=== PATIENT | male | born 1980 | race Caucasian/White ===

== ENCOUNTER 2017-07-15 05:53 | Day surgery (SDC) | payer OTHER ==
[2017-07-08 09:55] VITALS: BMI 32.0
--- NOTE | 2017-07-08 10:17 | PAT Medication Instructions ---
Service Date Jul 08, 2017. Current Home Medication List Atorvastatin (Lipitor), 80 MG PO QPM Cholecalciferol (D 1000), 1 CAP PO QPM Fenofibrate (Tricor), 54 MG PO QPM Insulin Glargine (Lantus), 60 UNITS SC QAM Insulin Glulisine (Apidra), 12 UNITS SC AC Lisinopril/Hctz (Zestoretic 20MG/25MG), 1 TAB PO QPM Medication Instructions For Your Scheduled Surgery - Hold the following medications 24 hours prior to surgery: Lisinopril/Hctz (Zestoretic 20MG/25MG), 1 TAB PO QPM Fenofibrate (Tricor), 54 MG PO QPM - Hold the following medications the morning of surgery: Insulin Glulisine (Apidra), 12 UNITS SC AC - Take the following medications as scheduled the night before surgery: Atorvastatin (Lipitor), 80 MG PO QPM Cholecalciferol (D 1000), 1 CAP PO QPM - For Insulin Dependent Diabetic patients: Test blood sugar A.M. of surgery. - If Blood sugar greater than 150, take half of your regular dose of: Insulin Glargine (Lantus), take 30 units - If Blood sugar less than 150, do not take any: Insulin Glargine (Lantus ) If you have any questions please call us at [phone] or [phone] or [phone]
--- NOTE | 2017-07-08 10:46 | DIAGNOSTIC IMAGING REPORT ---
CHEST 2 VIEWS ROUTINE CLINICAL HISTORY: PAT COMPARISON STUDY: No previous studies for comparison. FINDINGS: The bones soft tissues and hemidiaphragms are normal. The cardiomediastinal silhouette is normal. The lungs are clear. The pulmonary vasculature is normal. IMPRESSION: Negative chest. The above report was generated using voice recognition software. It may contain grammatical, syntax or spelling errors. Electronically signed by: Reinaldo Calix M.D. 07/08/2017 10:45 AM Dictated Date/Time: 07/08/2017 10:44 AM
[2017-07-08 11:13] LABS: CALCIUM 8.4 mg/dl (8.5-10.1); CREATININE 3.42 mg/dl (0.60-1.40); POTASSIUM 4.5 mmol/L (3.5-5.1)
[2017-07-08 11:15] LABS: INR 0.9 (0.9-1.1); PTT PATIENT 24.1 SECONDS (21.0-31.0)
[2017-07-08 11:18] LABS: HEMATOCRIT 31.8 % (42-52); HEMOGLOBIN 11.1 g/dL (14.0-18.0); MEAN CELL VOLUME 85.3 fL (80-100); MEAN CORPUSCULAR HEMOGLOBIN 29.8 pg (25-34); MEAN CORPUSCULAR HGB CONC 34.9 g/dl (32-36); MEAN PLATELET VOLUME 9.8 fL (7.4-10.4); PLATELET COUNT 333 K/uL (130-400); RED CELL DISTRIBUTION WIDTH CV 13.2 % (11.5-14.5); RED CELL DISTRIBUTION WIDTH SD 40.6 fL (36.4-46.3); WHITE BLOOD COUNT 7.26 K/uL (4.8-10.8)
[2017-07-08 11:24] LABS: BASO % 0.7 %; BASO ABS # 0.05 K/uL (0-0.2); EOS % 3.6 %; EOS ABS # 0.26 K/uL (0-0.5); IG# 0.09 K/uL (0.00-0.02); LYMPH % 17.1 %; LYMPH ABS # 1.24 K/uL (1.2-3.4); MONO % 6.6 %; MONO ABS # 0.48 K/uL (0.11-0.59); NEUT % 70.8 %; NEUT ABS # 5.14 K/uL (1.4-6.5)
[2017-07-08 11:38] LABS: HEMOGLOBIN A1C 8.6 % (4.5-5.6)
[~2017-07-15] VITALS: Ht 177.8 cm; Wt 102.3 kg
--- NOTE | 2017-07-15 05:51 | History and Physical ---
History & Physical Date of Service Jul 15, 2017. History & Physical Name: JORDAN PHAN [facility] Number: [id number] : 1980 Date of Service: 07/01/2017 Daria Alvarez DO [address] [place] [address] Alvarez: I had the pleasure of seeing Mr. Phan today for followup. As you know, he is a 37-year-old white gentleman with nephrotic syndrome in need of an access for pending dialysis. ALLERGIES: None known. MEDICATIONS: Amlodipine,SoloSTAR, atorvastatin,cholecalciferol, fenofibrate, hydrochlorothiazide and lisinopril. PAST MEDICAL HISTORY: Positive for type 1 diabetes, epilepsy, hypertension, mixed dyslipidemia, sarcoidosis, shingles, tobacco use. FAMILY HISTORY: Positive for hypertension in his father. SOCIAL HISTORY: He is single. He is a former smoker. He quit in 1998, is a current user of snuff and he drinks 2 cans a week. REVIEW OF SYSTEMS: Ten systems were reviewed, only complaint is of occasional back pain. PHYSICAL EXAMINATION: The patient is awake, oriented x3, is in no apparent distress. Blood pressure is 130/80 on the right, 140/80 on the left. Head and neck within normal limits. No carotid bruits. Lungs are clear. Heart, regular rate and rhythm. Abdominal exam is benign. Vascular exam, his radials , carotids, supratemporal arteries +2 bilaterally. His venous imaging showed a usable cephalic vein in the right forearm. Left arm had no usable veins other than the upper arm basilic vein. He is right-handed. Neurologic exam is grossly intact. IMPRESSION: End-stage renal disease. PLAN AND RECOMMENDATION: At this point, we recommend a right wrist AV fistula. He understood the risks, options, benefits and agreed to go ahead with this procedure. This will be scheduled in the near future. We will keep you informed as to results. Thank you very much for allowing us to participate in the care of this patient. #[id number] Signature Line Electronic Signature on File CC: Daria Rivera [place], [address] [place] [address] * Electronically Reviewed/Signed by: Juan Reina MD Author Signature Dt/Tm:07/03/2017 09:37 AM School Community Relations Coordinator Angelo Schreiber [facility] [place], [address] [place], [place] [address] ANDREW /FELECIA Result Type: .Consult Date of Service: July 01, 2017 00:00 Authorization Status: Final Subject: Consult Ltr Author or Import Date: MD Reina Eugene J on July 01, 2017 16:16 Verified By: MD Reina Eugene J on July 03, 2017 09:37 Encounter info: [id number], [place] [address], Clinic, 07/01/2017 - 07/02/2017 Contributor system: [id number]
[~2017-07-15 05:53] MED LIST: ATOR-26 PO; CHOL100041 PO; FENO54TA PO; INSDGI SC; LISI-788 PO; [UNRECOGNIZED DRUG - OTHER] SC
[2017-07-15] MEDS ORDERED: CEFAZOLIN 2000MG IV PUSH 15 ML IV SCH (06:00)
[2017-07-15] MEDS ORDERED: SODIUM CHLORIDE 0.9% 1000ML 1,000 ML IV SCH ×2 (06:00)
[2017-07-15 06:07] VITALS: BP 143/86; PULSE 80; TEMP 36.7; O2SAT 97; Ht 177.8 cm; Wt 102.3 kg
[2017-07-15] MEDS ORDERED: FENTANYL CITRATE INJ 50 MCG/1 ML 2 ML VIAL ONE (06:22)
[2017-07-15] MEDS ORDERED: MIDAZOLAM HCL 1 MG/ML 2ML VIAL ONE ×2 (06:22→08:02)
[2017-07-15] MEDS ORDERED: PROPOFOL IV EMULSION 10 MG/ML 20 ML VIAL IV ONE ×3 (06:23→08:03)
[2017-07-15] MEDS ORDERED: LIDOCAINE HCL 2% 2 ML VIAL (20MG/ML) ONE (06:23)
[2017-07-15] MEDS ORDERED: ONDANSETRON INJ 2 MG/ML 2 ML VIAL ONE (06:32)
[2017-07-15] MEDS ORDERED: LIDOCAINE HCL 1% 20 ML VIAL ONE (06:54)
[2017-07-15] MEDS ORDERED: THROMBIN FOR SOLN 20000 UNIT KIT ONE (06:54)
[2017-07-15] MEDS ORDERED: GELATIN SPONGE 12-7MM ONE (06:54)
[2017-07-15] MEDS ORDERED: BUPIVACAINE/EPINEPHRINE 0.5% MPF 1:200,000 30 ML VIAL ONE (06:54)
[2017-07-15] MEDS ORDERED: HEPARIN SOD (PORCINE) 1000 UNIT/ML 10 ML VIAL ONE ×2 (06:55→08:12)
[2017-07-15 06:56] LABS: CALCIUM 8.7 mg/dl (8.5-10.1); CREATININE 3.64 mg/dl (0.60-1.40); POTASSIUM 4.6 mmol/L (3.5-5.1)
[2017-07-15] MEDS ORDERED: ATROPINE SULFATE 0.1 MG/ML 5ML SYR IV PRN (07:00)
[2017-07-15] MEDS ORDERED: FENTANYL CITRATE INJ 50 MCG/1 ML 2 ML VIAL IV PRN (07:00)
[2017-07-15] MEDS ORDERED: ONDANSETRON INJ 2 MG/ML 2 ML VIAL IV PRN (07:00)
[2017-07-15] MEDS ORDERED: EpHEDrine SULFATE INJ 50 MG/ML AMP IV PRN (07:00)
--- NOTE | 2017-07-15 07:20 | History & Physical Bridge Note ---
H&P Re-Evaluation Bridge Note: I have examined the patient, reviewed the History & Physical and in the interval since the performance of the History & Physical I have noted the following changes of clinical significance: No changes noted
--- NOTE | 2017-07-15 08:43 | [facility] Post Operative Brief Note ---
Immediate Operative Summary Operative Date Jul 15, 2017. Pre-Operative Diagnosis End-stage renal disease Post-Operative Diagnosis End stage renal disease Procedure(s) Performed Right Wrist Arteriovenous Fistula creation Surgeon Dr. Reina Bag Tester Surgeon(s) Vik Ware PA-C Estimated Blood Loss 5 cc Findings Consistent with Post-Op Diagnosis Specimens none, as per surgeon Drains None Anesthesia Type MAC Complication(s) none Disposition Accompanied Pt To Recover: no Disposition: Recovery Room / PACU
[2017-07-15] MEDS ORDERED: OXYC-57 PO (08:48)
--- NOTE | 2017-07-15 08:49 | Discharge Instructions ---
Discharge Instructions Date of Service Jul 15, 2017. Visit Reason for Visit: End Stage Renal Disease Discharge Discharge Diagnosis / Problem: End stage renal disease Discharge Goals Goal(s): Therapeutic intervention Activity Recommendations Activity Limitations: per Instructions/Follow-up section Lifting Limitations: none Exercise/Sports Limitations: none May Resume Sexual Activity: when tolerated Shower/Bathe: tomorrow Driving or Machine Use: no limitations Anesthesia . Post Anesthesia Instructions: If you have had General Anesthesia or IV Sedation: * Do not drive today. * Resume driving when surgeon permits. * Do not make important decisions or sign legal documents today. * Call surgeon for: 1. Temperature elevations greater than 101 degrees F. 2. Uncontrollable pain. 3. Excessive bleeding. 4. Persistent nausea and vomiting. 5. Medication intolerance (nausea, vomiting or rash). * For nausea and vomiting use only clear liquids such as: tea, soda, bouillon until nausea subsides, then gradually increase diet as tolerated. * If you have any concerns or questions, call your surgeon's office. If physician is unavailable and it is an emergency, call 911 or go to the nearest emergency room. . Instructions / Follow-Up Instructions / Follow-Up Call [phone] to schedule a follow up appointment if one not already scheduled. ACTIVITY RECOMMENDATIONS: See Above SPECIAL CARE INSTRUCTIONS: Call your doctor if: * Temperature above 101 degrees * Pain not relieved by pain medicine ordered * There is increased drainage or redness from any incision * You have any unanswered questions or concerns. Diet Recommendations Recommended Home Diet: resume previous diet Procedures Procedures Performed: Right Wrist Arteriovenous Fistula creation Pending Studies Studies pending at discharge: no Medical Emergencies . Who to Call and When: Medical Emergencies: If at any time you feel your situation is an emergency, please call 911 immediately. . Non-Emergent Contact Non-Emergency issues call your: Surgeon . . "Provider Documentation" section prepared by Juan Reina. .
--- NOTE | 2017-07-15 09:31 | Anesthesiology Progress Note ---
Anesthesia Post Op Note Date & Time Jul 15, 2017 at 09:31 Vital Signs Pain Intensity: 0 Vital Signs Past 12 Hours Date Time Temp Pulse Resp B/P (MAP) Pulse Ox O2 Delivery O2 Flow Rate FiO2 07/15/17 09:20 36.5 75 20 119/73 97 Room Air 07/15/17 09:10 76 16 129/83 92 Room Air 07/15/17 09:03 36.4 81 17 113/70 96 Room Air 07/15/17 06:07 36.7 80 18 143/86 (105) 97 Room Air Notes Mental Status: alert / awake / arousable, participated in evaluation Pt Amnestic to Procedure: Yes Nausea / Vomiting: adequately controlled Pain: adequately controlled Airway Patency, RR, SpO2: stable & adequate BP & HR: stable & adequate Hydration State: stable & adequate Anesthetic Complications: no major complications apparent
[2017-07-15 09:32] VITALS: BP 120/67; PULSE 99; TEMP 36.5; O2SAT 93
--- NOTE | 2017-07-15 09:39 | OPERATIVE REPORT ---
DATE OF OPERATION: 07/15/2017 PREOPERATIVE DIAGNOSIS: End-stage renal disease. POSTOPERATIVE DIAGNOSIS: End-stage renal disease. PROCEDURE: Right radiocephalic AV fistula creation. SURGEON: Dr. Juan Reina. RUBBER COMPOUNDER SUPERVISOR: Dr. Dimple White and Shannon Otto PA-C ESTIMATED BLOOD LOSS: 5 mL. SPECIMENS: None. DRAINS: None. ANESTHESIA: Monitored anesthesia care plus local. INDICATIONS: Mr. Sean Justice is a 37-year-old gentleman with a history of type 1 diabetes, epilepsy, hypertension, dyslipidemia, sarcoidosis, shingles, and nephrotic syndrome with end-stage renal disease. He is not currently on dialysis, but is likely to require dialysis in the near future. For this reason, he was recommended to undergo creation of an AV fistula for hemodialysis access. Risks, benefits and alternatives were discussed with the patient and he consented to the procedure. DESCRIPTION OF PROCEDURE: The patient was taken to the operating room and placed in the supine position. His right arm was prepped and draped in the usual sterile fashion. Safety timeout was performed and the patient, procedure, and sidedness were correctly identified. Sedation was administered by our anesthesia colleagues. Local anesthesia was used to anesthetize the skin just proximal to the right wrist. A 3-cm incision was made between the cephalic vein and the radial artery at the distal forearm. Bovie electrocautery was used to divide subcutaneous tissues. The vein was identified and dissected more distally towards the wrist. It appeared adequate caliber for creation of an AV fistula. The artery was then identified and dissected free. 3000 units of intravenous heparin was then administered. The vein was transected as distally as possible. Heparinized saline was used to dilate the vein. The artery was then clamped proximally and distally. Arteriotomy was created with an 11 blade scalpel. This was extended with Metzenbaum scissors. There was a small amount of calcification appreciated in the radial artery. The vein was cut to length and anastomosed to the radial artery with 7-0 Prolene in a running fashion. All vessels were back bled prior to completion of the anastomosis. Palpable thrill was appreciated following completion of the anastomosis. The wound bed appeared hemostatic. Subcutaneous tissues were closed with 3-0 Vicryl in a running fashion. Skin was reapproximated with 4-0 Vicryl in a running subcuticular fashion. A sterile dressing was applied. The patient tolerated the procedure well and there were no immediate complications. He was transferred to the recovery area in stable condition. Dr. Juan Reina was present for the entire procedure. I attest to the content of the Intraoperative Record and any orders documented therein. Any exception s are noted below.
[2017-07-15 10:02] VITALS: BP 128/83; PULSE 90; TEMP 36.4; O2SAT 95
== END 2017-07-15 10:02 | disposition home or self-care (01) ==
LOC: C.ACU 05:53
PROVIDERS: ATTEND Surgery Vascular Surgery
DX: N18.6 End stage renal disease (principal); N04.9 Nephrotic syndrome with unspecified morphologic changes; E10.22 Type 1 diabetes mellitus with diabetic chronic kidney disease; I12.0 Hypertensive chronic kidney disease with stage 5 chronic kidney disease or end stage renal disease; G40.909 Epilepsy, unspecified, not intractable, without status epilepticus; E78.5 Hyperlipidemia, unspecified; D86.9 Sarcoidosis, unspecified; Z72.0 Tobacco use; Z82.49 Family history of ischemic heart disease and other diseases of the circulatory system; Z79.899 Other long term (current) drug therapy; Z87.891 Personal history of nicotine dependence

== ENCOUNTER 2020-10-13 15:45 | Inpatient (IN) ==
[2020-10-13 16:58] LABS: Basophils # (auto) 0.06 K/uL (0-0.2); Basophils % (auto) 0.7 %; Eosinophils # (auto) 0.39 K/uL (0-0.5); Eosinophils % (auto) 4.8 %; Hemoglobin 7.9 g/dL (14.0-18.0); Immature Granulocytes # (auto) 0.07 K/uL (0.00-0.02); Immature Granulocytes % (auto) 0.9 %; Lymphocytes % (auto) 14.8 %; Mean Corpuscular Hemoglobin 30.4 pg (25-34); Mean Corpuscular Hgb Conc 34.3 g/dL (32-36); Mean Corpuscular Volume 88.5 fL (80-100); Mean Platelet Volume 9.1 fL (7.4-10.4); Monocytes # (auto) 0.48 K/uL (0.11-0.59); Monocytes % (auto) 5.9 %; Neutrophils # (auto) 5.91 K/uL (1.4-6.5); Neutrophils % (auto) 72.9 %; Platelet Count 225 K/uL (130-400); RDW Coefficient of Variation 16.2 % (11.5-14.5); RDW Standard Deviation 52.3 fL (36.4-46.3); White Blood Count 8.11 K/uL (4.8-10.8)
--- NOTE | 2020-10-13 17:19 | XRay Report ---
XR chest 1V portable HISTORY: 40 years-old Male Dyspnea acute shortness of breath COMPARISON: Chest radiograph 08/19/2020 TECHNIQUE: Portable AP view of the chest FINDINGS: Cardiac silhouette is enlarged. Pulmonary vascular congestion with reticular interstitial opacities. No pneumothorax, pleural effusion or lobar airspace consolidation. Bones appear grossly intact. IMPRESSION: Interstitial opacities suggestive of mild pulmonary edema. Interstitial pneumonitis could appear similarly. ACT 112: Negative or not required by law. The above report was generated using voice recognition software. It may contain grammatical, syntax o r spelling errors. Electronically signed by: Jimmy Hernandez M.D. 10/13/2020 5:17 PM
[2020-10-13 17:23] LABS: Alanine Aminotransferase 25 U/L (12-78); Albumin Level 3.4 gm/dl (3.4-5.0); Aspartate Aminotransferase 10 U/L (15-37); BUN Creatinine Ratio 3.1 (10-20); Blood Urea Nitrogen 12 mg/dl (7-18); Calcium 9.2 mg/dl (8.5-10.1); Carbon Dioxide 33 mmol/L (21-32); Chloride 102 mmol/L (98-107); Est GFR (African American) 22.2 ml/min; Est GFR (Non-African American) 19.2 ml/min; Glucose 105 mg/dl (70-99); Magnesium 2.1 mg/dl (1.8-2.4); Sodium 141 mmol/L (136-145)
[2020-10-13 17:33] LABS: Albumin Globulin Ratio 1.1 (0.9-2); Alkaline Phosphatase 93 U/L (45-117); Bilirubin,Total 0.8 mg/dl (0.2-1); Globulin 3.2 gm/dl (2.5-4.0); NT Pro B Type Natriuretic Pept > 35000 pg/ml (0-450); Total Protein 6.6 gm/dl (6.4-8.2); Troponin I 0.076 ng/ml (0-0.045)
[2020-10-13 17:55] LABS: Polychromasia 1+
[2020-10-13] MEDS ORDERED: POTASSIUM CHLORIDE 10 MEQ TABCR PO STA (19:29)
[2020-10-13] MEDS ORDERED: FUROSEMIDE 40 MG/4 ML VIAL IV STA (19:30)
[2020-10-13] MEDS ORDERED: dexAMETHasone 6 MG in SYRINGE 0 ML IV ONE (19:45)
[2020-10-13] MEDS ORDERED: ALBUT/IPRATROP 3MG/0.5MG NEB 3 ML VIAL NEB STA (19:55)
[2020-10-13] MEDS ORDERED: methylPREDNISolone 20 MG in SYRINGE 0 ML IV ONE (20:15)
[2020-10-13 20:43] LABS: Allen Test Pos (Pos); Base Excess ABG 9.1 mEq/L (-9-1.8); HCO3 ABG 34 mmol/L (19-24); PCO2 ABG 47 mmHg (35-46); PO2 ABG 138 mmHg (80-95); Partial Thromboplastin Ratio 0.9; Partial Thromboplastin Time 23.2 Seconds (21.0-31.0); pH ABG 7.47 (7.35-7.45)
[2020-10-13] MEDS ORDERED: AMPICILLIN/SULBACTAM SOD 3,000 MG in 0.9 % SODIUM CHLORIDE 100 ML IV STA (20:56)
--- NOTE | 2020-10-13 20:58 | History & Physical Report ---
Date of Service October 13, 2020 Assessment & Plan (1) Respiratory failure, acute and chronic: Chronic respiratory failure recently on home O2 History pulmonary sarcoidosis Multifactorial : Possible RLD exacerbation from HCAP/possible aspiration pneumonia, possible sepsis Residual pulmonary congestion, cardiorenal syndrome, ESRD on HD chronic systolic heart failure secondary to nonischemic cardiomyopathy as per records (EF 45 to 49%, TTE 2020) HTN, slight elevated Troponin elevation secondary to illness in the setting of abnormal kidney function Acute on chronic anemia, hemoglobin drop from baseline secondary to hemoptysis Rule out GI bleed given dark stool account as per patient DM1, reasonable control as of recent hemoglobin A1c of 7.01 August 2020 hyperlipidemia on statin Rx past tobacco abuse PCU given troponin elevation Supplemental O2 Baseline ABG Steroid course, nebs RTC Unasyn followed by Augmentin course Swallow eval, aspiration precautions Pulmonology consult if without improvement Lasix 1 dose now for pulmonary congestion Continue home diuretic Rx Nephrology consult Re: Dialysis management (ER provider already in touch with Dr. Thomson.) Follow troponin TTE if with significant progression Follow H&H, transfuse PRBC if hemoglobin less than 8 and or for symptomatic anemia Appropriate to hold home aspirin until hemoglobin stable Stool FOBT Basal insulin, ISS BG goal 1 10-1 40, carb count coverage DVT prophylaxis. SCDs Re: Hemoptysis Full code Total critical care time was 45 minutes. Text document was generated using [employer] voice recognition software. It may contain grammatical or spelling errors. Kindly contact undersigned for clarification of any documentation item in question. History of Present Illness Chief Complaint: Low oxygen, shortness of breath Primary Care Provider: Jaime Lovelace MD History obtained from patient and records. Medical history significant for chronic systolic heart failure secondary to nonischemic cardiomyopathy as per records (EF 45 to 49%, TTE 2020), chronic respiratory failure, chronic hemoptysis, pulmonary sarcoidosis, DM1, hypertension, hyperlipidemia, ESRD on HD, history alcohol-related seizures as per records, chronic anemia (recent outpatient hemoglobin 8-9 ), past tobacco abuse. Last confinement [facility] 2011 for DKA. Last confinement [facility] July 2020 for respiratory failure, volume overload, possible ACS, and hemoptysis. TTE showed wall abnormalities in the apical, inferior, posterior and lateral blake EF of 45 to 49%. Cardiac catheterization showed patent coronary arteries with mild luminal irregularity. Patient discharged on aspirin and statin recommendations from Cardiology. Pulmonology was also consulted during confinement for patient's hemoptysis. CT chest during confinement showed diffuse groundglass opacities throughout both lungs differential diagnosis includes edema versus viral infection. Mediastinal lymphadenopathy and coronary atherosclerosis. Hemoptysis attributed to pulmonary edema and bronchoscopy not indicated during confinement as hemoptysis had resolved as per documentation. Outpatient Pulmonology consultation recommended. Persistent shortness of breath, especially on exertion, intermittent hemoptysis since [facility] discharge as per patient. Patient admits to coughing with meals/water intake if not careful. No unusual chest pain, no unusual weight gain as per patient. Patient compliant with outpatient [facility] dialysis appointments. [place] [facility] 3 weeks ago for intermittent hemoptysis symptoms. Patient noted to be hypoxemic O2 sats 80s at time of visit. Broad differential including cardiogenic pulmonary edema, atypical bacterial pneumonia as per documentation. Mediastinal adenopathy increased on CT as per note. Concern for development of cardiac sarcoidosis. Mold Stamper recommended supplemental O2 at home with [address] chest early November 2020, full PFTs including DLCO, lung volumes, spirometry. Home O2 supplies recommended by percussion tuner only received by patient today at home. At outpatient dialysis today, patient pulse ox noted to be 80s on room air. Patient noted to be pale and feeling like he was going to pass out. Patient denies chest pain. Complaining of hemoptysis without fever and chills. Dark stools attributed to iron as per patient. Patient denies abdominal pain. Patient directed to ER for evaluation by instrument lens grinder apprentice green promotions specialist. MEDICAL HISTORY: As above. SURGICAL HISTORY: LN biopsy. Mediastinoscopy, vitrectomy FAMILY HISTORY: DM, hypertension PERSONAL SOCIAL HISTORY: Past tobacco abuse, no recent EtOH intake, disabled Allergies Allergy/AdvReac Type Severity Reaction Status Date / Time No Known Allergies Allergy Unknown Verified 10/13/20 18:20 Home Medications Medication Instructions Recorded Confirmed Type Lantus Solostar U-100 Insulin 56 unit SUBCUT HS 05/24/19 10/13/20 History amlodipine 10 mg PO HS 06/11/19 10/13/20 History calcium acetate(phosphat bind) 667 mg PO UD 06/11/19 10/13/20 History lisinopril 40 mg PO HS 06/11/19 10/13/20 History Myrna-Bello 1 tab PO DAILY 02/03/20 10/13/20 History calcium carbonate [Tums] 200 mg PO DAILY 02/03/20 10/13/20 History hydralazine 25 mg PO BID 02/03/20 10/13/20 History albuterol sulfate 2 puff INHALATION Q6 PRN 10/13/20 10/13/20 History atorvastatin 40 mg PO DAILY 10/13/20 10/13/20 History ferric citrate [Auryxia] 1 tab PO TIDM 10/13/20 10/13/20 History insulin aspart U-100 [Novolog 16 unit SUBCUT AC 10/13/20 10/13/20 History Flexpen U-100 Insulin] lorazepam 1 mg PO UD 10/13/20 10/13/20 History metoprolol succinate 50 mg PO BID 10/13/20 10/13/20 History torsemide 100 mg PO DAILY 10/13/20 10/13/20 History Past Med/Surg History Medical History (Updated 10/14/20 @ 04:15 by Donovan Tam MD) A-V fistula right Anemia Diabetes IDDM (Type 1 per records) Dyslipidemia End stage renal disease diaylsis - M,W,F ([facility], [place]) Hypertension Nephrotic syndrome Obesity Sarcoidosis per records Seizure disorder remote hx (2007) in setting of hypoglycemia (?ETOH related per records), no issues since Surgical History History of vascular access device permacath insertion Hx of biopsy kidney bx PONV (postoperative nausea and vomiting) Status post creation of arteriovenous fistula right: 07/15/17: MAC sedation at [facility] Social History Smoking Status: Unknown if ever smoked Second Hand Exposure: No; Hx Alcohol Use: No Hx Substance Use: No Preferred Language: Beninese Communication Ability: Effective Disk Sharpener Required: No Beliefs That Will Affect Care: None Current Living Situation: Other Current Living Situation Comment: two story house with two roomates Other Information That Helps Us Care for You: No Feels Safe at Home: Yes Safety Concerns: Feels Safe At This Time Assistive Devices: None Review of Systems Review of Systems: As per HPI, all 10 systems reviewed, all other ROS negative Physical Exam Physical Exam: GENERAL: Comfortable, obese, minimal respiratory distress SKIN: Pallor, multiple skin tattoos, warm HEENT: Pale palpebral conjunctivae, no ptosis, dry buccal mucosa, O2 mask in place NECK : Supple, short neck, no tenderness CHEST : Decreased breath sounds, no tenderness HEART : RRR, no obvious murmurs ABDOMEN: Some distention, nontender RECTAL : Refused EXTREMITIES : Minimal LE swelling, no LE tenderness, no other conspicuous deformities noted NEUROLOGIC : Coherent, no facial asymmetry, no other gross focality Results & Data Results & Data ([facility]) Vital Signs (Past 12 Hours) Vital Signs Temp Pulse Pulse Resp BP Pulse Ox 10/13/20 20:50 83 18 96 10/13/20 20:30 83 17 156/95 H 99 10/13/20 20:22 80 16 100 10/13/20 20:00 77 24 154/90 H 100 10/13/20 19:30 75 25 H 144/83 H 100 10/13/20 19:10 81 L 10/13/20 19:01 76 L 10/13/20 19:00 162/80 H 69 L 10/13/20 18:30 172/78 H 91 10/13/20 18:00 150/74 H 85 L 10/13/20 17:30 160/83 H 97 10/13/20 17:16 99 10/13/20 17:15 99 10/13/20 17:00 132/81 98 10/13/20 16:30 80 23 152/88 H 98 10/13/20 16:00 82 18 150/89 H 99 10/13/20 15:50 36.3 C L 83 20 146/73 H 84 L Laboratory Results Laboratory Results WBC 8.11 K/uL (4.8-10.8) 10/13/20 16:35 RBC 2.60 M/uL (4.7-6.1) L 10/13/20 16:35 Hgb 7.9 g/dL (14.0-18.0) L 10/13/20 16:35 Hct 23.0 % (42-52) L 10/13/20 16:35 MCV 88.5 fL (80-100) 10/13/20 16:35 MCH 30.4 pg (25-34) 10/13/20 16:35 MCHC 34.3 g/dL (32-36) 10/13/20 16:35 RDW Std Deviation 52.3 fL (36.4-46.3) H 10/13/20 16:35 RDW Coeff of Selin 16.2 % (11.5-14.5) H 10/13/20 16:35 Plt Count 225 K/uL (130-400) 10/13/20 16:35 MPV 9.1 fL (7.4-10.4) 10/13/20 16:35 Immature Gran % (Auto) 0.9 % 10/13/20 16:35 Neut % (Auto) 72.9 % 10/13/20 16:35 Lymph % (Auto) 14.8 % 10/13/20 16:35 Travis % (Auto) 5.9 % 10/13/20 16:35 Eos % (Auto) 4.8 % 10/13/20 16:35 Baso % (Auto) 0.7 % 10/13/20 16:35 Neut # (Auto) 5.91 K/uL (1.4-6.5) 10/13/20 16:35 Lymph # (Auto) 1.20 K/uL (1.2-3.4) 10/13/20 16:35 Travis # (Auto) 0.48 K/uL (0.11-0.59) 10/13/20 16:35 Eos # (Auto) 0.39 K/uL (0-0.5) 10/13/20 16:35 Baso # (Auto) 0.06 K/uL (0-0.2) 10/13/20 16:35 Immature Gran # (Auto) 0.07 K/uL (0.00-0.02) H 10/13/20 16:35 Polychromasia 1+ 10/13/20 16:35 APTT 23.2 Seconds (21.0-31.0) 10/13/20 20:19 PTT Ratio 0.9 10/13/20 20:19 ABG pH 7.47 (7.35-7.45) H 10/13/20 20:19 ABG pCO2 47 mmHg (35-46) H 10/13/20 20:19 ABG pO2 138 mmHg (80-95) H 10/13/20 20:19 ABG HCO3 34 mmol/L (19-24) H 10/13/20 20:19 ABG O2 Saturation 99.0 % (90-95) H 10/13/20 20:19 ABG Base Excess 9.1 mEq/L (-9-1.8) H 10/13/20 20:19 Bandar Test Pos (Pos) 10/13/20 20:19 Barometric Pressure 741.8 mm/Hg 10/13/20 20:19 Oxygen Given 10 10/13/20 20:19 Sodium 141 mmol/L (136-145) 10/13/20 16:35 Potassium 3.0 mmol/L (3.5-5.1) L 10/13/20 16:35 Chloride 102 mmol/L (98-107) 10/13/20 16:35 Carbon Dioxide 33 mmol/L (21-32) H 10/13/20 16:35 Anion Gap 6.0 (3-11) 10/13/20 16:35 BUN 12 mg/dl (7-18) 10/13/20 16:35 Creatinine 3.76 mg/dl (0.6-1.4) H 10/13/20 16:35 Est Cr Clr Drug Dosing Not Reportable 10/13/20 16:35 Est GFR ( Amer) 22.2 ml/min 10/13/20 16:35 Est GFR (Non-Af Amer) 19.2 ml/min 10/13/20 16:35 BUN/Creatinine Ratio 3.1 (10-20) L 10/13/20 16:35 Glucose 105 mg/dl (70-99) H 10/13/20 16:35 Lactate 0.4 mmol/L (0.4-2.0) 10/13/20 20:19 Calcium 9.2 mg/dl (8.5-10.1) 10/13/20 16:35 Magnesium 2.1 mg/dl (1.8-2.4) 10/13/20 16:35 Total Bilirubin 0.8 mg/dl (0.2-1) 10/13/20 16:35 AST 10 U/L (15-37) L 10/13/20 16:35 ALT 25 U/L (12-78) 10/13/20 16:35 Alkaline Phosphatase 93 U/L (45-117) 10/13/20 16:35 Troponin I 0.076 ng/ml (0-0.045) H* 10/13/20 16:35 NT-Pro-B Natriuret Pep > 17557 pg/ml (0-450) H 10/13/20 16:35 Total Protein 6.6 gm/dl (6.4-8.2) 10/13/20 16:35 Albumin 3.4 gm/dl (3.4-5.0) 10/13/20 16:35 Globulin 3.2 gm/dl (2.5-4.0) 10/13/20 16:35 Albumin/Globulin Ratio 1.1 (0.9-2) 10/13/20 16:35 COVID-19 Eval Order Covid19 IDNow atMMDC 10/13/20 16:39 SARS-CoV-2, RNA, NAAT NEGATIVE (NEGATIVE) 10/13/20 16:39 Impressions Chest X-Ray 10/13/20 16:18 XR chest 1V portable HISTORY: 40 years-old Male Dyspnea acute shortness of breath COMPARISON: Chest radiograph 08/19/2020 TECHNIQUE: Portable AP view of the chest FINDINGS: Cardiac silhouette is enlarged. Pulmonary vascular congestion with reticular interstitial opacities. No pneumothorax, pleural effusion or lobar airspace consolidation. Bones appear grossly intact. IMPRESSION: Interstitial opacities suggestive of mild pulmonary edema. Interstitial pneumonitis could appear similarly. ACT 112: Negative or not required by law. The above report was generated using voice recognition software. It may contain grammatical, syntax or spelling errors. Electronically signed by: Jimmy Hernandez M.D. 10/13/2020 5:[address] chest: 1. Diffuse interlobular septal thickening with small bilateral pleural effusions and mild cardiomegaly. This likely represents interstitial pulmonary edema. 2. There are near diffuse groundglass airspace opacities most pronounced within the base of the right lower lobe. This likely represents an alveolar component of the pulmonary edema. A superimposed pneumonia cannot be excluded. 3. There are few small scattered nodular densities within the lungs measuring up to 6 mm. These are nonspecific but may correspond to the patient's history of sarcoidosis. A [address] follow-up is recommended to ensure stability/resolution. 4. Mild mediastinal and bilateral hilar lymphadenopathy. This can be seen in the setting of sarcoidosis or chronic pulmonary edema. This bears watching on future examinations to ensure stability. LE venous Dopplers: No DVT within the right or left lower extremity. EKG as per my interpretation : Rate 80, NSR, LAD, LAFB, no ischemia
--- NOTE | 2020-10-13 21:56 | Emergency Department Note ---
History of Present Illness General Chief complaint: Shortness of Breath/Dyspnea Stated complaint: LOW OXYGEN,AT LOWEST 76 Time Seen by Provider: 10/13/20 16:02 Source: patient and RN notes reviewed Mode of arrival: ambulatory Limitations: no limitations History of Present Illness Provider complaint: Shortness of breath, hypoxia at dialysis This patient is a 40-year-old male who presents emergency department from [facility] with complaints of shortness of breath and hypoxia. Patient states he is a dialysis dependent end-stage renal disease patient due to complications of lifelong diabetes. He has had a complicated recent several months and was sent from [place] to [facility] after a hypoxic respiratory failure episode in July. He has been seen by both cardiology and pulmonary medicine and nandao jaxson with a nonischemic cardiomyopathy. Patient received his home oxygen yesterday and is supposed to be wearing 1 L by nasal cannula however he states he cannot stand the nasal cannula and likes to wear the oxymask. Patient denies any recent fevers, chills, chest pain or significant cough. Per EMS report the patient was in the mid 80s on his oxygen at dialysis. Patient refused to ambulate transport and his father brought him to the ER. He states he was fairly asymptomatic at the time. He states he was able to complete a full 4- hour dialysis treatment today and is currently below his dry weight. Home Medications Medication Instructions Recorded Confirmed Type Lantus Solostar U-100 Insulin 56 unit SUBCUT HS 05/24/19 10/13/20 History amlodipine 10 mg PO HS 06/11/19 10/13/20 History calcium acetate(phosphat bind) 667 mg PO UD 06/11/19 10/13/20 History lisinopril 40 mg PO HS 06/11/19 10/13/20 History Myrna-Bello 1 tab PO DAILY 02/03/20 10/13/20 History calcium carbonate [Tums] 200 mg PO DAILY 02/03/20 10/13/20 History hydralazine 25 mg PO BID 02/03/20 10/13/20 History albuterol sulfate 2 puff INHALATION Q6 PRN 10/13/20 10/13/20 History atorvastatin 40 mg PO DAILY 10/13/20 10/13/20 History ferric citrate [Auryxia] 1 tab PO TIDM 10/13/20 10/13/20 History insulin aspart U-100 [Novolog 16 unit SUBCUT AC 10/13/20 10/13/20 History Flexpen U-100 Insulin] lorazepam 1 mg PO UD 10/13/20 10/13/20 History metoprolol succinate 50 mg PO BID 10/13/20 10/13/20 History torsemide 100 mg PO DAILY 10/13/20 10/13/20 History Allergies Allergy/AdvReac Type Severity Reaction Status Date / Time No Known Allergies Allergy Unknown Verified 10/13/20 18:20 Past Med/Surg History Medical History A-V fistula right Anemia Chronic respiratory failure with hypoxia Diabetes IDDM (Type 1 per records) Dyslipidemia End stage renal disease diaylsis - M,W,F ([facility], [place]) Heart failure with reduced ejection fraction Hypertension Obesity Sarcoidosis per records Seizure disorder remote hx (2007) in setting of hypoglycemia (?ETOH related per records), no issues since Surgical History History of vascular access device permacath insertion Hx of biopsy kidney bx PONV (postoperative nausea and vomiting) Status post creation of arteriovenous fistula right: 07/15/17: MAC sedation at [facility] Family History Father Hypertension Social History Smoking Status: Unknown if ever smoked Second Hand Exposure: No; Hx Alcohol Use: No Hx Substance Use: No Preferred Language: Slovenian Communication Ability: Effective Car Body Mechanic Required: No Beliefs That Will Affect Care: None Current Living Situation: Other Current Living Situation Comment: two story house with two roomates Other Information That Helps Us Care for You: No Feels Safe at Home: Yes Safety Concerns: Feels Safe At This Time Assistive Devices: Glasses and Oxygen - Continuous Review of Systems See HPI for pertinent positives & negatives. and A total of 10 systems reviewed and were otherwise negative Physical Exam Vital Signs Vital Signs - 24 hr 10/13/20 19:00 10/13/20 19:01 10/13/20 19:10 Pulse Rate Pulse Rate [Right Radial] Pulse Rate from SpO2 Sensor 85 94 H 83 Respiratory Rate Respiratory Effort / Characteristics Blood Pressure 162/80 H Blood Pressure Mean 107 Pulse Oximetry 69 L 76 L 81 L Oxygen Delivery Method Oxymask Oxymask Oxymask Oxygen Flow Rate 4 4 10 Oxygen Flow Rate - Titration 10 Pulse Oximetry Post Tiitration 81 L 10/13/20 19:20 10/13/20 19:30 10/13/20 20:00 Pulse Rate 75 77 Pulse Rate [Right Radial] Pulse Rate from SpO2 Sensor 75 77 Respiratory Rate 25 H 24 Respiratory Effort / Characteristics Blood Pressure 144/83 H 154/90 H Blood Pressure Mean 103 111 Pulse Oximetry 100 100 Oxygen Delivery Method Non-rebreather Oxygen Flow Rate Oxygen Flow Rate - Titration 15 Pulse Oximetry Post Tiitration 100 10/13/20 20:22 10/13/20 20:30 10/13/20 20:50 Pulse Rate 83 83 Pulse Rate [Right Radial] 80 Pulse Rate from SpO2 Sensor 83 84 Respiratory Rate 16 17 18 Respiratory Effort / Characteristics Non-Labored Spontaneous Blood Pressure 156/95 H Blood Pressure Mean 115 Pulse Oximetry 100 99 96 Oxygen Delivery Method Oxymask Oxymask Oxygen Flow Rate 10 10 Oxygen Flow Rate - Titration Pulse Oximetry Post Tiitration 10/13/20 21:01 Pulse Rate Pulse Rate [Right Radial] Pulse Rate from SpO2 Sensor 98 H Respiratory Rate Respiratory Effort / Characteristics Blood Pressure 189/64 H Blood Pressure Mean 105 Pulse Oximetry 98 Oxygen Delivery Method Oxygen Flow Rate Oxygen Flow Rate - Titration Pulse Oximetry Post Tiitration Vital signs reviewed. General: Chronically ill-appearing 40-year-old male, in no significant distress. Right upper extremity fistula HEENT: No scleral icterus, PERRLA, neck supple. Atraumatic. Cardiovascular: Regular rate and rhythm, no extra sounds. Pulmonary: Clear to auscultation bilaterally, normal work of breathing. Abdomen: Soft, somewhat obese, nontender, nondistended, positive bowel sounds. Musculoskeletal: Atraumatic, minimal peripheral edema. Generalized muscular atrophy Neurologic: Patient awake alert and oriented x 3 Skin: Warm, dry, no rash Course Administered Medications Amlodipine Besylate (Amlodipine Besylate 5 Mg Tab) 10 mg PO HS CHENG Stop: 11/12/20 23:24 Last Admin: 10/14/20 00:36 Dose: 10 mg Documented by: [id number] Atorvastatin Calcium (Atorvastatin 40 Mg Tab) 40 mg PO DAILY CHENG Stop: 11/13/20 08:59 Last Admin: 10/14/20 08:02 Dose: 40 mg Documented by: [id number] Calcium Acetate (Calcium Acetate 667 Mg Cap/Tab) 1,334 mg PO AC CHENG Stop: 11/13/20 07:29 Last Admin: 10/14/20 16:06 Dose: 1,334 mg Documented by: [id number] Admin: 10/14/20 15:49 Dose: Not Given Documented by: [id number] Admin: 10/14/20 07:59 Dose: 1,334 mg Documented by: [id number] Calcium Carbonate (Calcium Carbonate 500 Mg Chewable Tab) 250 mg PO DAILY CHENG Stop: 11/13/20 08:59 Last Admin: 10/14/20 08:02 Dose: 250 mg Documented by: [id number] Hydralazine HCl (Hydralazine Hcl 25 Mg Tab) 25 mg PO BID CHENG Stop: 11/12/20 23:24 Last Admin: 10/14/20 08:00 Dose: 25 mg Documented by: [id number] Admin: 10/14/20 00:36 Dose: 25 mg Documented by: [id number] Insulin Aspart (Insulin Aspart 100 Units/Ml 3 Ml Pen) 0 units SC Q4 CHENG Stop: 11/13/20 10:59 Last Admin: 10/14/20 16:51 Dose: 10 units Documented by: [id number] Cosigned by: [id number] Admin: 10/14/20 16:05 Dose: 6 units Documented by: [id number] Cosigned by: [id number] Admin: 10/14/20 11:48 Dose: 13 units Documented by: [id number] Cosigned by: [id number] Ipratropium [place] (Ipratropium [place] Neb Soln 0.02% 2.5 Ml Vial) 0.5 mg INH Q6R [facility] Stop: 11/13/20 00:59 Last Admin: 10/14/20 12:55 Dose: Not Given Documented by: [id number] Admin: 10/14/20 07:24 Dose: 0.5 mg Documented by: [id number] Admin: 10/14/20 01:16 Dose: Not Given Documented by: [id number] Levalbuterol HCl (Levalbuterol 1.25mg/0.5ml Neb) 1.25 mg INH Q6R CHENG Stop: 11/13/20 00:59 Last Admin: 10/14/20 12:55 Dose: Not Given Documented by: [id number] Admin: 10/14/20 07:24 Dose: 1.25 mg Documented by: [id number] Admin: 10/14/20 01:16 Dose: Not Given Documented by: [id number] Lisinopril (Lisinopril 40 Mg Tab) 40 mg PO HS [facility] Stop: 11/12/20 23:24 Last Admin: 10/14/20 00:37 Dose: 40 mg Documented by: [id number] Metoprolol Succinate (Metoprolol Succ 50mg Ext Rel Tab) 50 mg PO BID CHENG Stop: 11/12/20 23:24 Last Admin: 10/14/20 08:00 Dose: 50 mg Documented by: [id number] Admin: 10/14/20 00:38 Dose: 50 mg Documented by: [id number] Miscellaneous (Ferric Citrate [Auryxia]: Order Awaiting Action) 1 ea N/A QS [facility] Stop: 11/13/20 07:59 Last Admin: 10/14/20 16:06 Dose: Not Given Documented by: [id number] Admin: 10/14/20 08:03 Dose: Not Given Documented by: [id number] Miscellaneous (Carbohydrates For Hypoglycemia ) 15 - 30 gm PO UD PRN PRN Reason: Hypoglycemia Protocol Stop: 11/12/20 23:24 Last Admin: 10/14/20 15:23 Dose: 15 gm Documented by: [id number] Torsemide (Torsemide 100 Mg Tab) 100 mg PO DAILY CHENG Stop: 11/13/20 08:59 Last Admin: 10/14/20 08:00 Dose: 100 mg Documented by: [id number] Vitamin B Complex/Folic Acid (Nephrocaps) 1 cap PO DAILY CHENG Stop: 11/13/20 08:59 Last Admin: 10/14/20 08:01 Dose: 1 cap Documented by: [id number] Discontinued Medications Albuterol (Albut/Ipratrop 3mg/0.5mg Neb 3 Ml Vial) 3 ml NEB NOW STA Stop: 10/13/20 19:56 Last Admin: 10/13/20 20:20 Dose: 3 ml Documented by: [id number] Amoxicillin/Clavulanate Potassium (Amoxicillin/Clavulanate 500 Mg Tab) 1 tab PO Q24H CHENG Stop: 10/21/20 07:59 Last Admin: 10/14/20 08:01 Dose: 1 tab Documented by: [id number] Amoxicillin/Clavulanate Potassium (Amoxicillin/Clavulanate 500 Mg Tab) 1 tab PO TODAY@1000,1400 [facility] Stop: 10/14/20 14:01 Last Admin: 10/14/20 10:10 Dose: 1 tab Documented by: [id number] Epoetin Terrell (Epoetin Terrell 20,000 Units/Ml Vial) 20,000 units IV 0930 CHENG Stop: 10/14/20 16:00 Last Admin: 10/14/20 10:11 Dose: 20,000 units Documented by: [id number] Furosemide (Furosemide 40 Mg/4 Ml Vial) 100 mg IV NOW STA Stop: 10/13/20 19:31 Last Admin: 10/13/20 20:34 Dose: 100 mg Documented by: [id number] Heparin Sodium (Porcine) (Heparin Sod (Porcine) 1000 Unit/Ml) 1,000 units IV ONE ONE Stop: 10/14/20 08:58 Last Admin: 10/14/20 10:11 Dose: Not Given Documented by: [id number] Heparin Sodium (Porcine) (Heparin Sod (Porcine) 1000 Unit/Ml) 400 units IV Q1H [facility] Stop: 10/14/20 11:01 Last Admin: 10/14/20 10:11 Dose: Not Given Documented by: [id number] Admin: 10/14/20 10:11 Dose: Not Given Documented by: [id number] Admin: 10/14/20 10:11 Dose: Not Given Documented by: [id number] Methylprednisolone 20 mg/ (Syringe) 0.32 mls @ 1.5 mls/min IV ONE ONE Stop: 10/13/20 20:16 Last Admin: 10/13/20 21:15 Dose: Not Given Documented by: [id number] Ampicillin Sodium/Sulbactam Sodium 3,000 mg/ Sodium Chloride 108 mls @ 200 mls/hr IV NOW STA Stop: 10/13/20 21:28 Last Infusion: 10/13/20 22:14 Dose: 0 mls/hr Documented by: [id number] Admin: 10/13/20 21:14 Dose: 200 mls/hr Documented by: [id number] Insulin Human Regular 10 units (/ Syringe) 10 mls @ 30 mls/min IV NOW ONE Stop: 10/14/20 11:31 Last Admin: 10/14/20 11:49 Dose: 30 mls/min Documented by: [id number] Cosigned by: [id number] Insulin Aspart (Insulin Aspart 100 Units/Ml 3 Ml Pen) 0 units SC ACHS CHENG Stop: 11/13/20 00:14 Last Admin: 10/14/20 07:57 Dose: 16 units Documented by: [id number] Cosigned by: [id number] Admin: 10/14/20 00:45 Dose: 11 units Documented by: [id number] Cosigned by: [id number] Insulin Glargine (Insulin Glargine Solostar 100 Units/Ml 3 Ml Pen) 25 units SC NOW STA Stop: 10/14/20 00:03 Last Admin: 10/14/20 00:45 Dose: 25 units Documented by: [id number] Cosigned by: [id number] Insulin Glargine (Insulin Glargine Solostar 100 Units/Ml 3 Ml Pen) 25 units SC BID CHENG Stop: 11/13/20 08:59 Last Admin: 10/14/20 08:03 Dose: 25 units Documented by: [id number] Cosigned by: [id number] Lorazepam (Lorazepam 1 Mg Tab) 1 mg PO NOW STA Stop: 10/14/20 10:17 Last Admin: 10/14/20 10:54 Dose: 1 mg Documented by: [id number] Methylprednisolone (Methylprednisolone 40 Mg/Ml Vial) Confirm Administered Dose 40 mg .ROUTE .STK-MED ONE Stop: 10/13/20 21:13 Last Admin: 10/13/20 21:15 Dose: 20 mg Documented by: [id number] Potassium Chloride (Potassium Chloride 10 Meq Tabcr) 50 meq PO NOW STA Stop: 10/13/20 19:30 Last Admin: 10/13/20 20:06 Dose: 50 meq Documented by: [id number] Prednisone (Prednisone 20 Mg Tab) 20 mg PO DAILY CHENG Stop: 10/18/20 08:59 Last Admin: 10/14/20 08:00 Dose: 20 mg Documented by: [id number] Critical Care Time Critical Care Time: Yes Total Critical Care Time: 32 I have personally spent greater than 32 minutes of critical care time in the direct management of this patient. This includes bedside care, interpretation of diagnostic studies, and testing, discussion with consultants, patient, and family members, and other required patient management activities. This 32 minutes is in excess of all separately billable procedures. Medical Decision Making Differential Diagnosis Reactive airway disease, pneumonia, pneumothorax, COPD, CHF, infections, cardiac ischemia, pulmonary embolism, musculoskeletal, gastrointestinal, as well as other pathologies. Medical Records Attestation: I reviewed the patient's medical records. Home Medications Current Medication List: was personally reviewed by me Laboratory Data Attestation: I reviewed the patient's lab results. Result diagrams: 10/14/20 05:51 10/14/20 07:56 Lab Results 10/13/20 10/13/20 10/13/20 Range/Units 16:35 16:35 16:39 WBC 8.11 (4.8-10.8) K/uL RBC 2.60 L (4.7-6.1) M/uL Hgb 7.9 L (14.0-18.0) g/dL Hct 23.0 L (42-52) % MCV 88.5 (80-100) fL MCH 30.4 (25-34) pg MCHC 34.3 (32-36) g/dL RDW Std Deviation 52.3 H (36.4-46.3) fL RDW Coeff of Selin 16.2 H (11.5-14.5) % Plt Count 225 (130-400) K/uL MPV 9.1 (7.4-10.4) fL Immature Gran % (Auto) 0.9 % Neut % (Auto) 72.9 % Lymph % (Auto) 14.8 % [place] % (Auto) 5.9 % Eos % (Auto) 4.8 % Baso % (Auto) 0.7 % Neut # (Auto) 5.91 (1.4-6.5) K/uL Lymph # (Auto) 1.20 (1.2-3.4) K/uL [place] # (Auto) 0.48 (0.11-0.59) K/uL Eos # (Auto) 0.39 (0-0.5) K/uL Baso # (Auto) 0.06 (0-0.2) K/uL Immature Gran # (Auto) 0.07 H (0.00-0.02) K/uL Polychromasia 1+ APTT (21.0-31.0) Seconds PTT Ratio ABG pH (7.35-7.45) ABG pCO2 (35-46) mmHg ABG pO2 (80-95) mmHg ABG HCO3 (19-24) mmol/L ABG O2 Saturation (90-95) % ABG Base Excess (-9-1.8) mEq/L Bandar Test (Pos) Barometric Pressure mm/Hg Oxygen Given Sodium 141 (136-145) mmol/L Potassium 3.0 L (3.5-5.1) mmol/L Chloride 102 (98-107) mmol/L Carbon Dioxide 33 H (21-32) mmol/L Anion Gap 6.0 (3-11) BUN 12 (7-18) mg/dl Creatinine 3.76 H (0.6-1.4) mg/dl Est Cr Clr Drug Dosing Not Reportable Est GFR ( Amer) 22.2 ml/min Est GFR (Non-Af Amer) 19.2 ml/min BUN/Creatinine Ratio 3.1 L (10-20) Glucose 105 H (70-99) mg/dl Lactate (0.4-2.0) mmol/L Calcium 9.2 (8.5-10.1) mg/dl Magnesium 2.1 (1.8-2.4) mg/dl Total Bilirubin 0.8 (0.2-1) mg/dl AST 10 L (15-37) U/L ALT 25 (12-78) U/L Alkaline Phosphatase 93 (45-117) U/L Troponin I 0.076 H* (0-0.045) ng/ml NT-Pro-B Natriuret Pep > 78523 H (0-450) pg/ml Total Protein 6.6 (6.4-8.2) gm/dl Albumin 3.4 (3.4-5.0) gm/dl Globulin 3.2 (2.5-4.0) gm/dl Albumin/Globulin Ratio 1.1 (0.9-2) Procalcitonin (0-0.5) ng/ml COVID-19 [email or web address]-2, RNA, NAAT (NEGATIVE) Blood Type Antibody Screen 10/13/20 10/13/20 10/13/20 Range/Units 16:39 20:19 20:19 WBC (4.8-10.8) K/uL RBC (4.7-6.1) M/uL Hgb (14.0-18.0) g/dL Hct (42-52) % MCV (80-100) fL MCH (25-34) pg MCHC (32-36) g/dL RDW Std Deviation (36.4-46.3) fL RDW Coeff of Selin (11.5-14.5) % Plt Count (130-400) K/uL MPV (7.4-10.4) fL Immature Gran % (Auto) % Neut % (Auto) % Lymph % (Auto) % [place] % (Auto) % Eos % (Auto) % Baso % (Auto) % Neut # (Auto) (1.4-6.5) K/uL Lymph # (Auto) (1.2-3.4) K/uL [place] # (Auto) (0.11-0.59) K/uL Eos # (Auto) (0-0.5) K/uL Baso # (Auto) (0-0.2) K/uL Immature Gran # (Auto) (0.00-0.02) K/uL Polychromasia APTT (21.0-31.0) Seconds PTT Ratio ABG pH (7.35-7.45) ABG pCO2 (35-46) mmHg ABG pO2 (80-95) mmHg ABG HCO3 (19-24) mmol/L ABG O2 Saturation (90-95) % ABG Base Excess (-9-1.8) mEq/L Bandar Test (Pos) Barometric Pressure mm/Hg Oxygen Given Sodium (136-145) mmol/L Potassium (3.5-5.1) mmol/L Chloride (98-107) mmol/L Carbon Dioxide (21-32) mmol/L Anion Gap (3-11) BUN (7-18) mg/dl Creatinine (0.6-1.4) mg/dl Est Cr Clr Drug Dosing Est GFR ( Amer) ml/min Est GFR (Non-Af Amer) ml/min BUN/Creatinine Ratio (10-20) Glucose (70-99) mg/dl Lactate 0.4 (0.4-2.0) mmol/L Calcium (8.5-10.1) mg/dl Magnesium (1.8-2.4) mg/dl Total Bilirubin (0.2-1) mg/dl AST (15-37) U/L ALT (12-78) U/L Alkaline Phosphatase (45-117) U/L Troponin I (0-0.045) ng/ml NT-Pro-B Natriuret Pep (0-450) pg/ml Total Protein (6.4-8.2) gm/dl Albumin (3.4-5.0) gm/dl Globulin (2.5-4.0) gm/dl Albumin/Globulin Ratio (0.9-2) Procalcitonin (0-0.5) ng/ml COVID-19 Eval Order SARS-CoV-2, RNA, NAAT NEGATIVE (NEGATIVE) Blood Type O Positive Antibody Screen NEGATIVE 10/13/20 10/13/20 10/13/20 Range/Units 20:19 20:19 20:19 WBC (4.8-10.8) K/uL RBC (4.7-6.1) M/uL Hgb (14.0-18.0) g/dL Hct (42-52) % MCV (80-100) fL MCH (25-34) pg MCHC (32-36) g/dL RDW Std Deviation (36.4-46.3) fL RDW Coeff of Selin (11.5-14.5) % Plt Count (130-400) K/uL MPV (7.4-10.4) fL Immature Gran % (Auto) % Neut % (Auto) % Lymph % (Auto) % [place] % (Auto) % Eos % (Auto) % Baso % (Auto) % Neut # (Auto) (1.4-6.5) K/uL Lymph # (Auto) (1.2-3.4) K/uL [place] # (Auto) (0.11-0.59) K/uL Eos # (Auto) (0-0.5) K/uL Baso # (Auto) (0-0.2) K/uL Immature Gran # (Auto) (0.00-0.02) K/uL Polychromasia APTT (21.0-31.0) Seconds PTT Ratio ABG pH 7.47 H (7.35-7.45) ABG pCO2 47 H (35-46) mmHg ABG pO2 138 H (80-95) mmHg ABG HCO3 34 H (19-24) mmol/L ABG O2 Saturation 99.0 H (90-95) % ABG Base Excess 9.1 H (-9-1.8) mEq/L Bandar Test Pos (Pos) Barometric Pressure 741.8 mm/Hg Oxygen Given 10 Sodium (136-145) mmol/L Potassium (3.5-5.1) mmol/L Chloride (98-107) mmol/L Carbon Dioxide (21-32) mmol/L Anion Gap (3-11) BUN (7-18) mg/dl Creatinine (0.6-1.4) mg/dl Est Cr Clr Drug Dosing Est GFR ( Amer) ml/min Est GFR (Non-Af Amer) ml/min BUN/Creatinine Ratio (10-20) Glucose (70-99) mg/dl Lactate (0.4-2.0) mmol/L Calcium (8.5-10.1) mg/dl Magnesium (1.8-2.4) mg/dl Total Bilirubin (0.2-1) mg/dl AST (15-37) U/L ALT (12-78) U/L Alkaline Phosphatase (45-117) U/L Troponin I 0.080 H* (0-0.045) ng/ml NT-Pro-B Natriuret Pep (0-450) pg/ml Total Protein (6.4-8.2) gm/dl Albumin (3.4-5.0) gm/dl Globulin (2.5-4.0) gm/dl Albumin/Globulin Ratio (0.9-2) Procalcitonin 0.85 H (0-0.5) ng/ml COVID-19 Eval Order SARS-CoV-2, RNA, NAAT (NEGATIVE) Blood Type Antibody Screen 10/13/20 Range/Units 20:19 WBC (4.8-10.8) K/uL RBC (4.7-6.1) M/uL Hgb (14.0-18.0) g/dL Hct (42-52) % MCV (80-100) fL MCH (25-34) pg MCHC (32-36) g/dL RDW Std Deviation (36.4-46.3) fL RDW Coeff of Selin (11.5-14.5) % Plt Count (130-400) K/uL MPV (7.4-10.4) fL Immature Gran % (Auto) % Neut % (Auto) % Lymph % (Auto) % [place] % (Auto) % Eos % (Auto) % Baso % (Auto) % Neut # (Auto) (1.4-6.5) K/uL Lymph # (Auto) (1.2-3.4) K/uL [place] # (Auto) (0.11-0.59) K/uL Eos # (Auto) (0-0.5) K/uL Baso # (Auto) (0-0.2) K/uL Immature Gran # (Auto) (0.00-0.02) K/uL Polychromasia APTT 23.2 (21.0-31.0) Seconds PTT Ratio 0.9 ABG pH (7.35-7.45) ABG pCO2 (35-46) mmHg ABG pO2 (80-95) mmHg ABG HCO3 (19-24) mmol/L ABG O2 Saturation (90-95) % ABG Base Excess (-9-1.8) mEq/L Bandar Test (Pos) Barometric Pressure mm/Hg Oxygen Given Sodium (136-145) mmol/L Potassium (3.5-5.1) mmol/L Chloride (98-107) mmol/L Carbon Dioxide (21-32) mmol/L Anion Gap (3-11) BUN (7-18) mg/dl Creatinine (0.6-1.4) mg/dl Est Cr Clr Drug Dosing Est GFR ( Amer) ml/min Est GFR (Non-Af Amer) ml/min BUN/Creatinine Ratio (10-20) Glucose (70-99) mg/dl Lactate (0.4-2.0) mmol/L Calcium (8.5-10.1) mg/dl Magnesium (1.8-2.4) mg/dl Total Bilirubin (0.2-1) mg/dl AST (15-37) U/L ALT (12-78) U/L Alkaline Phosphatase (45-117) U/L Troponin I (0-0.045) ng/ml NT-Pro-B Natriuret Pep (0-450) pg/ml Total Protein (6.4-8.2) gm/dl Albumin (3.4-5.0) gm/dl Globulin (2.5-4.0) gm/dl Albumin/Globulin Ratio (0.9-2) Procalcitonin (0-0.5) ng/ml COVID-19 Eval Order SARS-CoV-2, RNA, NAAT (NEGATIVE) Blood Type Antibody Screen Imaging Data Radiologist's Impression: Chest X-Ray 10/13/20 16:18 XR chest 1V portable HISTORY: 40 years-old Male Dyspnea acute shortness of breath COMPARISON: Chest radiograph 08/19/2020 TECHNIQUE: Portable AP view of the chest FINDINGS: Cardiac silhouette is enlarged. Pulmonary vascular congestion with reticular interstitial opacities. No pneumothorax, pleural effusion or lobar airspace consolidation. Bones appear grossly intact. IMPRESSION: Interstitial opacities suggestive of mild pulmonary edema. Interstitial pneumonitis could appear similarly. ACT 112: Negative or not required by law. The above report was generated using voice recognition software. It may contain grammatical, syntax or spelling errors. Electronically signed by: Jimmy Hernandez M.D. 10/13/2020 5:17 PM Chest X-Ray 10/13/20 16:18 XR chest 1V portable HISTORY: 40 years-old Male Dyspnea acute shortness of breath COMPARISON: Chest radiograph 08/19/2020 TECHNIQUE: Portable AP view of the chest FINDINGS: Cardiac silhouette is enlarged. Pulmonary vascular congestion with reticular interstitial opacities. No pneumothorax, pleural effusion or lobar airspace consolidation. Bones appear grossly intact. IMPRESSION: Interstitial opacities suggestive of mild pulmonary edema. Interstitial pneumonitis could appear similarly. ACT 112: Negative or not required by law. The above report was generated using voice recognition software. It may contain grammatical, syntax or spelling errors. Electronically signed by: Jimmy Hernandez M.D. 10/13/2020 5:17 PM Venous Doppler Study 10/13/20 19:08 BILATERAL LOWER EXTREMITY VENOUS DOPPLER HISTORY: Hypoxia. Assess for DVT. COMPARISON STUDY: None. FINDINGS: There is normal compressibility, flow, and augmentation within the bilateral lower extremity deep venous systems. IMPRESSION: No DVT within the right or left lower extremity. ACT 112: Negative or not required by law. Electronically signed by: Arley Garcia M.D. 10/13/2020 11:[address] 10/13/20 19:12 CT chest diagnostic wo con CT DOSE: 687.76 mGy.cm HISTORY: sarcoid lungs, hypoxia, ESRD, ?CHF TECHNIQUE: Multiaxial CT images of the chest were performed without contrast. A dose lowering technique was utilized adhering to the principles of ALARA. COMPARISON: Chest CTA 08/15/2011. FINDINGS: No pneumothorax. The central airways are patent. There is diffuse interlobular septal thickening with small bilateral pleural effusions and mild cardiomegaly. This suggests interstitial pulmonary edema. There are few scattered punctate calcified granulomas. Mild diffuse groundglass airspace opacities within the lungs with more focal airspace opacities within the base of the right lower lobe. A few small scattered nodular densities within the lungs. Dominant nodules seen within the right lung apex measure 6 mm. Additional small nodular densities seen within the angular. Diffuse bronchial wall thickening. No suspicious lytic or blastic osseous lesions. Limited views of the upper abdomen demonstrate a normal liver, spleen, and adrenal glands. Normal caliber esophagus. There is mild mediastinal and bilateral hilar lymphadenopathy. Do minant subcarinal lymph node measures 3.2 x 1.8 cm. Normal caliber esophagus. The heart is mildly enlarged. No pericardial effusion. IMPRESSION: 1. Diffuse interlobular septal thickening with small bilateral pleural effusions and mild cardiomegaly. This likely represents interstitial pulmonary edema. 2. There are near diffuse groundglass airspace opacities most pronounced within the base of the right lower lobe. This likely represents an alveolar component of the pulmonary edema. A superimposed pneumonia cannot be excluded. 3. There are few small scattered nodular densities within the lungs measuring up to 6 mm. These are nonspecific but may correspond to the patient's history of sarcoidosis. A [address] follow-up is recommended to ensure stability/resolution. 4. Mild mediastinal and bilateral hilar lymphadenopathy. This can be seen in the setting of sarcoidosis or chronic pulmonary edema. This bears watching on future examinations to ensure stability. ACT 112: Negative or not required by law. Electronically signed by: Arley Garcia M.D. 10/13/2020 10:41 PM ECG Data Attestation: I personally reviewed and interpreted this ECG as follows: Indication: + SOB/dyspnea Rate (beats per minute): 78 Rhythm: + normal sinus ECG Intervals/blocks: + Prolonged QT (478) ECG ST segments: + Normal ST segments ECG Findings: + Other (left atrial enlargement); no PACs and no PVCs Comparison ECG Date: from (3/27/21) Change: no significant change Blood Pressure Blood Pressure Findings: Elevated blood pressure Blood Pressure Disposition: further management by hospitalist MDM Narrative This patient was did appear to be in no significant distress. IV access was obtained and laboratory work was drawn. An order for cardiac monitoring was placed and the patient is noted to be in a new sinus rhythm 82 bpm. Patient's oxygen saturations were marginal at best on an oxygen mask at 4 L he was just at 90%. Patient refused the nasal cannula stating it was not comfortable. I attempted to wean the patient down to 2 L via oxygen mask without success. Patient's chest X ray reviewed notes pulmonary edema. Covid is negative as an a dmit ID, patient refused the cepheid. I did speak with Dr. Thomson of nephrology who was able to review the patient's records in [facility]. She has recommended an echocardiogram, noncontrast chest CT as the patient does still make some urine as well as bilateral extremity Dopplers. Patient may require additional this for fluid removal if symptoms persist. He is noted to be hypokalemic however this may be related to the fluid and electrolyte shifts from recent dialysis. Patient was eating crackers and peanut butter and had an acute hypoxic episode which may have been related to lack of oxygen supplementation or an aspiration event. Nonetheless the patient was switched to a nonrebreather for a short period of time and recovered without difficulty. Case was discussed with Dr. Lagos of the hospitalist service who has agreed to evaluate the patient for admission and further management. Impression & Plan Pulmonary edema, Encounter for hemodialysis for ESRD Discharge Plan Visit Data Chief Complaint: Shortness of Breath/Dyspnea Stated Complaint: LOW OXYGEN,AT LOWEST 76 ED Provider: Bree Waddell Discharge Problem: Pulmonary edema, Encounter for hemodialysis for ESRD Patient Disposition: Admitted As Inpatient Discharge Instructions Interventions: ED Discharge Assessment Last Done: 10/13/20 22:12 Discharge Problem: Pulmonary edema Qualifiers: Chronicity: acute Qualified Code(s): J81.0 - Acute pulmonary edema
--- NOTE | 2020-10-13 22:43 | CT Scan Report ---
CT chest diagnostic wo con CT DOSE: 687.76 mGy.cm HISTORY: sarcoid lungs, hypoxia, ESRD, ?CHF TECHNIQUE: Multiaxial CT images of the chest were performed without contrast. A dose lowering techni que was utilized adhering to the principles of ALARA. COMPARISON: Chest CTA 08/15/2011. FINDINGS: No pneumothorax. The central airways are patent. There is diffuse interlobular septal thick ening with small bilateral pleural effusions and mild cardiomegaly. This suggests interstitial pulmon jose edema. There are few scattered punctate calcified granulomas. Mild diffuse groundglass airspace o pacities within the lungs with more focal airspace opacities within the base of the right lower lobe. A few small scattered nodular densities within the lungs. Dominant nodules seen within the right glen g apex measure 6 mm. Additional small nodular densities seen within the angular. Diffuse bronchial wa ll thickening. No suspicious lytic or blastic osseous lesions. Limited views of the upper abdomen dem onstrate a normal liver, spleen, and adrenal glands. Normal caliber esophagus. There is mild mediasti nal and bilateral hilar lymphadenopathy. Dominant subcarinal lymph node measures 3.2 x 1.8 cm. Normal caliber esophagus. The heart is mildly enlarged. No pericardial effusion. IMPRESSION: 1. Diffuse interlobular septal thickening with small bilateral pleural effusions and mild cardiomegal y. This likely represents interstitial pulmonary edema. 2. There are near diffuse groundglass airspace opacities most pronounced within the base of the right lower lobe. This likely represents an alveolar component of the pulmonary edema. A superimposed pneu monia cannot be excluded. 3. There are few small scattered nodular densities within the lungs measuring up to 6 mm. These are n onspecific but may correspond to the patient's history of sarcoidosis. A [address] follow-up i s recommended to ensure stability/resolution. 4. Mild mediastinal and bilateral hilar lymphadenopathy. This can be seen in the setting of sarcoidos is or chronic pulmonary edema. This bears watching on future examinations to ensure stability. ACT 112: Negative or not required by law. Electronically signed by: Arley Garcia M.D. 10/13/2020 10:41 PM
--- NOTE | 2020-10-13 23:04 | Ultrasound Report ---
BILATERAL LOWER EXTREMITY VENOUS DOPPLER HISTORY: Hypoxia. Assess for DVT. COMPARISON STUDY: None. FINDINGS: There is normal compressibility, flow, and augmentation within the bilateral lower extremit y deep venous systems. IMPRESSION: No DVT within the right or left lower extremity. ACT 112: Negative or not required by law. Electronically signed by: Arley Garcia M.D. 10/13/2020 11:02 PM
[2020-10-13] MEDS ORDERED: CARBOHYDRATES FOR HYPOGLYCEMIA PO PRN (23:25)
[2020-10-13] MEDS ORDERED: ACETAMINOPHEN 325 MG TAB PO PRN (23:25)
[2020-10-13] MEDS ORDERED: NITROGLYCERIN SL 0.4 MG/TAB TAB SL PRN (23:25)
[2020-10-13] MEDS ORDERED: GLUCOSE 10 TABS/TUBE PO PRN (23:25)
[2020-10-13] MEDS ORDERED: GLUCOSE 40% GEL 15 GM TUBE PO PRN (23:25)
[2020-10-13] MEDS ORDERED: GLUCAGON FOR INJ 1 MG VIAL SQ PRN (23:25)
[2020-10-13] MEDS ORDERED: PROMETHAZINE HCL 12.5 MG in SODIUM CHLORIDE 0.9% 50 ML IV PRN (23:25)
[2020-10-13] MEDS ORDERED: DEXTROSE 50% 50 ML SYRINGE IV PRN (23:25)
[2020-10-13] MEDS ORDERED: oxyCODONE HCL IR 5 MG TAB (IMMEDIATE RELEASE) PO PRN (23:25)
[2020-10-14] MEDS ORDERED: INSULIN GLARGINE SOLOSTAR 100 UNITS/ML 3 ML PEN SC STA (00:02)
[2020-10-14] MEDS: hydrALAZINE HCL 25 MG TAB PO SCH ×3 (00:36→20:45)
[2020-10-14] MEDS: amLODIPine BESYLATE 5 MG TAB PO SCH ×2 (00:36→20:48)
[2020-10-14] MEDS: lisinopril 40 MG TAB PO SCH ×2 (00:37→20:49)
[2020-10-14] MEDS: METOPROLOL SUCC 50MG EXT REL TAB PO SCH ×3 (00:38→20:49)
[2020-10-14] MEDS: INSULIN ASPART 100 UNITS/ML 3 ML PEN SC SCH ×6 (00:45→20:52)
[2020-10-14] MEDS ORDERED: XOPENEX/ATROVENT 1.25mg/0.5MG NEB COMBO NEB SCH (01:00)
[2020-10-14] MEDS: IPRATROPIUM BROMIDE NEB SOLN 0.02% 2.5 ML VIAL INH SCH ×4 (01:16→19:01)
[2020-10-14] MEDS: LEVALBUTEROL 1.25MG/0.5ML NEB INH SCH ×4 (01:16→19:01)
[2020-10-14] MEDS ORDERED: CALCIUM ACETATE 667 MG CAP/TAB PO PRN (01:21)
[2020-10-14] MEDS ORDERED: Augmentin: PHARMACY CONSULT IN PROGRESS PRN (01:24)
[2020-10-14 06:56] LABS: BUN Creatinine Ratio 4.4 (10-20); Calcium 8.9 mg/dl (8.5-10.1); Creatinine Clr Calc Pharmacy 23.3 ml/min; Est GFR (African American) 15.2 ml/min; Est GFR (Non-African American) 13.1 ml/min; Potassium 4.1 mmol/L (3.5-5.1)
[2020-10-14 07:09] LABS: Beta-Hydroxybutyrate 9.34 mg/dl (0.2-2.81)
[2020-10-14 07:27] LABS: Troponin I 0.053 ng/ml (0-0.045)
[2020-10-14] MEDS ORDERED: PHARMACY GLYCEMIC MGMT CONSULT PRN (07:51)
[2020-10-14] MEDS: CALCIUM ACETATE 667 MG CAP/TAB PO SCH ×3 (07:59→16:06)
[2020-10-14] MEDS ORDERED: AMOXICILLIN/CLAVULANATE 500 MG TAB PO SCH ×3 (08:00→14:00)
[2020-10-14] MEDS: TORSEMIDE 100 MG TAB PO SCH (08:00)
[2020-10-14] MEDS: NEPHROCAPS PO SCH (08:01)
[2020-10-14] MEDS: ATORVASTATIN 40 MG TAB PO SCH (08:02)
[2020-10-14] MEDS: CALCIUM CARBONATE 500 MG CHEWABLE TAB PO SCH (08:02)
[2020-10-14 08:43] LABS: BUN Creatinine Ratio 4.2 (10-20); Calcium 9.1 mg/dl (8.5-10.1); Creatinine Clr Calc Pharmacy 21.9 ml/min; Est GFR (Non-African American) 12.1 ml/min; Potassium 4.3 mmol/L (3.5-5.1)
[2020-10-14 08:54] LABS: Beta-Hydroxybutyrate 15.58 mg/dl (0.2-2.81)
[2020-10-14] MEDS ORDERED: HEPARIN SOD (PORCINE) 1000 UNIT/ML IV ONE (08:57)
[2020-10-14] MEDS ORDERED: SODIUM CHLORIDE 0.9% 1000ML 1,000 ML IV PRN (08:57)
[2020-10-14 08:58] LABS: Basophils # (auto) 0.03 K/uL (0-0.2); Basophils % (auto) 0.3 %; Eosinophils # (auto) 0.03 K/uL (0-0.5); Eosinophils % (auto) 0.3 %; Hematocrit (blood only) 23.1 % (42-52); Hemoglobin 7.6 g/dL (14.0-18.0); Immature Granulocytes # (auto) 0.09 K/uL (0.00-0.02); Immature Granulocytes % (auto) 0.9 %; Lymphocytes # (auto) 0.49 K/uL (1.2-3.4); Lymphocytes % (auto) 4.8 %; Mean Corpuscular Hemoglobin 30.4 pg (25-34); Mean Corpuscular Hgb Conc 32.9 g/dL (32-36); Mean Corpuscular Volume 92.4 fL (80-100); Mean Platelet Volume 9.7 fL (7.4-10.4); Monocytes # (auto) 0.17 K/uL (0.11-0.59); Monocytes % (auto) 1.7 %; Neutrophils # (auto) 9.37 K/uL (1.4-6.5); Platelet Count 240 K/uL (130-400); RDW Standard Deviation 54.2 fL (36.4-46.3); White Blood Count 10.18 K/uL (4.8-10.8)
[2020-10-14] MEDS ORDERED: predniSONE 20 MG TAB PO SCH (09:00)
[2020-10-14] MEDS ORDERED: INSULIN GLARGINE SOLOSTAR 100 UNITS/ML 3 ML PEN SC SCH (09:00)
[2020-10-14] MEDS ORDERED: CALCIUM CARBONATE 500 MG CHEWABLE TAB PO SCH (09:00)
[2020-10-14] MEDS ORDERED: EPOETIN ALFA 20,000 UNITS/ML VIAL IV SCH (09:30)
[2020-10-14 09:59] LABS: Basophilic Stippling 1+
[2020-10-14] MEDS: HEPARIN SOD (PORCINE) 1000 UNIT/ML IV SCH (10:11)
[2020-10-14] MEDS ORDERED: LORazepam 1 MG TAB PO STA (10:16)
[2020-10-14] MEDS ORDERED: INSULIN HUMAN REGULAR PER UNIT 10 UNITS in SYRINGE 9.9 ML IV ONE (11:30)
--- NOTE | 2020-10-14 11:43 | Nephrology Consultation ---
Date of Consultation October 14, 2020 Assessment & Plan (1) Respiratory failure, acute and chronic: likely strong if not primary role for volume overload: Frequent dialysis and probe of target weight -ensure outpt pulm f/u ([place]/ [place] [facility] [place] today; eval for repeat dialysis tomorrow -pulm eval noted > no indication for steroids or bronch or abtx at this time Present on Admission?: Yes (2) End stage renal disease: on MWF HD Via AVF; cont same and extra txs to whittle target wt. Chemistr ies currently acceptable. Continue outpatient binders and dialysis diet. Added fluid limit 1.5L; likely could stop torsemide as well Present on Admission?: Yes (3) Anemia of chronic disease: marked anemia > giving aggressive epo dosing with HD; continue auryxia which will improve iron stores -monitor daily; transfuse leuko poor (potential txplt candidate) if <7 Present on Admission?: Yes History of Present Illness Reason for Consultation: ESRD pt admitted with hypoxia Requesting Physician: Dr Tam Attending Physician: Suresh Pathak MD History of Present Illness 40-year-old male whom I am asked to evaluate for dialysis needs after he was admitted overnight to manage hypoxia. He dialyzes under my care Friday at [facility] and was sent to ER after dialysis for management of ongoing hypoxia. His sats on presentation for dialysis yesterday were in the low 80s on room air; improved to mid to low 90s on 2 LNC; he had no home 02 arranged though were were able to get that set up at HD. We opted for eval in ER however d/t ongoing malaise, dyspnea. He had 1.6 L fluid removed at dialysis yesterday. He often has large interdialytic wt gain/fluid removal in the 3-4 kg range though lately more in the 1.5 kg range. He has high blood pressure at beginning and end of txs often but often has intradialytic hypotension and severe cramping. PMH includes ESRD on HD via AVF, chronic HF w/ mildly reduced EF 45% nonischemic, chronic hypoxic respiratory failure needing 1 L oxygen with exertion (but as above has not picked up), sarcoidosis, DM, chronic cough and hemoptysis, obesity. He was [facility] in July for respiratory failure, volume overload >>mildly reduced EF noted at that time along with reports of hemoptysis; cardiac cath w/ minimal diffuse luminal irregularities. This AM he feels slightly improved; ongoing cough w/ occasional frothy sputum, occasional hemoptysis; no n/v/d, no chest pain or palpitations; no edema. Allergies Allergy/AdvReac Type Severity Reaction Status Date / Time No Known Allergies Allergy Unknown Verified 10/13/20 18:20 Home Medications Medication Instructions Recorded Confirmed Type Lantus Solostar U-100 Insulin 56 unit SUBCUT HS 05/24/19 10/13/20 History amlodipine 10 mg PO HS 06/11/19 10/13/20 History calcium acetate(phosphat bind) 667 mg PO UD 06/11/19 10/13/20 History lisinopril 40 mg PO HS 06/11/19 10/13/20 History Myrna-Bello 1 tab PO DAILY 02/03/20 10/13/20 History calcium carbonate [Tums] 200 mg PO DAILY 02/03/20 10/13/20 History hydralazine 25 mg PO BID 02/03/20 10/13/20 History albuterol sulfate 2 puff INHALATION Q6 PRN 10/13/20 10/13/20 History atorvastatin 40 mg PO DAILY 10/13/20 10/13/20 History ferric citrate [Auryxia] 1 tab PO TIDM 10/13/20 10/13/20 History insulin aspart U-100 [Novolog 16 unit SUBCUT AC 10/13/20 10/13/20 History Flexpen U-100 Insulin] lorazepam 1 mg PO UD 10/13/20 10/13/20 History metoprolol succinate 50 mg PO BID 10/13/20 10/13/20 History torsemide 100 mg PO DAILY 10/13/20 10/13/20 History Patient History Medical History (Updated 10/14/20 @ 12:26 by Nicki Thomson MD, PhD) A-V fistula right Anemia Chronic respiratory failure with hypoxia Diabetes IDDM (Type 1 per records) Dyslipidemia End stage renal disease diaylsis - M,W,F ([facility], [place]) Heart failure with reduced ejection fraction Hypertension Obesity Sarcoidosis per records Seizure disorder remote hx (2007) in setting of hypoglycemia (?ETOH related per records), no issues since Surgical History History of vascular access device permacath insertion Hx of biopsy kidney bx PONV (postoperative nausea and vomiting) Status post creation of arteriovenous fistula right: 07/15/17: MAC sedation at [facility] Family History (Updated 10/14/20 @ 12:19 by Nicki Thomson MD, PhD) Father Hypertension Social History Smoking Status: Unknown if ever smoked Second Hand Exposure: No; Hx Alcohol Use: No Hx Substance Use: No Preferred Language: Hungarian Communication Ability: Effective Nickel Operator Required: No Beliefs That Will Affect Care: None Current Living Situation: Other Current Living Situation Comment: two story house with two roomates Other Information That Helps Us Care for You: No Feels Safe at Home: Yes Safety Concerns: Feels Safe At This Time Assistive Devices: Glasses and Oxygen - Continuous Review of Systems Review of Systems: All systems reviewed & are unremarkable except as noted in HPI & below Physical Exam Constitutional: well developed and well nourished; no acute distress Eyes: EOM intact bilaterally ENMT: Ears: no external ear abnormality Nose: no external nose abnormality Mouth: + dry oral mucous membranes Neck: no nuchal rigidity Respiratory: normal respiratory effort and + cough (frequent nonproductive w/ deep inspiration) Auscultation: lungs clear to auscultation bilaterally and + diminished lung sounds Cardiovascular: Rate/Rhythm: regular rate and regular rhythm Extremities: + edema (at most trace) and + AV fistula (+ t/b) Gastrointestinal (Abdomen): Inspection/Auscultation: normal bowel sounds; abdomen not distended Percussion/Palpation: abdomen soft; abdomen nontender Musculoskeletal: Extremities: strength 5/5 throughout Skin: no rashes, warm and dry Neurologic: morocho, fluent speech, no tremor Psychiatric: Orientation: alert and oriented x 3 Speech: normal rate/rhythm/volume of speech Affect: + flat affect Results & Data ([facility]) Vital Signs (Past 12 Hours) Vital Signs Temp Pulse Pulse Pulse Resp BP BP 10/14/20 11:20 80 144/66 H 10/14/20 11:00 80 145/68 H 10/14/20 10:40 88 171/88 H 10/14/20 10:20 56 L 133/83 10/14/20 10:00 86 145/72 H 10/14/20 09:50 37 C 84 10/14/20 07:42 36.6 C 83 20 148/67 H 10/14/20 07:28 83 16 10/14/20 04:33 86 10/14/20 02:52 36.9 C 92 H 24 136/72 Pulse Ox 10/14/20 11:20 10/14/20 11:00 10/14/20 10:40 10/14/20 10:20 10/14/20 10:00 10/14/20 09:50 10/14/20 07:42 98 10/14/20 07:28 98 10/14/20 04:33 10/14/20 02:52 93 Laboratory Results 10/14/20 05:51 10/14/20 07:[address] chest non con 1. Diffuse interlobular septal thickening with small bilateral pleural effusions and mild cardiomegaly. This likely represents interstitial pulmonary edema. 2. There are near diffuse groundglass airspace opacities most pronounced within the base of the right lower lobe. This likely represents an alveolar component of the pulmonary edema. A superimposed pneumonia cannot be excluded. 3. There are few small scattered nodular densities within the lungs measuring up to 6 mm. These are nonspecific but may correspond to the patient's history of sarcoidosis. A [address] follow-up is recommended to ensure stability/resolution. 4. Mild mediastinal and bilateral hilar lymphadenopathy. This can be seen in the setting of sarcoidosis or chronic pulmonary edema. This bears watching on future examinations to ensure stability. venous dopplers negative BLE cxr IMPRESSION: Interstitial opacities suggestive of mild pulmonary edema. Interstitial pneumonitis could appear similarly. (1) Respiratory failure, acute and chronic Respiratory failure complication: hypoxia Qualified Code(s): J96.21 - Acute and chronic respiratory failure with hypoxia
--- NOTE | 2020-10-14 11:48 | Pulmonary Consultation ---
Date of Consultation October 14, 2020 Assessment & Plan (1) Respiratory failure, acute and chronic: (2) Abnormal CT scan of lung: (3) Mediastinal adenopathy: Impression: 40-year-old male with end-stage renal disease on dialysis admitted with hypoxemia. CT scan showed evidence of fluid overload and the patient is currently undergoing dialysis with target of 3 L to be removed. He denies any hemoptysis. He does have an outpatient evaluation ongoing at this point in time for his adenopathy and shortness of breath and hypoxemic respiratory failure. Recommendations: 1. Hypoxemic respiratory failure: Suspect this is related to fluid overload. We will see how he responds to fluid removal with dialysis. Continue oxygen titrated to keep saturations at or above 90%. 2. Mediastinal adenopathy: The differential is broad and well-documented in the patient's prior pulmonary evaluation at [facility] as well as in the radiology differential. Would not recommend bronchoscopy at this point in time. Would need to correlate his films with his prior films. His he is already established with pulmonary at [facility] would recommend that his current films to be forwarded to them for review at discharge and he can continue to follow-up with them. There is no indication for steroids currently. 3. Reported history of hemoptysis: This has resolved per the patient. Pulmonary vascular congestion could certainly be contributing to hemoptysis. Again no urgent intervention required. 4. Groundglass opacity at the lung base: This could represent focal pulmonary edema but cannot exclude an infectious etiology. The patient's procalcitonin is likely not very reliable in the setting of renal failure on dialysis. His white blood cell count is normal. He is not been febrile. I would favor holding antibiotics at this point time unless the patient should develop cough productive of purulent phlegm, fever, or significant leukocytosis. Management of the patient's other medical issues is deferred to the admitting service. If the patient's oxygenation improves and his symptoms are better with dialysis today, he can be dismissed from a pulmonary standpoint and follow-up with his outpatient pulmonary providers at [facility]. Feel free to contact us with additional questions History of Present Illness Attending Physician: Suresh Pathak MD History of Present Illness Asked by hospitalist to evaluate this patient admitted with hypoxemic respiratory failure and reported hemoptysis. History is obtained from discussion with the patient, discussion with the hospitalist, and reviewed electronic medical record. Patient is a 40-year-old male who is currently being evaluated by the outpatient pulmonary group at [facility]. There is some chart history of sarcoid although the patient states he is never had a lung biopsy and we do not have any records from his outpatient cosmetic sales consultant to review. He has end-stage renal disease and is on dialysis. He was just admitted to [facility] in July for fluid overload, elevated troponin, and hemoptysis. He underwent cardiac catheterization showing no abnormality. CT at that point time showed diffuse groundglass opacities reportedly with some mediastinal adenopathy. Bronchoscopy was not performed and hemoptysis was attributed to fluid overload. Patient was evaluated in the outpatient setting and found to be hypoxemic. There reportedly was a repeat CT scan performed which showed increasing mediasti nal adenopathy although I do not have that film available to review. They recommended a follow-up chest CT in November with pulmonary function testing. The patient reported continued shortness of breath and was evaluated in the emergency room. He was hypoxemic at dialysis which prompted return to the emergency room. Patient is seen undergoing dialysis currently. He denies fevers chills or night sweats. He does report some shortness of breath but denies any cough or sputum production and specifically denies any hemoptysis. Allergies Allergy/AdvReac Type Severity Reaction Status Date / Time No Known Allergies Allergy Unknown Verified 10/13/20 18:20 Home Medications Medication Instructions Recorded Confirmed Type Lantus Solostar U-100 Insulin 56 unit SUBCUT HS 05/24/19 10/13/20 History amlodipine 10 mg PO HS 06/11/19 10/13/20 History calcium acetate(phosphat bind) 667 mg PO UD 06/11/19 10/13/20 History lisinopril 40 mg PO HS 06/11/19 10/13/20 History Myrna-Bello 1 tab PO DAILY 02/03/20 10/13/20 History calcium carbonate [Tums] 200 mg PO DAILY 02/03/20 10/13/20 History hydralazine 25 mg PO BID 02/03/20 10/13/20 History albuterol sulfate 2 puff INHALATION Q6 PRN 10/13/20 10/13/20 History atorvastatin 40 mg PO DAILY 10/13/20 10/13/20 History ferric citrate [Auryxia] 1 tab PO TIDM 10/13/20 10/13/20 History insulin aspart U-100 [Novolog 16 unit SUBCUT AC 10/13/20 10/13/20 History Flexpen U-100 Insulin] lorazepam 1 mg PO UD 10/13/20 10/13/20 History metoprolol succinate 50 mg PO BID 10/13/20 10/13/20 History torsemide 100 mg PO DAILY 10/13/20 10/13/20 History Patient History Medical History (Updated 10/14/20 @ 11:43 by Berny Maurice MD) A-V fistula right Anemia Diabetes IDDM (Type 1 per records) Dyslipidemia End stage renal disease diaylsis - M,W,F ([facility], [place]) Hypertension Nephrotic syndrome Obesity Sarcoidosis per records Seizure disorder remote hx (2007) in setting of hypoglycemia (?ETOH related per records), no issues since Surgical History History of vascular access device permacath insertion Hx of biopsy kidney bx PONV (postoperative nausea and vomiting) Status post creation of arteriovenous fistula right: 07/15/17: MAC sedation at [facility] Social History Smoking Status: Unknown if ever smoked Second Hand Exposure: No; Hx Alcohol Use: No Hx Substance Use: No Preferred Language: Chilean Communication Ability: Effective Resistance Welding Machine Operator Required: No Beliefs That Will Affect Care: None Current Living Situation: Other Current Living Situation Comment: two story house with two roomates Other Information That Helps Us Care for You: No Feels Safe at Home: Yes Safety Concerns: Feels Safe At This Time Assistive Devices: Glasses and Oxygen - Continuous Review of Systems Review of Systems: See admission H&P - changes as noted above. Physical Exam Physical Exam: GENERAL: Comfortable, obese, minimal respiratory distress SKIN: Pallor, multiple skin tattoos, warm HEENT: Pale palpebral conjunctivae, no ptosis, dry buccal mucosa, O2 mask in place NECK : Supple, short neck, no tenderness CHEST : Decreased breath sounds, no tenderness HEART : RRR, no obvious murmurs ABDOMEN: Some distention, nontender RECTAL : Refused EXTREMITIES : Minimal LE swelling, no LE tenderness, no other conspicuous deformities noted NEUROLOGIC : Coherent, no facial asymmetry, no other gross focality Results & Data Results & Data ([facility]) Vital Signs (Past 12 Hours) Vital Signs Temp Pulse Pulse Pulse Resp BP BP 10/14/20 11:20 80 144/66 H 10/14/20 11:00 80 145/68 H 10/14/20 10:40 88 171/88 H 10/14/20 10:20 56 L 133/83 10/14/20 10:00 86 145/72 H 10/14/20 09:50 37 C 84 10/14/20 07:42 36.6 C 83 20 148/67 H 10/14/20 07:28 83 16 10/14/20 04:33 86 10/14/20 02:52 36.9 C 92 H 24 136/72 Pulse Ox 10/14/20 11:20 10/14/20 11:00 10/14/20 10:40 10/14/20 10:20 10/14/20 10:00 10/14/20 09:50 10/14/20 07:42 98 10/14/20 07:28 98 10/14/20 04:33 10/14/20 02:52 93 Laboratory Results 10/14/20 05:51 10/14/20 07:56 Troponin 0 0.053 BNP greater than 35,000 Beta hydroxybutyrate elevated at 15 Procalcitonin 0.5 Covid test negative Blood gas showed a pH 7.47 with a PCO2 of 47 and PaO2 of 138 Diagnostic Findings imaging indepnedently reviewed. Chest x-ray 10/13/2020 showed interstitial opacities suggestive of pulmonary edema. Duplex ultrasound of the lower extremity showed no evidence of DVT CT of the chest from 10/13/2020 demonstrated diffuse interlobular septal thickening with mild cardiomegaly and bilateral pleural effusions likely consistent with pulmonary venous hypertension. Patchy basilar groundglass opacities noted most prominently within the right lower lobe. Mild mediastinal and hilar adenopathy. Do not have prior films available for comparison PG Care Time/CCT Total # of Minutes Spent Total Time Spent with Patient: Total time spent is greater than 50% in coordination of care (as documented) at patient's floor/unit and/or counseling patient: Coding Level of Care Code 85646 Inpt Consult Level 4 Diagnoses Respiratory failure, acute and chronic J96.[address] scan of lung R91.8 Mediastinal adenopathy R59.0 Time Spent (min) 40
--- NOTE | 2020-10-14 13:58 | Pharmacy Report ---
Pharmacy Glycemic Short Note 2 - Date of Service October 14, 2020 - Glycemic Short BSG Results (Last 24 hours): 10/13/20 10/13/20 10/14/20 16:35 23:22 05:48 Glucose 105 H 310 H* POC Glucose 235 H 10/14/20 10/14/20 10/14/20 07:18 07:56 11:07 Glucose 329 H* POC Glucose 329 H* 361 H* 10/14/20 11:08 Glucose POC Glucose 330 H* OUTPATIENT ANTIDIABETIC REGIMEN: * Lantus 56 units HS * Novolog 16 units + correction with meals ASSESSMENT: * 40 y/o M admitted for acute respiratory failure. Patient with diabetes managed at home on both Lantus and Novolog insulins. * On admission last night, patient was ordered Lantus 25 units BID and he received 25 units at bedtime yesterday (this is more than 50% reduced from home HS dose). * This AM he received 25 units of Lantus. Fasting was elevated greater than 300 mg/dl most likely d/t reduced Lantus dose last night. * Pt's serum creatinine sam to above 5 mg/dl today AM and he received hemodialysis today. * Pre-lunch BSG still elevated above 300 mg/dl. One time dose of IV regular insulin 10 units was given at that time. * Novolog parameters were tightened to weight based stress of 3. * Hesitated to increase Lantus at this time since I expect BSG to trend down after higher dose of Novolog + IV insulin around noon and in the setting of dialysis. * Around 3 pm today, BSG is down to 59 mg/dl- hypoglycemic episode. Novolog parameters loosened at this time. * Lantus HS dose adjusted down based on BSG. PLAN FOR INPATIENT GLYCEMIC CONTROL: * Basal insulin * Lantus 25 units SQ BID (doses received last night and this AM). * Lantus HS dose scale tonight ordered based on BSG (see EMR for details). * Bolus insulin: tightened CF/CR * NovoLog per scale ACHS or Q6hrs while NPO * Goal Range: Low 110 mg/dL - High 140 mg/dL * Correction Factor: 20 mg/dL/unit * Nutritional / Prandial insulin per carb ratio of 1 unit per 7 grams CHO consumed PLAN FOR DISCHARGE: * TBD
--- NOTE | 2020-10-14 17:12 | Hospitalist Progress Note ---
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 Chronic respiratory failure on Home O2 1-2L NC -- HD today Nephro on board will monitor response to HD -- Pulm consulted recommend to d/c antibiotics, and Prednisone at this time outpatient work up for Sarcoidosis, Mediastinal LAD -- monitor closely continue Torsemide Hemoptysis -- seems to have resolved bronchscopy not recommended at this point per Pulm outpatient work up HTN, slight elevated -- continue Amlodipine, Lisinopril, Metoprolol Troponin elevation secondary to illness in the setting of abnormal kidney function Acute on chronic anemia, hemoglobin drop from baseline secondary to hemoptysis -- Hg 7.9 to 7.6 transfuse for < 7 aspirin on hold DM1, reasonable control as of recent hemoglobin A1c of 7.01 August 2020 -- Pharm Glyc Control hyperlipidemia on statin Rx past tobacco abuse DVT prophylaxis. SCDs Re: Hemoptysis Full code Disposition pending anticipate d/c home when medically stable plan of care discussed with patient in detail and at length all questions answered he is understanding, agreeable, comfortable with the plan of care Admission and Anticipated Discharge Date Admission Date: October 13, 2020 Subjective ff up for acute on chronic respiratory failure seen sitting up in bed, comfortable on oxymask not in distress states breathing is slightly improved has dry cough has occasional chills no hemoptysis today no chest pain, palpitations, dizziness, nausea no other symptoms Review of Systems Review of Systems: All systems reviewed & are unremarkable except as noted in Subjective Physical Exam Physical Exam: General- oriented x 3, not in distress, speaks in sentences with no effort or accessory muscle use Head- atraumatic Eyes- PERRL, EOMI, anicteric ENT- oropharynx clear Neck- supple, no JVD, no adenopathy, no thyromegaly; carotids +2/2, no bruits appreciated Lungs- mild rales at the bases Heart- normal rate, regular rhythm; no murmur, no gallop, no rub appreciated Abdomen- normal bowel sounds, nondistended, soft, nontender, no masses or hepatosplenomegaly Extremities- no pretibial edema, no calf tenderness; peripheral pulses intact Neuro- alert, oriented x 3; CN 2-12 grossly intact; motor 5/5 bilaterally;sensation 100% on all extremities; no other gross focal neurologic deficits Skin- warm & dry Results & Data Results & Data ([facility]) Vital Signs (Past 12 Hours) Vital Signs Temp Pulse Pulse Pulse Resp BP BP 10/14/20 15:46 37.0 C 85 20 119/62 10/14/20 14:22 37 C 84 166/91 H 10/14/20 14:00 85 145/95 H 10/14/20 13:40 85 127/100 10/14/20 13:20 90 120/93 10/14/20 13:00 85 159/91 H 10/14/20 12:40 81 142/69 H 10/14/20 12:20 81 160/87 H 10/14/20 12:00 78 164/85 H 10/14/20 11:40 85 159/72 H 10/14/20 11:20 80 144/66 H 10/14/20 11:00 80 145/68 H 10/14/20 10:40 88 171/88 H 10/14/20 10:20 56 L 133/83 10/14/20 10:00 86 145/72 H 10/14/20 09:50 37 C 84 10/14/20 07:42 36.6 C 83 20 148/67 H 10/14/20 07:28 83 16 Pulse Ox 10/14/20 15:46 96 10/14/20 14:22 10/14/20 14:00 10/14/20 13:40 10/14/20 13:20 10/14/20 13:00 10/14/20 12:40 10/14/20 12:20 10/14/20 12:00 10/14/20 11:40 10/14/20 11:20 10/14/20 11:00 10/14/20 10:40 10/14/20 10:20 10/14/20 10:00 10/14/20 09:50 10/14/20 07:42 98 10/14/20 07:28 98 all noted and reviewed including below Laboratory Results Laboratory Results - last 24 hr 10/13/20 10/13/20 10/13/20 16:35 16:35 16:39 WBC RBC Hgb Hct MCV MCH MCHC RDW Std Deviation RDW Coeff of Selin Plt Count MPV Immature Gran % (Auto) Neut % (Auto) Lymph % (Auto) Castro % (Auto) Eos % (Auto) Baso % (Auto) Neut # (Auto) Lymph # (Auto) Castro # (Auto) Eos # (Auto) Baso # (Auto) Immature Gran # (Auto) Polychromasia 1+ Basophilic Stippling APTT PTT Ratio ABG pH ABG pCO2 ABG pO2 ABG HCO3 ABG O2 Saturation ABG Base Excess Bandar Test Barometric Pressure Oxygen Given Sodium 141 Potassium 3.0 L Chloride 102 Carbon Dioxide 33 H Anion Gap 6.0 BUN 12 Creatinine 3.76 H Est Cr Clr Drug Dosing Not Reportable Est GFR ( Amer) 22.2 Est GFR (Non-Af Amer) 19.2 BUN/Creatinine Ratio 3.1 L Glucose 105 H POC Glucose Lactate Calcium 9.2 Magnesium 2.1 Total Bilirubin 0.8 AST 10 L ALT 25 Alkaline Phosphatase 93 Troponin I 0.076 H* NT-Pro-B Natriuret Pep > 23096 H Total Protein 6.6 Albumin 3.4 Globulin 3.2 Albumin/Globulin Ratio 1.1 Beta-Hydroxybutyric Acd Procalcitonin SARS-CoV-2, RNA, NAAT NEGATIVE Blood Type Antibody Screen 10/13/20 10/13/20 10/13/20 20:19 20:19 20:19 WBC RBC Hgb Hct MCV MCH MCHC RDW Std Deviation RDW Coeff of Selin Plt Count MPV Immature Gran % (Auto) Neut % (Auto) Lymph % (Auto) Castro % (Auto) Eos % (Auto) Baso % (Auto) Neut # (Auto) Lymph # (Auto) Castro # (Auto) Eos # (Auto) Baso # (Auto) Immature Gran # (Auto) Polychromasia Basophilic Stippling APTT PTT Ratio ABG pH ABG pCO2 ABG pO2 ABG HCO3 ABG O2 Saturation ABG Base Excess Bandar Test Barometric Pressure Oxygen Given Sodium Potassium Chloride Carbon Dioxide Anion Gap BUN Creatinine Est Cr Clr Drug Dosing Est GFR ( Amer) Est GFR (Non-Af Amer) BUN/Creatinine Ratio Glucose POC Glucose Lactate 0.4 Calcium Magnesium Total Bilirubin AST ALT Alkaline Phosphatase Troponin I 0.080 H* NT-Pro-B Natriuret Pep Total Protein Albumin Globulin Albumin/Globulin Ratio Beta-Hydroxybutyric Acd Procalcitonin SARS-CoV-2, RNA, NAAT Blood Type O Positive Antibody Screen NEGATIVE 10/13/20 10/13/20 10/13/20 20:19 20:19 20:19 WBC RBC Hgb Hct MCV MCH MCHC RDW Std Deviation RDW Coeff of Selin Plt Count MPV Immature Gran % (Auto) Neut % (Auto) Lymph % (Auto) Castro % (Auto) Eos % (Auto) Baso % (Auto) Neut # (Auto) Lymph # (Auto) Castro # (Auto) Eos # (Auto) Baso # (Auto) Immature Gran # (Auto) Polychromasia Basophilic Stippling APTT 23.2 PTT Ratio 0.9 ABG pH 7.47 H ABG pCO2 47 H ABG pO2 138 H ABG HCO3 34 H ABG O2 Saturation 99.0 H ABG Base Excess 9.1 H Bandar Test Pos Barometric Pressure 741.8 Oxygen Given 10 Sodium Potassium Chloride Carbon Dioxide Anion Gap BUN Creatinine Est Cr Clr Drug Dosing Est GFR ( Amer) Est GFR (Non-Af Amer) BUN/Creatinine Ratio Glucose POC Glucose Lactate Calcium Magnesium Total Bilirubin AST ALT Alkaline Phosphatase Troponin I NT-Pro-B Natriuret Pep Total Protein Albumin Globulin Albumin/Globulin Ratio Beta-Hydroxybutyric Acd Procalcitonin 0.85 H SARS-CoV-2, RNA, NAAT Blood Type Antibody Screen 10/13/20 10/14/20 10/14/20 23:22 05:48 05:51 WBC 10.18 RBC 2.50 L Hgb 7.6 L Hct 23.1 L MCV 92.4 MCH 30.4 MCHC 32.9 RDW Std Deviation 54.2 H RDW Coeff of Selin 16.0 H Plt Count 240 MPV 9.7 Immature Gran % (Auto) 0.9 Neut % (Auto) 92.0 Lymph % (Auto) 4.8 Castro % (Auto) 1.7 Eos % (Auto) 0.3 Baso % (Auto) 0.3 Neut # (Auto) 9.37 H Lymph # (Auto) 0.49 L Castro # (Auto) 0.17 Eos # (Auto) 0.03 Baso # (Auto) 0.03 Immature Gran # (Auto) 0.09 H Polychromasia Basophilic Stippling 1+ APTT PTT Ratio ABG pH ABG pCO2 ABG pO2 ABG HCO3 ABG O2 Saturation ABG Base Excess Bandar Test Barometric Pressure Oxygen Given Sodium 138 Potassium 4.1 D Chloride 100 Carbon Dioxide 31 Anion Gap 7.0 BUN 22 H D Creatinine 5.16 H* D Est Cr Clr Drug Dosing 23.3 Est GFR ( Amer) 15.2 Est GFR (Non-Af Amer) 13.1 BUN/Creatinine Ratio 4.4 L Glucose 310 H* POC Glucose 235 H Lactate Calcium 8.9 Magnesium Total Bilirubin AST ALT Alkaline Phosphatase Troponin I 0.053 H* NT-Pro-B Natriuret Pep Total Protein Albumin Globulin Albumin/Globulin Ratio Beta-Hydroxybutyric Acd 9.34 H Procalcitonin SARS-CoV-2, RNA, NAAT Blood Type Antibody Screen 10/14/20 10/14/20 10/14/20 07:18 07:56 11:07 WBC RBC Hgb Hct MCV MCH MCHC RDW Std Deviation RDW Coeff of Selin Plt Count MPV Immature Gran % (Auto) Neut % (Auto) Lymph % (Auto) Castro % (Auto) Eos % (Auto) Baso % (Auto) Neut # (Auto) Lymph # (Auto) Castro # (Auto) Eos # (Auto) Baso # (Auto) Immature Gran # (Auto) Polychromasia Basophilic Stippling APTT PTT Ratio ABG pH ABG pCO2 ABG pO2 ABG HCO3 ABG O2 Saturation ABG Base Excess Bandar Test Barometric Pressure Oxygen Given Sodium 134 L Potassium 4.3 Chloride 97 L Carbon Dioxide 28 Anion Gap 9.0 BUN 23 H Creatinine 5.50 H* D Est Cr Clr Drug Dosing 21.9 Est GFR ( Amer) 14.0 Est GFR (Non-Af Amer) 12.1 BUN/Creatinine Ratio 4.2 L Glucose 329 H* POC Glucose 329 H* 361 H* Lactate Calcium 9.1 Magnesium Total Bilirubin AST ALT Alkaline Phosphatase Troponin I NT-Pro-B Natriuret Pep Total Protein Albumin Globulin Albumin/Globulin Ratio Beta-Hydroxybutyric Acd 15.58 H Procalcitonin SARS-CoV-2, RNA, NAAT Blood Type Antibody Screen 10/14/20 10/14/20 10/14/20 11:08 15:18 15:20 WBC RBC Hgb Hct MCV MCH MCHC RDW Std Deviation RDW Coeff of Selin Plt Count MPV Immature Gran % (Auto) Neut % (Auto) Lymph % (Auto) Castro % (Auto) Eos % (Auto) Baso % (Auto) Neut # (Auto) Lymph # (Auto) Castro # (Auto) Eos # (Auto) Baso # (Auto) Immature Gran # (Auto) Polychromasia Basophilic Stippling APTT PTT Ratio ABG pH ABG pCO2 ABG pO2 ABG HCO3 ABG O2 Saturation ABG Base Excess Bandar Test Barometric Pressure Oxygen Given Sodium Potassium Chloride Carbon Dioxide Anion Gap BUN Creatinine Est Cr Clr Drug Dosing Est GFR ( Amer) Est GFR (Non-Af Amer) BUN/Creatinine Ratio Glucose POC Glucose 330 H* 59 L* 60 L* Lactate Calcium Magnesium Total Bilirubin AST ALT Alkaline Phosphatase Troponin I NT-Pro-B Natriuret Pep Total Protein Albumin Globulin Albumin/Globulin Ratio Beta-Hydroxybutyric Acd Procalcitonin SARS-CoV-2, RNA, NAAT Blood Type Antibody Screen 10/14/20 15:40 WBC RBC Hgb Hct MCV MCH MCHC RDW Std Deviation RDW Coeff of Selin Plt Count MPV Immature Gran % (Auto) Neut % (Auto) Lymph % (Auto) Castro % (Auto) Eos % (Auto) Baso % (Auto) Neut # (Auto) Lymph # (Auto) Castro # (Auto) Eos # (Auto) Baso # (Auto) Immature Gran # (Auto) Polychromasia Basophilic Stippling APTT PTT Ratio ABG pH ABG pCO2 ABG pO2 ABG HCO3 ABG O2 Saturation ABG Base Excess Bandar Test Barometric Pressure Oxygen Given Sodium Potassium Chloride Carbon Dioxide Anion Gap BUN Creatinine Est Cr Clr Drug Dosing Est GFR ( Amer) Est GFR (Non-Af Amer) BUN/Creatinine Ratio Glucose POC Glucose 112 H Lactate Calcium Magnesium Total Bilirubin AST ALT Alkaline Phosphatase Troponin I NT-Pro-B Natriuret Pep Total Protein Albumin Globulin Albumin/Globulin Ratio Beta-Hydroxybutyric Acd Procalcitonin SARS-CoV-2, RNA, NAAT Blood Type Antibody Screen (1) Respiratory failure, acute and chronic Respiratory failure complication: hypoxia Qualified Code(s): J96.21 - Acute and chronic respiratory failure with hypoxia
[2020-10-14] MEDS: INSULIN GLARGINE SOLOSTAR 100 UNITS/ML 3 ML PEN SC SCH (20:50)
--- NOTE | 2020-10-14 23:56 | Electrocardiogram Report ---
Test Reason : Blood Pressure : / mmHG Vent. Rate : 078 BPM Atrial Rate : 078 BPM P-R Int : 170 ms QRS Dur : 096 ms QT Int : 420 ms P-R-T Axes : 037 -08 048 degrees QTc Int : 478 ms Normal sinus rhythm Possible Left atrial enlargement Borderline ECG When compared with ECG of 19-AUG-2020 18:45, No significant change was found Confirmed by Raghu Oconnell ([id number]) on 10/14/2020 11:56:24 PM Referred By: REFERRED SELF Confirmed By:Raghu Oconnell
[2020-10-15] MEDS: INSULIN ASPART 100 UNITS/ML 3 ML PEN SC SCH ×6 (00:02→23:19)
[2020-10-15] MEDS: LEVALBUTEROL 1.25MG/0.5ML NEB INH SCH ×3 (00:26→07:03)
[2020-10-15] MEDS: IPRATROPIUM BROMIDE NEB SOLN 0.02% 2.5 ML VIAL INH SCH ×3 (00:26→07:03)
[2020-10-15] MEDS: TORSEMIDE 100 MG TAB PO SCH (08:47)
[2020-10-15] MEDS: ATORVASTATIN 40 MG TAB PO SCH (08:47)
[2020-10-15] MEDS: CALCIUM CARBONATE 500 MG CHEWABLE TAB PO SCH (08:48)
[2020-10-15] MEDS: NEPHROCAPS PO SCH (08:49)
[2020-10-15] MEDS: hydrALAZINE HCL 25 MG TAB PO SCH ×2 (08:49→20:10)
[2020-10-15] MEDS: CALCIUM ACETATE 667 MG CAP/TAB PO SCH ×3 (08:49→20:11)
[2020-10-15] MEDS: METOPROLOL SUCC 50MG EXT REL TAB PO SCH ×2 (08:50→20:10)
[2020-10-15 09:55] LABS: Hematocrit (blood only) 23.7 % (42-52); Hemoglobin 7.7 g/dL (14.0-18.0); Mean Corpuscular Hgb Conc 32.5 g/dL (32-36); Mean Corpuscular Volume 92.2 fL (80-100); Mean Platelet Volume 8.9 fL (7.4-10.4); Nucleated RBC # (auto) 0.04 K/uL (0-0); Nucleated RBC % (auto) 0.3 %; Platelet Count 220 K/uL (130-400); RDW Coefficient of Variation 16.5 % (11.5-14.5); RDW Standard Deviation 55.4 fL (36.4-46.3); Red Blood Count 2.57 M/uL (4.7-6.1)
[2020-10-15 10:13] LABS: Basophilic Stippling 1+; Basophils # (auto) 0.04 K/uL (0-0.2); Basophils % (auto) 0.3 %; Eosinophils # (auto) 0.21 K/uL (0-0.5); Eosinophils % (auto) 1.8 %; Immature Granulocytes # (auto) 0.18 K/uL (0.00-0.02); Immature Granulocytes % (auto) 1.6 %; Lymphocytes # (auto) 0.83 K/uL (1.2-3.4); Lymphocytes % (auto) 7.2 %; Monocytes # (auto) 0.36 K/uL (0.11-0.59); Monocytes % (auto) 3.1 %; Neutrophils # (auto) 9.88 K/uL (1.4-6.5)
[2020-10-15 10:24] LABS: BUN Creatinine Ratio 4.5 (10-20); Calcium 8.7 mg/dl (8.5-10.1); Est GFR (African American) 15.2 ml/min; Est GFR (Non-African American) 13.1 ml/min; Potassium 2.9 mmol/L (3.5-5.1)
--- NOTE | 2020-10-15 10:32 | Pharmacy Report ---
Pharmacy Glycemic Short Note 2 - Date of Service October 15, 2020 - Glycemic Short BSG Results (Last 24 hours): 10/14/20 10/14/20 10/14/20 11:07 11:08 15:18 POC Glucose 361 H* 330 H* 59 L* 10/14/20 10/14/20 10/14/20 15:20 15:40 20:42 POC Glucose 60 L* 112 H 316 H* 10/14/20 10/14/20 10/15/20 20:44 23:34 03:37 POC Glucose 321 H* 292 H 107 H 10/15/20 07:59 POC Glucose 168 H OUTPATIENT ANTIDIABETIC REGIMEN: * Lantus 56 units HS * Novolog 16 units + correction with meals ASSESSMENT: 10/15: * Patient received total 107 units of insulin yesterday; 51 units basal + 56 units bolus. * Fasting BSG today is unknown. Patient started eating breakfast while AM BSG was checked. * At ~ 4 AM today BSG was 107 mg/dl indicating good control. * Home Lantus dose is all taken at HS. In an effort to go back to home regimen, moved AM Lantus dose to noon today. Plan is to push dosing gradually back to HS. * To prevent hypoglycemia, loosened Novolog CF at lunch. Plan for patient to go to dialysis again today. 10/14: * 40 y/o M admitted for acute respiratory failure. Patient with diabetes managed at home on both Lantus and Novolog insulins. * On admission last night, patient was ordered Lantus 25 units BID and he received 25 units at bedtime yesterday (this is more than 50% reduced from home HS dose). * This AM he received 25 units of Lantus. Fasting was elevated greater than 300 mg/dl most likely d/t reduced Lantus dose last night. * Pt's serum creatinine sam to above 5 mg/dl today AM and he received hemodialysis today. * Pre-lunch BSG still elevated above 300 mg/dl. One time dose of IV regular insulin 10 units was given at that time. * Novolog parameters were tightened to weight based stress of 3. * Hesitated to increase Lantus at this time since I expect BSG to trend down after higher dose of Novolog + IV insulin around noon and in the setting of dialysis. * Around 3 pm today, BSG is down to 59 mg/dl- hypoglycemic episode. Novolog parameters loosened at this time. * Lantus HS dose adjusted down based on BSG. PLAN FOR INPATIENT GLYCEMIC CONTROL: * Basal insulin * Lantus 25 units SQ @1200 (pushing AM dose further out so all of Lantus can be given at HS to match home regimen). * Lantus HS dose scale tonight ordered based on BSG (see EMR for details). * Bolus insulin: loosened CF * NovoLog per scale ACHS or Q6hrs while NPO * Goal Range: Low 110 mg/dL - High 140 mg/dL * Correction Factor: 20 mg/dL/unit * Nutritional / Prandial insulin per carb ratio of 1 unit per 5 grams CHO consumed PLAN FOR DISCHARGE: * TBD
[2020-10-15 10:52] LABS: Beta-Hydroxybutyrate 1.96 mg/dl (0.2-2.81)
--- NOTE | 2020-10-15 10:52 | Pulmonology Progress Note ---
Date of Service October 15, 2020 Assessment & Plan (1) Respiratory failure, acute and chronic: Respiratory failure complication: hypoxia Qualified Code(s): J96.21 - Acute and chronic respiratory failure with hypoxia (2) Abnormal CT scan of lung: (3) Mediastinal adenopathy: Impression: 40-year-old male with end-stage renal disease on dialysis admitted with hypoxemia. CT scan showed evidence of fluid overload and the patient is currently undergoing dialysis with target of 3 L to be removed. He denies any hemoptysis. He does have an outpatient evaluation ongoing at this point in time for his adenopathy and shortness of breath and hypoxemic respiratory failure. Recommendations: 1. Hypoxemic/hypercarbic respiratory failure: Oxygen requirement is better with dialysis and fluid removal. I would agree with nephrology that I think his fluid status is likely contributing although the patient is convinced that this is not the etiology. Patient did have an elevated beta hydroxybutyrate on presentation. However his pH was alkalotic but he did have an increased CO2. Consideration for an outpatient sleep study to evaluate for nocturnal hypoventilation syndrome and potential nocturnal noninvasive positive pressure ventilation may be appropriate and again would be [facility] to the [facility]. 2. Mediastinal adenopathy: The differential is broad and well-documented in the patient's prior pulmonary evaluation at [facility] as well as in the radiology differential. Would not recommend bronchoscopy at this point in time. Would need to correlate his films with his prior films. His he is already established with pulmonary at [facility] would recommend that his current films to be forwarded to them for review at discharge and he can continue to follow-up with them. There is no indication for steroids currently. 3. Reported history of hemoptysis: This has resolved per the patient. Pulmonary vascular congestion could certainly be contributing to hemoptysis. Again no urgent intervention required. 4. Groundglass opacity at the lung base: This could represent focal pulmonary edema but cannot exclude an infectious etiology. The patient's procalcitonin is likely not very reliable in the setting of renal failure on dialysis. His white blood cell count is increased this morning but he did receive empiric steroids yesterday. He is not been febrile. I would favor holding antibiotics at this point time unless the patient should develop cough productive of purulent phlegm, fever, or significant leukocytosis. Management of the patient's other medical issues is deferred to the admitting service. Unclear if the patient would benefit from additional dialysis. Defer to nephrology. Outpatient pulmonary follow-up is recommended. Admission and Anticipated Discharge Date Admission Date: October 13, 2020 Subjective Patient is somewhat frustrated this morning. He states he feels exactly the same. He is concerned about his breathing. He does feel that he is wheezing. He is coughing. He does not feel any better after dialysis with fluid removal. He feels he is at or below his dry weight so is not convinced that fluid has anything to do with his respiratory complaints. Review of Systems Review of Systems: All systems reviewed & are unremarkable except as noted in HPI & below Physical Exam Constitutional: WD/WN, vitals as above no acute distress Neck: trachea midline, no thyromegaly Respiratory: normal respiratory effort, lungs clear to auscultation no respiratory distress and no labored breathing Auscultation: + crackles; no wheezes Cardiovascular: RRR, no murmur, no edema Gastrointestinal (Abdomen): normal bowel sounds, soft, nontender, no hepatosplenomegaly Musculoskeletal: Extremities: extremities normal to inspection Skin: no rashes, warm and dry Neurologic: Nonfocal exam Lymphatic: no cervical lymphadenopathy Results & Data Results & Data ([facility]) Vital Signs (Past 12 Hours) Vital Signs Temp Pulse Pulse Resp BP Pulse Ox 10/15/20 08:19 37.0 C 94 H 18 165/82 H 92 10/15/20 07:03 86 18 96 10/15/20 03:38 36.8 C 88 22 129/71 95 10/15/20 01:55 88 22 96 10/14/20 23:27 37.1 C 80 21 150/76 H 96 Laboratory Results 10/15/20 09:40 10/15/20 09:40 Diagnostic Findings No new imaging PG Care Time/CCT Total # of Minutes Spent Total Time Spent with Patient: Total time spent is greater than 50% in coordination of care (as documented) at patient's floor/unit and/or counseling patient: Coding Level of Care Code 59378 Subseq Hosp Care Lvl 3 Diagnoses Respiratory failure, acute and chronic J96.21 Respiratory failure complication: hypoxia Abnormal CT scan of lung R91.8 Mediastinal adenopathy R59.0
[2020-10-15] MEDS ORDERED: HEPARIN SOD (PORCINE) 1000 UNIT/ML IV ONE (11:33)
[2020-10-15] MEDS ORDERED: SODIUM CHLORIDE 0.9% 1000ML 1,000 ML IV PRN ×2 (11:33→21:27)
--- NOTE | 2020-10-15 11:33 | Nephrology Progress Note ---
Date of Service October 15, 2020 Assessment & Plan (1) Respiratory failure, acute and chronic: likely strong if not primary role for volume overload: Frequent dialysis and probe of target weight -ensure outpt pulm f/u (follows w/ Dr Lorri OLMSTEADG) -dialysis today shorter than usual tx 3 hrs and tomorrow plan another full tx > goal 2.5L off today -no indication for steroids or bronch or abtx at this time (2) End stage renal disease: on MWF HD Via [facility]; cont same and extra txs to whittle target wt. suspiciously low K as below. Continue outpatient binders and dialysis diet. cont fluid limit 1.5L; continue torsemide for now; reeval loop diuretic use as OP (3) Anemia of chronic disease: marked anemia > giving aggressive epo dosing with HD; continue auryxia which will improve iron stores -monitor daily; transfuse leuko poor (potential txplt candidate) if <7 -f/u pending t stn; could not find recent one on OP labs (4) Hypokalemia: K 2.9 today >> ? if relates to insulin dosing/BG issues; will recheck stat along w/ mag and run on 4K bath pending recheck results; dialysis nurse aware Present on Admission?: Yes Admission and Anticipated Discharge Date Admission Date: October 13, 2020 Subjective states he feels worse today than when he arrived; frustrated about ongoing fluid in lungs, cough, wheeze. no edema. chronic stable watery diarrhea. fired his nurse as I left room; frustrated about his bg. Review of Systems Review of Systems: All systems reviewed & are unremarkable except as noted in Subjective Physical Exam Constitutional: well developed and well nourished; no acute distress lying flat on VM 4L Eyes: EOM intact bilaterally ENMT: Ears: no external ear abnormality Nose: no external nose abnormality Mouth: + dry oral mucous membranes Neck: no nuchal rigidity Respiratory: normal respiratory effort and + cough (no cough in exam today) Auscultation: lungs clear to auscultation bilaterally and + diminished lung sounds Cardiovascular: Rate/Rhythm: regular rhythm and + tachycardic (in 90s) Extremities: + AV fistula (+ t/b); no edema Gastrointestinal (Abdomen): Inspection/Auscultation: normal bowel sounds; abdomen not distended Percussion/Palpation: abdomen soft; abdomen nontender Musculoskeletal: Extremities: strength 5/5 throughout Skin: no rashes, warm and dry Neurologic: morocho, fluent speech, no tremor Psychiatric: Orientation: alert and oriented x 3 Speech: normal r ate/rhythm/volume of speech Affect: + flat affect Results & Data ([facility]) Vital Signs (Past 12 Hours) Vital Signs Temp Pulse Pulse Resp BP Pulse Ox 10/15/20 08:19 37.0 C 94 H 18 165/82 H 92 10/15/20 07:03 86 18 96 10/15/20 03:38 36.8 C 88 22 129/71 95 10/15/20 01:55 88 22 96 10/14/20 23:27 37.1 C 80 21 150/76 H 96 Laboratory Results 10/15/20 09:40 10/15/20 09:40 (1) Respiratory failure, acute and chronic Respiratory failure complication: hypoxia Qualified Code(s): J96.21 - Acute and chronic respiratory failure with hypoxia
[2020-10-15] MEDS ORDERED: EPOETIN ALFA 20,000 UNITS/ML VIAL IV SCH (12:00)
[2020-10-15] MEDS ORDERED: INSULIN GLARGINE SOLOSTAR 100 UNITS/ML 3 ML PEN SC ONE (12:00)
[2020-10-15 12:10] LABS: Potassium 3.1 mmol/L (3.5-5.1)
[2020-10-15 12:19] LABS: Magnesium 2.3 mg/dl (1.8-2.4)
[2020-10-15] MEDS ORDERED: IPRATROPIUM BROMIDE NEB SOLN 0.02% 2.5 ML VIAL INH PRN (12:23)
[2020-10-15] MEDS ORDERED: LEVALBUTEROL 1.25MG/0.5ML NEB INH PRN (12:23)
[2020-10-15] MEDS: LORazepam 1 MG TAB PO PRN (15:18)
--- NOTE | 2020-10-15 15:32 | Hospitalist Progress Note ---
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 Chronic respiratory failure on Home O2 1-2L NC -- remains on 4 L oxymask -- for another HD session today Nephro on board -- Pulm consulted recommend to d/c antibiotics, and Prednisone at this time outpatient work up for Sarcoidosis, Mediastinal LAD -- monitor closely continue Torsemide Hemoptysis -- seems to have resolved bronchoscopy not recommended at this point per Pulm outpatient work up HTN -- continue Amlodipine, Lisinopril, Metoprolol Troponin elevation secondary to illness in the setting of abnormal kidney function Acute on chronic anemia, hemoglobin drop from baseline secondary to hemoptysis -- Hg 7.9 to 7.6 transfuse for < 7 aspirin on hold DM1, reasonable control as of recent hemoglobin A1c of 7.01 August 2020 -- Pharm Glyc Control hyperlipidemia on statin Rx past tobacco abuse DVT prophylaxis. SCDs Re: Hemoptysis Full code Disposition pending anticipate d/c home when medically stable plan of care discussed with patient in detail and at length all questions answered he is understanding, agreeable, comfortable with the plan of care Admission and Anticipated Discharge Date Admission Date: October 13, 2020 Subjective ff up for acute on chronic respiratory failure seen resting in bed, comfortable states he feels about the same breathing is about the same still has dry cough no hemoptysis no chest pain no fever/chills denies other symptoms Review of Systems Review of Systems: All systems reviewed & are unremarkable except as noted in Subjective Physical Exam Physical Exam: General- oriented x 3, not in distress, speaks in sentences with no effort or accessory muscle use Eyes- anicteric Neck- no JVD Lungs- mild rales at the bases no wheezing Heart- normal rate, regular rhythm; no murmurs Abdomen- normal bowel sounds, nondistended, soft, nontender Extremities- no pretibial edema, no calf tenderness Neuro- alert, oriented x 3; no gross focal neurologic deficits Skin- warm & dry Results & Data Results & Data ([facility]) Vital Signs (Past 12 Hours) Vital Signs Temp Pulse Resp BP Pulse Ox 10/15/20 11:31 36.8 C 110 H 18 134/95 98 10/15/20 08:19 37.0 C 94 H 18 165/82 H 92 10/15/20 07:03 86 18 96 10/15/20 03:38 36.8 C 88 22 129/71 95 all noted and reviewed including below Laboratory Results Laboratory Results - last 24 hr 10/14/20 10/14/20 10/14/20 15:40 20:42 20:44 WBC RBC Hgb Hct MCV MCH MCHC RDW Std Deviation RDW Coeff of Selin Plt Count MPV Immature Gran % (Auto) Neut % (Auto) Lymph % (Auto) [place] % (Auto) Eos % (Auto) Baso % (Auto) Neut # (Auto) Lymph # (Auto) [place] # (Auto) Eos # (Auto) Baso # (Auto) Immature Gran # (Auto) Absolute Nucleated RBC Nucleated RBC % (auto) Basophilic Stippling Sodium Potassium Chloride Carbon Dioxide Anion Gap BUN Creatinine Est Cr Clr Drug Dosing Est GFR ( Amer) Est GFR (Non-Af Amer) BUN/Creatinine Ratio Glucose POC Glucose 112 H 316 H* 321 H* Calcium Magnesium Iron Transferrin Transferrin % Sat Beta-Hydroxybutyric Acd Nasal Screen MRSA (PCR) 10/14/20 10/15/20 10/15/20 23:34 02:06 03:37 WBC RBC Hgb Hct MCV MCH MCHC RDW Std Deviation RDW Coeff of Selin Plt Count MPV Immature Gran % (Auto) Neut % (Auto) Lymph % (Auto) [place] % (Auto) Eos % (Auto) Baso % (Auto) Neut # (Auto) Lymph # (Auto) [place] # (Auto) Eos # (Auto) Baso # (Auto) Immature Gran # (Auto) Absolute Nucleated RBC Nucleated RBC % (auto) Basophilic Stippling Sodium Potassium Chloride Carbon Dioxide Anion Gap BUN Creatinine Est Cr Clr Drug Dosing Est GFR ( Amer) Est GFR (Non-Af Amer) BUN/Creatinine Ratio Glucose POC Glucose 292 H 107 H Calcium Magnesium Iron Transferrin Transferrin % Sat Beta-Hydroxybutyric Acd Nasal Screen MRSA (PCR) Negative 10/15/20 10/15/20 10/15/20 07:59 09:40 09:40 WBC 11.50 H RBC 2.57 L Hgb 7.7 L Hct 23.7 L MCV 92.2 MCH 30.0 MCHC 32.5 RDW Std Deviation 55.4 H RDW Coeff of Selin 16.5 H Plt Count 220 MPV 8.9 Immature Gran % (Auto) 1.6 Neut % (Auto) 86.0 Lymph % (Auto) 7.2 [place] % (Auto) 3.1 Eos % (Auto) 1.8 Baso % (Auto) 0.3 Neut # (Auto) 9.88 H Lymph # (Auto) 0.83 L [place] # (Auto) 0.36 Eos # (Auto) 0.21 Baso # (Auto) 0.04 Immature Gran # (Auto) 0.18 H Absolute Nucleated RBC 0.04 H Nucleated RBC % (auto) 0.3 Basophilic Stippling 1+ Sodium 138 Potassium 2.9 L D Chloride 100 Carbon Dioxide 31 Anion Gap 7.0 BUN 23 H Creatinine 5.14 H* D Est Cr Clr Drug Dosing 23.0 Est GFR ( Amer) 15.2 Est GFR (Non-Af Amer) 13.1 BUN/Creatinine Ratio 4.5 L Glucose 328 H* POC Glucose 168 H Calcium 8.7 Magnesium Iron Transferrin Transferrin % Sat Beta-Hydroxybutyric Acd 1.96 Nasal Screen MRSA (PCR) 10/15/20 10/15/20 10/15/20 11:10 11:40 11:50 WBC RBC Hgb Hct MCV MCH MCHC RDW Std Deviation RDW Coeff of Selin Plt Count MPV Immature Gran % (Auto) Neut % (Auto) Lymph % (Auto) [place] % (Auto) Eos % (Auto) Baso % (Auto) Neut # (Auto) Lymph # (Auto) [place] # (Auto) Eos # (Auto) Baso # (Auto) Immature Gran # (Auto) Absolute Nucleated RBC Nucleated RBC % (auto) Basophilic Stippling Sodium Potassium 3.1 L Chloride Carbon Dioxide Anion Gap BUN Creatinine Est Cr Clr Drug Dosing Est GFR ( Amer) Est GFR (Non-Af Amer) BUN/Creatinine Ratio Glucose POC Glucose 314 H* 272 H Calcium Magnesium 2.3 Iron 36 Transferrin 171 L Transferrin % Sat 15 L Beta-Hydroxybutyric Acd Nasal Screen MRSA (PCR) (1) Respiratory failure, acute and chronic Respiratory failure complication: hypoxia Qualified Code(s): J96.21 - Acute and chronic respiratory failure with hypoxia
[2020-10-15] MEDS ORDERED: IRON SUCROSE 100 MG in SYRINGE 0 ML IV ONE (16:00)
[2020-10-15] MEDS: HEPARIN SOD (PORCINE) 1000 UNIT/ML IV SCH ×2 (16:09→16:10)
[2020-10-15] MEDS: lisinopril 40 MG TAB PO SCH (20:11)
[2020-10-15] MEDS: amLODIPine BESYLATE 5 MG TAB PO SCH (20:13)
[2020-10-15] MEDS: INSULIN GLARGINE SOLOSTAR 100 UNITS/ML 3 ML PEN SC SCH (20:14)
[2020-10-15] MEDS: BENZONATATE 100 MG CAPSULE PO PRN (22:50)
[2020-10-16] MEDS: INSULIN ASPART 100 UNITS/ML 3 ML PEN SC SCH ×6 (00:55→17:04)
[2020-10-16] MEDS ORDERED: EPOETIN ALFA 20,000 UNITS/ML VIAL IV ONE (07:00)
[2020-10-16] MEDS ORDERED: IRON SUCROSE 100 MG in SYRINGE 0 ML IV ONE (07:00)
[2020-10-16] MEDS ORDERED: SODIUM CHLORIDE 0.9% 1000ML 1,000 ML IV PRN (07:00)
[2020-10-16] MEDS ORDERED: HEPARIN SOD (PORCINE) 1000 UNIT/ML IV ONE (07:00)
[2020-10-16] MEDS: CALCIUM ACETATE 667 MG CAP/TAB PO SCH ×3 (08:09→17:03)
[2020-10-16] MEDS: METOPROLOL SUCC 50MG EXT REL TAB PO SCH ×2 (08:09→20:52)
[2020-10-16] MEDS: BENZONATATE 100 MG CAPSULE PO PRN (08:09)
[2020-10-16] MEDS: hydrALAZINE HCL 25 MG TAB PO SCH ×2 (08:10→20:51)
[2020-10-16] MEDS: NEPHROCAPS PO SCH (08:10)
[2020-10-16] MEDS: ATORVASTATIN 40 MG TAB PO SCH (08:10)
[2020-10-16] MEDS: CALCIUM CARBONATE 500 MG CHEWABLE TAB PO SCH (08:10)
[2020-10-16] MEDS: TORSEMIDE 100 MG TAB PO SCH (08:11)
[2020-10-16] MEDS: INSULIN GLARGINE SOLOSTAR 100 UNITS/ML 3 ML PEN SC SCH ×2 (08:13→20:53)
--- NOTE | 2020-10-16 11:04 | Progress Notes ---
DATE: 10/16/2020 NEPHROLOGY PROGRESS NOTE SUBJECTIVE: Overnight, the patient continues to be more and more frustrated because of lack of progress in his shortness of breath. He was sleeping very deeply and barely opened his eyes despite repeated command. He had dialysis yesterday and is scheduled to have dialysis again later today. He is requiring 2 liters oxygen, but with that, oxygen level is normal. OBJECTIVE: VITAL SIGNS: Blood pressure is slightly high at 163/82, pulse rate 84, temperature 36.9. HEENT: Mucous membrane is moist. NECK: Supple. No jugular venous distention. CHEST: Very limited quality exam given lack of patient's effort. CARDIOVASCULAR: S1, S2 regular. ABDOMEN: Soft, nontender, obese. EXTREMITIES: Shows trace edema. IMAGING: CT chest done 3 days ago showed multiple findings, which has already been interpreted by pulmonary medicine. ASSESSMENT AND PLAN: A 40-year-old male admitted with shortness of breath. He is chronic dialysis patient Friday, Friday, Friday. He has had few extra session of dialysis, but does not seem to have improved his shortness of breath. 1. End-stage renal disease: At this point, our working hypothesis is pulmonary congestion/edema in a dialysis patient as a predominant cause of shortness of breath. He will be getting dialysis later today. However, the fact that he has not improved significantly, we do have to broaden the differential diagnosis including intrinsic pulmonary disease on top of his ESRD as well as cardiomyopathy. Most likely his next dialysis will be on Friday. Potassium has been low and we will do him on a 3K bath today.
--- NOTE | 2020-10-16 12:57 | Pharmacy Report ---
Pharmacy Glycemic Short Note 2 - Date of Service October 16, 2020 - Glycemic Short BSG Results (Last 24 hours): 10/15/20 10/15/20 10/15/20 16:30 18:43 20:01 POC Glucose 109 H 107 H 197 H 10/16/20 10/16/20 10/16/20 00:37 04:00 07:16 POC Glucose 138 H 102 H 109 H 10/16/20 11:19 POC Glucose 261 H OUTPATIENT ANTIDIABETIC REGIMEN: * Lantus 56 units HS * Novolog 16 units + correction with meals ASSESSMENT: 10/16: * 99 units SQ insulin administered yesterday while tolerating a diet * Fasting BSG 109 this AM w/ 51 units basal on board - will continue a similar dose * Post-prandial BSGs 2 of 3 elevated yesterday. Pre-lunch hyperglycemia observed today, however this is explainable in a type 1 diabetic who refused Novolog to cover carbs in breakfast (see nursing notes). * HD is planned today 10/15: * Patient received total 107 units of insulin yesterday; 51 units basal + 56 units bolus. * Fasting BSG today is unknown. Patient started eating breakfast while AM BSG was checked. * At ~ 4 AM today BSG was 107 mg/dl indicating good control. * Home Lantus dose is all taken at HS. In an effort to go back to home regimen, moved AM Lantus dose to noon today. Plan is to push dosing gradually back to HS. * To prevent hypoglycemia, loosened Novolog CF at lunch. Plan for patient to go to dialysis again today. PLAN FOR INPATIENT GLYCEMIC CONTROL: * Basal insulin * Lantus 25 units SQ q AM + 18-26 units QHS per scale (see EMR for details). * Bolus insulin: * NovoLog per scale ACHS or Q6hrs while NPO * Goal Range: Low 110 mg/dL - High 140 mg/dL * Correction Factor: 20 mg/dL/unit AC; however use 30mg/dL/unit at HS and only if BSG > 180 * Nutritional / Prandial insulin per carb ratio of 1 unit per 5 grams CHO consumed AC, however use 1 unit per 8gm CHO consumed at HS PLAN FOR DISCHARGE: * TBD
[2020-10-16] MEDS ORDERED: AMOXICILLIN/CLAVULANATE 500 MG TAB PO SCH (14:00)
--- NOTE | 2020-10-16 14:53 | Pulmonology Progress Note ---
Date of Service October 16, 2020 Assessment & Plan (1) Respiratory failure, acute and chronic: Respiratory failure complication: hypoxia Qualified Code(s): J96.21 - Acute and chronic respiratory failure with hypoxia (2) Abnormal CT scan of lung: (3) Mediastinal adenopathy: Impression: 40-year-old male with end-stage renal disease on dialysis, history of sarcoidosis admitted with hypoxemia. He denies any hemoptysis. CT chest 10/13/2020 personally reviewed: Diffuse interstitial thickening appreciated bilaterally, positive nodularity is appreciated bilateral upper lobes more on the right side, station 7 mediastinal lymphadenopathy. Right lower lobe groundglass opacity. Small right-sided pleural effusion Patient had CT chest done in the past as well and he had subcarinal lymphadenopathy which is no change significantly. --Acute hypoxic respiratory failure Multifactorial Fluid overload from underlying incisional disease I think playing a major role Right lower lobe groundglass opacity could be pneumonia Procalcitonin 0.85 at the time of presentation and incisional disease patient He is having wheezing. I will give him prednisone. --History of sarcoidosis Follows up with outpatient building superintendent Would recommend follow-up with him again. --Multiple pulmonary nodules Appreciated bilateral upper lobes This is new compared to the previous CAT scan Would recommend repeating a CAT scan in 6 months as well as PFTs If there is any worsening then he might need to be treated for his underlying sarcoidosis Plan: Given the active wheezing as well as history of sarcoidosis I will start the patient on prednisone 40 mg for 3 days followed by 20 mg for 2 days and then stop. Patient has uncontrolled sugar. Defer the management of hypoglycemia to the primary team. Right lower lobe groundglass opacity the patient with elevated procalcitonin negative patient has end-stage renal disease significance is unknown. I will still treated with azithromycin 5 mg for 3 days as I am giving him steroids as well. QTc 478. Will repeat EKG tomorrow. Please note the above document was generated using voice recognition software. It may contain grammatical, syntax or spelling errors.Any formal questions or concerns about the content, text or information contained within the body of this dictation should be directly addressed to the provider for clarification. Admission and Anticipated Discharge Date Admission Date: October 13, 2020 Subjective Patient seen and examined at bedside. No acute distress, no dose events overnight. Patient was sleeping on his left side. He was saturating around 86% on room air. His saturation went significantly to 95% on facemask. He still complains of dry cough not bringing up any phlegm. Denies any chest pain. Shortness of breath has improved compared to before. Review of Systems Review of Systems: All systems reviewed & are unremarkable except as noted in Subjective Physical Exam Physical Exam: Constitutional: No acute distress HEENT: EOMI, PERRLA Respiratory system: Decreased air entry bilaterally, no rhonchi, no crackles, positive wheeze bilaterally CVS: S1-S2 positive, no murmurs or gallops Abdomen: Soft, nontender, nondistended, positive bowel sounds x4 Extremities: +2 pulses bilaterally radialis/ dorsalis pedis, no cyanosis, no edema, right arm AV fistula Neuro: Awake alert oriented x3 Psych: Normal mood and affect G/U: No Rg Skin: no rashes, warm and dry Lymphatic: no cervical or axillary lymphadenopathy Results & Data Results & Data ([facility]) Vital Signs (Past 12 Hours) Vital Signs Temp Pulse Pulse Pulse Resp BP Pulse Ox 10/16/20 13:40 36.7 C 73 73 10/16/20 11:20 36.9 C 82 18 157/82 H 94 10/16/20 07:18 36.9 C 84 20 163/82 H 99 10/16/20 03:58 36.9 C 85 22 157/83 H 96 10/15/20 09:40 10/15/20 11:50 PG Care Time/CCT Total # of Minutes Spent Total Time Spent with Patient: Total time spent is greater than 50% in coordination of care (as documented) at patient's floor/unit and/or counseling patient: Coding Level of Care Code 43959 Subseq Hosp Care Lvl 3 Diagnoses Respiratory failure, acute and chronic J96.21 Respiratory failure complication: hypoxia Abnormal CT scan of lung R91.8 Mediastinal adenopathy R59.0
[2020-10-16] MEDS: LORazepam 1 MG TAB PO PRN ×2 (14:58→21:09)
[2020-10-16] MEDS ORDERED: guaiFENesin/DEXTROM SYRUP 100MG/10MG 5ML UDC PO PRN (15:05)
[2020-10-16] MEDS: HEPARIN SOD (PORCINE) 1000 UNIT/ML IV SCH (16:00)
[2020-10-16] MEDS: AZITHROMYCIN 250 MG TAB PO SCH (17:03)
[2020-10-16] MEDS: predniSONE 20 MG TAB PO SCH (17:03)
--- NOTE | 2020-10-16 17:29 | Hospitalist Progress Note ---
Date of Service October 16, 2020 Assessment & Plan (1) Respiratory failure, acute and chronic: likely secondary to Volume overload, ESRD, chronic systolic heart failure secondary to nonischemic cardiomyopathy as per records (EF 45 to 49%, TTE 2020) Possible Pneumonia? Possible pulmonary sarcoidosis? Chronic respiratory failure on Home O2 1-2L NC -- now on 3 L oxymask -- for another HD session today Nephro on board -- Pulm consulted recommend to start Prednisone taper also start Azithromycin x 3 days outpatient work up for Sarcoidosis, Mediastinal LAD Tessalon perles for cough -- monitor closely continue Torsemide Hemoptysis -- seems to have resolved bronchoscopy not recommended at this point per Pulm outpatient work up HTN -- continue Amlodipine, Lisinopril, Metoprolol Troponin elevation secondary to illness in the setting of abnormal kidney function Acute on chronic anemia, hemoglobin drop from baseline secondary to hemoptysis -- Hg 7.9 to 7.6 transfuse for < 7 aspirin on hold DM1, reasonable control as of recent hemoglobin A1c of 7.01 August 2020 -- Pharm Glyc Control hyperlipidemia on statin Rx past tobacco abuse DVT prophylaxis. SCDs Re: Hemoptysis Full code Disposition pending anticipate d/c home when medically stable plan of care discussed with patient in detail and at length all questions answered he is understanding, agreeable, comfortable with the plan of care Admission and Anticipated Discharge Date Admission Date: October 13, 2020 Subjective ff up for acute on chronic respiratory failure seen resting in bed, sitting up states breathing has improved but still coughing no chest pain, headache, dizziness no fever/chills no other symptoms Review of Systems Review of Systems: All systems reviewed & are unremarkable except as noted in Subjective Physical Exam Physical Exam: General- oriented x 3, not in distress, speaks in sentences with no effort or accessory muscle use Eyes- anicteric Neck- no JVD Lungs- mild rales at the bases good air entry Heart- normal rate, regular rhythm; no murmurs Abdomen- normal bowel sounds, nondistended, soft, nontender Extremities- no pretibial edema, no calf tenderness Neuro- alert, oriented x 3; no gross focal neurologic deficits Skin- warm & dry Results & Data Results & Data ([facility]) Vital Signs (Past 12 Hours) Vital Signs Temp Pulse Pulse Pulse Pulse Resp BP 10/16/20 17:07 78 10/16/20 17:06 37.0 C 84 16 10/16/20 16:50 36.5 C 71 10/16/20 16:40 78 128/78 10/16/20 16:20 82 133/76 10/16/20 16:00 79 118/80 10/16/20 15:40 78 128/64 10/16/20 15:20 79 148/85 H 10/16/20 15:00 78 121/63 10/16/20 14:40 81 126/66 10/16/20 14:20 83 139/58 L 10/16/20 14:00 78 148/84 H 10/16/20 13:40 36.7 C 73 73 10/16/20 11:20 36.9 C 82 18 10/16/20 07:18 36.9 C 84 20 BP Pulse Ox 10/16/20 17:07 10/16/20 17:06 145/75 H 99 10/16/20 16:50 128/69 10/16/20 16:40 10/16/20 16:20 10/16/20 16:00 10/16/20 15:40 10/16/20 15:20 10/16/20 15:00 10/16/20 14:40 10/16/20 14:20 10/16/20 14:00 10/16/20 13:40 10/16/20 11:20 157/82 H 94 10/16/20 07:18 163/82 H 99 all noted and reviewed including below Laboratory Results Laboratory Results - last 24 hr 10/15/20 10/15/20 10/16/20 18:43 20:01 00:37 POC Glucose 107 H 197 H 138 H 10/16/20 10/16/20 10/16/20 04:00 07:16 11:19 POC Glucose 102 H 109 H 261 H 10/16/20 17:01 POC Glucose 85 (1) Respiratory failure, acute and chronic Respiratory failure complication: hypoxia Qualified Code(s): J96.21 - Acute and chronic respiratory failure with hypoxia
[2020-10-16] MEDS: lisinopril 40 MG TAB PO SCH (20:52)
[2020-10-16] MEDS: amLODIPine BESYLATE 5 MG TAB PO SCH (20:53)
[2020-10-16] MEDS ORDERED: INSULIN ASPART 100 UNITS/ML 3 ML PEN SC SCH (21:00)
[2020-10-16] MEDS ORDERED: INSULIN ASPART 100 UNITS/ML 3 ML PEN SC ONE (21:00)
[2020-10-17] MEDS: INSULIN ASPART 100 UNITS/ML 3 ML PEN SC SCH ×7 (00:08→23:42)
[2020-10-17] MEDS ORDERED: COUGH DROP (SUGAR FREE) LOZ 24 LOZ/1 BOX BUCCAL ONE (04:12)
[2020-10-17] MEDS ORDERED: Nursing to Pharmacy Communication SCH (04:30)
[2020-10-17] MEDS ORDERED: COUGH DROP (SUGAR FREE) LOZ 24 LOZ/1 BOX BUCCAL PRN (04:31)
[2020-10-17] MEDS: ATORVASTATIN 40 MG TAB PO SCH (08:13)
[2020-10-17] MEDS: predniSONE 20 MG TAB PO SCH (08:14)
[2020-10-17] MEDS: AZITHROMYCIN 250 MG TAB PO SCH (08:14)
[2020-10-17] MEDS: CALCIUM ACETATE 667 MG CAP/TAB PO SCH ×3 (08:14→16:50)
[2020-10-17] MEDS: METOPROLOL SUCC 50MG EXT REL TAB PO SCH ×2 (08:14→20:58)
[2020-10-17] MEDS: INSULIN GLARGINE SOLOSTAR 100 UNITS/ML 3 ML PEN SC SCH ×2 (08:15→21:21)
[2020-10-17] MEDS: hydrALAZINE HCL 25 MG TAB PO SCH ×2 (08:15→20:58)
[2020-10-17] MEDS: TORSEMIDE 100 MG TAB PO SCH (08:15)
[2020-10-17] MEDS: NEPHROCAPS PO SCH (08:15)
[2020-10-17] MEDS: CALCIUM CARBONATE 500 MG CHEWABLE TAB PO SCH (08:16)
[2020-10-17] MEDS: LORazepam 1 MG TAB PO PRN (08:18)
[2020-10-17] MEDS: amLODIPine BESYLATE 5 MG TAB PO SCH (08:55)
--- NOTE | 2020-10-17 09:17 | Pulmonology Progress Note ---
Date of Service October 17, 2020 Assessment & Plan (1) Respiratory failure, acute and chronic: Respiratory failure complication: hypoxia Qualified Code(s): J96.21 - Acute and chronic respiratory failure with hypoxia (2) Abnormal CT scan of lung: (3) Mediastinal adenopathy: Impression: 40-year-old male with end-stage renal disease on dialysis, history of sarcoidosis admitted with hypoxemia. He denies any hemoptysis. CT chest 10/13/2020 personally reviewed: Diffuse interstitial thickening appreciated bilaterally, positive nodularity is appreciated bilateral upper lobes more on the right side, station 7 mediastinal lymphadenopathy. Right lower lobe groundglass opacity. Small right-sided pleural effusion Patient had CT chest done in the past as well and he had subcarinal lymphadenopathy which is no change significantly. --Acute hypoxic respiratory failure Multifactorial Fluid overload from underlying ESRD I think playing a major role Right lower lobe groundglass opacity could be pneumonia Procalcitonin 0.85 at the time of presentation and incisional disease patient --Mediastinal lymphadenopathy Follows up with outpatient breaker up machine operator There was a questionable history of sarcoidosis but has not been biopsy-proven Positive lymphopenia, calcium/AST/ALT within normal Patient has a breaker up machine operator as an outpatient can follow-up with them. --Multiple pulmonary nodules Appreciated bilateral upper lobes This is new compared to the previous CAT scan Would recommend repeating a CAT scan in 6 months as well as PFTs Plan: Continue with prednisone for 4 more days. Continue with azithromycin for 2 more days Symptomatic treatment for cough QTC 469 today Please note the above document was generated using voice recognition software. It may contain grammatical, syntax or spelling errors.Any formal questions or concerns about the content, text or information contained within the body of this dictation should be directly addressed to the provider for clarification. Admission and Anticipated Discharge Date Admission Date: October 13, 2020 Subjective Patient seen and examined at bedside. No acute distress. Patient was overnight. Patient states he is feeling better when it comes to his breathing. But he still complains of dry cough. Denies any chest pain, no headache, no nausea, no vomiting. Good appetite. He got dialysis yesterday. He supposed to have another dialysis tomorrow. No belly pain. Denies any hemoptysis. Review of Systems Review of Systems: All systems reviewed & are unremarkable except as noted in Subjective Physical Exam Physical Exam: Constitutional: No acute distress HEENT: EOMI, PERRLA Respiratory system: Decreased air entry bilaterally, no rhonchi, no crackles, no wheeze CVS: S1-S2 positive, no murmurs or gallops Abdomen: Soft, nontender, nondistended, positive bowel sounds x4, Obese Extremities: +2 pulses bilaterally radialis/ dorsalis pedis, no cyanosis, no edema, right arm AV fistula Neuro: Awake alert oriented x3 Psych: Normal mood and affect G/U: No Rg Skin: no rashes, warm and dry Lymphatic: no cervical or axillary lymphadenopathy Results & Data Results & Data ([facility]) Vital Signs (Past 12 Hours) Vital Signs Temp Pulse Resp BP Pulse Ox 10/17/20 04:04 37 C 83 20 144/78 H 96 10/16/20 22:32 36.9 C 86 20 144/78 H 96 10/15/20 09:40 10/15/20 11:50 PG Care Time/CCT Total # of Minutes Spent Total Time Spent with Patient: Total time spent is greater than 50% in coordination of care (as documented) at patient's floor/unit and/or counseling patient: Coding Level of Care Code 26657 Subseq Hosp Care Lvl 3 Diagnoses Respiratory failure, acute and chronic J96.21 Respiratory failure complication: hypoxia Abnormal CT scan of lung R91.8 Mediastinal adenopathy R59.0
--- NOTE | 2020-10-17 10:59 | XRay Report ---
XR chest 1V portable HISTORY: Shortness of breath. COMPARISON: Chest 10/13/2020. FINDINGS: Mild diffuse interstitial thickening and cardiomegaly remains unchanged. No pleural fusions . No pneumothorax. Old, healed right clavicle fracture. No new focal lung consolidations identified. IMPRESSION: No change in the diffuse interstitial thickening and mild cardiomegaly. This suggests mild pulmonary congestion. ACT 112: Negative or not required by law. Electronically signed by: Arley Garcia M.D. 10/17/2020 10:58 AM
--- NOTE | 2020-10-17 11:03 | Hospitalist Progress Note ---
Date of Service October 17, 2020 Assessment & Plan (1) Respiratory failure, acute and chronic: likely secondary to Volume overload, ESRD, chronic systolic heart failure secondary to nonischemic cardiomyopathy as per records (EF 45 to 49%, TTE 2020) Possible Pneumonia? Possible pulmonary sarcoidosis? There was a questionable history of sarcoidosis but has not been biopsy-proven Chronic respiratory failure on Home O2 1-2L NC -- presented with progressive dyspnea, with occasional hemoptysis -- CT chest: 1. Diffuse interlobular septal thickening with small bilateral pleural effusions and mild cardiomegaly. This likely represents interstitial pulmonary edema. 2. There are near diffuse groundglass airspace opacities most pronounced within the base of the right lower lobe. This likely represents an alveolar component of the pulmonary edema. A superimposed pneumonia cannot be excluded. 3. There are few small scattered nodular densities within the lungs measuring up to 6 mm. These are nonspecific but may correspond to the patient's history of sarcoidosis. A [address] follow-up is recommended to ensure stability/resolution. 4. Mild mediastinal and bilateral hilar lymphadenopathy. This can be seen in the setting of sarcoidosis or chronic pulmonary edema. This bears watching on future examinations to ensure stability. -- gradually improving --weaned off from 5 L, now on 2 L oxymask -- had 2 HD sessions so far Nephro on board continue Torsemide -- Pulm consulted recommend Prednisone taper - prednisone 40 mg for 3 days followed by 20 mg for 2 days and then stop. also Azithromycin x 3 days Tessalon perles for cough outpatient work up for Sarcoidosis, Mediastinal Lymphadenopathy Hemoptysis -- seems to have resolved cough also improving bronchoscopy not recommended at this point per Pulm outpatient work up continue to ff up with [facility] [employer] HTN -- continue Amlodipine, Lisinopril, Metoprolol Troponin elevation secondary to illness in the setting of abnormal kidney function Acute on chronic anemia, hemoglobin drop from baseline secondary to hemoptysis -- Hg 7.9 to 7.6 transfuse for < 7 aspirin on hold in light of hemoptysis DM1, reasonable control as of recent hemoglobin A1c of 7.01 August 2020 -- Pharm Glyc Control hyperlipidemia on statin Rx past tobacco abuse DVT prophylaxis. SCDs Re: Hemoptysis Full code Disposition pending anticipate d/c home when medically stable plan of care discussed with patient in detail and at length all questions answered he is understanding, agreeable, comfortable with the plan of care Admission and Anticipated Discharge Date Admission Date: October 13, 2020 Subjective ff up for acute on chronic respiratory failure, etc seen resting in bed, watching TV, on 2 L oxymask states he feels about the same as yesterday breathing minimally improved cough improving, no hemoptysis no fever/chills no chest pain, headache, dizziness, nausea/vomiting, abdominal pain appetite is good no other symptoms Review of Systems Review of Systems: All systems reviewed & are unremarkable except as noted in Subjective Physical Exam Physical Exam: General- oriented x 3, not in distress, speaks in sentences with no effort or accessory muscle use Eyes- anicteric Neck- no JVD Lungs- mild rhonchi bilaterally good air entry bilaterally no wheezing Heart- normal rate, regular rhythm; no murmurs Abdomen- normal bowel sounds, nondistended, soft, nontender Extremities- no pretibial edema, no calf tenderness Neuro- alert, oriented x 3; no gross focal neurologic deficits Skin- warm & dry Results & Data Results & Data ([facility]) Vital Signs (Past 12 Hours) Vital Signs Temp Pulse Resp BP Pulse Ox 10/17/20 04:04 37 C 83 20 144/78 H 96 (1) Respiratory failure, acute and chronic Respiratory failure complication: hypoxia Qualified Code(s): J96.21 - Acute and chronic respiratory failure with hypoxia
[2020-10-17] MEDS ORDERED: INSULIN GLARGINE SOLOSTAR 100 UNITS/ML 3 ML PEN SC ONE (11:30)
--- NOTE | 2020-10-17 11:31 | Pharmacy Report ---
Pharmacy Glycemic Short Note 2 - Date of Service October 17, 2020 - Glycemic Short BSG Results (Last 24 hours): 10/16/20 10/16/20 10/16/20 17:01 20:39 20:40 POC Glucose 85 368 H* 425 H* 10/16/20 10/16/20 10/17/20 23:56 23:57 04:02 POC Glucose 384 H* 359 H* 220 H 10/17/20 07:37 POC Glucose 272 H OUTPATIENT ANTIDIABETIC REGIMEN: * Lantus 56 units HS * Novolog 16 units + correction with meals ASSESSMENT: 10/17: * Glycemic control has deteriorated substantially in last 24 hrs, due in part to the addition of steroids as well as patient refusal of prandial insulin with 2 of 3 meals yesterday. music educator consulted for patient assistance. * Will increase patient's out-pt regimen by 20% given new use of steroids. Prednisone 40mg PO daily appears to be ordered for 3 days only. 10/16: * 99 units SQ insulin administered yesterday while tolerating a diet * Fasting BSG 109 this AM w/ 51 units basal on board - will continue a similar dose * Post-prandial BSGs 2 of 3 elevated yesterday. Pre-lunch hyperglycemia observed today, however this is explainable in a type 1 diabetic who refused Novolog to cover carbs in breakfast (see nursing notes). * HD is planned today 10/15: * Patient received total 107 units of insulin yesterday; 51 units basal + 56 units bolus. * Fasting BSG today is unknown. Patient started eating breakfast while AM BSG was checked. * At ~ 4 AM today BSG was 107 mg/dl indicating good control. * Home Lantus dose is all taken at HS. In an effort to go back to home regimen, moved AM Lantus dose to noon today. Plan is to push dosing gradually back to HS. * To prevent hypoglycemia, loosened Novolog CF at lunch. Plan for patient to go to dialysis again today. PLAN FOR INPATIENT GLYCEMIC CONTROL: * Basal insulin - increase * Lantus 34 units SQ BID, (received 25 units Lantus this AM, therefore will give 10 additional units w/ lunch) * Bolus insulin: * NovoLog per scale ACHS and at 0000 + 0400 tonight * Goal Range: Low 110 mg/dL - High 140 mg/dL * Correction Factor: 18 mg/dL/unit AC; however use 25mg/dL/unit at HS and overnight and only if BSG > 180 * Nutritional / Prandial insulin per carb ratio of 1 unit per 4 grams CHO consumed AC, however use 1 unit per 8gm CHO consumed at HS PLAN FOR DISCHARGE: * TBD
--- NOTE | 2020-10-17 11:32 | Nephrology Progress Note ---
Date of Service October 17, 2020 Assessment & Plan Admission and Anticipated Discharge Date Admission Date: October 13, 2020 Subjective NEPHROLOGY PROGRESS NOTE SUBJECTIVE: Today says slightly better shortness of breath. He had dialysis 3 days a in a row. yesterday had some cramp towards the end. OBJECTIVE: HEENT: Mucous membrane is moist. NECK: Supple. No jugular venous distention. CHEST: Very limited quality exam given lack of patient's effort. CARDIOVASCULAR: S1, S2 regular. ABDOMEN: Soft, nontender, obese. EXTREMITIES: NO edema. IMAGING: CT chest done 3 days ago showed multiple findings, which has already been interpreted by pulmonary medicine. ASSESSMENT AND PLAN: A 40-year-old male admitted with shortness of breath. He is chronic dialysis patient Friday, Friday, Friday. He has had few extra session of dialysis, but does not seem to have improved his shortness of breath in a major way. 1. End-stage renal disease: At this point, our working hypothesis is pulmonary congestion/edema in a dialysis patient as a predominant cause of shortness of breath. However, the fact that he has not improved significantly, we do have to broaden the differential diagnosis including intrinsic pulmonary disease on top of his ESRD as well as cardiomyopathy. lso he is satrting to cramp so we have Squeezed enough UF at this time. His next dialysis will be on Friday. Potassium has been low and we will do him on a 3K bath but he also need labs tomorrow. 2 Pulmonry follow up appreciated--Intrinsic Lung issue also being investigated. . Results & Data ([facility]) Vital Signs (Past 12 Hours) Vital Signs Temp Pulse Resp BP Pulse Ox 10/17/20 04:04 37 C 83 20 144/78 H 96
[2020-10-17 12:46] LABS: BUN Creatinine Ratio 6.9 (10-20); Beta-Hydroxybutyrate 1.54 mg/dl (0.2-2.81); Calcium 9.1 mg/dl (8.5-10.1); Creatinine Clr Calc Pharmacy 20.4 ml/min; Est GFR (African American) 13.2 ml/min; Est GFR (Non-African American) 11.3 ml/min; Potassium 4.7 mmol/L (3.5-5.1)
[2020-10-17] MEDS ORDERED: INSULIN ASPART 100 UNITS/ML 3 ML PEN SC ONE (13:51)
--- NOTE | 2020-10-17 13:51 | Electrocardiogram Report ---
Test Reason : Blood Pressure : / mmHG Vent. Rate : 081 BPM Atrial Rate : 081 BPM P-R Int : 158 ms QRS Dur : 084 ms QT Int : 404 ms P-R-T Axes : 042 -06 044 degrees QTc Int : 469 ms Normal sinus rhythm Possible Left atrial enlargement Borderline ECG When compared with ECG of 13-OCT-2020 16:32, No significant change was found Confirmed by Zeferino Desai ([id number]) on 10/17/2020 1:50:39 PM Referred By: REFERRED SELF Confirmed By:Zeferino Desai
[2020-10-17] MEDS: lisinopril 40 MG TAB PO SCH (20:58)
[2020-10-17] MEDS ORDERED: traZODone HCL 50 MG TAB PO PRN (23:11)
[2020-10-18] MEDS: INSULIN ASPART 100 UNITS/ML 3 ML PEN SC SCH ×3 (04:17→15:14)
[2020-10-18 06:20] LABS: Basophils # (auto) 0.04 K/uL (0-0.2); Basophils % (auto) 0.3 %; Eosinophils # (auto) 0.12 K/uL (0-0.5); Eosinophils % (auto) 0.9 %; Hemoglobin 8.6 g/dL (14.0-18.0); Immature Granulocytes # (auto) 0.38 K/uL (0.00-0.02); Immature Granulocytes % (auto) 2.9 %; Lymphocytes # (auto) 1.74 K/uL (1.2-3.4); Lymphocytes % (auto) 13.1 %; Mean Corpuscular Hemoglobin 30.3 pg (25-34); Mean Corpuscular Hgb Conc 33.1 g/dL (32-36); Mean Corpuscular Volume 91.5 fL (80-100); Mean Platelet Volume 9.2 fL (7.4-10.4); Monocytes # (auto) 0.93 K/uL (0.11-0.59); Neutrophils # (auto) 10.03 K/uL (1.4-6.5); Neutrophils % (auto) 75.8 %; Nucleated RBC # (auto) 0.13 K/uL (0-0); Platelet Count 310 K/uL (130-400); RDW Coefficient of Variation 16.7 % (11.5-14.5); RDW Standard Deviation 54.5 fL (36.4-46.3); Red Blood Count 2.84 M/uL (4.7-6.1); White Blood Count 13.24 K/uL (4.8-10.8)
[2020-10-18 07:00] LABS: BUN Creatinine Ratio 8.2 (10-20); Calcium 8.5 mg/dl (8.5-10.1); Creatinine Clr Calc Pharmacy 15.2 ml/min; Est GFR (African American) 9.2 ml/min
[2020-10-18 07:16] LABS: Potassium 3.8 mmol/L (3.5-5.1)
[2020-10-18] MEDS: CALCIUM CARBONATE 500 MG CHEWABLE TAB PO SCH (09:22)
[2020-10-18] MEDS: CALCIUM ACETATE 667 MG CAP/TAB PO SCH ×2 (09:22→14:44)
[2020-10-18] MEDS: predniSONE 20 MG TAB PO SCH (09:22)
[2020-10-18] MEDS: NEPHROCAPS PO SCH (09:22)
[2020-10-18] MEDS: ATORVASTATIN 40 MG TAB PO SCH (09:23)
[2020-10-18] MEDS: AZITHROMYCIN 250 MG TAB PO SCH (09:23)
[2020-10-18] MEDS: LORazepam 1 MG TAB PO PRN (09:26)
[2020-10-18] MEDS: INSULIN GLARGINE SOLOSTAR 100 UNITS/ML 3 ML PEN SC SCH (09:28)
--- NOTE | 2020-10-18 09:59 | Pulmonology Progress Note ---
Date of Service October 18, 2020 Assessment & Plan (1) Respiratory failure, acute and chronic: Respiratory failure complication: hypoxia Qualified Code(s): J96.21 - Acute and chronic respiratory failure with hypoxia (2) Abnormal CT scan of lung: (3) Mediastinal adenopathy: Impression: 40-year-old male with end-stage renal disease on dialysis, history of sarcoidosis admitted with hypoxemia. He denies any hemoptysis. CT chest 10/13/2020 personally reviewed: Diffuse interstitial thickening appreciated bilaterally, positive nodularity is appreciated bilateral upper lobes more on the right side, station 7 mediastinal lymphadenopathy. Right lower lobe groundglass opacity. Small right-sided pleural effusion Patient had CT chest done in the past as well and he had subcarinal lymphadenopathy which is no change significantly. --Acute on chronic hypoxic respiratory failure Multifactorial Fluid overload from underlying ESRD I think playing a major role Right lower lobe groundglass opacity could be pneumonia Procalcitonin 0.85 at the time of presentation and incisional disease patient --Mediastinal lymphadenopathy Follows up with outpatient assistant at surgery There was a questionable history of sarcoidosis but has not been biopsy-proven Positive lymphopenia, calcium/AST/ALT within normal Patient has a assistant at surgery as an outpatient can follow-up with them. --Multiple pulmonary nodules Appreciated bilateral upper lobes This is new compared to the previous CAT scan Would recommend repeating a CAT scan in 6 months as well as PFTs Plan: I will go down on prednisone to 20 mg daily for 3 days Continue with azithromycin for 1 more day Symptomatic treatment for cough QTC 469 today Case was discussed with Dr. Kate Patient needs to follow-up with his outpatient assistant at surgery within a week or so. No further recommendations from pulmonary perspective. Please call directly with any questions Please note the above document was generated using voice recognition software. It may contain grammatical, syntax or spelling errors.Any formal questions or concerns about the content, text or information contained within the body of this dictation should be directly addressed to the provider for clarification. Admission and Anticipated Discharge Date Admission Date: October 13, 2020 Subjective Patient seen and examined at bedside. No acute distress, no adverse events overnight. Patient was sleeping prior to examination. He denies any chest pain. He says his cough has decreased in intensity. Denies any hemoptysis. No chest pain. He scheduled for dialysis today. Review of Systems Review of Systems: All systems reviewed & are unremarkable except as noted in Subjective Physical Exam Physical Exam: Constitutional: No acute distress HEENT: EOMI, PERRLA Respiratory system: Decreased air entry bilaterally, no rhonchi, no crackles, no wheeze CVS: S1-S2 positive, no murmurs or gallops Abdomen: Soft, nontender, nondistended, positive bowel sounds x4, Obese Extremities: +2 pulses bilaterally radialis/ dorsalis pedis, no cyanosis, no edema, right arm AV fistula Neuro: Awake alert oriented x3 Psych: Normal mood and affect G/U: No Rg Skin: no rashes, warm and dry Lymphatic: no cervical or axillary lymphadenopathy Results & Data Results & Data ([facility]) Vital Signs (Past 12 Hours) Vital Signs Temp Pulse Pulse Resp BP Pulse Ox 10/18/20 08:11 36.7 C 79 20 153/95 H 93 10/18/20 03:31 37.0 C 70 18 137/66 99 10/18/20 00:01 37.0 C 75 19 138/71 98 10/17/20 23:10 79 10/18/20 05:31 10/18/20 05:31 PG Care Time/CCT Total # of Minutes Spent Total Time Spent with Patient: Total time spent is greater than 50% in coordination of care (as documented) at patient's floor/unit and/or counseling patient: Coding Level of Care Code 10304 Subseq Hosp Care Lvl 3 Diagnoses Respiratory failure, acute and chronic J96.21 Respiratory failure complication: hypoxia Abnormal CT scan of lung R91.8 Mediastinal adenopathy R59.0
--- NOTE | 2020-10-18 10:22 | Dialysis Progress Note ---
Date of Service October 18, 2020 Assessment & Plan Admission and Anticipated Discharge Date Admission Date: October 13, 2020 Subjective Dialysis PROGRESS NOTE SUBJECTIVE: Seen in dialysis. So far fine. BP fine.AVF fine OBJECTIVE: HEENT: Mucous membrane is moist. NECK: Supple. No jugular venous distention. CHEST: Very limited quality exam given lack of patient's effort. CARDIOVASCULAR: S1, S2 regular. ABDOMEN: Soft, nontender, obese. EXTREMITIES: NO edema. IMAGING: CT chest done 3 days ago showed multiple findings, which has already been interpreted by pulmonary medicine. ASSESSMENT AND PLAN: A 40-year-old male admitted with shortness of breath. He is chronic dialysis patient Friday, Friday, Friday. He has had few extra session of dialysis, but does not seem to have improved his shortness of breath in a major way. 1. End-stage renal disease: At this point, our working hypothesis is pulmonary congestion/edema in a dialysis patient as a predominant cause of shortness of breath. However, the fact that he has not improved significantly, we do have to broaden the differential diagnosis including intrinsic pulmonary disease on top of his ESRD as well as cardiomyopathy. Also he is starting to cramp so we have Squeezed enough UF at this time. Will take 3 kilo off today in 4 hrs. Will do CXR today After Dialysis. Stable for Discharge from Dialysis Standpoint. Defer to Primary service and Pulmonary regarding Discharge time. 2 Pulmonary follow up appreciated--Intrinsic Lung issue also being investigated. Results & Data ([facility]) Vital Signs (Past 12 Hours) Vital Signs Temp Pulse Pulse Resp BP Pulse Ox 10/18/20 08:11 36.7 C 79 20 153/95 H 93 10/18/20 03:31 37.0 C 70 18 137/66 99 10/18/20 00:01 37.0 C 75 19 138/71 98 10/17/20 23:10 79
--- NOTE | 2020-10-18 11:26 | Pharmacy Report ---
Pharmacy Glycemic Short Note 2 - Date of Service October 18, 2020 - Glycemic Short BSG Results (Last 24 hours): 10/17/20 10/17/20 10/17/20 11:34 11:36 11:50 Glucose 401 H* POC Glucose 439 H* 415 H* 10/17/20 10/17/20 10/17/20 14:00 16:06 21:00 Glucose POC Glucose 353 H* 231 H 212 H 10/17/20 10/17/20 10/18/20 23:37 23:38 04:11 Glucose POC Glucose 326 H* 316 H* 181 H 10/18/20 10/18/20 05:31 07:29 Glucose 134 H POC Glucose 104 H OUTPATIENT ANTIDIABETIC REGIMEN: * Lantus 56 units HS * Novolog 16 units + correction with meals ASSESSMENT: 10/18: * Glycemic control has been challenging since prednisone started. BSGs have improved over-night. Patient will again receive Prednisone 40mg this AM, but will decrease to 20mg daily starting tomorrow. * 145 units SQ administered over last 24 hrs while tolerating a diet * Fasting BSG 104-134 this AM with 69 units basal on board - will reduce dose starting this evening in preparation for step down in steroid dose tomorrow * Post-prandial hyperglycemia clearly the primary problem based upon BSG pattern yesterday - will increase prandial insulin and correctional insulin doses * Will continue to use reduced correctional and prandial insulin doses overnight in anticipation of improved insulin sensitivity as prednisone wears off, albeit this patient seems to remain fairly insulin resistant even thru midni ght 10/17: * Glycemic control has deteriorated substantially in last 24 hrs, due in part to the addition of steroids as well as patient refusal of prandial insulin with 2 of 3 meals yesterday. customer equipment engineer consulted for patient assistance. * Will increase patient's out-pt regimen by 20% given new use of steroids. Prednisone 40mg PO daily appears to be ordered for 3 days only. 10/16: * 99 units SQ insulin administered yesterday while tolerating a diet * Fasting BSG 109 this AM w/ 51 units basal on board - will continue a similar dose * Post-prandial BSGs 2 of 3 elevated yesterday. Pre-lunch hyperglycemia observed today, however this is explainable in a type 1 diabetic who refused Novolog to cover carbs in breakfast (see nursing notes). * HD is planned today 10/15: * Patient received total 107 units of insulin yesterday; 51 units basal + 56 units bolus. * Fasting BSG today is unknown. Patient started eating breakfast while AM BSG was checked. * At ~ 4 AM today BSG was 107 mg/dl indicating good control. * Home Lantus dose is all taken at HS. In an effort to go back to home regimen, moved AM Lantus dose to noon today. Plan is to push dosing gradually back to HS. * To prevent hypoglycemia, loosened Novolog CF at lunch. Plan for patient to go to dialysis again today. PLAN FOR INPATIENT GLYCEMIC CONTROL: * Basal insulin - decrease * Lantus 30 units SQ BID * Bolus insulin: * NovoLog per scale ACHS and at 0200 * Goal Range: Low 110 mg/dL - High 140 mg/dL * Correction Factor: 12 mg/dL/unit AC; however use 25mg/dL/unit at HS and overnight and only if BSG > 180 * Nutritional / Prandial insulin per carb ratio of 1 unit per 3 grams CHO consumed AC, however use 1 unit per 5gm CHO consumed at HS PLAN FOR DISCHARGE: * Patient did not SMBG at home despite using of mulitiple daily insulin injections. office mover has provided the patient with glucometer. A1c values in the setting of ESRD are not reliable for assessing level of glycemic control - but trending a patient's A1c does have some merit for trending purposes. However the best measure is a BSG log, which is unavailable. Would recommend continuation of outpt insulin doses on discharge, recommend monitoring BSGs and keeping a log for f/u with PCP/Endocrinology.
[2020-10-18 12:24] LABS: Estimated Average Glucose 154 mg/dl
--- NOTE | 2020-10-18 14:29 | XRay Report ---
XR chest 2V PA/lateral CLINICAL HISTORY: Congestive failure. Follow-up study. COMPARISON STUDY: 10/17/2020 FINDINGS: The heart is mildly enlarged. There is been resolution of the previously described fluid ov erload. There is no focal pulmonary consolidation. There are no pleural effusions.[There is an old ri ght clavicular fracture. IMPRESSION: 1. Interval resolution of previously described fluid overload. 2. Mild cardiomegaly. No evidence of focal pulmonary consolidation. ACT 112: Negative or not required by law. Electronically signed by: Daryl Collins M.D. 10/18/2020 2:28 PM
[2020-10-18] MEDS: METOPROLOL SUCC 50MG EXT REL TAB PO SCH (14:43)
[2020-10-18] MEDS: hydrALAZINE HCL 25 MG TAB PO SCH (14:44)
[2020-10-18] MEDS: TORSEMIDE 100 MG TAB PO SCH (14:44)
--- NOTE | 2020-10-18 16:42 | Hospitalist Progress Note ---
Date of Service October 18, 2020 Assessment & Plan (1) Respiratory failure, acute and chronic: Secondary to Volume overload, ESRD, chronic systolic heart failure secondary to nonischemic cardiomyopathy as per records (EF 45 to 49%, TTE 2020) Possible Pneumonia/Bronchitis Possible pulmonary sarcoidosis? There was a questionable history of sarcoidosis but has not been biopsy-proven Chronic respiratory failure on Home O2 1-2L NC Presented with progressive dyspnea, with occasional hemoptysis Has been on oral prednisone and azithromycin Clinically he is back to his baseline following dialysis He will be discharged home tomorrow -- CT chest: 1. Diffuse interlobular septal thickening with small bilateral pleural effusions and mild cardiomegaly. This likely represents interstitial pulmonary edema. 2. There are near diffuse groundglass airspace opacities most pronounced within the base of the right lower lobe. This likely represents an alveolar component of the pulmonary edema. A superimposed pneumonia cannot be excluded. 3. There are few small scattered nodular densities within the lungs measuring up to 6 mm. These are nonspecific but may correspond to the patient's history of sarcoidosis. A [address] follow-up is recommended to ensure stability/resolution. 4. Mild mediastinal and bilateral hilar lymphadenopathy. This can be seen in the setting of sarcoidosis or chronic pulmonary edema. This bears watching on future examinations to ensure stability. End-stage renal disease on hemodialysis We will continue with HD Appreciate nephrology input and recommendation Continue Torsemide Possible sarcoidosis Presented with respiratory failure as above Appreciate pulmonary input and recommendation Rrecommend Prednisone taper - prednisone 40 mg for 3 days followed by 20 mg for 2 days and then stop. Anjel daniels for cough Outpatient work up for Sarcoidosis, Mediastinal Lymphadenopathy Hemoptysis -- seems to have resolved cough also improving bronchoscopy not recommended at this point per Pulm outpatient work up continue to ff up with [facility] Nurse Hemoptysis resolved HTN Continue Amlodipine, Lisinopril, Metoprolol Troponin elevation secondary to illness in the setting of abnormal kidney function Doubt any ACS Acute on chronic anemia, hemoglobin drop from baseline secondary to hemoptysis Hg 7.9 to 7.6 Transfuse for < 7 Aspirin on hold in light of hemoptysis DM1, reasonable control as of recent hemoglobin A1c of 7.01 August 2020 Pharm Glyc Control Hyperlipidemia on statin Rx Past tobacco abuse DVT prophylaxis. SCDs Re: Hemoptysis Full code Disposition pending anticipate d/c home when medically stable plan of care discussed with patient in detail and at length all questions answered he is understanding, agreeable, comfortable with the plan of care Admission and Anticipated Discharge Date Admission Date: October 13, 2020 Subjective 10/18/2020 The patient was seen and examined in telemetry unit He is a status post dialysis and has been feeling a lot better He denies any other symptoms He was advised to stay tonight and will be discharged home tomorrow morning Review of Systems Review of Systems: All systems reviewed and are unremarkable except as noted below Respiratory: + dyspnea on exertion Physical Exam Physical Exam: Lying in bed comfortably Constitutional: well developed, well nourished, + ill appearing and + obese Eyes: PERRL, conjunctivae normal, anicteric sclerae ENMT: external ear and nose normal, oropharynx normal Neck: trachea midline, no thyromegaly Respiratory: no respiratory distress Auscultation: + diminished lung sounds and + crackles (Minimal bibasilar crackles) Cardiovascular: Rate/Rhythm: regular rate and regular rhythm Heart Sounds: no murmur Extremities: + edema (Trace edema bilaterally) Gastrointestinal (Abdomen): Inspection/Auscultation: + abdomen distended; + abnormal bowel sounds Percussion/Palpation: abdomen soft; abdomen nontender Musculoskeletal: No acute arthritis in any joint Neurologic: Alert, awake and oriented x3 Psychiatric: A+Ox3, euthymic affect Lymphatic: no cervical or axillary lymphadenopathy Results & Data Results & Data ([facility]) Vital Signs (Past 12 Hours) Vital Signs Temp Pulse Pulse Pulse Resp BP BP 10/18/20 14:56 36.4 C L 87 20 123/65 10/18/20 13:50 37.2 C 77 77 125/71 125/71 10/18/20 13:40 81 140/84 10/18/20 13:20 79 128/68 10/18/20 13:00 79 129/72 10/18/20 12:40 79 121/76 10/18/20 12:20 76 135/72 10/18/20 12:00 70 147/73 H 10/18/20 11:40 73 119/62 10/18/20 11:20 82 77/63 L 10/18/20 11:00 76 100/61 10/18/20 10:40 78 109/70 10/18/20 10:20 65 143/65 H 10/18/20 10:00 74 116/47 L 10/18/20 09:49 36.7 C 75 75 127/75 10/18/20 08:11 36.7 C 79 20 153/95 H Pulse Ox 10/18/20 14:56 96 10/18/20 13:50 10/18/20 13:40 10/18/20 13:20 10/18/20 13:00 10/18/20 12:40 10/18/20 12:20 10/18/20 12:00 10/18/20 11:40 10/18/20 11:20 10/18/20 11:00 10/18/20 10:40 10/18/20 10:20 10/18/20 10:00 10/18/20 09:49 10/18/20 08:11 93 Laboratory Results Short CBC 10/18/20 Range/Units 05:31 WBC 13.24 H (4.8-10.8) K/uL Hgb 8.6 L (14.0-18.0) g/dL Hct 26.0 L (42-52) % Plt Count 310 (130-400) K/uL BMP 10/18/20 05:31 Sodium 135 L Potassium 3.8 D Chloride 101 Carbon Dioxide 26 BUN 64 H D Creatinine 7.78 H* D Glucose 134 H Calcium 8.5 Medications Administered Current Inpatient Medications Acetaminophen (Acetaminophen 325 Mg Tab) 650 mg PO Q4H PRN PRN Reason: Pain or Fever Stop: 11/12/20 23:24 Last Admin: 10/16/20 20:51 Dose: 650 mg Documented by: Amlodipine Besylate (Amlodipine Besylate 5 Mg Tab) 10 mg PO HS CHENG Stop: 11/12/20 23:24 Last Admin: 10/17/20 08:55 Dose: 10 mg Documented by: Atorvastatin Calcium (Atorvastatin 40 Mg Tab) 40 mg PO DAILY CHENG Stop: 11/13/20 08:59 Last Admin: 10/18/20 09:23 Dose: 40 mg Documented by: Azithromycin (Azithromycin 250 Mg Tab) 500 mg PO DAILY CHENG Stop: 10/19/20 15:14 Last Admin: 10/18/20 09:23 Dose: 500 mg Documented by: Benzonatate (Benzonatate 100 Mg Capsule) 100 mg PO TID PRN PRN Reason: cough Stop: 11/14/20 20:59 Last Admin: 10/16/20 08:09 Dose: 100 mg Documented by: Calcium Acetate (Calcium Acetate 667 Mg Cap/Tab) 1,334 mg PO AC CHENG Stop: 11/13/20 07:29 Last Admin: 10/18/20 14:44 Dose: 1,334 mg Documented by: Calcium Acetate (Calcium Acetate 667 Mg Cap/Tab) 1,334 mg PO PRN PRN PRN Reason: WITH SNACKS Stop: 11/13/20 01:20 Calcium Carbonate (Calcium Carbonate 500 Mg Chewable Tab) 250 mg PO DAILY [facility] Stop: 11/13/20 08:59 Last Admin: 10/18/20 09:22 Dose: 250 mg Documented by: Dextrose (Dextrose 50% 50 Ml Syringe) 25 - 50 ml IV UD PRN; Protocol PRN Reason: Hypoglycemia Protocol Stop: 11/12/20 23:24 Glucagon (Glucagon For Inj 1 Mg Vial) 1 mg SQ UD PRN; Protocol PRN Reason: Hypoglycemia Protocol Stop: 11/12/20 23:24 Glucose (Glucose 10 Tabs/Tube) 4 - 8 tabs PO UD PRN; Protocol PRN Reason: Hypoglycemia Protocol Stop: 11/12/20 23:24 Glucose (Glucose 40% Gel 15 Gm Tube) 15 - 30 gm PO UD PRN; Protocol PRN Reason: Hypoglycemia Protocol Stop: 11/12/20 23:24 Guaifenesin/Dextromethorphan (Guaifenesin/Dextrom Syrup 100mg/10mg 5ml Udc) 5 ml PO Q6H PRN PRN Reason: Cough Stop: 11/15/20 15:04 Last Admin: 10/17/20 21:30 Dose: 5 ml Documented by: Hydralazine HCl (Hydralazine Hcl 25 Mg Tab) 25 mg PO BID [facility] Stop: 11/12/20 23:24 Last Admin: 10/18/20 14:44 Dose: 25 mg Documented by: Promethazine HCl 12.5 mg/ (Sodium Chloride) 50.5 mls @ 202 mls/hr IV Q6H PRN PRN Reason: Nausea And Vomiting Stop: 11/12/20 23:24 Insulin Aspart (Insulin Aspart 100 Units/Ml 3 Ml Pen) 0 units SC AC@0730,1130,1630 [facility] Stop: 11/15/20 16:29 Last Admin: 10/18/20 15:14 Dose: 18 units Documented by: Insulin Aspart (Insulin Aspart 100 Units/Ml 3 Ml Pen) 0 units SC 0200,2100 [facility] Stop: 11/16/20 20:59 Insulin Glargine (Insulin Glargine Solostar 100 Units/Ml 3 Ml Pen) 30 units SC BID [facility] Stop: 11/17/20 20:59 Ipratropium [place] (Ipratropium [place] Neb Soln 0.02% 2.5 Ml Vial) 0.5 mg INH Q6R PRN PRN Reason: Shortness Of Breath Or Wheezing Stop: 11/13/20 00:59 Levalbuterol HCl (Levalbuterol 1.25mg/0.5ml Neb) 1.25 mg INH Q6R PRN PRN Reason: Shortness Of Breath Or Wheezing Stop: 11/13/20 00:59 Lisinopril (Lisinopril 40 Mg Tab) 40 mg PO HS [facility] Stop: 11/12/20 23:24 Last Admin: 10/17/20 20:58 Dose: 40 mg Documented by: Lorazepam (Lorazepam 1 Mg Tab) 1 mg PO DAILY PRN PRN Reason: Anxiety Stop: 11/13/20 10:15 Last Admin: 10/18/20 09:26 Dose: 1 mg Documented by: Menthol (Cough Drop (Sugar Free) [place] 24 [place]/1 Box) 1 [place] BU[place]AL PRN PRN PRN Reason: Cough Stop: 11/16/20 04:30 Metoprolol Succinate (Metoprolol Succ 50mg Ext Rel Tab) 50 mg PO BID [facility] Stop: 11/12/20 23:24 Last Admin: 10/18/20 14:43 Dose: 50 mg Documented by: Miscellaneous (Ferric Citrate [Auryxia]: Order Awaiting Action) 1 ea N/A QS [facility] Stop: 11/13/20 07:59 Last Admin: 10/18/20 14:43 Dose: Not Given Documented by: Miscellaneous (Carbohydrates For Hypoglycemia ) 15 - 30 gm PO UD PRN PRN Reason: Hypoglycemia Protocol Stop: 11/12/20 23:24 Last Admin: 10/14/20 15:23 Dose: 15 gm Documented by: Miscellaneous Information (Pharmacy Glycemic Mgmt Consult) 1 ea N/A UD PRN PRN Reason: Consult Stop: 11/13/20 07:50 Nitroglycerin (Nitroglycerin Sl 0.4 Mg/Tab Tab) 0.4 mg SL UD PRN PRN Reason: Chest Pain Stop: 11/12/20 23:24 Oxycodone HCl (Oxycodone Hcl Ir 5 Mg Tab (Immediate Release)) 5 mg PO Q4H PRN PRN Reason: Pain Stop: 10/27/20 23:24 Prednisone (Prednisone 20 Mg Tab) 20 mg PO DAILY CHENG Stop: 10/22/20 08:59 Torsemide (Torsemide 100 Mg Tab) 100 mg PO DAILY CHENG Stop: 11/13/20 08:59 Last Admin: 10/18/20 14:44 Dose: 100 mg Documented by: Trazodone HCl (Trazodone Hcl 50 Mg Tab) 50 mg PO HS PRN PRN Reason: insomnia Stop: 11/17/20 20:59 Last Admin: 10/17/20 23:41 Dose: 50 mg Documented by: Vitamin B Complex/Folic Acid (Nephrocaps) 1 cap PO DAILY CHENG Stop: 11/13/20 08:59 Last Admin: 10/18/20 09:22 Dose: 1 cap Documented by: (1) Respiratory failure, acute and chronic Respiratory failure complication: hypoxia Qualified Code(s): J96.21 - Acute and chronic respiratory failure with hypoxia
[2020-10-18] MEDS ORDERED: INSULIN ASPART 100 UNITS/ML 3 ML PEN SC SCH (21:00)
[2020-10-18] MEDS ORDERED: INSULIN GLARGINE SOLOSTAR 100 UNITS/ML 3 ML PEN SC SCH (21:00)
--- NOTE | 2020-10-19 08:15 | Discharge Summary ---
Date of Service October 19, 2020 Admission HPI Per Admitting Provider History obtained from patient and records. Medical history significant for chronic systolic heart failure secondary to nonischemic cardiomyopathy as per records (EF 45 to 49%, TTE 2020), chronic respiratory failure, chronic hemoptysis, pulmonary sarcoidosis, DM1, hypertension, hyperlipidemia, ESRD on HD, history alcohol-related seizures as per records, chronic anemia (recent outpatient hemoglobin 8-9 ), past tobacco abuse. Last confinement [facility] 2011 for DKA. Last confinement [facility] July 2020 for respiratory failure, volume overload, possible ACS, and hemoptysis. TTE showed wall abnormalities in the apical, inferior, posterior and lateral blake EF of 45 to 49%. Cardiac catheterization showed patent coronary arteries with mild luminal irregularity. Patient discharged on aspirin and statin recommendations from Cardiology. Pulmonology was also consulted during confinement for patient's hemoptysis. CT chest during confinement showed diffuse groundglass opacities throughout both lungs differential diagnosis includes edema versus viral infection. Mediastinal lymphadenopathy and coronary atherosclerosis. Hemoptysis attributed to pulmonary edema and bronchoscopy not indicated during confinement as hemoptysis had resolved as per documentation. Outpatient Pulmonology consultation recommended. Persistent shortness of breath, especially on exertion, intermittent hemoptysis since [facility] discharge as per patient. Patient admits to coughing with meals/water intake if not careful. No unusual chest pain, no unusual weight gain as per patient. Patient compliant with outpatient [facility] dialysis appointments. Patient seen by [facility] outpatient 3 weeks ago for intermittent hemoptysis symptoms. Patient noted to be hypoxemic O2 sats 80s at time of visit. Broad differential including cardiogenic pulmonary edema, atypical bacterial pneumonia as per documentation. Mediastinal adenopathy increased on CT as per note. Concern for development of cardiac sarcoidosis. 911 Operator recommended supplemental O2 at home with [address] chest early November 2020, full PFTs including DLCO, lung volumes, spirometry. Home O2 supplies recommended by radiology interventional physician only received by patient today at home. At outpatient dialysis today, patient pulse ox noted to be 80s on room air. Patient noted to be pale and feeling like he was going to pass out. Patient denies chest pain. Complaining of hemoptysis without fever and chills. Dark stools attributed to iron as per patient. Patient denies abdominal pain. Patient directed to ER for evaluation by insert operator machine precision etcher. MEDICAL HISTORY: As above. SURGICAL HISTORY: LN biopsy. Mediastinoscopy, vitrectomy FAMILY HISTORY: DM, hypertension PERSONAL SOCIAL HISTORY: Past tobacco abuse, no recent EtOH intake, disabled Admission Exam Per Admitting Provider Physical Exam: GENERAL: Comfortable, obese, minimal respiratory distress SKIN: Pallor, multiple skin tattoos, warm HEENT: Pale palpebral conjunctivae, no ptosis, dry buccal mucosa, O2 mask in place NECK : Supple, short neck, no tenderness CHEST : Decreased breath sounds, no tenderness HEART : RRR, no obvious murmurs ABDOMEN: Some distention, nontender RECTAL : Refused EXTREMITIES : Minimal LE swelling, no LE tenderness, no other conspicuous deformities noted NEUROLOGIC : Coherent, no facial asymmetry, no other gross focality Principal Diagnosis Respiratory failure Acute and Chronic,ESRD on HD Discharge Exam Constitutional well developed, well nourished, + ill appearing and + obese Eyes PERRL, conjunctivae normal, anicteric sclerae ENMT external ear and nose normal, oropharynx normal Neck trachea midline, no thyromegaly Respiratory no respiratory distress Auscultation: + diminished lung sounds and + crackles (Minimal bibasilar crackles) Cardiovascular Rate/Rhythm: regular rate and regular rhythm Heart Sounds: no murmur Extremities: + edema (Trace edema bilaterally) Gastrointestinal (Abdomen) Inspection/Auscultation: + abdomen distended; + abnormal bowel sounds Percussion/Palpation: abdomen soft; abdomen nontender Psychiatric A+Ox3, euthymic affect Lymphatic no cervical or axillary lymphadenopathy Discharge Data Allergies Allergy/AdvReac Type Severity Reaction Status Date / Time No Known Allergies Allergy Unknown Verified 10/13/20 18:20 Consultations 10/13/20 18:48 ED Decision to Admit Stat 10/13/20 23:25 Consult Nephrology Routine 10/14/20 08:23 Consult Pulmonology Routine Ordered Studies 10/13/20 19:08 US venous doppler LE BI Stat 10/13/20 19:12 CT chest diagnostic wo con Stat Hospital Course (1) Respiratory failure, acute and chronic: Secondary to Volume overload, ESRD, chronic systolic heart failure secondary to nonischemic cardiomyopathy as per records (EF 45 to 49%, TTE 2020) Possible Pneumonia/Bronchitis Possible pulmonary sarcoidosis? There was a questionable history of sarcoidosis but has not been biopsy-proven Chronic respiratory failure on Home O2 1-2L NC Presented with progressive dyspnea, with occasional hemoptysis Has been on oral prednisone and azithromycin Clinically he is back to his baseline following dialysis He will be discharged home tomorrow -- CT chest: 1. Diffuse interlobular septal thickening with small bilateral pleural effusions and mild cardiomegaly. This likely represents interstitial pulmonary edema. 2. There are near diffuse groundglass airspace opacities most pronounced within the base of the right lower lobe. This likely represents an alveolar component of the pulmonary edema. A superimposed pneumonia cannot be excluded. 3. There are few small scattered nodular densities within the lungs measuring up to 6 mm. These are nonspecific but may correspond to the patient's history of sarcoidosis. A [address] follow-up is recommended to ensure stability/resolution. 4. Mild mediastinal and bilateral hilar lymphadenopathy. This can be seen in the setting of sarcoidosis or chronic pulmonary edema. This bears watching on future examinations to ensure stability. End-stage renal disease on hemodialysis We will continue with HD Appreciate nephrology input and recommendation Continue Torsemide Possible sarcoidosis Presented with respiratory failure as above Appreciate pulmonary input and recommendation Rrecommend Prednisone taper - prednisone 40 mg for 3 days followed by 20 mg for 2 days and then stop. Anjel daniels for cough Outpatient work up for Sarcoidosis, Mediastinal Lymphadenopathy Hemoptysis -- seems to have resolved cough also improving bronchoscopy not recommended at this point per Pulm outpatient work up continue to ff up with [facility] 911 Operator Hemoptysis resolved HTN Continue Amlodipine, Lisinopril, Metoprolol Troponin elevation secondary to illness in the setting of abnormal kidney function Doubt any ACS Acute on chronic anemia, hemoglobin drop from baseline secondary to hemoptysis Hg 7.9 to 7.6 Transfuse for < 7 Aspirin on hold in light of hemoptysis DM1, reasonable control as of recent hemoglobin A1c of 7.01 August 2020 Pharm Glyc Control Hyperlipidemia on statin Rx Past tobacco abuse DVT prophylaxis. SCDs Re: Hemoptysis Full code Disposition pending anticipate d/c home when medically stable plan of care discussed with patient in detail and at length all questions answered he is understanding, agreeable, comfortable with the plan of care Total Time Total Time Spent Total Time Spent (In Minutes): 20 Total Time Includes: Examination of the Patient, Discharge Planning, Medication Reconciliation and Communication With Other Providers Discharge Plan Discharge Items Patient Disposition: Against Medical Advice Reason For Visit: RESP FAILURE, TROP ELEV Follow-up/Referrals: Jaime Lovelace MD [Primary Care Provider] - Stand-Alone Forms: [facility], Smoking Cessation Medications and DC Order Prescriptions: New prednisone 20 mg Tablet 20 mg PO DAILY 3 Days Qty: 3 RF: 0 Continued Lantus Solostar U-100 Insulin 100 unit/mL (3 mL) Insulin Pen 56 unit SUBCUT HS RF: 0 calcium acetate(phosphat bind) 667 mg Tablet 667 mg PO UD RF: 0 amlodipine 10 mg Tablet 10 mg PO HS RF: 0 lisinopril 40 mg Tablet 40 mg PO HS RF: 0 hydralazine 25 mg Tablet 25 mg PO BID RF: 0 calcium carbonate [Tums] 200 mg calcium (500 mg) Tablet,Chewable 200 mg PO DAILY RF: 0 Myrna-Bello 0.8 mg Tablet 1 tab PO DAILY RF: 0 albuterol sulfate 90 mcg/actuation HFA aerosol inhaler 2 puff INHALATION Q6 PRN (Reason: Shortness Of Breath Or Wheezing) RF: 0 atorvastatin 40 mg tablet 40 mg PO DAILY RF: 0 lorazepam 1 mg tablet 1 mg PO UD RF: 0 insulin aspart U-100 [Novolog Flexpen U-100 Insulin] 100 unit/mL (3 mL) insulin pen 16 unit SUBCUT AC RF: 0 metoprolol succinate 50 mg tablet extended release 24 hr 50 mg PO BID RF: 0 torsemide 100 mg tablet 100 mg PO DAILY RF: 0 Auryxia 210 mg iron tablet 1 tab PO TIDM RF: 0 Discharge Orders: Left Against Medical Advice (Routine); Ordered 10/18/20 Ordered By: Aren Kate Admission Data Admit Date/Time: 10/13/20 21:02 Attending Provider: Aren Kate Admit Provider: Donovan Tam Primary Care Provider: Jaime Lovelace Other Providers: Donovan Tam ; Nicki Thomson ; Berny Maurice ; Suresh Pathak Other Interventions: Discharge Summary Assessment (RN) Last Done: 10/18/20 17:20
[2020-10-19] MEDS ORDERED: predniSONE 20 MG TAB PO SCH (09:00)
--- NOTE | 2020-11-01 06:42 | Coding Query ---
CODING QUERY To promote full compliance with coding requirements relating to patient care, provider participation is requested in all cases of scalp treatment operator uncertainty. Please assist us with the question(s) below: Coding Question(s): Please clarify the etiology of Systolic Heart Failure below: (+ ) CHF due to Cardiomyopathy ( ) CHF due to Hypertension ( ) Other Please Explain: In the progress note::Secondary to Volume overload, ESRD, chronic systolic heart failure secondary to nonischemic cardiomyopathy as per records (EF 45 to 49%, TTE 2020) Pt signed out AMA Thank you Pavel Domingo Principal Diagnosis: "that condition established after study, to be chiefly responsible for occasioning the admission of the patient to the hospital for care." Co-Existing Principal Diagnosis: "when two or more diagnoses equally meet the criteria for principal diagnosis as determined by the circumstances of admission, diagnostic work up, and/or therapy provided, and the Alphabetic Index, Tabular List, or another coding guideline does not provide sequencing direction, any one of the diagnoses may be sequenced first." "When the physician has documented what appears to be a current diagnosis in the body of the record, but has not included the diagnosis in the final diagnostic statement, the physician should be asked whether the diagnosis should be added." (Source Coding Clinic 2 QTR90. p3-4) DARIN
== END 2020-10-18 17:21 | disposition left against medical advice (07) | DRG 314 ==
LOC: ED 15:45 → 2E 21:02 → SUATTDRO 21:02 → 2E 22:12

== ENCOUNTER 2020-12-26 13:02 | Observation (INO) ==
--- NOTE | 2020-12-26 13:52 | Emergency Department Note ---
Impression & Plan Pulmonary edema, Hypoxia, Renal failure, acute on chronic ED Provider Note NAME: JORDAN PHAN AGE: 40 SEX: M : 1980 ARRIVES VIA: Walk-In INFORMANT: Patient, ED PROVIDER(S): Zeferino Gill DO CHIEF COMPLAINT: Shortness of breath HPI: The patient is a 40-year-old male who presented to the emergency department for an evaluation of shortness of breath. The patient describes shortness of breath with exertion. He states his symptoms significantly worsened over the course the last few days. The patient states that he normally does wear oxygen. He put on his supplemental oxygen but noticed his oxygen saturation was still very low and he reports it was in the 70s. He denies having any chest pain. He has had no weight gain. He does have a history of peritoneal dialysis and has been compliant with his outpatient medications as well as his dialysis. He does note some lower extremity swelling and pain. He does not have a history of DVT. The patient did not see his family doctor today. He presented to the emergency department because of the ongoing shortness of breath. He states it is worsened by exertion as well as by lying flat. He does not admit to having a history of pulmonary embolism in the past. He does not take blood thinners. ROS: See above HPI for pertinent positives & negatives. A total of 10 systems reviewed and were otherwise negative. PAST MEDICAL HISTORY: See Below PAST SURGICAL HISTORY: See Below FAMILY HISTORY: See Below SOCIAL HISTORY: See Below HOME MEDICATIONS: See Below ALLERGIES: See Below VITALS: See Below PHYSICAL EXAMINATION: GENERAL: Patient is awake alert in no acute distress patient is resting comfortably and showing no signs of anxiety EYES: The conjunctivae are clear. The pupils are round and reactive. EARS, NOSE, MOUTH AND THROAT: The nose is without any evidence of any deformity. NECK: The neck is nontender and supple. RESPIRATORY: Diminished breath sounds are noted throughout. There was rales at both bases. There was no conversational dyspnea or tachypnea noted. CARDIOVASCULAR: Regular rate and rhythm noted there no murmurs rubs or gallops normal S1 normal S2. GASTROINTESTINAL: The abdomen is soft. Abdomen is nontender. MUSCULOSKELETAL/EXTREMITIES: There is no evidence of gross deformity full range of motion is noted in the hips and shoulders. SKIN: Dry. Trace pedal edema was noted bilaterally. NEUROLOGIC: Patient is awake alert and oriented x3 strength is symmetric patellar reflexes are 2+ bilaterally MEDICAL DECISION MAKING: The patient is a 40-year-old male who presented to the emergency department for an evaluation of difficulty breathing. The patient does use chronic oxygen. He had to use more oxygen than usual. The patient is feeling much better at rest. I discussed the patient's laboratory and radiographic studies with him. He was treated with IV Lasix in the emergency department. Given his elevation in creatinine compared to baseline I did discuss his case with the on-call [facility] hospitalist. They have agreed to evaluate the patient in the emergency department for further management and disposition. The patient was reevaluated multiple times. He was feeling much better on subsequent reevaluation. He may require further evaluation by his medical practice manager as well. Triage Nursing notes reviewed. Prior medical records reviewed Vital Signs: reviewed and remarkable for elevated blood pressure and relative hypoxia. Differential diagnosis: Reactive airway disease, pneumonia, pneumothorax, COPD, CHF, infections, cardiac ischemia, pulmonary embolism, musculoskeletal, gastrointestinal, as well as other pathologies. ER treatment provided: See below Diagnostics interpreted by me: ECG: EKG was obtained in the emergency department. My interpretation is normal sinus rhythm at 84 bpm. There was no ectopy. There was no acute ST segment abnormalities noted. This was compared to a tracing from October 172020. No s ignificant changes were noted. Cardiac Monitoring: An order was placed for continuous cardiac monitoring. The monitor shows a rate of 79 bpm with sinus rhythm. Laboratory studies: As stated above and show below. Imaging studies: See below Consultation(s): I discussed this case with Coty Galarza who is on-call for the [facility] talist group. They will evaluate the patient in the emergency department. Past Med/Surg History Medical History A-V fistula right Abnormal CT scan of lung Anemia Chronic respiratory failure with hypoxia Diabetes IDDM (Type 1 per records) Dyslipidemia End stage renal disease diaylsis - M,W,F ([place], [place]) Heart failure with reduced ejection fraction Hypertension Obesity Sarcoidosis per records Seizure disorder remote hx (2007) in setting of hypoglycemia (?ETOH related per records), no issues since Surgical History History of vascular access device permacath insertion Hx of biopsy kidney bx PONV (postoperative nausea and vomiting) Status post creation of arteriovenous fistula right: 07/15/17: MAC sedation at [facility] Family History Father Hypertension Social History Smoking Status: Unknown if ever smoked Second Hand Exposure: No; Do You Dip or Chew Tobacco: No; Tobacco Cessation Education Requested by Patient: No Hx Alcohol Use: No Hx Substance Use: No Preferred Language: Monegasque Communication Ability: Effective Audio Recording Engineer Required: No Beliefs That Will Affect Care: None Current Living Situation: Other Current Living Situation Comment: 2story house with roommates. Other Information That Helps Us Care for You: No Feels Safe at Home: Yes Safety Concerns: Feels Safe At This Time Assistive Devices: None Allergies Allergies Allergy/AdvReac Type Severity Reaction Status Date / Time No Known Allergies Allergy Unknown Verified 12/26/20 13:58 Home Meds Home Medications Medication Instructions Recorded Confirmed insulin glargine 100 unit/mL (3 56 unit SUBCUT DAILY 05/24/19 12/26/20 mL) subcutaneous pen (Lantus Solostar U-100 Insulin) amlodipine 10 mg tablet 10 mg PO HS 06/11/19 12/26/20 calcium acetate(phosphat bind) 667 1,334 mg PO UD 06/11/19 12/26/20 mg tablet lisinopril 40 mg tablet 40 mg PO HS 06/11/19 12/26/20 calcium carbonate 200 mg calcium 200 mg PO DAILY 02/03/20 12/26/20 (500 mg) chewable tablet (Tums) hydralazine 25 mg tablet 25 mg PO BID 02/03/20 12/26/20 vitamin B complex-vitamin C-folic 1 tab PO DAILY 02/03/20 12/26/20 acid 0.8 mg tablet (Myrna-Bello) albuterol sulfate 90 mcg/actuation 2 puff INHALATION Q6 PRN 10/13/20 12/26/20 aerosol inhaler atorvastatin 40 mg tablet 40 mg PO PM 10/13/20 12/26/20 insulin aspart U-100 100 unit/mL 16 unit SUBCUT AC 10/13/20 12/26/20 (3 mL) subcutaneous pen (Novolog Flexpen U-100 Insulin aspart) lorazepam 1 mg tablet 1 mg PO UD 10/13/20 12/26/20 metoprolol succinate 50 mg 50 mg PO BID 10/13/20 12/26/20 tablet,extended release 24 hr torsemide 100 mg tablet 100 mg PO DAILY 10/13/20 12/26/20 aspirin 81 mg tablet 81 mg PO DAILY 12/26/20 12/26/20 calcium acetate(phosphat bind) 667 667 mg PO TID 12/26/20 12/26/20 mg tablet trazodone 50 mg tablet 50 mg PO HS 12/26/20 12/26/20 Results & Data (ED) Vital Signs Vital Signs - 24 hr 12/26/20 13:11 12/26/20 13:30 12/26/20 13:35 Temperature 36.4 C L Temperature Source Temporal Artery Scan Pulse Rate 84 77 79 Pulse Rate [Apical] 96 H Pulse Rate from SpO2 Sensor 78 Respiratory Rate 20 20 21 Respiratory Effort / Characteristics Non-Labored Non-Labored Spontaneous Respiratory Depth Normal Normal Respiratory Pattern Regular Regular Blood Pressure 158/88 H 179/94 H Blood Pressure [Left Arm] 179/94 H Blood Pressure Mean 111 122 Blood Pressure Mean [Left Arm] 122 Blood Pressure Position Sitting Pulse Oximetry 87 L 98 94 Oxygen Delivery Method Nasal Cannula Nasal Cannula Oxygen Flow Rate 3 3 Sepsis Recent Fever Within 48 Hours No Sepsis New/Unexplained Change in Mental Status No Sepsis Action Taken by Nursing No Action Required 12/26/20 14:01 12/26/20 14:30 12/26/20 15:00 Temperature Temperature Source Pulse Rate 75 74 80 Pulse Rate [Apical] Pulse Rate from SpO2 Sensor 75 74 80 Respiratory Rate 20 19 18 Respiratory Effort / Characteristics Respiratory Depth Respiratory Pattern Blood Pressure 111/87 Blood Pressure [Left Arm] Blood Pressure Mean 95 Blood Pressure Mean [Left Arm] Blood Pressure Position Pulse Oximetry 94 94 98 Oxygen Delivery Method Oxygen Flow Rate Sepsis Recent Fever Within 48 Hours Sepsis New/Unexplained Change in Mental Status Sepsis Action Taken by Nursing 12/26/20 15:30 12/26/20 16:00 Temperature Temperature Source Pulse Rate 81 82 Pulse Rate [Apical] Pulse Rate from SpO2 Sensor 80 Respiratory Rate 23 24 Respiratory Effort / Characteristics Respiratory Depth Respiratory Pattern Blood Pressure 138/85 Blood Pressure [Left Arm] Blood Pressure Mean 102 Blood Pressure Mean [Left Arm] Blood Pressure Position Pulse Oximetry 95 Oxygen Delivery Method Oxygen Flow Rate Sepsis Recent Fever Within 48 Hours Sepsis New/Unexplained Change in Mental Status Sepsis Action Taken by [facility] Medications Current Medication List: was personally reviewed by me Laboratory Data Attestation: I reviewed the patient's lab results. Result diagrams: 12/27/20 08:06 12/27/20 08:06 Lab Results 12/26/20 12/26/20 12/26/20 Range/Units 13:55 13:55 13:55 WBC 10.41 (4.8-10.8) K/uL RBC 3.05 L (4.7-6.1) M/uL Hgb 9.0 L (14.0-18.0) g/dL Hct 27.3 L (42-52) % MCV 89.5 (80-100) fL MCH 29.5 (25-34) pg MCHC 33.0 (32-36) g/dL RDW Std Deviation 53.3 H (36.4-46.3) fL RDW Coeff of Selin 16.4 H (11.5-14.5) % Plt Count 245 (130-400) K/uL MPV 8.7 (7.4-10.4) fL Immature Gran % (Auto) 1.0 % Neut % (Auto) 77.9 % Lymph % (Auto) 11.4 % [place] % (Auto) 4.2 % Eos % (Auto) 5.1 % Baso % (Auto) 0.4 % Neut # (Auto) 8.11 H (1.4-6.5) K/uL Lymph # (Auto) 1.19 L (1.2-3.4) K/uL [place] # (Auto) 0.44 (0.11-0.59) K/uL Eos # (Auto) 0.53 H (0-0.5) K/uL Baso # (Auto) 0.04 (0-0.2) K/uL Immature Gran # (Auto) 0.10 H (0.00-0.02) K/uL Absolute Nucleated RBC 0.03 H (0-0) K/uL Nucleated RBC % (auto) 0.3 % PT 9.5 (9.0-12.0) Seconds INR 0.9 (0.9-1.1) APTT 23.4 (21.0-31.0) Seconds PTT Ratio 0.9 VBG pH (7.36-7.41) VBG pCO2 (38-50) mmHg VBG pO2 mmHg VBG HCO3 mmol/L VBG O2 Saturation % VBG Base Excess mEq/L Barometric Pressure mm/Hg Sodium 138 (136-145) mmol/L Potassium 3.9 (3.5-5.1) mmol/L Chloride 100 (98-107) mmol/L Carbon Dioxide 31 (21-32) mmol/L Anion Gap 7.0 (3-11) BUN 23 H (7-18) mg/dl Creatinine 7.30 H* (0.6-1.4) mg/dl Est Cr Clr Drug Dosing 16.6 ml/min Est GFR ( Amer) 10.0 ml/min Est GFR (Non-Af Amer) 8.6 ml/min BUN/Creatinine Ratio 3.1 L (10-20) Glucose 67 L (70-99) mg/dl Calcium 9.2 (8.5-10.1) mg/dl Magnesium 2.4 (1.8-2.4) mg/dl Total Bilirubin 1.1 H (0.2-1) mg/dl AST 10 L (15-37) U/L ALT 18 (12-78) U/L Alkaline Phosphatase 70 (45-117) U/L Troponin I < 0.015 (0-0.045) ng/ml NT-Pro-B Natriuret Pep > 03276 H (0-450) pg/ml Total Protein 7.1 (6.4-8.2) gm/dl Albumin 3.7 (3.4-5.0) gm/dl Globulin 3.4 (2.5-4.0) gm/dl Albumin/Globulin Ratio 1.1 (0.9-2) COVID-19 Eval Order SARS-CoV-2 (PCR) (Negative) 12/26/20 12/26/20 12/26/20 Range/Units 13:55 14:10 14:10 WBC (4.8-10.8) K/uL RBC (4.7-6.1) M/uL Hgb (14.0-18.0) g/dL Hct (42-52) % MCV (80-100) fL MCH (25-34) pg MCHC (32-36) g/dL RDW Std Deviation (36.4-46.3) fL RDW Coeff of Selin (11.5-14.5) % Plt Count (130-400) K/uL MPV (7.4-10.4) fL Immature Gran % (Auto) % Neut % (Auto) % Lymph % (Auto) % [place] % (Auto) % Eos % (Auto) % Baso % (Auto) % Neut # (Auto) (1.4-6.5) K/uL Lymph # (Auto) (1.2-3.4) K/uL [place] # (Auto) (0.11-0.59) K/uL Eos # (Auto) (0-0.5) K/uL Baso # (Auto) (0-0.2) K/uL Immature Gran # (Auto) (0.00-0.02) K/uL Absolute Nucleated RBC (0-0) K/uL Nucleated RBC % (auto) % PT (9.0-12.0) Seconds INR (0.9-1.1) APTT (21.0-31.0) Seconds PTT Ratio VBG pH 7.43 H (7.36-7.41) VBG pCO2 49 (38-50) mmHg VBG pO2 39 mmHg VBG HCO3 32 mmol/L VBG O2 Saturation 70.3 % VBG Base Excess 6.8 mEq/L Barometric Pressure 734.6 mm/Hg Sodium (136-145) mmol/L Potassium (3.5-5.1) mmol/L Chloride (98-107) mmol/L Carbon Dioxide (21-32) mmol/L Anion Gap (3-11) BUN (7-18) mg/dl Creatinine (0.6-1.4) mg/dl Est Cr Clr Drug Dosing ml/min Est GFR ( Amer) ml/min Est GFR (Non-Af Amer) ml/min BUN/Creatinine Ratio (10-20) Glucose (70-99) mg/dl Calcium (8.5-10.1) mg/dl Magnesium (1.8-2.4) mg/dl Total Bilirubin (0.2-1) mg/dl AST (15-37) U/L ALT (12-78) U/L Alkaline Phosphatase (45-117) U/L Troponin I (0-0.045) ng/ml NT-Pro-B Natriuret Pep (0-450) pg/ml Total Protein (6.4-8.2) gm/dl Albumin (3.4-5.0) gm/dl Globulin (2.5-4.0) gm/dl Albumin/Globulin Ratio (0.9-2) COVID-19 Eval Order Covid19 at [facility] SARS-CoV-2 (PCR) NEGATIVE (Negative) Administered Medications Amlodipine Besylate (Amlodipine Besylate 5 Mg Tab) 10 mg PO HS CHENG Stop: 01/25/21 20:59 Last Admin: 12/26/20 22:20 Dose: 10 mg Documented by: [id number] Aspirin (Aspirin 81 Mg Ectab) 81 mg PO DAILY CHENG Stop: 01/26/21 08:59 Last Admin: 12/27/20 07:31 Dose: 81 mg Documented by: [id number] Atorvastatin Calcium (Atorvastatin 40 Mg Tab) 40 mg PO PM CHENG Stop: 01/25/21 20:59 Last Admin: 12/26/20 22:19 Dose: 40 mg Documented by: [id number] Calcium Acetate (Calcium Acetate 667 Mg Cap/Tab) 667 mg PO TIDM CHENG Stop: 01/25/21 20:59 Last Admin: 12/27/20 07:31 Dose: 667 mg Documented by: [id number] Admin: 12/26/20 22:20 Dose: 667 mg Documented by: [id number] Calcium Carbonate (Calcium Carbonate 500 Mg Chewable Tab) 500 mg PO DAILY CHENG Stop: 01/26/21 08:59 Last Admin: 12/27/20 07:31 Dose: 500 mg Documented by: [id number] Epoetin Terrell (Epoetin Terrell 20,000 Units/Ml Vial) 20,000 units IV 0800 [facility] Stop: 12/27/20 14:00 Last Admin: 12/27/20 11:15 Dose: 20,000 units Documented by: [id number] Heparin Sodium (Porcine) (Heparin Sod 5,000 Unit/0.5 Ml Vial) 5,000 units SQ Q8 CHENG Stop: 01/25/21 21:59 Last Admin: 12/27/20 06:33 Dose: 5,000 units Documented by: [id number] Admin: 12/26/20 22:21 Dose: 5,000 units Documented by: [id number] Heparin Sodium (Porcine) (Heparin Sod (Porcine) 1000 Unit/Ml) 1,000 units IV 0800 [facility] Stop: 12/27/20 14:00 Last Admin: 12/27/20 10:49 Dose: Not Given Documented by: [id number] Hydralazine HCl (Hydralazine Hcl 25 Mg Tab) 25 mg PO BID CHENG Stop: 01/26/21 08:59 Last Admin: 12/27/20 07:31 Dose: 25 mg Documented by: [id number] Insulin Aspart (Insulin Aspart 100 Units/Ml 3 Ml Pen) 0 units SC ACHS [facility] Stop: 01/25/21 21:14 Last Admin: 12/27/20 07:30 Dose: 7 units Documented by: [id number] Cosigned by: [id number] Admin: 12/26/20 22:22 Dose: 8 units Documented by: [id number] Cosigned by: [id number] Insulin Glargine (Insulin Glargine Solostar 100 Units/Ml 3 Ml Pen) 0 - 56 units SC DAILY CHENG Stop: 01/26/21 08:59 Last Admin: 12/27/20 07:30 Dose: Not Given Documented by: [id number] Lisinopril (Lisinopril 40 Mg Tab) 40 mg PO HS [facility] Stop: 01/25/21 20:59 Last Admin: 12/26/20 22:20 Dose: 40 mg Documented by: [id number] Lorazepam (Lorazepam 1 Mg Tab) 1 mg PO UD PRN PRN Reason: BEFORE DIALYSIS Stop: 01/25/21 20:59 Last Admin: 12/27/20 08:25 Dose: 1 mg Documented by: [id number] Metoprolol Succinate (Metoprolol Succ 50mg Ext Rel Tab) 50 mg PO BID [facility] Stop: 01/25/21 21:14 Last Admin: 12/27/20 07:31 Dose: 50 mg Documented by: [id number] Admin: 12/26/20 22:21 Dose: 50 mg Documented by: [id number] Trazodone HCl (Trazodone Hcl 50 Mg Tab) 50 mg PO HS [facility] Stop: 01/25/21 20:59 Last Admin: 12/26/20 22:19 Dose: 50 mg Documented by: [id number] Vitamin B Complex/Folic Acid (Nephrocaps) 1 cap PO DAILY [facility]ENG Stop: 01/26/21 08:59 Last Admin: 12/27/20 07:31 Dose: 1 cap Documented by: [id number] Discontinued Medications Acetaminophen (Acetaminophen 500 Mg Tab) 1,000 mg PO NOW STA Stop: 12/26/20 18:24 Last Admin: 12/26/20 19:17 Dose: 1,000 mg Documented by: [id number] Furosemide (Furosemide 40 Mg/4 Ml Vial) 40 mg IV NOW STA Stop: 12/26/20 15:45 Last Admin: 12/26/20 15:58 Dose: 40 mg Documented by: [id number] Furosemide (Furosemide 40 Mg/4 Ml Vial) 60 mg IV NOW STA Stop: 12/26/20 17:39 Last Admin: 12/26/20 19:18 Dose: 60 mg Documented by: [id number] Heparin Sodium (Porcine) (Heparin Sod (Porcine) 1000 Unit/Ml) 400 units IV Q1H [facility]ENG Stop: 12/27/20 11:01 Last Admin: 12/27/20 10:50 Dose: Not Given Documented by: [id number] Admin: 12/27/20 10:49 Dose: Not Given Documented by: [id number] Admin: 12/27/20 10:49 Dose: Not Given Documented by: [id number] Metolazone (Metolazone 5 Mg Tablet) 5 mg PO ONE ONE Stop: 12/26/20 21:16 Last Admin: 12/26/20 22:20 Dose: 5 mg Documented by: [id number] Imaging Data Radiologist's Impression: Chest X-Ray 12/26/20 13:27 XR chest 1V portable CLINICAL HISTORY: Dyspnea COMPARISON STUDY: Chest radiograph October 18, 2020. Chest CT October 13, 2020. FINDINGS: Lung volumes are normal. There is no pneumothorax or pleural fusion. Moderate cardiomegaly is noted. There is pulmonary vascular congestion with possible mild pulmonary edema. No consolidation is identified. Old right cl avicular fracture is noted. IMPRESSION: Cardiomegaly with pulmonary vascular congestion and suspected mild pulmonary edema. ACT 112: Negative or not required by law. Electronically signed by: Silverio Krishnamurthy M.D. 12/26/2020 1:49 PM Discharge Plan Visit Data Chief Complaint: Shortness of Breath/Dyspnea Stated Complaint: SOB, LOW O2 R REF ED Provider: Zeferino Gill Discharge Problem: Pulmonary edema, Hypoxia, Renal failure, acute on chronic Patient Disposition: Admitted As Inpatient Condition: Good Discharge Instructions Interventions: ED Discharge Assessment Last Done: 12/26/20 19:50 Discharge Problem: Pulmonary edema Qualifiers: Chronicity: acute Qualified Code(s): J81.0 - Acute pulmonary edema Renal failure, acute on chronic Qualifiers: Acute renal failure type: unspecified Chronic kidney disease stage: on chronic dialysis Qualified Code(s): N17.9 - Acute kidney failure, unspecified
[2020-12-26 14:09] LABS: Basophils # (auto) 0.04 K/uL (0-0.2); Basophils % (auto) 0.4 %; Eosinophils # (auto) 0.53 K/uL (0-0.5); Eosinophils % (auto) 5.1 %; Hematocrit (blood only) 27.3 % (42-52); Lymphocytes # (auto) 1.19 K/uL (1.2-3.4); Lymphocytes % (auto) 11.4 %; Mean Corpuscular Hemoglobin 29.5 pg (25-34); Mean Corpuscular Volume 89.5 fL (80-100); Mean Platelet Volume 8.7 fL (7.4-10.4); Monocytes # (auto) 0.44 K/uL (0.11-0.59); Monocytes % (auto) 4.2 %; Neutrophils # (auto) 8.11 K/uL (1.4-6.5); Neutrophils % (auto) 77.9 %; Nucleated RBC # (auto) 0.03 K/uL (0-0); Nucleated RBC % (auto) 0.3 %; Platelet Count 245 K/uL (130-400); RDW Coefficient of Variation 16.4 % (11.5-14.5); RDW Standard Deviation 53.3 fL (36.4-46.3); Red Blood Count 3.05 M/uL (4.7-6.1); White Blood Count 10.41 K/uL (4.8-10.8)
[2020-12-26 14:13] LABS: Base Excess VBG 6.8 mEq/L; Oxygen Saturation VBG 70.3 %; pH VBG 7.43 (7.36-7.41)
[2020-12-26 14:20] LABS: INR 0.9 (0.9-1.1); Partial Thromboplastin Ratio 0.9; Partial Thromboplastin Time 23.4 Seconds (21.0-31.0); Prothrombin Time 9.5 Seconds (9.0-12.0)
[2020-12-26 14:42] LABS: Alanine Aminotransferase 18 U/L (12-78); Albumin Globulin Ratio 1.1 (0.9-2); Albumin Level 3.7 gm/dl (3.4-5.0); Alkaline Phosphatase 70 U/L (45-117); Aspartate Aminotransferase 10 U/L (15-37); BUN Creatinine Ratio 3.1 (10-20); Bilirubin,Total 1.1 mg/dl (0.2-1); Blood Urea Nitrogen 23 mg/dl (7-18); Calcium 9.2 mg/dl (8.5-10.1); Carbon Dioxide 31 mmol/L (21-32); Chloride 100 mmol/L (98-107); Creatinine Clr Calc Pharmacy 16.6 ml/min; Est GFR (Non-African American) 8.6 ml/min; Globulin 3.4 gm/dl (2.5-4.0); Glucose 67 mg/dl (70-99); Magnesium 2.4 mg/dl (1.8-2.4); NT Pro B Type Natriuretic Pept > 35000 pg/ml (0-450); Potassium 3.9 mmol/L (3.5-5.1); Sodium 138 mmol/L (136-145); Total Protein 7.1 gm/dl (6.4-8.2); Troponin I < 0.015 ng/ml (0-0.045)
[2020-12-26] MEDS ORDERED: FUROSEMIDE 40 MG/4 ML VIAL IV STA ×2 (15:44→17:38)
--- NOTE | 2020-12-26 16:55 | History & Physical Report ---
Date of Service December 26, 2020 Assessment & Plan (1) Acute and chronic respiratory failure with hypoxia: Plan: This is a 40yo M with a PMH of ESRD on HD MWF, type 2 diabetes, chronic respiratory failure with hypoxia, nonischemic cardiomyopathy, pulmonary sarcoidosis, hypertension and other medical problems listed below who presents from home with worsening shortness of breath. Hypoxic in low 80s the past few days despite increasing baseline O2 from 2L to 3-4L In setting of volume overload Appears comfortable resting with 95% saturation on 3L NC Expect improvement with diuresis, HD tomorrow (2) Volume overload: Plan: In setting of renal failure, heart failure discussed below Still making some urine Given 40mg IV Lasix in ER - gave an additional 60mg IV Lasix and 5mg Metolazone per instruction from Dr. Xavier Appreciate nephrology input Monitor I&Os, daily weights (3) Heart failure with reduced ejection fraction: Plan: Appears volume overloaded clinically Pro BNP >35,000 CXR with cardiomegaly with pulmonary vascular congestion and suspected mild pulmonary edema Continue diuresis, monitor on telemetry (4) End stage renal disease: Plan: HD MWF at [facility] Cr 7.3 (bl mid 5-6s) but appears stable, K 3.9, BP normotensive Discussed with Dr. Xavier, who plans to dialyze first thing tomorrow AM Continue renal diet, phos binders, diuresis (5) Sarcoidosis: Plan: Follows with Dr. Blackmon as outpatient Recent lung CT from November 2020 looks improved (6) Hypertension: Plan: Home regimen includes amlodipine HS, hydralazine BID, lisinopril HS and Toprol Normotensive currently and given additional IV Lasix Monitor BP - plan to hold evening dose of hydralazine (7) Diabetes: Plan: Type 1 DM - A1c 6.9 in 08/13 Repeat a1c pending Basal bolus insulin per protocol while in-patient BSG AC HS (8) Hip pain, left: Plan: Worsening L hip pain, due to start PT soon No recent imaging of hip as OP - will obtain XR Not prescribed narcotics by PCP Giving 1gm Tylenol now to start, ice PRN (9) Anemia of chronic disease: Plan: Hgb improved slightly from baseline at 9 Monitor with daily CBC DVT Ppx: SQ heparin Code status: FULL PCP: Pilgram Dispo: Admitted to [facility] Patient seen in collaboration with Dr. Kate. Please see addendum. History of Present Illness Chief Complaint: SOB, requiring O2 Primary Care Provider: Jaime Lovelace MD This is a 40yo M with a PMH of ESRD on HD MWF, type 2 diabetes, chronic respiratory failure with hypoxia, nonischemic cardiomyopathy, pulmonary sarcoidosis, hypertension and other medical problems listed below who presents from home with worsening shortness of breath. Wears home 2L NC oxygen at baseline but has been hypoxic in low 80s the past few days despite increasing it to 3 or 4L. Per chart review, in mid November patient was noted to not be staying for full dialysis sessions. He attributed this to restless leg syndrome and discomfort during session and was prescribed Requip, which he did not tolerate. Was also prescribed ativan to take before sessions which has helped and he has recently been completing full sessions. Had HD yesterday in [place]. Also follows with cardiology and was due for clinic visit last week but was unable to make appointment. Creatinine is 7.30 today (baseline mid 5-6s). Follows with PCP Dr. Lovelace and Dr. Thomson for nephrology. Besides feeling SOB, patient endorsing worsening pain in left hip with any type of movement. Due to start physical therapy soon. Denies any fever, chills, lightheadedness, headache, chest pain, wheezing, nausea, vomiting, abdominal pain, dysuria, diarrhea constipation. Feels that he is more fluid in his abdomen than usual. Allergies Allergy/AdvReac Type Severity Reaction Status Date / Time No Known Allergies Allergy Unknown Verified 12/26/20 13:58 Home Medications Medication Instructions Recorded Confirmed Type insulin glargine 100 unit/mL (3 56 unit SUBCUT DAILY 05/24/19 12/26/20 History mL) subcutaneous pen (Lantus Solostar U-100 Insulin) amlodipine 10 mg tablet 10 mg PO HS 06/11/19 12/26/20 History calcium acetate(phosphat bind) 667 1,334 mg PO UD 06/11/19 12/26/20 History mg tablet lisinopril 40 mg tablet 40 mg PO HS 06/11/19 12/26/20 History calcium carbonate 200 mg calcium 200 mg PO DAILY 02/03/20 12/26/20 History (500 mg) chewable tablet (Tums) hydralazine 25 mg tablet 25 mg PO BID 02/03/20 12/26/20 History vitamin B complex-vitamin C-folic 1 tab PO DAILY 02/03/20 12/26/20 History acid 0.8 mg tablet (Myrna-Bello) albuterol sulfate 90 mcg/actuation 2 puff INHALATION Q6 PRN 10/13/20 12/26/20 History aerosol inhaler atorvastatin 40 mg tablet 40 mg PO PM 10/13/20 12/26/20 History insulin aspart U-100 100 unit/mL 16 unit SUBCUT AC 10/13/20 12/26/20 History (3 mL) subcutaneous pen (Novolog Flexpen U-100 Insulin aspart) lorazepam 1 mg tablet 1 mg PO UD 10/13/20 12/26/20 History metoprolol succinate 50 mg 50 mg PO BID 10/13/20 12/26/20 History tablet,extended release 24 hr torsemide 100 mg tablet 100 mg PO DAILY 10/13/20 12/26/20 History aspirin 81 mg tablet 81 mg PO DAILY 12/26/20 12/26/20 History calcium acetate(phosphat bind) 667 667 mg PO TID 12/26/20 12/26/20 History mg tablet trazodone 50 mg tablet 50 mg PO HS 12/26/20 12/26/20 History Past Med/Surg History Medical History A-V fistula right Abnormal CT scan of lung Anemia Chronic respiratory failure with hypoxia Diabetes IDDM (Type 1 per records) Dyslipidemia End stage renal disease diaylsis - M,W,F ([facility], [place]) Heart failure with reduced ejection fraction Hypertension Obesity Sarcoidosis per records Seizure disorder remote hx (2007) in setting of hypoglycemia (?ETOH related per records), no issues since Surgical History History of vascular access device permacath insertion Hx of biopsy kidney bx PONV (postoperative nausea and vomiting) Status post creation of arteriovenous fistula right: 07/15/17: MAC sedation at [facility] Family History Father Hypertension Social History Smoking Status: Unknown if ever smoked Second Hand Exposure: No; Hx Alcohol Use: No Hx Substance Use: No Preferred Language: Lao Communication Ability: Effective Industrial Engineering Professor Required: No Beliefs That Will Affect Care: None Current Living Situation: Other Current Living Situation Comment: two story house with two roomates Feels Safe at Home: Yes Assistive Devices: Glasses and Oxygen - Continuous Review of Systems Review of Systems: At least ten systems reviewed and negative except as noted in the HPI. Physical Exam Physical Exam: General Appearance: WD/WN, vitals as above, NAD, sitting up in bed, pleasant, conversing easily Head: normocephalic, atraumatic Eyes: normal inspection, PERRL, conjunctivae normal, anicteric sclerae ENT: external ear and nose normal, oropharynx normal Neck: normal visual inspection, trachea midline, no thyromegaly Respiratory: normal respiratory effort, coarse breath sounds at bases, no wheeze, rales or rhonchi. No accessory muscle use Cardiovascular: regular rate, rhythm, no murmur, normal peripheral pulses, no BLE edema. Vessels: no JVD Chest: normal inspection of chest Abdomen/GI: normal bowel sounds, soft but distended with fluid, nontender, no hepatosplenomegaly Extremities/Musculoskeletal: +R arm AV fistula. No cyanosis or clubbing, extremities motor strength 5/5 Neurologic: PERRL, EOMI, accommodation nl, no face palsy, no dysarthria, CN's II-XI intact bilaterally and moves all extremities Psychiatric: A+Ox3, euthymic affect Skin: no rashes, normal color, warm/dry Results & Data Results & Data ([facility]) Vital Signs (Past 12 Hours) Vital Signs Temp Pulse Pulse Resp BP BP Pulse Ox 12/26/20 14:30 74 19 94 12/26/20 14:01 75 20 94 12/26/20 13:35 79 21 179/94 H 94 12/26/20 13:30 77 96 H 20 179/94 H 98 12/26/20 13:11 36.4 C L 84 20 158/88 H 87 L Laboratory Results Short CBC 12/26/20 12/26/20 Range/Units 13:55 13:55 WBC 10.41 (4.8-10.8) K/uL Hgb 9.0 L (14.0-18.0) g/dL Hct 27.3 L (42-52) % Plt Count 245 (130-400) K/uL Creatinine 7.30 H* (0.6-1.4) mg/dl BMP 12/26/20 13:55 Sodium 138 Potassium 3.9 Chloride 100 Carbon Dioxide 31 BUN 23 H Creatinine 7.30 H* Glucose 67 L Calcium 9.2 Cardiac Enzymes 12/26/20 Range/Units 13:55 Troponin I < 0.015 (0-0.045) ng/ml Liver Function 12/26/20 Range/Units 13:55 Total Bilirubin 1.1 H (0.2-1) mg/dl AST 10 L (15-37) U/L ALT 18 (12-78) U/L Alkaline Phosphatase 70 (45-117) U/L Albumin 3.7 (3.4-5.0) gm/dl Diagnostic Findings Chest X-Ray 12/26/20 13:27 XR chest 1V portable CLINICAL HISTORY: Dyspnea COMPARISON STUDY: Chest radiograph October 18, 2020. Chest CT October 13, 2020. FINDINGS: Lung volumes are normal. There is no pneumothorax or pleural fusion. Moderate cardiomegaly is noted. There is pulmonary vascular congestion with possible mild pulmonary edema. No consolidation is identified. Old right clavicular fracture is noted. IMPRESSION: Cardiomegaly with pulmonary vascular congestion and suspected mild pulmonary edema. ACT 112: Negative or not required by law. Electronically signed by: Silverio Krishnamurthy M.D. 12/26/2020 1:49 PM Supervising Physician Co-Signing Physician Notes Attending addendum: The patient was seen and examined in emergency room This is a 40yo M with a PMH of ESRD on HD MWF, type 2 diabetes, chronic respiratory failure with hypoxia, nonischemic cardiomyopathy, pulmonary sarcoidosis, hypertension and other medical problems listed below who presents from home with worsening shortness of breath. Complains low saturation of around 70s last night with shortness of breath Denies any symptoms as of now and has been feeling much better On examination Lying in bed comfortably Hemodynamically stable with blood pressure on the upper side at 166/88 Chestminimal crackles at the bases HeartS1-S2, no murmur Abdomenmildly distended, soft and bowel sound present Extremities-no edema His admission labs, EKG and imaging studies reviewed Has cardiomegaly with pulmonary vascular congestion with mild pulmonary edema End-stage renal disease on hemodialysis Discussed with guide plant, Lasix administered and will have dialysis tomorrow Agree with assessment and plan as outlined above by RUBINA Villar DR
[2020-12-26] MEDS ORDERED: ACETAMINOPHEN 500 MG TAB PO STA (18:23)
--- NOTE | 2020-12-26 19:17 | XRay Report ---
XR hip LT min 2V CLINICAL HISTORY: Left hip pain. COMPARISON: CT of the abdomen and pelvis August 09, 2007. FINDINGS: Alignment of left hip is anatomic. No acute fracture. No osseous lesion is identified. The re is moderate vascular calcification. Moderate left hip joint space narrowing is noted. IMPRESSION: 1. No acute fracture or dislocation within the left hip. 2. Moderate left hip joint space narrowing. ACT 112: Negative or not required by law. Electronically signed by: Silverio Krishnamurthy M.D. 12/26/2020 7:15 PM
[2020-12-26] MEDS ORDERED: CARBOHYDRATES FOR HYPOGLYCEMIA PO PRN (20:32)
[2020-12-26] MEDS ORDERED: DEXTROSE 50% 50 ML SYRINGE IV PRN (20:32)
[2020-12-26] MEDS ORDERED: POLYETHYLENE (MIRALAX) 17 GM PACK PO PRN (20:32)
[2020-12-26] MEDS ORDERED: ALBUTEROL HFA 8 GM INHALER INH PRN (20:32)
[2020-12-26] MEDS ORDERED: GLUCAGON FOR INJ 1 MG VIAL SQ PRN (20:32)
[2020-12-26] MEDS ORDERED: ONDANSETRON INJ 2 MG/ML 2 ML VIAL IV PRN (20:32)
[2020-12-26] MEDS ORDERED: GLUCOSE 10 TABS/TUBE PO PRN (20:32)
[2020-12-26] MEDS ORDERED: GLUCOSE 40% GEL 15 GM TUBE PO PRN (20:32)
[2020-12-26] MEDS ORDERED: LORazepam 1 MG TAB PO PRN (21:00)
[2020-12-26] MEDS ORDERED: amLODIPine BESYLATE 5 MG TAB PO SCH (21:00)
[2020-12-26] MEDS ORDERED: lisinopril 40 MG TAB PO SCH (21:00)
[2020-12-26] MEDS ORDERED: traZODone HCL 50 MG TAB PO SCH (21:00)
[2020-12-26] MEDS ORDERED: ATORVASTATIN 40 MG TAB PO SCH (21:00)
[2020-12-26] MEDS ORDERED: metOLazone 5 MG TABLET PO ONE (21:15)
[2020-12-26] MEDS: CALCIUM ACETATE 667 MG CAP/TAB PO SCH (22:20)
[2020-12-26] MEDS: HEPARIN SOD 5,000 UNIT/0.5 ML VIAL SQ SCH (22:21)
[2020-12-26] MEDS: METOPROLOL SUCC 50MG EXT REL TAB PO SCH (22:21)
[2020-12-26] MEDS: INSULIN ASPART 100 UNITS/ML 3 ML PEN SC SCH (22:22)
[2020-12-27] MEDS: HEPARIN SOD 5,000 UNIT/0.5 ML VIAL SQ SCH ×2 (06:33→13:20)
[2020-12-27 07:06] LABS: Appearance Urine Clear (Clear); Bacteria Urine Automated Negative (Negative); Bilirubin Urine Negative (Negative); Blood Urine Negative (Negative); Color Urine Yellow; Epithelial Cell Urine Auto 0-5 /lpf (0-5); Glucose Urine UA 1+ (Negative); Ketones Urine Negative (Negative); Leukocyte Esterase Urine Negative (Negative); Nitrite Urine Negative (Negative); Protein Urine 3+ (Negative); RBC Urine Automated 0-4 /hpf (0-4); Specific Gravity Urine 1.009 (1.000-1.030); Urobilinogen Urine Negative (Negative); pH Urine 8.5 (4.5-7.5)
[2020-12-27] MEDS: INSULIN ASPART 100 UNITS/ML 3 ML PEN SC SCH ×2 (07:30→13:33)
[2020-12-27] MEDS: METOPROLOL SUCC 50MG EXT REL TAB PO SCH (07:31)
[2020-12-27] MEDS: CALCIUM ACETATE 667 MG CAP/TAB PO SCH ×2 (07:31→13:20)
[2020-12-27 07:45] LABS: Sperm Urine Present (None Prsent)
[2020-12-27] MEDS ORDERED: SODIUM CHLORIDE 0.9% 1000ML 1,000 ML IV PRN (07:54)
--- NOTE | 2020-12-27 07:56 | Nephrology Consultation ---
Date of Consultation December 27, 2020 Assessment & Plan (1) End stage renal disease: Continue his regular MWF HD w/ HD today - orders in w/ as aggressive UF as tolerated Reassess tomorrow for another tx - planned tentatively for 2 hrs; pt aware Defer to primary service to evaluate /manage hip/back pain; did remind him that ativan does not treat hip pain and has addictive potential (2) Hypertension: acceptable control; continue toprol, hydralazine, lisinopril at current doses; no contraindication from renal standpoint to continue torsemide, though unlikely to affect HTN very much (3) Anemia of chronic disease: [place] w/ HD; hgb acceptable though note gradual decline over past 8 wks; t stn ordered for tomorrow (4) Pulmonary edema: this is his primary issue, driving acute on chronic respiratory and diastolic HF; d/t volume overload and nonadherence to HD tx rxs and fluid limits -daily standing weight pls -ordered FR 1.5L -aggressive daily dialysis -<2 gm daily Na diet History of Present Illness Reason for Consultation: ESRD on dialysis Requesting Physician: Dr Heller Attending Physician: Antoine Heller MD History of Present Illness 40 y/o M on MWF HD whom I'm asked to see for dialysis needs after he was admitted last evening with volume overload and acute on chronic respiratory failure, acute on chronic diastolic heart failure. Other PMH includes type 2 diabetes, chronic respiratory failure with hypoxia, nonischemic cardiomyopathy w07/2020 EF 45% and [facility] same date w/ essentially clean coronoaries, pulmonary sarcoidosis dx'd 2007, hypertension. He is to wear 02 NC 1L w/ exertion; though not usually adherent with this). he had a full treatment on 12/25 but did leave w/ temp approx 100.2 at end of tx. He woke w/ PÉREZ on night HEALTH AND WELLNESS ADVISOR w/ 02 sat 72%; then put on 02NC and woke with sat 61%. Had full txs x at least 2 last week and on 12/25. Throughout November, patient has not stayed for full dialysis sessions d/t various complaints, generally back or L hip pain or RLS. His PCP has been working with him on PT and on rxs for requip (did not tolerate) and ativan ( pt states this helps). Both I and outpt dialysis RNs have observed that pt often gives inconsistent hx about his sx. He received 100 mg IV lasix and 5 mg metolazone in ER. I saw him just after HD tx today > he stated that ativan helped him sleep and thus ignore his hip pain. no cramping. he states to me that throughout recent days his sob has been at baseline but sats have beendropping/concerning. Denies recent acute illness despite temp elevation reported above. No new or worrisome voiding sx. No issues w/ cannulation. Allergies Allergy/AdvReac Type Severity Reaction Status Date / Time No Known Allergies Allergy Unknown Verified 12/26/20 13:58 Home Medications Medication Instructions Recorded Confirmed Type insulin glargine 100 unit/mL (3 56 unit SUBCUT DAILY 05/24/19 12/26/20 History mL) subcutaneous pen (Lantus Solostar U-100 Insulin) amlodipine 10 mg tablet 10 mg PO HS 06/11/19 12/26/20 History calcium acetate(phosphat bind) 667 1,334 mg PO UD 06/11/19 12/26/20 History mg tablet lisinopril 40 mg tablet 40 mg PO HS 06/11/19 12/26/20 History calcium carbonate 200 mg calcium 200 mg PO DAILY 02/03/20 12/26/20 History (500 mg) chewable tablet (Tums) hydralazine 25 mg tablet 25 mg PO BID 02/03/20 12/26/20 History vitamin B complex-vitamin C-folic 1 tab PO DAILY 02/03/20 12/26/20 History acid 0.8 mg tablet (Myrna-Bello) albuterol sulfate 90 mcg/actuation 2 puff INHALATION Q6 PRN 10/13/20 12/26/20 History aerosol inhaler atorvastatin 40 mg tablet 40 mg PO PM 10/13/20 12/26/20 History insulin aspart U-100 100 unit/mL 16 unit SUBCUT AC 10/13/20 12/26/20 History (3 mL) subcutaneous pen (Novolog Flexpen U-100 Insulin aspart) lorazepam 1 mg tablet 1 mg PO UD 10/13/20 12/26/20 History metoprolol succinate 50 mg 50 mg PO BID 10/13/20 12/26/20 History tablet,extended release 24 hr torsemide 100 mg tablet 100 mg PO DAILY 10/13/20 12/26/20 History aspirin 81 mg tablet 81 mg PO DAILY 12/26/20 12/26/20 History calcium acetate(phosphat bind) 667 667 mg PO TID 12/26/20 12/26/20 History mg tablet trazodone 50 mg tablet 50 mg PO HS 12/26/20 12/26/20 History Patient History Medical History A-V fistula right Abnormal CT scan of lung Anemia Chronic respiratory failure with hypoxia Diabetes IDDM (Type 1 per records) Dyslipidemia End stage renal disease diaylsis - M,W,F ([facility], [place]) Heart failure with reduced ejection fraction Hypertension Obesity Sarcoidosis per records Seizure disorder remote hx (2007) in setting of hypoglycemia (?ETOH related per records), no issues since Surgical History History of vascular access device permacath insertion Hx of biopsy kidney bx PONV (postoperative nausea and vomiting) Status post creation of arteriovenous fistula right: 07/15/17: MAC sedation at [facility] Family History Father Hypertension Social History (Updated 12/27/20 @ 13:49 by Nicki Thomson MD, PhD) Smoking Status: Former smoker Years Smoked: 2; Smoking End Date: 1998; Second Hand Exposure: No; Do You Dip or Chew Tobacco: No; Tobacco Cessation Education Requested by Patient: No Hx Alcohol Use: No Hx Substance Use: No Preferred Language: Armenian Communication Ability: Effective Aquatic Scientist Required: No Beliefs That Will Affect Care: None Current Living Situation: Other Current Living Situation Comment: 2story house with roommates. Other Information That Helps Us Care for You: No Feels Safe at Home: Yes Safety Concerns: Feels Safe At This Time Assistive Devices: None Review of Systems Review of Systems: All systems reviewed & are unremarkable except as noted in HPI & below Physical Exam Constitutional: well developed, well nourished and cooperative; no acute distress Eyes: EOM intact bilaterally ENMT: Ears: no external ear abnormality Nose: no external nose abnormality Mouth: + dry oral mucous membranes Neck: no nuchal rigidity Respiratory: normal respiratory effort Auscultation: + diminished lung sounds Cardiovascular: Rate/Rhythm: regular rate and regular rhythm Extremities: + AV fistula (+ t/b); no edema Gastrointestinal (Abdomen): Inspection/Auscultation: + abdomen distended and normal bowel sounds Percussion/Palpation: abdomen soft; abdomen nontender Musculoskeletal: Extremities: strength 5/5 throughout Skin: no rashes, warm and dry Neurologic: morocho, fluent speech, no tremor Psychiatric: Orientation: alert and oriented x 3 Speech: normal rate/rhythm/volume of speech Insight: good insight Judgement: good judgement Results & Data ([facility]) Vital Signs (Past 12 Hours) Vital Signs Temp Pulse Pulse Resp BP BP Pulse Ox 12/27/20 02:45 36.8 C 64 18 136/76 97 12/27/20 02:32 91 H 12/27/20 01:53 97 H 12/27/20 00:14 82 154/78 H 97 12/26/20 22:55 36.5 C 81 18 164/87 H 96 12/26/20 22:10 36.5 C 88 18 170/88 H 95 12/26/20 20:36 36.7 C 79 18 174/83 H 93 Laboratory Results 12/26/20 13:55 12/26/20 13:55 pro BNP > 35K UA pH 8.5; 1009 sg; 1+ glucose, 3+ protein sediment bland Diagnostic Findings CXXR IMPRESSION: Cardiomegaly with pulmonary vascular congestion and suspected mild pulmonary edema. L hip XR 1. No acute fracture or dislocation within the left hip. 2. Moderate left hip joint space narrowing. (1) Pulmonary edema Chronicity: acute Qualified Code(s): J81.0 - Acute pulmonary edema
[2020-12-27] MEDS ORDERED: HEPARIN SOD (PORCINE) 1000 UNIT/ML IV SCH (08:00)
[2020-12-27] MEDS ORDERED: EPOETIN ALFA 20,000 UNITS/ML VIAL IV SCH (08:00)
[2020-12-27 08:34] LABS: Hematocrit (blood only) 24.8 % (42-52); Hemoglobin 8.1 g/dL (14.0-18.0); Mean Corpuscular Hemoglobin 29.2 pg (25-34); Mean Corpuscular Hgb Conc 32.7 g/dL (32-36); Mean Corpuscular Volume 89.5 fL (80-100); Nucleated RBC # (auto) 0.02 K/uL (0-0); Nucleated RBC % (auto) 0.3 %; Platelet Count 235 K/uL (130-400); RDW Coefficient of Variation 16.4 % (11.5-14.5); RDW Standard Deviation 52.4 fL (36.4-46.3); Red Blood Count 2.77 M/uL (4.7-6.1); White Blood Count 9.14 K/uL (4.8-10.8)
[2020-12-27] MEDS ORDERED: CALCIUM CARBONATE 500 MG CHEWABLE TAB PO SCH (09:00)
[2020-12-27] MEDS ORDERED: NEPHROCAPS PO SCH (09:00)
[2020-12-27] MEDS ORDERED: hydrALAZINE HCL 25 MG TAB PO SCH (09:00)
[2020-12-27] MEDS ORDERED: INSULIN GLARGINE SOLOSTAR 100 UNITS/ML 3 ML PEN SC SCH (09:00)
[2020-12-27] MEDS ORDERED: ASPIRIN 81 MG ECTAB PO SCH (09:00)
[2020-12-27 09:36] LABS: Calcium 8.5 mg/dl (8.5-10.1); Creatinine Clr Calc Pharmacy 13.1 ml/min; Est GFR (African American) 7.6 ml/min; Est GFR (Non-African American) 6.5 ml/min
--- NOTE | 2020-12-27 10:41 | Hospitalist Progress Note ---
Date of Service December 27, 2020 Assessment & Plan (1) Acute and chronic respiratory failure with hypoxia: Plan: This is a 40yo M with a PMH of ESRD on HD MWF, type 2 diabetes, chronic respiratory failure with hypoxia, nonischemic cardiomyopathy, pulmonary sarcoidosis, hypertension and other medical problems listed below who presents from home with worsening shortness of breath. On admission Hypoxic in low 80s the past few days despite increasing baseline O2 from 2L to 3-4L In setting of volume overload Appears comfortable resting with 95% saturation on 3L NC Expect improvement with diuresis, and HD 12/27 -patient underwent dialysis earlier this morning Currently he is on room air, satting 92% He is eager to be discharged home, says he will follow-up with his outpatient dialysis on Friday Nephrology made aware (2) Volume overload: Plan: In setting of renal failure, heart failure discussed below Still making some urine Given 40mg IV Lasix in ER - gave an additional 60mg IV Lasix and 5mg Metolazone per instruction from Dr. Xavier Appreciate nephrology input Monitor I&Os, daily weights Resume outpatient dialysis (3) Heart failure with reduced ejection fraction: Plan: Appears volume overloaded clinically on admission Pro BNP >35,000 CXR with cardiomegaly with pulmonary vascular congestion and suspected mild pulmonary edema Continue diuresis, monitor on telemetry Underwent dialysis today, plan to resume outpatient dialysis (4) End stage renal disease: Plan: HD MWF at [facility] Cr 7.3 (bl mid 5-6s) but appears stable, K 3.9, BP normotensive Discussed with Dr. Xavier, who plans to dialyze first thing tomorrow AM Continue renal diet, phos binders, diuresis Now status post dialysis earlier today, December 27, plan to resume outpatient dialysis (5) Sarcoidosis: Plan: Follows with Dr. Blackmon as outpatient Recent lung CT from November 2020 looks improved (6) Hypertension: Plan: Home regimen includes amlodipine HS, hydralazine BID, lisinopril HS and Toprol Normotensive currently and given additional IV Lasix Monitor BP - plan to hold evening dose of hydralazine (7) Diabetes: Plan: Type 1 DM - A1c 6.9 in 08/13 Repeat a1c pending Basal bolus insulin per protocol while in-patient BSG AC HS (8) Hip pain, left: Plan: Worsening L hip pain, due to start PT soon No recent imaging of hip as OP - will obtain XR Not prescribed narcotics by PCP Giving 1gm Tylenol now to start, ice PRN Currently no mention of left hip pain, and he is walking in the hallway without any difficulty (9) Anemia of chronic disease: Plan: Hgb improved slightly from baseline at 9 Monitor with daily CBC DVT Ppx: SQ heparin Code status: FULL PCP: Dr. Lovelace Dispo: Admitted to [facility] tele Admission and Anticipated Discharge Date Admission Date: December 26, 2020 Subjective Patient seen in follow-up of fluid overload, in the setting of end-stage renal disease Underwent dialysis earlier today, already feeling much better Is currently on room air, satting 92% He is "saying that he is leaving at 4 PM" I discussed with him that nephrology is thinking about doing further dialysis tomorrow, however he tells me that he has dialysis as outpatient on Friday and he will go to that one He is not willing to stay any longer He denies any chest pain, shortness of breath, currently speaking in full sentences without difficulty, walking in hallway, on room air Review of Systems Constitutional: no fever and no chills Respiratory: no cough and no dyspnea Cardiovascular: no chest pain and no palpitations Physical Exam Physical Exam: General Appearance: WD/WN, NAD, currently on room air Head: normocephalic, atraumatic Eyes: normal inspection, PERRL, conjunctivae normal, anicteric sclerae ENT: external ear and nose normal, oropharynx normal Neck: normal visual inspection, trachea midline, no thyromegaly Respiratory: normal respiratory effort, no wheeze or rhonchi. Somewhat diminished at the bases. no accessory muscle use Cardiovascular: regular rate, rhythm, no murmur, normal peripheral pulses, no BLE edema. Vessels: no JVD Chest: normal inspection of chest Abdomen/GI: normal bowel sounds, soft, nontender Extremities/Musculoskeletal: +R arm AV fistula. No cyanosis or clubbing, extremities motor strength 5/5 Neurologic: PERRL, EOMI, no face palsy, no dysarthria, moves all extremities Psychiatric: A+Ox3, euthymic affect Skin: no rashes, normal color, warm/dry Results & Data Results & Data ([facility]) Vital Signs (Past 12 Hours) Vital Signs Temp Pulse Pulse Pulse Resp BP BP 08/04/21 10:20 73 126/71 12/27/20 10:00 88 147/71 H 12/27/20 09:40 78 128/67 12/27/20 09:20 81 145/65 H 12/27/20 09:00 80 135/67 12/27/20 08:43 60 135/65 12/27/20 08:40 36.6 C 83 12/27/20 08:14 36.6 C 83 19 12/27/20 02:45 36.8 C 64 18 136/76 12/27/20 02:32 91 H 12/27/20 01:53 97 H 12/27/20 00:14 82 154/78 H 12/26/20 22:55 36.5 C 81 18 164/87 H BP Pulse Ox 12/27/20 10:20 12/27/20 10:00 12/27/20 09:40 12/27/20 09:20 12/27/20 09:00 12/27/20 08:43 12/27/20 08:40 12/27/20 08:14 168/82 H 90 12/27/20 02:45 97 12/27/20 02:32 12/27/20 01:53 12/27/20 00:14 97 12/26/20 22:55 96 Laboratory Results 12/27/20 12/27/20 12/27/20 Range/Units Unknown 08:06 08:06 WBC 9.14 (4.8-10.8) K/uL RBC 2.77 L (4.7-6.1) M/uL Hgb 8.1 L (14.0-18.0) g/dL Hct 24.8 L (42-52) % MCV 89.5 (80-100) fL MCH 29.2 (25-34) pg MCHC 32.7 (32-36) g/dL RDW Std Deviation 52.4 H (36.4-46.3) fL RDW Coeff of Selin 16.4 H (11.5-14.5) % Plt Count 235 (130-400) K/uL MPV 9.0 (7.4-10.4) fL Immature Gran % (Auto) % Neut % (Auto) % Lymph % (Auto) % Barton % (Auto) % Eos % (Auto) % Baso % (Auto) % Neut # (Auto) (1.4-6.5) K/uL Lymph # (Auto) (1.2-3.4) K/uL Barton # (Auto) (0.11-0.59) K/uL Eos # (Auto) (0-0.5) K/uL Baso # (Auto) (0-0.2) K/uL Immature Gran # (Auto) (0.00-0.02) K/uL Absolute Nucleated RBC 0.02 H (0-0) K/uL Nucleated RBC % (auto) 0.3 % PT (9.0-12.0) Seconds INR (0.9-1.1) APTT (21.0-31.0) Seconds PTT Ratio VBG pH (7.36-7.41) VBG pCO2 (38-50) mmHg VBG pO2 mmHg VBG HCO3 mmol/L VBG O2 Saturation % VBG Base Excess mEq/L Barometric Pressure mm/Hg Sodium 138 (136-145) mmol/L Potassium 4.0 (3.5-5.1) mmol/L Chloride 102 (98-107) mmol/L Carbon Dioxide 28 (21-32) mmol/L Anion Gap 8.0 (3-11) BUN 35 H D (7-18) mg/dl Creatinine 9.15 H* D (0.6-1.4) mg/dl Est Cr Clr Drug Dosing 13.1 ml/min Est GFR ( Amer) 7.6 ml/min Est GFR (Non-Af Amer) 6.5 ml/min BUN/Creatinine Ratio 4.0 L (10-20) Glucose 112 H (70-99) mg/dl POC Glucose (70-99) mg/dl Calcium 8.5 (8.5-10.1) mg/dl Magnesium (1.8-2.4) mg/dl Total Bilirubin (0.2-1) mg/dl AST (15-37) U/L ALT (12-78) U/L Alkaline Phosphatase (45-117) U/L Troponin I (0-0.045) ng/ml NT-Pro-B Natriuret Pep (0-450) pg/ml Total Protein (6.4-8.2) gm/dl Albumin (3.4-5.0) gm/dl Globulin (2.5-4.0) gm/dl Albumin/Globulin Ratio (0.9-2) Urine Color Yellow Urine Appearance Clear (Clear) Urine pH 8.5 H (4.5-7.5) Ur Specific [place] 1.009 (1.000-1.030) Urine Protein 3+ H (Negative) Urine Glucose (UA) 1+ H (Negative) Urine Ketones Negative (Negative) Urine Blood Negative (Negative) Urine Nitrite Negative (Negative) Urine Bilirubin Negative (Negative) Urine Urobilinogen Negative (Negative) Ur Leukocyte Esterase Negative (Negative) Urine WBC (Auto) 1-5 (0-5) /hpf Urine RBC (Auto) 0-4 (0-4) /hpf U Hyaline Cast (Auto) 1-5 (0-5) /lpf U Epithel Cells (Auto) 0-5 (0-5) /lpf Urine Bacteria (Auto) Negative (Negative) Urine Sperm Present A (None Prsent) COVID-19 Eval Order SARS-CoV-2 (PCR) (Negative) 12/27/20 12/26/20 12/26/20 Range/Units 07:09 20:09 14:10 WBC (4.8-10.8) K/uL RBC (4.7-6.1) M/uL Hgb (14.0-18.0) g/dL Hct (42-52) % MCV (80-100) fL MCH (25-34) pg MCHC (32-36) g/dL RDW Std Deviation (36.4-46.3) fL RDW Coeff of Selin (11.5-14.5) % Plt Count (130-400) K/uL MPV (7.4-10.4) fL Immature Gran % (Auto) % Neut % (Auto) % Lymph % (Auto) % Barton % (Auto) % Eos % (Auto) % Baso % (Auto) % Neut # (Auto) (1.4-6.5) K/uL Lymph # (Auto) (1.2-3.4) K/uL Barton # (Auto) (0.11-0.59) K/uL Eos # (Auto) (0-0.5) K/uL Baso # (Auto) (0-0.2) K/uL Immature Gran # (Auto) (0.00-0.02) K/uL Absolute Nucleated RBC (0-0) K/uL Nucleated RBC % (auto) % PT (9.0-12.0) Seconds INR (0.9-1.1) APTT (21.0-31.0) Seconds PTT Ratio VBG pH (7.36-7.41) VBG pCO2 (38-50) mmHg VBG pO2 mmHg VBG HCO3 mmol/L VBG O2 Saturation % VBG Base Excess mEq/L Barometric Pressure mm/Hg Sodium (136-145) mmol/L Potassium (3.5-5.1) mmol/L Chloride (98-107) mmol/L Carbon Dioxide (21-32) mmol/L Anion Gap (3-11) BUN (7-18) mg/dl Creatinine (0.6-1.4) mg/dl Est Cr Clr Drug Dosing ml/min Est GFR ( Amer) ml/min Est GFR (Non-Af Amer) ml/min BUN/Creatinine Ratio (10-20) Glucose (70-99) mg/dl POC Glucose 85 156 H (70-99) mg/dl Calcium (8.5-10.1) mg/dl Magnesium (1.8-2.4) mg/dl Total Bilirubin (0.2-1) mg/dl AST (15-37) U/L ALT (12-78) U/L Alkaline Phosphatase (45-117) U/L Troponin I (0-0.045) ng/ml NT-Pro-B Natriuret Pep (0-450) pg/ml Total Protein (6.4-8.2) gm/dl Albumin (3.4-5.0) gm/dl Globulin (2.5-4.0) gm/dl Albumin/Globulin Ratio (0.9-2) Urine Color Urine Appearance (Clear) Urine pH (4.5-7.5) Ur Specific [place] (1.000-1.030) Urine Protein (Negative) Urine Glucose (UA) (Negative) Urine Ketones (Negative) Urine Blood (Negative) Urine Nitrite (Negative) Urine Bilirubin (Negative) Urine Urobilinogen (Negative) Ur Leukocyte Esterase (Negative) Urine WBC (Auto) (0-5) /hpf Urine RBC (Auto) (0-4) /hpf U Hyaline Cast (Auto) (0-5) /lpf U Epithel Cells (Auto) (0-5) /lpf Urine Bacteria (Auto) (Negative) Urine Sperm (None Prsent) COVID-19 Eval Order SARS-CoV-2 (PCR) NEGATIVE (Negative) 12/26/20 12/26/20 12/26/20 Range/Units 14:10 13:55 13:55 WBC (4.8-10.8) K/uL RBC (4.7-6.1) M/uL Hgb (14.0-18.0) g/dL Hct (42-52) % MCV (80-100) fL MCH (25-34) pg MCHC (32-36) g/dL RDW Std Deviation (36.4-46.3) fL RDW Coeff of Selin (11.5-14.5) % Plt Count (130-400) K/uL MPV (7.4-10.4) fL Immature Gran % (Auto) % Neut % (Auto) % Lymph % (Auto) % Barton % (Auto) % Eos % (Auto) % Baso % (Auto) % Neut # (Auto) (1.4-6.5) K/uL Lymph # (Auto) (1.2-3.4) K/uL Barton # (Auto) (0.11-0.59) K/uL Eos # (Auto) (0-0.5) K/uL Baso # (Auto) (0-0.2) K/uL Immature Gran # (Auto) (0.00-0.02) K/uL Absolute Nucleated RBC (0-0) K/uL Nucleated RBC % (auto) % PT 9.5 (9.0-12.0) Seconds INR 0.9 (0.9-1.1) APTT 23.4 (21.0-31.0) Seconds PTT Ratio 0.9 VBG pH 7.43 H (7.36-7.41) VBG pCO2 49 (38-50) mmHg VBG pO2 39 mmHg VBG HCO3 32 mmol/L VBG O2 Saturation 70.3 % VBG Base Excess 6.8 mEq/L Barometric Pressure 734.6 mm/Hg Sodium (136-145) mmol/L Potassium (3.5-5.1) mmol/L Chloride (98-107) mmol/L Carbon Dioxide (21-32) mmol/L Anion Gap (3-11) BUN (7-18) mg/dl Creatinine (0.6-1.4) mg/dl Est Cr Clr Drug Dosing ml/min Est GFR ( Amer) ml/min Est GFR (Non-Af Amer) ml/min BUN/Creatinine Ratio (10-20) Glucose (70-99) mg/dl POC Glucose (70-99) mg/dl Calcium (8.5-10.1) mg/dl Magnesium (1.8-2.4) mg/dl Total Bilirubin (0.2-1) mg/dl AST (15-37) U/L ALT (12-78) U/L Alkaline Phosphatase (45-117) U/L Troponin I (0-0.045) ng/ml NT-Pro-B Natriuret Pep (0-450) pg/ml Total Protein (6.4-8.2) gm/dl Albumin (3.4-5.0) gm/dl Globulin (2.5-4.0) gm/dl Albumin/Globulin Ratio (0.9-2) Urine Color Urine Appearance (Clear) Urine pH (4.5-7.5) Ur Specific [place] (1.000-1.030) Urine Protein (Negative) Urine Glucose (UA) (Negative) Urine Ketones (Negative) Urine Blood (Negative) Urine Nitrite (Negative) Urine Bilirubin (Negative) Urine Urobilinogen (Negative) Ur Leukocyte Esterase (Negative) Urine WBC (Auto) (0-5) /hpf Urine RBC (Auto) (0-4) /hpf U Hyaline Cast (Auto) (0-5) /lpf U Epithel Cells (Auto) (0-5) /lpf Urine Bacteria (Auto) (Negative) Urine Sperm (None Prsent) COVID-19 Eval Order Covid19 at [facility] SARS-CoV-2 (PCR) (Negative) 12/26/20 12/26/20 Range/Units 13:55 13:55 WBC 10.41 (4.8-10.8) K/uL RBC 3.05 L (4.7-6.1) M/uL Hgb 9.0 L (14.0-18.0) g/dL Hct 27.3 L (42-52) % MCV 89.5 (80-100) fL MCH 29.5 (25-34) pg MCHC 33.0 (32-36) g/dL RDW Std Deviation 53.3 H (36.4-46.3) fL RDW Coeff of Selin 16.4 H (11.5-14.5) % Plt Count 245 (130-400) K/uL MPV 8.7 (7.4-10.4) fL Immature Gran % (Auto) 1.0 % Neut % (Auto) 77.9 % Lymph % (Auto) 11.4 % Barton % (Auto) 4.2 % Eos % (Auto) 5.1 % Baso % (Auto) 0.4 % Neut # (Auto) 8.11 H (1.4-6.5) K/uL Lymph # (Auto) 1.19 L (1.2-3.4) K/uL Barton # (Auto) 0.44 (0.11-0.59) K/uL Eos # (Auto) 0.53 H (0-0.5) K/uL Baso # (Auto) 0.04 (0-0.2) K/uL Immature Gran # (Auto) 0.10 H (0.00-0.02) K/uL Absolute Nucleated RBC 0.03 H (0-0) K/uL Nucleated RBC % (auto) 0.3 % PT (9.0-12.0) Seconds INR (0.9-1.1) APTT (21.0-31.0) Seconds PTT Ratio VBG pH (7.36-7.41) VBG pCO2 (38-50) mmHg VBG pO2 mmHg VBG HCO3 mmol/L VBG O2 Saturation % VBG Base Excess mEq/L Barometric Pressure mm/Hg Sodium 138 (136-145) mmol/L Potassium 3.9 (3.5-5.1) mmol/L Chloride 100 (98-107) mmol/L Carbon Dioxide 31 (21-32) mmol/L Anion Gap 7.0 (3-11) BUN 23 H (7-18) mg/dl Creatinine 7.30 H* (0.6-1.4) mg/dl Est Cr Clr Drug Dosing 16.6 ml/min Est GFR ( Amer) 10.0 ml/min Est GFR (Non-Af Amer) 8.6 ml/min BUN/Creatinine Ratio 3.1 L (10-20) Glucose 67 L (70-99) mg/dl POC Glucose (70-99) mg/dl Calcium 9.2 (8.5-10.1) mg/dl Magnesium 2.4 (1.8-2.4) mg/dl Total Bilirubin 1.1 H (0.2-1) mg/dl AST 10 L (15-37) U/L ALT 18 (12-78) U/L Alkaline Phosphatase 70 (45-117) U/L Troponin I < 0.015 (0-0.045) ng/ml NT-Pro-B Natriuret Pep > 59263 H (0-450) pg/ml Total Protein 7.1 (6.4-8.2) gm/dl Albumin 3.7 (3.4-5.0) gm/dl Globulin 3.4 (2.5-4.0) gm/dl Albumin/Globulin Ratio 1.1 (0.9-2) Urine Color Urine Appearance (Clear) Urine pH (4.5-7.5) Ur Specific [place] (1.000-1.030) Urine Protein (Negative) Urine Glucose (UA) (Negative) Urine Ketones (Negative) Urine Blood (Negative) Urine Nitrite (Negative) Urine Bilirubin (Negative) Urine Urobilinogen (Negative) Ur Leukocyte Esterase (Negative) Urine WBC (Auto) (0-5) /hpf Urine RBC (Auto) (0-4) /hpf U Hyaline Cast (Auto) (0-5) /lpf U Epithel Cells (Auto) (0-5) /lpf Urine Bacteria (Auto) (Negative) Urine Sperm (None Prsent) COVID-19 Eval Order SARS-CoV-2 (PCR) (Negative) Medications Administered Current Inpatient Medications Albuterol (Albuterol Hfa 8 Gm Inhaler) 2 puffs INH Q6R PRN PRN Reason: Shortness Of Breath Or Wheezing Stop: 01/25/21 20:31 Amlodipine Besylate (Amlodipine Besylate 5 Mg Tab) 10 mg PO HS CHENG Stop: 01/25/21 20:59 Last Admin: 12/26/20 22:20 Dose: 10 mg Documented by: Aspirin (Aspirin 81 Mg Ectab) 81 mg PO DAILY CHENG Stop: 01/26/21 08:59 Last Admin: 12/27/20 07:31 Dose: 81 mg Documented by: Atorvastatin Calcium (Atorvastatin 40 Mg Tab) 40 mg PO PM CHENG Stop: 01/25/21 20:59 Last Admin: 12/26/20 22:19 Dose: 40 mg Documented by: Calcium Acetate (Calcium Acetate 667 Mg Cap/Tab) 667 mg PO TIDM CHENG Stop: 01/25/21 20:59 Last Admin: 12/27/20 07:31 Dose: 667 mg Documented by: Calcium Carbonate (Calcium Carbonate 500 Mg Chewable Tab) 500 mg PO DAILY CHENG Stop: 01/26/21 08:59 Last Admin: 12/27/20 07:31 Dose: 500 mg Documented by: Dextrose (Dextrose 50% 50 Ml Syringe) 25 - 50 ml IV UD PRN; Protocol PRN Reason: Hypoglycemia Protocol Stop: 01/25/21 20:31 Epoetin Terrell (Epoetin Terrell 20,000 Units/Ml Vial) 20,000 units IV 0800 CHENG Stop: 12/27/20 14:00 Glucagon (Glucagon For Inj 1 Mg Vial) 1 mg SQ UD PRN; Protocol PRN Reason: Hypoglycemia Protocol Stop: 01/25/21 20:31 Glucose (Glucose 10 Tabs/Tube) 4 - 8 tabs PO UD PRN; Protocol PRN Reason: Hypoglycemia Protocol Stop: 01/25/21 20:31 Glucose (Glucose 40% Gel 15 Gm Tube) 15 - 30 gm PO UD PRN; Protocol PRN Reason: Hypoglycemia Protocol Stop: 01/25/21 20:31 Heparin Sodium (Porcine) (Heparin Sod 5,000 Unit/0.5 Ml Vial) 5,000 units SQ Q8 CHENG Stop: 01/25/21 21:59 Last Admin: 12/27/20 06:33 Dose: 5,000 units Documented by: Heparin Sodium (Porcine) (Heparin Sod (Porcine) 1000 Unit/Ml) 1,000 units IV 0800 CHENG Stop: 12/27/20 14:00 Heparin Sodium (Porcine) (Heparin Sod (Porcine) 1000 Unit/Ml) 400 units IV Q1H CHENG Stop: 12/27/20 11:01 Hydralazine HCl (Hydralazine Hcl 25 Mg Tab) 25 mg PO BID CHENG Stop: 01/26/21 08:59 Last Admin: 12/27/20 07:31 Dose: 25 mg Documented by: Sodium Chloride (Nss 1000ml) 1,000 mls @ 0 mls/hr IV .Q0M PRN PRN Reason: For Hemodialysis Use ONLY Stop: 12/27/20 13:53 Insulin Aspart (Insulin Aspart 100 Units/Ml 3 Ml Pen) 0 units SC ACHS CHENG Stop: 01/25/21 21:14 Last Admin: 12/27/20 07:30 Dose: 7 units Documented by: Insulin Glargine (Insulin Glargine Solostar 100 Units/Ml 3 Ml Pen) 0 - 56 units SC DAILY CHENG Stop: 01/26/21 08:59 Last Admin: 12/27/20 07:30 Dose: Not Given Documented by: Lisinopril (Lisinopril 40 Mg Tab) 40 mg PO HS CHENG Stop: 01/25/21 20:59 Last Admin: 12/26/20 22:20 Dose: 40 mg Documented by: Lorazepam (Lorazepam 1 Mg Tab) 1 mg PO UD PRN PRN Reason: BEFORE DIALYSIS Stop: 01/25/21 20:59 Last Admin: 12/27/20 08:25 Dose: 1 mg Documented by: Metoprolol Succinate (Metoprolol Succ 50mg Ext Rel Tab) 50 mg PO BID CHENG Stop: 01/25/21 21:14 Last Admin: 12/27/20 07:31 Dose: 50 mg Documented by: Miscellaneous (Carbohydrates For Hypoglycemia ) 15 - 30 gm PO UD PRN PRN Reason: Hypoglycemia Protocol Stop: 01/25/21 20:31 Ondansetron HCl (Ondansetron Inj 2 Mg/Ml 2 Ml Vial) 4 mg IV Q6H PRN PRN Reason: Nausea Stop: 01/25/21 20:31 Polyethylene Glycol (Polyethylene (Miralax) 17 Gm Pack) 17 gm PO DAILY PRN PRN Reason: Constipation Stop: 01/25/21 20:31 Trazodone HCl (Trazodone Hcl 50 Mg Tab) 50 mg PO HS CHENG Stop: 01/25/21 20:59 Last Admin: 12/26/20 22:19 Dose: 50 mg Documented by: Vitamin B Complex/Folic Acid (Nephrocaps) 1 cap PO DAILY CHENG Stop: 01/26/21 08:59 Last Admin: 12/27/20 07:31 Dose: 1 cap Documented by:
[2020-12-27] MEDS: HEPARIN SOD (PORCINE) 1000 UNIT/ML IV SCH ×2 (10:49→10:50)
--- NOTE | 2020-12-27 16:39 | Discharge Summary ---
Date of Service December 27, 2020 Admission HPI Per Admitting Provider This is a 40yo M with a PMH of ESRD on HD MWF, type 2 diabetes, chronic respiratory failure with hypoxia, nonischemic cardiomyopathy, pulmonary sarcoidosis, hypertension and other medical problems listed below who presents from home with worsening shortness of breath. Wears home 2L NC oxygen at baseline but has been hypoxic in low 80s the past few days despite increasing it to 3 or 4L. Per chart review, in mid November patient was noted to not be staying for full dialysis sessions. He attributed this to restless leg syndrome and discomfort during session and was prescribed Requip, which he did not tolerate. Was also prescribed ativan to take before sessions which has helped and he has recently been completing full sessions. Had HD yesterday in [place]. Also follows with cardiology and was due for clinic visit last week but was unable to make appointment. Creatinine is 7.30 today (baseline mid 5-6s). Follows with PCP Dr. Lovelace and Dr. Thomson for nephrology. Besides feeling SOB, patient endorsing worsening pain in left hip with any type of movement. Due to start physical therapy soon. Denies any fever, chills, lightheadedness, headache, chest pain, wheezing, nausea, vomiting, abdominal pain, dysuria, diarrhea constipation. Feels that he is more fluid in his abdomen than usual. Admission Exam Per Admitting Provider General Appearance: WD/WN, vitals as above, NAD, sitting up in bed, pleasant, conversing easily Head: normocephalic, atraumatic Eyes: normal inspection, PERRL, conjunctivae normal, anicteric sclerae ENT: external ear and nose normal, oropharynx normal Neck: normal visual inspection, trachea midline, no thyromegaly Respiratory: normal respiratory effort, coarse breath sounds at bases, no whe cheryl, rales or rhonchi. No accessory muscle use Cardiovascular: regular rate, rhythm, no murmur, normal peripheral pulses, no BLE edema. Vessels: no JVD Chest: normal inspection of chest Abdomen/GI: normal bowel sounds, soft but distended with fluid, nontender, no hepatosplenomegaly Extremities/Musculoskeletal: +R arm AV fistula. No cyanosis or clubbing, extremities motor strength 5/5 Neurologic: PERRL, EOMI, accommodation nl, no face palsy, no dysarthria, CN's II-XI intact bilaterally and moves all extremities Psychiatric: A+Ox3, euthymic affect Skin: no rashes, normal color, warm/dry Principal Diagnosis Volume overload, end-stage renal disease on dialysis, HF exacerbation (chronic systolic HF) Discharge Exam General Appearance: WD/WN, NAD, currently on room air Head: normocephalic, atraumatic Eyes: normal inspection, PERRL, conjunctivae normal, anicteric sclerae ENT: external ear and nose normal, oropharynx normal Neck: normal visual inspection, trachea midline, no thyromegaly Respiratory: normal respiratory effort, no wheeze or rhonchi. Somewhat diminished at the bases. no accessory muscle use Cardiovascular: regular rate, rhythm, no murmur, normal peripheral pulses, no BLE edema. Vessels: no JVD Chest: normal inspection of chest Abdomen/GI: normal bowel sounds, soft, nontender Extremities/Musculoskeletal: +R arm AV fistula. No cyanosis or clubbing, extremities motor strength 5/5 Neurologic: PERRL, EOMI, no face palsy, no dysarthria, moves all extremities Psychiatric: A+Ox3, euthymic affect Skin: no rashes, normal color, warm/dry Discharge Data Allergies Allergy/AdvReac Type Severity Reaction Status Date / Time No Known Allergies Allergy Unknown Verified 12/26/20 13:58 Consultations 12/26/20 16:24 ED Decision to Admit Stat 12/26/20 20:32 Consult Nephrology Routine Hospital Course (1) Acute and chronic respiratory failure with hypoxia: This is a 40yo M with a PMH of ESRD on HD MWF, type 2 diabetes, chronic respiratory failure with hypoxia, nonischemic cardiomyopathy, pulmonary sarcoidosis, hypertension and other medical problems listed below who presents from home with worsening shortness of breath. On admission Hypoxic in low 80s the past few days despite increasing baseline O2 from 2L to 3-4L In setting of volume overload Appears comfortable resting with 95% saturation on 3L NC Expect improvement with diuresis, and HD 12/27 -patient underwent dialysis earlier this morning Currently he is on room air, satting 92% He is eager to be discharged home, says he will follow-up with his outpatient dialysis on Friday Nephrology made aware (2) Volume overload: In setting of renal failure, heart failure discussed below Still making some urine Given 40mg IV Lasix in ER - gave an additional 60mg IV Lasix and 5mg Metolazone per instruction from Dr. Xavier Appreciate nephrology input Monitor I&Os, daily weights Resume outpatient dialysis (3) Heart failure with reduced ejection fraction: Appears volume overloaded clinically on admission Pro BNP >35,000 CXR with cardiomegaly with pulmonary vascular congestion and suspected mild pulmonary edema Continue diuresis, monitor on telemetry Underwent dialysis today, plan to resume outpatient dialysis (4) End stage renal disease: HD MWF at [facility] Cr 7.3 (bl mid 5-6s) but appears stable, K 3.9, BP normotensive Discussed with Dr. Xavier, who plans to dialyze first thing tomorrow AM Continue renal diet, phos binders, diuresis Now status post dialysis earlier today, December 27, plan to resume outpatient dialysis (5) Sarcoidosis: Follows with Dr. Blackmon as outpatient Recent lung CT from November 2020 looks improved (6) Hypertension: Home regimen includes amlodipine HS, hydralazine BID, lisinopril HS and Toprol Normotensive currently and given additional IV Lasix Monitor BP - plan to hold evening dose of hydralazine (7) Diabetes: Type 1 DM - A1c 6.9 in 08/13 Repeat a1c pending Basal bolus insulin per protocol while in-patient BSG AC HS (8) Hip pain, left: Worsening L hip pain, due to start PT soon No recent imaging of hip as OP - will obtain XR Not prescribed narcotics by PCP Giving 1gm Tylenol now to start, ice PRN Currently no mention of left hip pain, and he is walking in the hallway without any difficulty (9) Anemia of chronic disease: Hgb improved slightly from baseline at 9 Monitor with daily CBC DVT Ppx: SQ heparin Code status: FULL PCP: Dr. Lovelace Dispo: Admitted to med tele Total Time Total Time Spent Total Time Spent (In Minutes): 40 Discharge Plan Discharge Items Patient Disposition: Home - Self-Care Reason For Visit: VOLUME OVERLOAD, ESRD ON PD Discharge Diagnosis: Volume overload, end-stage renal disease on dialysis, HF exacerbation (chronic systolic HF) Condition on Discharge: Good Activity: Per Instructions section Non-emergency contact: Primary Care Provider and [employer] Call non-emergency contact if: you have any medication questions and your symptoms worsen Follow-up/Referrals: Jaime Lovelace MD [Primary Care Provider] - Diet: Dialysis Renal Addtl Attending Provider Instructions: Make sure to follow-up with your dialysis, on Friday. You should also follow-up with your primary care doctor within 1 to 2 weeks. Fluid restriction is very important, as is sodium restriction. Monitor your weight daily to make sure you are not gaining any extra weight/fluid. Monitor your oxygen saturation at home as well. Make sure to discuss with your nursery laborer/kidney doctor if you are gaining any extra weight/fluid. Pending Studies at Discharge: No Stand-Alone Forms: My [facility] [place], Smoking Cessation Medications and DC Order Prescriptions: Continued Lantus Solostar U-100 Insulin 100 unit/mL (3 mL) Insulin Pen 56 unit SUBCUT DAILY RF: 0 calcium acetate(phosphat bind) 667 mg Tablet 1,334 mg PO UD RF: 0 amlodipine 10 mg Tablet 10 mg PO HS RF: 0 lisinopril 40 mg Tablet 40 mg PO HS RF: 0 hydralazine 25 mg Tablet 25 mg PO BID RF: 0 calcium carbonate [Tums] 200 mg calcium (500 mg) Tablet,Chewable 200 mg PO DAILY RF: 0 Myrna-Bello 0.8 mg Tablet 1 tab PO DAILY RF: 0 albuterol sulfate 90 mcg/actuation HFA aerosol inhaler 2 puff INHALATION Q6 PRN (Reason: Shortness Of Breath Or Wheezing) RF: 0 atorvastatin 40 mg tablet 40 mg PO PM RF: 0 lorazepam 1 mg tablet 1 mg PO UD RF: 0 insulin aspart U-100 [Novolog Flexpen U-100 Insulin] 100 unit/mL (3 mL) insulin pen 16 unit SUBCUT AC RF: 0 metoprolol succinate 50 mg tablet extended release 24 hr 50 mg PO BID RF: 0 torsemide 100 mg tablet 100 mg PO DAILY RF: 0 calcium acetate(phosphat bind) 667 mg Tablet 667 mg PO TID RF: 0 trazodone 50 mg tablet 50 mg PO HS RF: 0 aspirin 81 mg Tablet 81 mg PO DAILY RF: 0 Discharge Orders: Discharge Order (Routine); Ordered 12/27/20 Ordered By: Antoine Heller Admission Data Admit Date/Time: 12/26/20 17:03 Attending Provider: Antoine Heller Admit Provider: Aren Kate Primary Care Provider: Jaime Lovelace Other Providers: Aren Kate ; Porfirio Xavier
--- NOTE | 2020-12-27 17:06 | Communication Note ---
Date of Service: December 27, 2020 By CMS guidelines, a determination that the admission or continued stay is not medically necessary has been made by a member of the Utilization Review comm jarret and a physician for this hospital stay. He is a hemodialysis patient who came in with fluid overload. He underwent HD with 3.5L taken off. Per primary physician he appears more compensated and is eager to get home, and the plan was discussed with Nephrology. Therefore, a Code 44 will be completed and the inpatient admission will be changed to outpatient. Yvette Montero DO [facility] Hospitalist
--- NOTE | 2020-12-29 06:06 | Electrocardiogram Report ---
Test Reason : Blood Pressure : / mmHG Vent. Rate : 084 BPM Atrial Rate : 084 BPM P-R Int : 160 ms QRS Dur : 088 ms QT Int : 414 ms P-R-T Axes : 044 -12 062 degrees QTc Int : 489 ms Normal sinus rhythm Possible Left atrial enlargement Prolonged QT Abnormal ECG When compared with ECG of 17-OCT-2020 04:35, No significant change was found Confirmed by Raghu Oconnell ([id number]) on 12/29/2020 6:06:06 AM Referred By: Confirmed By:Raghu Oconnell
== END 2020-12-27 16:30 | disposition home or self-care (01) ==
LOC: ED 13:02 → SUATTDRO 17:03 → 2W 17:03 → INTOOBSV 17:03 → 2W 19:50

== ENCOUNTER 2021-01-18 10:53 | Inpatient (IN) ==
[2021-01-18] MEDS ORDERED: PANTOprazole 80 MG in DEXTROSE 5% 100 ML IV STA (12:23)
[2021-01-18] MEDS ORDERED: SODIUM CHLORIDE 0.9% 250 ML IV PRN ×3 (12:26→13:57)
[2021-01-18] MEDS ORDERED: ACETAMINOPHEN 500 MG TAB PO STA (12:27)
[2021-01-18 12:59] LABS: Basophils # (auto) 0.06 K/uL (0-0.2); Basophils % (auto) 0.5 %; Eosinophils # (auto) 0.56 K/uL (0-0.5); Eosinophils % (auto) 4.8 %; Hematocrit (blood only) 23.7 % (42-52); Hemoglobin 7.9 g/dL (14.0-18.0); Immature Granulocytes # (auto) 0.12 K/uL (0.00-0.02); Lymphocytes # (auto) 1.36 K/uL (1.2-3.4); Lymphocytes % (auto) 11.7 %; Mean Corpuscular Hemoglobin 30.4 pg (25-34); Mean Corpuscular Hgb Conc 33.3 g/dL (32-36); Mean Corpuscular Volume 91.2 fL (80-100); Mean Platelet Volume 9.2 fL (7.4-10.4); Monocytes # (auto) 0.57 K/uL (0.11-0.59); Monocytes % (auto) 4.9 %; Neutrophils # (auto) 8.96 K/uL (1.4-6.5); Neutrophils % (auto) 77.1 %; Platelet Count 277 K/uL (130-400); RDW Coefficient of Variation 16.4 % (11.5-14.5); RDW Standard Deviation 54.6 fL (36.4-46.3); White Blood Count 11.63 K/uL (4.8-10.8)
[2021-01-18 13:02] LABS: INR 0.9 (0.9-1.1); Prothrombin Time 9.3 Seconds (9.0-12.0)
--- NOTE | 2021-01-18 13:20 | XRay Report ---
SINGLE VIEW CHEST CLINICAL HISTORY: Generalized weakness. FINDINGS: An AP, portable, upright chest radiograph is compared to study dated 12/26/2020 and correlate d with chest CT dated 10/13/2020. The heart is enlarged. There is pulmonary vascular congestion. No ai rspace consolidation or large pleural effusion is identified. No pneumothorax is seen. There is chron ic posttraumatic deformity of the right clavicle. IMPRESSION: Cardiomegaly with evidence of congestive failure. ACT 112: Negative or not required by law. Electronically signed by: Marco Mejia M.D. 01/18/2021 1:19 PM
[2021-01-18 13:36] LABS: Alanine Aminotransferase 22 U/L (12-78); Albumin Globulin Ratio 1.1 (0.9-2); Albumin Level 3.8 gm/dl (3.4-5.0); Alkaline Phosphatase 76 U/L (45-117); Aspartate Aminotransferase 12 U/L (15-37); BUN Creatinine Ratio 4.2 (10-20); Bilirubin,Total 0.9 mg/dl (0.2-1); Blood Urea Nitrogen 29 mg/dl (7-18); Calcium 9.3 mg/dl (8.5-10.1); Carbon Dioxide 32 mmol/L (21-32); Chloride 102 mmol/L (98-107); Creatinine Clr Calc Pharmacy 17.2 ml/min; Est GFR (African American) 10.6 ml/min; Est GFR (Non-African American) 9.1 ml/min; Globulin 3.5 gm/dl (2.5-4.0); Glucose 50 mg/dl (70-99); Magnesium 2.1 mg/dl (1.8-2.4); Potassium 3.4 mmol/L (3.5-5.1); Sodium 140 mmol/L (136-145); Total Protein 7.3 gm/dl (6.4-8.2); Troponin I < 0.015 ng/ml (0-0.045)
--- NOTE | 2021-01-18 14:31 | History & Physical Report ---
Date of Service January 18, 2021 Assessment & Plan (1) Symptomatic anemia: Plan: This is a 40yo M with a PMH of ESRD on HD MWF, type 2 diabetes, chronic respiratory failure with hypoxia on 3L NC O2, nonischemic cardiomyopathy, pulmonary sarcoidosis, hypertension and other medical problems listed below who presents from home with abnormal lab work. Symptomatic anemia Possible GI bleed Reporting dark stools for month in setting of iron supplementation, had large episode of BRBPR earlier this week Outpatient hgb of 7 - directed to come to ER for further evaluation PCP recently ordered outpatient colonoscopy, has not been scheduled yet Type & crossed for 1u prbcs - repeat H&H tomorrow morning Received protonix bolus in ER Routine GI consult - NPO after midnight Chronic respiratory failure with hypoxia Baseline 3L NC O2 In setting of volume overload Appears comfortable resting with 98% saturation on 3L NC Expect improvement with diuresis, HD tomorrow Acute decompensated Heart failure with reduced ejection fraction In setting of renal failure, heart failure Still making some urine, on torsemide 100mg HS CXR with cardiomegaly with evidence of congestive failure Given 100mg IV Lasix in ER per instruction from Dr. Xavier Appreciate nephrology input Monitor I&Os, daily weights End stage renal disease on HD HD MWF at [facility] Cr 6.96 (bl mid 5-6s), K 3.4, BP 172/97 Nephrology consulted Due for HD tomorrow Continue renal diet, phos binders, diuresis Sarcoidosis Follows with Dr. Blackmon as outpatient Recent lung CT from November 2020 looks improved Hypertension Home regimen includes amlodipine HS, hydralazine BID, lisinopril HS and Toprol Given additional IV Lasix Monitor BP Diabetes Type 1 DM - A1c 6.9 in 08/13 Repeat a1c pending Hypoglycemic episode in ER - given diet Glycemic consult placed BSG AC HS Anemia of chronic disease Hgb currently 7.9 (baseline mid 8-9) Receives iron supplementation at HD Monitor with daily CBC DVT Ppx: SCDs given anemia, possible GI bleed Code status: FULL PCP: Radu Dispo: Admitted to [facility] tele Patient seen in collaboration with Dr. Kate. Please see addendum. History of Present Illness Chief Complaint: dark stools, SOB Primary Care Provider: Jaime Lovelace MD This is a 40yo M with a PMH of ESRD on HD MWF, type 2 diabetes, chronic res piratory failure with hypoxia on 3L NC O2, nonischemic cardiomyopathy, pulmonary sarcoidosis, hypertension and other medical problems listed below who presents from home with abnormal labwork. Outpatient labs from earlier this week showed hgb of 7. Reports dark stools for past few months in setting of receiving mircera and iron. Was directed to come to ER for further evaluation. Reports one large episode of bright red blood in toilet a few days ago with clots present. Had not previously been agreeable to colonoscopy but is now willing. OP c-scope scheduled but not yet performed. Patient feeling more SOB recently when lying down. Is on 3L NC O2 at baseline now. Takes torsemide 100mg every evening and makes a small amount of urine. Does not use salt on foods but admits to eating a lot of processed and packaged foods, like hot dogs. Denies any fever, chills, lightheadedness, headache, chest pain, wheezing, nausea, vomiting, abdominal pain, dysuria or constipation. Reports loose stools lately. Feels that he is more fluid in his abdomen than usual. Allergies Allergy/AdvReac Type Severity Reaction Status Date / Time No Known Allergies Allergy Unknown Verified 01/18/21 13:12 Home Medications Medication Instructions Recorded Confirmed Type insulin glargine 100 unit/mL (3 56 unit SUBCUT QAM 05/24/19 01/18/21 History mL) subcutaneous pen (Lantus Solostar U-100 Insulin) amlodipine 10 mg tablet 10 mg PO HS 06/11/19 01/18/21 History calcium acetate(phosphat bind) 667 1,334 mg PO AC 06/11/19 01/18/21 History mg tablet lisinopril 40 mg tablet 40 mg PO HS 06/11/19 01/18/21 History calcium carbonate 200 mg calcium 200 mg PO DAILY PRN 02/03/20 01/18/21 History (500 mg) chewable tablet (Tums) hydralazine 25 mg tablet 25 mg PO BID 02/03/20 01/18/21 History vitamin B complex-vitamin C-folic 1 tab PO PM 02/03/20 01/18/21 History acid 0.8 mg tablet (Myrna-Bello) albuterol sulfate 90 mcg/actuation 2 puff INHALATION Q6 PRN 10/13/20 01/18/21 History aerosol inhaler atorvastatin 40 mg tablet 40 mg PO PM 10/13/20 01/18/21 History insulin aspart U-100 100 unit/mL 16 unit SUBCUT AC 10/13/20 01/18/21 History (3 mL) subcutaneous pen (Novolog Flexpen U-100 Insulin aspart) lorazepam 1 mg tablet 1 mg PO UD 10/13/20 01/18/21 History metoprolol succinate 50 mg 50 mg PO BID 10/13/20 01/18/21 History tablet,extended release 24 hr torsemide 100 mg tablet 100 mg PO PM 10/13/20 01/18/21 History aspirin 81 mg tablet 81 mg PO QAM 12/26/20 01/18/21 History trazodone 50 mg tablet 50 mg PO HS 12/26/20 01/18/21 History ferric citrate 210 mg iron tablet 420 mg PO AC 01/18/21 01/18/21 History (Auryxia) Past Med/Surg History Medical History A-V fistula right Abnormal CT scan of lung Anemia Chronic respiratory failure with hypoxia Diabetes IDDM (Type 1 per records) Dyslipidemia End stage renal disease diaylsis - M,W,F ([facility], [place]) Heart failure with reduced ejection fraction Hypertension Obesity Sarcoidosis per records Seizure disorder remote hx (2007) in setting of hypoglycemia (?ETOH related per records), no issues since Surgical History History of vascular access device permacath insertion Hx of biopsy kidney bx PONV (postoperative nausea and vomiting) Status post creation of arteriovenous fistula right: 07/15/17: MAC sedation at [facility] Family History Father Hypertension Social History Smoking Status: Never smoker Years Smoked: 2; Second Hand Exposure: No; Hx Alcohol Use: No Hx Substance Use: No Preferred Language: Danish Communication Ability: Effective Electric Distribution Checker Required: No Beliefs That Will Affect Care: None Current Living Situation: Other Current Living Situation Comment: 2story house with roommates. Feels Safe at Home: Yes Assistive Devices: None Review of Systems Review of Systems: At least ten systems reviewed and negative except as noted in the HPI. Physical Exam Physical Exam: General Appearance: WD/WN, vitals as above, NAD, sitting up in bed, pleasant, conversing easily Head: normocephalic, atraumatic Eyes: normal inspection, PERRL, conjunctivae normal, anicteric sclerae ENT: external ear and nose normal, oropharynx normal Neck: normal visual inspection, trachea midline, no thyromegaly Respiratory: normal respiratory effort, diminished, coarse breath sounds at bases, no wheeze, rales or rhonchi. No accessory muscle use Cardiovascular: regular rate, rhythm, no murmur, normal peripheral pulses, no BLE edema. Vessels: no JVD Chest: normal inspection of chest Abdomen/GI: normal bowel sounds, soft but distended with fluid, nontender, no hepatosplenomegaly Extremities/Musculoskeletal: +R arm AV fistula. No cyanosis or clubbing, extremities motor strength 5/5 Neurologic: PERRL, EOMI, accommodation nl, no face palsy, no dysarthria, CN's II-XI intact bilaterally and moves all extremities Psychiatric: A+Ox3, euthymic affect Skin: no rashes, normal color, warm/dry Results & Data Results & Data ([facility]) Vital Signs (Past 12 Hours) Vital Signs Temp Pulse Pulse Resp BP BP Pulse Ox 01/18/21 14:00 164/71 H 01/18/21 13:30 155/75 H 94 01/18/21 13:26 88 14 163/71 H 94 01/18/21 12:42 95 H 23 161/87 H 85 L 01/18/21 11:19 36.5 C 83 16 135/72 97 Laboratory Results Short CBC 01/18/21 01/18/21 01/18/21 Range/Units 12:32 12:34 12:34 WBC 11.63 H (4.8-10.8) K/uL Hgb 7.9 L (14.0-18.0) g/dL Hct 23.7 L (42-52) % Plt Count 277 (130-400) K/uL POC Glucose 52 L* 68 L* (70-99) mg/dl BMP 01/18/21 12:34 Sodium 140 Potassium 3.4 L Chloride 102 Carbon Dioxide 32 BUN 29 H Creatinine 6.96 H* Glucose 50 L* Calcium 9.3 Cardiac Enzymes 01/18/21 Range/Units 12:34 Troponin I < 0.015 (0-0.045) ng/ml Liver Function 01/18/21 Range/Units 12:34 Total Bilirubin 0.9 (0.2-1) mg/dl AST 12 L (15-37) U/L ALT 22 (12-78) U/L Alkaline Phosphatase 76 (45-117) U/L Albumin 3.8 (3.4-5.0) gm/dl Diagnostic Findings Chest X-Ray 01/18/21 12:23 SINGLE VIEW CHEST CLINICAL HISTORY: Generalized weakness. FINDINGS: An AP, portable, upright chest radiograph is compared to study dated 12/26/2020 and correlated with chest CT dated 10/13/2020. The heart is enlarged. There is pulmonary vascular congestion. No airspace consolidation or large pleural effusion is identified. No pneumothorax is seen. There is chronic posttraumatic deformity of the right clavicle. IMPRESSION: Cardiomegaly with evidence of congestive failure. ACT 112: Negative or not required by law. Electronically signed by: Marco Mejia M.D. 01/18/2021 1:19 PM Code Status & VTE Plan VTE Prophylaxis Plan VTE Prophylaxis will be ordered: Yes Supervising Physician Co-Signing Physician Notes Attending addendum The patient was seen and examined in medical floor He was admitted with 1 episode of bright red blood per rectum on Friday and ongoing black stool since then Denies any pain associated with the bleeding and denies any other symptoms except headache for the last few days On examination His blood pressure was noted to be high otherwise stable Chestclear to auscultate bilaterally HeartS1-S2, regular Abdomendistended, soft and bowel sound present Extremitiestrace edema bilaterally His admission labs, imaging studies noted Has acute GI blood loss in the form of bright light blood per rectum with low hemoglobin of 7.9 Received 1 unit of blood for symptoms relief Has end-stage renal disease on hemodialysis and nephrology been consulted Ongoing headache is and is not controlled with Tylenol Agree with assessment and plan as outlined above by RUBINA Villar Dr
[2021-01-18] MEDS ORDERED: oxyCODONE HCL IR 5 MG TAB (IMMEDIATE RELEASE) PO STA (15:07)
[2021-01-18] MEDS ORDERED: PHARMACY GLYCEMIC MGMT CONSULT PRN ×2 (15:16→17:00)
[2021-01-18] MEDS ORDERED: FUROSEMIDE 40 MG/4 ML VIAL IV STA (15:21)
[2021-01-18] MEDS ORDERED: ALBUTEROL HFA 8 GM INHALER INH PRN (16:04)
[2021-01-18] MEDS ORDERED: CALCIUM CARBONATE 500 MG CHEWABLE TAB PO PRN (16:04)
[2021-01-18] MEDS ORDERED: CARBOHYDRATES FOR HYPOGLYCEMIA PO PRN (16:50)
[2021-01-18] MEDS ORDERED: POLYETHYLENE (MIRALAX) 17 GM PACK PO PRN (16:50)
[2021-01-18] MEDS ORDERED: GLUCOSE 10 TABS/TUBE PO PRN (16:50)
[2021-01-18] MEDS ORDERED: DEXTROSE 50% 50 ML SYRINGE IV PRN (16:50)
[2021-01-18] MEDS ORDERED: GLUCOSE 40% GEL 15 GM TUBE PO PRN (16:50)
[2021-01-18] MEDS ORDERED: GLUCAGON FOR INJ 1 MG VIAL SQ PRN (16:50)
[2021-01-18 17:00] LABS: Hepatitis B Surface Antibody Immune
[2021-01-18] MEDS ORDERED: CALCIUM ACETATE 667 MG CAP/TAB PO PRN (17:02)
[2021-01-18 17:11] LABS: Hepatitis B Surf Ag Rflx Conf Neg (Neg)
[2021-01-18] MEDS ORDERED: hydrALAZINE HCL 20 MG/ML VIAL IV STA (17:15)
[2021-01-18] MEDS ORDERED: oxyCODONE HCL IR 5 MG TAB (IMMEDIATE RELEASE) PO ONE (17:45)
--- NOTE | 2021-01-18 18:19 | Emergency Department Note ---
History of Present Illness General Chief complaint: Referred by Doctor Stated complaint: LOW BLOOD COUNT Time Seen by Provider: 01/18/21 12:09 Source: patient and RN notes reviewed Mode of arrival: ambulatory Limitations: patient cooperation History of Present Illness Maximum Pain Intensity: 10 This patient is a 40-year-old male who presents to the emergency department with complaints of reports of anemia after a phone call from his physician today. Patient states he is on dialysis and takes an iron supplement. He states he has had dark stools for years. He states he has been feeling fatigued but cannot describe much further. He is a difficult historian. Patient states he is diabetic and does not take any blood thinners. He denies any vomiting or bright red blood by mouth or rectum. He denies any significant chest pain or shortness of breath but does have exertional fatigue. Home Medications Medication Instructions Recorded Confirmed Type insulin glargine 100 unit/mL (3 56 unit SUBCUT QAM 05/24/19 01/18/21 History mL) subcutaneous pen (Lantus Solostar U-100 Insulin) amlodipine 10 mg tablet 10 mg PO HS 06/11/19 01/18/21 History calcium acetate(phosphat bind) 667 1,334 mg PO AC 06/11/19 01/18/21 History mg tablet lisinopril 40 mg tablet 40 mg PO HS 06/11/19 01/18/21 History calcium carbonate 200 mg calcium 200 mg PO DAILY PRN 02/03/20 01/18/21 History (500 mg) chewable tablet (Tums) hydralazine 25 mg tablet 25 mg PO BID 02/03/20 01/18/21 History vitamin B complex-vitamin C-folic 1 tab PO PM 02/03/20 01/18/21 History acid 0.8 mg tablet (Myrna-Bello) albuterol sulfate 90 mcg/actuation 2 puff INHALATION Q6 PRN 10/13/20 01/18/21 History aerosol inhaler atorvastatin 40 mg tablet 40 mg PO PM 10/13/20 01/18/21 History insulin aspart U-100 100 unit/mL 16 unit SUBCUT AC 10/13/20 01/18/21 History (3 mL) subcutaneous pen (Novolog Flexpen U-100 Insulin aspart) lorazepam 1 mg tablet 1 mg PO UD 10/13/20 01/18/21 History metoprolol succinate 50 mg 50 mg PO BID 10/13/20 01/18/21 History tablet,extended release 24 hr torsemide 100 mg tablet 100 mg PO PM 10/13/20 01/18/21 History aspirin 81 mg tablet 81 mg PO QAM 12/26/20 01/18/21 History trazodone 50 mg tablet 50 mg PO HS 12/26/20 01/18/21 History ferric citrate 210 mg iron tablet 420 mg PO AC 01/18/21 01/18/21 History (Auryxia) Allergies Allergy/AdvReac Type Severity Reaction Status Date / Time No Known Allergies Allergy Unknown Verified 01/18/21 13:12 Past Med/Surg History Medical History A-V fistula right Abnormal CT scan of lung Anemia Chronic respiratory failure with hypoxia Diabetes IDDM (Type 1 per records) Dyslipidemia End stage renal disease diaylsis - M,W,F ([facility], [place]) Heart failure with reduced ejection fraction Hypertension Obesity Sarcoidosis per records Seizure disorder remote hx (2007) in setting of hypoglycemia (?ETOH related per records), no issues since Surgical History History of vascular access device permacath insertion Hx of biopsy kidney bx PONV (postoperative nausea and vomiting) Status post creation of arteriovenous fistula right: 07/15/17: MAC sedation at [facility] Family History Father Hypertension Social History Smoking Status: Former smoker Years Smoked: 2; Second Hand Exposure: No; Do You Dip or Chew Tobacco: Yes; Tobacco Cessation Education Requested by Patient: No Hx Alcohol Use: Yes Hx Substance Use: No Preferred Language: Bulgarian Communication Ability: Effective Quantitative Research Analyst Required: No Beliefs That Will Affect Care: None Current Living Situation: Other Current Living Situation Comment: Roommate Other Information That Helps Us Care for You: No Feels Safe at Home: Yes Safety Concerns: Feels Safe At This Time Assistive Devices: Glasses Review of Systems See HPI for pertinent positives & negatives. and A total of 10 systems reviewed and were otherwise negative Physical Exam Vital Signs Vital Signs - 24 hr 01/18/21 11:19 01/18/21 12:42 01/18/21 13:26 Temperature 36.5 C Temperature Source Temporal Artery Scan Pulse Rate 83 Pulse Rate [Apical] 95 H 88 Pulse Rate from SpO2 Sensor Respiratory Rate 16 23 14 Respiratory Effort / Characteristics Non-Labored Respiratory Depth Normal Blood Pressure 135/72 Blood Pressure [Left Arm] 161/87 H 163/71 H Blood Pressure Mean 93 Blood Pressure Mean [Left Arm] 111 101 Pulse Oximetry 97 85 L 94 Oxygen Delivery Method Room Air Nasal Cannula Nasal Cannula Oxygen Flow Rate 0 2 Sepsis Recent Fever Within 48 Hours No Sepsis New/Unexplained Change in Mental Status No Sepsis Action Taken by Nursing No Action Required Oxygen Flow Rate - Titration 2 Pulse Oximetry Post Tiitration 95 01/18/21 13:30 01/18/21 14:00 Temperature Temperature Source Pulse Rate Pulse Rate [Apical] Pulse Rate from SpO2 Sensor 82 89 Respiratory Rate Respiratory Effort / Characteristics Respiratory Depth Blood Pressure 155/75 H 164/71 H Blood Pressure [Left Arm] Blood Pressure Mean 101 102 Blood Pressure Mean [Left Arm] Pulse Oximetry 94 Oxygen Delivery Method Nasal Cannula Oxygen Flow Rate 2 Sepsis Recent Fever Within 48 Hours Sepsis New/Unexplained Change in Mental Status Sepsis Action Taken by Nursing Oxygen Flow Rate - Titration Pulse Oximetry Post Tiitration Vital signs reviewed. General: Chronically ill-appearing 40-year-old male, in no significant distress. HEENT: No scleral icterus, PERRLA, neck supple. Atraumatic. Cardiovascular: Regular rate and rhythm, no extra sounds. Pulmonary: Clear to auscultation bilaterally, normal work of breathing. Abdomen: Soft, somewhat obese, distended, nontender, positive bowel sounds. Musculoskeletal: Atraumatic, no peripheral edema. Rectal: Limited due to patient inability to cooperate, guaiac positive greenish stool Neurologic: Patient awake alert and oriented x 3 Skin: Warm, dry, no rash Course Administered Medications Acetaminophen (Acetaminophen 325 Mg Tab) 650 mg PO Q6H PRN PRN Reason: Fever/pain Stop: 02/17/21 19:58 Last Admin: 01/21/21 12:55 Dose: 650 mg Documented by: [id number] Admin: 01/20/21 15:44 Dose: 650 mg Documented by: [id number] Admin: 01/18/21 20:09 Dose: 650 mg Documented by: [id number] Amlodipine Besylate (Amlodipine Besylate 5 Mg Tab) 10 mg PO HS [facility] Stop: 02/17/21 20:59 Last Admin: 01/21/21 20:37 Dose: 10 mg Documented by: [id number] Admin: 01/20/21 20:37 Dose: 10 mg Documented by: [id number] Admin: 01/19/21 21:20 Dose: 10 mg Documented by: [id number] Admin: 01/18/21 20:10 Dose: 10 mg Documented by: [id number] Atorvastatin Calcium (Atorvastatin 40 Mg Tab) 40 mg PO PM CHENG Stop: 02/17/21 20:59 Last Admin: 01/21/21 20:37 Dose: 40 mg Documented by: [id number] Admin: 01/20/21 20:37 Dose: 40 mg Documented by: [id number] Admin: 01/19/21 21:21 Dose: 40 mg Documented by: [id number] Admin: 01/18/21 20:10 Dose: 40 mg Documented by: [id number] Calcium Acetate (Calcium Acetate 667 Mg Cap/Tab) 1,334 mg PO AC CHENG Stop: 02/17/21 17:29 Last Admin: 01/22/21 07:29 Dose: 1,334 mg Documented by: [id number] Admin: 01/21/21 18:01 Dose: 1,334 mg Documented by: [id number] Admin: 01/21/21 12:09 Dose: 1,334 mg Documented by: [id number] Admin: 01/21/21 08:28 Dose: 1,334 mg Documented by: [id number] Admin: 01/20/21 17:18 Dose: 1,334 mg Documented by: [id number] Admin: 01/20/21 12:35 Dose: 1,334 mg Documented by: [id number] Admin: 01/20/21 08:41 Dose: 1,334 mg Documented by: [id number] Admin: 01/19/21 15:39 Dose: 1,334 mg Documented by: [id number] Admin: 01/19/21 12:43 Dose: Not Given Documented by: [id number] Admin: 01/19/21 08:35 Dose: Not Given Documented by: [id number] Admin: 01/18/21 18:54 Dose: 1,334 mg Documented by: [id number] Hydralazine HCl (Hydralazine Tab 50 Mg Tab) 50 mg PO BID CHENG Stop: 02/17/21 20:59 Last Admin: 01/22/21 07:29 Dose: 50 mg Documented by: [id number] Admin: 01/21/21 20:37 Dose: 50 mg Documented by: [id number] Admin: 01/21/21 08:29 Dose: 50 mg Documented by: [id number] Admin: 01/20/21 20:36 Dose: 50 mg Documented by: [id number] Admin: 01/20/21 08:41 Dose: 50 mg Documented by: [id number] Admin: 01/19/21 21:21 Dose: 50 mg Documented by: [id number] Admin: 01/19/21 08:35 Dose: Not Given Documented by: [id number] Admin: 01/18/21 20:10 Dose: 50 mg Documented by: [id number] Hydromorphone HCl (Hydromorphone Inj 0.5 Mg/0.5 Ml Syr) 0.5 mg IV Q6H PRN PRN Reason: Pain Stop: 02/03/21 23:56 Last Admin: 01/21/21 00:07 Dose: 0.5 mg Documented by: [id number] Pantoprazole Sodium 40 mg/ (Syringe) 10 mls @ 5 mls/min IV BID CHENG Stop: 02/18/21 20:59 Last Admin: 01/22/21 07:29 Dose: 5 mls/min Documented by: [id number] Admin: 01/21/21 20:36 Dose: 5 mls/min Documented by: [id number] Admin: 01/21/21 08:30 Dose: 5 mls/min Documented by: [id number] Admin: 01/20/21 20:35 Dose: 5 mls/min Documented by: [id number] Admin: 01/20/21 08:40 Dose: 5 mls/min Documented by: [id number] Admin: 01/19/21 21:21 Dose: 5 mls/min Documented by: [id number] Insulin Aspart (Insulin Aspart 100 Units/Ml 3 Ml Pen) 0 units SC Q6 CHENG Stop: 02/21/21 05:59 Last Admin: 01/22/21 05:58 Dose: Not Given Documented by: [id number] Insulin Glargine (Insulin Glargine Solostar 100 Units/Ml 3 Ml Pen) 0 units SC QAM CHENG; Protocol Stop: 02/18/21 08:59 Last Admin: 01/22/21 08:40 Dose: Not Given Documented by: [id number] Admin: 01/21/21 08:38 Dose: Not Given Documented by: [id number] Admin: 01/20/21 08:42 Dose: 25 units Documented by: [id number] Cosigned by: [id number] Admin: 01/19/21 08:35 Dose: 38 units Documented by: [id number] Cosigned by: [id number] Insulin Glargine (Insulin Glargine Solostar 100 Units/Ml 3 Ml Pen) 0 units SC HS CHENG; Protocol Stop: 02/19/21 20:59 Last Admin: 01/21/21 20:38 Dose: 15 units Documented by: [id number] Cosigned by: [id number] Admin: 01/20/21 20:39 Dose: 15 units Documented by: [id number] Cosigned by: [id number] Lisinopril (Lisinopril 40 Mg Tab) 40 mg PO HS CHENG Stop: 02/17/21 20:59 Last Admin: 01/21/21 20:36 Dose: 40 mg Documented by: [id number] Admin: 01/20/21 20:36 Dose: 40 mg Documented by: [id number] Admin: 01/19/21 21:21 Dose: 40 mg Documented by: [id number] Admin: 01/18/21 20:10 Dose: 40 mg Documented by: [id number] Melatonin (Melatonin 3 Mg Tab) 3 mg PO HS PRN PRN Reason: Sleep Stop: 02/19/21 22:02 Last Admin: 01/20/21 22:54 Dose: 3 mg Documented by: [id number] Metoprolol Succinate (Metoprolol Succ 50mg Ext Rel Tab) 50 mg PO BID CHENG Stop: 02/17/21 20:59 Last Admin: 01/22/21 07:29 Dose: 50 mg Documented by: [id number] Admin: 01/21/21 20:36 Dose: 50 mg Documented by: [id number] Admin: 01/21/21 08:29 Dose: 50 mg Documented by: [id number] Admin: 01/20/21 20:37 Dose: 50 mg Documented by: [id number] Admin: 01/20/21 08:42 Dose: 50 mg Documented by: [id number] Admin: 01/19/21 21:56 Dose: 50 mg Documented by: [id number] Admin: 01/19/21 08:35 Dose: Not Given Documented by: [id number] Admin: 01/18/21 20:10 Dose: 50 mg Documented by: [id number] Oxycodone HCl (Oxycodone Hcl Ir 5 Mg Tab (Immediate Release)) 5 mg PO Q4H PRN PRN Reason: Pain Stop: 02/03/21 23:57 Last Admin: 01/22/21 09:19 Dose: 5 mg Documented by: [id number] Admin: 01/21/21 20:31 Dose: 5 mg Documented by: [id number] Sumatriptan Succinate (Sumatriptan Succinate 50 Mg Tab) 50 mg PO BID PRN PRN Reason: Migraine Headache Stop: 02/18/21 18:31 Last Admin: 01/19/21 21:18 Dose: 50 mg Documented by: [id number] Torsemide (Torsemide 100 Mg Tab) 100 mg PO PM CHENG Stop: 02/17/21 20:59 Last Admin: 01/21/21 20:39 Dose: 100 mg Documented by: [id number] Admin: 01/20/21 20:36 Dose: 100 mg Documented by: [id number] Admin: 01/19/21 21:20 Dose: 100 mg Documented by: [id number] Admin: 01/18/21 20:10 Dose: 100 mg Documented by: [id number] Trazodone HCl (Trazodone Hcl 50 Mg Tab) 50 mg PO HS CHENG Stop: 02/17/21 20:59 Last Admin: 01/21/21 20:36 Dose: 50 mg Documented by: [id number] Admin: 01/20/21 20:35 Dose: 50 mg Documented by: [id number] Admin: 01/19/21 21:20 Dose: 50 mg Documented by: [id number] Admin: 01/18/21 20:10 Dose: 50 mg Documented by: [id number] Vitamin B Complex/Folic Acid (Nephrocaps) 1 cap PO PM CHENG Stop: 02/17/21 20:59 Last Admin: 01/21/21 20:36 Dose: 1 cap Documented by: [id number] Admin: 01/20/21 20:36 Dose: 1 cap Documented by: [id number] Admin: 01/19/21 21:21 Dose: 1 cap Documented by: [id number] Admin: 01/18/21 20:10 Dose: 1 cap Documented by: [id number] Discontinued Medications Acetaminophen (Acetaminophen 500 Mg Tab) 1,000 mg PO NOW STA Stop: 01/18/21 12:28 Last Admin: 01/18/21 13:12 Dose: 1,000 mg Documented by: [id number] Epoetin Terrell (Epoetin Terrell 20,000 Units/Ml Vial) 20,000 units IV 929 CHENG Stop: 01/19/21 16:00 Last Admin: 01/19/21 13:40 Dose: 20,000 units Documented by: [id number] Furosemide (Furosemide 40 Mg/4 Ml Vial) 100 mg IV NOW STA Stop: 01/18/21 15:22 Last Admin: 01/18/21 15:46 Dose: 100 mg Documented by: [id number] Heparin Sodium (Porcine) (Heparin Sod (Porcine) 1000 Unit/Ml) 2,000 units IV ONE ONE Stop: 01/19/21 09:08 Last Admin: 01/19/21 12:37 Dose: Not Given Documented by: [id number] Hydralazine HCl (Hydralazine Hcl 20 Mg/Ml Vial) 10 mg IV NOW STA Stop: 01/18/21 17:16 Last Admin: 01/18/21 17:49 Dose: 10 mg Documented by: [id number] Hydromorphone HCl (Hydromorphone Inj 0.5 Mg/0.5 Ml Syr) 0.5 mg IV Q6H PRN PRN Reason: Pain Stop: 02/02/21 00:20 Last Admin: 01/20/21 01:39 Dose: 0.5 mg Documented by: [id number] Admin: 01/19/21 18:09 Dose: 0.5 mg Documented by: [id number] Admin: 01/19/21 01:28 Dose: 0.5 mg Documented by: [id number] Hydromorphone HCl (Hydromorphone Inj 0.5 Mg/0.5 Ml Syr) 0.5 mg IV NOW STA Stop: 01/19/21 09:53 Last Admin: 01/19/21 10:15 Dose: 0.5 mg Documented by: [id number] Pantoprazole Sodium 80 mg/ (Dextrose) 100 mls @ 400 mls/hr IV ONE STA Stop: 01/18/21 12:37 Last Infusion: 01/18/21 13:27 Dose: 0 mls/hr Documented by: [id number] Admin: 01/18/21 13:12 Dose: 400 mls/hr Documented by: [id number] Insulin Aspart (Insulin Aspart 100 Units/Ml 3 Ml Pen) 0 units SC ACHS [facility] Stop: 02/17/21 20:59 Last Admin: 01/18/21 21:05 Dose: 5 units Documented by: [id number] Cosigned by: [id number] Insulin Aspart (Insulin Aspart 100 Units/Ml 3 Ml Pen) 0 units SC TODAY@0200 ONE Stop: 01/19/21 02:01 Last Admin: 01/19/21 02:17 Dose: Not Given Documented by: [id number] Cosigned by: [id number] Insulin Aspart (Insulin Aspart 100 Units/Ml 3 Ml Pen) 0 units SC Q6 [facility] Stop: 02/18/21 05:59 Last Admin: 01/19/21 12:44 Dose: Not Given Documented by: [id number] Admin: 01/19/21 06:30 Dose: 12 units Documented by: [id number] Cosigned by: [id number] Insulin Aspart (Insulin Aspart 100 Units/Ml 3 Ml Pen) 0 units SC ACHS [facility] Stop: 02/18/21 16:29 Last Admin: 01/21/21 20:37 Dose: Not Given Documented by: [id number] Admin: 01/21/21 18:01 Dose: 6 units Documented by: [id number] Cosigned by: [id number] Admin: 01/21/21 12:50 Dose: 5 units Documented by: [id number] Cosigned by: [id number] Admin: 01/21/21 08:38 Dose: 10 units Documented by: [id number] Cosigned by: [id number] Admin: 01/20/21 20:38 Dose: 2 units Documented by: [id number] Cosigned by: [id number] Admin: 01/20/21 18:15 Dose: 2 units Documented by: [id number] Cosigned by: [id number] Admin: 01/20/21 12:37 Dose: 11 units Documented by: [id number] Cosigned by: [id number] Admin: 01/20/21 08:44 Dose: 11 units Documented by: [id number] Cosigned by: [id number] Admin: 01/19/21 21:23 Dose: 6 units Documented by: [id number] Cosigned by: [id number] Admin: 01/19/21 17:53 Dose: 17 units Documented by: [id number] Cosigned by: [id number] Oxycodone HCl (Oxycodone Hcl Ir 5 Mg Tab (Immediate Release)) 5 mg PO NOW STA Stop: 01/18/21 15:08 Last Admin: 01/18/21 15:13 Dose: 5 mg Documented by: [id number] Oxycodone HCl (Oxycodone Hcl Ir 5 Mg Tab (Immediate Release)) 5 mg PO ONE ONE Stop: 01/18/21 17:46 Last Admin: 01/18/21 17:48 Dose: 5 mg Documented by: [id number] Sumatriptan Succinate (Sumatriptan Succinate 50 Mg Tab) 50 mg PO NOW STA Stop: 01/20/21 22:28 Last Admin: 01/20/21 22:54 Dose: 50 mg Documented by: [id number] Tramadol HCl (Tramadol Hcl 50 Mg Tablet) 25 - 50 mg PO Q4H PRN PRN Reason: Pain Stop: 02/18/21 00:20 Last Admin: 01/20/21 20:49 Dose: 50 mg Documented by: [id number] Admin: 01/20/21 15:31 Dose: 50 mg Documented by: [id number] Admin: 01/20/21 09:02 Dose: 50 mg Documented by: [id number] Admin: 01/19/21 22:14 Dose: 50 mg Documented by: [id number] Admin: 01/19/21 00:40 Dose: 50 mg Documented by: [id number] Critical Care Time Critical Care Time: Yes Total Critical Care Time: 32 I have personally spent 32 minutes of critical care time in the direct management of this patient. This was a life threatening event. This 32 minutes is in excess of all separately billable procedures. Medical Decision Making Differential Diagnosis Diverticulosis, AVM, coagulopathy, colitis, inflammatory bowel disease, malignancy, Lucero-Scherer tear, esophagitis, peptic ulcer disease, variceal bleed, gastritis, epistaxis, fissure, hemorrhoids, as well as other pathologies. Medical Records Attestation: I reviewed the patient's medical records. Home Medications Current Medication List: was personally reviewed by me Laboratory Data Attestation: I reviewed the patient's lab results. Result diagrams: 01/22/21 07:44 01/22/21 07:44 Lab Results 01/18/21 01/18/21 01/18/21 Range/Units 12:32 12:34 12:34 WBC 11.63 H (4.8-10.8) K/uL RBC 2.60 L (4.7-6.1) M/uL Hgb 7.9 L (14.0-18.0) g/dL Hct 23.7 L (42-52) % MCV 91.2 (80-100) fL MCH 30.4 (25-34) pg MCHC 33.3 (32-36) g/dL RDW Std Deviation 54.6 H (36.4-46.3) fL RDW Coeff of Selin 16.4 H (11.5-14.5) % Plt Count 277 (130-400) K/uL MPV 9.2 (7.4-10.4) fL Immature Gran % (Auto) 1.0 % Neut % (Auto) 77.1 % Lymph % (Auto) 11.7 % Frontier % (Auto) 4.9 % Eos % (Auto) 4.8 % Baso % (Auto) 0.5 % Neut # (Auto) 8.96 H (1.4-6.5) K/uL Lymph # (Auto) 1.36 (1.2-3.4) K/uL Frontier # (Auto) 0.57 (0.11-0.59) K/uL Eos # (Auto) 0.56 H (0-0.5) K/uL Baso # (Auto) 0.06 (0-0.2) K/uL Immature Gran # (Auto) 0.12 H (0.00-0.02) K/uL PT 9.3 (9.0-12.0) Seconds INR 0.9 (0.9-1.1) Sodium (136-145) mmol/L Potassium (3.5-5.1) mmol/L Chloride (98-107) mmol/L Carbon Dioxide (21-32) mmol/L Anion Gap (3-11) BUN (7-18) mg/dl Creatinine (0.6-1.4) mg/dl Est Cr Clr Drug Dosing ml/min Est GFR ( Amer) ml/min Est GFR (Non-Af Amer) ml/min BUN/Creatinine Ratio (10-20) Glucose (70-99) mg/dl POC Glucose 52 L* (70-99) mg/dl Calcium (8.5-10.1) mg/dl Magnesium (1.8-2.4) mg/dl Total Bilirubin (0.2-1) mg/dl AST (15-37) U/L ALT (12-78) U/L Alkaline Phosphatase (45-117) U/L Troponin I (0-0.045) ng/ml Total Protein (6.4-8.2) gm/dl Albumin (3.4-5.0) gm/dl Globulin (2.5-4.0) gm/dl Albumin/Globulin Ratio (0.9-2) TSH (0.300-4.500) uIu/ml COVID-19 Eval Order SARS-CoV-2 (PCR) (Negative) Hep Bs Antigen (Neg) Hep Bs Antibody Hep Bs Antibody, Quant (>or=10mIU/mL Immune) mIU/mL Blood Type Antibody Screen Crossmatch 01/18/21 01/18/21 01/18/21 Range/Units 12:34 12:34 12:34 WBC (4.8-10.8) K/uL RBC (4.7-6.1) M/uL Hgb (14.0-18.0) g/dL Hct (42-52) % MCV (80-100) fL MCH (25-34) pg MCHC (32-36) g/dL RDW Std Deviation (36.4-46.3) fL RDW Coeff of Selin (11.5-14.5) % Plt Count (130-400) K/uL MPV (7.4-10.4) fL Immature Gran % (Auto) % Neut % (Auto) % Lymph % (Auto) % Frontier % (Auto) % Eos % (Auto) % Baso % (Auto) % Neut # (Auto) (1.4-6.5) K/uL Lymph # (Auto) (1.2-3.4) K/uL Frontier # (Auto) (0.11-0.59) K/uL Eos # (Auto) (0-0.5) K/uL Baso # (Auto) (0-0.2) K/uL Immature Gran # (Auto) (0.00-0.02) K/uL PT (9.0-12.0) Seconds INR (0.9-1.1) Sodium 140 (136-145) mmol/L Potassium 3.4 L (3.5-5.1) mmol/L Chloride 102 (98-107) mmol/L Carbon Dioxide 32 (21-32) mmol/L Anion Gap 6.0 (3-11) BUN 29 H (7-18) mg/dl Creatinine 6.96 H* (0.6-1.4) mg/dl Est Cr Clr Drug Dosing 17.2 ml/min Est GFR ( Amer) 10.6 ml/min Est GFR (Non-Af Amer) 9.1 ml/min BUN/Creatinine Ratio 4.2 L (10-20) Glucose 50 L* (70-99) mg/dl POC Glucose 68 L* (70-99) mg/dl Calcium 9.3 (8.5-10.1) mg/dl Magnesium 2.1 (1.8-2.4) mg/dl Total Bilirubin 0.9 (0.2-1) mg/dl AST 12 L (15-37) U/L ALT 22 (12-78) U/L Alkaline Phosphatase 76 (45-117) U/L Troponin I < 0.015 (0-0.045) ng/ml Total Protein 7.3 (6.4-8.2) gm/dl Albumin 3.8 (3.4-5.0) gm/dl Globulin 3.5 (2.5-4.0) gm/dl Albumin/Globulin Ratio 1.1 (0.9-2) TSH 1.540 (0.300-4.500) uIu/ml COVID-19 Eval Order SARS-CoV-2 (PCR) (Negative) Hep Bs Antigen (Neg) Hep Bs Antibody Hep Bs Antibody, Quant (>or=10mIU/mL Immune) mIU/mL Blood Type O Positive Antibody Screen NEGATIVE Crossmatch See Detail 01/18/21 01/18/21 01/18/21 Range/Units 12:42 13:15 13:15 WBC (4.8-10.8) K/uL RBC (4.7-6.1) M/uL Hgb (14.0-18.0) g/dL Hct (42-52) % MCV (80-100) fL MCH (25-34) pg MCHC (32-36) g/dL RDW Std Deviation (36.4-46.3) fL RDW Coeff of Selin (11.5-14.5) % Plt Count (130-400) K/uL MPV (7.4-10.4) fL Immature Gran % (Auto) % Neut % (Auto) % Lymph % (Auto) % Frontier % (Auto) % Eos % (Auto) % Baso % (Auto) % Neut # (Auto) (1.4-6.5) K/uL Lymph # (Auto) (1.2-3.4) K/uL Frontier # (Auto) (0.11-0.59) K/uL Eos # (Auto) (0-0.5) K/uL Baso # (Auto) (0-0.2) K/uL Immature Gran # (Auto) (0.00-0.02) K/uL PT (9.0-12.0) Seconds INR (0.9-1.1) Sodium (136-145) mmol/L Potassium (3.5-5.1) mmol/L Chloride (98-107) mmol/L Carbon Dioxide (21-32) mmol/L Anion Gap (3-11) BUN (7-18) mg/dl Creatinine (0.6-1.4) mg/dl Est Cr Clr Drug Dosing ml/min Est GFR ( Amer) ml/min Est GFR (Non-Af Amer) ml/min BUN/Creatinine Ratio (10-20) Glucose (70-99) mg/dl POC Glucose (70-99) mg/dl Calcium (8.5-10.1) mg/dl Magnesium (1.8-2.4) mg/dl Total Bilirubin (0.2-1) mg/dl AST (15-37) U/L ALT (12-78) U/L Alkaline Phosphatase (45-117) U/L Troponin I (0-0.045) ng/ml Total Protein (6.4-8.2) gm/dl Albumin (3.4-5.0) gm/dl Globulin (2.5-4.0) gm/dl Albumin/Globulin Ratio (0.9-2) TSH (0.300-4.500) uIu/ml COVID-19 Eval Order Covid19 at [facility] SARS-CoV-2 (PCR) NEGATIVE (Negative) Hep Bs Antigen Neg (Neg) Hep Bs Antibody Immune Hep Bs Antibody, Quant 55.80 (>or=10mIU/mL Immune) mIU/mL Blood Type Antibody Screen Crossmatch Imaging Data Radiologist's Impression: Chest X-Ray 01/18/21 12:23 SINGLE VIEW CHEST CLINICAL HISTORY: Generalized weakness. FINDINGS: An AP, portable, upright chest radiograph is compared to study dated 12/26/2020 and correlated with chest CT dated 10/13/2020. The heart is enlarged. There is pulmonary vascular congestion. No airspace consolidation or large pleural effusion is identified. No pneumothorax is seen. There is chronic posttraumatic deformity of the right clavicle. IMPRESSION: Cardiomegaly with evidence of congestive failure. ACT 112: Negative or not required by law. Electronically signed by: Marco Mejia M.D. 01/18/2021 1:19 PM ECG Data Attestation: I personally reviewed and interpreted this ECG as follows: Indication: + weakness Rate (beats per minute): 84 Rhythm: + normal sinus ECG Intervals/blocks: + Prolonged QT (473) ECG Dulce: + Normal ECG ST segments: + Normal ST segments ECG Findings: + Q waves (Anterior); no PACs or no PVCs Comparison ECG Date: from (12/26/20) Change: no significant change Blood Pressure Blood Pressure Findings: Elevated blood pressure Blood Pressure Disposition: further management by hospitalist MDM Narrative This patient was evaluated and appeared to be in no significant distress. IV access was obtained and laboratory work was drawn. An order for cardiac monitoring was placed and the patient is noted to be in a normal sinus rhythm at 81 bpm. Patient was guaiac positive on rectal exam. He is noted to be anemic with a hemoglobin below 8. He was typed and crossed for 2 units of PRBCs. Patient was given a Protonix bolus and a drip was initiated. Patient was consented for blood transfusion. 1 unit PRBCs was ordered. Case was discussed with the hospitalist service. Patient did remain stable in the emergency de partment. He was advised of the findings and plan and agreed. Impression & Plan GIB (gastrointestinal bleeding) Discharge Plan Visit Data Chief Complaint: Referred by Doctor Stated Complaint: LOW BLOOD COUNT ED Provider: Bree Waddell Discharge Problem: GIB (gastrointestinal bleeding) Patient Disposition: Admitted As Inpatient Discharge Instructions Interventions: ED Discharge Assessment Last Done: 08/26/21 16:12 Discharge Problem: GIB (gastrointestinal bleeding) Qualifiers: GI bleed type/associated pathology: melena Qualified Code(s): K92.1 - Melena
[2021-01-18] MEDS: CALCIUM ACETATE 667 MG CAP/TAB PO SCH (18:54)
[2021-01-18] MEDS: ACETAMINOPHEN 325 MG TAB PO PRN (20:09)
[2021-01-18] MEDS: traZODone HCL 50 MG TAB PO SCH (20:10)
[2021-01-18] MEDS: METOPROLOL SUCC 50MG EXT REL TAB PO SCH (20:10)
[2021-01-18] MEDS: lisinopril 40 MG TAB PO SCH (20:10)
[2021-01-18] MEDS: amLODIPine BESYLATE 5 MG TAB PO SCH (20:10)
[2021-01-18] MEDS: hydrALAZINE TAB 50 MG TAB PO SCH (20:10)
[2021-01-18] MEDS: TORSEMIDE 100 MG TAB PO SCH (20:10)
[2021-01-18] MEDS: ATORVASTATIN 40 MG TAB PO SCH (20:10)
[2021-01-18] MEDS: NEPHROCAPS PO SCH (20:10)
[2021-01-18] MEDS ORDERED: hydrALAZINE HCL 25 MG TAB PO SCH (21:00)
[2021-01-18] MEDS ORDERED: INSULIN ASPART 100 UNITS/ML 3 ML PEN SC SCH (21:00)
[2021-01-19] MEDS: traMADol HCL 50 MG TABLET PO PRN ×2 (00:40→22:14)
[2021-01-19] MEDS: HYDROmorphone INJ 0.5 MG/0.5 ML SYR IV PRN ×2 (01:28→18:09)
[2021-01-19] MEDS ORDERED: INSULIN ASPART 100 UNITS/ML 3 ML PEN SC ONE (02:00)
[2021-01-19] MEDS ORDERED: Nursing to Pharmacy Communication SCH ×2 (05:30→12:15)
[2021-01-19] MEDS: INSULIN ASPART 100 UNITS/ML 3 ML PEN SC SCH ×4 (06:30→21:23)
--- NOTE | 2021-01-19 06:47 | CT Scan Report ---
CT head/brain wo con CLINICAL HISTORY: 40 years-old Male with worst dial. Acute headache TECHNIQUE: Multiple axial CT images of the head were obtained without contrast. A dose lowering tech nique was utilized adhering to the principles of ALARA. CT DOSE: 537.48 mGy.cm COMPARISON: 08/15/2011 FINDINGS: No acute intracranial hemorrhage, midline shift, intracranial mass, hydrocephalus, territorial ischem ia or abnormal extra-axial collection. The calvarium is intact. The paranasal sinuses, mastoid air cells, and middle ear cavities are clear . IMPRESSION: No acute intracranial abnormality ACT 112: Negative or not required by law. The above report was generated using voice recognition software. It may contain grammatical, syntax o r spelling errors. Electronically signed by: Jimmy Hernandez M.D. 01/19/2021 6:46 AM
[2021-01-19 07:14] LABS: Appearance Urine Clear (Clear); Bacteria Urine Automated Negative (Negative); Bilirubin Urine Negative (Negative); Blood Urine 1+ (Negative); Color Urine Yellow; Epithelial Cell Urine Auto 0-5 /lpf (0-5); Glucose Urine UA 1+ (Negative); Ketones Urine Negative (Negative); Leukocyte Esterase Urine Negative (Negative); Nitrite Urine Negative (Negative); Specific Gravity Urine 1.012 (1.000-1.030); Urobilinogen Urine Negative (Negative); pH Urine 7.5 (4.5-7.5)
[2021-01-19 07:17] LABS: Protein Urine 3+ (Negative)
[2021-01-19 07:53] LABS: Hematocrit (blood only) 23.1 % (42-52); Hemoglobin 7.8 g/dL (14.0-18.0); Mean Corpuscular Hemoglobin 30.6 pg (25-34); Mean Corpuscular Hgb Conc 33.8 g/dL (32-36); Mean Corpuscular Volume 90.6 fL (80-100); Mean Platelet Volume 9.4 fL (7.4-10.4); Platelet Count 239 K/uL (130-400); RDW Coefficient of Variation 16.1 % (11.5-14.5); RDW Standard Deviation 53.5 fL (36.4-46.3); Red Blood Count 2.55 M/uL (4.7-6.1); White Blood Count 11.47 K/uL (4.8-10.8)
[2021-01-19] MEDS: CALCIUM ACETATE 667 MG CAP/TAB PO SCH ×3 (08:35→15:39)
[2021-01-19] MEDS: METOPROLOL SUCC 50MG EXT REL TAB PO SCH ×2 (08:35→21:56)
[2021-01-19] MEDS: INSULIN GLARGINE SOLOSTAR 100 UNITS/ML 3 ML PEN SC SCH (08:35)
[2021-01-19] MEDS: hydrALAZINE TAB 50 MG TAB PO SCH ×2 (08:35→21:21)
[2021-01-19 08:49] LABS: BUN Creatinine Ratio 5.1 (10-20); Calcium 8.9 mg/dl (8.5-10.1); Creatinine Clr Calc Pharmacy 13.6 ml/min; Est GFR (Non-African American) 6.9 ml/min; Potassium 4.1 mmol/L (3.5-5.1)
--- NOTE | 2021-01-19 09:00 | Gastrointestinal Consultation ---
Date of Consultation January 19, 2021 Assessment & Plan (1) Anemia of chronic disease: (2) GI bleeding: Pt is a 40 y/o male admitted w anemia, reported black stools x years on Ferric Citrate PO, BRBPR 4 days ago but last BM 2 days ago was black. He denies abd pain, n/v otherwise. He received 1U PRBC transfusion w mild response of blood ct. He is refusing any endoscopic evaluation today. Suspect anemia related to ESRD but would also recommend ruling out GI source of blood loss. Since he d oesn't want endoscopic evals today and no melena, continued BRBPR, we can continue to monitor. May have diet advanced from our standpoint. Recommend OP EGD/Colonoscopy if he is discharged in the next few days. Otherwise if he developed GI bleeding, pls recall us over the weekend. Supervising Physician Co-Signing Physician Notes I performed a history and physical examination of the patient today, including specifically on physical exam - soft abdomen. I have discussed the patient's management with the advanced practitioner. Please refer to the nurse practitioner's note for the documented findings and plan of care. Refused endoscopy. Treat with PPI Recall GI if needed. History of Present Illness Reason for Consultation: Pt si a 40 y/o male w PMHx of ESRD on HD, DM II, non ischemic cardiomyopathy, pulmonary sarcoidosis, HTN, on chronic O2 who was admitted for anemia. Baseline Hgb usually 9-10, found recently to be 7. He reports having black stools , initially reports since few months ago but today told me it's been since 2019. States he's receiving IV iron twice weekly but also noted PO ferric citrate as home meds. He had BRBPR on Friday x 1 episode w rectal itching. Denies fever, chills, CP, SOB, abd pain ,n/v, unexpected weight loss. He is having PÉREZ. His last BM 2 days ago was black colored. He denies NSAIDs but on baby ASA at home Denies family hx of colorectal ca or IBD He never had endoscopies before. Labs reviewed. He received 1u prbc transfusion last night w mild response of blood ct. Hgb 7->8 Attending Physician: Aren Kate MD Allergies Allergy/AdvReac Type Severity Reaction Status Date / Time No Known Allergies Allergy Unknown Verified 01/18/21 13:12 Home Medications Medication Instructions Recorded Confirmed Type insulin glargine 100 unit/mL (3 56 unit SUBCUT QAM 05/24/19 01/18/21 History mL) subcutaneous pen (Lantus Solostar U-100 Insulin) amlodipine 10 mg tablet 10 mg PO HS 06/11/19 01/18/21 History calcium acetate(phosphat bind) 667 1,334 mg PO AC 06/11/19 01/18/21 History mg tablet lisinopril 40 mg tablet 40 mg PO HS 06/11/19 01/18/21 History calcium carbonate 200 mg calcium 200 mg PO DAILY PRN 02/03/20 01/18/21 History (500 mg) chewable tablet (Tums) hydralazine 25 mg tablet 25 mg PO BID 02/03/20 01/18/21 History vitamin B complex-vitamin C-folic 1 tab PO PM 02/03/20 01/18/21 History acid 0.8 mg tablet (Myrna-Bello) albuterol sulfate 90 mcg/actuation 2 puff INHALATION Q6 PRN 10/13/20 01/18/21 History aerosol inhaler atorvastatin 40 mg tablet 40 mg PO PM 10/13/20 01/18/21 History insulin aspart U-100 100 unit/mL 16 unit SUBCUT AC 10/13/20 01/18/21 History (3 mL) subcutaneous pen (Novolog Flexpen U-100 Insulin aspart) lorazepam 1 mg tablet 1 mg PO UD 10/13/20 01/18/21 History metoprolol succinate 50 mg 50 mg PO BID 10/13/20 01/18/21 History tablet,extended release 24 hr torsemide 100 mg tablet 100 mg PO PM 10/13/20 01/18/21 History aspirin 81 mg tablet 81 mg PO QAM 12/26/20 01/18/21 History trazodone 50 mg tablet 50 mg PO HS 12/26/20 01/18/21 History ferric citrate 210 mg iron tablet 420 mg PO AC 01/18/21 01/18/21 History (Auryxia) Patient History Medical History A-V fistula right Abnormal CT scan of lung Anemia Chronic respiratory failure with hypoxia Diabetes IDDM (Type 1 per records) Dyslipidemia End stage renal disease diaylsis - M,W,F ([facility], [place]) Heart failure with reduced ejection fraction Hypertension Obesity Sarcoidosis per records Seizure disorder remote hx (2007) in setting of hypoglycemia (?ETOH related per records), no issues since Surgical History History of vascular access device permacath insertion Hx of biopsy kidney bx PONV (postoperative nausea and vomiting) Status post creation of arteriovenous fistula right: 07/15/17: MAC sedation at [facility] Family History Father Hypertension Social History Smoking Status: Former smoker Years Smoked: 2; Second Hand Exposure: No; Do You Dip or Chew Tobacco: Yes; Tobacco Cessation Education Requested by Patient: No Hx Alcohol Use: Yes Hx Substance Use: No Preferred Language: Burmese Communication Ability: Effective Pump Service Supervisor Required: No Beliefs That Will Affect Care: None Current Living Situation: Other Current Living Situation Comment: Roommate Other Information That Helps Us Care for You: No Feels Safe at Home: Yes Safety Concerns: Feels Safe At This Time Assistive Devices: Glasses Review of Systems Review of Systems: All systems reviewed & are unremarkable except as noted in HPI & below Physical Exam Constitutional: WD/WN, vitals as above well groomed, cooperative and comfortable Eyes: PERRL, conjunctivae normal, anicteric sclerae ENMT: external ear and nose normal, oropharynx normal Respiratory: normal respiratory effort, lungs clear to auscultation On O2 2L NC. Diminished on bilateral bases Cardiovascular: RRR, no murmur, no edema Gastrointestinal (Abdomen): normal bowel sounds, soft, nontender, no hepatosplenomegaly Skin: no rashes, warm and dry no jaundice Psychiatric: A+Ox3, euthymic affect Lymphatic: no lymphedema Results & Data ([facility]) Vital Signs (Past 12 Hours) Vital Signs Temp Pulse Resp BP Pulse Ox 01/19/21 07:45 36.6 C 76 20 143/68 H 97 01/19/21 01:46 147/75 H 01/18/21 23:25 36.6 C 86 20 162/84 H 93
[2021-01-19 09:03] LABS: Beta-Hydroxybutyrate 10.36 mg/dl (0.2-2.81)
[2021-01-19] MEDS ORDERED: SODIUM CHLORIDE 0.9% 1000ML 1,000 ML IV PRN (09:07)
[2021-01-19] MEDS ORDERED: HEPARIN SOD (PORCINE) 1000 UNIT/ML IV ONE (09:07)
[2021-01-19] MEDS ORDERED: EPOETIN ALFA 20,000 UNITS/ML VIAL IV SCH (09:30)
--- NOTE | 2021-01-19 09:51 | Pharmacy Report ---
Pharmacy Glycemic Short Note 2 - Date of Service January 19, 2021 - Glycemic Short BSG Results (Last 24 hours): 01/18/21 01/18/21 01/18/21 12:32 12:34 12:34 Glucose 50 L* POC Glucose 52 L* 68 L* 01/18/21 01/18/21 01/19/21 16:19 20:35 01:45 Glucose POC Glucose 154 H 125 H 120 H 01/19/21 01/19/21 01/19/21 06:08 06:10 06:48 Glucose 377 H* POC Glucose 388 H* 387 H* OUTPATIENT ANTIDIABETIC REGIMEN: * Lantus 56 units SC AM * Novolog 16 units SC TIDM * HbA1c pending ASSESSMENT: * 40 yo M admitted yesterday secondary to symptomatic anemia. Pharmacy has been consulted for assistance with inpatient glycemic management. Patient is a type 1 diabetic with ESRD on HD MWF managed on basal bolus insulin at home. Most recent HbA1c was 7.0% but was greater than three months ago. Will order an updated HbA1c. * BSG upon arrival to ED yesterday was 52 mg/dL with a recheck of 68 mg/dL. Patient was provided with 16 oz of juice. Unknown if he was symptomatic. Recheck at dinner time was 154 mg/dL. Patient did not have a diet ordered and did not eat so no insulin was provided. * At bedtime, patient's BSG was 125 mg/dL and he received 5 units of Novolog to cover the 26 g of CHO he consumed. Overnight check was 120 mg/dL. * He does report taking 56 units of Lantus yesterday morning prior to admission. His fasting BSG was 388 mg/dL this AM. He is currently NPO for GI evaluation of anemia but it seems that he is refusing any procedures. He is scheduled for HD today. * Received a 30% reduction in home dose of Lantus this AM. Will continue with this for now. * Novolog is being based on previous admission data. May need adjusted if diet ordered and tolerated this afternoon. PLAN FOR INPATIENT GLYCEMIC CONTROL: * Basal insulin * Lantus 38 units SC x 1 this AM * Bolus insulin * NovoLog per scale ACHS or Q6hrs while NPO * Goal Range: Low 120 mg/dL - High 150 mg/dL * Correction Factor: 20 mg/dL/unit * Nutritional / Prandial insulin per carb ratio of 1 unit per 5 grams CHO consumed PLAN FOR DISCHARGE: * To be determined
[2021-01-19] MEDS ORDERED: HYDROmorphone INJ 0.5 MG/0.5 ML SYR IV STA (09:52)
[2021-01-19 09:55] LABS: Estimated Average Glucose 148 mg/dl; Hemoglobin A1C 6.8 % (4.5-5.6)
--- NOTE | 2021-01-19 12:23 | Nephrology Consultation ---
Date of Consultation January 19, 2021 Assessment & Plan (1) GI bleeding: has been delaying Scope both as outpt and now refused inpt. He does need one though given recurrent GI bleed. Hgb has been chronically low from this with Anemia of ESRD. S/p PRBC x1 . Getting procrit. (2) ESRD (end stage renal disease) on dialysis: has e/o fluid overload. Usually gets about 3-3.5 UF and will do same. has adherence issue with following diet/fluid. Do 3.5 hrs on 2 k bath. (3) End stage renal disease: History of Present Illness Reason for Consultation: ESRD on Dialysis Attending Physician: Aren Kate MD History of Present Illness 40yo M with a PMH of ESRD on HD MWF, type 2 diabetes, chronic respiratory failure with hypoxia on 3L NC O2, nonischemic cardiomyopathy, pulmonary sarcoidosis, hypertension and other medical problems listed below who presents from home with abnormal labwork. Outpatient labs showed hgb of 7. Reports dark stools for past few months . Was directed to come to ER by PCP for further evaluation. Reports one large episode of bright red blood in toilet a few days ago with clots present--showed photo of that. Had not previously been agreeable to colonoscopy but is now willing but then refused again for today. OP c-scope scheduled but not yet performed. Patient feeling more SOB recently when lying down. Is on 3L NC O2 at baseline now. Takes torsemide 100mg every evening and makes a small amount of urine. had 1 unit leucoreduced PRBC and lasix 100. Currently getting dialysis as i speak. Denies any fever, chills, lightheadedness, headache, chest pain, wheezing, nausea, vomiting, abdominal pain, dysuria or constipation. Reports loose stools lately. Feels that he is more fluid in his abdomen than usual. Allergies Review of Systems Review of Systems: At least ten systems reviewed and negative except as noted in the HPI. Allergies Allergy/AdvReac Type Severity Reaction Status Date / Time No Known Allergies Allergy Unknown Verified 01/18/21 13:12 Home Medications Medication Instructions Recorded Confirmed Type insulin glargine 100 unit/mL (3 56 unit SUBCUT QAM 05/24/19 01/18/21 History mL) subcutaneous pen (Lantus Solostar U-100 Insulin) amlodipine 10 mg tablet 10 mg PO HS 06/11/19 01/18/21 History calcium acetate(phosphat bind) 667 1,334 mg PO AC 06/11/19 01/18/21 History mg tablet lisinopril 40 mg tablet 40 mg PO HS 06/11/19 01/18/21 History calcium carbonate 200 mg calcium 200 mg PO DAILY PRN 02/03/20 01/18/21 History (500 mg) chewable tablet (Tums) hydralazine 25 mg tablet 25 mg PO BID 02/03/20 01/18/21 History vitamin B complex-vitamin C-folic 1 tab PO PM 02/03/20 01/18/21 History acid 0.8 mg tablet (Myrna-Bello) albuterol sulfate 90 mcg/actuation 2 puff INHALATION Q6 PRN 10/13/20 01/18/21 History aerosol inhaler atorvastatin 40 mg tablet 40 mg PO PM 10/13/20 01/18/21 History insulin aspart U-100 100 unit/mL 16 unit SUBCUT AC 10/13/20 01/18/21 History (3 mL) subcutaneous pen (Novolog Flexpen U-100 Insulin aspart) lorazepam 1 mg tablet 1 mg PO UD 10/13/20 01/18/21 History metoprolol succinate 50 mg 50 mg PO BID 10/13/20 01/18/21 History tablet,extended release 24 hr torsemide 100 mg tablet 100 mg PO PM 10/13/20 01/18/21 History aspirin 81 mg tablet 81 mg PO QAM 12/26/20 01/18/21 History trazodone 50 mg tablet 50 mg PO HS 12/26/20 01/18/21 History ferric citrate 210 mg iron tablet 420 mg PO AC 01/18/21 01/18/21 History (Auryxia) Patient History Medical History A-V fistula right Abnormal CT scan of lung Anemia Chronic respiratory failure with hypoxia Diabetes IDDM (Type 1 per records) Dyslipidemia End stage renal disease diaylsis - M,W,F ([facility], [place]) Heart failure with reduced ejection fraction Hypertension Obesity Sarcoidosis per records Seizure disorder remote hx (2007) in setting of hypoglycemia (?ETOH related per records), no issues since Surgical History History of vascular access device permacath insertion Hx of biopsy kidney bx PONV (postoperative nausea and vomiting) Status post creation of arteriovenous fistula right: 07/15/17: MAC sedation at [facility] Family History Father Hypertension Social History Smoking Status: Former smoker Years Smoked: 2; Second Hand Exposure: No; Do You Dip or Chew Tobacco: Yes; Tobacco Cessation Education Requested by Patient: No Hx Alcohol Use: Yes Hx Substance Use: No Preferred Language: Niuean Communication Ability: Effective Bull Riveter Required: No Beliefs That Will Affect Care: None Current Living Situation: Other Current Living Situation Comment: Roommate Other Information That Helps Us Care for You: No Feels Safe at Home: Yes Safety Concerns: Feels Safe At This Time Assistive Devices: Glasses Physical Exam Constitutional: WD/WN, vitals as above well groomed, cooperative and comfortable Eyes: PERRL, conjunctivae normal, anicteric sclerae ENMT: external ear and nose normal, oropharynx normal Respiratory: normal respiratory effort, lungs clear to auscultation On O2 2L NC. Diminished on bilateral bases Cardiovascular: RRR, no murmur, no edema Gastrointestinal (Abdomen): normal bowel sounds, soft, nontender, no hepatosplenomegaly Skin: no rashes, warm and dry no jaundice Psychiatric: A+Ox3, euthymic affect Lymphatic: no lymphedema Results & Data ([facility]) Vital Signs (Past 12 Hours) Vital Signs Temp Pulse Resp BP Pulse Ox 01/19/21 07:45 36.6 C 76 20 143/68 H 97 01/19/21 01:46 147/75 H
--- NOTE | 2021-01-19 15:33 | Hospitalist Progress Note ---
Date of Service January 19, 2021 Assessment & Plan (1) Symptomatic anemia: Plan: This is a 40yo M with a PMH of ESRD on HD MWF, type 2 diabetes, chronic respiratory failure with hypoxia on 3L NC O2, nonischemic cardiomyopathy, pulmonary sarcoidosis, hypertension and other medical problems listed below who presents from home with abnormal lab work. Symptomatic anemia Possible GI bleed Reporting dark stools for month in setting of iron supplementation, had large episode of BRBPR earlier this week Outpatient hgb of 7 - directed to come to ER for further evaluation PCP recently ordered outpatient colonoscopy, has not been scheduled yet Type & crossed for 1u prbcs - repeat H&H tomorrow morning Received protonix bolus in ER Routine GI consult - NPO after midnight Received 1 unit of blood transfusion and the hemoglobin remains unchanged at 7.8 Denies any more bright red blood per rectum Appreciate GI input and recommendation Will monitor CBC while in the hospital Chronic respiratory failure with hypoxia Baseline 3L NC O2 In setting of volume overload Appears comfortable resting with 98% saturation on 3L NC Expect improvement with diuresis, Status post hemodialysis today Acute decompensated Heart failure with reduced ejection fraction In setting of renal failure, heart failure Still making some urine, on torsemide 100mg HS CXR with cardiomegaly with evidence of congestive failure Given 100mg IV Lasix in ER per instruction from Dr. Xavier Appreciate nephrology input Monitor I&Os, daily weights End stage renal disease on HD HD MWF at [facility] Cr 6.96 (bl mid 5-6s), K 3.4, BP 172/97 Nephrology consulted Due for HD tomorrow Continue renal diet, phos binders, diuresis Sarcoidosis Follows with Dr. Blackmon as outpatient Recent lung CT from November 2020 looks improved Hypertension Home regimen includes amlodipine HS, hydralazine BID, lisinopril HS and Toprol Given additional IV Lasix Monitor BP -blood pressure is controlled Diabetes Type 1 DM - A1c 6.9 in 08/13 Repeat a1c pending Hypoglycemic episode in ER - given diet Glycemic consult placed BSG AC HS Anemia of chronic disease Hgb currently 7.9 (baseline mid 8-9) Receives iron supplementation at HD Monitor with daily CBC DVT Ppx: SCDs given anemia, possible GI bleed Code status: FULL PCP: Pilgram Dispo: Admitted to [facility] tele Admission and Anticipated Discharge Date Admission Date: January 18, 2021 Subjective 01/19/2021 The patient was seen and examined in medical floor She is a status post dialysis Has been complaining of headache and wants to have medications for migraine no more blood in the stool Review of Systems Review of Systems: All systems reviewed and are unremarkable except as noted below Physical Exam Physical Exam: Sitting in bed in the bed without any acute distress Constitutional: well developed, well nourished, + ill appearing and + obese Eyes: PERRL, conjunctivae normal, anicteric sclerae ENMT: external ear and nose normal, oropharynx normal Neck: trachea midline, no thyromegaly Respiratory: no respiratory distress Auscultation: lungs clear to auscultation bilaterally Cardiovascular: Rate/Rhythm: regular rate and regular rhythm; not tachycardic Heart Sounds: normal S1 and normal S2; no murmur Extremities: no edema Gastrointestinal (Abdomen): normal bowel sounds, soft, nontender, no hepatosplenomegaly Musculoskeletal: No acute arthritis in any joint Neurologic: Alert, awake and oriented x3 Results & Data Results & Data ([facility]) Vital Signs (Past 12 Hours) Vital Signs Temp Pulse Pulse Pulse Resp BP BP 01/19/21 14:40 71 140/72 01/19/21 14:20 72 135/62 01/19/21 14:00 68 149/79 H 01/19/21 13:40 71 125/55 L 01/19/21 13:20 74 118/60 01/19/21 13:00 73 156/82 H 01/19/21 12:40 72 150/83 H 01/19/21 12:20 87 135/59 L 01/19/21 12:00 76 146/65 H 01/19/21 11:40 80 135/72 01/19/21 11:27 36.6 C 84 01/19/21 07:45 36.6 C 76 20 143/68 H Pulse Ox 01/19/21 14:40 01/19/21 14:20 01/19/21 14:00 01/19/21 13:40 01/19/21 13:20 01/19/21 13:00 01/19/21 12:40 01/19/21 12:20 01/19/21 12:00 01/19/21 11:40 01/19/21 11:27 01/19/21 07:45 97 Laboratory Results Short CBC 01/19/21 Range/Units 06:48 WBC 11.47 H (4.8-10.8) K/uL Hgb 7.8 L (14.0-18.0) g/dL Hct 23.1 L (42-52) % Plt Count 239 (130-400) K/uL BMP 01/19/21 06:48 Sodium 132 L D Potassium 4.1 D Chloride 98 Carbon Dioxide 25 BUN 44 H D Creatinine 8.76 H* D Glucose 377 H* Calcium 8.9 Urine 01/19/21 Range/Units Unknown Urine Color Yellow Urine Appearance Clear (Clear) Urine pH 7.5 (4.5-7.5) Ur Specific [place] 1.012 (1.000-1.030) Urine Protein 3+ H (Negative) Urine Glucose (UA) 1+ H (Negative) Medications Administered Current Inpatient Medications Acetaminophen (Acetaminophen 325 Mg Tab) 650 mg PO Q6H PRN PRN Reason: Fever/pain Stop: 02/17/21 19:58 Last Admin: 01/18/21 20:09 Dose: 650 mg Documented by: Albuterol (Albuterol Hfa 8 Gm Inhaler) 2 puffs INH Q6 PRN PRN Reason: Shortness Of Breath Or Wheezin Stop: 02/17/21 16:03 Amlodipine Besylate (Amlodipine Besylate 5 Mg Tab) 10 mg PO HS CHENG Stop: 02/17/21 20:59 Last Admin: 01/18/21 20:10 Dose: 10 mg Documented by: Atorvastatin Calcium (Atorvastatin 40 Mg Tab) 40 mg PO PM CHENG Stop: 02/17/21 20:59 Last Admin: 01/18/21 20:10 Dose: 40 mg Documented by: Calcium Acetate (Calcium Acetate 667 Mg Cap/Tab) 1,334 mg PO AC CHENG Stop: 02/17/21 17:29 Last Admin: 01/19/21 12:43 Dose: Not Given Documented by: Calcium Acetate (Calcium Acetate 667 Mg Cap/Tab) 1,334 mg PO .with snacks PRN PRN Reason: SNACK FOOD Stop: 02/17/21 17:01 Calcium Carbonate (Calcium Carbonate 500 Mg Chewable Tab) 500 mg PO DAILY PRN PRN Reason: gastric upset Stop: 02/17/21 16:03 Dextrose (Dextrose 50% 50 Ml Syringe) 25 - 50 ml IV UD PRN; Protocol PRN Reason: Hypoglycemia Protocol Stop: 02/17/21 16:49 Epoetin Terrell (Epoetin Terrell 20,000 Units/Ml Vial) 20,000 units IV 0930 [facility] Stop: 01/19/21 16:00 Last Admin: 01/19/21 13:40 Dose: 20,000 units Documented by: Glucagon (Glucagon For Inj 1 Mg Vial) 1 mg SQ UD PRN; Protocol PRN Reason: Hypoglycemia Protocol Stop: 02/17/21 16:49 Glucose (Glucose 10 Tabs/Tube) 4 - 8 tabs PO UD PRN; Protocol PRN Reason: Hypoglycemia Protocol Stop: 02/17/21 16:49 Glucose (Glucose 40% Gel 15 Gm Tube) 15 - 30 gm PO UD PRN; Protocol PRN Reason: Hypoglycemia Protocol Stop: 02/17/21 16:49 Hydralazine HCl (Hydralazine Tab 50 Mg Tab) 50 mg PO BID [facility] Stop: 02/17/21 20:59 Last Admin: 01/19/21 08:35 Dose: Not Given Documented by: Hydromorphone HCl (Hydromorphone Inj 0.5 Mg/0.5 Ml Syr) 0.5 mg IV Q6H PRN PRN Reason: Pain Stop: 02/02/21 00:20 Last Admin: 01/19/21 01:28 Dose: 0.5 mg Documented by: Insulin Aspart (Insulin Aspart 100 Units/Ml 3 Ml Pen) 0 units SC [facility] Stop: 02/18/21 16:29 Insulin Glargine (Insulin Glargine Solostar 100 Units/Ml 3 Ml Pen) 0 units SC [facility]; Protocol Stop: 02/18/21 08:59 Last Admin: 01/19/21 08:35 Dose: 38 units Documented by: Lisinopril (Lisinopril 40 Mg Tab) 40 mg PO HS [facility] Stop: 02/17/21 20:59 Last Admin: 01/18/21 20:10 Dose: 40 mg Documented by: Metoprolol Succinate (Metoprolol Succ 50mg Ext Rel Tab) 50 mg PO BID [facility] Stop: 02/17/21 20:59 Last Admin: 01/19/21 08:35 Dose: Not Given Documented by: Miscellaneous (Carbohydrates For Hypoglycemia ) 15 - 30 gm PO UD PRN PRN Reason: Hypoglycemia Protocol Stop: 02/17/21 16:49 Miscellaneous Information (Pharmacy Glycemic Mgmt Consult) 1 ea N/A UD PRN; Protocol PRN Reason: Consult Stop: 02/17/21 16:59 Polyethylene Glycol (Polyethylene (Miralax) 17 Gm Pack) 17 gm PO DAILY PRN PRN Reason: Constipation Stop: 02/17/21 16:49 Torsemide (Torsemide 100 Mg Tab) 100 mg PO PM CHENG Stop: 02/17/21 20:59 Last Admin: 01/18/21 20:10 Dose: 100 mg Documented by: Tramadol HCl (Tramadol Hcl 50 Mg Tablet) 25 - 50 mg PO Q4H PRN PRN Reason: Pain Stop: 02/18/21 00:20 Last Admin: 01/19/21 00:40 Dose: 50 mg Documented by: Trazodone HCl (Trazodone Hcl 50 Mg Tab) 50 mg PO HS CHENG Stop: 02/17/21 20:59 Last Admin: 01/18/21 20:10 Dose: 50 mg Documented by: Vitamin B Complex/Folic Acid (Nephrocaps) 1 cap PO PM CHENG Stop: 02/17/21 20:59 Last Admin: 01/18/21 20:10 Dose: 1 cap Documented by:
--- NOTE | 2021-01-19 17:17 | Electrocardiogram Report ---
Test Reason : Blood Pressure : / mmHG Vent. Rate : 084 BPM Atrial Rate : 084 BPM P-R Int : 162 ms QRS Dur : 096 ms QT Int : 400 ms P-R-T Axes : 036 -13 057 degrees QTc Int : 473 ms Normal sinus rhythm Prolonged QT Abnormal ECG When compared with ECG of 26-DEC-2020 13:31, No significant change was found Confirmed by Maxwell Reeves ([id number]) on 01/19/2021 5:17:01 PM Referred By: Jaime Lovelace Confirmed By:Maxwell Reeves
[2021-01-19] MEDS ORDERED: SUMAtriptan succinate 50 MG TAB PO PRN (18:32)
[2021-01-19] MEDS: traZODone HCL 50 MG TAB PO SCH (21:20)
[2021-01-19] MEDS: amLODIPine BESYLATE 5 MG TAB PO SCH (21:20)
[2021-01-19] MEDS: TORSEMIDE 100 MG TAB PO SCH (21:20)
[2021-01-19] MEDS: PANTOprazole 40 MG in SYRINGE 0 ML IV SCH (21:21)
[2021-01-19] MEDS: NEPHROCAPS PO SCH (21:21)
[2021-01-19] MEDS: lisinopril 40 MG TAB PO SCH (21:21)
[2021-01-19] MEDS: ATORVASTATIN 40 MG TAB PO SCH (21:21)
[2021-01-20] MEDS: HYDROmorphone INJ 0.5 MG/0.5 ML SYR IV PRN (01:39)
[2021-01-20 06:55] LABS: Basophils # (auto) 0.05 K/uL (0-0.2); Basophils % (auto) 0.5 %; Eosinophils # (auto) 0.45 K/uL (0-0.5); Eosinophils % (auto) 4.7 %; Hematocrit (blood only) 21.9 % (42-52); Hemoglobin 7.3 g/dL (14.0-18.0); Immature Granulocytes # (auto) 0.14 K/uL (0.00-0.02); Immature Granulocytes % (auto) 1.4 %; Lymphocytes # (auto) 1.11 K/uL (1.2-3.4); Lymphocytes % (auto) 11.5 %; Mean Corpuscular Hemoglobin 30.3 pg (25-34); Mean Corpuscular Hgb Conc 33.3 g/dL (32-36); Mean Corpuscular Volume 90.9 fL (80-100); Monocytes # (auto) 0.44 K/uL (0.11-0.59); Monocytes % (auto) 4.6 %; Neutrophils # (auto) 7.47 K/uL (1.4-6.5); Neutrophils % (auto) 77.3 %; Platelet Count 190 K/uL (130-400); RDW Coefficient of Variation 15.8 % (11.5-14.5); RDW Standard Deviation 53.1 fL (36.4-46.3); Red Blood Count 2.41 M/uL (4.7-6.1); White Blood Count 9.66 K/uL (4.8-10.8)
[2021-01-20 07:23] LABS: Potassium 3.6 mmol/L (3.5-5.1)
[2021-01-20 07:24] LABS: BUN Creatinine Ratio 4.4 (10-20); Calcium 8.8 mg/dl (8.5-10.1); Creatinine Clr Calc Pharmacy 19.1 ml/min; Est GFR (African American) 12.1 ml/min; Est GFR (Non-African American) 10.4 ml/min; Polychromasia 1+
[2021-01-20] MEDS ORDERED: SODIUM CHLORIDE 0.9% 250 ML IV PRN (08:34)
--- NOTE | 2021-01-20 08:39 | Hospitalist Progress Note ---
Date of Service January 20, 2021 Assessment & Plan (1) Symptomatic anemia: Plan: This is a 40yo M with a PMH of ESRD on HD MWF, DMII , chronic respiratory failure with hypoxia on 3L NC O2, nonischemic cardiomyopathy, pulmonary sarcoidosis, HTN and other medical problems listed below who presents from home with abnormal lab work. Symptomatic anemia with Possible GI bleed - no episode of bloody or dark stool today - s/p 1 unit PRBC - hgb: 7.9> 7.8> 7.3 - currently asymptomatic and VSS - GI on board: but initially refused EGD but today he is okay with getting EGD on friday --- will inform GI - Nephro on board: -Avoid blood transfusion as patient is a transplant candidate. Will transfuse only when hemoglobin is significantly less than 7 and symptomatic Chronic respiratory failure with hypoxia - per pt he uses O2 at home at night and as needed - SpO2> 90 in room air - pt appeared euvolemic - had HD yesterday Acute decompensated Heart failure with reduced ejection fraction In setting of renal failure, heart failure Still making some urine, on torsemide 100mg HS CXR with cardiomegaly with evidence of congestive failure Given 100mg IV Lasix in ER per instruction from Dr. Xavier Appreciate nephrology input Monitor I&Os, daily weights End stage renal disease on HD HD MWF at [facility] Continue renal diet, phos binders, diuresis Sarcoidosis Follows with Dr. Blackmon as outpatient Recent lung CT from November 2020 looks improved Hypertension: stable Home regimen includes amlodipine HS, hydralazine BID, lisinopril HS and Toprol Monitor BP -blood pressure is controlled Diabetes Type 2 DM - A1c 6.9 in 08/13 Repeat a1c 6.8 Hypoglycemic episode in ER - given diet Glycemic consult placed BSG AC HS Anemia of chronic disease Hgb currently 7.3 (baseline mid 8-9) Receives iron supplementation at HD Monitor with daily CBC DVT Ppx: SCDs given anemia, possible GI bleed Code status: FULL PCP: Pilgram Dispo: Admitted to [facility] (2) ESRD (end stage renal disease) on dialysis: Admission and Anticipated Discharge Date Admission Date: January 18, 2021 Subjective Pt was laying on bed. Denied any bloody or dark stool yesterday. Denied any N/V PÉREZ is better Denied any abd pain, CP, or worsening SOB Review of Systems Review of Systems: At least 10 Review of systems were reviewed and all negative except as indicated in HPI Physical Exam Physical Exam: General:.NC in place, NAD, well developed HEENT:. Normal Conjunctiva, EOMI Heart:. Normal S1, S2, no murmur Abdominal:.small umbilical hernia, and possible b/l lower abd hernia, ND, Soft, NT, normal BS MSK:.trace pitting edema of b/l LE Psych:. AAOx3, normal affect Results & Data Results & Data ([facility]) Vital Signs (Past 12 Hours) Vital Signs Temp Pulse Resp BP Pulse Ox 01/20/21 07:00 36.9 C 81 20 149/79 H 95 01/19/21 21:10 94 01/19/21 21:09 37.1 C 88 16 143/66 H 85 L Laboratory Results Short CBC 01/20/21 Range/Units 06:33 WBC 9.66 (4.8-10.8) K/uL Hgb 7.3 L (14.0-18.0) g/dL Hct 21.9 L (42-52) % Plt Count 190 (130-400) K/uL BMP 01/19/21 01/20/21 06:48 06:33 Sodium 132 L D 138 Potassium 4.1 D 3.6 Chloride 98 103 Carbon Dioxide 25 27 BUN 44 H D 27 H Creatinine 8.76 H* D 6.22 H* D Glucose 377 H* 118 H Calcium 8.9 8.8
[2021-01-20] MEDS: PANTOprazole 40 MG in SYRINGE 0 ML IV SCH ×2 (08:40→20:35)
[2021-01-20] MEDS: hydrALAZINE TAB 50 MG TAB PO SCH ×2 (08:41→20:36)
[2021-01-20] MEDS: CALCIUM ACETATE 667 MG CAP/TAB PO SCH ×3 (08:41→17:18)
[2021-01-20] MEDS: INSULIN GLARGINE SOLOSTAR 100 UNITS/ML 3 ML PEN SC SCH ×2 (08:42→20:39)
[2021-01-20] MEDS: METOPROLOL SUCC 50MG EXT REL TAB PO SCH ×2 (08:42→20:37)
[2021-01-20] MEDS: INSULIN ASPART 100 UNITS/ML 3 ML PEN SC SCH ×4 (08:44→20:38)
[2021-01-20] MEDS: traMADol HCL 50 MG TABLET PO PRN ×3 (09:02→20:49)
--- NOTE | 2021-01-20 10:51 | Nephrology Progress Note ---
Date of Service January 20, 2021 Assessment & Plan (1) GI bleeding: Plan: Patient with GI bleed. Has been delaying Scope both as outpt and initially refused inpt but now okay with. He does need one though given recurrent GI bleed. Hgb has been chronically low from this with Anemia of ESRD. S/p PRBC x1 . Getting procrit with HD. EGD likely on Friday but will defer to GI. -Avoid blood transfusion as patient is a transplant candidate. Will transfuse only when hemoglobin is significantly less than 7 and symptomatic (2) ESRD (end stage renal disease) on dialysis: Plan: has e/o fluid overload. Patient had dialysis yesterday. Electrolytes are stable no signs of volume overload. No indication for dialysis today. Next dialysis will be Friday. Admission and Anticipated Discharge Date Admission Date: January 18, 2021 Subjective Seen in follow-up for ESRD. No shortness of breath. Hemoglobin stable dropping to 7.3 today. Patient is now agreeable to endoscopic. Review of Systems Review of Systems: All other systems were reviewed and negative except as noted in HPI Physical Exam Physical Exam: General exam: Appears comfortable, no acute distress HEENT: Pupils are equal and reactive to light Neck: No JVD, neck is supple trachea is midline Respiratory system: Clear breath sounds bilaterally. Gastrointestinal: Abdomen is soft, non distended, non tender, bowel sounds are present CVS: Regular rate and rhythm. No murmurs, rubs or gallops Musculoskeletal: No joint or muscle tenderness Extremities: Non tender, no edema, peripheral pulses are present Neuro: Oriented, no tremors, no focal neurological deficits Skin: No rashes Access: Right forearm AV fistula with good bruit Results & Data ([facility]) Vital Signs (Past 12 Hours) Vital Signs Temp Pulse Resp BP Pulse Ox 01/20/21 07:00 36.9 C 81 20 149/79 H 95 Laboratory Results 01/20/21 06:33 01/20/21 06:33 WBC 9.66 RBC 2.41 L MCV 90.9 MCH 30.3 MCHC 33.3 RDW Std Deviation 53.1 H RDW Coeff of Selin 15.8 H Plt Count 190 MPV 9.0
--- NOTE | 2021-01-20 15:20 | Pharmacy Report ---
Pharmacy Glycemic Short Note 2 - Date of Service January 20, 2021 - Glycemic Short BSG Results (Last 24 hours): 01/19/21 01/19/21 01/19/21 15:34 17:19 20:48 Glucose POC Glucose 174 H 243 H 262 H 01/20/21 01/20/21 01/20/21 06:33 08:21 11:47 Glucose 118 H POC Glucose 179 H 237 H OUTPATIENT ANTIDIABETIC REGIMEN: * Lantus 56 units SC AM * Novolog 16 units SC TIDM * HbA1c 6.8% on 01/19/21 but patient with ESRD ASSESSMENT: 01/20: * Patient received total 73 units of insulin yesterday; 38 units basal and 35 units bolus. * Fasting BSG today was 179 mg/dl. Continued Lantus dose scale based on BSG this AM. Further added a smaller dose scale for HS. * Post-prandial BSGs are elevated above 200 mg/dl. Tightened Novolog CF with lunch today. 01/19/21: * 40 yo M admitted yesterday secondary to symptomatic anemia. Pharmacy has been consulted for assistance with inpatient glycemic management. Patient is a type 1 diabetic with ESRD on HD MWF managed on basal bolus insulin at home. Most recent HbA1c was 7.0% but was greater than three months ago. Will order an updated HbA1c. * BSG upon arrival to ED yesterday was 52 mg/dL with a recheck of 68 mg/dL. Patient was provided with 16 oz of juice. Unknown if he was symptomatic. Recheck at dinner time was 154 mg/dL. Patient did not have a diet ordered and did not eat so no insulin was provided. * At bedtime, patient's BSG was 125 mg/dL and he received 5 units of Novolog to cover the 26 g of CHO he consumed. Overnight check was 120 mg/dL. * He does report taking 56 units of Lantus yesterday morning prior to admission. His fasting BSG was 388 mg/dL this AM. He is currently NPO for GI evaluation of anemia but it seems that he is refusing any procedures. He is scheduled for HD today. * Received a 30% reduction in home dose of Lantus this AM. Will continue with this for now. * Novolog is being based on previous admission data. May need adjusted if diet ordered and tolerated this afternoon. PLAN FOR INPATIENT GLYCEMIC CONTROL: * Basal insulin * Lantus 0-38 units scale based on BSG QAM (patient received 25 units today AM) * Lantus 15-20 units scale HS * Bolus insulin: continued * NovoLog per scale ACHS or Q6hrs while NPO * Goal Range: Low 120 mg/dL - High 150 mg/dL * Correction Factor: 20 mg/dL/unit * Nutritional / Prandial insulin per carb ratio of 1 unit per 5 grams CHO consumed PLAN FOR DISCHARGE: * To be determined
[2021-01-20] MEDS: ACETAMINOPHEN 325 MG TAB PO PRN (15:44)
[2021-01-20 17:50] LABS: Basophils # (auto) 0.05 K/uL (0-0.2); Basophils % (auto) 0.5 %; Eosinophils # (auto) 0.58 K/uL (0-0.5); Hematocrit (blood only) 22.4 % (42-52); Hemoglobin 7.6 g/dL (14.0-18.0); Immature Granulocytes # (auto) 0.14 K/uL (0.00-0.02); Immature Granulocytes % (auto) 1.5 %; Lymphocytes # (auto) 1.22 K/uL (1.2-3.4); Lymphocytes % (auto) 12.7 %; Mean Corpuscular Hemoglobin 30.9 pg (25-34); Mean Corpuscular Hgb Conc 33.9 g/dL (32-36); Mean Corpuscular Volume 91.1 fL (80-100); Mean Platelet Volume 9.4 fL (7.4-10.4); Monocytes # (auto) 0.39 K/uL (0.11-0.59); Neutrophils # (auto) 7.26 K/uL (1.4-6.5); Neutrophils % (auto) 75.3 %; Nucleated RBC # (auto) 0.03 K/uL (0-0); Nucleated RBC % (auto) 0.3 %; Platelet Count 223 K/uL (130-400); RDW Coefficient of Variation 15.8 % (11.5-14.5); RDW Standard Deviation 52.5 fL (36.4-46.3); Red Blood Count 2.46 M/uL (4.7-6.1); White Blood Count 9.64 K/uL (4.8-10.8)
[2021-01-20 18:15] LABS: Polychromasia 1+
[2021-01-20] MEDS: traZODone HCL 50 MG TAB PO SCH (20:35)
[2021-01-20] MEDS: lisinopril 40 MG TAB PO SCH (20:36)
[2021-01-20] MEDS: TORSEMIDE 100 MG TAB PO SCH (20:36)
[2021-01-20] MEDS: NEPHROCAPS PO SCH (20:36)
[2021-01-20] MEDS: amLODIPine BESYLATE 5 MG TAB PO SCH (20:37)
[2021-01-20] MEDS: ATORVASTATIN 40 MG TAB PO SCH (20:37)
[2021-01-20] MEDS ORDERED: MELATONIN 3 MG TAB PO PRN (22:03)
[2021-01-20] MEDS ORDERED: SUMAtriptan succinate 50 MG TAB PO STA (22:27)
[2021-01-21] MEDS: HYDROmorphone INJ 0.5 MG/0.5 ML SYR IV PRN (00:07)
[2021-01-21 08:09] LABS: Hematocrit (blood only) 20.7 % (42-52); Hemoglobin 6.8 g/dL (14.0-18.0); Mean Corpuscular Hemoglobin 30.1 pg (25-34); Mean Corpuscular Hgb Conc 32.9 g/dL (32-36); Mean Corpuscular Volume 91.6 fL (80-100); Mean Platelet Volume 9.4 fL (7.4-10.4); Nucleated RBC # (auto) 0.03 K/uL (0-0); Nucleated RBC % (auto) 0.4 %; Platelet Count 190 K/uL (130-400); RDW Standard Deviation 53.5 fL (36.4-46.3); Red Blood Count 2.26 M/uL (4.7-6.1); White Blood Count 8.71 K/uL (4.8-10.8)
[2021-01-21] MEDS: CALCIUM ACETATE 667 MG CAP/TAB PO SCH ×3 (08:28→18:01)
[2021-01-21] MEDS: hydrALAZINE TAB 50 MG TAB PO SCH ×2 (08:29→20:37)
[2021-01-21] MEDS: METOPROLOL SUCC 50MG EXT REL TAB PO SCH ×2 (08:29→20:36)
[2021-01-21] MEDS: PANTOprazole 40 MG in SYRINGE 0 ML IV SCH ×2 (08:30→20:36)
[2021-01-21 08:32] LABS: BUN Creatinine Ratio 4.8 (10-20); Calcium 9.3 mg/dl (8.5-10.1); Creatinine Clr Calc Pharmacy 13.7 ml/min; Est GFR (African American) 8.1 ml/min; Potassium 3.6 mmol/L (3.5-5.1)
[2021-01-21] MEDS: INSULIN ASPART 100 UNITS/ML 3 ML PEN SC SCH ×4 (08:38→20:37)
[2021-01-21] MEDS: INSULIN GLARGINE SOLOSTAR 100 UNITS/ML 3 ML PEN SC SCH ×2 (08:38→20:38)
[2021-01-21 08:57] LABS: Basophils # (auto) 0.03 K/uL (0-0.2); Basophils % (auto) 0.3 %; Eosinophils # (auto) 0.41 K/uL (0-0.5); Eosinophils % (auto) 4.7 %; Immature Granulocytes # (auto) 0.14 K/uL (0.00-0.02); Immature Granulocytes % (auto) 1.6 %; Lymphocytes # (auto) 1.05 K/uL (1.2-3.4); Lymphocytes % (auto) 12.1 %; Monocytes # (auto) 0.33 K/uL (0.11-0.59); Monocytes % (auto) 3.8 %; Neutrophils # (auto) 6.75 K/uL (1.4-6.5); Neutrophils % (auto) 77.5 %; Polychromasia 1+
--- NOTE | 2021-01-21 10:24 | Nephrology Progress Note ---
Date of Service January 21, 2021 Assessment & Plan (1) GI bleeding: Plan: Patient with GI bleed. Has been delaying Scope both as outpt and initially refused inpt but now okay with. He does need one though given recurrent GI bleed. Hgb has been chronically low from this with Anemia of ESRD. S/p PRBC x1 . Getting procrit with HD. EGD likely on Friday but will defer to GI. -Avoid blood transfusion as patient is a transplant candidate. Will transfuse only when hemoglobin is significantly less than 7 and symptomatic. Repeat hemoglobin later in the afternoon (2) ESRD (end stage renal disease) on dialysis: Plan: has e/o fluid overload. Patient had dialysis yesterday. Electrolytes are stable no signs of volume overload. No indication for dialysis today. Next dialysis will be Friday after EGD. Admission and Anticipated Discharge Date Admission Date: January 18, 2021 Subjective Seen in follow-up for ESRD. No shortness of breath. Hemoglobin dropping to 6.8 today. Patient is now agreeable to endoscopy. Review of Systems Review of Systems: All other systems were reviewed and negative except as noted in HPI Physical Exam Physical Exam: General exam: Appears comfortable, no acute distress HEENT: Pupils are equal and reactive to light Neck: No JVD, neck is supple trachea is midline Respiratory system: Clear breath sounds bilaterally. Gastrointestinal: Abdomen is soft, non distended, non tender, bowel sounds are present CVS: Regular rate and rhythm. No murmurs, rubs or gallops Musculoskeletal: No joint or muscle tenderness Extremities: Non tender, no edema, peripheral pulses are present Neuro: Oriented, no tremors, no focal neurological deficits Skin: No rashes Access: Right forearm AV fistula with good bruit Results & Data ([facility]) Vital Signs (Past 12 Hours) Vital Signs Temp Pulse Resp BP Pulse Ox 01/21/21 07:00 36.7 C 73 20 144/69 H 93 Laboratory Results 01/21/21 07:14 01/20/21 01/21/21 17:12 07:14 WBC 9.64 8.71 RBC 2.46 L 2.26 L MCV 91.1 91.6 MCH 30.9 30.1 MCHC 33.9 32.9 RDW Std Deviation 52.5 H 53.5 H RDW Coeff of Selin 15.8 H 16.0 H Plt Count 223 190 MPV 9.4 9.4
--- NOTE | 2021-01-21 11:34 | Hospitalist Progress Note ---
Date of Service January 21, 2021 Assessment & Plan (1) Symptomatic anemia: Plan: This is a 40yo M with a PMH of ESRD on HD MWF, DMII , chronic respiratory failure with hypoxia on 3L NC O2, nonischemic cardiomyopathy, pulmonary sarcoidosis, HTN and other medical problems listed below who presents from home with abnormal lab work. Symptomatic anemia with Possible GI bleed --- symptoms are improving - no episode of bloody stool - s/p 1 unit PRBC on 01/18 - hgb: 7.9> 7.8> 7.3 > 7.6 > 6.8 ----- will repeat CBC again at noon & transfuse if hgb < 7 - currently asymptomatic and VSS - GI on board: but initially refused EGD but today he is okay with getting EGD on friday --- informed Dr. Andujar: he will evaluate the pt to see if it is necessary to get EGD - Nephro on board: -Avoid blood transfusion as patient is a transplant candid ate. Will transfuse only when hemoglobin is significantly less than 7 and symptomatic Chronic respiratory failure with hypoxia - per pt he uses O2 at home at night and as needed - SpO2> 90 in room air - pt appeared euvolemic - due for HD tomorrow Acute decompensated Heart failure with reduced ejection fraction --- resolved, appeared euvolemic In setting of renal failure, heart failure Still making some urine, on torsemide 100mg HS CXR with cardiomegaly with evidence of congestive failure Given 100mg IV Lasix in ER per instruction from Dr. Tangali Appreciate nephrology input Monitor I&Os, daily weights End stage renal disease on HD HD MWF at [facility] Continue renal diet, phos binders, diuresis Sarcoidosis Follows with Dr. Blackmon as outpatient Recent lung CT from November 2020 looks improved Hypertension: stable Home regimen includes amlodipine HS, hydralazine BID, lisinopril HS and Toprol Monitor BP -blood pressure is controlled Diabetes Type 2 DM - A1c 6.9 in 08/13 Repeat a1c 6.8 Hypoglycemic episode in ER - given diet Glycemic consult placed BSG AC HS Anemia of chronic disease Hgb currently 6.8 (baseline mid 8-9) Receives iron supplementation at HD Monitor with daily CBC DVT Ppx: SCDs given anemia, possible GI bleed Code status: FULL PCP: Pilgram Dispo: Admitted to [facility] (2) ESRD (end stage renal disease) on dialysis: Admission and Anticipated Discharge Date Admission Date: January 18, 2021 Subjective Today at bedside: Pt was sitting in bed having breakfast - denied any bloody stool yesterday but has been having dark stool since 01/2020. - denied any abd pain, N/V - denied any CP or SOB - currently off oxygen supplement Review of Systems Review of Systems: all negative except as indicated in HPI Physical Exam Physical Exam: General:.NAD, well developed HEENT:. Normal Conjunctiva, EOMI Abdominal:.mild TTP of the epigastric area, small umbilical hernia, and possible b/l lower abd hernia, ND, Soft MSK:.trace pitting edema of b/l LE Psych:. AAOx3, normal affect Results & Data Results & Data ([facility]) Vital Signs (Past 12 Hours) Vital Signs Temp Pulse Resp BP Pulse Ox 01/21/21 07:00 36.7 C 73 20 144/69 H 93 Laboratory Results Short CBC 01/20/21 01/21/21 Range/Units 17:12 07:14 WBC 9.64 8.71 (4.8-10.8) K/uL Hgb 7.6 L 6.8 L* (14.0-18.0) g/dL Hct 22.4 L 20.7 L* (42-52) % Plt Count 223 190 (130-400) K/uL BMP 01/21/21 07:14 Sodium 137 Potassium 3.6 Chloride 101 Carbon Dioxide 28 BUN 41 H D Creatinine 8.65 H* D Glucose 79 Calcium 9.3
[2021-01-21 12:09] LABS: Basophils # (auto) 0.06 K/uL (0-0.2); Basophils % (auto) 0.5 %; Eosinophils # (auto) 0.44 K/uL (0-0.5); Hematocrit (blood only) 22.8 % (42-52); Hemoglobin 7.6 g/dL (14.0-18.0); Immature Granulocytes # (auto) 0.15 K/uL (0.00-0.02); Immature Granulocytes % (auto) 1.4 %; Lymphocytes # (auto) 1.22 K/uL (1.2-3.4); Lymphocytes % (auto) 11.1 %; Mean Corpuscular Hemoglobin 30.6 pg (25-34); Mean Corpuscular Hgb Conc 33.3 g/dL (32-36); Mean Corpuscular Volume 91.9 fL (80-100); Mean Platelet Volume 9.5 fL (7.4-10.4); Monocytes # (auto) 0.38 K/uL (0.11-0.59); Monocytes % (auto) 3.5 %; Neutrophils # (auto) 8.73 K/uL (1.4-6.5); Neutrophils % (auto) 79.5 %; Platelet Count 210 K/uL (130-400); RDW Standard Deviation 53.8 fL (36.4-46.3); Red Blood Count 2.48 M/uL (4.7-6.1); White Blood Count 10.98 K/uL (4.8-10.8)
[2021-01-21 12:52] LABS: RBC Morphology Unremarkable
[2021-01-21] MEDS: ACETAMINOPHEN 325 MG TAB PO PRN (12:55)
[2021-01-21] MEDS: oxyCODONE HCL IR 5 MG TAB (IMMEDIATE RELEASE) PO PRN (20:31)
[2021-01-21] MEDS: traZODone HCL 50 MG TAB PO SCH (20:36)
[2021-01-21] MEDS: NEPHROCAPS PO SCH (20:36)
[2021-01-21] MEDS: lisinopril 40 MG TAB PO SCH (20:36)
[2021-01-21] MEDS: ATORVASTATIN 40 MG TAB PO SCH (20:37)
[2021-01-21] MEDS: amLODIPine BESYLATE 5 MG TAB PO SCH (20:37)
[2021-01-21] MEDS: TORSEMIDE 100 MG TAB PO SCH (20:39)
[2021-01-22] MEDS ORDERED: Nursing to Pharmacy Communication SCH ×2 (00:15→19:00)
[2021-01-22] MEDS: INSULIN ASPART 100 UNITS/ML 3 ML PEN SC SCH ×3 (05:58→19:51)
[2021-01-22] MEDS: METOPROLOL SUCC 50MG EXT REL TAB PO SCH ×2 (07:29→20:24)
[2021-01-22] MEDS: hydrALAZINE TAB 50 MG TAB PO SCH ×2 (07:29→20:24)
[2021-01-22] MEDS: PANTOprazole 40 MG in SYRINGE 0 ML IV SCH ×2 (07:29→20:22)
[2021-01-22] MEDS: CALCIUM ACETATE 667 MG CAP/TAB PO SCH ×3 (07:29→19:40)
[2021-01-22] MEDS ORDERED: SODIUM CHLORIDE 0.9% 1000ML 1,000 ML IV PRN (08:01)
[2021-01-22 08:23] LABS: Hematocrit (blood only) 20.5 % (42-52); Hemoglobin 6.8 g/dL (14.0-18.0); Mean Corpuscular Hemoglobin 30.6 pg (25-34); Mean Corpuscular Hgb Conc 33.2 g/dL (32-36); Mean Corpuscular Volume 92.3 fL (80-100); Mean Platelet Volume 9.5 fL (7.4-10.4); Nucleated RBC # (auto) 0.02 K/uL (0-0); Nucleated RBC % (auto) 0.2 %; Platelet Count 189 K/uL (130-400); RDW Coefficient of Variation 16.2 % (11.5-14.5); RDW Standard Deviation 54.2 fL (36.4-46.3); Red Blood Count 2.22 M/uL (4.7-6.1)
[2021-01-22] MEDS ORDERED: EPOETIN ALFA 20,000 UNITS/ML VIAL IV SCH (08:30)
[2021-01-22 08:35] LABS: Basophils # (auto) 0.04 K/uL (0-0.2); Basophils % (auto) 0.4 %; Eosinophils # (auto) 0.44 K/uL (0-0.5); Eosinophils % (auto) 4.8 %; Immature Granulocytes # (auto) 0.12 K/uL (0.00-0.02); Immature Granulocytes % (auto) 1.3 %; Lymphocytes # (auto) 0.85 K/uL (1.2-3.4); Lymphocytes % (auto) 9.2 %; Monocytes # (auto) 0.27 K/uL (0.11-0.59); Monocytes % (auto) 2.9 %; Neutrophils # (auto) 7.48 K/uL (1.4-6.5); Neutrophils % (auto) 81.4 %
[2021-01-22] MEDS: INSULIN GLARGINE SOLOSTAR 100 UNITS/ML 3 ML PEN SC SCH (08:40)
[2021-01-22] MEDS ORDERED: SODIUM CHLORIDE 0.9% 250 ML IV PRN ×2 (08:41→09:11)
[2021-01-22 09:05] LABS: BUN Creatinine Ratio 4.9 (10-20); Calcium 9.4 mg/dl (8.5-10.1); Creatinine Clr Calc Pharmacy 10.2 ml/min; Est GFR (African American) 5.7 ml/min; Est GFR (Non-African American) 4.9 ml/min; Potassium 3.9 mmol/L (3.5-5.1)
[2021-01-22] MEDS: oxyCODONE HCL IR 5 MG TAB (IMMEDIATE RELEASE) PO PRN ×2 (09:19→14:04)
--- NOTE | 2021-01-22 10:02 | Gastroenterology Progress Note ---
Date of Service January 22, 2021 Assessment & Plan (1) Symptomatic anemia: Plan: Pt is a 40 y/o male admitted w anemia, reported black stools x years on Ferric Citrate PO, BRBPR last week and continued black stools. He was recommended endoscopic evals last week but he refused. Blood ct dropped again this AM. He is agreeable to EGD evaluation now. - Keep NPO for EGD evaluation (add on case) - PPI IV BID - Monitor blood ct and transfuse prn . Admission and Anticipated Discharge Date Admission Date: January 18, 2021 Supervising Physician Co-Signing Physician Notes I have seen and examined the patient and discussed the management with LEAH Min. History of esrd with anemia. No overt gi bleeding noted PE - multiple tatoos on arms, abd - large but soft labs reviewed EGD for evaluation of anemia. Subjective Pt's blood ct dropped this AM w Hgb of 6. Unchanged in stool color which he reported had been black for years. Feels fatigued, but no CP, SOB, abd pain, n/v. Review of Systems Review of Systems: All systems reviewed & are unremarkable except as noted in HPI & below Physical Exam Constitutional: WD/WN, vitals as above well groomed, cooperative and comfortable Eyes: PERRL, conjunctivae normal, anicteric sclerae ENMT: external ear and nose normal, oropharynx normal Respiratory: normal respiratory effort, lungs clear to auscultation Cardiovascular: RRR, no murmur, no edema Gastrointestinal (Abdomen): normal bowel sounds, soft, nontender, no hepatosplenomegaly Skin: no rashes, warm and dry no jaundice Psychiatric: A+Ox3, euthymic affect Lymphatic: no lymphedema Results & Data ([facility]) Vital Signs (Past 12 Hours) Vital Signs Temp Pulse Resp BP Pulse Ox 01/22/21 07:07 36.9 C 73 18 143/76 H 95 01/21/21 22:54 36.6 C 77 18 119/62 92
[2021-01-22] MEDS ORDERED: ePHEDrine sulfate 50 MG/ML AMP IV PRN (11:39)
[2021-01-22] MEDS ORDERED: ATROPINE SULFATE 0.1 MG/ML 10ML SYR IV PRN (11:39)
--- NOTE | 2021-01-22 11:39 | Anesthesiology Consultation ---
Date of Service January 22, 2021 Assessment & Plan Chart Review Chart Review: Acceptable Risk for Surgery and Patient NOT seen in Pre Admission Testing Consults Requested none ASA ASA4 Proposed Anesthesia Anesthesia Type: MAC Risk / Benefits Reviewed With: PT / POA / Parent / Guardian, Accepts Plan and Informed Consent Obtained Additional Comments: covid test neg. History Surgery Operation Date: 01/22/21 17:15 Proposed Procedures p Esophagogastroduodenoscopy Dr. Nathalie Zelaya MD Height/Weight Height: 5 ft 10 in Weight: 100.2 kg Allergies Allergy/AdvReac Type Severity Reaction Status Date / Time No Known Allergies Allergy Unknown Verified 01/22/21 11:14 Medications Home Medications Medication Instructions Recorded Confirmed Last Taken insulin glargine 100 unit/mL (3 56 unit SUBCUT QAM 05/24/19 01/18/21 01/18/21 mL) subcutaneous pen (Lantus Solostar U-100 Insulin) amlodipine 10 mg tablet 10 mg PO HS 06/11/19 01/18/21 01/17/21 calcium acetate(phosphat bind) 667 1,334 mg PO AC 06/11/19 01/18/21 01/18/21 mg tablet lisinopril 40 mg tablet 40 mg PO HS 06/11/19 01/18/21 01/17/21 calcium carbonate 200 mg calcium 200 mg PO DAILY PRN 02/03/20 01/18/21 Unknown (500 mg) chewable tablet (Tums) hydralazine 25 mg tablet 25 mg PO BID 02/03/20 01/18/21 01/18/21 vitamin B complex-vitamin C-folic 1 tab PO PM 02/03/20 01/18/21 01/17/21 acid 0.8 mg tablet (Myrna-Bello) albuterol sulfate 90 mcg/actuation 2 puff INHALATION Q6 PRN 10/13/20 01/18/21 Unknown aerosol inhaler atorvastatin 40 mg tablet 40 mg PO PM 10/13/20 01/18/21 01/17/21 insulin aspart U-100 100 unit/mL 16 unit SUBCUT AC 10/13/20 01/18/21 01/18/21 (3 mL) subcutaneous pen (Novolog 16 units Flexpen U-100 Insulin aspart) lorazepam 1 mg tablet 1 mg PO UD 10/13/20 01/18/21 Unknown metoprolol succinate 50 mg 50 mg PO BID 10/13/20 01/18/21 01/18/21 tablet,extended release 24 hr torsemide 100 mg tablet 100 mg PO PM 10/13/20 01/18/21 01/17/21 aspirin 81 mg tablet 81 mg PO QAM 12/26/20 01/18/21 01/18/21 trazodone 50 mg tablet 50 mg PO HS 12/26/20 01/18/21 01/17/21 ferric citrate 210 mg iron tablet 420 mg PO AC 01/18/21 01/18/21 01/18/21 (Auryxia) Active Medications Generic Name Dose Route Start Last Admin Trade Name Freq PRN Reason Stop Dose Admin Acetaminophen 650 mg 01/18/21 19:59 01/21/21 12:55 Acetaminophen 325 Mg Tab PO 02/17/21 19:58 650 mg Q6H PRN Administration Fever/pain Amlodipine Besylate 10 mg 01/18/21 21:00 01/21/21 20:37 Amlodipine Besylate 5 Mg Tab PO 02/17/21 20:59 10 mg HS CHENG Administration Atorvastatin Calcium 40 mg 01/18/21 21:00 01/21/21 20:37 Atorvastatin 40 Mg Tab PO 02/17/21 20:59 40 mg PM CHENG Administration Calcium Acetate 1,334 mg 01/18/21 17:30 01/22/21 07:29 Calcium Acetate 667 Mg Cap/Tab PO 02/17/21 17:29 1,334 mg AC CHENG Administration Hydralazine HCl 50 mg 01/18/21 21:00 01/22/21 07:29 Hydralazine Tab 50 Mg Tab PO 02/17/21 20:59 50 mg BID CHENG Administration Hydromorphone HCl 0.5 mg 01/20/21 23:57 01/21/21 00:07 Hydromorphone Inj 0.5 Mg/0.5 Ml Syr IV 02/03/21 23:56 0.5 mg Q6H PRN Administration Pain Pantoprazole Sodium 40 mg/ 10 mls @ 5 mls/min 01/19/21 21:00 01/22/21 07:29 Syringe IV 02/18/21 20:59 5 mls/min BID CHENG Administration Insulin Aspart 0 units 01/22/21 06:00 01/22/21 05:58 Insulin Aspart 100 Units/Ml 3 Ml Pen SC 02/21/21 05:59 Not Given Q6 CHENG Insulin Glargine 0 units 01/19/21 09:00 01/22/21 08:40 Insulin Glargine Solostar 100 Units/Ml 3 Ml Pen SC 02/18/21 08:59 Not Given QAM CHENG Protocol Insulin Glargine 0 units 01/20/21 21:00 01/21/21 20:38 Insulin Glargine Solostar 100 Units/Ml 3 Ml Pen SC 02/19/21 20:59 15 units HS CHENG Administration Protocol Lisinopril 40 mg 01/18/21 21:00 01/21/21 20:36 Lisinopril 40 Mg Tab PO 02/17/21 20:59 40 mg HS CHENG Administration Melatonin 3 mg 01/20/21 22:03 01/20/21 22:54 Melatonin 3 Mg Tab PO 02/19/21 22:02 3 mg HS PRN Administration Sleep Metoprolol Succinate 50 mg 01/18/21 21:00 01/22/21 07:29 Metoprolol Succ 50mg Ext Rel Tab PO 02/17/21 20:59 50 mg BID CHENG Administration Oxycodone HCl 5 mg 01/20/21 23:58 01/22/21 09:19 Oxycodone Hcl Ir 5 Mg Tab (Immediate Release) PO 02/03/21 23:57 5 mg Q4H PRN Administration Pain Sumatriptan Succinate 50 mg 01/19/21 18:32 01/19/21 21:18 Sumatriptan Succinate 50 Mg Tab PO 02/18/21 18:31 50 mg BID PRN Administration Migraine Headache Torsemide 100 mg 01/18/21 21:00 01/21/21 20:39 Torsemide 100 Mg Tab PO 02/17/21 20:59 100 mg PM CHENG Administration Trazodone HCl 50 mg 01/18/21 21:00 01/21/21 20:36 Trazodone Hcl 50 Mg Tab PO 02/17/21 20:59 50 mg HS CHENG Administration Vitamin B Complex/Folic Acid 1 cap 01/18/21 21:00 01/21/21 20:36 Nephrocaps PO 02/17/21 20:59 1 cap PM CHENG Administration NPO Date Last Intake of Fluids: 01/22/21 Time Last Intake of Fluids: 08:00 Last Intake of Fluids Comment: with meds Date Last Intake of Solids: 01/21/21 Time Last Intake of Solids: 20:00 Last Intake of Solids Comment: dinner Past Medical History Medical History A-V fistula right Abnormal CT scan of lung Anemia Chronic respiratory failure with hypoxia Diabetes IDDM (Type 1 per records) Dyslipidemia End stage renal disease diaylsis - M,W,F ([facility], [place]) Heart failure with reduced ejection fraction Hypertension Obesity Sarcoidosis per records Seizure disorder remote hx (2007) in setting of hypoglycemia (?ETOH related per records), no issues since Exercise / Class Metabolic Activity III < 4 Walking/Shop/Light housework Past Family History Family History Father Hypertension Past Surgical History Surgical History History of vascular access device permacath insertion Hx of biopsy kidney bx PONV (postoperative nausea and vomiting) Status post creation of arteriovenous fistula right: 07/15/17: MAC sedation at [facility] Past Anesthesia History No Hx of Anesthesia Complications and No Family Hx of Anesthesia Complications History of PONV No Hx of PONV and No Hx of Motion Sickness Social History Smoking Status: Former smoker tobacco type: smokeless tobacco Do You Dip or Chew Tobacco: Yes Hx Alcohol Use: Yes Alcohol Intake Frequency Comment: Has not drank for 3 years Hx Substance Use: No substance use type: does not use Physical Exam Vital Signs Last Vital Signs Temp 36.4 C L 01/22/21 11:15 Pulse 76 01/22/21 11:15 Resp 18 01/22/21 11:15 BP 146/71 H 01/22/21 11:15 Pulse Ox 94 01/22/21 11:15 Constitutional + obese ENMT Mouth: no dentition abnormality Thyromental Distance: > or= 3.5 Finger Breadths Mallampati Class: II Neck normal visual inspection, trachea midline and + facial hair; neck extension not limited Respiratory normal respiratory effort Auscultation: + diminished lung sounds and + crackles Cardiovascular Rate/Rhythm: regular rate and regular rhythm Heart Sounds: no murmur Vessels: no carotid bruit Musculoskeletal Spine: normal cervical ROM Extremities: + extremities abnormal to inspection Neurologic moves all extremities Motor/Sensory: no sensory deficit Psychiatric Orientation: alert and oriented x 3 Testing Laboratory Results 01/22/21 07:44 01/22/21 07:44 PT 9.3 Seconds (9.0-12.0) 01/18/21 12:34 INR 0.9 (0.9-1.1) 01/18/21 12:34 Hemoglobin A1c 6.8 % (4.5-5.6) H 01/19/21 09:26 Urine Color Yellow 01/19/21 Unknown Urine Appearance Clear (Clear) 01/19/21 Unknown Urine pH 7.5 (4.5-7.5) 01/19/21 Unknown Ur Specific [place] 1.012 (1.000-1.030) 01/19/21 Unknown Urine Protein 3+ (Negative) H 01/19/21 Unknown Urine Glucose (UA) 1+ (Negative) H 01/19/21 Unknown Urine Ketones Negative (Negative) 01/19/21 Unknown Urine Nitrite Negative (Negative) 01/19/21 Unknown Ur Leukocyte Esterase Negative (Negative) 01/19/21 Unknown Urine WBC (Auto) 1-5 /hpf (0-5) 01/19/21 Unknown Urine RBC (Auto) 10-30 /hpf (0-4) H 01/19/21 Unknown U Hyaline Cast (Auto) 1-5 /lpf (0-5) 01/19/21 Unknown U Epithel Cells (Auto) 0-5 /lpf (0-5) 01/19/21 Unknown Urine Bacteria (Auto) Negative (Negative) 01/19/21 Unknown Blood Type O Positive 01/22/21 09:42 Antibody Screen NEGATIVE 01/22/21 09:42 01/22/21 05:54 POC Glucose 97 Electrocardiogram Date: 01/18/21 Findings: + NSR @ (at 84;prolonged qt) Chest X-Ray Date: 01/18/21 Findings: + cardiomegaly and + pulmonary vascular congestion
[2021-01-22] MEDS ORDERED: LIDOCAINE 2% 2 ML VIAL/AMP(20MG/ML) INFIL ONE (11:44)
[2021-01-22] MEDS ORDERED: PROPOFOL IV EMULSION 10 MG/ML 20 ML VIAL IV ONE (11:44)
[2021-01-22] MEDS ORDERED: KETAMINE 50 MG/5 ML SYRINGE ONE (11:44)
[2021-01-22] MEDS ORDERED: fentaNYL citrate 100 MCG/2 ML VIAL ONE (11:49)
--- NOTE | 2021-01-22 12:09 | GI REPORT ---
Patient Name: Sean Justice Procedure Date: 01/22/2021 11:51 AM Date of : 1980 Admit Type: Inpatient Age: 40 Gender: Male Attending MD: Clemencia Zelaya M.d. Procedure: Upper GI endoscopy Providers: Clemencia Zelaya M.d. Referring MD: Jaime Lovelace Indications: Anemia Medicines: Propofol per Anesthesia, Lidocaine Complications: No immediate complications. Estimated Blood Loss: Estimated blood loss: none. Procedure: Pre-Anesthesia Assessment: - Patient identification and proposed procedure were verified prior to the procedure by the physician, the nurse and the anesthesiologist. The procedure was verified in the pre-procedure area. - Prior to the procedure, a History and Physical was performed, and patient medications, allergies and sensitivities were reviewed. The patient's tolerance of previous anesthesia was reviewed. - The risks and benefits of the procedure and the sedation options and risks were discussed with the patient. All questions were answered and informed consent was obtained. After obtaining informed consent, the endoscope was passed under direct vision. Throughout the procedure, the patient's blood pressure, pulse, and oxygen saturations were monitored continuously. The Scope was introduced through the mouth, and advanced to the second part of duodenum. The upper GI endoscopy was accomplished without difficulty. The patient tolerated the procedure well. Findings: The examined esophagus appeared normal. The Z-line appeared regular. A medium amount of food (residue) was found in the gastric body. The examined stomach appeared normal. The duodenal bulb and second portion of the duodenum appeared normal. Impression: - Normal esophagus. - Z-line regular. - A medium amount of food (residue) in the stomach. - Normal duodenal bulb and second portion of the duodenum. Bile was present. Recommendation: - Consider checking iron studies. - He has a normocytic anemia without evidence of gross gi bleeding on today's exam- consider anemia related to his ckdz. Warren Wilkinson M.d. 01/22/2021 12:08:54 PM This report has been signed electronically. Note Initiated On: 01/22/2021 11:51 AM Number of Addenda: 0 I attest to the content of the Intraoperative Record and orders documented therein, exceptions below {[id number]}
--- NOTE | 2021-01-22 12:23 | Anesthesiology Progress Note ---
Date of Service January 22, 2021 Anesthesia Post Procedure Vital Signs Vital Signs: Temp Pulse Pulse Resp BP Pulse Ox 01/22/21 12:10 70 18 132/80 96 01/22/21 11:15 36.4 C L 76 18 146/71 H 94 01/22/21 07:07 36.9 C 73 18 143/76 H 95 01/21/21 22:54 36.6 C 77 18 119/62 92 01/21/21 20:34 74 137/75 91 01/21/21 15:00 36.7 C 68 20 122/78 93 Pain Intensity Head: Pain Intensity: 6 Transfer of Care Handoff Completed per policy Notes Mental Status: alert / awake / arousable Patient Amnestic to Procedure: Yes Nausea / Vomiting: adequately controlled Pain: adequately controlled Airway Patency, RR, SpO2: stable & adequate BP & HR: stable & adequate Hydration State: stable & adequate Anesthetic Complications: no major complications apparent
--- NOTE | 2021-01-22 13:34 | Hospitalist Progress Note ---
Date of Service January 22, 2021 Assessment & Plan (1) Symptomatic anemia: Plan: This is a 40yo M with a PMH of ESRD on HD MWF, DMII , chronic respiratory failure with hypoxia on 3L NC O2, nonischemic cardiomyopathy, pulmonary sarcoidosis, HTN and other medical problems listed below who presents from home with abnormal lab work. Symptomatic anemia with Possible GI bleed Patient denies any melena or bright red blood per rectum. s/p 1 unit PRBC on 01/18 Hgb: 7.9> 7.8> 7.3 > 7.6 > 6.8; today at 6.8 Transfuse for hemoglobin less than 7. Will repeat CBC post-dialysis today. GI on board: Patient remains n.p.o., plan for EGD today Nephro on board: -Avoid blood transfusion as patient is a transplant candidate. Will transfuse only when hemoglobin is significantly less than 7 and symptomatic Chronic respiratory failure with hypoxia - per pt he uses O2 at home at night and as needed - SpO2> 90 in room air - pt appeared euvolemic; plan for hemodialysis later today. Acute decompensated Heart failure with reduced ejection fraction Resolved. In setting of renal failure, heart failure Still making some urine, on torsemide 100mg HS CXR with cardiomegaly with evidence of congestive failure Appreciate nephrology input Monitor I&Os, daily weights End stage renal disease on HD HD MWF at [facility] Continue renal diet, phos binders, diuresis Sarcoidosis Follows with Dr. Blackmon as outpatient Recent lung CT from November 2020 looks improved Hypertension: stable Home regimen includes amlodipine HS, hydralazine BID, lisinopril HS and Toprol Monitor BP -blood pressure is controlled Diabetes Type 2 DM - A1c 6.9 in 08/13 Repeat a1c 6.8 Hypoglycemic episode in ER - given diet Glycemic consult placed BSG AC HS Anemia of chronic disease Hgb currently 6.8 (baseline mid 8-9) Receives iron supplementation at HD Monitor with daily CBC DVT Ppx: SCDs given anemia, possible GI bleed Code status: FULL PCP: Pilgram Dispo: Admitted to [facility] (2) ESRD (end stage renal disease) on dialysis: Admission and Anticipated Discharge Date Admission Date: January 18, 2021 Subjective Patient reports he feels awful. Upset that his EGD got alert this morning. Denies any chest pain or shortness of breath. Denies any nausea or vomiting. Denies any abdominal discomfort. Hemoglobin of 6.8 this morning. Review of Systems Review of Systems: All systems reviewed & are unremarkable except as noted in HPI & below Physical Exam Physical Exam: General: A&Ox3 HENT: NCAT, MMM, EOMI Eyes: PERRLA Neck: Supple, normal range of motion CVS: normal rate and rhythm Resp: b/l crackles appreciated Abdomen: Soft, ND/NT, +BS Extremities: Right upper extremity fistula in place Neuro: face symmetric, strength grossly equal, no focal deficit Skin: warm and dry, no rashes/lesions/errythema MSK: normal ROM, no joint swelling/erythema Results & Data Results & [facility] ([facility]) Vital Signs (Past 12 Hours) Vital Signs Temp Pulse Pulse Resp BP Pulse Ox 01/22/21 12:43 68 18 142/80 H 94 01/22/21 12:25 69 18 144/72 H 96 01/22/21 12:10 70 18 132/80 96 01/22/21 11:15 36.4 C L 76 18 146/71 H 94 01/22/21 07:07 36.9 C 73 18 143/76 H 95
[2021-01-22] MEDS ORDERED: INSULIN GLARGINE SOLOSTAR 100 UNITS/ML 3 ML PEN SC SCH (18:00)
--- NOTE | 2021-01-22 18:34 | Dialysis Progress Note ---
Date of Service January 22, 2021 Assessment & Plan (1) GI bleeding: Plan: Patient with GI bleed. Has been delaying Scope both as outpt and initially refused inpt but now accepts it: unremarkable EGD 01/22; to date no source found for recurrent GI bleed. Hgb has been chronically low from this with Anemia of ESRD. S/p PRBC x1 . Getting procrit with HD. -Avoid/miminize blood transfusion as patient is a transplant candidate. Will transfuse only when hemoglobin is significantly less than 7 and symptomatic. Repeat hemoglobin later in the afternoon (2) ESRD (end stage renal disease) on dialysis: Plan: has e/o fluid overload. Patient had dialysis yesterday. Electrolytes are stable w/o signs of volume overload. had dialysis today post EGD >> seen on tx. tolerating 3L UF target. next HD tentatively for 01/24 Admission and Anticipated Discharge Date Admission Date: January 18, 2021 Subjective c/o L hip, knee pain; c/o fatigue; getting blood on dialysis; no cramping, no n/v; breathing at baseline Review of Systems Review of Systems: All systems reviewed & are unremarkable except as noted in Subjective Physical Exam Constitutional: well developed and well nourished Eyes: EOM intact bilaterally ENMT: Ears: no external ear abnormality Nose: no external nose abnormality Mouth: + dry oral mucous membranes Neck: no nuchal rigidity Respiratory: normal respiratory effort Auscultation: + diminished lung sounds Cardiovascular: Rate/Rhythm: regular rate and regular rhythm Heart Sounds: normal S1 and normal S2 Extremities: + AV fistula (+t/b); no edema Gastrointestinal (Abdomen): Inspection/Auscultation: normal bowel sounds Percussion/Palpation: abdomen soft; abdomen nontender Musculoskeletal: Extremities: strength 5/5 throughout Skin: no rashes, warm and dry Neurologic: morocho, fluent speech, no tremor Results & Data ([facility]) Vital Signs (Past 12 Hours) Vital Signs Temp Pulse Pulse Pulse Pulse Resp BP 01/22/21 17:40 72 140/85 01/22/21 17:20 73 123/62 01/22/21 17:00 72 132/67 01/22/21 16:40 68 105/52 L 01/22/21 16:20 69 113/60 01/22/21 16:00 71 127/72 01/22/21 15:47 36.8 C 69 18 119/71 01/22/21 15:45 69 119/71 01/22/21 15:30 71 118/63 01/22/21 15:15 72 114/60 01/22/21 15:00 37.0 C 71 18 128/72 01/22/21 14:45 71 134/74 01/22/21 14:41 36.6 C 71 18 134/74 01/22/21 14:40 72 139/78 01/22/21 14:27 71 134/74 01/22/21 14:16 36.6 C 70 01/22/21 12:43 68 18 01/22/21 12:25 69 18 01/22/21 12:10 70 18 01/22/21 11:15 36.4 C L 76 18 01/22/21 07:07 36.9 C 73 18 BP Pulse Ox 01/22/21 17:40 01/22/21 17:20 01/22/21 17:00 01/22/21 16:40 01/22/21 16:20 01/22/21 16:00 01/22/21 15:47 01/22/21 15:45 01/22/21 15:30 01/22/21 15:15 01/22/21 15:00 01/22/21 14:45 01/22/21 14:41 01/22/21 14:40 01/22/21 14:27 01/22/21 14:16 01/22/21 12:43 142/80 H 94 01/22/21 12:25 144/72 H 96 01/22/21 12:10 132/80 96 01/22/21 11:15 146/71 H 94 01/22/21 07:07 143/76 H 95 Laboratory Results 01/22/21 07:44 01/22/21 07:44
[2021-01-22] MEDS: HYDROmorphone INJ 0.5 MG/0.5 ML SYR IV PRN (19:47)
[2021-01-22 20:00] LABS: Basophils # (auto) 0.04 K/uL (0-0.2); Basophils % (auto) 0.5 %; Eosinophils # (auto) 0.38 K/uL (0-0.5); Eosinophils % (auto) 4.5 %; Hematocrit (blood only) 26.7 % (42-52); Hemoglobin 8.9 g/dL (14.0-18.0); Immature Granulocytes # (auto) 0.15 K/uL (0.00-0.02); Immature Granulocytes % (auto) 1.8 %; Lymphocytes # (auto) 1.01 K/uL (1.2-3.4); Lymphocytes % (auto) 11.9 %; Mean Corpuscular Hemoglobin 30.7 pg (25-34); Mean Corpuscular Hgb Conc 33.3 g/dL (32-36); Mean Corpuscular Volume 92.1 fL (80-100); Mean Platelet Volume 9.2 fL (7.4-10.4); Monocytes # (auto) 0.37 K/uL (0.11-0.59); Monocytes % (auto) 4.3 %; Neutrophils # (auto) 6.56 K/uL (1.4-6.5); Platelet Count 204 K/uL (130-400); RDW Coefficient of Variation 15.7 % (11.5-14.5); White Blood Count 8.51 K/uL (4.8-10.8)
[2021-01-22] MEDS: lisinopril 40 MG TAB PO SCH (20:24)
[2021-01-22] MEDS: traZODone HCL 50 MG TAB PO SCH (20:24)
[2021-01-22] MEDS: amLODIPine BESYLATE 5 MG TAB PO SCH (20:24)
[2021-01-22] MEDS: ATORVASTATIN 40 MG TAB PO SCH (20:24)
[2021-01-22] MEDS: TORSEMIDE 100 MG TAB PO SCH (20:24)
[2021-01-22] MEDS: NEPHROCAPS PO SCH (20:24)
[2021-01-23] MEDS: INSULIN ASPART 100 UNITS/ML 3 ML PEN SC SCH ×5 (00:06→20:39)
[2021-01-23] MEDS: HYDROmorphone INJ 0.5 MG/0.5 ML SYR IV PRN ×2 (01:44→20:43)
[2021-01-23 07:50] LABS: Basophils # (auto) 0.05 K/uL (0-0.2); Basophils % (auto) 0.6 %; Eosinophils % (auto) 4.7 %; Hematocrit (blood only) 22.8 % (42-52); Hemoglobin 7.8 g/dL (14.0-18.0); Immature Granulocytes # (auto) 0.17 K/uL (0.00-0.02); Lymphocytes # (auto) 0.94 K/uL (1.2-3.4); Lymphocytes % (auto) 11.2 %; Mean Corpuscular Hemoglobin 31.5 pg (25-34); Mean Corpuscular Hgb Conc 34.2 g/dL (32-36); Mean Corpuscular Volume 91.9 fL (80-100); Mean Platelet Volume 9.1 fL (7.4-10.4); Monocytes # (auto) 0.31 K/uL (0.11-0.59); Monocytes % (auto) 3.7 %; Neutrophils # (auto) 6.56 K/uL (1.4-6.5); Neutrophils % (auto) 77.8 %; Nucleated RBC # (auto) 0.02 K/uL (0-0); Nucleated RBC % (auto) 0.2 %; Platelet Count 197 K/uL (130-400); RDW Coefficient of Variation 15.9 % (11.5-14.5); RDW Standard Deviation 52.9 fL (36.4-46.3); Red Blood Count 2.48 M/uL (4.7-6.1); White Blood Count 8.43 K/uL (4.8-10.8)
[2021-01-23 08:17] LABS: Polychromasia 1+
[2021-01-23] MEDS: hydrALAZINE TAB 50 MG TAB PO SCH ×2 (08:31→20:51)
[2021-01-23] MEDS: oxyCODONE HCL IR 5 MG TAB (IMMEDIATE RELEASE) PO PRN ×2 (08:31→17:59)
[2021-01-23] MEDS: CALCIUM ACETATE 667 MG CAP/TAB PO SCH ×3 (08:31→17:48)
[2021-01-23] MEDS: METOPROLOL SUCC 50MG EXT REL TAB PO SCH ×2 (08:32→20:51)
[2021-01-23] MEDS: INSULIN GLARGINE SOLOSTAR 100 UNITS/ML 3 ML PEN SC SCH ×2 (08:35→20:38)
[2021-01-23 08:40] LABS: BUN Creatinine Ratio 4.4 (10-20); Calcium 8.8 mg/dl (8.5-10.1); Creatinine Clr Calc Pharmacy 16.3 ml/min; Est GFR (Non-African American) 8.6 ml/min; Potassium 4.1 mmol/L (3.5-5.1)
[2021-01-23] MEDS: PANTOprazole 40 MG in SYRINGE 0 ML IV SCH ×2 (08:47→20:43)
--- NOTE | 2021-01-23 16:00 | Hospitalist Progress Note ---
Date of Service January 23, 2021 Assessment & Plan (1) Symptomatic anemia: Plan: This is a 40yo M with a PMH of ESRD on HD MWF, DMII , chronic respiratory failure with hypoxia on 3L NC O2, nonischemic cardiomyopathy, pulmonary sarcoidosis, HTN and other medical problems listed below who presents from home with abnormal lab work. Symptomatic anemia with Possible GI bleed Patient denies any melena or bright red blood per rectum. s/p 1 unit PRBC on 01/18 and 1 U on 01/22 Hgb of 7 on admission; was give one U. Hgb of 6.8 on 01/22; was given second U. S/P EGD on 01/22 without any acute findings. Appreicte GI input; workup for CKD being cause of anemia. Nephro on board: -Avoid blood transfusion as patient is a transplant candidate. Will transfuse only when hemoglobin is significantly less than 7 and symptomatic. Monitor daily CBC. ON 01/22 patient recived 1 U of PRBC and responded good. Hgb today at 7.8. If no further episodes of bleeding; can be discharged. Iron, IBC and ferritin is ordered. Chronic respiratory failure with hypoxia - per pt he uses O2 at home at night and as needed - Currently on 2L NC; remains stable - pt appeared euvolemic; plan for hemodialysis later tomorrow Acute decompensated Heart failure with reduced ejection fraction Resolved. In setting of renal failure, heart failure Still making some urine, on torsemide 100mg HS CXR with cardiomegaly with evidence of congestive failure Appreciate nephrology input Monitor I&Os, daily weights End stage renal disease on HD HD MWF at [facility] Continue renal diet, phos binders, diuresis Sarcoidosis Follows with Dr. Blackmon as outpatient Recent lung CT from November 2020 looks improved Hypertension: stable Home regimen includes amlodipine HS, hydralazine BID, lisinopril HS and Toprol Monitor BP -blood pressure is controlled Diabetes Type 2 DM - A1c 6.9 in 08/13 Repeat a1c 6.8 Hypoglycemic episode in ER - given diet Glycemic consult placed BSG AC HS Anemia of chronic disease Hgb currently 7.8 (baseline mid 8-9) Receives iron supplementation at HD Monitor with daily CBC DVT Ppx: SCDs given anemia, possible GI bleed Code status: FULL PCP: Pilgram Dispo: Admitted to [facility] (2) ESRD (end stage renal disease) on dialysis: Admission and Anticipated Discharge Date Admission Date: January 18, 2021 Subjective Patient is doing okay this morning. Have not had bowel movement since Friday. No active episodes of bleeding. Denies any nausea or vomiting. Denies any chest pain, shortness of breath or abdominal pain. Rest of the review of systems negative. Review of Systems Review of Systems: All systems reviewed & are unremarkable except as noted in HPI & below Physical Exam Physical Exam: General: A&Ox3 HENT: NCAT, MMM, EOMI Eyes: PERRLA Neck: Supple, normal range of motion CVS: normal rate and rhythm Resp: b/l crackles appreciated Abdomen: Soft, ND/NT, +BS Extremities: Right upper extremity fistula in place Neuro: face symmetric, strength grossly equal, no focal deficit Skin: warm and dry, no rashes/lesions/errythema MSK: normal ROM, no joint swelling/erythema Results & Data Results & Data ([facility]) Vital Signs (Past 12 Hours) Vital Signs Temp Pulse Pulse Resp BP Pulse Ox 01/23/21 15:54 36.6 C 69 18 135/73 92 01/23/21 07:24 36.8 C 77 20 131/68 92
[2021-01-23] MEDS: TORSEMIDE 100 MG TAB PO SCH (20:51)
[2021-01-23] MEDS: traZODone HCL 50 MG TAB PO SCH (20:51)
[2021-01-23] MEDS: NEPHROCAPS PO SCH (20:51)
[2021-01-23] MEDS: lisinopril 40 MG TAB PO SCH (20:51)
[2021-01-23] MEDS: amLODIPine BESYLATE 5 MG TAB PO SCH (20:52)
[2021-01-23] MEDS: ATORVASTATIN 40 MG TAB PO SCH (20:52)
[2021-01-24] MEDS: HYDROmorphone INJ 0.5 MG/0.5 ML SYR IV PRN ×3 (02:43→22:41)
[2021-01-24 06:19] LABS: Basophils # (auto) 0.06 K/uL (0-0.2); Basophils % (auto) 0.6 %; Eosinophils % (auto) 6.2 %; Hematocrit (blood only) 24.6 % (42-52); Immature Granulocytes # (auto) 0.23 K/uL (0.00-0.02); Immature Granulocytes % (auto) 2.4 %; Lymphocytes # (auto) 1.35 K/uL (1.2-3.4); Lymphocytes % (auto) 13.8 %; Mean Corpuscular Hemoglobin 29.6 pg (25-34); Mean Corpuscular Hgb Conc 32.5 g/dL (32-36); Mean Corpuscular Volume 91.1 fL (80-100); Mean Platelet Volume 9.3 fL (7.4-10.4); Monocytes # (auto) 0.35 K/uL (0.11-0.59); Monocytes % (auto) 3.6 %; Neutrophils # (auto) 7.16 K/uL (1.4-6.5); Neutrophils % (auto) 73.4 %; Platelet Count 220 K/uL (130-400); RDW Coefficient of Variation 16.2 % (11.5-14.5); RDW Standard Deviation 52.1 fL (36.4-46.3); White Blood Count 9.75 K/uL (4.8-10.8)
[2021-01-24] MEDS: oxyCODONE HCL IR 5 MG TAB (IMMEDIATE RELEASE) PO PRN ×2 (06:30→11:10)
[2021-01-24 07:08] LABS: BUN Creatinine Ratio 5.1 (10-20); Calcium 9.1 mg/dl (8.5-10.1); Creatinine Clr Calc Pharmacy 12.7 ml/min; Est GFR (African American) 7.4 ml/min; Est GFR (Non-African American) 6.4 ml/min; Magnesium 2.4 mg/dl (1.8-2.4); Phosphorus 4.9 mg/dl (2.5-4.9); Potassium 3.7 mmol/L (3.5-5.1)
[2021-01-24] MEDS ORDERED: SODIUM CHLORIDE 0.9% 1000ML 1,000 ML IV PRN (07:24)
[2021-01-24] MEDS ORDERED: EPOETIN ALFA 20,000 UNITS/ML VIAL IV SCH (08:00)
[2021-01-24] MEDS ORDERED: HEPARIN SOD (PORCINE) 1000 UNIT/ML IV ONE (08:00)
[2021-01-24] MEDS: CALCIUM ACETATE 667 MG CAP/TAB PO SCH ×3 (09:18→18:32)
[2021-01-24] MEDS: INSULIN ASPART 100 UNITS/ML 3 ML PEN SC SCH ×4 (09:20→21:15)
[2021-01-24] MEDS: hydrALAZINE TAB 50 MG TAB PO SCH ×2 (10:09→20:40)
[2021-01-24] MEDS: PANTOprazole 40 MG in SYRINGE 0 ML IV SCH ×2 (10:10→20:40)
[2021-01-24] MEDS: METOPROLOL SUCC 50MG EXT REL TAB PO SCH ×2 (10:10→20:41)
--- NOTE | 2021-01-24 10:40 | Hospitalist Progress Note ---
Date of Service January 24, 2021 Assessment & Plan (1) Symptomatic anemia: Plan: This is a 40yo M w/ ESRD on HD MWF, DMII , chronic respiratory failure with hypoxia on 3L NC O2, nonischemic cardiomyopathy, pulmonary sarcoidosis, HTN who presents from home with abnormal lab work. Symptomatic anemia with Possible GI bleed Patient denies any melena or bright red blood per rectum. s/p 1 unit PRBC on 01/18 and 1 U on 01/22 Hgb of 7 on admission; was given 1 U. Hgb for 6.8 on 01/22; was given second U. S/P EGD on 01/22 without any acute findings. Plan for colonoscopy tmrw (01/25) GI consulted - workup for CKD being cause of anemia. Nephrology following - Avoid blood transfusion as patient is a transplant candidate. Will transfuse only when hemoglobin is significantly less than 7 and symptomatic. Monitor daily CBC. ON 01/22 patient received 1 U of PRBC and responded well. Current hgb stable at 8.0 (01/24) Iron, IBC and ferritin is ordered. Chronic respiratory failure with hypoxia - per pt he uses O2 at home at night and as needed - Currently on 2L NC; remains stable - pt appeared euvolemic; hemodialysis today (01/24) Acute decompensated Heart failure with reduced ejection fraction, hx of [employer]IST[employer] Resolved. In setting of renal failure, heart failure Still making some urine, on torsemide 100mg HS CXR with cardiomegaly with evidence of congestive failure Appreciate nephrology input Monitor I&Os, daily weights End stage renal disease on HD HD MWF at [facility] Continue renal diet, phos binders, diuresis Sarcoidosis Follows with Dr. Blackmon as outpatient Recent lung CT from November 2020 looks improved Hypertension: stable Home regimen includes amlodipine HS, hydralazine BID, lisinopril HS and Toprol Monitor BP -blood pressure is controlled Diabetes Type 2 DM - A1c 6.9 in 08/13 Repeat a1c 6.8 Hypoglycemic episode in ER - given diet Glycemic consult placed BSG AC HS Anemia of chronic disease Hgb currently 7.8 (baseline mid 8-9) Receives iron supplementation at HD Monitor with daily CBC DVT Ppx: SCDs given anemia, possible GI bleed Code status: FULL PCP: Dr. Lovelace Dispo: med Beryllium, plan to DC home when medically stable (2) ESRD (end stage renal disease) on dialysis: Admission and Anticipated Discharge Date Admission Date: January 18, 2021 Subjective Patient seen in follow-up of anemia, concern for possible GI bleed, end-stage disease on dialysis EGD done on January 22, unremarkable Hgb stable today at 8.0 Currently patient is on dialysis treatment, denies any chest pain, shortness of breath, abdominal pain, nausea vomiting Uses supplemental O2, per patient chronic - will clarify in chart and with case management on how much oxygen patient is supposed to be using Plan for colonoscopy tomorrow morning Review of Systems Review of Systems: All systems reviewed & are unremarkable except as noted in Subjective Physical Exam Physical Exam: General: A&Ox3, young M in NAD, currently on HD treatment, using suppl. O2 HEENT: NCAT, MMM, EOMI, PERRL Neck: Supple, normal range of motion CVS: normal rate and rhythm Resp: mild b/l crackles, no wheezing Abdomen: Soft, ND/NT, +BS Extremities: Right upper extremity fistula in place Neuro: Alert and oriented answering questions appropriately, no facial asymmetry, speech fluent, moves extremities Skin: warm and dry, no rashes/lesions/erythema, + multiple tattoos MSK: normal ROM, no joint swelling/erythema Results & Data Results & Data ([facility]) Vital Signs (Past 12 Hours) Vital Signs Temp Pulse Pulse Pulse Pulse Resp BP 01/24/21 09:46 74 135/62 01/24/21 09:45 36.8 C 75 77 01/24/21 08:33 36.6 C 72 16 BP Pulse Ox 01/24/21 09:46 01/24/21 09:45 01/24/21 08:33 133/67 93 Laboratory Results 01/24/21 01/24/21 01/24/21 Range/Units 08:18 07:55 05:54 WBC 9.75 (4.8-10.8) K/uL RBC 2.70 L (4.7-6.1) M/uL Hgb 8.0 L (14.0-18.0) g/dL Hct 24.6 L (42-52) % MCV 91.1 (80-100) fL MCH 29.6 (25-34) pg MCHC 32.5 (32-36) g/dL RDW Std Deviation 52.1 H (36.4-46.3) fL RDW Coeff of Selin 16.2 H (11.5-14.5) % Plt Count 220 (130-400) K/uL MPV 9.3 (7.4-10.4) fL Immature Gran % (Auto) 2.4 % Neut % (Auto) 73.4 % Lymph % (Auto) 13.8 % [place] % (Auto) 3.6 % Eos % (Auto) 6.2 % Baso % (Auto) 0.6 % Neut # (Auto) 7.16 H (1.4-6.5) K/uL Lymph # (Auto) 1.35 (1.2-3.4) K/uL [place] # (Auto) 0.35 (0.11-0.59) K/uL Eos # (Auto) 0.60 H (0-0.5) K/uL Baso # (Auto) 0.06 (0-0.2) K/uL Immature Gran # (Auto) 0.23 H (0.00-0.02) K/uL Sodium (136-145) mmol/L Potassium (3.5-5.1) mmol/L Chloride (98-107) mmol/L Carbon Dioxide (21-32) mmol/L Anion Gap (3-11) BUN (7-18) mg/dl Creatinine (0.6-1.4) mg/dl Est Cr Clr Drug Dosing ml/min Est GFR ( Amer) ml/min Est GFR (Non-Af Amer) ml/min BUN/Creatinine Ratio (10-20) Glucose (70-99) mg/dl POC Glucose 73 67 L* (70-99) mg/dl Calcium (8.5-10.1) mg/dl Phosphorus (2.5-4.9) mg/dl Magnesium (1.8-2.4) mg/dl Iron (35-175) mcg/dl TIBC (250-450) mcg/dl Ferritin (8-388) ng/ml 01/24/21 01/23/21 01/23/21 Range/Units 05:54 20:32 20:30 WBC (4.8-10.8) K/uL RBC (4.7-6.1) M/uL Hgb (14.0-18.0) g/dL Hct (42-52) % MCV (80-100) fL MCH (25-34) pg MCHC (32-36) g/dL RDW Std Deviation (36.4-46.3) fL RDW Coeff of Selin (11.5-14.5) % Plt Count (130-400) K/uL MPV (7.4-10.4) fL Immature Gran % (Auto) % Neut % (Auto) % Lymph % (Auto) % [place] % (Auto) % Eos % (Auto) % Baso % (Auto) % Neut # (Auto) (1.4-6.5) K/uL Lymph # (Auto) (1.2-3.4) K/uL [place] # (Auto) (0.11-0.59) K/uL Eos # (Auto) (0-0.5) K/uL Baso # (Auto) (0-0.2) K/uL Immature Gran # (Auto) (0.00-0.02) K/uL Sodium 137 (136-145) mmol/L Potassium 3.7 (3.5-5.1) mmol/L Chloride 104 (98-107) mmol/L Carbon Dioxide 27 (21-32) mmol/L Anion Gap 6.0 (3-11) BUN 47 H (7-18) mg/dl Creatinine 9.35 H* D (0.6-1.4) mg/dl Est Cr Clr Drug Dosing 12.7 ml/min Est GFR ( Amer) 7.4 ml/min Est GFR (Non-Af Amer) 6.4 ml/min BUN/Creatinine Ratio 5.1 L (10-20) Glucose 55 L (70-99) mg/dl POC Glucose 364 H* 380 H* (70-99) mg/dl Calcium 9.1 (8.5-10.1) mg/dl Phosphorus 4.9 (2.5-4.9) mg/dl Magnesium 2.4 (1.8-2.4) mg/dl Iron (35-175) mcg/dl TIBC (250-450) mcg/dl Ferritin (8-388) ng/ml 01/23/21 01/23/21 01/23/21 Range/Units 17:18 12:19 07:38 WBC (4.8-10.8) K/uL RBC (4.7-6.1) M/uL Hgb (14.0-18.0) g/dL Hct (42-52) % MCV (80-100) fL MCH (25-34) pg MCHC (32-36) g/dL RDW Std Deviation (36.4-46.3) fL RDW Coeff of Selin (11.5-14.5) % Plt Count (130-400) K/uL MPV (7.4-10.4) fL Immature Gran % (Auto) % Neut % (Auto) % Lymph % (Auto) % [place] % (Auto) % Eos % (Auto) % Baso % (Auto) % Neut # (Auto) (1.4-6.5) K/uL Lymph # (Auto) (1.2-3.4) K/uL [place] # (Auto) (0.11-0.59) K/uL Eos # (Auto) (0-0.5) K/uL Baso # (Auto) (0-0.2) K/uL Immature Gran # (Auto) (0.00-0.02) K/uL Sodium (136-145) mmol/L Potassium (3.5-5.1) mmol/L Chloride (98-107) mmol/L Carbon Dioxide (21-32) mmol/L Anion Gap (3-11) BUN (7-18) mg/dl Creatinine (0.6-1.4) mg/dl Est Cr Clr Drug Dosing ml/min Est GFR ( Amer) ml/min Est GFR (Non-Af Amer) ml/min BUN/Creatinine Ratio (10-20) Glucose (70-99) mg/dl POC Glucose 160 H 248 H (70-99) mg/dl Calcium (8.5-10.1) mg/dl Phosphorus (2.5-4.9) mg/dl Magnesium (1.8-2.4) mg/dl Iron 39 (35-175) mcg/dl TIBC 183 L (250-450) mcg/dl Ferritin 947.0 H (8-388) ng/ml Medications Administered Current Inpatient Medications Acetaminophen (Acetaminophen 325 Mg Tab) 650 mg PO Q6H PRN PRN Reason: Fever/pain Stop: 02/17/21 19:58 Last Admin: 01/21/21 12:55 Dose: 650 mg Documented by: Albuterol (Albuterol Hfa 8 Gm Inhaler) 2 puffs INH Q6 PRN PRN Reason: Shortness Of Breath Or Wheezin Stop: 02/17/21 16:03 Amlodipine Besylate (Amlodipine Besylate 5 Mg Tab) 10 mg PO HS CHENG Stop: 02/17/21 20:59 Last Admin: 01/23/21 20:52 Dose: 10 mg Documented by: Atorvastatin Calcium (Atorvastatin 40 Mg Tab) 40 mg PO PM CHENG Stop: 02/17/21 20:59 Last Admin: 01/23/21 20:52 Dose: 40 mg Documented by: Calcium Acetate (Calcium Acetate 667 Mg Cap/Tab) 1,334 mg PO AC CHENG Stop: 02/17/21 17:29 Last Admin: 01/24/21 09:18 Dose: 1,334 mg Documented by: Calcium Acetate (Calcium Acetate 667 Mg Cap/Tab) 1,334 mg PO .with snacks PRN PRN Reason: SNACK FOOD Stop: 02/17/21 17:01 Calcium Carbonate (Calcium Carbonate 500 Mg Chewable Tab) 500 mg PO DAILY PRN PRN Reason: gastric upset Stop: 02/17/21 16:03 Dextrose (Dextrose 50% 50 Ml Syringe) 25 - 50 ml IV UD PRN; Protocol PRN Reason: Hypoglycemia Protocol Stop: 02/17/21 16:49 Epoetin Terrell (Epoetin Terrell 20,000 Units/Ml Vial) 20,000 units IV 0800 CHENG Stop: 01/24/21 14:00 Glucagon (Glucagon For Inj 1 Mg Vial) 1 mg SQ UD PRN; Protocol PRN Reason: Hypoglycemia Protocol Stop: 02/17/21 16:49 Glucose (Glucose 10 Tabs/Tube) 4 - 8 tabs PO UD PRN; Protocol PRN Reason: Hypoglycemia Protocol Stop: 02/17/21 16:49 Glucose (Glucose 40% Gel 15 Gm Tube) 15 - 30 gm PO UD PRN; Protocol PRN Reason: Hypoglycemia Protocol Stop: 02/17/21 16:49 Hydralazine HCl (Hydralazine Tab 50 Mg Tab) 50 mg PO BID CHENG Stop: 02/17/21 20:59 Last Admin: 01/24/21 10:09 Dose: Not Given Documented by: Hydromorphone HCl (Hydromorphone Inj 0.5 Mg/0.5 Ml Syr) 0.5 mg IV Q6H PRN PRN Reason: Pain Stop: 02/03/21 23:56 Last Admin: 01/24/21 02:43 Dose: 0.5 mg Documented by: Pantoprazole Sodium 40 mg/ (Syringe) 10 mls @ 5 mls/min IV BID [facility] Stop: 02/18/21 20:59 Last Admin: 01/24/21 10:10 Dose: Not Given Documented by: Sodium Chloride (Nss 1000ml) 1,000 mls @ 0 mls/hr IV .Q0M PRN PRN Reason: For Hemodialysis Use ONLY Stop: 01/24/21 13:23 Insulin Aspart (Insulin Aspart 100 Units/Ml 3 Ml Pen) 0 units SC [facility] Stop: 02/21/21 20:59 Last Admin: 01/24/21 09:20 Dose: 4 units Documented by: Insulin Glargine (Insulin Glargine Solostar 100 Units/Ml 3 Ml Pen) [facility] [place] [facility] [place] Protocol Stop: 02/18/21 08:59 Last Admin: 01/23/21 08:35 Dose: 25 units Documented by: Insulin Glargine (Insulin Glargine Solostar 100 Units/Ml 3 Ml Pen) [address] [facility]; Protocol Stop: 02/19/21 20:59 Last Admin: 01/23/21 20:38 Dose: 15 units Documented by: Lisinopril (Lisinopril 40 Mg Tab) 40 mg PO HS [facility] Stop: 02/17/21 20:59 Last Admin: 01/23/21 20:51 Dose: 40 mg Documented by: Melatonin (Melatonin 3 Mg Tab) 3 mg PO HS PRN PRN Reason: Sleep Stop: 02/19/21 22:02 Last Admin: 01/20/21 22:54 Dose: 3 mg Documented by: Metoprolol Succinate (Metoprolol Succ 50mg Ext Rel Tab) 50 mg PO BID [facility] Stop: 02/17/21 20:59 Last Admin: 01/24/21 10:10 Dose: Not Given Documented by: Miscellaneous (Carbohydrates For Hypoglycemia ) 15 - 30 gm PO UD PRN PRN Reason: Hypoglycemia Protocol Stop: 02/17/21 16:49 Last Admin: 01/24/21 08:01 Dose: 15 gm Documented by: Miscellaneous Information (Pharmacy Glycemic Mgmt Consult) 1 ea N/A UD PRN; Protocol PRN Reason: Consult Stop: 02/17/21 16:59 Oxycodone HCl (Oxycodone Hcl Ir 5 Mg Tab (Immediate Release)) 5 mg PO Q4H PRN PRN Reason: Pain Stop: 02/03/21 23:57 Last Admin: 01/24/21 06:30 Dose: 5 mg Documented by: Polyethylene Glycol (Polyethylene (Miralax) 17 Gm Pack) 17 gm PO DAILY PRN PRN Reason: Constipation Stop: 02/17/21 16:49 Sumatriptan Succinate (Sumatriptan Succinate 50 Mg Tab) 50 mg PO BID PRN PRN Reason: Migraine Headache Stop: 02/18/21 18:31 Last Admin: 01/19/21 21:18 Dose: 50 mg Documented by: Torsemide (Torsemide 100 Mg Tab) 100 mg PO PM CHENG Stop: 02/17/21 20:59 Last Admin: 01/23/21 20:51 Dose: 100 mg Documented by: Trazodone HCl (Trazodone Hcl 50 Mg Tab) 50 mg PO HS CHENG Stop: 02/17/21 20:59 Last Admin: 01/23/21 20:51 Dose: 50 mg Documented by: Vitamin B Complex/Folic Acid (Nephrocaps) 1 cap PO PM CHENG Stop: 02/17/21 20:59 Last Admin: 01/23/21 20:51 Dose: 1 cap Documented by:
--- NOTE | 2021-01-24 11:04 | Communication Note ---
Date of Service: January 24, 2021 GI was asked to arrange inpatient colonoscopy. Can have clear liquids today. Start golytely prep tonight and keep NPO after midnight for colonoscopy in the AM. Please ensure HGB > 8 for examination in the AM. Thank you for allowing us to participate in the care of this patient. Please call with any acute changes, questions or concerns. Please see addendum below with additional recommendation from my supervising physician.
[2021-01-24] MEDS: HEPARIN SOD (PORCINE) 1000 UNIT/ML IV SCH (12:58)
--- NOTE | 2021-01-24 14:29 | Pharmacy Report ---
Pharmacy Glycemic Short Note 2 - Date of Service January 24, 2021 - Glycemic Short BSG Results (Last 24 hours): 01/23/21 01/23/21 01/23/21 17:18 20:30 20:32 Glucose POC Glucose 160 H 380 H* 364 H* 01/24/21 01/24/21 01/24/21 05:54 07:55 08:18 Glucose 55 L POC Glucose 67 L* 73 OUTPATIENT ANTIDIABETIC REGIMEN: * Lantus 56 units SC AM * Novolog 16 units SC TIDM * HbA1c 6.8% on 01/19/21 but patient with ESRD ASSESSMENT: 01/24: * Sean received 81 units of insulin yesterday (40 units basal and 41 units bolus) * BSGs have fluctuated since resuming an oral diet * Fasting hypoglycemia this am. AM Lantus dose was held. Will back off basal insulin by ~20%. * Majority of post prandial BSGs have been elevated despite tightening carb coverage yesterday. Patient receiving HD today, therefore no lunchtime BSG available at this time. Hesitant to make additional changes to novolog without post prandial BSG data. 01/20: * Patient received total 73 units of insulin yesterday; 38 units basal and 35 units bolus. * Fasting BSG today was 179 mg/dl. Continued Lantus dose scale based on BSG this AM. Further added a smaller dose scale for HS. * Post-prandial BSGs are elevated above 200 mg/dl. Tightened Novolog CF with lunch today. 01/19/21: * 40 yo M admitted yesterday secondary to symptomatic anemia. Pharmacy has been consulted for assistance with inpatient glycemic management. Patient is a type 1 diabetic with ESRD on HD MWF managed on basal bolus insulin at home. Most recent HbA1c was 7.0% but was greater than three months ago. Will order an updated HbA1c. * BSG upon arrival to ED yesterday was 52 mg/dL with a recheck of 68 mg/dL. Patient was provided with 16 oz of juice. Unknown if he was symptomatic. Recheck at dinner time was 154 mg/dL. Patient did not have a diet ordered and did not eat so no insulin was provided. * At bedtime, patient's BSG was 125 mg/dL and he received 5 units of Novolog to cover the 26 g of CHO he consumed. Overnight check was 120 mg/dL. * He does report taking 56 units of Lantus yesterday morning prior to admission. His fasting BSG was 388 mg/dL this AM. He is currently NPO for GI evaluation of anemia but it seems that he is refusing any procedures. He is scheduled for HD today. * Received a 30% reduction in home dose of Lantus this AM. Will continue with this for now. * Novolog is being based on previous admission data. May need adjusted if diet ordered and tolerated this afternoon. PLAN FOR INPATIENT GLYCEMIC CONTROL: * Basal insulin * Lantus per scale at dinner * 25 units SQ for BSG less than 160 * 32 units SQ for BSG 160 or more * Bolus insulin: continued * NovoLog per scale ACHS or Q6hrs while NPO * Goal Range: Low 120 mg/dL - High 150 mg/dL * Correction Factor: 20 mg/dL/unit * Nutritional / Prandial insulin per carb ratio of 1 unit per 4 grams CHO consumed * Add overnight check with coverage at 00 PLAN FOR DISCHARGE: * To be determined
[2021-01-24] MEDS ORDERED: INSULIN GLARGINE SOLOSTAR 100 UNITS/ML 3 ML PEN SC SCH (16:30)
[2021-01-24] MEDS ORDERED: LAVAGE SOLUTION 4000ML PO SCH (17:00)
--- NOTE | 2021-01-24 18:28 | Dialysis Progress Note ---
Date of Service January 24, 2021 Assessment & Plan (1) GI bleeding: Plan: Patient with GI bleed. Has been delaying Scope both as outpt and initially refused inpt but now accepts it: unremarkable EGD 01/22; to date no source found for recurrent GI bleed; for colonoscopy tomorrow. Hgb has been chronically low in mostly since 2019, lower than would be expected w/ ESRD anemia. S/p PRBC x1 . Getting procrit with HD. -Avoid/miminize blood transfusion as patient is a transplant candidate. (2) ESRD (end stage renal disease) on dialysis: Plan: has chronic fluid overload. for HD today w/ aggressive UF. Electrolytes are stable. next HD tentatively for 01/26. no VA issues. Admission and Anticipated Discharge Date Admission Date: January 18, 2021 Subjective seen on dialysis today at 1010 approx. c/o ongoing joint pain, today BL hips are worst. breathing baseline; no evidence of gross bleeding Review of Systems Review of Systems: All systems reviewed & are unremarkable except as noted in Subjective Physical Exam Constitutional: well developed and well nourished Eyes: EOM intact bilaterally ENMT: Ears: no external ear abnormality Nose: no external nose abnormality Mouth: + dry oral mucous membranes Neck: no nuchal rigidity Respiratory: normal respiratory effort Auscultation: + diminished lung sounds Cardiovascular: Rate/Rhythm: regular rate and regular rhythm Heart Sounds: normal S1 and normal S2 Extremities: + AV fistula (+t/b); no edema Gastrointestinal (Abdomen): Inspection/Auscultation: normal bowel sounds Percussion/Palpation: abdomen soft; abdomen nontender Musculoskeletal: Extremities: strength 5/5 throughout Skin: no rashes, warm and dry Results & Data ([facility]) Vital Signs (Past 12 Hours) Vital Signs Temp Pulse Pulse Pulse Pulse Resp BP 01/24/21 15:50 36.8 C 80 16 01/24/21 12:40 66 143/70 H 01/24/21 12:20 65 128/70 01/24/21 12:00 70 131/59 L 01/24/21 11:40 71 120/64 01/24/21 11:20 72 149/78 H 01/24/21 11:00 76 142/64 H 01/24/21 10:40 74 115/59 L 01/24/21 10:20 71 138/64 01/24/21 10:00 71 135/75 01/24/21 09:46 74 135/62 01/24/21 09:45 36.8 C 75 77 01/24/21 08:33 36.6 C 72 16 BP Pulse Ox 01/24/21 15:50 177/85 H 99 01/24/21 12:40 01/24/21 12:20 01/24/21 12:00 01/24/21 11:40 01/24/21 11:20 01/24/21 11:00 01/24/21 10:40 01/24/21 10:20 01/24/21 10:00 01/24/21 09:46 01/24/21 09:45 01/24/21 08:33 133/67 93 Laboratory Results 01/24/21 05:54 01/24/21 05:54
[2021-01-24] MEDS: traZODone HCL 50 MG TAB PO SCH (20:40)
[2021-01-24] MEDS: NEPHROCAPS PO SCH (20:41)
[2021-01-24] MEDS: lisinopril 40 MG TAB PO SCH (20:41)
[2021-01-24] MEDS: ATORVASTATIN 40 MG TAB PO SCH (20:42)
[2021-01-24] MEDS: amLODIPine BESYLATE 5 MG TAB PO SCH (20:42)
[2021-01-24] MEDS: TORSEMIDE 100 MG TAB PO SCH (20:42)
[2021-01-24] MEDS ORDERED: Nursing to Pharmacy Communication SCH (22:30)
[2021-01-25] MEDS: INSULIN ASPART 100 UNITS/ML 3 ML PEN SC SCH ×2 (00:38→06:05)
[2021-01-25] MEDS: HYDROmorphone INJ 0.5 MG/0.5 ML SYR IV PRN (04:40)
[2021-01-25 06:27] LABS: Hematocrit (blood only) 25.5 % (42-52); Hemoglobin 8.6 g/dL (14.0-18.0)
[2021-01-25 07:17] LABS: BUN Creatinine Ratio 4.5 (10-20); Calcium 9.3 mg/dl (8.5-10.1); Creatinine Clr Calc Pharmacy 18.8 ml/min; Est GFR (African American) 11.9 ml/min; Est GFR (Non-African American) 10.3 ml/min; Potassium 4.1 mmol/L (3.5-5.1)
[2021-01-25] MEDS ORDERED: INSULIN GLARGINE SOLOSTAR 100 UNITS/ML 3 ML PEN SC ONE (07:30)
[2021-01-25] MEDS: PANTOprazole 40 MG in SYRINGE 0 ML IV SCH (08:19)
[2021-01-25] MEDS: CALCIUM ACETATE 667 MG CAP/TAB PO SCH ×2 (08:24→12:47)
--- NOTE | 2021-01-25 08:47 | Hospitalist Progress Note ---
Date of Service January 25, 2021 Assessment & Plan (1) Symptomatic anemia: Plan: This is a 40yo M w/ ESRD on HD MWF, DMII , chronic respiratory failure with hypoxia on 3L NC O2, nonischemic cardiomyopathy, pulmonary sarcoidosis, HTN who presents from home with abnormal lab work. Symptomatic anemia with Possible GI bleed Patient denies any melena or bright red blood per rectum. s/p 1 unit PRBC on 01/18 and 1 U on 01/22 Hgb of 7 on admission; was given 1 U. Hgb for 6.8 on 01/22; was given second U. S/P EGD on 01/22 without any acute findings. S/ p colonoscopy today (01/25) -poor bowel prep, however lesion/polyp found in the rectum, will need follow-up colonoscopy in 1 to 3 months. GI consulted - workup for CKD being cause of anemia. Nephrology following - Avoid blood transfusion as patient is a transplant can didate. Will transfuse only when hemoglobin is significantly less than 7 and symptomatic. Monitor daily CBC. ON 01/22 patient received 1 U of PRBC and responded well. Current hgb stable at 8.6 (01/25) Iron, IBC and ferritin is ordered. Chronic respiratory failure with hypoxia - per pt he uses O2 at home at night and as needed - Currently on 2L NC; remains stable - pt appeared euvolemic; hemodialysis yesterday (01/24) Acute decompensated Heart failure with reduced ejection fraction, hx of [place] Resolved. In setting of renal failure, heart failure Still making some urine, on torsemide 100mg HS CXR with cardiomegaly with evidence of congestive failure Appreciate nephrology input Monitor I&Os, daily weights End stage renal disease on HD HD MWF at [facility] Continue renal diet, phos binders, diuresis Sarcoidosis Follows with Dr. Blackmon as outpatient Recent lung CT from November 2020 looks improved Hypertension: stable Home regimen includes amlodipine HS, hydralazine BID, lisinopril HS and Toprol Monitor BP -blood pressure is controlled Diabetes Type 2 DM - A1c 6.9 in 08/13 Repeat a1c 6.8 Hypoglycemic episode in ER - given diet Glycemic consult placed BSG AC HS Anemia of chronic disease Hgb currently 7.8 (baseline mid -) Receives iron supplementation at HD Monitor with daily CBC DVT Ppx: SCDs given anemia, possible GI bleed Code status: FULL PCP: Dr. Lovelace Dispo: med tele, plan to [place] home Patient left the hospital today after his colonoscopy, before being seen and discharged. (2) ESRD (end stage renal disease) on dialysis: Admission and Anticipated Discharge Date Admission Date: January 18, 2021 Subjective Patient admitted for anemia, concern for possible GI bleed, end-stage disease on dialysis EGD done on January 22, unremarkable Colonoscopy done today, however poor bowel prep Had HD yesterday Patient left the hospital after colonoscopy before being seen and discharged. Physical Exam Physical Exam: Patient left the hospital before being seen Results & Data Results & Data ([facility]) Vital Signs (Past 12 Hours) Vital Signs Temp Pulse Pulse Resp BP Pulse Ox 01/25/21 08:13 36.6 C 71 16 139/76 91 01/24/21 22:56 36.8 C 81 18 132/71 92 Laboratory Results 01/25/21 01/25/21 01/25/21 Range/Units 07:51 05:56 05:36 Hgb (14.0-18.0) g/dL Hct (42-52) % Sodium 136 (136-145) mmol/L Potassium 4.1 (3.5-5.1) mmol/L Chloride 101 (98-107) mmol/L Carbon Dioxide 26 (21-32) mmol/L Anion Gap 9.0 (3-11) BUN 28 H (7-18) mg/dl Creatinine 6.31 H* D (0.6-1.4) mg/dl Est Cr Clr Drug Dosing 18.8 ml/min Est GFR ( Amer) 11.9 ml/min Est GFR (Non-Af Amer) 10.3 ml/min BUN/Creatinine Ratio 4.5 L (10-20) Glucose 232 H (70-99) mg/dl POC Glucose 221 H 264 H (70-99) mg/dl Calcium 9.3 (8.5-10.1) mg/dl 01/25/21 01/25/21 01/25/21 Range/Units 05:36 04:49 00:32 Hgb 8.6 L (14.0-18.0) g/dL Hct 25.5 L (42-52) % Sodium (136-145) mmol/L Potassium (3.5-5.1) mmol/L Chloride (98-107) mmol/L Carbon Dioxide (21-32) mmol/L Anion Gap (3-11) BUN (7-18) mg/dl Creatinine (0.6-1.4) mg/dl Est Cr Clr Drug Dosing ml/min Est GFR ( Amer) ml/min Est GFR (Non-Af Amer) ml/min BUN/Creatinine Ratio (10-20) Glucose (70-99) mg/dl POC Glucose 205 H 113 H (70-99) mg/dl Calcium (8.5-10.1) mg/dl 01/24/21 01/24/21 01/24/21 Range/Units 21:00 16:54 14:24 Hgb (14.0-18.0) g/dL Hct (42-52) % Sodium (136-145) mmol/L Potassium (3.5-5.1) mmol/L Chloride (98-107) mmol/L Carbon Dioxide (21-32) mmol/L Anion Gap (3-11) BUN (7-18) mg/dl Creatinine (0.6-1.4) mg/dl Est Cr Clr Drug Dosing ml/min Est GFR ( Amer) ml/min Est GFR (Non-Af Amer) ml/min BUN/Creatinine Ratio (10-20) Glucose (70-99) mg/dl POC Glucose 267 H 249 H 141 H (70-99) mg/dl Calcium (8.5-10.1) mg/dl Medications Administered Current Inpatient Medications Acetaminophen (Acetaminophen 325 Mg Tab) 650 mg PO Q6H PRN PRN Reason: Fever/pain Stop: 02/17/21 19:58 Last Admin: 01/21/21 12:55 Dose: 650 mg Documented by: Albuterol (Albuterol Hfa 8 Gm Inhaler) 2 puffs INH Q6 PRN PRN Reason: Shortness Of Breath Or Wheezin Stop: 02/17/21 16:03 Amlodipine Besylate (Amlodipine Besylate 5 Mg Tab) 10 mg PO HS CHENG Stop: 02/17/21 20:59 Last Admin: 01/24/21 20:42 Dose: 10 mg Documented by: Atorvastatin Calcium (Atorvastatin 40 Mg Tab) 40 mg PO PM CHENG Stop: 02/17/21 20:59 Last Admin: 01/24/21 20:42 Dose: 40 mg Documented by: Calcium Acetate (Calcium Acetate 667 Mg Cap/Tab) 1,334 mg PO AC CHENG Stop: 02/17/21 17:29 Last Admin: 01/25/21 12:47 Dose: Not Given Documented by: Calcium Acetate (Calcium Acetate 667 Mg Cap/Tab) 1,334 mg PO .with snacks PRN PRN Reason: SNACK FOOD Stop: 02/17/21 17:01 Calcium Carbonate (Calcium Carbonate 500 Mg Chewable Tab) 500 mg PO DAILY PRN PRN Reason: gastric upset Stop: 02/17/21 16:03 Dextrose (Dextrose 50% 50 Ml Syringe) 25 - 50 ml IV UD PRN; Protocol PRN Reason: Hypoglycemia Protocol Stop: 02/17/21 16:49 Glucagon (Glucagon For Inj 1 Mg Vial) 1 mg SQ UD PRN; Protocol PRN Reason: Hypoglycemia Protocol Stop: 02/17/21 16:49 Glucose (Glucose 10 Tabs/Tube) 4 - 8 tabs PO UD PRN; Protocol PRN Reason: Hypoglycemia Protocol Stop: 02/17/21 16:49 Glucose (Glucose 40% Gel 15 Gm Tube) 15 - 30 gm PO UD PRN; Protocol PRN Reason: Hypoglycemia Protocol Stop: 02/17/21 16:49 Hydralazine HCl (Hydralazine Tab 50 Mg Tab) 50 mg PO BID [facility] Stop: 02/17/21 20:59 Last Admin: 01/25/21 09:05 Dose: Not Given Documented by: Hydromorphone HCl (Hydromorphone Inj 0.5 Mg/0.5 Ml Syr) 0.5 mg IV Q6H PRN PRN Reason: Pain Stop: 02/03/21 23:56 Last Admin: 01/25/21 04:40 Dose: 0.5 mg Documented by: Pantoprazole Sodium 40 mg/ (Syringe) 10 mls @ 5 mls/min IV BID [facility] Stop: 02/18/21 20:59 Last Admin: 01/25/21 08:19 Dose: 5 mls/min Documented by: Insulin Aspart (Insulin Aspart 100 Units/Ml 3 Ml Pen) 0 units SC ACHS [facility] Stop: 02/24/21 00:00 Insulin Glargine (Insulin Glargine Solostar 100 Units/Ml 3 Ml Pen) [facility] [place] Stop: 02/18/21 08:59 Last Admin: 01/23/21 08:35 Dose: 25 units Documented by: Insulin Glargine (Insulin Glargine Solostar 100 Units/Ml 3 Ml Pen) 20 units SC TODAY@1200 CHENG; Protocol Stop: 01/25/21 15:00 Last Admin: 01/25/21 12:19 Dose: 20 units Documented by: Insulin Glargine (Insulin Glargine Solostar 100 Units/Ml 3 Ml Pen) 30 units SC QAM [facility]; Protocol Stop: 02/25/21 08:59 Lisinopril (Lisinopril 40 Mg Tab) 40 mg PO HS CHENG Stop: 02/17/21 20:59 Last Admin: 01/24/21 20:41 Dose: 40 mg Documented by: Melatonin (Melatonin 3 Mg Tab) 3 mg PO HS PRN PRN Reason: Sleep Stop: 02/19/21 22:02 Last Admin: 01/20/21 22:54 Dose: 3 mg Documented by: Metoprolol Succinate (Metoprolol Succ 50mg Ext Rel Tab) 50 mg PO BID CHENG Stop: 02/17/21 20:59 Last Admin: 01/25/21 09:04 Dose: 50 mg Documented by: Miscellaneous (Carbohydrates For Hypoglycemia ) 15 - 30 gm PO UD PRN PRN Reason: Hypoglycemia Protocol Stop: 02/17/21 16:49 Last Admin: 01/24/21 08:01 Dose: 15 gm Documented by: Miscellaneous Information (Pharmacy Glycemic Mgmt Consult) 1 ea N/A UD PRN; Protocol PRN Reason: Consult Stop: 02/17/21 16:59 Oxycodone HCl (Oxycodone Hcl Ir 5 Mg Tab (Immediate Release)) 5 mg PO Q4H PRN PRN Reason: Pain Stop: 02/03/21 23:57 Last Admin: 01/24/21 11:10 Dose: 5 mg Documented by: Polyethylene Glycol (Polyethylene (Miralax) 17 Gm Pack) 17 gm PO DAILY PRN PRN Reason: Constipation Stop: 02/17/21 16:49 Sumatriptan Succinate (Sumatriptan Succinate 50 Mg Tab) 50 mg PO BID PRN PRN Reason: Migraine Headache Stop: 02/18/21 18:31 Last Admin: 01/19/21 21:18 Dose: 50 mg Documented by: Torsemide (Torsemide 100 Mg Tab) 100 mg PO PM CHENG Stop: 02/17/21 20:59 Last Admin: 01/24/21 20:42 Dose: 100 mg Documented by: Trazodone HCl (Trazodone Hcl 50 Mg Tab) 50 mg PO HS CHENG Stop: 02/17/21 20:59 Last Admin: 01/24/21 20:40 Dose: 50 mg Documented by: Vitamin B Complex/Folic Acid (Nephrocaps) 1 cap PO PM CHENG Stop: 02/17/21 20:59 Last Admin: 01/24/21 20:41 Dose: 1 cap Documented by:
[2021-01-25] MEDS: METOPROLOL SUCC 50MG EXT REL TAB PO SCH (09:04)
[2021-01-25] MEDS: hydrALAZINE TAB 50 MG TAB PO SCH (09:05)
--- NOTE | 2021-01-25 09:39 | Anesthesiology Consultation ---
Date of Service January 25, 2021 Assessment & Plan (1) Encounter for pre-operative examination: Chart Review Chart Review: Acceptable Risk for Surgery History Surgery Operation Date: 01/22/21 17:15 Proposed Procedures p Esophagogastroduodenoscopy Dr. Nathalie Zelaya MD Operation Date: 01/25/21 16:45 Proposed Procedures p Colonoscopy Dr. Nathalie Zelaya MD Height/Weight Height: 5 ft 10 in Weight: 100.2 kg Allergies Allergy/AdvReac Type Severity Reaction Status Date / Time No Known Allergies Allergy Unknown Verified 01/25/21 09:33 Medications Home Medications Medication Instructions Recorded Confirmed Last Taken insulin glargine 100 unit/mL (3 56 unit SUBCUT QAM 05/24/19 01/18/21 01/18/21 mL) subcutaneous pen (Lantus Solostar U-100 Insulin) amlodipine 10 mg tablet 10 mg PO HS 06/11/19 01/18/21 01/17/21 calcium acetate(phosphat bind) 667 1,334 mg PO AC 06/11/19 01/18/21 01/18/21 mg tablet lisinopril 40 mg tablet 40 mg PO HS 06/11/19 01/18/21 01/17/21 calcium carbonate 200 mg calcium 200 mg PO DAILY PRN 02/03/20 01/18/21 Unknown (500 mg) chewable tablet (Tums) hydralazine 25 mg tablet 25 mg PO BID 02/03/20 01/18/21 01/18/21 vitamin B complex-vitamin C-folic 1 tab PO PM 02/03/20 01/18/21 01/17/21 acid 0.8 mg tablet (Myrna-Bello) albuterol sulfate 90 mcg/actuation 2 puff INHALATION Q6 PRN 10/13/20 01/18/21 Unknown aerosol inhaler atorvastatin 40 mg tablet 40 mg PO PM 10/13/20 01/18/21 01/17/21 insulin aspart U-100 100 unit/mL 16 unit SUBCUT AC 10/13/20 01/18/21 01/18/21 (3 mL) subcutaneous pen (Novolog 16 units Flexpen U-100 Insulin aspart) lorazepam 1 mg tablet 1 mg PO UD 10/13/20 01/18/21 Unknown metoprolol succinate 50 mg 50 mg PO BID 10/13/20 01/18/21 01/18/21 tablet,extended release 24 hr torsemide 100 mg tablet 100 mg PO PM 10/13/20 01/18/21 01/17/21 aspirin 81 mg tablet 81 mg PO QAM 12/26/20 01/18/21 01/18/21 trazodone 50 mg tablet 50 mg PO HS 12/26/20 01/18/21 01/17/21 ferric citrate 210 mg iron tablet 420 mg PO AC 01/18/21 01/18/21 01/18/21 (Auryxia) Active Medications Generic Name Dose Route Start Last Admin Trade Name Freq PRN Reason Stop Dose Admin Acetaminophen 650 mg 01/18/21 19:59 01/21/21 12:55 Acetaminophen 325 Mg Tab PO 02/17/21 19:58 650 mg Q6H PRN Administration Fever/pain Amlodipine Besylate 10 mg 01/18/21 21:00 01/24/21 20:42 Amlodipine Besylate 5 Mg Tab PO 02/17/21 20:59 10 mg HS CHENG Administration Atorvastatin Calcium 40 mg 01/18/21 21:00 01/24/21 20:42 Atorvastatin 40 Mg Tab PO 02/17/21 20:59 40 mg PM CHENG Administration Calcium Acetate 1,334 mg 01/18/21 17:30 01/25/21 08:24 Calcium Acetate 667 Mg Cap/Tab PO 02/17/21 17:29 Not Given AC CHENG Hydralazine HCl 50 mg 01/18/21 21:00 01/25/21 09:05 Hydralazine Tab 50 Mg Tab PO 02/17/21 20:59 Not Given BID CHENG Hydromorphone HCl 0.5 mg 01/20/21 23:57 01/25/21 04:40 Hydromorphone Inj 0.5 Mg/0.5 Ml Syr IV 02/03/21 23:56 0.5 mg Q6H PRN Administration Pain Pantoprazole Sodium 40 mg/ 10 mls @ 5 mls/min 01/19/21 21:00 01/25/21 08:19 Syringe IV 02/18/21 20:59 5 mls/min BID CHENG Administration Insulin Aspart 0 units 01/25/21 00:00 01/25/21 06:05 Insulin Aspart 100 Units/Ml 3 Ml Pen SC 02/21/21 20:59 7 units Q6 CHENG Administration Insulin Glargine 0 units 01/19/21 09:00 01/23/21 08:35 Insulin Glargine Solostar 100 Units/Ml 3 Ml Pen SC 02/18/21 08:59 25 units QAM CHENG Administration Protocol Lisinopril 40 mg 01/18/21 21:00 01/24/21 20:41 Lisinopril 40 Mg Tab PO 02/17/21 20:59 40 mg HS CHENG Administration Melatonin 3 mg 01/20/21 22:03 01/20/21 22:54 Melatonin 3 Mg Tab PO 02/19/21 22:02 3 mg HS PRN Administration Sleep Metoprolol Succinate 50 mg 01/18/21 21:00 01/25/21 09:04 Metoprolol Succ 50mg Ext Rel Tab PO 02/17/21 20:59 50 mg BID CHENG Administration Miscellaneous 15 - 30 gm 01/18/21 16:50 01/24/21 08:01 Carbohydrates For Hypoglycemia PO 02/17/21 16:49 15 gm UD PRN Administration Hypoglycemia Protocol Oxycodone HCl 5 mg 01/20/21 23:58 01/24/21 11:10 Oxycodone Hcl Ir 5 Mg Tab (Immediate Release) PO 02/03/21 23:57 5 mg Q4H PRN Administration Pain Sumatriptan Succinate 50 mg 01/19/21 18:32 01/19/21 21:18 Sumatriptan Succinate 50 Mg Tab PO 02/18/21 18:31 50 mg BID PRN Administration Migraine Headache Torsemide 100 mg 01/18/21 21:00 01/24/21 20:42 Torsemide 100 Mg Tab PO 02/17/21 20:59 100 mg PM CHENG Administration Trazodone HCl 50 mg 01/18/21 21:00 01/24/21 20:40 Trazodone Hcl 50 Mg Tab PO 02/17/21 20:59 50 mg HS CHENG Administration Vitamin B Complex/Folic Acid 1 cap 01/18/21 21:00 01/24/21 20:41 Nephrocaps PO 02/17/21 20:59 1 cap PM CHENG Administration NPO Date Last Intake of Fluids: 01/24/21 Time Last Intake of Fluids: 23:59 Last Intake of Fluids Comment: with meds Date Last Intake of Solids: 01/24/21 Time Last Intake of Solids: 23:59 Last Intake of Solids Comment: dinner Past Medical History Medical History (Updated 01/25/21 @ 09:39 by Pavel Nogueira MD) A-V fistula right Abnormal CT scan of lung Anemia Chronic respiratory failure with hypoxia COPD (chronic obstructive pulmonary disease) Diabetes IDDM (Type 1 per records) Dyslipidemia End stage renal disease diaylsis - M,W,F ([facility], [place]) Heart failure with reduced ejection fraction Hypertension Obesity Sarcoidosis per records Seizure disorder remote hx (2007) in setting of hypoglycemia (?ETOH related per records), no issues since Past Family History Family History Father Hypertension Past Surgical History Surgical History History of vascular access device permacath insertion Hx of biopsy kidney bx PONV (postoperative nausea and vomiting) Status post creation of arteriovenous fistula right: 07/15/17: MAC sedation at [facility] Social History Smoking Status: Former smoker tobacco type: smokeless tobacco Do You Dip or Chew Tobacco: Yes Hx Alcohol Use: Yes Alcohol Intake Frequency Comment: Has not drank for 3 years Hx Substance Use: No substance use type: does not use Physical Exam Vital Signs Last Vital Signs Temp 36.6 C 01/25/21 08:13 Pulse 71 01/25/21 08:13 Resp 16 01/25/21 08:13 BP 139/76 01/25/21 08:13 Pulse Ox 91 01/25/21 08:13 Testing Laboratory Results 01/25/21 05:36 01/25/21 05:36 PT 9.3 Seconds (9.0-12.0) 01/18/21 12:34 INR 0.9 (0.9-1.1) 01/18/21 12:34 Hemoglobin A1c 6.8 % (4.5-5.6) H 01/19/21 09:26 Urine Color Yellow 01/19/21 Unknown Urine Appearance Clear (Clear) 01/19/21 Unknown Urine pH 7.5 (4.5-7.5) 01/19/21 Unknown Ur Specific Bailey 1.012 (1.000-1.030) 01/19/21 Unknown Urine Protein 3+ (Negative) H 01/19/21 Unknown Urine Glucose (UA) 1+ (Negative) H 01/19/21 Unknown Urine Ketones Negative (Negative) 01/19/21 Unknown Urine Nitrite Negative (Negative) 01/19/21 Unknown Ur Leukocyte Esterase Negative (Negative) 01/19/21 Unknown Urine WBC (Auto) 1-5 /hpf (0-5) 01/19/21 Unknown Urine RBC (Auto) 10-30 /hpf (0-4) H 01/19/21 Unknown U Hyaline Cast (Auto) 1-5 /lpf (0-5) 01/19/21 Unknown U Epithel Cells (Auto) 0-5 /lpf (0-5) 01/19/21 Unknown Urine Bacteria (Auto) Negative (Negative) 01/19/21 Unknown Blood Type O Positive 01/22/21 09:42 Antibody Screen NEGATIVE 01/22/21 09:42 01/25/21 01/25/21 01/25/21 07:51 05:56 04:49 POC Glucose 221 H 264 H 205 H 01/25/21 00:32 POC Glucose 113 H
--- NOTE | 2021-01-25 09:47 | Anesthesiology Consultation ---
Date of Service January 25, 2021 Assessment & Plan (1) Encounter for pre-operative examination: Chart Review Chart Review: Acceptable Risk for Surgery History Surgery Operation Date: 01/22/21 17:15 Proposed Procedures p Esophagogastroduodenoscopy Dr. Nathalie Zelaya MD Operation Date: 01/25/21 16:45 Proposed Procedures p Colonoscopy Dr. Nathalie Zelaya MD Height/Weight Height: 5 ft 10 in Weight: 100.2 kg Allergies Allergy/AdvReac Type Severity Reaction Status Date / Time No Known Allergies Allergy Unknown Verified 01/25/21 09:33 Medications Home Medications Medication Instructions Recorded Confirmed Last Taken insulin glargine 100 unit/mL (3 56 unit SUBCUT QAM 05/24/19 01/18/21 01/18/21 mL) subcutaneous pen (Lantus Solostar U-100 Insulin) amlodipine 10 mg tablet 10 mg PO HS 06/11/19 01/18/21 01/17/21 calcium acetate(phosphat bind) 667 1,334 mg PO AC 06/11/19 01/18/21 01/18/21 mg tablet lisinopril 40 mg tablet 40 mg PO HS 06/11/19 01/18/21 01/17/21 calcium carbonate 200 mg calcium 200 mg PO DAILY PRN 02/03/20 01/18/21 Unknown (500 mg) chewable tablet (Tums) hydralazine 25 mg tablet 25 mg PO BID 02/03/20 01/18/21 01/18/21 vitamin B complex-vitamin C-folic 1 tab PO PM 02/03/20 01/18/21 01/17/21 acid 0.8 mg tablet (Myrna-Bello) albuterol sulfate 90 mcg/actuation 2 puff INHALATION Q6 PRN 10/13/20 01/18/21 Unknown aerosol inhaler atorvastatin 40 mg tablet 40 mg PO PM 10/13/20 01/18/21 01/17/21 insulin aspart U-100 100 unit/mL 16 unit SUBCUT AC 10/13/20 01/18/21 01/18/21 (3 mL) subcutaneous pen (Novolog 16 units Flexpen U-100 Insulin aspart) lorazepam 1 mg tablet 1 mg PO UD 10/13/20 01/18/21 Unknown metoprolol succinate 50 mg 50 mg PO BID 10/13/20 01/18/21 01/18/21 tablet,extended release 24 hr torsemide 100 mg tablet 100 mg PO PM 10/13/20 01/18/21 01/17/21 aspirin 81 mg tablet 81 mg PO QAM 12/26/20 01/18/21 01/18/21 trazodone 50 mg tablet 50 mg PO HS 12/26/20 01/18/21 01/17/21 ferric citrate 210 mg iron tablet 420 mg PO AC 01/18/21 01/18/21 01/18/21 (Auryxia) Active Medications Generic Name Dose Route Start Last Admin Trade Name Freq PRN Reason Stop Dose Admin Acetaminophen 650 mg 01/18/21 19:59 01/21/21 12:55 Acetaminophen 325 Mg Tab PO 02/17/21 19:58 650 mg Q6H PRN Administration Fever/pain Amlodipine Besylate 10 mg 01/18/21 21:00 01/24/21 20:42 Amlodipine Besylate 5 Mg Tab PO 02/17/21 20:59 10 mg HS CHENG Administration Atorvastatin Calcium 40 mg 01/18/21 21:00 01/24/21 20:42 Atorvastatin 40 Mg Tab PO 02/17/21 20:59 40 mg PM CHENG Administration Calcium Acetate 1,334 mg 01/18/21 17:30 01/25/21 08:24 Calcium Acetate 667 Mg Cap/Tab PO 02/17/21 17:29 Not Given AC CHENG Hydralazine HCl 50 mg 01/18/21 21:00 01/25/21 09:05 Hydralazine Tab 50 Mg Tab PO 02/17/21 20:59 Not Given BID CHENG Hydromorphone HCl 0.5 mg 01/20/21 23:57 01/25/21 04:40 Hydromorphone Inj 0.5 Mg/0.5 Ml Syr IV 02/03/21 23:56 0.5 mg Q6H PRN Administration Pain Pantoprazole Sodium 40 mg/ 10 mls @ 5 mls/min 01/19/21 21:00 01/25/21 08:19 Syringe IV 02/18/21 20:59 5 mls/min BID CHENG Administration Insulin Aspart 0 units 01/25/21 00:00 01/25/21 06:05 Insulin Aspart 100 Units/Ml 3 Ml Pen SC 02/21/21 20:59 7 units Q6 CHENG Administration Insulin Glargine 0 units 01/19/21 09:00 01/23/21 08:35 Insulin Glargine Solostar 100 Units/Ml 3 Ml Pen SC 02/18/21 08:59 25 units QAM CHENG Administration Protocol Lisinopril 40 mg 01/18/21 21:00 01/24/21 20:41 Lisinopril 40 Mg Tab PO 02/17/21 20:59 40 mg HS CHENG Administration Melatonin 3 mg 01/20/21 22:03 01/20/21 22:54 Melatonin 3 Mg Tab PO 02/19/21 22:02 3 mg HS PRN Administration Sleep Metoprolol Succinate 50 mg 01/18/21 21:00 01/25/21 09:04 Metoprolol Succ 50mg Ext Rel Tab PO 02/17/21 20:59 50 mg BID CHENG Administration Miscellaneous 15 - 30 gm 01/18/21 16:50 01/24/21 08:01 Carbohydrates For Hypoglycemia PO 02/17/21 16:49 15 gm UD PRN Administration Hypoglycemia Protocol Oxycodone HCl 5 mg 01/20/21 23:58 01/24/21 11:10 Oxycodone Hcl Ir 5 Mg Tab (Immediate Release) PO 02/03/21 23:57 5 mg Q4H PRN Administration Pain Sumatriptan Succinate 50 mg 01/19/21 18:32 01/19/21 21:18 Sumatriptan Succinate 50 Mg Tab PO 02/18/21 18:31 50 mg BID PRN Administration Migraine Headache Torsemide 100 mg 01/18/21 21:00 01/24/21 20:42 Torsemide 100 Mg Tab PO 02/17/21 20:59 100 mg PM CHENG Administration Trazodone HCl 50 mg 01/18/21 21:00 01/24/21 20:40 Trazodone Hcl 50 Mg Tab PO 02/17/21 20:59 50 mg HS CHENG Administration Vitamin B Complex/Folic Acid 1 cap 01/18/21 21:00 01/24/21 20:41 Nephrocaps PO 02/17/21 20:59 1 cap PM CHENG Administration NPO Date Last Intake of Fluids: 01/24/21 Time Last Intake of Fluids: 23:59 Last Intake of Fluids Comment: with meds Date Last Intake of Solids: 01/24/21 Time Last Intake of Solids: 23:59 Last Intake of Solids Comment: dinner Past Medical History Medical History A-V fistula right Abnormal CT scan of lung Anemia Chronic respiratory failure with hypoxia COPD (chronic obstructive pulmonary disease) Diabetes IDDM (Type 1 per records) Dyslipidemia End stage renal disease diaylsis - M,W,F ([facility], [place]) Heart failure with reduced ejection fraction Hypertension Obesity Sarcoidosis per records Seizure disorder remote hx (2007) in setting of hypoglycemia (?ETOH related per records), no issues since Past Family History Family History Father Hypertension Past Surgical History Surgical History History of vascular access device permacath insertion Hx of biopsy kidney bx PONV (postoperative nausea and vomiting) Status post creation of arteriovenous fistula right: 07/15/17: MAC sedation at [facility] Social History Smoking Status: Former smoker tobacco type: smokeless tobacco Do You Dip or Chew Tobacco: Yes Hx Alcohol Use: Yes Alcohol Intake Frequency Comment: Has not drank for 3 years Hx Substance Use: No substance use type: does not use Physical Exam Vital Signs Last Vital Signs Temp 36.8 C 01/25/21 09:39 Pulse 71 01/25/21 09:39 Resp 16 01/25/21 09:39 BP 160/86 H 01/25/21 09:39 Pulse Ox 95 01/25/21 09:39 Testing Laboratory Results 01/25/21 05:36 01/25/21 05:36 PT 9.3 Seconds (9.0-12.0) 01/18/21 12:34 INR 0.9 (0.9-1.1) 01/18/21 12:34 Hemoglobin A1c 6.8 % (4.5-5.6) H 01/19/21 09:26 Urine Color Yellow 01/19/21 Unknown Urine Appearance Clear (Clear) 01/19/21 Unknown Urine pH 7.5 (4.5-7.5) 01/19/21 Unknown Ur Specific [place] 1.012 (1.000-1.030) 01/19/21 Unknown Urine Protein 3+ (Negative) H 01/19/21 Unknown Urine Glucose (UA) 1+ (Negative) H 01/19/21 Unknown Urine Ketones Negative (Negative) 01/19/21 Unknown Urine Nitrite Negative (Negative) 01/19/21 Unknown Ur Leukocyte Esterase Negative (Negative) 01/19/21 Unknown Urine WBC (Auto) 1-5 /hpf (0-5) 01/19/21 Unknown Urine RBC (Auto) 10-30 /hpf (0-4) H 01/19/21 Unknown U Hyaline Cast (Auto) 1-5 /lpf (0-5) 01/19/21 Unknown U Epithel Cells (Auto) 0-5 /lpf (0-5) 01/19/21 Unknown Urine Bacteria (Auto) Negative (Negative) 01/19/21 Unknown Blood Type O Positive 01/22/21 09:42 Antibody Screen NEGATIVE 01/22/21 09:42 01/25/21 01/25/21 01/25/21 07:51 05:56 04:49 POC Glucose 221 H 264 H 205 H 01/25/21 00:32 POC Glucose 113 H
--- NOTE | 2021-01-25 09:56 | Pharmacy Report ---
Pharmacy Glycemic Short Note 2 - Date of Service January 25, 2021 - Glycemic Short BSG Results (Last 24 hours): 01/24/21 01/24/21 01/24/21 14:24 16:54 21:00 Glucose POC Glucose 141 H 249 H 267 H 01/25/21 01/25/21 01/25/21 00:32 04:49 05:36 Glucose 232 H POC Glucose 113 H 205 H 01/25/21 01/25/21 05:56 07:51 Glucose POC Glucose 264 H 221 H OUTPATIENT ANTIDIABETIC REGIMEN: * Lantus 56 units SC AM * Novolog 16 units SC TIDM * HbA1c 6.8% on 01/19/21 but patient with ESRD ASSESSMENT: 01/25: * Pt has received 51 units of insulin over the past 24hrs * 10 units of basal with Lantus * 41 units of bolus with NovoLog * This is a significant decrease in TDD of insulin as compared to previous days. Pt with HYPOglycemia yesterday morning and therefore patient refused dose decrease in Lantus per [facility] - pt only wanted to take 10 units of Lantus * Pt now with rebound HYPERGLYCEMIA today secondary to basal insulin deficiency. Pt is NPO for colonoscopy today. Will give reduced dose for NPO prior to procedure and the remainder of dose after procedure. 01/24: * Sean received 81 units of insulin yesterday (40 units basal and 41 units bolus) * BSGs have fluctuated since resuming an oral diet * Fasting hypoglycemia this am. AM Lantus dose was held. Will back off basal insulin by ~20%. * Majority of post prandial BSGs have been elevated despite tightening carb coverage yesterday. Patient receiving HD today, therefore no lunchtime BSG available at this time. Hesitant to make additional changes to novolog without post prandial BSG data. 01/20: * Patient received total 73 units of insulin yesterday; 38 units basal and 35 units bolus. * Fasting BSG today was 179 mg/dl. Continued Lantus dose scale based on BSG this AM. Further added a smaller dose scale for HS. * Post-prandial BSGs are elevated above 200 mg/dl. Tightened Novolog CF with lunch today. 01/19/21: * 40 yo M admitted yesterday secondary to symptomatic anemia. Pharmacy has been consulted for assistance with inpatient glycemic management. Patient is a type 1 diabetic with ESRD on HD MWF managed on basal bolus insulin at home. Most recent HbA1c was 7.0% but was greater than three months ago. Will order an updated HbA1c. * BSG upon arrival to ED yesterday was 52 mg/dL with a recheck of 68 mg/dL. Patient was provided with 16 oz of juice. Unknown if he was symptomatic. Recheck at dinner time was 154 mg/dL. Patient did not have a diet ordered and did not eat so no insulin was provided. * At bedtime, patient's BSG was 125 mg/dL and he received 5 units of Novolog to cover the 26 g of CHO he consumed. Overnight check was 120 mg/dL. * He does report taking 56 units of Lantus yesterday morning prior to admission. His fasting BSG was 388 mg/dL this AM. He is currently NPO for GI evaluation of anemia but it seems that he is refusing any procedures. He is scheduled for HD today. * Received a 30% reduction in home dose of Lantus this AM. Will continue with this for now. * Novolog is being based on previous admission data. May need adjusted if diet ordered and tolerated this afternoon. PLAN FOR INPATIENT GLYCEMIC CONTROL: * Basal insulin * Lantus 10 units SQ x 1 dose this AM while NPO * Lantus 20 units SQ x 1 dose after colonoscopy. * Lantus 30 units SQ daily starting 9/3 AM * Bolus insulin: continued * NovoLog per scale ACHS or Q6hrs while NPO * Goal Range: Low 120 mg/dL - High 150 mg/dL * Correction Factor: 20 mg/dL/unit * Nutritional / Prandial insulin per carb ratio of 1 unit per 4 grams CHO consumed * Add overnight check with coverage at 00 PLAN FOR DISCHARGE: * To be determined
--- NOTE | 2021-01-25 10:07 | History & Physical Report ---
Date of Service January 25, 2021 Assessment & Plan Admission and Anticipated Discharge Date Admission Date: January 18, 2021 History of Present Illness Chief Complaint: Anemia Primary Care Provider: Jaime Lovelace MD 40 yo male with a history of ckdz, anemia, with reports of on and off marroon stool. Refused colonoscopy- now agreed. Reports he drank the full prep yesterday. No reports of bleeding currently. No reported blood thinners. Allergies Allergy/AdvReac Type Severity Reaction Status Date / Time No Known Allergies Allergy Unknown Verified 01/25/21 09:33 Home Medications Medication Instructions Recorded Confirmed Type insulin glargine 100 unit/mL (3 56 unit SUBCUT QAM 05/24/19 01/18/21 History mL) subcutaneous pen (Lantus Solostar U-100 Insulin) amlodipine 10 mg tablet 10 mg PO HS 06/11/19 01/18/21 History calcium acetate(phosphat bind) 667 1,334 mg PO AC 06/11/19 01/18/21 History mg tablet lisinopril 40 mg tablet 40 mg PO HS 06/11/19 01/18/21 History calcium carbonate 200 mg calcium 200 mg PO DAILY PRN 02/03/20 01/18/21 History (500 mg) chewable tablet (Tums) hydralazine 25 mg tablet 25 mg PO BID 02/03/20 01/18/21 History vitamin B complex-vitamin C-folic 1 tab PO PM 02/03/20 01/18/21 History acid 0.8 mg tablet (Myrna-Bello) albuterol sulfate 90 mcg/actuation 2 puff INHALATION Q6 PRN 10/13/20 01/18/21 History aerosol inhaler atorvastatin 40 mg tablet 40 mg PO PM 10/13/20 01/18/21 History insulin aspart U-100 100 unit/mL 16 unit SUBCUT AC 10/13/20 01/18/21 History (3 mL) subcutaneous pen (Novolog Flexpen U-100 Insulin aspart) lorazepam 1 mg tablet 1 mg PO UD 10/13/20 01/18/21 History metoprolol succinate 50 mg 50 mg PO BID 10/13/20 01/18/21 History tablet,extended release 24 hr torsemide 100 mg tablet 100 mg PO PM 10/13/20 01/18/21 History aspirin 81 mg tablet 81 mg PO QAM 12/26/20 01/18/21 History trazodone 50 mg tablet 50 mg PO HS 12/26/20 01/18/21 History ferric citrate 210 mg iron tablet 420 mg PO AC 01/18/21 01/18/21 History (Auryxia) Past Med/Surg History Medical History A-V fistula right Abnormal CT scan of lung Anemia Chronic respiratory failure with hypoxia COPD (chronic obstructive pulmonary disease) Diabetes IDDM (Type 1 per records) Dyslipidemia End stage renal disease diaylsis - M,W,F ([facility]) Heart failure with reduced ejection fraction Hypertension Obesity Sarcoidosis per records Seizure disorder remote hx (2007) in setting of hypoglycemia (?ETOH related per records), no issues since Surgical History History of vascular access device permacath insertion Hx of biopsy kidney bx PONV (postoperative nausea and vomiting) Status post creation of arteriovenous fistula right: 07/15/17: MAC sedation at [facility] Family History Father Hypertension Social History Smoking Status: Former smoker Years Smoked: 2; Second Hand Exposure: No; Do You Dip or Chew Tobacco: Yes; Tobacco Cessation Education Requested by Patient: No Hx Alcohol Use: Yes Hx Substance Use: No Preferred Language: Botswanan Communication Ability: Effective Grade Foreman Required: No Beliefs That Will Affect Care: None Current Living Situation: Other Current Living Situation Comment: Roommate Other Information That Helps Us Care for You: No Feels Safe at Home: Yes Safety Concerns: Feels Safe At This Time Assistive Devices: None Review of Systems All systems reviewed & are unremarkable except as noted in Subjective Physical Exam Physical Exam: Male in no acute distress Respiratory: normal respiratory effort, lungs clear to auscultation Gastrointestinal (Abdomen): Distended but soft nt Results & Data ([facility]) Vital Signs (Past 12 Hours) Vital Signs Temp Pulse Pulse Resp BP Pulse Ox 01/25/21 09:39 36.8 C 71 16 160/86 H 95 01/25/21 08:13 36.6 C 71 16 139/76 91 01/24/21 22:56 36.8 C 81 18 132/71 92 Laboratory Results Chronic anemia Code Status & VTE Plan VTE Prophylaxis Plan VTE Prophylaxis will be ordered: Yes Supervising Physician Co-Signing Physician Notes Colonoscopy for evaluation of reported maroon stool and anemia.
--- NOTE | 2021-01-25 10:50 | GI REPORT ---
Patient Name: Sean Justice Procedure Date: 01/25/2021 10:13 AM Date of : 1980 Admit Type: Inpatient Age: 40 Gender: Male Attending MD: Clemencia Zelaya M.d. Procedure: Colonoscopy Providers: Clemencia Zelaya M.d. Referring MD: Jaime Lovelace Indications: Anemia Medicines: Propofol per Anesthesia, See anesthesia record Complications: No immediate complications. Estimated Blood Loss: Estimated blood loss: none. Procedure: Pre-Anesthesia Assessment: - Patient identification and proposed procedure were verified prior to the procedure by the physician, the nurse and the anesthesiologist. The procedure was verified in the pre-procedure area. - Prior to the procedure, a History and Physical was performed, and patient medications, allergies and sensitivities were reviewed. The patient's tolerance of previous anesthesia was reviewed. - The risks and benefits of the procedure and the sedation options and risks were discussed with the patient. All questions were answered and informed consent was obtained. After I obtained informed consent, the scope was passed under direct vision. Throughout the procedure, the patient's blood pressure, pulse, and oxygen saturations were monitored continuously. The scope was introduced through the anus and advanced to the cecum, identified by appendiceal orifice and ileocecal valve. The colonoscopy was performed without difficulty. The patient tolerated the procedure well. The quality of the bowel preparation was inadequate. Findings: The examined colon appeared normal. One 30 mm polyp was found in the rectum. The exam was otherwise without abnormality on direct and retroflexion views. Impression: - Preparation of the colon was inadequate - solid stool was present throughout the colon. - The examined colon appeared normal. - Polyp in the rectum. - The examination was otherwise normal on direct and retroflexion views. Recommendation: - Repeat colonoscopy within 1-3 months for potential EMR. Warren Wilkinson M.d. 01/25/2021 10:49:46 AM This report has been signed electronically. Note Initiated On: 01/25/2021 10:13 AM Number of Addenda: 0 I attest to the content of the Intraoperative Record and orders documented therein, exceptions below {[id number]}
--- NOTE | 2021-01-25 10:50 | Communication Note ---
Date of Service: January 25, 2021 Colonoscopy completed - poor prep Lesion noted in the rectum thought to be a polyp that will need EMR'd at a later date. Resume diet, office will contact him to schedule repeat colonoscopy likely with a different prep.
--- NOTE | 2021-01-25 11:08 | Anesthesiology Progress Note ---
Date of Service January 25, 2021 Anesthesia Post Procedure Vital Signs Vital Signs: Temp Pulse Pulse Pulse Pulse Resp BP 01/25/21 11:04 71 18 01/25/21 10:49 78 18 01/25/21 09:39 36.8 C 71 16 01/25/21 08:13 36.6 C 71 16 01/24/21 22:56 36.8 C 81 18 01/24/21 20:39 82 01/24/21 15:50 36.8 C 80 16 01/24/21 14:05 36.9 C 74 01/24/21 13:20 68 122/55 L 01/24/21 13:00 68 124/69 01/24/21 12:40 66 143/70 H 01/24/21 12:20 65 128/70 01/24/21 12:00 70 131/59 L 01/24/21 11:40 71 120/64 01/24/21 11:20 72 149/78 H BP Pulse Ox 01/25/21 11:04 141/59 H 95 01/25/21 10:49 141/75 H 92 01/25/21 09:39 160/86 H 95 01/25/21 08:13 139/76 91 01/24/21 22:56 132/71 92 01/24/21 20:39 182/75 H 90 01/24/21 15:50 177/85 H 99 01/24/21 14:05 126/66 01/24/21 13:20 01/24/21 13:00 01/24/21 12:40 01/24/21 12:20 01/24/21 12:00 01/24/21 11:40 01/24/21 11:20 Pain Intensity Head: Pain Intensity: 8 Transfer of Care Handoff Completed per policy Notes Mental Status: alert / awake / arousable Patient Amnestic to Procedure: Yes Nausea / Vomiting: adequately controlled Pain: adequately controlled Airway Patency, RR, SpO2: stable & adequate BP & HR: stable & adequate Hydration State: stable & adequate Anesthetic Complications: no major complications apparent
[2021-01-25] MEDS ORDERED: Nursing to Pharmacy Communication SCH (12:00)
[2021-01-25] MEDS ORDERED: INSULIN GLARGINE SOLOSTAR 100 UNITS/ML 3 ML PEN SC SCH (12:00)
[2021-01-25] MEDS ORDERED: INSULIN ASPART 100 UNITS/ML 3 ML PEN SC ONE (12:30)
--- NOTE | 2021-01-25 13:20 | Discharge Summary ---
Date of Service January 25, 2021 Admission HPI Per Admitting Provider This is a 40yo M with a PMH of ESRD on HD MWF, type 2 diabetes, chronic respiratory failure with hypoxia on 3L NC O2, nonischemic cardiomyopathy, pulmonary sarcoidosis, hypertension and other medical problems listed below who presents from home with abnormal labwork. Outpatient labs from earlier this week showed hgb of 7. Reports dark stools for past few months in setting of receiving mircera and iron. Was directed to come to ER for further evaluation. Reports one large episode of bright red blood in toilet a few days ago with clots present. Had not previously been agreeable to colonoscopy but is now willing. OP c-scope scheduled but not yet performed. Patient feeling more SOB recently when lying down. Is on 3L NC O2 at baseline now. Takes torsemide 100mg every evening and makes a small amount of urine. Does not use salt on foods but admits to eating a lot of processed and packaged foods, like hot dogs. Denies any fever, chills, lightheadedness, headache, chest pain, wheezing, nausea, vomiting, abdominal pain, dysuria or constipation. Reports loose stools lately. Feels that he is more fluid in his abdomen than usual. Admission Exam Per Admitting Provider General Appearance: WD/WN, vitals as above, NAD, sitting up in bed, pleasant, conversing easily Head: normocephalic, atraumatic Eyes: normal inspection, PERRL, conjunctivae normal, anicteric sclerae ENT: external ear and nose normal, oropharynx normal Neck: normal visual inspection, trachea midline, no thyromegaly Respiratory: normal respiratory effort, diminished, coarse breath sounds at bases, no wheeze, rales or rhonchi. No accessory muscle use Cardiovascular: regular rate, rhythm, no murmur, normal peripheral pulses, no BLE edema. Vessels: no JVD Chest: normal inspection of chest Abdomen/GI: normal bowel sounds, soft but distended with fluid, nontender, no hepatosplenomegaly Extremities/Musculoskeletal: +R arm AV fistula. No cyanosis or clubbing, extremities motor strength 5/5 Neurologic: PERRL, EOMI, accommodation nl, no face palsy, no dysarthria, CN's II-XI intact bilaterally and moves all extremities Psychiatric: A+Ox3, euthymic affect Skin: no rashes, normal color, warm/dry Principal Diagnosis Anemia, concern for GI bleed Lesion likely olyp in the rectum End-stage renal disease on dialysis Pt left AMA before being seen and discharged Discharge Exam Patient not seen today as he left the hospital without being seen and discharged Discharge Data Allergies Allergy/AdvReac Type Severity Reaction Status Date / Time No Known Allergies Allergy Unknown Verified 01/25/21 09:33 Consultations 01/18/21 14:17 Consult Nephrology Routine 01/18/21 15:08 ED Decision to Admit Stat 01/18/21 16:08 Consult Gastroenterology Routine Procedures Performed Operation Date: 01/22/21 17:15 Actual Procedures p Esophagogastroduodenoscopy - Clemencia Zelaya MD Operation Date: 01/25/21 16:45 Actual Procedures p Colonoscopy - Clemencia Zelaya MD Ordered Studies 01/19/21 01:39 CT head/brain wo con Urgent Hospital Course (1) Symptomatic anemia: This is a 40yo M w/ ESRD on HD MWF, DMII , chronic respiratory failure with hypoxia on 3L NC O2, nonischemic cardiomyopathy, pulmonary sarcoidosis, HTN who presents from home with abnormal lab work. Symptomatic anemia with Possible GI bleed Patient denies any melena or bright red blood per rectum. s/p 1 unit PRBC on 01/18 and 1 U on 01/22 Hgb of 7 on admission; was given 1 U. Hgb for 6.8 on 01/22; was given second U. S/P EGD on 01/22 without any acute findings. S/ p colonoscopy today (01/25) -poor bowel prep, however lesion/polyp found in the rectum, will need follow-up colonoscopy in 1 to 3 months. GI consulted - workup for CKD being cause of anemia. Nephrology following - Avoid blood transfusion as patient is a transplant candidate. Will transfuse only when hemoglobin is significantly less than 7 and symptomatic. Monitor daily CBC. ON 01/22 patient received 1 U of PRBC and responded well. Current hgb stable at 8.6 (01/25) Iron, IBC and ferritin is ordered. Chronic respiratory failure with hypoxia - per pt he uses O2 at home at night and as needed - Currently on 2L NC; remains stable - pt appeared euvolemic; hemodialysis yesterday (01/24) Acute decompensated Heart failure with reduced ejection fraction, hx of SCALE [employer]DEL [employer] Resolved. In setting of renal failure, heart failure Still making some urine, on torsemide 100mg HS CXR with cardiomegaly with evidence of congestive failure Appreciate nephrology input Monitor I&Os, daily weights End stage renal disease on HD HD MWF at [facility] Continue renal diet, phos binders, diuresis Sarcoidosis Follows with Dr. Blackmon as outpatient Recent lung CT from November 2020 looks improved Hypertension: stable Home regimen includes amlodipine HS, hydralazine BID, lisinopril HS and Toprol Monitor BP -blood pressure is controlled Diabetes Type 2 DM - A1c 6.9 in 08/13 Repeat a1c 6.8 Hypoglycemic episode in ER - given diet Glycemic consult placed BSG AC HS Anemia of chronic disease Hgb currently 7.8 (baseline mid 8-) Receives iron supplementation at HD Monitor with daily CBC DVT Ppx: SCDs given anemia, possible GI bleed Code status: FULL PCP: Dr. Lovelace Dispo: med tele, plan to DC home Patient left the hospital today after his colonoscopy, before being seen and discharged. (2) ESRD (end stage renal disease) on dialysis: Total Time Total Time Spent Total Time Spent (In Minutes): 0 Discharge Plan Discharge Items Patient Disposition: Home - Self-Care Reason For Visit: POSSIBLE GI BLEED, ANEMIA, ESRD ON HD Discharge Diagnosis: Anemia, concern for GI bleed Lesion likely olyp in the rectum End-stage renal disease on dialysis Pt left AMA before being seen and discharged Activity: Resume your previous activity Non-emergency contact: Primary Care Provider and Mold Clamper Call non-emergency contact if: you have any medication questions and your symptoms worsen Follow-up/Referrals: Jaime Lovelace MD [Primary Care Provider] - (Date & Time 01/31/2021 11:20 AM Provider Yanick Ludwig MD Department Family Medicine [facility] ) Diet: Carb Count or DM1 and Dialysis Renal Addtl Attending Provider Instructions: Follow-up with your primary care doctor, the appointment was scheduled for January 31. Also continue to follow with your already scheduled dialysis. Your bowel preparation for colonoscopy was not adequate, and therefore gastroenterology will be contacting you about follow-up colonoscopy. There was a lesion possibly polyp found in the rectum, which will need further attention. In the meantime you will need to follow-up for your anemia. Pt left AMA before being seen and discharged. Pending Studies at Discharge: No Stand-Alone Forms: My [facility] PiniOn, Smoking Cessation Medications and DC Order Prescriptions: Continued Lantus Solostar U-100 Insulin 100 unit/mL (3 mL) Insulin Pen 56 unit SUBCUT QAM RF: 0 calcium acetate(phosphat bind) 667 mg Tablet 1,334 mg PO AC RF: 0 amlodipine 10 mg Tablet 10 mg PO HS RF: 0 lisinopril 40 mg Tablet 40 mg PO HS RF: 0 hydralazine 25 mg Tablet 25 mg PO BID RF: 0 calcium carbonate [Tums] 200 mg calcium (500 mg) Tablet,Chewable 200 mg PO DAILY PRN (Reason: gastric upset) RF: 0 Myrna-Bello 0.8 mg Tablet 1 tab PO PM RF: 0 albuterol sulfate 90 mcg/actuation HFA aerosol inhaler 2 puff INHALATION Q6 PRN (Reason: Shortness Of Breath Or Wheezing) RF: 0 atorvastatin 40 mg tablet 40 mg PO PM RF: 0 lorazepam 1 mg tablet 1 mg PO UD RF: 0 insulin aspart U-100 [Novolog Flexpen U-100 Insulin] 100 unit/mL (3 mL) insulin pen 16 unit SUBCUT AC RF: 0 metoprolol succinate 50 mg tablet extended release 24 hr 50 mg PO BID RF: 0 torsemide 100 mg tablet 100 mg PO PM RF: 0 trazodone 50 mg tablet 50 mg PO HS RF: 0 aspirin 81 mg Tablet 81 mg PO QAM RF: 0 Auryxia 210 mg iron tablet 420 mg PO AC RF: 0 Discharge Orders: Discharge Order (Routine); Ordered 01/25/21 Ordered By: Antoine Robertson/Other Patient Handouts: A1C, Hypoglycemia (Low Blood Sugar), Managing Type 1 Diabetes Admission Data Admit Date/Time: 01/18/21 14:17 Attending Provider: Antoine Heller Admit Provider: Aren Kate Primary Care Provider: Jaime Lovelace Other Providers: Porfirio Xavier ; Aren Kate ; Lindsey Ott ; Aron Bae Other Interventions: Discharge Summary Assessment (RN) Last Done: 01/25/21 12:40
[2021-01-25] MEDS ORDERED: INSULIN ASPART 100 UNITS/ML 3 ML PEN SC SCH (16:30)
[2021-01-26] MEDS ORDERED: INSULIN GLARGINE SOLOSTAR 100 UNITS/ML 3 ML PEN SC SCH (09:00)
[2021-01-26] MEDS ORDERED: INSULIN ASPART 100 UNITS/ML 3 ML PEN SC SCH ×2 (11:45)
== END 2021-01-25 13:05 | disposition left against medical advice (07) | DRG 377 ==
LOC: ED 10:53 → SUATTDRO 14:17 → 3W 14:17

== ENCOUNTER 2021-01-29 10:48 | Observation (INO) ==
--- NOTE | 2021-01-29 12:09 | Emergency Department Note ---
History of Present Illness General Chief complaint: Shortness of Breath/Dyspnea Stated complaint: SOB Time Seen by Provider: 01/29/21 11:58 Source: patient, RN notes reviewed and old records reviewed Mode of arrival: ambulatory Limitations: no limitations History of Present Illness Maximum Pain Intensity: 7 This patient is a 40-year-old male who has a complex medical history including sarcoidosis, dialysis and diabetes, comes in after feeling short of breath. He normally wears 3 L of oxygen at home. He said he got up and went to the bathroom after walking it dropped down to 62%. He says he is in the 90s at rest. He has an occasional nonproductive cough. He has had the Covid vaccine and also tested negative last week when he was admitted. He was admitted recently for anemia. It was ultimately felt this was related to chronic renal disease and not GI bleed. He is not noticed any recent blood or melena stool. He went to dialysis today and he normally receives Friday. He was hypoxemic at 75% apparently so they sent him to the ER they did not dialyze him. He said he has slight chest pain when waking up this morning at 730 but it resolved after about an hour. He said no fever. He makes urine and has had no dysuria. He said decreased sleep and appetite. No weight gain or fluid gain. He is followed by Dr. Negrete from nephrology as well as Dr. Snell. His last blood sugar this morning was 173 and he says they have been running okay well lately Home Medications Medication Instructions Recorded Confirmed Type amlodipine 10 mg tablet 10 mg PO HS 06/11/19 01/29/21 History calcium acetate(phosphat bind) 667 1,334 mg PO AC 06/11/19 01/29/21 History mg tablet lisinopril 40 mg tablet 40 mg PO HS 06/11/19 01/29/21 History calcium carbonate 200 mg calcium 200 mg PO DAILY PRN 02/03/20 01/29/21 History (500 mg) chewable tablet (Tums) hydralazine 25 mg tablet 12.5 mg PO BID 02/03/20 01/29/21 History vitamin B complex-vitamin C-folic 1 tab PO PM 02/03/20 01/29/21 History acid 0.8 mg tablet (Myrna-Bello) albuterol sulfate 90 mcg/actuation 2 puff INHALATION Q6 PRN 10/13/20 01/29/21 History aerosol inhaler atorvastatin 40 mg tablet 40 mg PO PM 10/13/20 01/29/21 History insulin aspart U-100 100 unit/mL 16 unit SUBCUT AC 10/13/20 01/29/21 History (3 mL) subcutaneous pen (Novolog Flexpen U-100 Insulin aspart) lorazepam 1 mg tablet 1 mg PO UD 10/13/20 01/29/21 History torsemide 100 mg tablet 100 mg PO PM 10/13/20 01/29/21 History trazodone 50 mg tablet 50 mg PO HS 12/26/20 01/29/21 History ferric citrate 210 mg iron tablet 420 mg PO AC 01/18/21 01/29/21 History (Auryxia) aspirin 81 mg chewable tablet 81 mg PO QAM 01/29/21 01/29/21 History cholecalciferol (vitamin D3) 25 25 mcg PO DAILY 01/29/21 01/29/21 History mcg (1,000 unit) capsule (Vitamin D3) insulin glargine 100 unit/mL (3 56 unit SUBCUT HS 01/29/21 01/29/21 History mL) subcutaneous pen (Basaglar KwikPen U-100 Insulin) metoprolol tartrate 50 mg tablet 25 mg PO BID 01/29/21 01/29/21 History Allergies Allergy/AdvReac Type Severity Reaction Status Date / Time No Known Allergies Allergy Unknown Verified 01/29/21 11:58 Past Med/Surg History Medical History A-V fistula right Abnormal CT scan of lung Anemia Chronic respiratory failure with hypoxia COPD (chronic obstructive pulmonary disease) Diabetes IDDM (Type 1 per records) Dyslipidemia End stage renal disease diaylsis - M,W,F ([facility], [place]) Heart failure with reduced ejection fraction Hypertension Obesity Sarcoidosis per records Seizure disorder remote hx (2007) in setting of hypoglycemia (?ETOH related per records), no issues since Surgical History History of vascular access device permacath insertion Hx of biopsy kidney bx PONV (postoperative nausea and vomiting) Status post creation of arteriovenous fistula right: 2/20/18: MAC sedation at [facility] Family History Father Hypertension Social History Smoking Status: Former smoker Years Smoked: 2; Second Hand Exposure: No; Hx Alcohol Use: Yes Hx Substance Use: No Preferred Language: [place] Communication Ability: Effective Hose Mender Required: No Beliefs That Will Affect Care: None Current Living Situation: Other Current Living Situation Comment: Roommate Feels Safe at Home: Yes Assistive Devices: Oxygen - Continuous Review of Systems A total of 10 systems reviewed and were otherwise negative Physical Exam Vital Signs Vital Signs - 24 hr 01/29/21 11:15 01/29/21 12:00 01/29/21 12:32 Temperature 36.4 C L Temperature Source Oral Pulse Rate 80 88 79 Pulse Rate from SpO2 Sensor 88 79 Pulse Rhythm Regular Pulse Strength Normal Respiratory Rate 22 19 17 Respiratory Effort / Characteristics Spontaneous Short of Breath Respiratory Depth Normal Respiratory Pattern Regular Blood Pressure 169/75 H 179/84 H Blood Pressure Mean 106 115 Blood Pressure Position Sitting Pulse Oximetry 91 95 97 Oxygen Delivery Method Nasal Cannula Oxygen Flow Rate 4 Sepsis Recent Fever Within 48 Hours No Sepsis New/Unexplained Change in Mental Status No Sepsis Action Taken by Nursing No Action Required 01/29/21 12:44 01/29/21 13:00 01/29/21 13:30 Temperature Temperature Source Pulse Rate 79 84 Pulse Rate from SpO2 Sensor 80 83 Pulse Rhythm Pulse Strength Respiratory Rate 21 21 Respiratory Effort / Characteristics Respiratory Depth Respiratory Pattern Blood Pressure 169/82 H 172/78 H Blood Pressure Mean 111 109 Blood Pressure Position Pulse Oximetry 92 95 89 L Oxygen Delivery Method Nasal Cannula Oxygen Flow Rate 3 Sepsis Recent Fever Within 48 Hours Sepsis New/Unexplained Change in Mental Status Sepsis Action Taken by Nursing 01/29/21 14:00 Temperature Temperature Source Pulse Rate 78 Pulse Rate from SpO2 Sensor 79 Pulse Rhythm Pulse Strength Respiratory Rate 26 H Respiratory Effort / Characteristics Respiratory Depth Respiratory Pattern Blood Pressure 179/95 H Blood Pressure Mean 123 Blood Pressure Position Pulse Oximetry 94 Oxygen Delivery Method Oxygen Flow Rate Sepsis Recent Fever Within 48 Hours Sepsis New/Unexplained Change in Mental Status Sepsis Action Taken by Nursing General: Well developed well nourished young male who is on supplemental oxygen but in no acute distress, breathing comfortably on room air. Normal speech HEENT: Normal cephalic atraumatic. Pupils are equal round and reactive to light. Extraocular movements are intact. Oropharynx is pink with moist mucous membranes. No swelling of the mouth lips or tongue. Neck: Supple with a midline trachea. No meningeal signs or stiffness, no JVD or bruits. No Stridor. Chest: Clear to auscultation bilaterally with exception of some crackles in the bases. No wheezes or rhonchi. No increased work of breathing. Heart: Regular rate and rhythm without murmurs or gallops. Abdomen: Soft nontender, nondistended without rebound guarding or rigidity. Extremities: No cyanosis clubbing. Trace bilateral lower extremity edema. No c nadja tenderness or assymetry Spine/Back. Non tender to palpation. No CVA tenderness Skin: Good turgor without rashes. Neurologic exam: Cranial nerves two through 12 are intact. Motor and sensation are intact and symmetrical throughout. Course Administered Medications Discontinued Medications Insulin Human Regular (Novolin-R Insulin Per Unit Charge) 5 units IV NOW STA Stop: 01/29/21 14:02 Last Admin: 01/29/21 14:36 Dose: 5 units Documented by: [id number] Cosigned by: [id number] Medical Decision Making Differential Diagnosis Fluid overload/CHF, anemia, acute coronary syndrome, arrhythmia, PE, sarcoidosis, infection, Covid, electrolyte or metabolic abnormality Medical Records Attestation: I reviewed the patient's medical records. Home Medications Current Medication List: was personally reviewed by me Laboratory Data Attestation: I reviewed the patient's lab results. Result diagrams: 01/29/21 12:26 01/29/21 12:26 Lab Results 01/29/21 01/29/21 01/29/21 Range/Units 12:26 12:26 12:26 WBC 10.22 (4.8-10.8) K/uL RBC 2.54 L (4.7-6.1) M/uL Hgb 7.9 L (14.0-18.0) g/dL Hct 22.9 L (42-52) % MCV 90.2 (80-100) fL MCH 31.1 (25-34) pg MCHC 34.5 (32-36) g/dL RDW Std Deviation 53.8 H (36.4-46.3) fL RDW Coeff of Selin 16.8 H (11.5-14.5) % Plt Count 163 (130-400) K/uL MPV 10.4 (7.4-10.4) fL Immature Gran % (Auto) 0.8 % Neut % (Auto) 83.1 % Lymph % (Auto) 7.5 % Borden % (Auto) 2.2 % Eos % (Auto) 6.0 % Baso % (Auto) 0.4 % Neut # (Auto) 8.50 H (1.4-6.5) K/uL Lymph # (Auto) 0.77 L (1.2-3.4) K/uL Borden # (Auto) 0.22 (0.11-0.59) K/uL Eos # (Auto) 0.61 H (0-0.5) K/uL Baso # (Auto) 0.04 (0-0.2) K/uL Immature Gran # (Auto) 0.08 H (0.00-0.02) K/uL RBC Morphology Unremarkable APTT 22.6 (21.0-31.0) Seconds PTT Ratio 0.9 Sodium 133 L (136-145) mmol/L Potassium 3.9 (3.5-5.1) mmol/L Chloride 95 L (98-107) mmol/L Carbon Dioxide 25 (21-32) mmol/L Anion Gap 14.0 H (3-11) BUN 50 H (7-18) mg/dl Creatinine 11.30 H* (0.6-1.4) mg/dl Est Cr Clr Drug Dosing 10.6 ml/min Est GFR ( Amer) 5.9 ml/min Est GFR (Non-Af Amer) 5.1 ml/min BUN/Creatinine Ratio 4.5 L (10-20) Glucose 334 H* (70-99) mg/dl Lactate (0.4-2.0) mmol/L Calcium 8.6 (8.5-10.1) mg/dl Total Bilirubin 1.3 H (0.2-1) mg/dl AST 13 L (15-37) U/L ALT 22 (12-78) U/L Alkaline Phosphatase 82 (45-117) U/L Troponin I < 0.015 (0-0.045) ng/ml Total Protein 6.6 (6.4-8.2) gm/dl Albumin 3.3 L (3.4-5.0) gm/dl Globulin 3.3 (2.5-4.0) gm/dl Albumin/Globulin Ratio 1.0 (0.9-2) Lipase 80 (73-393) U/L Beta-Hydroxybutyric Acd 5.99 H (0.2-2.81) mg/dl COVID-19 Eval Order SARS-CoV-2 (PCR) (Negative) 01/29/21 01/29/21 01/29/21 Range/Units 12:50 12:50 14:02 WBC (4.8-10.8) K/uL RBC (4.7-6.1) M/uL Hgb (14.0-18.0) g/dL Hct (42-52) % MCV (80-100) fL MCH (25-34) pg MCHC (32-36) g/dL RDW Std Deviation (36.4-46.3) fL RDW Coeff of Selin (11.5-14.5) % Plt Count (130-400) K/uL MPV (7.4-10.4) fL Immature Gran % (Auto) % Neut % (Auto) % Lymph % (Auto) % Borden % (Auto) % Eos % (Auto) % Baso % (Auto) % Neut # (Auto) (1.4-6.5) K/uL Lymph # (Auto) (1.2-3.4) K/uL Borden # (Auto) (0.11-0.59) K/uL Eos # (Auto) (0-0.5) K/uL Baso # (Auto) (0-0.2) K/uL Immature Gran # (Auto) (0.00-0.02) K/uL RBC Morphology APTT (21.0-31.0) Seconds PTT Ratio Sodium (136-145) mmol/L Potassium (3.5-5.1) mmol/L Chloride (98-107) mmol/L Carbon Dioxide (21-32) mmol/L Anion Gap (3-11) BUN (7-18) mg/dl Creatinine (0.6-1.4) mg/dl Est Cr Clr Drug Dosing ml/min Est GFR ( Amer) ml/min Est GFR (Non-Af Amer) ml/min BUN/Creatinine Ratio (10-20) Glucose (70-99) mg/dl Lactate 1.4 (0.4-2.0) mmol/L Calcium (8.5-10.1) mg/dl Total Bilirubin (0.2-1) mg/dl AST (15-37) U/L ALT (12-78) U/L Alkaline Phosphatase (45-117) U/L Troponin I (0-0.045) ng/ml Total Protein (6.4-8.2) gm/dl Albumin (3.4-5.0) gm/dl Globulin (2.5-4.0) gm/dl Albumin/Globulin Ratio (0.9-2) Lipase (73-393) U/L Beta-Hydroxybutyric Acd (0.2-2.81) mg/dl COVID-19 Eval Order Covid19 at [facility] SARS-CoV-2 (PCR) NEGATIVE (Negative) Imaging Data Attestation: I personally reviewed and interpreted this imaging study as follows: My Impression: Chest x-raycardiomegaly with congestive heart failure changes Radiologist's Impression: Chest X-Ray 01/29/21 12:05 SINGLE VIEW CHEST CLINICAL HISTORY: Atypical chest pain. FINDINGS: An AP, portable, upright chest radiograph is compared to study dated 01/18/2021 and correlated with chest CT dated 10/13/2020. The examination is degraded by portable technique and patient rotation. The heart is enlarged. There is pulmonary vascular congestion. Interstitial opacities likely represent pulmonary edema. Trace pleural effusions are suspected. No pneumothorax is seen. There is chronic posttraumatic deformity of the right clavicle. IMPRESSION: 1. Cardiomegaly with evidence of congestive failure. 2. Interstitial opacities likely represent pulmonary edema. Correlate clinically for evidence of a superimposed infectious/inflammatory pneumonitis. 3. Suspect trace pleural effusions. ACT 112: Negative or not required by law. Electronically signed by: Marco Mejia M.D. 01/29/2021 1:25 PM ECG Data Attestation: I personally reviewed and interpreted this ECG as follows: Indication: + SOB/dyspnea Rate (beats per minute): 77 Rhythm: + normal sinus ECG Intervals/blocks: + Normal QRS, + Normal QT and + Normal [place] ECG [place]: + Normal ECG ST segments: + Normal ST segments ECG Findings: no PACs or no PVCs Comparison ECG Date: from (01/18/21) Change: no significant change MDM Narrative This patient is a 40-year-old male with a complex medical history, comes in after having shortness of breath. He did not receive his dialysis today as a sent him here. His vital signs look stable here and he looks well he is in no respiratory distress. IV access was established EKG and chest x-ray were obtained multiple blood testing was obtained. He was reassessed frequently. His chest x-ray does suggest fluid overload. EKG does not show any ischemic changes. He is anemic with a hemoglobin of 7.9 which is slightly lower than d ischarge although it sounds like he is been running low chronically. Given his shortness of breath, I do think that he needs to be admitted for further treatment and evaluation he will likely need dialysis. I did discuss the case with Dr. Joiner, Nephrology, when the patient initially arrived so that the patient could potentially have dialysis today. His blood sugar is also elevated in the 300 range and he was given 5 units of regular insulin. He is not acidotic however his beta hydroxybutyric acid is mildly elevated and is possible he could be in early DKA. The [facility] hospitalist saw him and will admit him for these measures and he will be dialyzed in the hospital. Continuous cardiac monitoring: Orders placed in EMR for continuous cardiac monitoring: Upon my interpretation the patient was noted to be in normal sinus rhythm with a rate of 80 Impression & Plan SOB (shortness of breath), End-stage renal disease (ESRD), CHF (congestive heart failure), Hyperglycemia Discharge Plan Visit Data Chief Complaint: Shortness of Breath/Dyspnea Stated Complaint: SOB ED Provider: Genaro Durant Discharge Problem: SOB (shortness of breath), End-stage renal disease (ESRD), CHF (congestive heart failure), Hyperglycemia Patient Disposition: Admitted As Inpatient Discharge Instructions Interventions: ED Discharge Assessment Last Done: 01/29/21 14:44
[2021-01-29 12:49] LABS: Basophils # (auto) 0.04 K/uL (0-0.2); Basophils % (auto) 0.4 %; Eosinophils # (auto) 0.61 K/uL (0-0.5); Hematocrit (blood only) 22.9 % (42-52); Hemoglobin 7.9 g/dL (14.0-18.0); Immature Granulocytes # (auto) 0.08 K/uL (0.00-0.02); Immature Granulocytes % (auto) 0.8 %; Lymphocytes # (auto) 0.77 K/uL (1.2-3.4); Lymphocytes % (auto) 7.5 %; Mean Corpuscular Hemoglobin 31.1 pg (25-34); Mean Corpuscular Hgb Conc 34.5 g/dL (32-36); Mean Corpuscular Volume 90.2 fL (80-100); Mean Platelet Volume 10.4 fL (7.4-10.4); Monocytes # (auto) 0.22 K/uL (0.11-0.59); Monocytes % (auto) 2.2 %; Neutrophils % (auto) 83.1 %; Platelet Count 163 K/uL (130-400); RDW Coefficient of Variation 16.8 % (11.5-14.5); RDW Standard Deviation 53.8 fL (36.4-46.3); Red Blood Count 2.54 M/uL (4.7-6.1); White Blood Count 10.22 K/uL (4.8-10.8)
[2021-01-29 13:01] LABS: Partial Thromboplastin Ratio 0.9; Partial Thromboplastin Time 22.6 Seconds (21.0-31.0)
[2021-01-29 13:21] LABS: RBC Morphology Unremarkable
--- NOTE | 2021-01-29 13:26 | XRay Report ---
SINGLE VIEW CHEST CLINICAL HISTORY: Atypical chest pain. FINDINGS: An AP, portable, upright chest radiograph is compared to study dated 01/18/2021 and correlat ed with chest CT dated 10/13/2020. The examination is degraded by portable technique and patient rotat ion. The heart is enlarged. There is pulmonary vascular congestion. Interstitial opacities likely rep resent pulmonary edema. Trace pleural effusions are suspected. No pneumothorax is seen. 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 IMPRESSION: 1. Cardiomegaly with evidence of congestive failure. 2. Interstitial opacities likely represent pulmonary edema. Correlate clinically for evidence of a king perimposed infectious/inflammatory pneumonitis. 3. Suspect trace pleural effusions. ACT 112: Negative or not required by law. Electronically signed by: Marco Mejia M.D. 01/29/2021 1:25 PM
[2021-01-29 13:29] LABS: Alanine Aminotransferase 22 U/L (12-78); Albumin Level 3.3 gm/dl (3.4-5.0); Alkaline Phosphatase 82 U/L (45-117); Aspartate Aminotransferase 13 U/L (15-37); BUN Creatinine Ratio 4.5 (10-20); Bilirubin,Total 1.3 mg/dl (0.2-1); Blood Urea Nitrogen 50 mg/dl (7-18); Calcium 8.6 mg/dl (8.5-10.1); Carbon Dioxide 25 mmol/L (21-32); Chloride 95 mmol/L (98-107); Creatinine Clr Calc Pharmacy 10.6 ml/min; Est GFR (African American) 5.9 ml/min; Est GFR (Non-African American) 5.1 ml/min; Globulin 3.3 gm/dl (2.5-4.0); Glucose 334 mg/dl (70-99); Lipase 80 U/L (73-393); Potassium 3.9 mmol/L (3.5-5.1); Sodium 133 mmol/L (136-145); Total Protein 6.6 gm/dl (6.4-8.2); Troponin I < 0.015 ng/ml (0-0.045)
[2021-01-29 13:48] LABS: Beta-Hydroxybutyrate 5.99 mg/dl (0.2-2.81)
[2021-01-29] MEDS ORDERED: NovoLIN-R INSULIN PER UNIT CHARGE IV STA (14:01)
[2021-01-29] MEDS ORDERED: PHARMACY GLYCEMIC MGMT CONSULT PRN (14:35)
--- NOTE | 2021-01-29 14:42 | History & Physical Report ---
Date of Service January 29, 2021 Assessment & Plan (1) ESRD (end stage renal disease) on dialysis: (2) Volume overload: (3) Acute and chronic respiratory failure with hypoxia: (4) Pulmonary edema: Plan: Acute on chronic hypoxic respiratory failure Chest x-ray showing congestion and pulmonary edema. Discussed with nephrology. Patient plan to get HD today. Continue home torsemide 100 mg Continue oxygen supplementation. Patient will need long tubing at home to help with getting around to the bathroom. Case management consult (5) Anemia of chronic disease: Plan: Anemia Hemoglobin 7.9 today. [Baseline appears to be 7-8] Was 8.6 on discharge. Patient denied any bloody bowel movements, melena or hematochezia. Reports brown stools. Patient was worked up during recent admission for EGD on 01/22/2021 without acute findings and colonoscopy on 01/25/2021 which showed poor bowel prep with lesion/polyp found in rectum and repeat colonoscopy recommended in 1 to 3 months. (6) Sarcoidosis: Plan: Patient will follow up with pulmonary Dr. Blackmon outpatient. (7) Diabetes: Plan: Patient reports that he takes Lantus 30 units in the morning and 20 at night at this time with 16 units of NovoLog with meals. But that day to 30 units this morning. Blood glucose currently poorly controlled. BG currently 334. No acidosis at this time Mildly elevated beta hydroxybutyrate ER ordered IV novolin 5U DC summary reported patient was on lantus 56U daily Will do lantus 28U bid for now, with sliding scale Pharm consult (8) NICM (nonischemic cardiomyopathy): (9) Hypertension: Plan: Nonischemic cardiomyopathy with EF of 45 to 49% in July 2020 and cardiac catheterization and 08/24/2020 which did not show any significant obstructive disease Continue antihypertensive BP currently elevated.Likely due to volume overload too MOnitor post HD Continue aspirin and statin (10) DVT prophylaxis: Plan: SCD for now in view of anemia Ambulate History of Present Illness Chief Complaint: Low oxygen level Primary Care Provider: Jaime Lovelace MD 40-year-old man with history of end-stage renal disease on dialysis Friday, DM type I, nonischemic cardiomyopathy with EF of 45 to 49% in July 2020 and cardiac catheterization and 08/24/2020 which did not show any significant obstructive disease, chronic hypoxic respiratory failure on 3 L of nasal oxygen, pulmonary sarcoidosis, hypertension and other medical problems who presents from home today complaining of shortness of breath and low oxygen. Patient was recently hospitalized and discharged on 01/25/2021 during which she was managed for anemia and had colonoscopy but left AMA before being seen on the day of discharge. Reported that he woke up this morning. Had some mild central chest discomfort which resolved shortly afterwards. He he took off his oxygen [which he usually does to use the bathroom] and could barely make it back from bathroom due to shortness of breath. He reported that he checked his oxygen at home and it was in the 60s oxygen saturation. He reported spoke with his dialysis center and was advised to come to the ER. Denied any fevers, nausea, vomiting. Denied any abdominal pain, diarrhea or constipation. Denied any melena, hematochezia or bright red blood per rectum. Reported chronic dry cough. Reports he still makes small amount of urine. No dysuria or frequency or hematuria Denies smoking, alcohol or illicit drug use. Reports adherence to his home medications. Stated he has been taking his insulin Lantus 30 in the morning and 20 at night. Allergies Allergy/AdvReac Type Severity Reaction Status Date / Time No Known Allergies Allergy Unknown Verified 01/29/21 11:58 Home Medications Medication Instructions Recorded Confirmed Type amlodipine 10 mg tablet 10 mg PO HS 06/11/19 01/29/21 History calcium acetate(phosphat bind) 667 1,334 mg PO AC 06/11/19 01/29/21 History mg tablet lisinopril 40 mg tablet 40 mg PO HS 06/11/19 01/29/21 History calcium carbonate 200 mg calcium 200 mg PO DAILY PRN 02/03/20 01/29/21 History (500 mg) chewable tablet (Tums) hydralazine 25 mg tablet 12.5 mg PO BID 02/03/20 01/29/21 History vitamin B complex-vitamin C-folic 1 tab PO PM 02/03/20 01/29/21 History acid 0.8 mg tablet (Myrna-Bello) albuterol sulfate 90 mcg/actuation 2 puff INHALATION Q6 PRN 10/13/20 01/29/21 History aerosol inhaler atorvastatin 40 mg tablet 40 mg PO PM 10/13/20 01/29/21 History insulin aspart U-100 100 unit/mL 16 unit SUBCUT AC 10/13/20 01/29/21 History (3 mL) subcutaneous pen (Novolog Flexpen U-100 Insulin aspart) lorazepam 1 mg tablet 1 mg PO UD 10/13/20 01/29/21 History torsemide 100 mg tablet 100 mg PO PM 10/13/20 01/29/21 History trazodone 50 mg tablet 50 mg PO HS 12/26/20 01/29/21 History ferric citrate 210 mg iron tablet 420 mg PO AC 01/18/21 01/29/21 History (Auryxia) aspirin 81 mg chewable tablet 81 mg PO QAM 01/29/21 01/29/21 History cholecalciferol (vitamin D3) 25 25 mcg PO DAILY 01/29/21 01/29/21 History mcg (1,000 unit) capsule (Vitamin D3) insulin glargine 100 unit/mL (3 56 unit SUBCUT HS 01/29/21 01/29/21 History mL) subcutaneous pen (Basaglar KwikPen U-100 Insulin) metoprolol tartrate 50 mg tablet 25 mg PO BID 01/29/21 01/29/21 History Past Med/Surg History Medical History A-V fistula right Abnormal CT scan of lung Anemia Chronic respiratory failure with hypoxia COPD (chronic obstructive pulmonary disease) Diabetes IDDM (Type 1 per records) Dyslipidemia End stage renal disease diaylsis - M,W,F ([facility]) Heart failure with reduced ejection fraction Hypertension Obesity Sarcoidosis per records Seizure disorder remote hx (2007) in setting of hypoglycemia (?ETOH related per records), no issues since Surgical History History of vascular access device permacath insertion Hx of biopsy kidney bx PONV (postoperative nausea and vomiting) Status post creation of arteriovenous fistula right: 07/15/17: MAC sedation at [facility] Family History Father Hypertension Social History Smoking Status: Former smoker Years Smoked: 2; Second Hand Exposure: No; Hx Alcohol Use: Yes Hx Substance Use: No Preferred Language: Latvian Communication Ability: Effective School Boat [employer] Required: No Beliefs That Will Affect Care: None Current Living Situation: Other Current Living Situation Comment: Roommate Feels Safe at Home: Yes Assistive Devices: Oxygen - Continuous Review of Systems Constitutional: + weakness; no fever and no body aches Eyes: no problem reported Ear, Nose, Mouth, Throat: no problem reported Respiratory: + cough (Chronic), + dyspnea and + dyspnea on exertion Cardiovascular: + chest pain and + dyspnea; no palpitations and no lightheadedness Gastrointestinal: no abdominal pain, no nausea, no vomiting and no change in bowel habits Genitourinary: no dysuria or no urinary frequency Neurologic: no dizziness, no headache(s) and no confusion Psychiatric: no depression Physical Exam Constitutional: + well hydrated and + obese; no acute distress Eyes: PERRL, conjunctivae normal, anicteric sclerae ENMT: external ear and nose normal, oropharynx normal Respiratory: normal respiratory effort; no respiratory distress Auscultation: + diminished lung sounds On 3 L of nasal oxygen Cardiovascular: Rate/Rhythm: regular rate and regular rhythm S1-S2 Gastrointestinal (Abdomen): normal bowel sounds, soft, nontender, no hepatosplenomegaly Musculoskeletal: no cyanosis or clubbing, extremities motor strength 5/5 Neurologic: PERRL, EOMI, accommodation nl, no face palsy, no dysarthria Psychiatric: Orientation: alert and oriented x 3 Affect: + flat affect Results & Data Results & Data ([facility]) Vital Signs (Past 12 Hours) Vital Signs Temp Pulse Resp BP Pulse Ox 01/29/21 12:44 92 01/29/21 12:32 79 17 97 01/29/21 12:00 88 19 179/84 H 95 01/29/21 11:15 36.4 C L 80 22 169/75 H 91 Laboratory Results Abnormal lab results 01/29/21 01/29/21 Range/Units 12:26 12:26 RBC 2.54 L (4.7-6.1) M/uL Hgb 7.9 L (14.0-18.0) g/dL Hct 22.9 L (42-52) % RDW Std Deviation 53.8 H (36.4-46.3) fL RDW Coeff of Selin 16.8 H (11.5-14.5) % Neut # (Auto) 8.50 H (1.4-6.5) K/uL Lymph # (Auto) 0.77 L (1.2-3.4) K/uL Eos # (Auto) 0.61 H (0-0.5) K/uL Immature Gran # (Auto) 0.08 H (0.00-0.02) K/uL Sodium 133 L (136-145) mmol/L Chloride 95 L (98-107) mmol/L Anion Gap 14.0 H (3-11) BUN 50 H (7-18) mg/dl Creatinine 11.30 H* (0.6-1.4) mg/dl BUN/Creatinine Ratio 4.5 L (10-20) Glucose 334 H* (70-99) mg/dl Total Bilirubin 1.3 H (0.2-1) mg/dl AST 13 L (15-37) U/L Albumin 3.3 L (3.4-5.0) gm/dl Beta-Hydroxybutyric Acd 5.99 H (0.2-2.81) mg/dl Diagnostic Findings Chest x-ray An AP, portable, upright chest radiograph is compared to study dated 01/18/2021 and correlated with chest CT dated 10/13/2020. The examination is degraded by portable technique and patient rotation. The heart is enlarged. There is pulmonary vascular congestion. Interstitial opacities likely represent pulmonary edema. Trace pleural effusions are suspected. No pneumothorax is seen. There is chronic posttraumatic deformity of the right clavicle. IMPRESSION: 1. Cardiomegaly with evidence of congestive failure. 2. Interstitial opacities likely represent pulmonary edema. Correlate clinically for evidence of a superimposed infectious/inflammatory pneumonitis. 3. Suspect trace pleural effusions. Code Status & VTE Plan VTE Prophylaxis Plan VTE Prophylaxis will be ordered: Yes (1) Pulmonary edema Chronicity: acute Qualified Code(s): J81.0 - Acute pulmonary edema
[2021-01-29] MEDS ORDERED: SODIUM CHLORIDE 0.9% 1000ML 1,000 ML IV PRN (16:25)
[2021-01-29] MEDS: EPOETIN ALFA 10,000 UNITS/ML VIAL IV ONE ×2 (17:10→20:26)
[2021-01-29] MEDS ORDERED: CARBOHYDRATES FOR HYPOGLYCEMIA PO PRN (19:31)
[2021-01-29] MEDS ORDERED: GLUCOSE 40% GEL 15 GM TUBE PO PRN (19:31)
[2021-01-29] MEDS ORDERED: GLUCAGON FOR INJ 1 MG VIAL SQ PRN (19:31)
[2021-01-29] MEDS ORDERED: GLUCOSE 10 TABS/TUBE PO PRN (19:31)
[2021-01-29] MEDS ORDERED: ALBUTEROL HFA 8 GM INHALER INH PRN (19:31)
[2021-01-29] MEDS ORDERED: DEXTROSE 50% 50 ML SYRINGE IV PRN (19:31)
[2021-01-29] MEDS ORDERED: CALCIUM CARBONATE 500 MG CHEWABLE TAB PO PRN (19:31)
[2021-01-29] MEDS: HEPARIN SOD (PORCINE) 1000 UNIT/ML IV ONE ×2 (20:26→21:18)
[2021-01-29] MEDS ORDERED: NEPHROCAPS PO SCH (21:00)
[2021-01-29] MEDS ORDERED: traZODone HCL 50 MG TAB PO SCH (21:00)
[2021-01-29] MEDS ORDERED: amLODIPine BESYLATE 5 MG TAB PO SCH (21:00)
[2021-01-29] MEDS ORDERED: INSULIN GLARGINE SOLOSTAR 100 UNITS/ML 3 ML PEN SQ SCH (21:00)
[2021-01-29] MEDS ORDERED: TORSEMIDE 100 MG TAB PO SCH (21:00)
[2021-01-29] MEDS ORDERED: ATORVASTATIN 40 MG TAB PO SCH (21:00)
[2021-01-29] MEDS ORDERED: lisinopril 40 MG TAB PO SCH (21:00)
[2021-01-29] MEDS: INSULIN ASPART 100 UNITS/ML 3 ML PEN SQ SCH (21:45)
[2021-01-29] MEDS: hydrALAZINE HCL 25 MG TAB PO SCH (21:57)
[2021-01-29] MEDS: METOPROLOL TARTRATE 25 MG TAB PO SCH (21:57)
[2021-01-29] MEDS: CALCIUM ACETATE 667 MG CAP/TAB PO SCH (21:57)
[2021-01-30] MEDS ORDERED: INSULIN GLARGINE SOLOSTAR 100 UNITS/ML 3 ML PEN SC STA (00:10)
[2021-01-30] MEDS: INSULIN ASPART 100 UNITS/ML 3 ML PEN SQ SCH ×4 (00:39→12:28)
[2021-01-30 04:16] VITALS: BP 156/77; TEMP 98.6; O2SAT 93
[2021-01-30 07:44] LABS: Hematocrit (blood only) 24.3 % (42-52); Hemoglobin 8.2 g/dL (14.0-18.0); Mean Corpuscular Hemoglobin 30.5 pg (25-34); Mean Corpuscular Hgb Conc 33.7 g/dL (32-36); Mean Corpuscular Volume 90.3 fL (80-100); Mean Platelet Volume 9.1 fL (7.4-10.4); Platelet Count 199 K/uL (130-400); RDW Coefficient of Variation 17.2 % (11.5-14.5); RDW Standard Deviation 55.7 fL (36.4-46.3); Red Blood Count 2.69 M/uL (4.7-6.1); White Blood Count 9.44 K/uL (4.8-10.8)
--- NOTE | 2021-01-30 08:22 | Electrocardiogram Report ---
Test Reason : Blood Pressure : / mmHG Vent. Rate : 077 BPM Atrial Rate : 077 BPM P-R Int : 156 ms QRS Dur : 088 ms QT Int : 436 ms P-R-T Axes : 043 -05 052 degrees QTc Int : 493 ms Normal sinus rhythm Prolonged QT Abnormal ECG When compared with ECG of 18-JAN-2021 12:46, No significant change was found Confirmed by Steven Abdalla ([id number]) on 01/30/2021 8:22:07 AM Referred By: REFERRED SELF Confirmed By:Steven Abdalla
[2021-01-30 08:34] LABS: BUN Creatinine Ratio 3.8 (10-20); Calcium 8.8 mg/dl (8.5-10.1); Creatinine Clr Calc Pharmacy 15.2 ml/min; Est GFR (African American) 9.1 ml/min; Est GFR (Non-African American) 7.8 ml/min; Potassium 3.4 mmol/L (3.5-5.1)
[2021-01-30] MEDS ORDERED: CHOLECALCIFEROL 1,000 UNITS 25 MCG TAB PO SCH (09:00)
[2021-01-30] MEDS ORDERED: ASPIRIN 81 MG CHEW PO SCH (09:00)
[2021-01-30] MEDS ORDERED: INSULIN GLARGINE SOLOSTAR 100 UNITS/ML 3 ML PEN SC SCH ×3 (09:00→21:00)
--- NOTE | 2021-01-30 09:18 | Pharmacy Report ---
Pharmacy Glycemic Short Note 2 - Date of Service January 30, 2021 - Glycemic Short BSG Results (Last 24 hours): 01/29/21 01/29/21 01/30/21 12:26 19:43 00:01 Glucose 334 H* POC Glucose 82 318 H* 01/30/21 01/30/21 01/30/21 00:04 04:04 07:24 Glucose 73 POC Glucose 314 H* 134 H 01/30/21 07:27 Glucose POC Glucose 86 OUTPATIENT ANTIDIABETIC REGIMEN: * Basaglar 56 units HS vs 30 units SQ daily in AM + 20 units SQ PM? * A1c = unreliable in ESRD/HD ASSESSMENT: * 40yo T1DM male known to pharmacy from previous admission/glycemic consult - pt was just admitted last week * Average TDD last admission was ~ 50-60 units/day. Lantus was dosed BID last admission and patient reports taking long acting insulin BID as an outpatient. Will continue with BID Lantus and CF/CR insulin per previous admission. PLAN FOR INPATIENT GLYCEMIC CONTROL: * Basal insulin * Lantus 15 units SQ AM + 20 units SQ PM * Bolus insulin * NovoLog per scale ACHS or Q6hrs while NPO * Goal Range: Low 100 mg/dL - High 150 mg/dL * Correction Factor: 20 mg/dL/unit * Nutritional / Prandial insulin per carb ratio of 1 unit per 4 grams CHO consumed PLAN FOR DISCHARGE: * Pt to continue with SQ basal bolus insulin regimen- dosing regimen to be determined by patient (daily vs BID). Whichever will increase compliance/adh erence.
[2021-01-30] MEDS: CALCIUM ACETATE 667 MG CAP/TAB PO SCH ×2 (09:21→11:59)
[2021-01-30] MEDS: hydrALAZINE HCL 25 MG TAB PO SCH (09:23)
[2021-01-30] MEDS: METOPROLOL TARTRATE 25 MG TAB PO SCH (09:24)
--- NOTE | 2021-01-30 11:42 | Consultation Report ---
NEPHROLOGY CONSULTATION NOTE DATE OF CONSULTATION: 01/30/2021 REASON FOR CONSULTATION: Dialysis patient admitted with shortness of breath and hypoxia. HISTORY OF PRESENT ILLNESS: The patient is a 40-year-old male with end-stage renal disease, on dialy sis Friday, Friday, Friday, with type 1 diabetes, nonischemic cardiomyopathy, as well as chronic l andrew disease, on chronic oxygen. He presented to the hospital yesterday with shortness of breath as w ell as hypoxia at home down to the 60% level. He is on chronic oxygen at home. He did not get dialy sis outpatient yesterday, but instead came to the hospital and [facility]. He appears somewhat better breathing [place], he is very somnolent and barely talks to me. ALLERGIES: None. MEDICATIONS: Home medication list was reviewed in detail and is as per the reconciliation list. PAST MEDICAL AND SURGICAL HISTORY: AV fistula, anemia, chronic respiratory failure with hypoxia, on chronic oxygen, COPD, type 1 diabetes, end-stage renal disease, on dialysis Friday, Friday, Friday at the [facility] unit in [place], congestive heart failure with nonischemic cardiomyopathy, hype rtension, obesity, sarcoidosis, history of seizure disorder. FAMILY HISTORY: Negative for renal disease or dialysis. SOCIAL HISTORY: Former smoker. Alcohol occasionally. He is on chronic oxygen. He lives with a [facility]. REVIEW OF SYSTEMS: Unable to obtain as the patient barely opened his eyes and was very, very somnole nt. As per the H and P, he was having some cough with shortness of breath and dyspnea on exertion as well as chest discomfort. Otherwise, 12 systems were reviewed and negative. PHYSICAL EXAMINATION: GENERAL: Well hydrated, slightly obese, no overt respiratory distress at rest. VITAL SIGNS: Blood pressure 156/77, pulse rate 78, temperature 37 degrees Celsius, 93% on room air. HEENT: Mucous membrane is moist. NECK: Supple. No jugular venous distention. CHEST: Bilateral decreased breath sounds, occasional crackles. CARDIOVASCULAR: S1 and S2, regular. ABDOMEN: Soft, nontender. EXTREMITIES: Show trace edema. LABORATORY TEST: Reviewed in detail. Sodium 139, potassium 3.4, BUN 30, creatinine 7.89, hemoglobin is 8.2, WBC count 9.44. CHEST X-RAY: Shows cardiomegaly with evidence of congestive heart failure with possible pulmonary ed ashok. ASSESSMENT AND PLAN: A 40-year-old male with type 1 diabetes with end-stage renal disease, on hemodi alysis Friday, Friday, Friday as well as cardiomyopathy and chronic lung disease, on chronic oxyge n, admitted with shortness of breath and hypoxia at home. I have been consulted for dialysis. End-stage renal disease: He did have dialysis yesterday and after that he feels slightly better. He still has some evidence of fluid overload, but this is not really a whole lot different than what he usually has. His next dialysis will be tomorrow either as an outpatient if he gets discharged or as a n inpatient if he is still in the hospital. Plan to take 4 kilos off with dialysis on a 4-hour sessi on. Oxygen therapy is being managed by the hospitalist team. There is some confusion whether he has adequate oxygen and supplies or not. No further workup is needed at this time. Job ID: [id number]
--- NOTE | 2021-01-30 13:25 | Discharge Summary ---
Date of Service January 30, 2021 Admission HPI Per Admitting Provider 40-year-old man with history of end-stage renal disease on dialysis Friday, DM type I, nonischemic cardiomyopathy with EF of 45 to 49% in July 2020 and cardiac catheterization and 08/24/2020 which did not show any significant obstructive disease, chronic hypoxic respiratory failure on 3 L of nasal oxygen, pulmonary sarcoidosis, hypertension and other medical problems who presents from home today complaining of shortness of breath and low oxygen. Patient was recently hospitalized and discharged on 01/25/2021 during which she was managed for anemia and had colonoscopy but left AMA before being seen on the day of discharge. Reported that he woke up this morning. Had some mild central chest discomfort which resolved shortly afterwards. He he took off his oxygen [which he usually does to use the bathroom] and could barely make it back from bathroom due to shortness of breath. He reported that he checked his oxygen at home and it was in the 60s oxygen saturation. He reported spoke with his dialysis center and was advised to come to the ER. Denied any fevers, nausea, vomiting. Denied any abdominal pain, diarrhea or constipation. Denied any melena, hematochezia or bright red blood per rectum. Reported chronic dry cough. Reports he still makes small amount of urine. No dysuria or frequency or hematuria Denies smoking, alcohol or illicit drug use. Reports adherence to his home medications. Stated he has been taking his insulin Lantus 30 in the morning and 20 at night. Admission Exam Per Admitting Provider Constitutional: + well hydrated and + obese; no acute distress Eyes: PERRL, conjunctivae normal, anicteric sclerae ENMT: external ear and nose normal, oropharynx normal Respiratory: normal respiratory effort; no respiratory distress Auscultation: + diminished lung sounds On 3 L of nasal oxygen Cardiovascular: Rate/Rhythm: regular rate and regular rhythm S1-S2 Gastrointestinal (Abdomen): normal bowel sounds, soft, nontender, no hepatosplenomegaly Musculoskeletal: no cyanosis or clubbing, extremities motor strength 5/5 Neurologic: PERRL, EOMI, accommodation nl, no face palsy, no dysarthria Psychiatric: Orientation: alert and oriented x 3 Affect: + flat affect Principal Diagnosis Acute and chronic respiratory failure with hypoxia ESRD (end stage renal disease) on dialysis Volume overload Discharge Exam Constitutional + well hydrated and + obese; no acute distress Eyes PERRL, conjunctivae normal, anicteric sclerae ENMT external ear and nose normal, oropharynx normal Respiratory normal respiratory effort; no respiratory distress Auscultation: + diminished lung sounds Cardiovascular Rate/Rhythm: regular rate and regular rhythm S1 S2 Gastrointestinal (Abdomen) normal bowel sounds, soft, nontender, no hepatosplenomegaly Musculoskeletal no cyanosis or clubbing, extremities motor strength 5/5 Neurologic PERRL, EOMI, accommodation nl, no face palsy, no dysarthria Psychiatric Orientation: alert and oriented x 3 Affect: + flat affect Discharge Data Allergies Allergy/AdvReac Type Severity Reaction Status Date / Time No Known Allergies Allergy Unknown Verified 01/29/21 11:58 Consultations 01/29/21 13:44 ED Decision to Admit Stat 01/29/21 22:00 Consult Nephrology QSE Hospital Course (1) ESRD (end stage renal disease) on dialysis: (2) Volume overload: (3) Acute and chronic respiratory failure with hypoxia: (4) Pulmonary edema: Acute on chronic hypoxic respiratory failure Patient hypoxia is multifactorial especially in the setting of inconsistent use of oxygen as recommended. He occasionally takes his oxygen off to use the bathroom. Stated his tubing is not long enough. He also reports his oxygen concentrator's battery does not last long enough and that his oxygen tanks at home are empty. He could not give a good reason for not asking his supplier [employer] for fill/refill his oxygen tank. I am also concerned that patient may be poorly adherent to medication/fluid restrictions based on my conversations with him. Hence, volume overload may be related to this in the setting of ESRD on HD. Also acute on chronic diastolic is a possibility though less likely based on history Had HD yesterday with removal of 2.5L Medical Screener saw today. Patient to continue HD tomorrow at his HD center Continue home torsemide 100 mg Continue oxygen supplementation. Discussed with payroll manager who provided patient with requested resources and called [employer] as well Patient to call [employer] once he gets home to get the supplies he needs (5) Anemia of chronic disease: Anemia Hemoglobin 8.2 today. [Baseline appears to be 7-8] Patient denied any bloody bowel movements, melena or hematochezia. Reports brown stools. Patient was worked up during recent admission for EGD on 01/22/2021 without acute findings and colonoscopy on 01/25/2021 which showed poor bowel prep with lesi on/polyp found in rectum and repeat colonoscopy recommended in 1 to 3 months. (6) Sarcoidosis: Patient will follow up with pulmonary Dr. Blackmon outpatient. (7) Diabetes: A1c was 6.8 on 01/19/21 Provided diabetes education (8) NICM (nonischemic cardiomyopathy): (9) Hypertension: Nonischemic cardiomyopathy with EF of 45 to 49% in July 2020 and cardiac catheterization and 08/24/2020 which did not show any significant obstructive disease Continue home antihypertensive Continue aspirin and statin Patient was evaluated and deemed fit to be discharged today Was intially admitted as inpatient. However, after evaluation Code 44 was completed Total Time Total Time Spent Total Time Spent (In Minutes): 50 Total Time Includes: Examination of the Patient, Discharge Planning, Medication Reconciliation and Communication With Other Providers Discharge Plan Discharge Items Patient Disposition: Home - Self-Care Reason For Visit: HYPOXIA Discharge Diagnosis: Acute on chronic respiratory failure with hypoxia Volume overload ESRD on dialysis Activity: Resume your previous activity Non-emergency contact: Primary Care Provider and Medical Screener Call non-emergency contact if: you have any medication questions and your symptoms worsen Follow-up/Referrals: Jaime Lovelace MD [Primary Care Provider] - (Date & Time 02/06/2021 11:20 AM Provider Jaime Lovelace MD Department Family Medicine [facility] ) Diet: Carb Count or DM1 Fluids: 1800ml (7 cups) Addtl Attending Provider Instructions: Mr Justice. You came into the hospital complaining of low oxygen record at home and some shortness of breath after you took off your oxygen to go to the bathroom. You had your dialysis yesterday. Please ensure you Dicks once you get home as instructed by the director case management to ensure all supplies you need are provided. Please ensure you adhere to dietary/fluid management of your diabetes, heart failure and kidney disease. It is very important you continue to get dialysis and take medications as prescribed. Please ensure follow up with your Primary Doctor and Medical Screener It was a pleasure taking care of you. Pending Studies at Discharge: No Stand-Alone Forms: My [employer], Smoking Cessation Medications and DC Order Prescriptions: Continued calcium acetate(phosphat bind) 667 mg Tablet 1,334 mg PO AC RF: 0 amlodipine 10 mg Tablet 10 mg PO HS RF: 0 lisinopril 40 mg Tablet 40 mg PO HS RF: 0 hydralazine 25 mg Tablet 12.5 mg PO BID RF: 0 calcium carbonate [Tums] 200 mg calcium (500 mg) Tablet,Chewable 200 mg PO DAILY PRN (Reason: gastric upset) RF: 0 Myrna-Bello 0.8 mg Tablet 1 tab PO PM RF: 0 albuterol sulfate 90 mcg/actuation HFA aerosol inhaler 2 puff INHALATION Q6 PRN (Reason: Shortness Of Breath Or Wheezing) RF: 0 atorvastatin 40 mg tablet 40 mg PO PM RF: 0 lorazepam 1 mg tablet 1 mg PO UD RF: 0 insulin aspart U-100 [Novolog Flexpen U-100 Insulin] 100 unit/mL (3 mL) insulin pen 16 unit SUBCUT AC RF: 0 torsemide 100 mg tablet 100 mg PO PM RF: 0 trazodone 50 mg tablet 50 mg PO HS RF: 0 aspirin 81 mg tablet,chewable 81 mg PO QAM RF: 0 metoprolol tartrate 50 mg tablet 25 mg PO BID RF: 0 Basaglar KwikPen U-100 Insulin 100 unit/mL (3 mL) insulin pen 56 unit SUBCUT HS RF: 0 cholecalciferol (vitamin D3) [Vitamin D3] 25 mcg (1,000 unit) capsule 25 mcg PO DAILY RF: 0 Discharge Orders: Discharge Order (Routine); Ordered 01/30/21 Ordered By: So Sanchez Admission Data Admit Date/Time: 01/29/21 14:07 Attending Provider: So Sanchez I. Admit Provider: So Sanchez I. Primary Care Provider: Jaime Lovelace Other Providers: So Sanchez I. ; Liza Mata Other Interventions: Discharge Summary Assessment (RN) Last Done: 01/30/21 14:23
[2021-01-30 14:24] VITALS: PULSE 80
--- NOTE | 2021-01-30 15:51 | Communication Note ---
Date of Service: January 30, 2021 Code 44 attestation: 40-year-old male with significant past medical history including end-stage renal disease on hemodialysis, diabetes mellitus on insulin, nonischemic cardiomyopathy, hypertension including other medical condition as mentioned in H&P was admitted with volume overload which required dialysis. He has been evaluated by zinc min[employer] and he feels lot better following dialysis and is able to be discharged by the attending. By [facility] guidelines, a determination that the admission or continued stay is not medically necessary has been made by a member of the UR committee and a physician for this hospital stay, therefore a Code 44 will be completed and the Inpatient admission will be changed to outpatient. Dr Reanna Kate Member UR Committee
[2021-01-31] MEDS ORDERED: EPOETIN ALFA 20,000 UNITS/ML VIAL IV SCH (07:00)
[2021-01-31] MEDS ORDERED: SODIUM CHLORIDE 0.9% 1000ML 1,000 ML IV PRN (07:00)
== END 2021-01-30 15:54 | disposition home or self-care (01) ==
LOC: ED 10:48 → 2N 14:07 → INTOOBSV 14:07 → 2N 14:44

== ENCOUNTER 2021-05-02 05:35 | Inpatient (IN) ==
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
[2021-05-02] MEDS ORDERED: diphenhydrAMINE 50 MG/ML VIAL IV STA (06:29)
[2021-05-02] MEDS ORDERED: LIDOCAINE 5% 1 PATCH TD STA (06:29)
[2021-05-02] MEDS ORDERED: PROCHLORPERAZINE 1 ML IV ONE (06:29)
--- NOTE | 2021-05-02 07:04 | XRay Report ---
XR chest 1V portable HISTORY: 41 years-old Male dyspnea acute shortness of breath COMPARISON: Chest radiograph 04/19/2021 TECHNIQUE: Portable AP view of the chest FINDINGS: Cardiac silhouette is mildly enlarged. Interstitial coarsening with bilateral alveolar opacities, pro gressively worsened from prior. No pneumothorax or large pleural effusion. Healed chronic right clavi cular fracture deformity. IMPRESSION: Intermixed airspace and interstitial opacities have progressed from prior suggestive of m ultifocal pneumonia. Pulmonary edema could appear similarly. ACT 112: Negative or not required by law. The above report was generated using voice recognition software. It may contain grammatical, syntax o r spelling errors. Electronically signed by: Jimmy Hernandez M.D. 05/02/2021 7:03 AM
[2021-05-02 07:11] LABS: Influenza A virus by PCR Negative (Neg); Influenza B virus by PCR Negative (Neg); RSV by PCR Negative (Neg); SARS CoV2 RNA(COVID-19) InHosp NEGATIVE (Negative)
[2021-05-02 07:47] LABS: Basophils % (auto) 0.8 %; Eosinophils # (auto) 0.52 K/uL (0-0.5); Eosinophils % (auto) 4.2 %; Hematocrit (blood only) 25.3 % (42-52); Hemoglobin 7.9 g/dL (14.0-18.0); Immature Granulocytes # (auto) 0.25 K/uL (0.00-0.02); Lymphocytes % (auto) 9.6 %; Mean Corpuscular Hemoglobin 28.4 pg (25-34); Mean Corpuscular Hgb Conc 31.2 g/dL (32-36); Mean Platelet Volume 8.7 fL (7.4-10.4); Monocytes # (auto) 0.45 K/uL (0.11-0.59); Monocytes % (auto) 3.6 %; Neutrophils # (auto) 9.97 K/uL (1.4-6.5); Neutrophils % (auto) 79.8 %; Nucleated RBC # (auto) 0.07 K/uL (0-0); Nucleated RBC % (auto) 0.5 %; Platelet Count 274 K/uL (130-400); RDW Coefficient of Variation 17.2 % (11.5-14.5); Red Blood Count 2.78 M/uL (4.7-6.1); White Blood Count 12.49 K/uL (4.8-10.8)
--- NOTE | 2021-05-02 07:54 | CT Scan Report ---
CT head/brain wo con CLINICAL HISTORY: headache COMPARISON STUDY: 01/19/2021 CT DOSE: 537.48 mGy.cm TECHNIQUE: Standard CT of the Brain was performed without IV contrast. A dose lowering technique was utilized adhering to the principles of ALARA. FINDINGS: Extraaxial space: There is no evidence for subdural hematoma. There are no extra-axial fluid collecti ons. Ventricles and cisterns: The ventricles are normal in size and configuration. There is no evidence f or midline shift or mass effect. Parenchyma: There is no subarachnoid or intraparenchymal hemorrhage. There is no evidence for an acu te infarct or cerebral edema. There is homogeneous attenuation of the brain parenchyma. There are no gross mass lesions. Osseous structures: There is no evidence for an acute fracture. The visualized paranasal sinuses are clear. There has been interval development of asymmetric mucosal thickening involving the mastoid air cells on the left when compared to the right. Soft tissues: There is no evidence for focal soft tissue swelling. IMPRESSION: No acute intracerebral pathology. Interval development of left mastoiditis. ACT 112: Negative or not required by law. Electronically signed by: Gomez Menon M.D. 05/02/2021 7:53 AM
[2021-05-02 08:01] LABS: Partial Thromboplastin Ratio 0.9; Partial Thromboplastin Time 24.8 Seconds (21.0-31.0); Prothrombin Time 9.8 Seconds (9.0-12.0)
[2021-05-02 08:09] LABS: Polychromasia 1+
[2021-05-02] MEDS ORDERED: CEFEPIME 2,000 MG/20 ML VIAL IV STA (08:35)
[2021-05-02 08:47] LABS: Albumin Globulin Ratio 0.9 (0.9-2); Albumin Level 3.3 gm/dl (3.4-5.0); BUN Creatinine Ratio 6.1 (10-20); Bilirubin,Total 0.6 mg/dl (0.2-1); Calcium 9.9 mg/dl (8.5-10.1); Creatinine Clr Calc Pharmacy 11.3 ml/min; Est GFR (African American) 6.4 ml/min; Est GFR (Non-African American) 5.5 ml/min; Globulin 3.6 gm/dl (2.5-4.0); Magnesium 2.5 mg/dl (1.8-2.4); Potassium 4.4 mmol/L (3.5-5.1); Thyroid Stimulating Hormone 2.72 uIu/ml (0.300-4.500); Total Protein 6.9 gm/dl (6.4-8.2); Troponin I 0.032 ng/ml (0-0.045)
[2021-05-02] MEDS ORDERED: OPTIRAY 320 125ml IV ONE (09:49)
--- NOTE | 2021-05-02 10:38 | CT Scan Report ---
CT ANGIOGRAPHY OF THE CHEST, PULMONARY EMBOLUS PROTOCOL CLINICAL HISTORY: Shortness of breath. Evaluate for pulmonary embolus. COMPARISON STUDY: Chest radiograph May 02, 2021 at 5:[address] October 13, 2020. TECHNIQUE: Following IV administration of 120 mL of Optiray, helical axial images of the chest were o btained utilizing the pulmonary embolus protocol. Maximal intensity projections and sagittal and cor onal reformats were viewed on an independent 3D workstation. IV contrast was administered without co mplication. Automated exposure control was utilized for the study. A dose lowering technique was ut ilized adhering to the principles of ALARA. CT DOSE: 857.26 mGy.cm FINDINGS: No pulmonary emboli are identified. There is no thoracic aortic dissection. Moderate cardi omegaly is noted. No pericardial effusion. There is moderate coronary artery calcification. Enlarged mediastinal and bilateral hilar lymph nodes are noted. These have mildly increased in size since CT o f October 13, 2020. Index subcarinal lymph node measures 3.5 x 2.4 cm. It previously measured 3.2 x 1.8 c m. There are trace bilateral pleural effusions, right larger than left. There is extensive interlobul ar septal thickening and superimposed airspace opacities throughout the lungs. There is no pneumothor ax. Mild splenomegaly is partially imaged. This is similar to prior exam. IMPRESSION: 1. No pulmonary emboli identified. 2. Interlobular septal thickening consistent with pulmonary edema. Additional airspace opacities like ly reflect alveolar edema. The findings suggest moderate to severe pulmonary edema. 3. Increase in size of mediastinal and bilateral hilar lymph nodes since prior CT. These remain nonsp ecific. These could be related to pulmonary edema. A granulomatous or lymphoproliferative process is also within the differential. A follow-up chest CT in 6 months is recommended. 4. Small right and trace left pleural effusions. 5. Moderate cardiomegaly and coronary artery calcification. ACT 112: Negative or not required by law. Electronically signed by: Silverio Krishnamurthy M.D. 05/02/2021 10:37 AM
[2021-05-02] MEDS ORDERED: LANTUS PER UNIT CHARGE SQ ONE (11:15)
--- NOTE | 2021-05-02 12:47 | Nephrology Consultation ---
Date of Consultation May 02, 2021 Assessment & Plan (1) ESRD (end stage renal disease) on dialysis: w/ hx of repeatedly shortening HD txs AMA and with large IDWG. >HD today 4 hr 5.5 L UF target -eval for HD tomorrow -1.2L FR (2) Anemia of chronic disease: max dose fina w/ tx; daily hgb; needs repeat colonoscopy but refuses to prep historically; trans satn 04/02 at HD 34% (3) Volume overload: -as above History of Present Illness Reason for Consultation: ESRD on HD Requesting Physician: Dr Montero Attending Physician: Dr Montero History of Present Illness 41 y/o M whom I'm asked to see for dialysis needs is being admitted today for dyspnea and volume overload. In addition to ESRD, PMH includes chronic hypoxic respiratory failure on 2-3L baseline 02 and up to 5L w/ exertion, chronic nonischemic cardiomyopathy w/ reduced EF (45% 07/2020), DM 2, HTN, HL, sarcoidosis w/ pulmonary and cannot rule out cardiac involvement, intermittent hemoptysis, anemia of chronic disease; rectal/ colonic polyp overdue for reevaluation, chronic pain most often in BL hips, L knee; nonadherence to medical recommendations/advice. He dialyzes under my care MWF at [facility] via [facility]. he often cuts txs short d/t pain and anxiety; he ran 2 hr on 04/30 of 4hr tx. of his last 6 HD txs, only one ran multimedia designer; others signed of at least 1 hr or more early. he follows w/ [facility] pulmonary and cardiology but has been nonadherent w/ f/u; recently stated to me he wanted to change care to [facility] but has not moved to do that. He has been seen here x 2 in late March, one for chest pain/sob and signed out ama; other for eustacian tube malfunction. He came to ER instead of HD this am when he could not get sats into 90s despite 5L 02nc at home. He endorses orthopnea, exertional CP; no cough, no hemoptysis. He c/o R flank pain and denies L hip/knee pain today. no n/v, no bleeding. no change in chornic voiding habits. Allergies Allergy/AdvReac Type Severity Reaction Status Date / Time No Known Allergies Allergy Unknown Verified 03/15/21 14:41 Home Medications Medication Instructions Recorded Confirmed Type amlodipine 10 mg tablet 10 mg PO HS 06/11/19 05/02/21 History calcium acetate(phosphat bind) 667 1,334 mg PO AC 06/11/19 05/02/21 History mg tablet lisinopril 40 mg tablet 40 mg PO HS 06/11/19 05/02/21 History calcium carbonate 200 mg calcium 200 mg PO DAILY PRN 02/03/20 05/02/21 History (500 mg) chewable tablet (Tums) hydralazine 25 mg tablet 25 mg PO DAILY 02/03/20 05/02/21 History vitamin B complex-vitamin C-folic 1 tab PO PM 02/03/20 05/02/21 History acid 0.8 mg tablet (Myrna-Bello) albuterol sulfate 90 mcg/actuation 2 puff INHALATION Q6 PRN 10/13/20 05/02/21 History aerosol inhaler atorvastatin 40 mg tablet 40 mg PO PM 10/13/20 05/02/21 History insulin aspart U-100 100 unit/mL 16 unit SUBCUT AC 10/13/20 05/02/21 History (3 mL) subcutaneous pen (Novolog Flexpen U-100 Insulin aspart) lorazepam 1 mg tablet 1 mg PO UD 10/13/20 05/02/21 History torsemide 100 mg tablet 100 mg PO PM 10/13/20 05/02/21 History trazodone 50 mg tablet 50 mg PO HS 12/26/20 05/02/21 History aspirin 81 mg chewable tablet 81 mg PO QPM 01/29/21 05/02/21 History insulin glargine 100 unit/mL (3 56 unit SUBCUT QAM 01/29/21 05/02/21 History mL) subcutaneous pen (Basaglar KwikPen U-100 Insulin) metoprolol succinate 50 mg 50 mg PO BID 05/02/21 05/02/21 History tablet,extended release 24 hr Patient History Medical History (Updated 05/02/21 @ 15:09 by Nicki Thomson MD, PhD) A-V fistula right Anemia Chronic respiratory failure with hypoxia Chronic systolic CHF (congestive heart failure) Diabetes IDDM (Type 1 per records) Dyslipidemia End stage renal disease diaylsis - M,W,F ([place], [place]) History of colon polyps Hypertension NICM (nonischemic cardiomyopathy) Non compliance w medication regimen Obesity On home O2 on 2-3L at rest, up to 5L w/ exertion Poor historian Sarcoidosis per records Seizure disorder remote hx (2007) in setting of hypoglycemia (?ETOH related per records), no issues since Surgical History History of cardiac cath History of colonoscopy 01/25/21 [facility] History of esophagogastroduodenoscopy (EGD) 01/22/21 [facility] History of lung surgery removal of benign nodule History of surgery removal of permacath History of vascular access device permacath insertion Hx of biopsy kidney bx PONV (postoperative nausea and vomiting) Status post creation of arteriovenous fistula right: 07/15/17: MAC sedation at [facility] Family History Father Hypertension Social History Smoking Status: Former smoker Tobacco Type: Cigarettes Years Smoked: 2; Second Hand Exposure: No; Hx Alcohol Use: No Hx Substance Use: No Preferred Language: New Zealander Communication Ability: Effective Bread Racker Required: No Beliefs That Will Affect Care: None Current Living Situation: Alone Current Living Situation Comment: Roommate Feels Safe at Home: Yes Assistive Devices: Glasses and Oxygen - Continuous Review of Systems Review of Systems: All systems reviewed & are unremarkable except as noted in HPI & below Physical Exam Constitutional: well developed and well nourished on 5L 02nc, HOB 15 degrees Eyes: EOM intact bilaterally ENMT: Ears: no external ear abnormality Nose: no external nose abnormality Mouth: + dry oral mucous membranes Neck: no nuchal rigidity Respiratory: normal respiratory effort Auscultation: + diminished lung sounds, + crackles and + wheezes Cardiovascular: Rate/Rhythm: regular rate and regular rhythm Extremities: + edema (trace) and + AV fistula Gastrointestinal (Abdomen): Inspection/Auscultation: normal bowel sounds Percussion/Palpation: abdomen soft; abdomen nontender Musculoskeletal: Extremities: strength 5/5 throughout Skin: no rashes, warm and dry Neurologic: morocho, fluent speech, no tremor Psychiatric: Orientation: alert and oriented x 3 Affect: + flat affect Results & Data ([facility]) Vital Signs (Past 12 Hours) Vital Signs Temp Pulse Pulse Resp BP BP Pulse Ox 05/02/21 08:51 93 05/02/21 08:00 88 16 155/81 H 94 05/02/21 06:15 93 05/02/21 05:45 37.2 C 87 18 169/94 H 87 L Laboratory Results 05/02/21 07:31 05/02/21 07:[address] PE protocol 1. No pulmonary emboli identified. 2. Interlobular septal thickening consistent with pulmonary edema. Additional airspace opacities likely reflect alveolar edema. The findings suggest moderate to severe pulmonary edema. 3. Increase in size of mediastinal and bilateral hilar lymph nodes since prior CT. These remain nonspecific. These could be related to pulmonary edema. A granulomatous or lymphoproliferative process is also within the differential. A follow-up chest CT in 6 months is recommended 4. Small right and trace left pleural effusions. 5. Moderate cardiomegaly and coronary artery calcification. Head CT > no acute IC path; L mastoiditis
--- NOTE | 2021-05-02 13:54 | History & Physical Report ---
Date of Service May 02, 2021 Assessment & Plan (1) SOB (shortness of breath): (2) Volume overload: (3) Pneumonia: (4) NICM (nonischemic cardiomyopathy): (5) ESRD (end stage renal disease) on dialysis: (6) COPD (chronic obstructive pulmonary disease): (7) Chronic respiratory failure with hypoxia: Plan: -Admit to telemetry -Patient presenting from home with reports of worsening shortness of breath and hypoxia at home. Patient typically wears 3 to 5 L of oxygen continuously. -Has some intermittent hypoxia in the ED in the high 80s however is generally saturating well on chronic 5 L -Shortness of breath/hypoxia likely multifactorial due to volume overload in the setting of nonischemic cardiomyopathy/combined systolic and diastolic CHF (EF 45 to 49%, grade 1 diastolic dysfunction echo 07/2020) and ESRD on dialysis (patient requested to end treatment 2 hours early 2 days ago). -CXR suggestive of a multifocal pneumonia, WBC 12 K, procalcitonin 1.97 -s/p cefepime in the ED, continue with. Check MRSA nasal swab and if positive will add vancomycin. Check blood cultures. Noted negative COVID-19, influenza, RSV. -To assist in volume management, patient will undergo dialysis today. Case was discussed with Dr. Thomson. (8) Mastoiditis of left side: Plan: -left mastoiditis noted on head CT -currently receiving IV cefepime as above -ENT consulted - notified Dr. Jackman's office (9) Mediastinal adenopathy: (10) Sarcoidosis: Plan: -CT chest shows increase in size of mediastinal and bilateral hilar lymph nodes since prior CT -will need outpatient follow-up with pulmonology (11) Hypertension: Plan: -BP mildly elevated in ED -Should improve after dialysis -Continue home doses of hydralazine, lisinopril, amlodipine, metoprolol for now (12) DM type 1 (diabetes mellitus, type 1): Plan: -Hgb A1c 6.4 02/2021 -Glycemic pharmacy consulted while admitted (13) Anemia of chronic disease: Plan: -Anemia due to CKD -Hgb 7.9, at baseline (14) DVT prophylaxis: Plan: -SQ heparin History of Present Illness Chief Complaint: Shortness of breath Primary Care Provider: Jaime Lovelace MD 41-year-old male with PMH DM type I, ESRD on hemodialysis MWF, nephrotic syndrome, nonischemic cardiomyopathy, sarcoidosis, medical noncompliance, and other problems to below who presents the ED for evaluation of shortness of breath. Patient is a poor historian. When asked how long his symptoms have been present he states " 3 years". Patient was seen in the ED on 04/16 and diagnosed with left eustachian tube dysfunction. Was given instructions to take [id number] medications and drink plenty of fluids. Patient was seen in the ED again on 04/19 with a chief complaint of chest pain or shortness of breath, patient subsequently signed out AGAINST MEDICAL ADVICE. During last dialysis session on 04/30, patient requested that treatment and 2 hours early due to leg pain and restlessness. Patient reports he chronically wears 3 to 5 L of oxygen. Last evening, he reports he became short of breath and oxygen level was 47%. Reports he could not get his oxygen level above the mid 80s. Patient denies chest pain. He has had an intermittent nonproductive cough. No fevers or chills. Denies lightheadedness, dizziness, diaphoresis, syncopal events. No abdominal pain, nausea, vomiting, diarrhea. Patient continues to make a small amount of urine, denies dysuria. In the ED, patient has had some intermittent hypoxia in the high 80s however is generally saturating well on chronic 5 L of oxygen. Labs show WBC 12.4K, Hgb 7.9, procalcitonin 1.97. CXR is suggestive of a multifocal pneumonia. Head CT shows no acute intracerebral pathology. Interval development of left mastoiditis. CTA chest negative for pulmonary embolism. Patient received IV cefepime, IV diphenhydramine, IV prochlorperazine. Allergies Allergy/AdvReac Type Severity Reaction Status Date / Time No Known Allergies Allergy Unknown Verified 03/15/21 14:41 Home Medications Medication Instructions Recorded Confirmed Type amlodipine 10 mg tablet 10 mg PO HS 06/11/19 05/02/21 History calcium acetate(phosphat bind) 667 1,334 mg PO AC 06/11/19 05/02/21 History mg tablet lisinopril 40 mg tablet 40 mg PO HS 06/11/19 05/02/21 History calcium carbonate 200 mg calcium 200 mg PO DAILY PRN 02/03/20 05/02/21 History (500 mg) chewable tablet (Tums) hydralazine 25 mg tablet 25 mg PO DAILY 02/03/20 05/02/21 History vitamin B complex-vitamin C-folic 1 tab PO PM 02/03/20 05/02/21 History acid 0.8 mg tablet (Myrna-Bello) albuterol sulfate 90 mcg/actuation 2 puff INHALATION Q6 PRN 10/13/20 05/02/21 History aerosol inhaler atorvastatin 40 mg tablet 40 mg PO PM 10/13/20 05/02/21 History insulin aspart U-100 100 unit/mL 16 unit SUBCUT AC 10/13/20 05/02/21 History (3 mL) subcutaneous pen (Novolog Flexpen U-100 Insulin aspart) lorazepam 1 mg tablet 1 mg PO UD 10/13/20 05/02/21 History torsemide 100 mg tablet 100 mg PO PM 10/13/20 05/02/21 History trazodone 50 mg tablet 50 mg PO HS 12/26/20 05/02/21 History aspirin 81 mg chewable tablet 81 mg PO QPM 01/29/21 05/02/21 History insulin glargine 100 unit/mL (3 56 unit SUBCUT QAM 01/29/21 05/02/21 History mL) subcutaneous pen (Basaglar KwikPen U-100 Insulin) metoprolol succinate 50 mg 50 mg PO BID 05/02/21 05/02/21 History tablet,extended release 24 hr Past Med/Surg History Medical History A-V fistula right Anemia Chronic respiratory failure with hypoxia Chronic systolic CHF (congestive heart failure) Diabetes IDDM (Type 1 per records) Dyslipidemia End stage renal disease diaylsis - M,W,F ([place], [place]) History of colon polyps Hypertension NICM (nonischemic cardiomyopathy) Non compliance w medication regimen Obesity On home O2 on 2-3L at rest, up to 5L w/ exertion Poor historian Sarcoidosis per records Seizure disorder remote hx (2007) in setting of hypoglycemia (?ETOH related per records), no issues since Surgical History History of cardiac cath History of colonoscopy 01/25/21 [facility] History of esophagogastroduodenoscopy (EGD) 01/22/21 [facility] History of lung surgery removal of benign nodule History of surgery removal of permacath History of vascular access device permacath insertion Hx of biopsy kidney bx PONV (postoperative nausea and vomiting) Status post creation of arteriovenous fistula right: 07/15/17: MAC sedation at [facility] Family History Father Hypertension Social History Smoking Status: Former smoker Tobacco Type: Cigarettes Years Smoked: 2; Second Hand Exposure: No; Hx Alcohol Use: No Hx Substance Use: No Preferred Language: Slovak Communication Ability: Effective Manager Mobile Required: No Beliefs That Will Affect Care: None Current Living Situation: Alone Current Living Situation Comment: Roommate Other Information That Helps Us Care for You: No Feels Safe at Home: Yes Safety Concerns: Feels Safe At This Time Assistive Devices: Glasses and Oxygen - Continuous Review of Systems Review of Systems: ROS per HPI, all other systems reviewed and negative Physical Exam Constitutional: WD/WN, vitals as above Eyes: PERRL, conjunctivae normal, anicteric sclerae ENMT: external ear and nose normal, oropharynx normal Respiratory: normal respiratory effort; no respiratory distress Auscultation: + diminished lung sounds Cardiovascular: Rate/Rhythm: regular rate and regular rhythm Vessels: normal peripheral pulses Extremities: no edema Gastrointestinal (Abdomen): normal bowel sounds, soft, nontender, no hepatosplenomegaly Musculoskeletal: no cyanosis or clubbing, extremities motor strength 5/5 Skin: no rashes, warm and dry Neurologic: PERRL, EOMI, accommodation nl, no face palsy, no dysarthria Psychiatric: A+Ox3, euthymic affect Results & Data Results & Data ([facility]) Vital Signs (Past 12 Hours) Vital Signs Temp Pulse Pulse Resp BP BP Pulse Ox 05/02/21 08:51 93 05/02/21 08:00 88 16 155/81 H 94 05/02/21 06:15 93 05/02/21 05:45 37.2 C 87 18 169/94 H 87 L Laboratory Results Short CBC 05/02/21 Range/Units 07:31 WBC 12.49 H (4.8-10.8) K/uL Hgb 7.9 L (14.0-18.0) g/dL Hct 25.3 L (42-52) % Plt Count 274 (130-400) K/uL BMP 05/02/21 07:31 Sodium 139 Potassium 4.4 Chloride 102 Carbon Dioxide 25 BUN 64 H Creatinine 10.50 H* Glucose 156 H Calcium 9.9 Cardiac Enzymes 05/02/21 Range/Units 07:31 Troponin I 0.032 (0-0.045) ng/ml Liver Function 05/02/21 Range/Units 07:31 Total Bilirubin 0.6 (0.2-1) mg/dl AST 9 L (15-37) U/L ALT 18 (12-78) Alkaline Phosphatase 65 (45-117) U/L Albumin 3.3 L (3.4-5.0) gm/dl Diagnostic Findings Chest X-Ray 05/02/21 05:58 XR chest 1V portable HISTORY: 41 years-old Male dyspnea acute shortness of breath COMPARISON: Chest radiograph 04/19/2021 TECHNIQUE: Portable AP view of the chest FINDINGS: Cardiac silhouette is mildly enlarged. Interstitial coarsening with bilateral alveolar opacities, progressively worsened from prior. No pneumothorax or large pleural effusion. Healed chronic right clavicular fracture deformity. IMPRESSION: Intermixed airspace and interstitial opacities have progressed from prior suggestive of multifocal pneumonia. Pulmonary edema could appear similarly. ACT 112: Negative or not required by law. The above report was generated using voice recognition software. It may contain grammatical, syntax or spelling errors. Electronically signed by: Jimmy Hernnadez M.D. 05/02/2021 7:[address] 05/02/21 06:21 CT head/brain wo con CLINICAL HISTORY: headache COMPARISON STUDY: 01/19/2021 CT DOSE: 537.48 mGy.cm TECHNIQUE: Standard CT of the Brain was performed without IV contrast. A dose lowering technique was utilized adhering to the principles of ALARA. FINDINGS: Extraaxial space: There is no evidence for subdural hematoma. There are no ext ra-axial fluid collections. Ventricles and cisterns: The ventricles are normal in size and configuration. There is no evidence for midline shift or mass effect. Parenchyma: There is no subarachnoid or intraparenchymal hemorrhage. There is no evidence for an acute infarct or cerebral edema. There is homogeneous attenuation of the brain parenchyma. There are no gross mass lesions. Osseous structures: There is no evidence for an acute fracture. The visualized paranasal sinuses are clear. There has been interval development of asymmetric mucosal thickening involving the mastoid air cells on the left when compared to the right. Soft tissues: There is no evidence for focal soft tissue swelling. IMPRESSION: No acute intracerebral pathology. Interval development of left mastoiditis. ACT 112: Negative or not required by law. Electronically signed by: Gomez Menon M.D. 05/02/2021 7:53 AM Chest CTA 05/02/21 08:27 CT ANGIOGRAPHY OF THE CHEST, PULMONARY EMBOLUS PROTOCOL CLINICAL HISTORY: Shortness of breath. Evaluate for pulmonary embolus. COMPARISON STUDY: Chest radiograph May 02, 2021 at 5:[address] October 13, 2020. TECHNIQUE: Following IV administration of 120 mL of Optiray, helical axial images of the chest were obtained utilizing the pulmonary embolus protocol. Maximal intensity projections and sagittal and coronal reformats were viewed on an independent 3D workstation. IV contrast was administered without complication. Automated exposure control was utilized for the study. A dose lowering technique was utilized adhering to the principles of ALARA. CT DOSE: 857.26 mGy.cm FINDINGS: No pulmonary emboli are identified. There is no thoracic aortic dissection. Moderate cardiomegaly is noted. No pericardial effusion. There is moderate coronary artery calcification. Enlarged mediastinal and bilateral hilar lymph nodes are noted. These have mildly increased in size since CT of October 13, 2020. Index subcarinal lymph node measures 3.5 x 2.4 cm. It previously measured 3.2 x 1.8 cm. There are trace bilateral pleural effusions, right larger than left. There is extensive interlobular septal thickening and superimposed airspace opacities throughout the lungs. There is no pneumothorax. Mild splenomegaly is partially imaged. This is similar to prior exam. IMPRESSION: 1. No pulmonary emboli identified. 2. Interlobular septal thickening consistent with pulmonary edema. Additional airspace opacities likely reflect alveolar edema. The findings suggest moderate to severe pulmonary edema. 3. Increase in size of mediastinal and bilateral hilar lymph nodes since prior CT. These remain nonspecific. These could be related to pulmonary edema. A granulomatous or lymphoproliferative process is also within the differential. A follow-up chest CT in 6 months is recommended. 4. Small right and trace left pleural effusions. 5. Moderate cardiomegaly and coronary artery calcification. ACT 112: Negative or not required by law. Electronically signed by: Silverio Krishnamurthy M.D. 05/02/2021 10:37 AM Code Status & VTE Plan VTE Prophylaxis Plan VTE Prophylaxis will be ordered: Yes Supervising Physician Co-Signing Physician Notes I have seen and examined the patient and have discussed the case with the provider above. I agree with the assessment and plan as stated with the following exceptions. 40 yo M with Type 1 DM, ESRD on hemodialysis, heart failure with NICM, h/o sarcoidosis, hypertension and obesity. Presented with worsening hypoxia over the last 2-3 months and nonproductive cough. He was felt to have a possible viral pneumonia, however, he has recently been noncompliant with hemodialysis sessions. Exam, history and imaging is consistent with volume overload, possibly in the setting of ESRD and noncompliance. ROS is limited and he appears slightly agitated. Physical exam revealing no acute distress, WNWD man, breathing comfortably on supplemental oxygen. Abdomen benign, no peripheral edema. Heart exam as above. Lungs clear to auscultation. Cannot perform CT chest but would like to rule out PE, no PIV to accommodate this. Contacted nephrology and plan for HD with UF removal today. ENT consult with mastoiditis and hearing loss. DO Winston
[2021-05-02] MEDS: hydrALAZINE HCL 25 MG TAB PO SCH (14:34)
[2021-05-02] MEDS: METOPROLOL SUCC 50MG EXT REL TAB PO SCH ×2 (14:34→22:52)
[2021-05-02] MEDS ORDERED: PHARMACY GLYCEMIC MGMT CONSULT PRN (14:45)
[2021-05-02] MEDS ORDERED: CALCIUM ACETATE 667 MG CAP/TAB PO PRN (14:46)
[2021-05-02] MEDS ORDERED: DEXTROSE 50% 50 ML SYRINGE IV PRN (15:00)
[2021-05-02] MEDS ORDERED: GLUCOSE 10 TABS/TUBE PO PRN (15:00)
[2021-05-02] MEDS ORDERED: GLUCOSE 40% GEL 15 GM TUBE PO PRN (15:00)
[2021-05-02] MEDS ORDERED: CARBOHYDRATES FOR HYPOGLYCEMIA PO PRN (15:00)
[2021-05-02] MEDS ORDERED: GLUCAGON FOR INJ 1 MG VIAL IM PRN (15:00)
--- NOTE | 2021-05-02 15:29 | Pharmacy Report ---
Pharmacy Glycemic Short Note 2 - Date of Service May 02, 2021 - Glycemic Short BSG Results (Last 24 hours): 05/02/21 07:31 Glucose 156 H OUTPATIENT ANTIDIABETIC REGIMEN: * Lantus 56 units SC AM * Novolog 16 units SC AC * HbA1c pending ASSESSMENT: * 41 yo M admitted due to shortness of breath. Patient has ESRD on HD MWF. Pharmacy has been consulted to assist with inpatient glycemic management. Patient is known to this service. * No insulin administered today prior to admission. BSG upon arrival to ED was 156 mg/dL. Gave a reduced home dose of Lantus 30 units x 1. Will add a Lantus scale this evening in case patient is hyperglycemic. * Novolog will be started based on previous admission data. Will add overnight checks for the first night. Targeting a goal range of 110-140 mg/dL. * Patient scheduled to have HD today. PLAN FOR INPATIENT GLYCEMIC CONTROL: * Basal insulin * Lantus 30 units SC x 1 * Lantus 10-20 units SC HS (see eMAR for more details) * Bolus insulin * NovoLog per scale ACHS or Q6hrs while NPO * Goal Range: Low 110 mg/dL - High 140 mg/dL * Correction Factor: 20 mg/dL/unit * Nutritional / Prandial insulin per carb ratio of 1 unit per 4 grams CHO consumed PLAN FOR DISCHARGE: * To be determined
[2021-05-02] MEDS: HEPARIN SOD 5,000 UNIT/0.5 ML VIAL SQ SCH ×2 (15:59→22:53)
[2021-05-02] MEDS: ACETAMINOPHEN 325 MG TAB PO PRN (15:59)
--- NOTE | 2021-05-02 15:59 | Electrocardiogram Report ---
Test Reason : Blood Pressure : / mmHG Vent. Rate : 089 BPM Atrial Rate : 089 BPM P-R Int : 168 ms QRS Dur : 090 ms QT Int : 386 ms P-R-T Axes : 050 -09 051 degrees QTc Int : 469 ms Normal sinus rhythm Possible Left atrial enlargement Borderline ECG When compared with ECG of 19-APR-2021 05:13, No significant change was found Confirmed by Zeferino Desai ([id number]) on 05/02/2021 3:59:35 PM Referred By: REFERRED SELF Confirmed By:Zeferino Desai
[2021-05-02] MEDS ORDERED: INSULIN ASPART 100 UNITS/ML VIAL SC SCH (16:30)
[2021-05-02] MEDS ORDERED: HEPARIN SOD (PORCINE) 1000 UNIT/ML IV ONE (18:41)
[2021-05-02] MEDS ORDERED: SODIUM CHLORIDE 0.9% 1000ML 1,000 ML IV PRN (18:41)
[2021-05-02] MEDS: LORazepam 0.5 MG TAB PO PRN (18:45)
[2021-05-02] MEDS: HEPARIN SOD (PORCINE) 1000 UNIT/ML IV SCH ×2 (19:53→20:36)
[2021-05-02] MEDS ORDERED: EPOETIN ALFA 20,000 UNITS/ML VIAL IV SCH (20:00)
[2021-05-02] MEDS ORDERED: INSULIN GLARGINE SOLOSTAR 100 UNITS/ML 3 ML PEN SC SCH (21:00)
[2021-05-02] MEDS: INSULIN ASPART PER UNIT SC SCH (21:00)
[2021-05-02] MEDS: CALCIUM ACETATE 667 MG CAP/TAB PO SCH (22:44)
[2021-05-02] MEDS: TORSEMIDE 100 MG TAB PO SCH (22:52)
[2021-05-02] MEDS: traZODone HCL 50 MG TAB PO SCH (22:52)
[2021-05-02] MEDS: ASPIRIN 81 MG CHEW PO SCH (22:53)
[2021-05-02] MEDS: amLODIPine BESYLATE 5 MG TAB PO SCH (22:53)
[2021-05-02] MEDS: lisinopril 40 MG TAB PO SCH (22:53)
[2021-05-02] MEDS: ATORVASTATIN 40 MG TAB PO SCH (22:53)
[2021-05-02] MEDS: NEPHROCAPS PO SCH (22:54)
[2021-05-03] MEDS ORDERED: INSULIN ASPART 100 UNITS/ML VIAL SC SCH
[2021-05-03] MEDS: INSULIN ASPART PER UNIT SC SCH ×6 (04:16→21:35)
[2021-05-03] MEDS: HEPARIN SOD 5,000 UNIT/0.5 ML VIAL SQ SCH ×3 (05:52→21:35)
[2021-05-03] MEDS: CALCIUM ACETATE 667 MG CAP/TAB PO SCH ×3 (07:53→15:29)
[2021-05-03] MEDS: METOPROLOL SUCC 50MG EXT REL TAB PO SCH ×2 (08:11→21:35)
[2021-05-03] MEDS ORDERED: SODIUM CHLORIDE 0.9% 1000ML 1,000 ML IV PRN (08:22)
[2021-05-03] MEDS ORDERED: HEPARIN SOD (PORCINE) 1000 UNIT/ML IV ONE (08:22)
[2021-05-03] MEDS ORDERED: EPOETIN ALFA 20,000 UNITS/ML VIAL IV SCH (08:45)
[2021-05-03] MEDS ORDERED: INSULIN GLARGINE SOLOSTAR 100 UNITS/ML 3 ML PEN SC SCH (09:00)
[2021-05-03] MEDS: LORazepam 0.5 MG TAB PO PRN (09:10)
[2021-05-03 09:58] LABS: Hematocrit (blood only) 23.3 % (42-52); Hemoglobin 7.5 g/dL (14.0-18.0); Mean Corpuscular Hemoglobin 29.1 pg (25-34); Mean Corpuscular Hgb Conc 32.2 g/dL (32-36); Mean Corpuscular Volume 90.3 fL (80-100); Mean Platelet Volume 8.9 fL (7.4-10.4); Nucleated RBC # (auto) 0.15 K/uL (0-0); Nucleated RBC % (auto) 1.4 %; Platelet Count 242 K/uL (130-400); RDW Coefficient of Variation 17.3 % (11.5-14.5); RDW Standard Deviation 55.8 fL (36.4-46.3); Red Blood Count 2.58 M/uL (4.7-6.1); White Blood Count 10.87 K/uL (4.8-10.8)
[2021-05-03 10:18] LABS: BUN Creatinine Ratio 5.6 (10-20); Calcium 9.3 mg/dl (8.5-10.1); Creatinine Clr Calc Pharmacy 17.6 ml/min; Est GFR (African American) 11.5 ml/min; Est GFR (Non-African American) 9.9 ml/min
--- NOTE | 2021-05-03 10:23 | Nephrology Progress Note ---
Date of Service May 03, 2021 Assessment & Plan (1) ESRD (end stage renal disease) on dialysis: Plan: he had HD 3.75 hr /8 w/ 5L UF. >HD today 2 hr, 2L target more if tolerated -eval for HD tomorrow -1.2L FR and dialysis diet to continue (2) Anemia of chronic disease: Plan: max dose fina w/ tx; daily hgb; needs repeat colonoscopy but refuses to prep historically (including during an admission here this fall); trans satn 04/02 at HD 34% (3) Volume overload: Plan: -as above (4) Nonadherence to medical treatment: Plan: w/ hx of repeatedly shortening HD txs AMA and with large IDWG. OP dialysis staff tell me he completed one full tx as OP in month prior to this admission. reasons he gives for coming off are variable > often hip, L knee pain; other times anxiety; other times unclear. have repeatedly advised him to f/u w/ OP PCP/ortho/pulm/cardiology/imaging/GI - he no shows these appts if he gets appt at all at least in March. frustrated at being asked about these at times. he is hopeful for txplt w/ [facility] but so far this has not motivated him in terms of adherence. not listed/ no eval yet. Admission and Anticipated Discharge Date Admission Date: May 02, 2021 Subjective states his breathing not much changed. cramps on tx last evening and came off 15 min early; tolerated 5L UF. willing to consider short tx today as long as no crampls. no changing pain mentioned today. refused labs this am - will get on HD; pt dissatisfied at times about his care > asking for water at change of shift and 20 min too long to wait; not sympathetic to change of shift or workers covering multiple rooms. Review of Systems Review of Systems: All systems reviewed & are unremarkable except as noted in Subjective Physical Exam Constitutional: well developed and well nourished sitting on side of bed on room air Eyes: EOM intact bilaterally ENMT: Ears: no external ear abnormality Nose: no external nose abnormality Mouth: + dry oral mucous membranes Neck: no nuchal rigidity Respiratory: normal respiratory effort Auscultation: + diminished lung sounds Cardiovascular: Rate/Rhythm: regular rate and regular rhythm Extremities: + AV fistula; no edema Gastrointestinal (Abdomen): Inspection/Auscultation: normal bowel sounds Percussion/Palpation: abdomen soft; abdomen nontender Musculoskeletal: Extremities: strength 5/5 throughout Skin: no rashes, warm and dry Psychiatric: Orientation: alert and oriented x 3 Affect: + irritable affect Results & Data ([facility]) Vital Signs (Past 12 Hours) Vital Signs Temp Pulse Pulse Resp BP Pulse Ox 05/03/21 08:00 80 05/03/21 07:18 36.8 C 79 16 150/83 H 05/03/21 04:16 37.2 C 84 16 180/72 H 95 05/03/21 00:00 85 05/02/21 23:31 37.3 C 85 19 178/79 H 99 Laboratory Results 05/03/21 09:23 05/03/21 05:51
[2021-05-03 10:43] LABS: Estimated Average Glucose 134 mg/dl; Hemoglobin A1C 6.3 % (4.5-5.6)
[2021-05-03] MEDS: HEPARIN SOD (PORCINE) 1000 UNIT/ML IV SCH ×2 (12:46→12:47)
[2021-05-03] MEDS: hydrALAZINE HCL 25 MG TAB PO SCH (12:59)
--- NOTE | 2021-05-03 13:12 | ENT Consultation ---
Date of Consultation May 03, 2021 Assessment & Plan (1) Acute serous otitis media, left ear: For left PE tube tomorrow. History of Present Illness Reason for Consultation: Hearing loss left ear. Attending Physician: Yvette Montero DO History of Present Illness This 41-year-old with diabetes and renal failure on dialysis was admitted via the ER. CT of head showed mastoid effusion. He was treated with 15 days of p.o. antibiotics for left otitis media without response. Continues to have hearing loss in the left ear. Allergies Allergy/AdvReac Type Severity Reaction Status Date / Time No Known Allergies Allergy Unknown Verified 03/15/21 14:41 Home Medications Medication Instructions Recorded Confirmed Type amlodipine 10 mg tablet 10 mg PO HS 06/11/19 05/02/21 History calcium acetate(phosphat bind) 667 1,334 mg PO AC 06/11/19 05/02/21 History mg tablet lisinopril 40 mg tablet 40 mg PO HS 06/11/19 05/02/21 History calcium carbonate 200 mg calcium 200 mg PO DAILY PRN 02/03/20 05/02/21 History (500 mg) chewable tablet (Tums) hydralazine 25 mg tablet 25 mg PO DAILY 02/03/20 05/02/21 History vitamin B complex-vitamin C-folic 1 tab PO PM 02/03/20 05/02/21 History acid 0.8 mg tablet (Myrna-Bello) albuterol sulfate 90 mcg/actuation 2 puff INHALATION Q6 PRN 10/13/20 05/02/21 History aerosol inhaler atorvastatin 40 mg tablet 40 mg PO PM 10/13/20 05/02/21 History insulin aspart U-100 100 unit/mL 16 unit SUBCUT AC 10/13/20 05/02/21 History (3 mL) subcutaneous pen (Novolog Flexpen U-100 Insulin aspart) lorazepam 1 mg tablet 1 mg PO UD 10/13/20 05/02/21 History torsemide 100 mg tablet 100 mg PO PM 10/13/20 05/02/21 History trazodone 50 mg tablet 50 mg PO HS 12/26/20 05/02/21 History aspirin 81 mg chewable tablet 81 mg PO QPM 01/29/21 05/02/21 History insulin glargine 100 unit/mL (3 56 unit SUBCUT QAM 01/29/21 05/02/21 History mL) subcutaneous pen (Basaglar KwikPen U-100 Insulin) metoprolol succinate 50 mg 50 mg PO BID 05/02/21 05/02/21 History tablet,extended release 24 hr Patient History Medical History A-V fistula right Anemia Chronic respiratory failure with hypoxia Chronic systolic CHF (congestive heart failure) Diabetes IDDM (Type 1 per records) Dyslipidemia End stage renal disease diaylsis - M,W,F ([facility], [place]) History of colon polyps Hypertension NICM (nonischemic cardiomyopathy) Non compliance w medication regimen Obesity On home O2 on 2-3L at rest, up to 5L w/ exertion Poor historian Sarcoidosis per records Seizure disorder remote hx (2007) in setting of hypoglycemia (?ETOH related per records), no issues since Surgical History History of cardiac cath History of colonoscopy 01/25/21 [facility] History of esophagogastroduodenoscopy (EGD) 01/22/21 [facility] History of lung surgery removal of benign nodule History of surgery removal of permacath History of vascular access device permacath insertion Hx of biopsy kidney bx PONV (postoperative nausea and vomiting) Status post creation of arteriovenous fistula right: 07/15/17: MAC sedation at [facility] Family History Father Hypertension Social History Smoking Status: Former smoker Tobacco Type: Cigarettes Years Smoked: 2; Second Hand Exposure: No; Hx Alcohol Use: No Hx Substance Use: No Preferred Language: Mohawk Communication Ability: Effective Substitute Bus Driver Required: No Beliefs That Will Affect Care: None Current Living Situation: Alone Current Living Situation Comment: Roommate Other Information That Helps Us Care for You: No Feels Safe at Home: Yes Safety Concerns: Feels Safe At This Time Assistive Devices: Glasses and Oxygen - Continuous Physical Exam Constitutional: WD/WN, vitals as above Eyes: PERRL, conjunctivae normal, anicteric sclerae ENMT: external ear and nose normal, oropharynx normal Ears: + TM abnormality (Left TM dull, fluid) Neck: trachea midline, no thyromegaly Results & Data ([facility]) Vital Signs (Past 12 Hours) Vital Signs Temp Pulse Pulse Pulse Resp BP BP 05/03/21 09:40 79 158/85 H 05/03/21 09:25 37.1 C 81 05/03/21 08:00 80 05/03/21 07:18 36.8 C 79 16 150/83 H 05/03/21 04:16 37.2 C 84 16 180/72 H Pulse Ox 05/03/21 09:40 05/03/21 09:25 05/03/21 08:00 05/03/21 07:18 05/03/21 04:16 95
--- NOTE | 2021-05-03 13:33 | Pharmacy Report ---
Pharmacy Glycemic Short Note 2 - Date of Service May 03, 2021 - Glycemic Short BSG Results (Last 24 hours): 05/02/21 05/02/21 05/02/21 18:47 18:48 18:49 Glucose POC Glucose 322 H* 317 H* 313 H* 05/02/21 05/03/21 05/03/21 22:35 04:02 04:05 Glucose POC Glucose 200 H 315 H* 335 H* 05/03/21 05/03/21 05/03/21 05:51 07:31 12:11 Glucose 106 H POC Glucose 166 H 77 OUTPATIENT ANTIDIABETIC REGIMEN: * Lantus 56 units SC AM * Novolog 16 units SC AC * HbA1c pending ASSESSMENT: 05/03/21 * Pt has received 53 units of insulin over the past 24hrs * 50 units of basal with Lantus * 3 units of bolus with NovoLog * BSGs severe hyperglycemia last night on admission, trending downwards with SQ basal bolus insulin regimen per previous admission. * BSGs continuing to trend downwards. Will empirically decrease insulin dosing to prevent low tomorrow. 05/02/21 * 41 yo M admitted due to shortness of breath. Patient has ESRD on HD MWF. Pharmacy has been consulted to assist with inpatient glycemic management. Patient is known to this service. * No insulin administered today prior to admission. BSG upon arrival to ED was 156 mg/dL. Gave a reduced home dose of Lantus 30 units x 1. Will add a Lantus scale this evening in case patient is hyperglycemic. * Novolog will be started based on previous admission data. Will add overnight checks for the first night. Targeting a goal range of 110-140 mg/dL. * Patient scheduled to have HD today. PLAN FOR INPATIENT GLYCEMIC CONTROL: * Basal insulin * Lantus 30 units SC daily * Bolus insulin * NovoLog per scale ACHS or Q6hrs while NPO * Goal Range: Low 110 mg/dL - High 140 mg/dL * Correction Factor: 25 mg/dL/unit * Nutritional / Prandial insulin per carb ratio of 1 unit per 6 grams CHO consumed PLAN FOR DISCHARGE: * To be determined
[2021-05-03] MEDS: CEFEPIME 1,000 MG in SYRINGE 0 ML IV SCH (14:35)
--- NOTE | 2021-05-03 15:04 | Anesthesiology Consultation ---
Date of Service May 03, 2021 Assessment & Plan Chart Review Chart Review: Patient NOT seen in Pre Admission Testing Consults Requested none Additional Notes Patient admitted with acute on chronic respiratory failure believed to be secondary to volume overload. PMH significant for 3-5 L oxygen dependence at baseline, HD dependent renal failure, nonischemic cardiomyopathy with NSTEMI in 07/2020, CHF, sarcoidosis, DM type 1, HTN, and HLD. Nephrology team in the process of trying to remove fluid via dialysis. Admission CT of head showed mastoid effusion and ENT plans left PE tube placement for acute serous otitis media. Review of notes indicates that patient is still being actively dialyzed for treatment of volume overload. Primary team and assigned anesthesiologist will need to re-review the case and the patient's respiratory status tomorrow. The planned procedure and associated anesthesia should only proceed once the patient's volume status is full optimized and back to baseline. History Surgery Operation Date: 05/04/21 07:15 Proposed Procedures p Left Tube Insertion - Irma Jackman MD Height/Weight Height: 5 ft 10 in Weight: 93.5 kg Allergies Allergy/AdvReac Type Severity Reaction Status Date / Time No Known Allergies Allergy Unknown Verified 03/15/21 14:41 Medications Home Medications Medication Instructions Recorded Confirmed Last Taken amlodipine 10 mg tablet 10 mg PO HS 06/11/19 05/02/21 01/17/21 calcium acetate(phosphat bind) 667 1,334 mg PO AC 06/11/19 05/02/21 01/18/21 mg tablet lisinopril 40 mg tablet 40 mg PO HS 06/11/19 05/02/21 01/17/21 calcium carbonate 200 mg calcium 200 mg PO DAILY PRN 02/03/20 05/02/21 Unknown (500 mg) chewable tablet (Tums) hydralazine 25 mg tablet 25 mg PO DAILY 02/03/20 05/02/21 01/18/21 vitamin B complex-vitamin C-folic 1 tab PO PM 02/03/20 05/02/21 01/17/21 acid 0.8 mg tablet (Myrna-Bello) albuterol sulfate 90 mcg/actuation 2 puff INHALATION Q6 PRN 10/13/20 05/02/21 Unknown aerosol inhaler atorvastatin 40 mg tablet 40 mg PO PM 10/13/20 05/02/21 01/17/21 insulin aspart U-100 100 unit/mL 16 unit SUBCUT AC 10/13/20 05/02/21 01/18/21 (3 mL) subcutaneous pen (Novolog 16 units Flexpen U-100 Insulin aspart) lorazepam 1 mg tablet 1 mg PO UD 10/13/20 05/02/21 Unknown torsemide 100 mg tablet 100 mg PO PM 10/13/20 05/02/21 01/17/21 trazodone 50 mg tablet 50 mg PO HS 12/26/20 05/02/21 01/17/21 aspirin 81 mg chewable tablet 81 mg PO QPM 01/29/21 05/02/21 Unknown insulin glargine 100 unit/mL (3 56 unit SUBCUT QAM 01/29/21 05/02/21 Unknown mL) subcutaneous pen (Basaglar KwikPen U-100 Insulin) metoprolol succinate 50 mg 50 mg PO BID 05/02/21 05/02/21 Unknown tablet,extended release 24 hr Active Medications Generic Name Dose Route Start Last Admin Trade Name Matthiasq PRN Reason Stop Dose Admin Acetaminophen 650 mg 05/02/21 14:14 05/02/21 15:59 Acetaminophen 325 Mg Tab PO 06/01/21 14:13 650 mg Q4H PRN Administration Pain or Fever Amlodipine Besylate 10 mg 05/02/21 21:00 05/02/21 22:53 Amlodipine Besylate 5 Mg Tab PO 06/01/21 20:59 10 mg HS CHENG Administration Aspirin 81 mg 05/02/21 21:00 05/02/21 22:53 Aspirin 81 Mg Chew PO 06/01/21 20:59 81 mg QPM CHENG Administration Atorvastatin Calcium 40 mg 05/02/21 21:00 05/02/21 22:53 Atorvastatin 40 Mg Tab PO 06/01/21 20:59 40 mg PM CHENG Administration Calcium Acetate 1,334 mg 05/02/21 16:30 05/03/21 12:59 Calcium Acetate 667 Mg Cap/Tab PO 06/01/21 16:29 Not Given AC CHENG Epoetin Terrell 20,000 units 05/03/21 08:45 05/03/21 10:49 Epoetin Terrell 20,000 Units/Ml Vial IV 05/03/21 18:00 20,000 units TODAY@0845 CHENG Administration Heparin Sodium (Porcine) 5,000 units 05/02/21 14:45 05/03/21 14:35 Heparin Sod 5,000 Unit/0.5 Ml Vial SQ 06/01/21 14:44 5,000 units Q8 CHENG Administration Hydralazine HCl 25 mg 05/02/21 14:30 05/03/21 12:59 Hydralazine Hcl 25 Mg Tab PO 06/01/21 14:29 25 mg DAILY CHENG Administration Cefepime HCl 1,000 mg/ Syringe 11.3 mls @ 5.5 mls/min 05/03/21 14:00 05/03/21 14:35 IV 05/10/21 13:59 5.5 mls/min Q24H CHENG Administration Protocol Insulin Aspart 0 units 05/02/21 21:00 05/03/21 13:13 Insulin Aspart Per Unit SC 06/01/21 20:59 7 units ACHS CHENG Administration Insulin Glargine 30 units 05/03/21 09:00 05/03/21 12:02 Insulin Glargine Solostar 100 Units/Ml 3 Ml Pen SC 06/02/21 08:59 30 units DAILY CHENG Administration Protocol Lisinopril 40 mg 05/02/21 21:00 05/02/21 22:53 Lisinopril 40 Mg Tab PO 06/01/21 20:59 40 mg HS CHENG Administration Lorazepam 0.5 mg 05/02/21 18:23 05/03/21 09:10 Lorazepam 0.5 Mg Tab PO 06/01/21 18:22 0.5 mg Q8H PRN Administration Anxiety Metoprolol Succinate 50 mg 05/02/21 14:00 05/03/21 08:11 Metoprolol Succ 50mg Ext Rel Tab PO 06/01/21 13:59 50 mg BID CHENG Administration Miscellaneous 1 ea 05/02/21 21:00 05/02/21 22:54 Remove Lidoderm Patch N/A 06/01/21 20:59 1 ea DAILY@2100 CHENG Administration Torsemide 100 mg 05/02/21 21:00 05/02/21 22:52 Torsemide 100 Mg Tab PO 06/01/21 20:59 100 mg PM CHENG Administration Trazodone HCl 50 mg 05/02/21 21:00 05/02/21 22:52 Trazodone Hcl 50 Mg Tab PO 01/07/22 20:59 50 mg HS CHENG Administration Vitamin B Complex/Folic Acid 1 cap 05/02/21 21:00 05/02/21 22:54 Nephrocaps PO 06/01/21 20:59 1 cap PM CHENG Administration Past Medical History Medical History A-V fistula right Anemia Chronic respiratory failure with hypoxia Chronic systolic CHF (congestive heart failure) Diabetes IDDM (Type 1 per records) Dyslipidemia End stage renal disease diaylsis - M,W,F ([facility], [place]) History of colon polyps Hypertension NICM (nonischemic cardiomyopathy) Non compliance w medication regimen Obesity On home O2 on 2-3L at rest, up to 5L w/ exertion Poor historian Sarcoidosis per records Seizure disorder remote hx (2007) in setting of hypoglycemia (?ETOH related per records), no issues since Past Family History Family History Father Hypertension Past Surgical History Surgical History History of cardiac cath History of colonoscopy 01/25/21 [facility] History of esophagogastroduodenoscopy (EGD) 01/22/21 [facility] History of lung surgery removal of benign nodule History of surgery removal of permacath History of vascular access device permacath insertion Hx of biopsy kidney bx PONV (postoperative nausea and vomiting) Status post creation of arteriovenous fistula right: 07/15/17: MAC sedation at [facility] Social History Smoking Status: Former smoker tobacco type: smokeless tobacco Hx Alcohol Use: No Hx Substance Use: No substance use type: does not use Physical Exam Vital Signs Last Vital Signs Temp 37.1 C 05/03/21 09:25 Pulse 79 05/03/21 09:40 Resp 16 05/03/21 07:18 BP 158/85 H 05/03/21 09:40 Pulse Ox 95 05/03/21 04:16 Testing Laboratory Results 05/03/21 09:23 05/03/21 05:51 PT 9.8 Seconds (9.0-12.0) 05/02/21 07:31 INR 1.0 (0.9-1.1) 05/02/21 07:31 APTT 24.8 Seconds (21.0-31.0) 05/02/21 07:31 Hemoglobin A1c 6.3 % (4.5-5.6) H 05/03/21 05:51 05/02/21 09:30 Aerobic Blood Culture - Preliminary Blood No growth in Aerobic bottle after 24 hours. Anaerobic Blood Culture - Preliminary No growth in Anaerobic bottle after 24 hours. 05/03/21 05/03/21 05/03/21 12:11 07:31 04:05 POC Glucose 77 166 H 335 H* 05/03/21 04:02 POC Glucose 315 H* Electrocardiogram Date: 05/02/21 Normal sinus rhythm (89) Possible Left atrial enlargement Borderline ECG When compared with ECG of 19-APR-2021 05:13, No significant change was found Chest X-Ray Date: 05/02/21 IMPRESSION: Intermixed airspace and interstitial opacities have progressed from prior suggestive of multifocal pneumonia. Pulmonary edema could appear similarly. Echocardiogram Date: 08/22/20 EF: 45-49% Large sized apical, inferior, posterior, and lateral wall motion abnormality with hypokinesis of the segments. No significant valvular disease. Cardiac Catheterization Date: 08/22/20 Coronary arteries have mild non-obstructive disease with minor luminal i rregularities.
--- NOTE | 2021-05-03 18:03 | Hospitalist Progress Note ---
Date of Service May 03, 2021 Assessment & Plan (1) Volume overload: Plan: Noncompliance with HD sessions, however patient has a history of nonischemic cardiomyopathy, also. Additionally, with further questioning, he reports having chronic shortness of breath prior to being on hemodialysis. Will ask cardiology to evaluate as patient reports no improvement with respirations or hypoxia despite 5 L ultrafiltrate removed with hemodialysis yesterday. Notably he has been noncompliant with outpatient cardiology visits. (2) Pneumonia: Plan: Question of pneumonia, however this is more likely pulmonary edema. For now with ongoing mastoiditis infection continue antibiotics. Trend pro calcitonin and monitor respiratory status. (3) NICM (nonischemic cardiomyopathy): Plan: Cardiology consult, defer to them for need for repeat echo (4) ESRD (end stage renal disease) on dialysis: Plan: Hemodialysis yesterday with 5 L ultrafiltrate removed. Cramping noted at end of session. Discussed this with patient who states he would rather have the cramping as long as they get all the fluid off. Repeat hemodialysis session per nephrology tomorrow. (5) Chronic respiratory failure with hypoxia: Plan: Back to baseline level of hypoxia today after hemodialysis session yesterday. However, patient reports no improvement in respiratory status or breathing. Asked to see a sharepoint solutions developer regarding a history of sarcoid. We discussed that pulmonary edema is present and after treating this he should follow-up as outpatient with pulmonology with Ap. He is already scheduled for PFTs in April. (6) Mastoiditis of left side: Plan: -left mastoiditis noted on head CT in the setting of hearing loss for the last 2 months. ENT consulted and patient is set to receive left myringotomy tube tomorrow. Continue antibiotics. (7) Sarcoidosis: Plan: -CT chest shows increase in size of mediastinal and bilateral hilar lymph nodes since prior CT -will need outpatient follow-up with pulmonology -PFTs in Apr (8) Hypertension: Plan: chronic, at goal-Continue current medical therapy (9) DM type 1 (diabetes mellitus, type 1): Plan: -Hgb A1c 6.4 02/2021 -Glycemic pharmacy consulted while admitted and glucose remains stable on current insulin dosing protocol. (10) Back pain: Plan: Tylenol PRN, PT/OT as outpatient recommended. Likely MSK pain related to compensation and guarding of left side recently. Overall appears physically deconditioned. (11) Anemia of chronic disease: Plan: -Anemia due to CKD and chronic comorbidities. Currently at baseline, no indication for transfusion at this time. (12) DVT prophylaxis: Plan: -SQ heparin Full Dispo-to home when medically stable and breathing is improved. Yvette Montero DO [facility] Hospitalist Admission and Anticipated Discharge Date Admission Date: May 02, 2021 Subjective 41 yo M admitted with worsening hypoxia, 3LPM at home -cramping with HD treatment yesterday,5 L was removed -patient is reporting "back pain" describes sciatica on the right lower back radiating down the right leg -reports breathing is unchanged -reports on occasion coughing up "blood clots" -h/o sarcoid and reports wanting to see a lung doctor, has had some trouble with connecting with [facility] as outpatient. -denies any weight gain Review of Systems Review of Systems: All systems were reviewed and negative except as indicated in subjective above. Physical Exam Physical Exam: CONSTITUTIONAL: WNWD, vitals as above, generally well- appearing, NAD EYES: normal conjunctivae, no scleral icterus ENT: external ear and nose normal, MMM, supplemental oxygen in place. NECK: trachea midline RESPIRATORY: clear to auscultation bilaterally, no crackles, rales or wheezes, normal respiratory effort CARDIOVASCULAR: regular rate and rhythm, S1 and 2 heard without murmurs, gallops or rubs, no JVD, no peripheral edema CHEST: inspection of chest was normal GASTROINTESTINAL: soft, nontender,ND, no guarding MUSCULOSKELETAL: strength 5/5 throughout, head is normocephalic and atraumatic SKIN: warm and dry, no rashes NEUROLOGIC: no facial palsy, no dysarthria. CN 2-12 grossly intact, no sensory deficit, normal cognition, normal speech, no tremor, no gross focal deficits. PSYCHIATRIC: alert cooperative and oriented to person, place and time. Results & Data Results & Data ([facility]) Vital Signs (Past 12 Hours) Vital Signs Temp Pulse Pulse Pulse Resp BP BP 05/03/21 15:48 36.9 C 79 20 164/85 H 05/03/21 15:06 76 05/03/21 11:43 36.4 C L 79 82 149/81 H 05/03/21 11:20 83 165/74 H 05/03/21 11:00 77 135/65 05/03/21 10:40 76 151/78 H 05/03/21 10:20 81 135/66 05/03/21 10:00 79 132/74 05/03/21 09:40 79 158/85 H 05/03/21 09:25 37.1 C 81 05/03/21 08:00 80 05/03/21 07:18 36.8 C 79 16 150/83 H Pulse Ox 05/03/21 15:48 94 05/03/21 15:06 05/03/21 11:43 05/03/21 11:20 05/03/21 11:00 05/03/21 10:40 05/03/21 10:20 05/03/21 10:00 05/03/21 09:40 05/03/21 09:25 05/03/21 08:00 05/03/21 07:18 Laboratory Results Short CBC 05/03/21 Range/Units 09:23 WBC 10.87 H (4.8-10.8) K/uL Hgb 7.5 L (14.0-18.0) g/dL Hct 23.3 L (42-52) % Plt Count 242 (130-400) K/uL BMP 05/03/21 05:51 Sodium 138 Potassium 4.0 Chloride 102 Carbon Dioxide 30 BUN 36 H Creatinine 6.46 H* D Glucose 106 H Calcium 9.3 Medications Administered Current Inpatient Medications Acetaminophen (Acetaminophen 325 Mg Tab) 650 mg PO Q4H PRN PRN Reason: Pain or Fever Stop: 06/01/21 14:13 Last Admin: 05/02/21 15:59 Dose: 650 mg Documented by: Amlodipine Besylate (Amlodipine Besylate 5 Mg Tab) 10 mg PO HS CHENG Stop: 06/01/21 20:59 Last Admin: 05/02/21 22:53 Dose: 10 mg Documented by: Aspirin (Aspirin 81 Mg Chew) 81 mg PO QPM CHENG Stop: 06/01/21 20:59 Last Admin: 05/02/21 22:53 Dose: 81 mg Documented by: Atorvastatin Calcium (Atorvastatin 40 Mg Tab) 40 mg PO PM CHENG Stop: 06/01/21 20:59 Last Admin: 05/02/21 22:53 Dose: 40 mg Documented by: Calcium Acetate (Calcium Acetate 667 Mg Cap/Tab) 1,334 mg PO AC CHENG Stop: 06/01/21 16:29 Last Admin: 05/03/21 15:29 Dose: 1,334 mg Documented by: Calcium Acetate (Calcium Acetate 667 Mg Cap/Tab) 1,334 mg PO PRN PRN PRN Reason: WITH SNACKS Stop: 06/01/21 14:45 Dextrose (Dextrose 50% 50 Ml Syringe) 25 - 50 ml IV UD PRN; Protocol PRN Reason: Hypoglycemia Protocol Stop: 06/01/21 14:59 Glucagon (Glucagon For Inj 1 Mg Vial) 1 mg IM UD PRN; Protocol PRN Reason: Hypoglycemia Protocol Stop: 06/01/21 14:59 Glucose (Glucose 40% Gel 15 Gm Tube) 15 - 30 gm PO UD PRN; Protocol PRN Reason: Hypoglycemia Protocol Stop: 06/01/21 14:59 Glucose (Glucose 10 Tabs/Tube) 4 - 8 tabs PO UD PRN; Protocol PRN Reason: Hypoglycemia Protocol Stop: 06/01/21 14:59 Heparin Sodium (Porcine) (Heparin Sod 5,000 Unit/0.5 Ml Vial) 5,000 units SQ Q8 [facility] Stop: 06/01/21 14:44 Last Admin: 05/03/21 14:35 Dose: 5,000 units Documented by: Hydralazine HCl (Hydralazine Hcl 25 Mg Tab) 25 mg PO DAILY [facility] Stop: 06/01/21 14:29 Last Admin: 05/03/21 12:59 Dose: 25 mg Documented by: Cefepime HCl 1,000 mg/ Syringe 11.3 mls @ 5.5 mls/min IV Q24H [facility]; Protocol Stop: 05/10/21 13:59 Last Admin: 05/03/21 14:35 Dose: 5.5 mls/min Documented by: Insulin Aspart (Insulin Aspart Per Unit) 0 units SC ACHS [facility] Stop: 06/01/21 20:59 Last Admin: 05/03/21 17:08 Dose: 5 units Documented by: Insulin Glargine (Insulin Glargine Solostar 100 Units/Ml 3 Ml Pen) 30 units SC DAILY [facility]; Protocol Stop: 06/02/21 08:59 Last Admin: 05/03/21 12:02 Dose: 30 units Documented by: Lisinopril (Lisinopril 40 Mg Tab) 40 mg PO HS [facility] Stop: 06/01/21 20:59 Last Admin: 05/02/21 22:53 Dose: 40 mg Documented by: Lorazepam (Lorazepam 0.5 Mg Tab) 0.5 mg PO Q8H PRN PRN Reason: Anxiety Stop: 06/01/21 18:22 Last Admin: 05/03/21 09:10 Dose: 0.5 mg Documented by: Metoprolol Succinate (Metoprolol Succ 50mg Ext Rel Tab) 50 mg PO BID CHENG Stop: 06/01/21 13:59 Last Admin: 05/03/21 08:11 Dose: 50 mg Documented by: Miscellaneous (Remove Lidoderm Patch) 1 ea N/A DAILY@2100 [facility] Stop: 06/01/21 20:59 Last Admin: 05/02/21 22:54 Dose: 1 ea Documented by: Miscellaneous (Carbohydrates For Hypoglycemia ) 15 - 30 gm PO UD PRN PRN Reason: Hypoglycemia Treatment Stop: 06/01/21 14:59 Miscellaneous Information (Pharmacy Glycemic Mgmt Consult) 1 ea N/A UD PRN PRN Reason: Consult Stop: 06/01/21 14:44 Torsemide (Torsemide 100 Mg Tab) 100 mg PO PM CHENG Stop: 06/01/21 20:59 Last Admin: 05/02/21 22:52 Dose: 100 mg Documented by: Trazodone HCl (Trazodone Hcl 50 Mg Tab) 50 mg PO HS [facility] Stop: 06/01/21 20:59 Last Admin: 05/02/21 22:52 Dose: 50 mg Documented by: Vitamin B Complex/Folic Acid (Nephrocaps) 1 cap PO PM CHENG Stop: 06/01/21 20:59 Last Admin: 05/02/21 22:54 Dose: 1 cap Documented by:
[2021-05-03] MEDS: TORSEMIDE 100 MG TAB PO SCH (21:34)
[2021-05-03] MEDS: ASPIRIN 81 MG CHEW PO SCH (21:34)
[2021-05-03] MEDS: lisinopril 40 MG TAB PO SCH (21:34)
[2021-05-03] MEDS: amLODIPine BESYLATE 5 MG TAB PO SCH (21:34)
[2021-05-03] MEDS: traZODone HCL 50 MG TAB PO SCH (21:34)
[2021-05-03] MEDS: NEPHROCAPS PO SCH (21:34)
[2021-05-03] MEDS: ATORVASTATIN 40 MG TAB PO SCH (21:34)
[2021-05-04] MEDS ORDERED: DEXTROSE 50% 50 ML SYRINGE IV STA (05:51)
[2021-05-04] MEDS ORDERED: PROPOFOL IV EMULSION 10 MG/ML 20 ML VIAL IV ONE (06:47)
[2021-05-04] MEDS ORDERED: ONDANSETRON INJ 2 MG/ML 2 ML VIAL ONE (06:47)
[2021-05-04] MEDS ORDERED: fentaNYL citrate 100 MCG/2 ML VIAL ONE (06:47)
[2021-05-04] MEDS ORDERED: MIDAZOLAM HCL 1 MG/ML 2ML VIAL ONE (06:47)
[2021-05-04] MEDS ORDERED: LIDOCAINE 2% 2 ML VIAL/AMP(20MG/ML) INFIL ONE (06:47)
[2021-05-04] MEDS ORDERED: SODIUM CHLORIDE 0.9% 1000ML 1,000 ML IV PRN (06:54)
[2021-05-04] MEDS ORDERED: EPOETIN ALFA 20,000 UNITS/ML VIAL IV ONE (07:00)
--- NOTE | 2021-05-04 07:03 | History & Physical Bridge Note ---
Date of Service May 04, 2021 History & Physical Bridge Note I have examined the patient, reviewed the History & Physical and in the interval since the performance of the History & Physical I have noted the following changes of clinical significance: no changes noted
[2021-05-04] MEDS ORDERED: OFLOXACIN 0.3% 75 DROPS/5 ML BTL ONE (07:05)
--- NOTE | 2021-05-04 07:38 | Operative Report ---
PG Post Operative Report Pre & Post Diagnosis Operation Date: 05/04/21 07:15 Pre-Op Diagnosis: Acute serous otitis media, left ear Post-Op Diagnosis: Acute serous otitis media, left ear I identified the patient and participated in the time-out.: Yes Procedure Operation Date: 05/04/21 07:15 Actual Procedures p Left Myringotomy Tube Insertion - Irma Jackman MD Surgeon Irma Jackman MD Survey Cad Technician NONE Estimated Blood Loss 1 Findings Consistent with Post-Op Diagnosis FLUID Specimens none Anesthesia Type General Complications none Description of Procedure Right paparella tube inserted under microscopy , myringotomy insion with blade, suctioned fluid, inserted Paparella tube with alligator and acevedo. I attest to the content of the Intraoperative Record and any orders documented therein. Any exceptions are noted below.
[2021-05-04] MEDS ORDERED: ALBUTEROL 0.083% NEBU SOLN 3 ML VIAL INH PRN (07:54)
[2021-05-04] MEDS ORDERED: ATROPINE SULFATE 0.1 MG/ML 10ML SYR IV PRN (07:54)
[2021-05-04] MEDS ORDERED: ONDANSETRON INJ 2 MG/ML 2 ML VIAL IV PRN (07:54)
[2021-05-04] MEDS: HEPARIN SOD 5,000 UNIT/0.5 ML VIAL SQ SCH ×3 (08:09→21:09)
[2021-05-04] MEDS: CALCIUM ACETATE 667 MG CAP/TAB PO SCH ×3 (09:08→17:34)
--- NOTE | 2021-05-04 09:17 | Nephrology Progress Note ---
Date of Service May 04, 2021 Assessment & Plan (1) ESRD (end stage renal disease) on dialysis: Plan: he had HD 3.75 hr 12/8 w/ 5L UF. then 2.2L UF yesterday w/ 2L tx. 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 OP dialysis staff tell me he completed one full tx as OP in month prior to this admission. reasons he gives for coming off are variable > often hip, L knee pain; other times anxiety; other times unclear. have repeatedly advised him to f/u w/ OP PCP/ortho/pulm/cardiology/imaging/GI - he no shows these appts if he gets appt at all at least in March. frustrated at being asked about these at times. he is hopeful for txplt w/ [facility] but so far this has not motivated him in terms of adherence. not listed/ no eval yet. Admission and Anticipated Discharge Date Admission Date: May 02, 2021 Subjective seen on rounds at 0700 in holding area > for ENT procedure this am. some lower/symptomatic BG ON. breathing "about jes same;" few cramps late in tx yesterday Review of Systems Review of Systems: All systems reviewed & are unremarkable except as noted in Subjective Physical Exam Constitutional: well developed and well nourished Eyes: EOM intact bilaterally ENMT: Ears: no external ear abnormality Nose: no external nose abnormality Mouth: + dry oral mucous membranes Neck: no nuchal rigidity Respiratory: normal respiratory effort Auscultation: + diminished lung soun ds Cardiovascular: Rate/Rhythm: regular rate and regular rhythm Extremities: + AV fistula; no edema Gastrointestinal (Abdomen): Inspection/Auscultation: normal bowel sounds Percussion/Palpation: abdomen soft; abdomen nontender Musculoskeletal: Extremities: strength 5/5 throughout Skin: no rashes, warm and dry Psychiatric: Orientation: alert and oriented x 3 Affect: + flat affect Results & Data ([facility]) Vital Signs (Past 12 Hours) Vital Signs Temp Pulse Pulse Pulse Resp BP Pulse Ox 05/04/21 08:48 36.7 C 73 18 147/77 H 92 05/04/21 08:35 24 144/72 H 95 05/04/21 08:25 36.5 C 72 24 144/72 H 95 05/04/21 08:15 70 20 139/75 96 05/04/21 08:05 74 22 139/73 93 05/04/21 07:55 72 17 147/80 H 98 05/04/21 07:45 36.6 C 73 12 L 12 140/82 96 05/04/21 06:39 37.2 C 71 20 149/77 H 95 05/04/21 03:42 36.8 C 77 20 96 05/04/21 00:12 36.6 C 73 18 156/77 H 97 05/03/21 23:02 81 Laboratory Results 05/03/21 09:23 05/03/21 05:51
--- NOTE | 2021-05-04 09:38 | Anesthesiology Progress Note ---
Date of Service May 04, 2021 Anesthesia Post Procedure Vital Signs Vital Signs: Temp Pulse Pulse Pulse Resp BP BP 05/04/21 09:28 72 20 151/67 H 05/04/21 08:48 36.7 C 73 18 147/77 H 05/04/21 08:35 24 144/72 H 05/04/21 08:25 36.5 C 72 24 144/72 H 05/04/21 08:15 70 20 139/75 05/04/21 08:05 74 22 139/73 05/04/21 07:55 72 17 147/80 H 05/04/21 07:45 36.6 C 73 12 L 12 140/82 05/04/21 06:39 37.2 C 71 20 149/77 H 05/04/21 03:42 36.8 C 77 20 05/04/21 00:12 36.6 C 73 18 156/77 H 05/03/21 23:02 81 05/03/21 20:01 37.1 C 79 18 146/74 H 05/03/21 15:48 36.9 C 79 20 164/85 H 05/03/21 15:06 76 05/03/21 11:43 36.4 C L 79 82 149/81 H 05/03/21 11:20 83 165/74 H 05/03/21 11:00 77 135/65 05/03/21 10:40 76 151/78 H 05/03/21 10:20 81 135/66 05/03/21 10:00 79 132/74 05/03/21 09:40 79 158/85 H Pulse Ox 05/04/21 09:28 05/04/21 08:48 92 05/04/21 08:35 95 05/04/21 08:25 95 05/04/21 08:15 96 05/04/21 08:05 93 05/04/21 07:55 98 05/04/21 07:45 96 05/04/21 06:39 95 05/04/21 03:42 96 05/04/21 00:12 97 05/03/21 23:02 05/03/21 20:01 91 05/03/21 15:48 94 05/03/21 15:06 05/03/21 11:43 05/03/21 11:20 05/03/21 11:00 05/03/21 10:40 05/03/21 10:20 05/03/21 10:00 05/03/21 09:40 Pain Intensity Generalized: Pain Intensity: 0 Transfer of Care Handoff Completed per policy Notes Mental Status: alert / awake / arousable Patient Amnestic to Procedure: Yes Nausea / Vomiting: adequately controlled Pain: adequately controlled Airway Patency, RR, SpO2: stable & adequate BP & HR: stable & adequate Hydration State: stable & adequate Anesthetic Complications: no major complications apparent
--- NOTE | 2021-05-04 09:55 | Cardiology Consultation ---
Date of Consultation May 04, 2021 Assessment & Plan (1) Volume overload: (2) ESRD (end stage renal disease) on dialysis: (3) Chronic systolic CHF (congestive heart failure): (4) NICM (nonischemic cardiomyopathy): (5) Sarcoidosis: (6) Hypoxia: 41-year-old patient presents with shortness of breath secondary to volume overload, noncompliance with hemodialysis, and anemia of chronic disease. 8 L volume removal for the past 48 hours with plans for hemodialysis today. Concurrently being treated for acute left-sided mastoiditis. Myringotomy tubes placed today without complication. Continue antibiotic therapy. Update resting 2D transthoracic echocardiogram for reassessment of LV systolic function. Continue current cardiovascular medications including lisinopril, metoprolol succinate, low-dose aspirin, statin therapy, hydralazine and amlodipine. Discussed importance of compliance with current medications and dialysis treatments. History of Present Illness Reason for Consultation: Fluid overload with heart failure Requesting Physician: Dr. Montero Attending Physician: Yvette Montero, History of Present Illness 41-year-old patient presented to the emergency department with shortness of breath. History of nonischemic cardiomyopathy with mild LV systolic dysfunction, sarcoidosis, nonobstructive coronary disease, end-stage renal disease on hemodialysis, and noncompliance. Patient admits to reducing the frequency of dialysis treatments. He was dialyzed last 2 days with removal of approximately 8 L of fluid. Respiratory status improving. He was evaluated earlier this year for acute decompensated heart failure and mild nonischemic cardiomyopathy. Cardiac catheterization performed in [facility] demonstrating mild nonobstructive coronary disease. Currently resting comfortably. Notes discomfort behind his left ear related to mastoiditis. Myringotomy tube inserted this morning. Denies chest discomfort, orthopnea, PND, or lower extremity edema. Scheduled for dialysis treatment today. Telemetry reviewed revealing sinus rhythm. Allergies Allergy/AdvReac Type Severity Reaction Status Date / Time No Known Allergies Allergy Unknown Verified 03/15/21 14:41 Home Medications Medication Instructions Recorded Confirmed Type amlodipine 10 mg tablet 10 mg PO HS 06/11/19 05/02/21 History calcium acetate(phosphat bind) 667 1,334 mg PO AC 06/11/19 05/02/21 History mg tablet lisinopril 40 mg tablet 40 mg PO HS 06/11/19 05/02/21 History calcium carbonate 200 mg calcium 200 mg PO DAILY PRN 02/03/20 05/02/21 History (500 mg) chewable tablet (Tums) hydralazine 25 mg tablet 25 mg PO DAILY 02/03/20 05/02/21 History vitamin B complex-vitamin C-folic 1 tab PO PM 02/03/20 05/02/21 History acid 0.8 mg tablet (Myrna-Bello) albuterol sulfate 90 mcg/actuation 2 puff INHALATION Q6 PRN 10/13/20 05/02/21 History aerosol inhaler atorvastatin 40 mg tablet 40 mg PO PM 10/13/20 05/02/21 History insulin aspart U-100 100 unit/mL 16 unit SUBCUT AC 10/13/20 05/02/21 History (3 mL) subcutaneous pen (Novolog Flexpen U-100 Insulin aspart) lorazepam 1 mg tablet 1 mg PO UD 10/13/20 05/02/21 History torsemide 100 mg tablet 100 mg PO PM 10/13/20 05/02/21 History trazodone 50 mg tablet 50 mg PO HS 12/26/20 05/02/21 History aspirin 81 mg chewable tablet 81 mg PO QPM 01/29/21 05/02/21 History insulin glargine 100 unit/mL (3 56 unit SUBCUT QAM 01/29/21 05/02/21 History mL) subcutaneous pen (Basaglar KwikPen U-100 Insulin) metoprolol succinate 50 mg 50 mg PO BID 05/02/21 05/02/21 History tablet,extended release 24 hr Patient History Medical History A-V fistula right Anemia Chronic respiratory failure with hypoxia Chronic systolic CHF (congestive heart failure) Diabetes IDDM (Type 1 per records) Dyslipidemia End stage renal disease diaylsis - M,W,F ([place], [place]) History of colon polyps Hypertension NICM (nonischemic cardiomyopathy) Non compliance w medication regimen Obesity On home O2 on 2-3L at rest, up to 5L w/ exertion Poor historian Sarcoidosis per records Seizure disorder remote hx (2007) in setting of hypoglycemia (?ETOH related per records), no issues since Surgical History History of cardiac cath History of colonoscopy 01/25/21 [facility] History of esophagogastroduodenoscopy (EGD) 01/22/21 [facility] History of lung surgery removal of benign nodule History of surgery removal of permacath History of vascular access device permacath insertion Hx of biopsy kidney bx PONV (postoperative nausea and vomiting) Status post creation of arteriovenous fistula right: 07/15/17: MAC sedation at [facility] Family History Father Hypertension Social History Smoking Status: Former smoker Tobacco Type: Cigarettes Years Smoked: 2; Second Hand Exposure: No; Hx Alcohol Use: No Hx Substance Use: No Preferred Language: Finnish Communication Ability: Effective Fruit Preserver Required: No Beliefs That Will Affect Care: None Current Living Situation: Alone Current Living Situation Comment: Roommate Other Information That Helps Us Care for You: No Feels Safe at Home: Yes Safety Concerns: Feels Safe At This Time Assistive Devices: None Review of Systems Review of Systems: All systems reviewed & are unremarkable except as noted in Subjective Physical Exam Constitutional: well developed and well nourished; no acute distress Respiratory: normal respiratory effort; no respiratory distress, no labored breathing, no retractions and does not use accessory muscles Cardiovascular: Rate/Rhythm: regular rate and regular rhythm Heart Sounds: normal S1 and normal S2; no murmur Vessels: + JVD; no carotid bruit Extremities: no edema Gastrointestinal (Abdomen): Inspection/Auscultation: abdomen normal to inspection and normal bowel sounds; abdomen not distended Pe rcussion/Palpation: abdomen soft; abdomen nontender, no guarding and abdomen not rigid Neurologic: CN's II-XI intact bilaterally and moves all extremities Psychiatric: A+Ox3, euthymic affect Results & Data ([facility]) Vital Signs (Past 12 Hours) Vital Signs Temp Pulse Pulse Pulse Resp BP Pulse Ox 05/04/21 09:28 72 20 151/67 H 05/04/21 08:48 36.7 C 73 18 147/77 H 92 05/04/21 08:35 24 144/72 H 95 05/04/21 08:25 36.5 C 72 24 144/72 H 95 05/04/21 08:15 70 20 139/75 96 05/04/21 08:05 74 22 139/73 93 05/04/21 07:55 72 17 147/80 H 98 05/04/21 07:45 36.6 C 73 12 L 12 140/82 96 05/04/21 06:39 37.2 C 71 20 149/77 H 95 05/04/21 03:42 36.8 C 77 20 96 05/04/21 00:12 36.6 C 73 18 156/77 H 97 05/03/21 23:02 81 Diagnostic Findings Cardiac catheterization, images personally reviewed, 08/24/2020: Minor luminal irregularities. No significant obstructive disease. 2D echocardiogram August 22, 2020: The qualitative LV ejection fraction is 45-49% (mildly reduced). There is a large sized apical, inferior, posterior, and lateral wall motion abnormality with hypokinesis of the segments. No significant valvular disease is present.
[2021-05-04] MEDS: LORazepam 0.5 MG TAB PO PRN (10:04)
[2021-05-04] MEDS: INSULIN ASPART PER UNIT SC SCH ×4 (10:08→21:15)
[2021-05-04 10:52] LABS: Hematocrit (blood only) 24.6 % (42-52); Hemoglobin 7.4 g/dL (14.0-18.0); Mean Corpuscular Hemoglobin 28.2 pg (25-34); Mean Corpuscular Hgb Conc 30.1 g/dL (32-36); Mean Corpuscular Volume 93.9 fL (80-100); Mean Platelet Volume 8.9 fL (7.4-10.4); Nucleated RBC # (auto) 0.06 K/uL (0-0); Nucleated RBC % (auto) 0.6 %; Platelet Count 213 K/uL (130-400); RDW Coefficient of Variation 17.7 % (11.5-14.5); RDW Standard Deviation 58.9 fL (36.4-46.3); Red Blood Count 2.62 M/uL (4.7-6.1); White Blood Count 8.76 K/uL (4.8-10.8)
[2021-05-04 12:00] LABS: BUN Creatinine Ratio 5.4 (10-20); Calcium 7.8 mg/dl (8.5-10.1); Creatinine Clr Calc Pharmacy 16.5 ml/min; Est GFR (African American) 10.6 ml/min; Est GFR (Non-African American) 9.1 ml/min; Magnesium 2.1 mg/dl (1.8-2.4); Phosphorus 5.4 mg/dl (2.5-4.9); Potassium 4.3 mmol/L (3.5-5.1)
[2021-05-04] MEDS ORDERED: INSULIN GLARGINE SOLOSTAR 100 UNITS/ML 3 ML PEN SC SCH ×3 (12:15→14:30)
[2021-05-04] MEDS: METOPROLOL SUCC 50MG EXT REL TAB PO SCH ×2 (14:28→20:47)
[2021-05-04] MEDS: CEFEPIME 1,000 MG in SYRINGE 0 ML IV SCH (14:28)
--- NOTE | 2021-05-04 14:32 | Pharmacy Report ---
Pharmacy Glycemic Short Note 2 - Date of Service May 04, 2021 - Glycemic Short BSG Results (Last 24 hours): 05/03/21 05/03/21 05/04/21 16:38 20:31 01:46 Glucose POC Glucose 89 114 H 67 L* 05/04/21 05/04/21 05/04/21 01:47 02:53 04:45 Glucose POC Glucose 60 L* 123 H 86 05/04/21 05/04/21 05/04/21 05:03 05:26 07:03 Glucose POC Glucose 74 78 145 H 05/04/21 05/04/21 05/04/21 07:49 08:41 10:35 Glucose 292 H POC Glucose 154 H 144 H 05/04/21 14:18 Glucose POC Glucose 175 H OUTPATIENT ANTIDIABETIC REGIMEN: * Lantus 56 units SC AM * Novolog 16 units SC AC * HbA1c pending ASSESSMENT: 05/04/21 * Patient received 74 units of insulin yesterday, BSGs very well controlled * BSGs trending down overnight - unclear if related to too much basal or too much correctional insulin at HS time * Patient NPO this morning in OR. No Lantus given yet - patient then sent to dialysis following OR. Did eat a late breakfast per notes * Plan for slight dose decrease in basal, will ensure dose given now 05/03/21 * Pt has received 53 units of insulin over the past 24hrs * 50 units of basal with Lantus * 3 units of bolus with NovoLog * BSGs severe hyperglycemia last night on admission, trending downwards with SQ basal bolus insulin regimen per previous admission. * BSGs continuing to trend downwards. Will empirically decrease insulin dosing to prevent low tomorrow. 05/02/21 * 41 yo M admitted due to shortness of breath. Patient has ESRD on HD MWF. Pharmacy has been consulted to assist with inpatient glycemic management. Patient is known to this service. * No insulin administered today prior to admission. BSG upon arrival to ED was 156 mg/dL. Gave a reduced home dose of Lantus 30 units x 1. Will add a Lantus scale this evening in case patient is hyperglycemic. * Novolog will be started based on previous admission data. Will add overnight checks for the first night. Targeting a goal range of 110-140 mg/dL. * Patient scheduled to have HD today. PLAN FOR INPATIENT GLYCEMIC CONTROL: * Basal insulin * Lantus 25 units daily * Bolus insulin * NovoLog per scale ACHS or Q6hrs while NPO * Goal Range: Low 110 mg/dL - High 140 mg/dL * Correction Factor: 25 mg/dL/unit * Nutritional / Prandial insulin per carb ratio of 1 unit per 6 grams CHO consumed PLAN FOR DISCHARGE: * To be determined
[2021-05-04] MEDS: hydrALAZINE HCL 25 MG TAB PO SCH (15:51)
--- NOTE | 2021-05-04 17:01 | Hospitalist Progress Note ---
Date of Service May 04, 2021 Assessment & Plan (1) Volume overload: Plan: Apparently from noncompliance with HD sessions, however patient has a history of nonischemic cardiomyopathy, also. Additionally, with further questioning, he reports having chronic shortness of breath prior to being on hemodialysis. Cardiology consulted and ordered echo--to be done in am. Cont current medical therapy. Patient feels much better now, oxygenating at baseline and with clear lungs to auscultation. Appears compensated on exam. (2) Pneumonia: Plan: Question of pneumonia, however this is more likely pulmonary edema. For now with ongoing mastoiditis infection continue antibiotics. Taper per ENT (3) NICM (nonischemic cardiomyopathy): Plan: Cardiology consult, patient appears compensated after additional 3L taken off in HD today. (4) ESRD (end stage renal disease) on dialysis: Plan: Cont HD sessions with UF for fluid management. Appears compensated. (5) Chronic respiratory failure with hypoxia: Plan: Back to baseline level of hypoxia today after hemodialysis session yesterday. However, patient reports no improvement in respiratory status or breathing. Asked to see a board mixer tender regarding a history of sarcoid. We discussed that pulmonary edema is present and after treating this he should follow-up as outpatient with pulmonology with [facility]. He is already scheduled for PFTs in April. He is not a [employer] member and is not interested in this. (6) Mastoiditis of left side: Plan: -left mastoiditis noted on head CT in the setting of hearing loss for the last 2 months. s/p myringotomy tube on left today. Continue antibiotics. (7) Sarcoidosis: Plan: -CT chest shows increase in size of mediastinal and bilateral hilar lymph nodes since prior CT -will need outpatient follow-up with pulmonology (8) Hypertension: Plan: chronic, at goal-Continue current medical therapy (9) DM type 1 (diabetes mellitus, type 1): Plan: -Hgb A1c 6.4 02/2021 -Glycemic pharmacy consulted while admitted and glucose remains stable on current insulin dosing protocol. (10) Back pain: Plan: This is improved today. Tylenol PRN, PT/OT as outpatient recommended. Likely MSK pain related to compensation and guarding of left side recently. Overall a ppears physically deconditioned. (11) Anemia of chronic disease: Plan: -Anemia due to CKD and chronic comorbidities. Currently at baseline, no indication for transfusion at this time. (12) DVT prophylaxis: Plan: -SQ heparin Full Dispo-to home when medically stable and breathing is improved. Possibly tomorrow pending further recommendations from Cardiology. and echo results. Yvette Montero DO [facility] Hospitalist Admission and Anticipated Discharge Date Admission Date: May 02, 2021 Subjective Feels better today up and ambulatin garound the room off oxygen not winded when doing this s/p myringotomy tube on left ear with post auricular pain and TTP Tylenol not helping-gave oxy back pain is improved, patient states he feels the fluid had something to do with it and that is better echo unable to be completed because of HD, will complete tomorrow. remains on abx Review of Systems Review of Systems: All systems were reviewed and negative except as indicated in subjective above. Physical Exam Physical Exam: CONSTITUTIONAL: WNWD, vitals as above, generally well- appearing, NAD EYES: normal conjunctivae, no scleral icterus ENT: external ear and nose normal, MMM, supplemental oxygen in place. NECK: trachea midline RESPIRATORY: clear to auscultation bilaterally, no crackles, rales or wheezes, normal respiratory effort CARDIOVASCULAR: regular rate and rhythm, S1 and 2 heard without murmurs, gallops or rubs, no JVD, no peripheral edema CHEST: inspection of chest was normal GASTROINTESTINAL: soft, nontender,ND, no guarding MUSCULOSKELETAL: strength 5/5 throughout, head is normocephalic and atraumatic SKIN: warm and dry NEUROLOGIC: no facial palsy, no dysarthria. CN 2-12 grossly intact, no sensory deficit, normal cognition, normal speech, no tremor, no gross focal deficits. PSYCHIATRIC: alert cooperative and oriented to person, place and time. Results & Data Results & Data ([facility]) Vital Signs (Past 12 Hours) Vital Signs Temp Pulse Pulse Pulse Resp BP BP 05/04/21 14:06 37 C 72 145/76 H 05/04/21 13:40 74 149/95 H 05/04/21 13:20 72 147/80 H 05/04/21 13:00 74 150/68 H 05/04/21 12:40 75 142/71 H 05/04/21 12:20 74 137/71 05/04/21 12:00 74 129/61 05/04/21 11:40 72 132/71 05/04/21 11:20 71 127/67 05/04/21 11:00 73 152/80 H 05/04/21 10:45 72 132/80 05/04/21 10:36 36.6 C 73 05/04/21 09:28 72 20 151/67 H 05/04/21 09:00 83 05/04/21 08:48 36.7 C 73 18 147/77 H 05/04/21 08:35 24 144/72 H 05/04/21 08:25 36.5 C 72 24 144/72 H 05/04/21 08:15 70 20 139/75 05/04/21 08:05 74 22 139/73 05/04/21 07:55 72 17 147/80 H 05/04/21 07:45 36.6 C 73 12 L 12 140/82 05/04/21 06:39 37.2 C 71 20 149/77 H Pulse Ox 05/04/21 14:06 05/04/21 13:40 05/04/21 13:20 05/04/21 13:00 05/04/21 12:40 05/04/21 12:20 05/04/21 12:00 05/04/21 11:40 05/04/21 11:20 05/04/21 11:00 05/04/21 10:45 05/04/21 10:36 05/04/21 09:28 05/04/21 09:00 05/04/21 08:48 92 05/04/21 08:35 95 05/04/21 08:25 95 05/04/21 08:15 96 05/04/21 08:05 93 05/04/21 07:55 98 05/04/21 07:45 96 05/04/21 06:39 95 Laboratory Results Short CBC 05/04/21 Range/Units 10:35 WBC 8.76 (4.8-10.8) K/uL Hgb 7.4 L (14.0-18.0) g/dL Hct 24.6 L (42-52) % Plt Count 213 (130-400) K/uL BMP 05/04/21 10:35 Sodium 137 Potassium 4.3 Chloride 101 Carbon Dioxide 28 BUN 37 H Creatinine 6.90 H* D Glucose 292 H Calcium 7.8 L D Medications Administered Current Inpatient Medications Acetaminophen (Acetaminophen 325 Mg Tab) 650 mg PO Q4H PRN PRN Reason: Pain or Fever Stop: 06/01/21 14:13 Last Admin: 05/02/21 15:59 Dose: 650 mg Documented by: Amlodipine Besylate (Amlodipine Besylate 5 Mg Tab) 10 mg PO HS CHENG Stop: 06/01/21 20:59 Last Admin: 05/03/21 21:34 Dose: 10 mg Documented by: Aspirin (Aspirin 81 Mg Chew) 81 mg PO QPM CHENG Stop: 06/01/21 20:59 Last Admin: 05/03/21 21:34 Dose: 81 mg Documented by: Atorvastatin Calcium (Atorvastatin 40 Mg Tab) 40 mg PO PM CHENG Stop: 06/01/21 20:59 Last Admin: 05/03/21 21:34 Dose: 40 mg Documented by: Calcium Acetate (Calcium Acetate 667 Mg Cap/Tab) 1,334 mg PO AC [facility] Stop: 06/01/21 16:29 Last Admin: 05/04/21 14:27 Dose: 1,334 mg Documented by: Calcium Acetate (Calcium Acetate 667 Mg Cap/Tab) 1,334 mg PO PRN PRN PRN Reason: WITH SNACKS Stop: 06/01/21 14:45 Dextrose (Dextrose 50% 50 Ml Syringe) 25 - 50 ml IV UD PRN; Protocol PRN Reason: Hypoglycemia Protocol Stop: 06/01/21 14:59 Glucagon (Glucagon For Inj 1 Mg Vial) 1 mg IM UD PRN; Protocol PRN Reason: Hypoglycemia Protocol Stop: 06/01/21 14:59 Glucose (Glucose 40% Gel 15 Gm Tube) 15 - 30 gm PO UD PRN; Protocol PRN Reason: Hypoglycemia Protocol Stop: 06/01/21 14:59 Glucose (Glucose 10 Tabs/Tube) 4 - 8 tabs PO UD PRN; Protocol PRN Reason: Hypoglycemia Protocol Stop: 06/01/21 14:59 Heparin Sodium (Porcine) (Heparin Sod 5,000 Unit/0.5 Ml Vial) 5,000 units SQ Q8 CHENG Stop: 06/01/21 14:44 Last Admin: 05/04/21 14:29 Dose: 5,000 units Documented by: Hydralazine HCl (Hydralazine Hcl 25 Mg Tab) 25 mg PO DAILY [facility] Stop: 06/01/21 14:29 Last Admin: 05/04/21 15:51 Dose: 25 mg Documented by: Cefepime HCl 1,000 mg/ Syringe 11.3 mls @ 5.5 mls/min IV Q24H [facility]; Protocol Stop: 05/10/21 13:59 Last Admin: 05/04/21 14:28 Dose: 5.5 mls/min Documented by: Insulin Aspart (Insulin Aspart Per Unit) 0 units SC ACHS [facility] Stop: 06/01/21 20:59 Last Admin: 05/04/21 14:57 Dose: 10 units Documented by: Insulin Glargine (Insulin Glargine Solostar 100 Units/Ml 3 Ml Pen) 25 units SC DAILY [facility]; Protocol Stop: 06/03/21 14:29 Last Admin: 05/04/21 14:32 Dose: 25 units Documented by: Lisinopril (Lisinopril 40 Mg Tab) 40 mg PO HS [facility] Stop: 06/01/21 20:59 Last Admin: 05/03/21 21:34 Dose: 40 mg Documented by: Lorazepam (Lorazepam 0.5 Mg Tab) 0.5 mg PO Q8H PRN PRN Reason: Anxiety Stop: 06/01/21 18:22 Last Admin: 05/04/21 10:04 Dose: 0.5 mg Documented by: Metoprolol Succinate (Metoprolol Succ 50mg Ext Rel Tab) 50 mg PO BID [facility] Stop: 06/01/21 13:59 Last Admin: 05/04/21 14:28 Dose: 50 mg Documented by: Miscellaneous (Remove Lidoderm Patch) 1 ea N/A DAILY@2100 [facility] Stop: 06/01/21 20:59 Last Admin: 05/03/21 21:36 Dose: Not Given Documented by: Miscellaneous (Carbohydrates For Hypoglycemia ) 15 - 30 gm PO UD PRN PRN Reason: Hypoglycemia Treatment Stop: 06/01/21 14:59 Miscellaneous Information (Pharmacy Glycemic Mgmt Consult) 1 ea N/A UD PRN PRN Reason: Consult Stop: 06/01/21 14:44 Oxycodone HCl (Oxycodone Hcl Ir 5 Mg Tab (Immediate Release)) 5 mg PO Q12H PRN PRN Reason: severe pain Stop: 05/18/21 16:55 Torsemide (Torsemide 100 Mg Tab) 100 mg PO PM [facility] Stop: 06/01/21 20:59 Last Admin: 05/03/21 21:34 Dose: 100 mg Documented by: Trazodone HCl (Trazodone Hcl 50 Mg Tab) 50 mg PO HS CHENG Stop: 06/01/21 20:59 Last Admin: 05/03/21 21:34 Dose: 50 mg Documented by: Vitamin B Complex/Folic Acid (Nephrocaps) 1 cap PO PM CHENG Stop: 06/01/21 20:59 Last Admin: 05/03/21 21:34 Dose: 1 cap Documented by:
[2021-05-04] MEDS: oxyCODONE HCL IR 5 MG TAB (IMMEDIATE RELEASE) PO PRN (18:10)
[2021-05-04] MEDS: traZODone HCL 50 MG TAB PO SCH (20:46)
[2021-05-04] MEDS: TORSEMIDE 100 MG TAB PO SCH (20:46)
[2021-05-04] MEDS: ASPIRIN 81 MG CHEW PO SCH (20:46)
[2021-05-04] MEDS: NEPHROCAPS PO SCH (20:47)
[2021-05-04] MEDS: ATORVASTATIN 40 MG TAB PO SCH (20:47)
[2021-05-04] MEDS: amLODIPine BESYLATE 5 MG TAB PO SCH (20:47)
[2021-05-04] MEDS: lisinopril 40 MG TAB PO SCH (20:47)
[2021-05-05] MEDS: ACETAMINOPHEN 325 MG TAB PO PRN ×2 (03:49→21:39)
[2021-05-05] MEDS: HEPARIN SOD 5,000 UNIT/0.5 ML VIAL SQ SCH ×3 (05:36→21:24)
[2021-05-05] MEDS: oxyCODONE HCL IR 5 MG TAB (IMMEDIATE RELEASE) PO PRN ×2 (06:16→23:51)
[2021-05-05 06:57] LABS: Hematocrit (blood only) 29.1 % (42-52); Hemoglobin 8.8 g/dL (14.0-18.0); Mean Corpuscular Hemoglobin 28.3 pg (25-34); Mean Corpuscular Hgb Conc 30.2 g/dL (32-36); Mean Corpuscular Volume 93.6 fL (80-100); Mean Platelet Volume 8.6 fL (7.4-10.4); Nucleated RBC # (auto) 0.19 K/uL (0-0); Nucleated RBC % (auto) 1.8 %; Platelet Count 225 K/uL (130-400); RDW Coefficient of Variation 18.1 % (11.5-14.5); RDW Standard Deviation 58.2 fL (36.4-46.3); Red Blood Count 3.11 M/uL (4.7-6.1); White Blood Count 10.52 K/uL (4.8-10.8)
[2021-05-05] MEDS: CALCIUM ACETATE 667 MG CAP/TAB PO SCH ×3 (08:03→17:36)
[2021-05-05] MEDS: METOPROLOL SUCC 50MG EXT REL TAB PO SCH ×2 (08:03→21:21)
[2021-05-05] MEDS: hydrALAZINE HCL 25 MG TAB PO SCH (08:04)
[2021-05-05 08:06] LABS: BUN Creatinine Ratio 4.6 (10-20); Creatinine Clr Calc Pharmacy 19.7 ml/min; Est GFR (Non-African American) 11.2 ml/min
[2021-05-05] MEDS: INSULIN ASPART PER UNIT SC SCH ×4 (08:10→21:46)
[2021-05-05] MEDS ORDERED: INSULIN GLARGINE SOLOSTAR 100 UNITS/ML 3 ML PEN SC SCH (09:00)
--- NOTE | 2021-05-05 11:02 | Pharmacy Report ---
Pharmacy Glycemic Short Note 2 - Date of Service May 05, 2021 - Glycemic Short BSG Results (Last 24 hours): 05/04/21 05/04/21 05/04/21 10:35 14:18 16:36 Glucose 292 H POC Glucose 175 H 153 H 05/04/21 05/05/21 05/05/21 20:05 06:46 07:18 Glucose 146 H POC Glucose 198 H 194 H OUTPATIENT ANTIDIABETIC REGIMEN: * Lantus 56 units SC AM * Novolog 16 units SC AC * HbA1c 6.3% (05/03/21) * However, this result is likely somewhat unreliable in ESRD patients d/t interactions between the A1c analyzing technique and high levels of urea in ESRD, reduced RBC life span, iron deficiency anemia, and EPO administration. HbA1c > 7.5% in ESRD patient may overestimate the extent of hyperglycemia in ESRD patients. ASSESSMENT: 05/05: * Sean received a total of 53 units of insulin yesterday * BSGs acceptable over last 24 hours * Insulin given late yesterday due to surgery, NPO status and HD * Fasting trended up to 194 mg/dL this AM * Will increase basal slightly today * No changes to Novolog 05/04: * Patient received 74 units of insulin yesterday, BSGs very well controlled * BSGs trending down overnight - unclear if related to too much basal or too much correctional insulin at HS time * Patient NPO this morning in OR. No Lantus given yet - patient then sent to dialysis following OR. Did eat a late breakfast per notes * Plan for slight dose decrease in basal, will ensure dose given now 05/03: * Pt has received 53 units of insulin over the past 24hrs * 50 units of basal with Lantus * 3 units of bolus with NovoLog * BSGs severe hyperglycemia last night on admission, trending downwards with SQ basal bolus insulin regimen per previous admission. * BSGs continuing to trend downwards. Will empirically decrease insulin dosing to prevent low tomorrow. 05/02: * 41 yo M admitted due to shortness of breath. Patient has ESRD on HD MWF. Pharmacy has been consulted to assist with inpatient glycemic management. Patient is known to this service. * No insulin administered today prior to admission. BSG upon arrival to ED was 156 mg/dL. Gave a reduced home dose of Lantus 30 units x 1. Will add a Lantus scale this evening in case patient is hyperglycemic. * Novolog will be started based on previous admission data. Will add overnight checks for the first night. Targeting a goal range of 110-140 mg/dL. * Patient scheduled to have HD today. PLAN FOR INPATIENT GLYCEMIC CONTROL: * Basal insulin - increased * Lantus 30 units SC daily * Bolus insulin * NovoLog per scale ACHS or Q6hrs while NPO * Goal Range: Low 110 mg/dL - High 140 mg/dL * Correction Factor: 25 mg/dL/unit * Nutritional / Prandial insulin per carb ratio of 1 unit per 6 grams CHO consumed PLAN FOR DISCHARGE: * HbA1c was 6.3% but is unreliable secondary to ESRD on HD. Continue home regimen upon discharge.
[2021-05-05] MEDS ORDERED: INSULIN GLARGINE SOLOSTAR 100 UNITS/ML 3 ML PEN SC STA (12:10)
--- NOTE | 2021-05-05 12:55 | Hospitalist Progress Note ---
Date of Service May 05, 2021 Assessment & Plan (1) Volume overload: Plan: Noncompliance with HD sessions, however patient has a history of nonischemic cardiomyopathy, also. Additionally, with further questioning, he reports having chronic shortness of breath prior to being on hemodialysis. [employer] recommendations noted Echocardiogram report noted. Civil Process Server ordered SPEP and will follow the results. Consider patient on need for adherence to dialysis. Discussed with medical accounts receivable specialist today who will evaluate and determine if further dialysis is needed for today Patient is currently on 8 L nasal cannula. We'll continue to wean as tolerated (2) Pneumonia: Plan: Question of pneumonia, however this is more likely pulmonary edema. For now with ongoing mastoiditis infection continue antibiotics. Procalcitonin did increase today to 6 Repeat CXR to reassess Continue current antibiotics. (3) NICM (nonischemic cardiomyopathy): Plan: [employer] eval and recommendations noted (4) ESRD (end stage renal disease) on dialysis: Plan: Has been getting HD over the past 3 days Nephrology will reeval to determine if HD needed today (5) Chronic respiratory failure with hypoxia: Plan: Back to baseline level of hypoxia today after hemodialysis session yesterday. However, patient reports no improvement in respiratory status or breathing. Asked to see a professional skateboarder regarding a history of sarcoid. He reports he uses 3l/min or more at home Needs to follow up with Pulm outpatient. He is already scheduled for PFTs in April . (6) Mastoiditis of left side: Plan: -left mastoiditis noted on head CT in the setting of hearing loss for the last 2 months. Had Left myringotomy by Dr Jackman on 05/04/21 Reports hearing problems is resolved Continue antibiotics. (7) Sarcoidosis: Plan: -CT chest shows increase in size of mediastinal and bilateral hilar lymph nodes since prior CT -will need outpatient follow-up with pulmonology -PFTs in Apr (8) Hypertension: Plan: chronic, at goal-Continue current medical therapy (9) DM type 1 (diabetes mellitus, type 1): Plan: -Hgb A1c 6.4 02/2021 -Glycemic pharmacy on board for management (10) Back pain: Plan: Tylenol PRN, PT/OT as outpatient recommended. Likely MSK pain related to compensation and guarding of left side recently. Overall appears physically deconditioned. (11) Anemia of chronic disease: Plan: -Anemia due to CKD and chronic comorbidities. Currently at baseline, no indication for transfusion at this time. (12) DVT prophylaxis: Plan: -SQ heparin Full Dispo-to home when medically stable and breathing is improved and oxygen requirement improves Admission and Anticipated Discharge Date Admission Date: May 02, 2021 Subjective Patient seen and examined. Reports shortness of breath with activity. Occasional cough. Denies chest pain, palpitations Denies fevers, chills, nausea vomiting Reports hearing problem is resolved since after procedure yesterday Reports back pain is improved. No pain at this time. Physical Exam Constitutional: + well hydrated; no acute distress Eyes: PERRL, conjunctivae normal, anicteric sclerae Respiratory: Patient is currently on 8 L nasal cannula, diminished breath sounds lung bases Cardiovascular: RRR,S1-S2 Gastrointestinal (Abdomen): normal bowel sounds, soft, nontender, no hepatosplenomegaly Musculoskeletal: No pedal edema Neurologic: PERRL, EOMI, accommodation nl, no face palsy, no dysarthria Psychiatric: A+Ox3, euthymic affect Results & Data Results & Data ([facility]) Vital Signs (Past 12 Hours) Vital Signs Temp Pulse Pulse Resp BP Pulse Ox 05/05/21 10:58 36.8 C 71 14 135/79 94 05/05/21 06:51 36.8 C 72 16 149/79 H 98 05/05/21 03:42 36.3 C L 72 14 138/74 98 Laboratory Results Abnormal lab results 05/04/21 05/04/21 05/04/21 Range/Units 14:18 16:36 20:05 RBC (4.7-6.1) M/uL Hgb (14.0-18.0) g/dL Hct (42-52) % MCHC (32-36) g/dL RDW Std Deviation (36.4-46.3) fL RDW Coeff of Selin (11.5-14.5) % Absolute Nucleated RBC (0-0) K/uL BUN (7-18) mg/dl Creatinine (0.6-1.4) mg/dl BUN/Creatinine Ratio (10-20) Glucose (70-99) mg/dl POC Glucose 175 H 153 H 198 H (70-99) mg/dl Procalcitonin (0-0.5) ng/ml 12/11/21 12/11/21 12/11/21 Range/Units 06:46 06:46 06:46 RBC 3.11 L (4.7-6.1) M/uL Hgb 8.8 L (14.0-18.0) g/dL Hct 29.1 L (42-52) % MCHC 30.2 L (32-36) g/dL RDW Std Deviation 58.2 H (36.4-46.3) fL RDW Coeff of Selin 18.1 H (11.5-14.5) % Absolute Nucleated RBC 0.19 H (0-0) K/uL BUN 27 H (7-18) mg/dl Creatinine 5.82 H* D (0.6-1.4) mg/dl BUN/Creatinine Ratio 4.6 L (10-20) Glucose 146 H (70-99) mg/dl POC Glucose (70-99) mg/dl Procalcitonin 6.16 H (0-0.5) ng/ml 05/05/21 05/05/21 05/05/21 Range/Units 07:18 11:21 11:23 RBC (4.7-6.1) M/uL Hgb (14.0-18.0) g/dL Hct (42-52) % MCHC (32-36) g/dL RDW Std Deviation (36.4-46.3) fL RDW Coeff of Selin (11.5-14.5) % Absolute Nucleated RBC (0-0) K/uL BUN (7-18) mg/dl Creatinine (0.6-1.4) mg/dl BUN/Creatinine Ratio (10-20) Glucose (70-99) mg/dl POC Glucose 194 H 326 H* 323 H* (70-99) mg/dl Procalcitonin (0-0.5) ng/ml
[2021-05-05] MEDS ORDERED: INSULIN ASPART PER UNIT SC STA (13:06)
--- NOTE | 2021-05-05 13:07 | Cardiology Progress Note ---
Date of Service May 05, 2021 Assessment & Plan (1) Volume overload: (2) ESRD (end stage renal disease) on dialysis: (3) Chronic systolic CHF (congestive heart failure): (4) NICM (nonischemic cardiomyopathy): (5) Sarcoidosis: (6) Hypoxia: Plan: Continue current cardiovascular medications include lisinopril, metoprolol succinate, low-dose aspirin, statin therapy, hydralazine and amlodipine. Importance of compliance with medical therapies and hemodialysis treatments reviewed at length. Recommend repeat SPEP due to left ventricular hypertrophy. Per chart review, protein electrophoresis was negative in 2016 during his initial evaluation with nephrology. Management of anemia as per internal medicine and nephrology. Recommend outpatient cardiology follow-up in 2-3 months. No further inpatient cardiac testing or intervention at this time. Admission and Anticipated Discharge Date Admission Date: May 02, 2021 Subjective Patient seen and examined at the bedside. No changes overnight. Preliminary review of bedside 2D transthoracic echocardiogram demonstrates moderate concentric left ventricular hypertrophy and mild LV systolic dysfunction. Findings unchanged when compared to prior echo. Previously reported headache has improved. Continues to note shortness of breath and hypoxia. Wearing 2-3 L of supplemental oxygen at home chronically. No orthopnea or PND. Tolerating hemodialysis treatment. Review of Systems Review of Systems: All systems reviewed & are unremarkable except as noted in Subjective Physical Exam Constitutional: well developed and well nourished; no acute distress Respiratory: normal respiratory effort; no respiratory distress, no labored breathing, no retractions and does not use accessory muscles Cardiovascular: Rate/Rhythm: regular rate and regular rhythm Heart Sounds: normal S1 and normal S2; no murmur Vessels: + JVD; no carotid bruit Extremities: no edema Gastrointestinal (Abdomen): Inspection/Auscultation: abdomen normal to inspection and normal bowel sounds; abdomen not distended Percussion/Palpation: abdomen soft; abdomen nontender, no guarding and abdomen not rigid Neurologic: CN's II-XI intact bilaterally and moves all extremities Psychiatric: A+Ox3, euthymic affect Results & Data ([facility]) Vital Signs (Past 12 Hours) Vital Signs Temp Pulse Pulse Resp BP Pulse Ox 05/05/21 10:58 36.8 C 71 14 135/79 94 05/05/21 06:51 36.8 C 72 16 149/79 H 98 05/05/21 03:42 36.3 C L 72 14 138/74 98
--- NOTE | 2021-05-05 13:11 | XRay Report ---
XR chest 1V portable CLINICAL HISTORY: Reassess. Hypoxia. Follow-up bilateral airspace opacities COMPARISON STUDY: 05/02/2021 TECHNIQUE: 1 view of the chest FINDINGS: Single frontal view of the chest demonstrates the heart size to again be at the upper limits of alondra l to mildly enlarged. Compared to previous examination, there has been partial resolution of bilatera l interstitial and alveolar airspace opacities. No new confluent alveolar opacities are seen. There i s haziness at the left lung base when compared to the right suspicious of pleural fluid layering aneudy g the posterior gutter. There is no evidence for vascular congestion. There is no acute osseous patho logy. IMPRESSION: Partial resolution of bilateral interstitial and alveolar opacities. Suspicion of left pl eural effusion. ACT 112: Negative or not required by law. Electronically signed by: Gomez Menon M.D. 05/05/2021 1:09 PM
[2021-05-05] MEDS: CEFEPIME 1,000 MG in SYRINGE 0 ML IV SCH (13:23)
[2021-05-05] MEDS ORDERED: SODIUM CHLORIDE 0.9% 1000ML 1,000 ML IV PRN (13:24)
[2021-05-05] MEDS ORDERED: EPOETIN ALFA 20,000 UNITS/ML VIAL IV ONE (13:24)
[2021-05-05] MEDS ORDERED: HEPARIN SOD (PORCINE) 1000 UNIT/ML IV ONE (13:24)
--- NOTE | 2021-05-05 13:25 | Nephrology Progress Note ---
Date of Service May 05, 2021 Assessment & Plan (1) ESRD (end stage renal disease) on dialysis: Plan: he had HD 3.75 hr 12/8 w/ 5L UF. then 2.2L UF yesterday w/ 2L tx. then 3.5-hour treatment with 2.7 L fluid removal >for HD today 2.5 hr tx w/ 2.5 L UF keeping sbp > 100 -1.2L FR and dialysis diet to resume pls when taking po (2) Anemia of chronic disease: Plan: max dose fina again w/ tx; daily hgb; needs repeat colonoscopy but refuses to prep historically (including during an admission here this fall); trans satn 04/02 at HD 34% (3) Volume overload: Plan: -as above (4) Nonadherence to medical treatment: Plan: w/ hx of repeatedly shortening HD txs AMA and with large IDWG. OP dialysis staff tell me he completed one full tx as OP in month prior to this admission. reasons he gives for coming off are variable > often hip, L knee pain; other times anxiety; other times unclear. have repeatedly advised him to f/u w/ OP PCP/ortho/pulm/cardiology/imaging/GI - he no shows these appts if he gets appt at all at least in March. frustrated at being asked about these at times. he is hopeful for txplt w/ [facility] but so far this has not motivated him in terms of adherence. not listed/ no eval yet. Admission and Anticipated Discharge Date Admission Date: May 02, 2021 Subjective Feels his breathing is essentially unchanged. However needed up to 8 L of oxygen midday. We have removed 10 L of fluid approximately in the past 72 hours with dialysis. Repeat chest x-ray pending Review of Systems Review of Systems: All systems reviewed & are unremarkable except as noted in Subjective Physical Exam 2 Constitutional: well developed and well nourished Eyes: EOM intact bilaterally ENMT: Ears: no external ear abnormality Nose: no external nose abnormality Mouth: + dry oral mucous membranes Neck: no nuchal rigidity Respiratory: normal respiratory effort Auscultation: + diminished lung sounds and + crackles (bibasilar) Cardiovascular: Rate/Rhythm: regular rate and regular rhythm Extremities: + AV fistula; no edema Gastrointestinal (Abdomen): Inspection/Auscultation: normal bowel sounds Percussion/Palpation: abdomen soft; abdomen nontender Musculoskeletal: Extremities: strength 5/5 throughout Skin: no rashes, warm and dry Psychiatric: Orientation: alert and oriented x 3 Affect: + flat affect Results & Data ([facility]) Vital Signs (Past 12 Hours) Vital Signs Temp Pulse Pulse Resp BP Pulse Ox 05/05/21 10:58 36.8 C 71 14 135/79 94 05/05/21 06:51 36.8 C 72 16 149/79 H 98 05/05/21 03:42 36.3 C L 72 14 138/74 98 Laboratory Results 05/05/21 06:46 05/05/21 06:46 Diagnostic Findings Chest x-ray Partial resolution of bilateral interstitial and alveolar opacities. Suspicion of left pleural effusion.
[2021-05-05] MEDS: HEPARIN SOD (PORCINE) 1000 UNIT/ML IV SCH ×3 (15:29→17:40)
[2021-05-05] MEDS: lisinopril 40 MG TAB PO SCH (21:21)
[2021-05-05] MEDS: ATORVASTATIN 40 MG TAB PO SCH (21:21)
[2021-05-05] MEDS: traZODone HCL 50 MG TAB PO SCH (21:22)
[2021-05-05] MEDS: NEPHROCAPS PO SCH (21:22)
[2021-05-05] MEDS: amLODIPine BESYLATE 5 MG TAB PO SCH (21:22)
[2021-05-05] MEDS: ASPIRIN 81 MG CHEW PO SCH (21:22)
[2021-05-05] MEDS: TORSEMIDE 100 MG TAB PO SCH (21:22)
[2021-05-06] MEDS: HEPARIN SOD 5,000 UNIT/0.5 ML VIAL SQ SCH (06:08)
[2021-05-06] MEDS: CALCIUM ACETATE 667 MG CAP/TAB PO SCH ×2 (07:32→11:31)
[2021-05-06] MEDS: INSULIN ASPART PER UNIT SC SCH ×2 (07:36→11:41)
[2021-05-06] MEDS: METOPROLOL SUCC 50MG EXT REL TAB PO SCH (07:40)
[2021-05-06] MEDS: hydrALAZINE HCL 25 MG TAB PO SCH (07:40)
[2021-05-06 08:33] LABS: BUN Creatinine Ratio 4.9 (10-20); Calcium 8.9 mg/dl (8.5-10.1); Creatinine Clr Calc Pharmacy 20.2 ml/min; Est GFR (African American) 13.3 ml/min; Est GFR (Non-African American) 11.5 ml/min; Potassium 3.9 mmol/L (3.5-5.1)
[2021-05-06] MEDS ORDERED: INSULIN GLARGINE SOLOSTAR 100 UNITS/ML 3 ML PEN SC SCH (09:00)
[2021-05-06] MEDS ORDERED: INSULIN ASPART PER UNIT SC STA (11:23)
[2021-05-06] MEDS ORDERED: INSULIN GLARGINE SOLOSTAR 100 UNITS/ML 3 ML PEN SC STA (11:29)
--- NOTE | 2021-05-06 11:34 | Discharge Summary ---
Date of Service May 06, 2021 Admission HPI Per Admitting Provider 41-year-old male with PMH DM type I, ESRD on hemodialysis MWF, nephrotic syndrome, nonischemic cardiomyopathy, sarcoidosis, medical noncompliance, and other problems to below who presents the ED for evaluation of shortness of breath. Patient is a poor historian. When asked how long his symptoms have been present he states " 3 years". Patient was seen in the ED on 04/16 and diagnosed with left eustachian tube dysfunction. Was given instructions to take [id number] medications and drink plenty of fluids. Patient was seen in the ED again on 04/19 with a chief complaint of chest pain or shortness of leobardo ath, patient subsequently signed out AGAINST MEDICAL ADVICE. During last dialysis session on 04/30, patient requested that treatment and 2 hours early due to leg pain and restlessness. Patient reports he chronically wears 3 to 5 L of oxygen. Last evening, he reports he became short of breath and oxygen level was 47%. Reports he could not get his oxygen level above the mid 80s. Patient denies chest pain. He has had an intermittent nonproductive cough. No fevers or chills. Denies lightheadedness, dizziness, diaphoresis, syncopal events. No abdominal pain, nausea, vomiting, diarrhea. Patient continues to make a small amount of urine, denies dysuria. In the ED, patient has had some intermittent hypoxia in the high 80s however is generally saturating well on chronic 5 L of oxygen. Labs show WBC 12.4K, Hgb 7.9, procalcitonin 1.97. CXR is suggestive of a multifocal pneumonia. Head CT shows no acute intracerebral pathology. Interval development of left mastoiditis. CTA chest negative for pulmonary embolism. Patient received IV cefepime, IV diphenhydramine, IV prochlorperazine. Admission Exam Per Admitting Provider Constitutional: WD/WN, vitals as above Eyes: PERRL, conjunctivae normal, anicteric sclerae ENMT: external ear and nose normal, oropharynx normal Respiratory: normal respiratory effort; no respiratory distress Auscultation: + diminished lung sounds Cardiovascular: Rate/Rhythm: regular rate and regular rhythm Vessels: normal peripheral pulses Extremities: no edema Gastrointestinal (Abdomen): normal bowel sounds, soft, nontender, no hepatosplenomegaly Musculoskeletal: no cyanosis or clubbing, extremities motor strength 5/5 Skin: no rashes, warm and dry Neurologic: PERRL, EOMI, accommodation nl, no face palsy, no dysarthria Psychiatric: A+Ox3, euthymic affect Principal Diagnosis Volume overload ESRD on dialysis. Poor adherence to medical treatment Mastoiditis Acute serous otitis media s/p left myringotomy Discharge Exam Constitutional + well hydrated; no acute distress Eyes PERRL, conjunctivae normal, anicteric sclerae Respiratory On nasal cannula at 3l/min, diminished breath sounds lung bases Cardiovascular RRR S1 S2 Gastrointestinal (Abdomen) normal bowel sounds, soft, nontender, no hepatosplenomegaly Musculoskeletal No pedal edema Neurologic PERRL, EOMI, accommodation nl, no face palsy, no dysarthria Psychiatric A+Ox3, euthymic affect Discharge Data Allergies Allergy/AdvReac Type Severity Reaction Status Date / Time No Known Allergies Allergy Unknown Verified 03/15/21 14:41 Consultations 05/02/21 09:19 ED Decision to Admit Stat 05/02/21 14:08 Consult Otolaryngology (Head and Neck) Routine 05/02/21 14:14 Consult Nephrology Routine 05/03/21 17:36 Consult Cardiology Routine Procedures Performed Operation Date: 05/04/21 07:15 Actual Procedures p Left Myringotomy Tube Insertion - Irma Jackman MD Ordered Studies 05/02/21 06:21 CT head/brain wo con Stat Extraaxial space: There is no evidence for subdural hematoma. There are no extra-axial fluid collections. Ventricles and cisterns: The ventricles are normal in size and configuration. There is no evidence for midline shift or mass effect. Parenchyma: There is no subarachnoid or intraparenchymal hemorrhage. There is no evidence for an acute infarct or cerebral edema. There is homogeneous attenuation of the brain parenchyma. There are no gross mass lesions. Osseous structures: There is no evidence for an acute fracture. The visualized paranasal sinuses are clear. There has been interval development of asymmetric mucosal thickening involving the mastoid air cells on the left when compared to the right. Soft tissues: There is no evidence for focal soft tissue swelling. IMPRESSION: No acute intracerebral pathology. Interval development of left mastoiditis. 05/02/21 08:27 CT angio chest PE protocol Urgent No pulmonary emboli are identified. There is no thoracic aortic dissection. Moderate cardiomegaly is noted. No pericardial effusion. There is moderate coronary artery calcification. Enlarged mediastinal and bilateral hilar lymph nodes are noted. These have mildly increased in size since CT of October 13, 2020. Index subcarinal lymph node measures 3.5 x 2.4 cm. It previously measured 3.2 x 1.8 cm. There are trace bilateral pleural effusions, right larger than left. There is extensive interlobular septal thickening and superimposed airspace opacities throughout the lungs. There is no pneumothorax. Mild splenomegaly is partially imaged. This is similar to prior exam. IMPRESSION: 1. No pulmonary emboli identified. 2. Interlobular septal thickening consistent with pulmonary edema. Additional airspace opacities likely reflect alveolar edema. The findings suggest moderate to severe pulmonary edema. 3. Increase in size of mediastinal and bilateral hilar lymph nodes since prior CT. These remain nonspecific. These could be related to pulmonary edema. A granu lomatous or lymphoproliferative process is also within the differential. A follow-up chest CT in 6 months is recommended. 4. Small right and trace left pleural effusions. 5. Moderate cardiomegaly and coronary artery calcification. Hospital Course (1) Volume overload: Noncompliance with HD sessions, however patient has a history of nonischemic cardiomyopathy, also. Additionally, with further questioning, he reports having chronic shortness of breath prior to being on hemodialysis. [employer] recommendations noted Echocardiogram report noted. [employer] ordered SPEP and will follow the results. Counselled patient on need for adherence to dialysis. Patient had 4 days of HD with fluid removal. Lost about 6Kg since admission 2 step show 3l/min at rest (patient's prior requirement) and increase to 6l/min with activity. Patient reports his home O2 goes up to 8l/min (2) Pneumonia: Question of possible pneumonia, however this is more likely pulmonary edema. For now with ongoing mastoiditis infection continue antibiotics. Procalcitonin did increase to 6. This may also be affected by ESRD on HD Repeat CXR show some resolution of opacities Was on antibiotics. Discharged on 2 more days to complete treatment. (3) NICM (nonischemic cardiomyopathy): Patient needs to follow up with Cardiology in 2-3 months (4) ESRD (end stage renal disease) on dialysis: Continue HD (5) Chronic respiratory failure with hypoxia: Back to baseline level of hypoxia today after hemodialysis session yesterday. However, patient reports no improvement in respiratory status or breathing. Asked to see a food and nutrition services supervisor regarding a history of sarcoid. He reports he uses 3l/min or more at home Needs to follow up with Pulm outpatient. He is already scheduled for PFTs in April 26 step show 3l/min at rest (patient's prior requirement) and increase to 6l/min with activity. Patient reports his home O2 goes up to 8l/min. (6) Mastoiditis of left side: -left mastoiditis noted on head CT in the setting of hearing loss for the last 2 months. Had Left myringotomy by Dr Jackman on 05/04/21 Reports hearing problems is resolved Spoke with ENT therapeutic consultant who recommends discharge on Floxin ear drops and patient to follow up with Dr Jackman. Patient provided with office number to call tomorrow for appointment (7) Sarcoidosis: -CT chest shows increase in size of mediastinal and bilateral hilar lymph nodes since prior CT -will need outpatient follow-up with pulmonology -PFTs in Apr (8) Hypertension: chronic, at goal-Continue current medical therapy (9) DM type 1 (diabetes mellitus, type 1): -Hgb A1c 6.4 02/2021 -Continue home regimen. Advised to keep a home blood glucose log (10) Back pain: Tylenol PRN, PT/OT as outpatient recommended. Likely MSK pain related to compensation and guarding of left side recently. Overall appears physically deconditioned. (11) Anemia of chronic disease: -Anemia due to CKD and chronic comorbidities. Currently at baseline, no indication for transfusion at this time. Total Time Total Time Spent Total Time Spent (In Minutes): 60 Discharge Plan Discharge Items Patient Disposition: Home - Self-Care Reason For Visit: Shortness of breath Discharge Diagnosis: Volume overload ESRD on dialysis. Poor adherence to medical treatment Condition on Discharge: Fair Activity: Resume your previous activity Non-emergency contact: Primary Care Provider, [employer] and [employer] Call non-emergency contact if: you have any medication questions and your symptoms worsen Follow-up/Referrals: Irma Jackman MD [Physician] - Jaime Lovelace MD [Primary Care Provider] - (Date & Time 05/14/2021 3:00 PM Provider Jaime Lovelace MD Department [facility] ) Diet: Carb Count or DM1, Dialysis Renal and Heart Healthy Addtl Attending Provider Instructions: Mr Justice. You came to the hospital complaining of shortness of breath. You were evaluated and found to be volume overloaded. You required multiple sessions of hemodialysis with fluid removal. It is very important that you keep with your routine hemodialysis sessions. Please follow up with [employer] Attacher outpatient. Please follow up with Cardiology in 2-3 months You also had acute serous otitis media of left ear for which you Left Myringotomy Tube insertion on 05/04/[address] Jackman. Please avoid swimming for now. Please call Dr Jackman's office tomorrow for follow up appointment. Due to concern for possible pneumonia on chest xray as well, you were started on antibiotics. Please take medication for another 2 days to complete treatment. Please continue to use your oxygen at 3l/min at rest and 6l/min with activity. Please ensure you take your medications and monitor your blood glucose as we discussed. Please keep a blood glucose log to help your Primary Doctor with medication adjustments. Please ensure follow up with your Primary Doctor. It was a pleasure taking care of you. Pending Studies at Discharge: No Stand-Alone Forms: My [facility] Traveler | VIP, Smoking Cessation Medications and DC Order Prescriptions: New ofloxacin 0.3 % drops 10 drp otic (ear) BID 14 Days RF: 0 amoxicillin-pot clavulanate [Augmentin] 500-125 mg tablet 1 tab PO DAILY 2 Days Qty: 2 RF: 0 Continued calcium acetate(phosphat bind) 667 mg Tablet 1,334 mg PO AC RF: 0 amlodipine 10 mg Tablet 10 mg PO HS RF: 0 lisinopril 40 mg Tablet 40 mg PO HS RF: 0 hydralazine 25 mg Tablet 25 mg PO DAILY RF: 0 calcium carbonate [Tums] 200 mg calcium (500 mg) Tablet,Chewable 200 mg PO DAILY PRN (Reason: gastric upset) RF: 0 Myrna-Bello 0.8 mg Tablet 1 tab PO PM RF: 0 albuterol sulfate 90 mcg/actuation HFA aerosol inhaler 2 puff INHALATION Q6 PRN (Reason: Shortness Of Breath Or Wheezing) RF: 0 atorvastatin 40 mg tablet 40 mg PO PM RF: 0 lorazepam 1 mg tablet 1 mg PO UD RF: 0 insulin aspart U-100 [Novolog Flexpen U-100 Insulin] 100 unit/mL (3 mL) insulin pen 16 unit SUBCUT AC RF: 0 torsemide 100 mg tablet 100 mg PO PM RF: 0 trazodone 50 mg tablet 50 mg PO HS RF: 0 aspirin 81 mg tablet,chewable 81 mg PO QPM RF: 0 Basaglar KwikPen U-100 Insulin 100 unit/mL (3 mL) insulin pen 56 unit SUBCUT QAM RF: 0 metoprolol succinate 50 mg tablet extended release 24 hr 50 mg PO BID RF: 0 Discharge Orders: Discharge Order (Routine); Ordered 05/06/21 Ordered By: So Robertson/Other Patient Handouts: Managing Type 1 Diabetes Admission Data Admit Date/Time: 05/02/21 09:07 Attending Provider: So Sanchez I. Admit Provider: Yvette Montero Primary Care Provider: Jaime Lovelace Other Providers: Yvette Montero ; Irma Jackman ; Allen Casillas Other Interventions: Discharge Summary Assessment (RN) Last Done: 05/06/21 11:46
[2021-05-07 17:26] LABS: Albumin 4.2 g/dL (3.8-4.8); Alpha 1 Globulin 0.5 g/dL (0.2-0.3); Beta-1-Globulin 0.4 g/dL (0.4-0.6); Beta-2-Globulin 0.3 g/dL (0.2-0.5); Gamma Globulin 0.8 g/dL (0.8-1.7); Monoclonal Protein Band 1 DNR g/dL (NONE DETECTED); Monoclonal Protein Band 2 DNR g/dL (NONE DETECTED); Monoclonal Protein Band 3 DNR g/dL (NONE DETECTED)
--- NOTE | 2021-05-09 11:59 | Operative Report ---
PG Post Operative Report Pre & Post Diagnosis Operation Date: 05/04/21 07:15 Pre-Op Diagnosis: Acute serous otitis media, left ear Post-Op Diagnosis: Acute serous otitis media, left ear I identified the patient and participated in the time-out.: Yes Procedure Operation Date: 05/04/21 07:15 Actual Procedures p Left Myringotomy Tube Insertion - Irma Jackman MD Surgeon Irma Jackman MD Envelope Maker NONE Estimated Blood Loss 1 Findings Consistent with Post-Op Diagnosis Specimens None Anesthesia Type General Complications None. Description of Procedure Correction to previous op summary. Left ear was visualized with the microscope and cleaned of cerumen. Myringotomy incision was made anterior inferiorly and a Paparella tube was inserted with alligator forceps and Morgan needle. Fluid was suctioned from the middle ear space. He tolerated the procedure well was taken recovery area in satisfactory condition. I attest to the content of the Intraoperative Record and any orders documented therein. Any exceptions are noted below.
== END 2021-05-06 13:30 | disposition home or self-care (01) | DRG 640 ==
LOC: ED 05:35 → SUATTDRO 09:07 → EDINP 09:07 → 2S 20:32

== ENCOUNTER 2021-05-23 07:39 | Inpatient (IN) ==
--- NOTE | 2021-05-23 08:19 | Emergency Department Note ---
Impression & Plan BRBPR (bright red blood per rectum), ESRD (end stage renal disease) on dialysis, Weakness, Hyperkalemia ED Provider Note Provider: Holger Millard MD DATE OF SERVICE: 05/23/2021 CHIEF COMPLAINT: Bloody bowel movements HISTORY OF PRESENT ILLNESS: Patient is a 41-year-old gentleman unfortunate past history including type 1 diabetes, end-stage renal disease, chronic respiratory failure on home oxygen, COPD, nonischemic cardiomyopathy presenting today with onset overnight of bloody bowel movements. Patient endorses a little bit of lower abdominal discomfort and pain. Patient states he has not noticed any bloody bowel movements or black stools before. States started around 2 AM he had at least 4 bowel movements that were dark red in nature. Denies any nausea or vomiting. Patient states he does feel little bit lightheaded with some increased fatigue. Patient denies significant chest pain. Patient is due for dialysis today but discussed with them as well the findings and was referred here. Patient reports a history of anemia in the past and has required blood transfusions he thinks about 3 years ago. Patient denies worsening of his underlying breathing at this time. Patient denies use of aspirin. States he receives heparin with his fistula but otherwise is not on significant anticoagulation. Denies NSAID or alcohol use. REVIEW OF SYSTEMS: A total of 10 review of systems was obtained and negative except as stated above in the HPI. PAST MEDICAL HISTORY: As noted above MEDICATIONS: Reviewed home medications with the patient SOCIAL HISTORY: Patient denies alcohol use PHYSICAL EXAM: GENERAL: alert and oriented in no acute distress on stretcher Head: normocephalic and atraumatic EYES: No injection, discharge or icterus. NECK: Trachea midline. ENT: Mucous membranes pink and moist. LUNGS: Airway patent. No retractions. Breath sounds clear HEART: Regular rate and rhythm. No chest wall tenderness ABDOMEN: Soft and non-tender, without guarding or rebound. SKIN: Acyanotic, warm, dry, without rashes EXTREMITIES: Without swelling, tenderness or deformity with right upper extremity fistula in place with thrill. NEUROLOGICAL: No focal deficits. No aphasia. No facial droop or slurred speech. Ambulatory. EK bpm normal sinus rhythm. Left axis noted. No acute ST segment elevation or depression. QTC 476. CONTINUOUS CARDIAC MONITORING: was ordered and showed a heart rate of bpm in normal sinus rhythm Patient's laboratory studies and imaging reviewed. Differential includes Diverticulosis, AVM, coagulopathy, colitis, inflammatory bowel disease, malignancy, Lucero-Scherer tear, esophagitis, peptic ulcer disease, variceal bleed, gastritis, epistaxis, fissure, hemorrhoids, as well as other pathologies. IMPRESSION/MEDICAL DECISION MAKING: Patient presents complaining of 4 episodes of dark red blood per rectum developing overnight. History of chronic anemia from ESRD. Due for dialysis today in dialysis referred here. Patient endorses some generalized weakness and lightheadedness. Denies any increased shortness of breath. Patient denies alcohol or NSAID usage. Denies a history of GI ulceration. Endorses some lower abdominal discomfort. CT scan of the abdomen pelvis obtained without contrast given his renal function without evidence of acute intra-abdominal pathology noted. Patient on his baseline oxygen. Blood work shows elevated creatinine and mildly elevated potassium consistent with his need for dialysis today. Hemoglobin shows stable anemia with a hemoglobin of 9.0. Patient given some Protonix here. No evidence of acute hepatitis based on laboratory studies. Troponin minimally detectable not elevated and doubt ACS. Given the patient's multiple comorbidities and medical history no concerns for possible significant GI bleed developing and given this feel that further observation would be indicated. Discussed with hospitalist team. Patient was agreeable with this plan. DIAGNOSIS: Right red blood per rectum, hyperkalemia, ESRD on dialysis, weakness DISPOSITION: Hospitalist will evaluate Patient was agreeable with this plan. Past Med/Surg History Medical History A-V fistula right Anemia Chronic respiratory failure with hypoxia Chronic systolic CHF (congestive heart failure) Diabetes IDDM (Type 1 per records) Dyslipidemia End stage renal disease diaylsis - M,W,F ([facility], [place]) History of colon polyps Hypertension NICM (nonischemic cardiomyopathy) Non compliance w medication regimen Obesity On home O2 on 2-3L at rest, up to 5L w/ exertion Poor historian Sarcoidosis per records Seizure disorder remote hx (2007) in setting of hypoglycemia (?ETOH related per records), no issues since Surgical History History of cardiac cath History of colonoscopy 01/25/21 [facility] History of esophagogastroduodenoscopy (EGD) 01/22/21 [facility] History of lung surgery removal of benign nodule History of surgery removal of permacath History of vascular access device permacath insertion Hx of biopsy kidney bx PONV (postoperative nausea and vomiting) Status post creation of arteriovenous fistula right: 07/15/17: MAC sedation at [facility] Family History Father Hypertension Social History Smoking Status: Never smoker Tobacco Type: Cigarettes Years Smoked: 2; Second Hand Exposure: No; Hx Alcohol Use: No Hx Substance Use: No Preferred Language: French Communication Ability: Effective Director Power Required: No Beliefs That Will Affect Care: None Current Living Situation: Alone Current Living Situation Comment: Roommate Feels Safe at Home: Yes Assistive Devices: Glasses and Oxygen - Continuous Allergies Allergies Allergy/AdvReac Type Severity Reaction Status Date / Time No Known Allergies Allergy Unknown Verified 05/23/21 09:24 Home Meds Home Medications Medication Instructions Recorded Confirmed amlodipine 10 mg tablet 10 mg PO HS 06/11/19 05/23/21 calcium acetate(phosphat bind) 667 1,334 mg PO AC 06/11/19 05/23/21 mg tablet lisinopril 40 mg tablet 40 mg PO HS 06/11/19 05/23/21 hydralazine 25 mg tablet 25 mg PO HS 02/03/20 05/23/21 vitamin B complex-vitamin C-folic 1 tab PO HS 02/03/20 05/23/21 acid 0.8 mg tablet (Myrna-Bello) albuterol sulfate 90 mcg/actuation 2 puff INHALATION Q6 PRN 10/13/20 05/23/21 aerosol inhaler atorvastatin 40 mg tablet 40 mg PO HS 10/13/20 05/23/21 insulin aspart U-100 100 unit/mL 16 unit SUBCUT AC 10/13/20 05/23/21 (3 mL) subcutaneous pen (Novolog Flexpen U-100 Insulin aspart) lorazepam 1 mg tablet 1 mg PO UD 10/13/20 05/23/21 torsemide 100 mg tablet 100 mg PO HS 10/13/20 05/23/21 aspirin 81 mg chewable tablet 81 mg PO HS 01/29/21 05/23/21 insulin glargine 100 unit/mL (3 56 unit SUBCUT QAM 01/29/21 05/23/21 mL) subcutaneous pen (Basaglar KwikPen U-100 Insulin) metoprolol succinate 50 mg 50 mg PO BID 05/02/21 05/23/21 tablet,extended release 24 hr lidocaine-prilocaine 2.5 %-2.5 % 1 applic TOPICAL [id number] 05/23/21 05/23/21 topical cream trazodone 100 mg tablet 100 mg PO HS 05/23/21 05/23/21 Results & Data (ED) Vital Signs Vital Signs - 24 hr 05/23/21 07:41 05/23/21 08:13 05/23/21 08:18 Temperature 36.7 C Temperature Source Temporal Artery Scan Pulse Rate 83 61 82 Pulse Rate [Apical] Pulse Rate from SpO2 Sensor 82 Respiratory Rate 20 22 16 Respiratory Effort / Characteristics Respiratory Depth Respiratory Pattern Blood Pressure 165/96 H Blood Pressure [Left Arm] Blood Pressure Mean 119 Blood Pressure Mean [Left Arm] Blood Pressure Position Sitting Pulse Oximetry 94 91 95 Oxygen Delivery Method Nasal Cannula Nasal Cannula Room Air Oxygen Flow Rate 5 3 3 Sepsis Recent Fever Within 48 Hours No Sepsis New/Unexplained Change in Mental Status No Sepsis Action Taken by Nursing No Action Required 05/23/21 08:19 05/23/21 08:30 05/23/21 09:00 Temperature Temperature Source Pulse Rate 79 83 Pulse Rate [Apical] 61 Pulse Rate from SpO2 Sensor 80 Respiratory Rate 22 16 19 Respiratory Effort / Characteristics Non-Labored Spontaneous Respiratory Depth Normal Respiratory Pattern Regular Blood Pressure Blood Pressure [Left Arm] 138/68 Blood Pressure Mean Blood Pressure Mean [Left Arm] 91 Blood Pressure Position Pulse Oximetry 91 95 Oxygen Delivery Method Nasal Cannula Oxygen Flow Rate 3 Sepsis Recent Fever Within 48 Hours Sepsis New/Unexplained Change in Mental Status Sepsis Action Taken by Nursing 05/23/21 09:07 05/23/21 09:30 05/23/21 10:00 Temperature Temperature Source Pulse Rate 85 85 83 Pulse Rate [Apical] Pulse Rate from SpO2 Sensor Respiratory Rate 20 16 15 Respiratory Effort / Characteristics Respiratory Depth Respiratory Pattern Blood Pressure 178/111 H 197/108 H 163/85 H Blood Pressure [Left Arm] Blood Pressure Mean 133 137 111 Blood Pressure Mean [Left Arm] Blood Pressure Position Pulse Oximetry 92 Oxygen Delivery Method Nasal Cannula Oxygen Flow Rate 3 Sepsis Recent Fever Within 48 Hours Sepsis New/Unexplained Change in Mental Status Sepsis Action Taken by Nursing Laboratory Data Result diagrams: 05/23/21 08:25 05/23/21 08:25 Lab Results 05/23/21 05/23/21 05/23/21 Range/Units 08:25 08:25 08:25 WBC 8.67 (4.8-10.8) K/uL RBC 3.22 L (4.7-6.1) M/uL Hgb 9.0 L (14.0-18.0) g/dL Hct 28.9 L (42-52) % MCV 89.8 (80-100) fL MCH 28.0 (25-34) pg MCHC 31.1 L (32-36) g/dL RDW Std Deviation 56.5 H (36.4-46.3) fL RDW Coeff of Selin 17.0 H (11.5-14.5) % Plt Count 254 (130-400) K/uL MPV 9.2 (7.4-10.4) fL Immature Gran % (Auto) 0.5 % Neut % (Auto) 79.1 % Lymph % (Auto) 12.8 % [place] % (Auto) 1.5 % Eos % (Auto) 5.5 % Baso % (Auto) 0.6 % Neut # (Auto) 6.86 H (1.4-6.5) K/uL Lymph # (Auto) 1.11 L (1.2-3.4) K/uL [place] # (Auto) 0.13 (0.11-0.59) K/uL Eos # (Auto) 0.48 (0-0.5) K/uL Baso # (Auto) 0.05 (0-0.2) K/uL Immature Gran # (Auto) 0.04 H (0.00-0.02) K/uL PT 9.8 (9.0-12.0) Seconds INR 1.0 (0.9-1.1) APTT 25.8 (21.0-31.0) Seconds PTT Ratio 1.0 Sodium (136-145) mmol/L Potassium (3.5-5.1) mmol/L Chloride (98-107) mmol/L Carbon Dioxide (21-32) mmol/L Anion Gap (3-11) BUN (7-18) mg/dl Creatinine (0.6-1.4) mg/dl Est Cr Clr Drug Dosing ml/min Est GFR ( Amer) ml/min Est GFR (Non-Af Amer) ml/min BUN/Creatinine Ratio (10-20) Glucose (70-99) mg/dl Calcium (8.5-10.1) mg/dl Total Bilirubin (0.2-1) mg/dl AST (15-37) U/L ALT (12-78) Alkaline Phosphatase (45-117) U/L Troponin I (0-0.045) ng/ml Total Protein (6.4-8.2) gm/dl Albumin (3.4-5.0) gm/dl Globulin (2.5-4.0) gm/dl Albumin/Globulin Ratio (0.9-2) Beta-Hydroxybutyric Acd (0.2-2.81) mg/dl SARS-CoV-2, RNA, NAAT (NEGATIVE) Blood Type O Positive Antibody Screen NEGATIVE Crossmatch See Detail 05/23/21 05/23/21 Range/Units 08:25 10:17 WBC (4.8-10.8) K/uL RBC (4.7-6.1) M/uL Hgb (14.0-18.0) g/dL Hct (42-52) % MCV (80-100) fL MCH (25-34) pg MCHC (32-36) g/dL RDW Std Deviation (36.4-46.3) fL RDW Coeff of Selin (11.5-14.5) % Plt Count (130-400) K/uL MPV (7.4-10.4) fL Immature Gran % (Auto) % Neut % (Auto) % Lymph % (Auto) % [place] % (Auto) % Eos % (Auto) % Baso % (Auto) % Neut # (Auto) (1.4-6.5) K/uL Lymph # (Auto) (1.2-3.4) K/uL [place] # (Auto) (0.11-0.59) K/uL Eos # (Auto) (0-0.5) K/uL Baso # (Auto) (0-0.2) K/uL Immature Gran # (Auto) (0.00-0.02) K/uL PT (9.0-12.0) Seconds INR (0.9-1.1) APTT (21.0-31.0) Seconds PTT Ratio Sodium 132 L (136-145) mmol/L Potassium 5.4 H (3.5-5.1) mmol/L Chloride 100 (98-107) mmol/L Carbon Dioxide 23 (21-32) mmol/L Anion Gap 9.0 (3-11) BUN 61 H (7-18) mg/dl Creatinine 9.07 H* (0.6-1.4) mg/dl Est Cr Clr Drug Dosing 12.9 ml/min Est GFR ( Amer) 7.6 ml/min Est GFR (Non-Af Amer) 6.6 ml/min BUN/Creatinine Ratio 6.8 L (10-20) Glucose 339 H* (70-99) mg/dl Calcium 9.4 (8.5-10.1) mg/dl Total Bilirubin 0.4 (0.2-1) mg/dl AST 7 L (15-37) U/L ALT 31 (12-78) Alkaline Phosphatase 81 (45-117) U/L Troponin I 0.039 (0-0.045) ng/ml Total Protein 7.0 (6.4-8.2) gm/dl Albumin 3.4 (3.4-5.0) gm/dl Globulin 3.6 (2.5-4.0) gm/dl Albumin/Globulin Ratio 0.9 (0.9-2) Beta-Hydroxybutyric Acd 2.27 (0.2-2.81) mg/dl SARS-CoV-2, RNA, NAAT NEGATIVE (NEGATIVE) Blood Type Antibody Screen Crossmatch Administered Medications Discontinued Medications Hydromorphone HCl (Hydromorphone Inj 0.5 Mg/0.5 Ml Syr) 0.25 mg IV NOW STA Stop: 05/23/21 11:38 Last Admin: 05/23/21 11:42 Dose: 0.25 mg Documented by: [id number] Pantoprazole Sodium 80 mg/ (Dextrose) 100 mls @ 400 mls/hr IV ONE STA Stop: 05/23/21 09:41 Last Infusion: 05/23/21 09:59 Dose: 0 mls/hr Documented by: [id number] Admin: 05/23/21 09:37 Dose: 400 mls/hr Documented by: [id number] Insulin Aspart (Insulin Aspart Per Unit) 0 units SC Q6 CHENG Stop: 06/22/21 10:29 Last Admin: 05/23/21 11:39 Dose: 11 units Documented by: [id number] Cosigned by: [id number] Insulin Glargine (Insulin Glargine Solostar 100 Units/Ml 3 Ml Pen) 15 units SC NOW ONE Stop: 05/23/21 10:31 Last Admin: 05/23/21 11:14 Dose: 15 units Documented by: [id number] Cosigned by: [id number] Imaging Data Radiologist's Impression: Abdomen/Pelvis CT 05/23/21 08:08 CT OF THE ABDOMEN AND PELVIS WITHOUT CONTRAST CLINICAL HISTORY: gi bleed, lower abdominal pain COMPARISON STUDY: CT of the abdomen August 09, 2007. Chest CT May 02, 2021. TECHNIQUE: Axial images of the abdomen and pelvis were obtained without IV contrast. Images were reviewed in the axial, sagittal, and coronal planes. Automated exposure control was utilized for the study. A dose lowering techni que was utilized adhering to the principles of ALARA. FINDINGS: Calcified granulomas within the lower lungs are noted. Note is made of interlobular septal thickening and groundglass opacities within visualized portions of the lungs. Cardiomegaly is noted. Evaluation of the abdomen and pelvis is suboptimal on this unenhanced examination. No pneumatosis, free air or portal venous gas is present. There is mild splenomegaly. No biliary or pancrea tic ductal dilatation is noted. There is no hydronephrosis. Moderate bilateral renal atrophy is noted. There are no urinary calculi. No peripancreatic or pericholecystic infiltration is present. Extensive atherosclerotic plaque is present. There is no evidence for a bowel obstruction. The appendix is normal. Sensitivity for detection of mucosal lesions is diminished given CT technique. No abdominal or pelvic lymphadenopathy is present. There is no fluid collection to suggest an abscess. Small fat-containing umbilical hernia is present. No acute fracture or suspicious lesion is identified within the visualized skeletal structures. There is minimal subcutaneous stranding of the anterior abdominal wall. IMPRESSION: 1. No bowel obstruction. No bowel wall thickening identified on unenhanced exam. 2. Interlobular septal thickening within the lower lungs consistent with interstitial pulmonary edema. Alveolar opacities likely reflect alveolar edema. An infectious process is considered less likely. 3. Renal atrophy. 4. Mild splenomegaly. ACT 112: Negative or not required by law. Electronically signed by: Silverio Krishnamurthy M.D. 05/23/2021 9:18 AM Discharge Plan Visit Data Chief Complaint: Bleeding Stated Complaint: BLOODY STOOL ED Provider: Holger Millard Discharge Problem: BRBPR (bright red blood per rectum), ESRD (end stage renal disease) on dialysis, Weakness, Hyperkalemia Patient Disposition: Being Evaluated by Hospitalist Discharge Instructions Interventions: ED Discharge Assessment Last Done: 05/23/21 12:08
[2021-05-23 08:48] LABS: Basophils # (auto) 0.05 K/uL (0-0.2); Basophils % (auto) 0.6 %; Eosinophils # (auto) 0.48 K/uL (0-0.5); Eosinophils % (auto) 5.5 %; Hematocrit (blood only) 28.9 % (42-52); Immature Granulocytes # (auto) 0.04 K/uL (0.00-0.02); Immature Granulocytes % (auto) 0.5 %; Lymphocytes # (auto) 1.11 K/uL (1.2-3.4); Lymphocytes % (auto) 12.8 %; Mean Corpuscular Hgb Conc 31.1 g/dL (32-36); Mean Corpuscular Volume 89.8 fL (80-100); Mean Platelet Volume 9.2 fL (7.4-10.4); Monocytes # (auto) 0.13 K/uL (0.11-0.59); Monocytes % (auto) 1.5 %; Neutrophils # (auto) 6.86 K/uL (1.4-6.5); Neutrophils % (auto) 79.1 %; Platelet Count 254 K/uL (130-400); RDW Standard Deviation 56.5 fL (36.4-46.3); Red Blood Count 3.22 M/uL (4.7-6.1); White Blood Count 8.67 K/uL (4.8-10.8)
[2021-05-23 08:56] LABS: Partial Thromboplastin Time 25.8 Seconds (21.0-31.0); Prothrombin Time 9.8 Seconds (9.0-12.0)
--- NOTE | 2021-05-23 09:19 | CT Scan Report ---
CT OF THE ABDOMEN AND PELVIS WITHOUT CONTRAST CLINICAL HISTORY: gi bleed, lower abdominal pain COMPARISON STUDY: CT of the abdomen August 09, 2007. Chest CT May 02, 2021. TECHNIQUE: Axial images of the abdomen and pelvis were obtained without IV contrast. Images were revi ewed in the axial, sagittal, and coronal planes. Automated exposure control was utilized for the maurizio dy. A dose lowering technique was utilized adhering to the principles of ALARA. FINDINGS: Calcified granulomas within the lower lungs are noted. Note is made of interlobular septal thickening and groundglass opacities within visualized portions of the lungs. Cardiomegaly is noted. Evaluation of the abdomen and pelvis is suboptimal on this unenhanced examination. No pneumatosis, fr ee air or portal venous gas is present. There is mild splenomegaly. No biliary or pancreatic ductal d ilatation is noted. There is no hydronephrosis. Moderate bilateral renal atrophy is noted. There are no urinary calculi. No peripancreatic or pericholecystic infiltration is present. Extensive atherosc lerotic plaque is present. There is no evidence for a bowel obstruction. The appendix is normal. Sens itivity for detection of mucosal lesions is diminished given CT technique. No abdominal or pelvic lym phadenopathy is present. There is no fluid collection to suggest an abscess. Small fat-containing umb ilical hernia is present. No acute fracture or suspicious lesion is identified within the visualized skeletal structures. There is minimal subcutaneous stranding of the anterior abdominal wall. IMPRESSION: 1. No bowel obstruction. No bowel wall thickening identified on unenhanced exam. 2. Interlobular septal thickening within the lower lungs consistent with interstitial pulmonary mary a. Alveolar opacities likely reflect alveolar edema. An infectious process is considered less likely. 3. Renal atrophy. 4. Mild splenomegaly. ACT 112: Negative or not required by law. Electronically signed by: Silverio Krishnamurthy M.D. 05/23/2021 9:18 AM
[2021-05-23 09:26] LABS: Albumin Globulin Ratio 0.9 (0.9-2); Albumin Level 3.4 gm/dl (3.4-5.0); BUN Creatinine Ratio 6.8 (10-20); Bilirubin,Total 0.4 mg/dl (0.2-1); Calcium 9.4 mg/dl (8.5-10.1); Creatinine Clr Calc Pharmacy 12.9 ml/min; Est GFR (African American) 7.6 ml/min; Est GFR (Non-African American) 6.6 ml/min; Globulin 3.6 gm/dl (2.5-4.0); Potassium 5.4 mmol/L (3.5-5.1); Troponin I 0.039 ng/ml (0-0.045)
[2021-05-23] MEDS ORDERED: PANTOprazole 80 MG in DEXTROSE 5% 100 ML IV STA (09:27)
[2021-05-23 09:40] LABS: Beta-Hydroxybutyrate 2.27 mg/dl (0.2-2.81)
[2021-05-23] MEDS ORDERED: DEXTROSE 50% 50 ML SYRINGE IV PRN ×2 (10:30→12:04)
[2021-05-23] MEDS ORDERED: CARBOHYDRATES FOR HYPOGLYCEMIA PO PRN ×2 (10:30→12:04)
[2021-05-23] MEDS ORDERED: GLUCOSE 10 TABS/TUBE PO PRN ×2 (10:30→12:04)
[2021-05-23] MEDS ORDERED: GLUCAGON FOR INJ 1 MG VIAL IM PRN (10:30)
[2021-05-23] MEDS ORDERED: GLUCOSE 40% GEL 15 GM TUBE PO PRN ×2 (10:30→12:04)
[2021-05-23] MEDS ORDERED: INSULIN GLARGINE SOLOSTAR 100 UNITS/ML 3 ML PEN SC ONE (10:30)
--- NOTE | 2021-05-23 10:39 | History & Physical Report ---
Date of Service May 23, 2021 Assessment & Plan (1) BRBPR (bright red blood per rectum): Plan: - Admit to tele - Trend H&H Q8H - Consult GI - previously has followed with Dr. Chavarria - noted large rectal polyp on last colonoscopy on 01/25/21 - possibly source of bleed vs diverticular? -Hemoglobin is 9.0 on admission, no need for transfusion currently -Guaiac stools -CT of the abdomen is negative for acute findings -Keep n.p.o. except sips and chips of ice -No need for transfusion at this time, consider transfusion if hemoglobin would drop to 7.0 (2) ESRD (end stage renal disease) on dialysis: Plan: - Nephro consulted for HD, typically gets MWF sessions - K is 5.4,Cr. 9.07, BUN 61 (3) DM type 1 (diabetes mellitus, type 1): Plan: -Hgb A1c 6.4 02/2021 - Cut lantus in half while NPO and hold novolog with meal dosing for now. - ISS with accuchecks achs - Given Lantus 15 U this morning (4) Chronic systolic CHF (congestive heart failure): Plan: - hx of such, does not appear volume overloaded at all currently, dry weight per pt report is 100 kg - Cont asa, atorvastatin, amlodipine, hydralazine, lisinopril,metoprolol, and torsemide (5) NICM (nonischemic cardiomyopathy): Plan: - Consider cardiology consult, for now recommend follow up as outpt - medications as above (6) Hypertension: Plan: - Continue LEGAL BILLING COORDINATOR medications as above (7) Dyslipidemia: Plan: - Cont statin thereapy (8) ESRD (end stage renal disease) on dialysis: Plan: - HD as above per nephro (9) Chronic respiratory failure with hypoxia: Plan: - He reports he uses 3l/min or more at home, 6L with exertion. - Needs to follow up with Pulm outpatient. He was scheduled for PFTs in April but cancelled that appt. (10) Sarcoidosis: Plan: -CT chest shows increase in size of mediastinal and bilateral hilar lymph nodes since prior CT -will need outpatient follow-up with pulmonology -PFTs were scheduled for earlier this month but pt cancelled scheduled outpt appt on May 17 (11) Anemia of chronic disease: Plan: -Anemia due to CKD and chronic comorbidities. Currently at baseline, no indication for transfusion at this time. DVT ppx: - teds, no chemical ppx in the setting of GIB CODE: Full Dispo: From home, likely to remain in the hospital x 1-2 days History of Present Illness Chief Complaint: Dark maroon stools Primary Care Provider: Jaime Lovelace MD This is a 41 yo M with PMhx of DM type I, ESRD on hemodialysis MWF, nephrotic syndrome, nonischemic cardiomyopathy, Chronic systolic CHF, HTN, HLD, sarcoidosis, medical noncompliance. He was recently hospitalized earlier this month from 05/02-05/06 due to shortness of breath due to volume overload, likely from his noncompliance with HD sessions, as well as having mastoiditis of the left side and has been followed by Dr. Jackman. Mr. Justice presents with new onset of dark maroon stools which began around 2 AM. He went to his regular schedule dialysis([facility]) this morning however did not undergo any treatment based off of his complaints of having bleeding and was referred to the ER. Patient admits to generalized LLQ and lower abdominal pain, but denies nausea or vomiting. He did not have any abdominal complaints as of yesterday. He admits to some lightheadedness and dizziness this morning and generalized feeling unwell. He denies any shortness of breath while sitting at rest on 3 L, which is his baseline. He typically requires 6 L with exertion. His dry weight is 100 kg. Denies swelling in his legs, feets or fingers. He denies any chest pain, palpitations or flutter. Of note he reports congestion in his sinuses has been persistent since the last time he was here in the hospital, and that he has seen Dr. Jackman. He denies postnasal drip, drainage or any known COVID-19 exposure. Patient lives with roommates at home. He denies any alcohol, tobacco or illicit drug use. He has been poorly compliant with follow-ups per his outpatient chart review. In the ER his hemoglobin was found to be 9.0. He does have a history of being transfused many months ago. Several months ago he underwent an EGD by [facility] where it was negative for any acute findings. Recent colonoscopy shows a large recta polyp which was recommended to be removed. He does have an outpatient GI follow-up with Dr. Chavarria in June per epic review. Allergies Allergy/AdvReac Type Severity Reaction Status Date / Time No Known Allergies Allergy Unknown Verified 05/23/21 09:24 Home Medications Medication Instructions Recorded Confirmed Type amlodipine 10 mg tablet 10 mg PO HS 06/11/19 05/23/21 History calcium acetate(phosphat bind) 667 1,334 mg PO AC 06/11/19 05/23/21 History mg tablet lisinopril 40 mg tablet 40 mg PO HS 06/11/19 05/23/21 History hydralazine 25 mg tablet 25 mg PO HS 02/03/20 05/23/21 History vitamin B complex-vitamin C-folic 1 tab PO HS 02/03/20 05/23/21 History acid 0.8 mg tablet (Myrna-Bello) albuterol sulfate 90 mcg/actuation 2 puff INHALATION Q6 PRN 10/13/20 05/23/21 History aerosol inhaler atorvastatin 40 mg tablet 40 mg PO HS 10/13/20 05/23/21 History insulin aspart U-100 100 unit/mL 16 unit SUBCUT AC 10/13/20 05/23/21 History (3 mL) subcutaneous pen (Novolog Flexpen U-100 Insulin aspart) lorazepam 1 mg tablet 1 mg PO UD 10/13/20 05/23/21 History torsemide 100 mg tablet 100 mg PO HS 10/13/20 05/23/21 History aspirin 81 mg chewable tablet 81 mg PO HS 01/29/21 05/23/21 History insulin glargine 100 unit/mL (3 56 unit SUBCUT QAM 01/29/21 05/23/21 History mL) subcutaneous pen (Basaglar KwikPen U-100 Insulin) metoprolol succinate 50 mg 50 mg PO BID 05/02/21 05/23/21 History tablet,extended release 24 hr lidocaine-prilocaine 2.5 %-2.5 % 1 applic TOPICAL 3XWK 05/23/21 05/23/21 History topical cream trazodone 100 mg tablet 100 mg PO HS 05/23/21 05/23/21 History Past Med/Surg History Medical History A-V fistula right Anemia Chronic respiratory failure with hypoxia Chronic systolic CHF (congestive heart failure) Diabetes IDDM (Type 1 per records) Dyslipidemia End stage renal disease diaylsis - M,W,F ([facility], [place]) History of colon polyps Hypertension NICM (nonischemic cardiomyopathy) Non compliance w medication regimen Obesity On home O2 on 2-3L at rest, up to 5L w/ exertion Poor historian Sarcoidosis per records Seizure disorder remote hx (2007) in setting of hypoglycemia (?ETOH related per records), no issues since Surgical History History of cardiac cath History of colonoscopy 01/25/21 [facility] History of esophagogastroduodenoscopy (EGD) 01/22/21 [facility] History of lung surgery removal of benign nodule History of surgery removal of permacath History of vascular access device permacath insertion Hx of biopsy kidney bx PONV (postoperative nausea and vomiting) Status post creation of arteriovenous fistula right: 07/15/17: MAC sedation at [facility] Family History Father Hypertension Social History Smoking Status: Never smoker Tobacco Type: Cigarettes Years Smoked: 2; Second Hand Exposure: No; Hx Alcohol Use: No Hx Substance Use: No Preferred Language: Bahamian Communication Ability: Effective Powerbuilder Required: No Beliefs That Will Affect Care: None Current Living Situation: Alone Current Living Situation Comment: Roommate Feels Safe at Home: Yes Assistive Devices: Glasses and Oxygen - Continuous Review of Systems Review of Systems: Constitutional: No fever, sweats or chills Eyes: No diplopia, no worsening or blurred vision ENT: normal hearing, no trouble swallowing, + maxillary sinus congestion Respiratory: No cough, sputum, dyspnea at rest or on exertion, +chronic O2 use. Cardiovascular: No chest pain, tightness or palpitations Abdomen: As per HPI. + Diffuse generalized pain more in the LLQ, no nausea, vomiting, diarrhea or constipation. + Dark maroon stools. Musculoskeletal: No joint pain, calf pain, swelling Neurologic: No weakness, numbness/tingling, or balance problems Psychiatric: No anxiety or depression Skin: No rash or itch Physical Exam Physical Exam: General: awake, alert, no apparent distress, + Obese, + flat affect, + many tattoos Head: Normocephalic, atraumatic ENT: PERRL, EOMI, no pharyngeal exudate, mucous membranes moist, TM visualized bilaterally without erythema, edema, no fluid level, pearly green TM bilaterally. Chest: Poor inspiratory effort but clear to auscultation, on3L via NC, no adventitious breath sounds Cardiac: Regular rate and rhythm, no murmur, no JVD, normal peripheral pulses, good capillary refill Abdominal: NABS x 4 quadrants, soft, nondistended, minimally tender to palpation, no rebound or guarding Extremities: Normal inspection, no peripheral edema or erythema, calfs nontender to palpation Psych: Depressed mood and flat affect, irritated at times during discussion about NPO status. Neuro: AAO x 3, strength intact bilaterally and rated 5/5, no motor deficits, speech is clear, no peripheral sensory deficits Results & Data Results & Data ([facility]) Vital Signs (Past 12 Hours) Vital Signs Temp Pulse Pulse Resp BP BP Pulse Ox 05/23/21 10:00 83 15 163/85 H 92 05/23/21 09:30 85 16 197/108 H 05/23/21 09:07 85 20 178/111 H 05/23/21 09:00 83 19 05/23/21 08:30 79 16 95 05/23/21 08:19 61 22 138/68 91 05/23/21 08:18 82 16 95 05/23/21 08:13 61 22 91 05/23/21 07:41 36.7 C 83 20 165/96 H 94 Laboratory Results 05/23/21 05/23/21 05/23/21 11:27 10:17 08:25 WBC RBC Hgb Hct MCV MCH MCHC RDW Std Deviation RDW Coeff of Selin Plt Count MPV Immature Gran % (Auto) Neut % (Auto) Lymph % (Auto) [place] % (Auto) Eos % (Auto) Baso % (Auto) Neut # (Auto) Lymph # (Auto) [place] # (Auto) Eos # (Auto) Baso # (Auto) Immature Gran # (Auto) PT INR APTT PTT Ratio Sodium 132 L Potassium 5.4 H Chloride 100 Carbon Dioxide 23 Anion Gap 9.0 BUN 61 H Creatinine 9.07 H* Est Cr Clr Drug Dosing 12.9 Est GFR ( Amer) 7.6 Est GFR (Non-Af Amer) 6.6 BUN/Creatinine Ratio 6.8 L Glucose 339 H* POC Glucose 407 H* Calcium 9.4 Total Bilirubin 0.4 AST 7 L ALT 31 Alkaline Phosphatase 81 Troponin I 0.039 Total Protein 7.0 Albumin 3.4 Globulin 3.6 Albumin/Globulin Ratio 0.9 Beta-Hydroxybutyric Acd 2.27 SARS-CoV-2, RNA, NAAT NEGATIVE Blood Type Antibody Screen 05/23/21 05/23/21 05/23/21 08:25 08:25 08:25 WBC 8.67 RBC 3.22 L Hgb 9.0 L Hct 28.9 L MCV 89.8 MCH 28.0 MCHC 31.1 L RDW Std Deviation 56.5 H RDW Coeff of Selin 17.0 H Plt Count 254 MPV 9.2 Immature Gran % (Auto) 0.5 Neut % (Auto) 79.1 Lymph % (Auto) 12.8 [place] % (Auto) 1.5 Eos % (Auto) 5.5 Baso % (Auto) 0.6 Neut # (Auto) 6.86 H Lymph # (Auto) 1.11 L [place] # (Auto) 0.13 Eos # (Auto) 0.48 Baso # (Auto) 0.05 Immature Gran # (Auto) 0.04 H PT 9.8 INR 1.0 APTT 25.8 PTT Ratio 1.0 Sodium Potassium Chloride Carbon Dioxide Anion Gap BUN Creatinine Est Cr Clr Drug Dosing Est GFR ( Amer) Est GFR (Non-Af Amer) BUN/Creatinine Ratio Glucose POC Glucose Calcium Total Bilirubin AST ALT Alkaline Phosphatase Troponin I Total Protein Albumin Globulin Albumin/Globulin Ratio Beta-Hydroxybutyric Acd SARS-CoV-2, RNA, NAAT Blood Type O Positive Antibody Screen NEGATIVE Diagnostic Findings Abdomen/Pelvis CT 05/23/21 08:08 CT OF THE ABDOMEN AND PELVIS WITHOUT CONTRAST CLINICAL HISTORY: gi bleed, lower abdominal pain COMPARISON STUDY: CT of the abdomen August 09, 2007. Chest CT May 02, 2021. TECHNIQUE: Axial images of the abdomen and pelvis were obtained without IV contrast. Images were reviewed in the axial, sagittal, and coronal planes. Automated exposure control was utilized for the study. A dose lowering technique was utilized adhering to the principles of ALARA. FINDINGS: Calcified granulomas within the lower lungs are noted. Note is made of interlobular septal thickening and groundglass opacities within visualized portions of the lungs. Cardiomegaly is noted. Evaluation of the abdomen and pelvis is suboptimal on this unenhanced examination. No pneumatosis, free air or portal venous gas is present. There is mild splenomegaly. No biliary or pancreatic ductal dilatation is noted. There is no hydronephrosis. Moderate bilateral renal atrophy is noted. There are no urinary calculi. No peripancreatic or pericholecystic infiltration is present. Extensive atherosclerotic plaque is present. There is no evidence for a bowel obstruction. The appendix is normal. Sensitivity for detection of mucosal lesions is diminished given CT technique. No abdominal or pelvic lymphadenopathy is present. There is no fluid collection to suggest an abscess. Small fat- containing umbilical hernia is present. No acute fracture or suspicious lesion is identified within the visualized skeletal structures. There is minimal subcutaneous stranding of the anterior abdominal wall. IMPRESSION: 1. No bowel obstruction. No bowel wall thickening identified on unenhanced exam. 2. Interlobular septal thickening within the lower lungs consistent with interstitial pulmonary edema. Alveolar opacities likely reflect alveolar edema. An infectious process is considered less likely. 3. Renal atrophy. 4. Mild splenomegaly. ACT 112: Negative or not required by law. Electronically signed by: Silverio Krishnamurthy M.D. 05/23/2021 9:18 AM ECG Additional Comments: Vent. Rate : 082 BPM Atrial Rate : 082 BPM P-R Int : 166 ms QRS Dur : 090 ms QT Int : 408 ms P-R-T Axes : 048 -30 057 degrees QTc Int : 476 ms Normal sinus rhythm Possible Left atrial enlargement Left axis deviation Abnormal ECG When compared with ECG of 02-MAY-2021 05:48, No significant change was found Code Status & VTE Plan Code Status Full code Supervising Physician Co-Signing Physician Notes Attending addendum: The patient was seen and examined in emergency room Is a 41-year-old male with significant complicated past medical history including illness renal disease on hemodialysis, type 1 diabetes, COPD on home oxygen, nonischemic cardiomyopathy apparently has been complaining of bright red blood per rectum since 2 AM today. He complains to have some abdominal discomfort especially around his ventral hernia site. He denies any other symptoms of fluid overload at this time. Denies any chest pain and/or palpitation. On examination Sitting at the edge of the bed without any apparent distress His blood pressure was noted to be high at 182/99 Chest-clear to auscultate bilaterally Heart-S1-S2 with a 2/6 systolic murmur over precordium Abdomen-distended, soft, has ventral hernia without obstruction, bowel sound present Extremities-no edema His admission labs, EKG and imaging studies reviewed Has bright red blood per rectum with history of rectal polyp and prior history of GI bleed with end-stage renal disease on hemodialysis Hemoglobin 9 on admission and will monitor H&H and GI will be consulted Nephrology has been consulted as well to continue dialysis Agree with assessment and plan as outlined above by RUBINA Birch Dr
--- NOTE | 2021-05-23 11:25 | Electrocardiogram Report ---
Test Reason : Blood Pressure : / mmHG Vent. Rate : 082 BPM Atrial Rate : 082 BPM P-R Int : 166 ms QRS Dur : 090 ms QT Int : 408 ms P-R-T Axes : 048 -30 057 degrees QTc Int : 476 ms Normal sinus rhythm Possible Left atrial enlargement Left axis deviation Abnormal ECG When compared with ECG of 02-MAY-2021 05:48, No significant change was found Confirmed by Caden Escobar ([id number]) on 05/23/2021 11:25:08 AM Referred By: REFERRED SELF Confirmed By:Kevan Escobar
[2021-05-23] MEDS ORDERED: SODIUM CHLORIDE 0.9% 250 ML IV PRN (11:33)
[2021-05-23] MEDS ORDERED: HYDROmorphone INJ 0.5 MG/0.5 ML SYR IV STA (11:37)
[2021-05-23] MEDS: INSULIN ASPART PER UNIT SC SCH ×5 (11:39→20:59)
--- NOTE | 2021-05-23 11:39 | Gastrointestinal Consultation ---
Date of Consultation May 23, 2021 Assessment & Plan (1) RB (rectal bleeding): Bleeding is most likely secondary to 30mm rectal polyp that was seen on colonoscopy in Jan. Discussed prep. after lengthily discussion. Pt is agreeable to taking Dulcolax and using an enema prior. He refuses digital rectal exam today. Refuses any liquid colonoscopy prep. States, he is on kidney dialysis x 3 yrs and people don't live long with that issue, so not worried about colon cancer. That said, he does agreed to undergoing colonoscopy for removal of the large polyp - as IP or OP - to be determined. Supervising Physician Co-Signing Physician Notes Attg add (late entry): I interviewed and examined pt, reviewed chart and labs. Pt with rectal bleeding, recently cscopy shows large rectal polyp. Suspect bleeding originating from polyp, ddx includes ischemic colitis. Will plan for colonoscopy tomorrow. Pt has reservations about the prep - I had a 30 mins conversation about this with him, and he agrees to attempt this. History of Present Illness Reason for Consultation: Rectal bleeding, hx of rectal polyp Requesting Physician: Genaro Hennessy PA-C History of Present Illness Mr. Justice is a 41 yr old male pt of Dr. Lovelace with a hx of ESRD on HD, DM II, non ischemic cardiomyopathy, pulmonary sarcoidosis, HTN, on chronic O2 at home who presented to the ED today for maroon stools. He has chronic anemia and his Hb is currently stable at 9. Non contrast CTAP here today was unremarkable. He underwent a colonoscopy for rectal bleeding in Jan. At that time,a 30mm rectal polyp was seen (not removed) and he was recommended to undergo co lonoscopy for EMR in 1-2 months. A review of OP records suggests that the procedure was arranged with Dr. Chavarria, there there were some phone calls regarding issues with the prep, refusal of recommended enema(pt denies refusal of enema, states willing to do enema and refuses po liquid prep as it caused nausea). Repeat colonoscopy for EMR did not take place. He tells us that he was awakened around 6AM with cramping and mild abd discomfort - then passed a large dark red liquid BM, followed by about 3 more small BMs, also red, most recent rectal bleeding prior to arrival. No nausea/vomiting. On arrival, Hb is at baseline 9.0. CTAP unremarkable. Pt is awake, oriented, hemodynamically stable and abd is non tender. Allergies Allergy/AdvReac Type Severity Reaction Status Date / Time No Known Allergies Allergy Unknown Verified 05/23/21 09:24 Home Medications Medication Instructions Recorded Confirmed Type amlodipine 10 mg tablet 10 mg PO HS 06/11/19 05/23/21 History calcium acetate(phosphat bind) 667 1,334 mg PO AC 06/11/19 05/23/21 History mg tablet lisinopril 40 mg tablet 40 mg PO HS 06/11/19 05/23/21 History hydralazine 25 mg tablet 25 mg PO HS 02/03/20 05/23/21 History vitamin B complex-vitamin C-folic 1 tab PO HS 02/03/20 05/23/21 History acid 0.8 mg tablet (Myrna-Bello) albuterol sulfate 90 mcg/actuation 2 puff INHALATION Q6 PRN 10/13/20 05/23/21 History aerosol inhaler atorvastatin 40 mg tablet 40 mg PO HS 10/13/20 05/23/21 History insulin aspart U-100 100 unit/mL 16 unit SUBCUT AC 10/13/20 05/23/21 History (3 mL) subcutaneous pen (Novolog Flexpen U-100 Insulin aspart) lorazepam 1 mg tablet 1 mg PO UD 10/13/20 05/23/21 History torsemide 100 mg tablet 100 mg PO HS 10/13/20 05/23/21 History insulin glargine 100 unit/mL (3 56 unit SUBCUT QAM 01/29/21 05/23/21 History mL) subcutaneous pen (Basaglar KwikPen U-100 Insulin) metoprolol succinate 50 mg 50 mg PO BID 05/02/21 05/23/21 History tablet,extended release 24 hr lidocaine-prilocaine 2.5 %-2.5 % 1 applic TOPICAL 3XWK 05/23/21 05/23/21 History topical cream trazodone 100 mg tablet 100 mg PO HS 05/23/21 05/23/21 History Patient History Medical History A-V fistula right Anemia Chronic respiratory failure with hypoxia Chronic systolic CHF (congestive heart failure) Diabetes IDDM (Type 1 per records) Dyslipidemia End stage renal disease diaylsis - M,W,F ([facility], [place]) History of colon polyps Hypertension NICM (nonischemic cardiomyopathy) Non compliance w medication regimen Obesity On home O2 on 2-3L at rest, up to 5L w/ exertion Poor historian Sarcoidosis per records Seizure disorder remote hx (2007) in setting of hypoglycemia (?ETOH related per records), no i ssues since Surgical History History of cardiac cath History of colonoscopy 01/25/21 [facility] History of esophagogastroduodenoscopy (EGD) 01/22/21 [facility] History of lung surgery removal of benign nodule History of surgery removal of permacath History of vascular access device permacath insertion Hx of biopsy kidney bx PONV (postoperative nausea and vomiting) Status post creation of arteriovenous fistula right: 07/15/17: MAC sedation at [facility] Family History Father Hypertension Social History Smoking Status: Former smoker Tobacco Type: Cigarettes Years Smoked: 2; Second Hand Exposure: No; Hx Alcohol Use: No Hx Substance Use: No Preferred Language: Iranian Communication Ability: Effective Audio Visual Equipment Rental Clerk Required: No Beliefs That Will Affect Care: None Current Living Situation: Alone Current Living Situation Comment: Roommate Other Information That Helps Us Care for You: No Feels Safe at Home: Yes Safety Concerns: Feels Safe At This Time Assistive Devices: Oxygen - Continuous Review of Systems Review of Systems: ROS: Gen: Denies weakness, fevers, weight loss Eyes: No eye redness, or pain, no recent vision changes Resp: No SOB, no cough Cardio: No palpitations/irregular beats, no chest pain GI: Per HPI, otherwise (-), no nausea/vomiting Skin: No jaundice, itching or new rashes A total of 12 systems were reviewed, all others (-). Physical Exam Constitutional: well developed and cooperative Eyes: PERRL, conjunctivae normal, anicteric sclerae ENMT: external ear and nose normal, oropharynx normal Neck: trachea midline, no thyromegaly Respiratory: normal respiratory effort, lungs clear to auscultation Cardiovascular: Rate/Rhythm: regular rate and regular rhythm Extremities: + edema (1+ bilat lower leg edema) Gastrointestinal (Abdomen): normal bowel sounds, soft, nontender, no hepatosplenomegaly Skin: no rashes, warm and dry normal turgor Neurologic: PERRL, EOMI, accommodation nl, no face palsy, no dysarthria awake; not confused Psychiatric: A+Ox3, euthymic affect Orientation: alert, oriented x 3 and cooperative Results & Data ([facility]) Vital Signs (Past 12 Hours) Vital Signs Temp Pulse Pulse Resp BP BP Pulse Ox 05/23/21 11:16 81 22 182/99 H 96 05/23/21 10:00 83 15 163/85 H 92 05/23/21 09:30 85 16 197/108 H 05/23/21 09:07 85 20 178/111 H 05/23/21 09:00 83 19 05/23/21 08:30 79 16 95 05/23/21 08:19 61 22 138/68 91 05/23/21 08:18 82 16 95 05/23/21 08:13 61 22 91 05/23/21 07:41 36.7 C 83 20 165/96 H 94 Laboratory Results WBC 8, Hb 9, Hct 28, Plts 254, PT 9.8, INR 1.0, Na 132, K 5.4, Cl 100, CO2 23, BUN 61, Cr 9.07. Diagnostic Findings CTAP non contrast 05/23/21: 1. No bowel obstruction. No bowel wall thickening identified on unenhanced exam. 2. Interlobular septal thickening within the lower lungs consistent with interstitial pulmonary edema. Alveolar opacities likely reflect alveolar edema. An infectious process is considered less likely. 3. Renal atrophy. 4. Mild splenomegaly.
[2021-05-23] MEDS ORDERED: GLUCAGON FOR INJ 1 MG VIAL SQ PRN (12:04)
[2021-05-23] MEDS ORDERED: ONDANSETRON INJ 2 MG/ML 2 ML VIAL IV PRN (12:04)
[2021-05-23] MEDS ORDERED: ALBUTEROL HFA 8 GM INHALER INH PRN (12:04)
--- NOTE | 2021-05-23 12:38 | Consultation Report ---
NEPHROLOGY CONSULTATION NOTE DATE OF SERVICE: 05/23/2021 REASON FOR CONSULT: Dialysis patient admitted with GI bleed. HISTORY OF PRESENT ILLNESS: The patient is a 41-year-old very noncompliant dialysis patient on a Fri, Friday, Friday schedule at [facility] in [place]. He has type 1 diabetes, nonischemi c cardiomyopathy, chronic systolic heart failure, sarcoidosis, chronic oxygen need, who presented to the hospital because of dark bloody stool, which began around 2:00 a.m. earlier today. He presented to the dialysis unit, but because of the bleeding, he was referred to the Emergency Department. He h as been very noncompliant with dialysis and frequently misses as well as shortens dialysis a lot. He is always fluid overloaded. He is on chronic oxygen, and at this time, he is on same level of oxyge n as at baseline. The patient is already threatening to leave against medical advice. His hemoglobi n was noted to be 9, which is similar to his recent hemoglobin. ALLERGY LIST: None. MEDICATIONS: Home medication list was reviewed in detail and as per the reconciliation list. PAST MEDICAL AND SURGICAL HISTORY: Includes type 1 diabetes with ESRD, on hemodialysis Friday, , Friday, hypertension, nonischemic cardiomyopathy, severe noncompliance, obesity, chronic oxygen at home 3 liters at rest and 5 liters with exertion, history of sarcoidosis, history of seizure diso rder, AV fistula in the right. FAMILY HISTORY: Negative for renal disease or dialysis. SOCIAL HISTORY: Ongoing smoking. No alcohol. He lives alone with a roommate. He uses oxygen danilo nuous. PHYSICAL EXAMINATION: GENERAL: A young white male who is on oxygen at baseline, does not appear to be in overt respiratory distress. He is awake, alert, oriented x3. VITAL SIGNS: Blood pressure is high at 182/99, pulse rate 81, temperature 36.7, 96% on 3 liters nasa l cannula. HEENT: Mucous membranes are moist. NECK: Supple. CHEST: Bilaterally clear to auscultation. CARDIOVASCULAR: S1 and S2, regular. ABDOMEN: Soft, nontender. EXTREMITIES: Show trace to 1+ edema. LABORATORY TEST: Blood work shows sodium 132, potassium 5.4, BUN 61, creatinine 9.07, glucose 339. Hemoglobin is 9.0, which is slightly higher than before. CT abdomen and pelvis was done and there wa s no significant finding. ASSESSMENT AND PLAN: A 41-year-old male with type 1 diabetes and end-stage renal disease, on hemodia lysis Friday, Friday, Friday as well as multiple other chronic medical problems including chronic respiratory failure and chronic heart failure, now presenting with gastrointestinal bleed. 1. End-stage renal disease: His dialysis day is today and did not receive. If he gets admitted, we will do him tomorrow. There are significant issues with scheduling dialysis given critical nursing s hortage. His potassium is slightly high, but that is in the setting of high glucose and should come down with insulin. He is on 3 liters of oxygen, which is his baseline. He always has evidence of si gnificant fluid overload, but then does not allow adequate fluid removal as he shortens and misses tr eatment often. He is already threatening to leave against medical advice, which he very might will d o. Given his extreme noncompliance, it is impossible to manage him in an ideal way. 2. Gastrointestinal bleed: We will defer to primary team and gastrointestinal. Job ID: [id number]
[2021-05-23] MEDS ORDERED: LORazepam 1 MG TAB PO SCH (12:45)
[2021-05-23] MEDS ORDERED: METOCLOPRAMIDE HCL 10 MG TABLET PO PRN (14:06)
[2021-05-23] MEDS ORDERED: METOCLOPRAMIDE HCL 5 MG TABLET PO STA (14:22)
[2021-05-23] MEDS ORDERED: bisacodyL 5 MG TABEC PO ONE (14:30)
[2021-05-23] MEDS: HYDROmorphone INJ 0.5 MG/0.5 ML SYR IV PRN ×2 (14:56→22:46)
[2021-05-23] MEDS ORDERED: LAVAGE SOLUTION 4000ML PO SCH (15:00)
[2021-05-23] MEDS ORDERED: diphenhydrAMINE Capsule 25 MG CAP PO PRN (15:39)
[2021-05-23] MEDS: METOCLOPRAMIDE HCL INJ 5 MG/ML 2 ML VIAL IV SCH ×2 (16:02→22:48)
[2021-05-23 16:13] LABS: Hematocrit (blood only) 27.8 % (42-52); Hemoglobin 8.9 g/dL (14.0-18.0)
[2021-05-23] MEDS: CALCIUM ACETATE 667 MG CAP/TAB PO SCH (17:09)
[2021-05-23] MEDS: ACETAMINOPHEN 325 MG TAB PO PRN (19:56)
[2021-05-23] MEDS: METOPROLOL SUCC 50MG EXT REL TAB PO SCH (20:46)
[2021-05-23] MEDS ORDERED: traZODone HCL 100 MG TAB PO SCH (21:00)
[2021-05-23] MEDS ORDERED: hydrALAZINE HCL 25 MG TAB PO SCH (21:00)
[2021-05-23] MEDS ORDERED: lisinopril 40 MG TAB PO SCH (21:00)
[2021-05-23] MEDS ORDERED: TORSEMIDE 100 MG TAB PO SCH (21:00)
[2021-05-23] MEDS ORDERED: amLODIPine BESYLATE 5 MG TAB PO SCH (21:00)
[2021-05-23] MEDS ORDERED: ASPIRIN 81 MG ECTAB PO SCH (21:00)
[2021-05-23] MEDS ORDERED: ATORVASTATIN 40 MG TAB PO SCH (21:00)
[2021-05-23] MEDS ORDERED: NEPHROCAPS PO SCH (21:00)
[2021-05-23] MEDS: FAMOTIDINE 20 MG in SYRINGE 3 ML IV SCH (22:48)
[2021-05-24] MEDS ORDERED: DEXTROSE 50% 50 ML SYRINGE IV STA (00:36)
[2021-05-24] MEDS: ACETAMINOPHEN 325 MG TAB PO PRN ×2 (06:14→09:38)
[2021-05-24 06:43] LABS: Hematocrit (blood only) 26.5 % (42-52); Hemoglobin 7.9 g/dL (14.0-18.0); Mean Corpuscular Hemoglobin 26.2 pg (25-34); Mean Corpuscular Hgb Conc 29.8 g/dL (32-36); Mean Corpuscular Volume 87.7 fL (80-100); Mean Platelet Volume 9.1 fL (7.4-10.4); Platelet Count 274 K/uL (130-400); RDW Coefficient of Variation 16.9 % (11.5-14.5); Red Blood Count 3.02 M/uL (4.7-6.1); White Blood Count 8.92 K/uL (4.8-10.8)
[2021-05-24] MEDS ORDERED: EPOETIN ALFA 10,000 UNITS/ML VIAL IV SCH (07:00)
[2021-05-24] MEDS ORDERED: SODIUM CHLORIDE 0.9% 1000ML 1,000 ML IV PRN (07:00)
[2021-05-24 07:25] LABS: Albumin Globulin Ratio 1.1 (0.9-2); Albumin Level 3.4 gm/dl (3.4-5.0); BUN Creatinine Ratio 7.3 (10-20); Bilirubin,Total 0.6 mg/dl (0.2-1); Calcium 8.9 mg/dl (8.5-10.1); Creatinine Clr Calc Pharmacy 11.2 ml/min; Est GFR (African American) 6.4 ml/min; Est GFR (Non-African American) 5.5 ml/min; Globulin 3.1 gm/dl (2.5-4.0); Potassium 5.5 mmol/L (3.5-5.1); Total Protein 6.5 gm/dl (6.4-8.2)
--- NOTE | 2021-05-24 08:25 | Anesthesiology Consultation ---
Date of Service May 24, 2021 Assessment & Plan (1) Encounter for pre-operative examination: Chart Review Chart Review: Patient NOT seen in Pre Admission Testing Consults Requested none Additional Notes Pt is overdue for dialysis and will need to be dialyzed prior to proceeding with colonoscopy with anesthesia. History Surgery Operation Date: 05/24/21 14:00 Proposed Procedures p Colonoscopy - Lydia Umaña MD Height/Weight Height: 5 ft 10 in Weight: 99.6 kg Allergies Allergy/AdvReac Type Severity Reaction Status Date / Time No Known Allergies Allergy Unknown Verified 05/23/21 09:24 Medications Home Medications Medication Instructions Recorded Confirmed Last Taken amlodipine 10 mg tablet 10 mg PO HS 06/11/19 05/23/21 05/22/21 calcium acetate(phosphat bind) 667 1,334 mg PO AC 06/11/19 05/23/21 05/22/21 mg tablet lisinopril 40 mg tablet 40 mg PO HS 06/11/19 05/23/21 05/22/21 hydralazine 25 mg tablet 25 mg PO HS 02/03/20 05/23/21 05/22/21 vitamin B complex-vitamin C-folic 1 tab PO HS 02/03/20 05/23/21 05/22/21 acid 0.8 mg tablet (Myrna-Bello) albuterol sulfate 90 mcg/actuation 2 puff INHALATION Q6 PRN 10/13/20 05/23/21 Unknown aerosol inhaler atorvastatin 40 mg tablet 40 mg PO HS 10/13/20 05/23/21 05/22/21 insulin aspart U-100 100 unit/mL 16 unit SUBCUT AC 10/13/20 05/23/21 05/22/21 (3 mL) subcutaneous pen (Novolog Flexpen U-100 Insulin aspart) lorazepam 1 mg tablet 1 mg PO UD 10/13/20 05/23/21 05/22/21 torsemide 100 mg tablet 100 mg PO HS 10/13/20 05/23/21 05/22/21 aspirin 81 mg chewable tablet 81 mg PO HS 01/29/21 05/23/21 05/22/21 insulin glargine 100 unit/mL (3 56 unit SUBCUT QAM 01/29/21 05/23/21 05/22/21 mL) subcutaneous pen (Basaglar KwikPen U-100 Insulin) metoprolol succinate 50 mg 50 mg PO BID 05/02/21 05/23/21 05/22/21 tablet,extended release 24 hr lidocaine-prilocaine 2.5 %-2.5 % 1 applic TOPICAL 3XWK 05/23/21 05/23/21 05/22/21 topical cream trazodone 100 mg tablet 100 mg PO HS 05/23/21 05/23/21 05/22/21 Active Medications Generic Name Dose Route Start Last Admin Trade Name Freq PRN Reason Stop Dose Admin Acetaminophen 650 mg 05/23/21 12:04 05/24/21 06:14 Acetaminophen 325 Mg Tab PO 06/22/21 12:03 650 mg Q4H PRN Administration Moderate Pain Amlodipine Besylate 10 mg 05/23/21 21:00 05/23/21 22:47 Amlodipine Besylate 5 Mg Tab PO 06/22/21 20:59 10 mg HS CHENG Administration Aspirin 81 mg 05/23/21 21:00 05/23/21 21:15 Aspirin 81 Mg Ectab PO 06/22/21 20:59 Not Given HS CHENG Atorvastatin Calcium 40 mg 05/23/21 21:00 05/23/21 20:47 Atorvastatin 40 Mg Tab PO 06/22/21 20:59 40 mg HS CHENG Administration Calcium Acetate 1,334 mg 05/23/21 16:30 05/23/21 17:09 Calcium Acetate 667 Mg Cap/Tab PO 06/22/21 16:29 Not Given AC CHENG Diphenhydramine HCl 25 mg 05/23/21 15:39 05/23/21 16:02 Diphenhydramine Capsule 25 Mg Cap PO 06/22/21 15:44 25 mg Q6H PRN Administration Itching Hydralazine HCl 25 mg 05/23/21 21:00 05/23/21 20:48 Hydralazine Hcl 25 Mg Tab PO 06/22/21 20:59 25 mg HS CHENG Administration Hydromorphone HCl 0.25 mg 05/23/21 14:50 05/23/21 22:46 Hydromorphone Inj 0.5 Mg/0.5 Ml Syr IV 06/06/21 14:49 0.25 mg Q6H PRN Administration Pain Famotidine 20 mg/ Syringe 5 mls @ 2.5 mls/min 05/23/21 21:00 05/23/21 22:48 IV 06/22/21 20:59 2.5 mls/min BID CHENG Administration Insulin Aspart 0 units 05/23/21 12:04 05/23/21 20:59 Insulin Aspart Per Unit SC 06/22/21 12:03 Not Given ACHS CHENG Lisinopril 40 mg 05/23/21 21:00 05/23/21 20:47 Lisinopril 40 Mg Tab PO 06/22/21 20:59 40 mg HS CHENG Administration Lorazepam 1 mg 05/23/21 12:45 05/23/21 17:26 Lorazepam 1 Mg Tab PO 06/22/21 12:44 Not Given MoWeFr CHENG Metoprolol Succinate 50 mg 05/23/21 21:00 05/23/21 20:46 Metoprolol Succ 50mg Ext Rel Tab PO 06/22/21 20:59 50 mg BID CHENG Administration Miscellaneous 15 - 30 gm 05/23/21 12:04 05/24/21 00:01 Carbohydrates For Hypoglycemia PO 06/22/21 12:03 15 gm UD PRN Administration Hypoglycemia Protocol Torsemide 100 mg 05/23/21 21:00 05/23/21 20:48 Torsemide 100 Mg Tab PO 06/22/21 20:59 100 mg HS CHENG Administration Trazodone HCl 100 mg 05/23/21 21:00 05/23/21 20:48 Trazodone Hcl 100 Mg Tab PO 06/22/21 20:59 100 mg HS CHENG Administration Vitamin B Complex/Folic Acid 1 cap 05/23/21 21:00 05/23/21 20:47 Nephrocaps PO 06/22/21 20:59 1 cap HS CHENG Administration Past Medical History Medical History A-V fistula right Anemia Chronic respiratory failure with hypoxia Chronic systolic CHF (congestive heart failure) Diabetes IDDM (Type 1 per records) Dyslipidemia End stage renal disease diaylsis - M,W,F ([facility], [place]) History of colon polyps Hypertension NICM (nonischemic cardiomyopathy) Non compliance w medication regimen Obesity On home O2 on 2-3L at rest, up to 5L w/ exertion Poor historian Sarcoidosis per records Seizure disorder remote hx (2007) in setting of hypoglycemia (?ETOH related per records), no issues since Past Family History Family History Father Hypertension Past Surgical History Surgical History History of cardiac cath History of colonoscopy 01/25/21 [facility] History of esophagogastroduodenoscopy (EGD) 01/22/21 [facility] History of lung surgery removal of benign nodule History of surgery removal of permacath History of vascular access device permacath insertion Hx of biopsy kidney bx PONV (postoperative nausea and vomiting) Status post creation of arteriovenous fistula right: 07/15/17: MAC sedation at [facility] Social History Smoking Status: Former smoker tobacco type: smokeless tobacco Hx Alcohol Use: No Hx Substance Use: No substance use type: does not use Physical Exam Vital Signs Last Vital Signs Temp 36.5 C 05/24/21 07:00 Pulse 79 05/24/21 07:00 Resp 16 05/24/21 07:00 BP 146/76 H 05/24/21 07:00 Pulse Ox 91 05/24/21 07:00 Testing Laboratory Results 05/24/21 06:05 05/24/21 06:05 PT 9.8 Seconds (9.0-12.0) 05/23/21 08:25 INR 1.0 (0.9-1.1) 05/23/21 08:25 APTT 25.8 Seconds (21.0-31.0) 05/23/21 08:25 Blood Type O Positive 05/23/21 08:25 Antibody Screen NEGATIVE 05/23/21 08:25 05/24/21 05/24/21 05/24/21 07:16 05:35 00:40 POC Glucose 134 H 131 H 162 H 05/24/21 05/24/21 05/23/21 00:21 00:17 23:58 POC Glucose 66 L* 65 L* 64 L* 05/23/21 23:57 POC Glucose 67 L* Other Testing Electrocardiogram - Date 05/23/21 Normal sinus rhythm Possible Left atrial enlargement Left axis deviation Abnormal ECG When compared with ECG of 02-MAY-2021 05:48, No significant change was found - Date:05/02/21 Normal sinus rhythm (89) Possible Left atrial enlargement Borderline ECG When compared with ECG of 19-APR-2021 05:13, No significant change was found Chest X-Ray Date:05/02/21 IMPRESSION: Intermixed airspace and interstitial opacities have progressed from prior suggestive of multifocal pneumonia. Pulmonary edema could appear similarly. Echocardiogram Date:08/22/20 EF:45-49% Large sized apical, inferior, posterior, and lateral wall motion abnormality with hypokinesis of the segments. No significant valvular disease. Cardiac Catheterization Date:08/22/20 Coronary arteries have mild non-obstructive disease with minor luminal irregularities.
[2021-05-24] MEDS: CALCIUM ACETATE 667 MG CAP/TAB PO SCH ×2 (08:40→12:38)
[2021-05-24] MEDS: INSULIN ASPART PER UNIT SC SCH ×2 (08:40→12:38)
[2021-05-24] MEDS ORDERED: PHARMACY GLYCEMIC MGMT CONSULT PRN (08:49)
[2021-05-24] MEDS ORDERED: INSULIN GLARGINE SOLOSTAR 100 UNITS/ML 3 ML PEN SQ SCH (09:00)
[2021-05-24] MEDS ORDERED: LORazepam 2 MG/4 ML VIAL ONE (09:18)
[2021-05-24] MEDS ORDERED: LORazepam 0.5 MG/1 ML VIAL IV ONE (09:30)
--- NOTE | 2021-05-24 11:00 | Nephrology Progress Note ---
Date of Service May 24, 2021 Assessment & Plan (1) ESRD (end stage renal disease) on dialysis: Plan: A 41-year-old male with type 1 diabetes and end-stage renal disease, on hemodialysis Friday, Friday, Friday as well as multiple other chronic medical problems including chronic respiratory failure and chronic heart failure, now presenting with gastrointestinal bleed. End-stage renal disease: MWF Rita, missed HD yesterday duet ti staffing issues. . He always has evidence of significant fluid overload, but then does not allow adequate fluid removal as he shortens and misses treatment often. He is already threatening to leave against medical advice, which he very might will do. Given his extreme noncompliance, it is impossible to manage him in an ideal way. Try for full TX time as prescribed today. HB- drop, Continue on outpatient dose of epo. BP is Generous , expect it to improve with fluid removal. IN the meantime please continue on all the Antihypertensives. Plan for COLONOSCOPY post HD (2) RB (rectal bleeding): Plan: Hemodynamically stable, going to Colonoscopy today. Admission and Anticipated Discharge Date Admission Date: May 23, 2021 Subjective Comfortable, no new issue. Pedal edema at baseline, no SOB. Review of Systems Review of Systems: Comfortable,no new issues pedal edema at baseline. Physical Exam Physical Exam: GENERAL: A young white male who is on oxygen at baseline, does not appear to be in overt respiratory distress. He is awake, alert, oriented x3. HEENT: Mucous membranes are moist. NECK: Supple. CHEST: Bilaterally clear to auscultation. CARDIOVASCULAR: S1 and S2, regular. ABDOMEN: Soft, nontender. EXTREMITIES: Show trace to 1+ edema Results & Data ([facility]) Vital Signs (Past 12 Hours) Vital Signs Temp Pulse Pulse Pulse Resp BP BP 05/24/21 09:40 78 162/79 H 05/24/21 09:20 73 158/91 H 05/24/21 09:02 76 162/89 H 05/24/21 08:57 36.8 C 80 05/24/21 07:00 36.5 C 79 16 146/76 H 05/24/21 04:00 05/24/21 03:46 36.3 C L 85 20 164/90 H 05/23/21 23:51 74 Pulse Ox 05/24/21 09:40 05/24/21 09:20 05/24/21 09:02 05/24/21 08:57 05/24/21 07:00 91 05/24/21 04:00 94 05/24/21 03:46 89 L 05/23/21 23:51 Laboratory Results 05/24/21 06:05 05/24/21 06:05
[2021-05-24] MEDS: METOPROLOL SUCC 50MG EXT REL TAB PO SCH (12:38)
[2021-05-24] MEDS: FAMOTIDINE 20 MG in SYRINGE 3 ML IV SCH (12:41)
--- NOTE | 2021-05-24 12:46 | Gastroenterology Progress Note ---
Date of Service May 24, 2021 Assessment & Plan (1) RB (rectal bleeding): Plan: Rectal bleeding likely from the 3cm rectal polyp that was seen on colonoscopy earlier this year. Pt didn't take much prep, refused enema, is willing to allow Dr. Umaña to do an unprepped flex sig. Admission and Anticipated Discharge Date Admission Date: May 23, 2021 Supervising Physician Co-Signing Physician Notes Attg add: I interviewed and examined pt, reviewed chart and labs. No further rectal bleeding. He drank only 2 cups of the prep, and refused the rest. He initially agreed to take an enema, but then refused when the nurses was actually going to give it. He initially agreed to sigmoidoscopy, but then refused. I spoke to him twice, during two separate conversations about this. I explained that he has a large polyp that may be malignant or that has a prohibitively high risk of malignant transformation in the near future. I also explained that he has the opportunity to treat an early cancer, or prevent himself from developing cancer, by allowing us to proceed with a scope to remove this tumor. He states explicitly that he understands the risk of cancer; he states clearly, repeatedly, and explicitly that he does not want to proceed with a sigmoidoscopy at this time. He then left AMA. I called him after leaving and spoke to him; he tells me that he is amenable to attempting to undergo the procedure as an outpatient, although he remains unwilling to drink a laxative prep or take an enema prior to the procedure. Subjective 41, male, hx diabetic ESRD on hemodialysis, type 1 diabetes, COPD on home oxygen, nonischemic cardiomyopathy. Admitted 05/23 for rectal bleeding. Known large rectal polyp. Pt reports most recent BMs liquid though took only about 2 cups of prep with dulcolax. On return to the floor after dialysis, refused enema, then after described in detail and addressing his concerns, he refused the enema. Review of Systems Review of Systems: ROS: Gen: Denies weakness, fevers, weight loss Eyes: No eye redness, or pain, no recent vision changes Resp: No SOB, no cough Cardio: No palpitations/irregular beats, no chest pain GI: As per HPI, otherwise (-). : Denies pain on urination Skin: No jaundice, itching or new rashes Physical Exam Constitutional: well developed and cooperative Eyes: PERRL, conjunctivae normal, anicteric sclerae Respiratory: normal respiratory effort, lungs clear to auscultation Cardiovascular: Rate/Rhythm: regular rate and regular rhythm Extremities: + edema (1+ bilat lower leg edema) Gastrointestinal (Abdomen): normal bowel sounds, soft, nontender, no hepatosplenomegaly Inspection/Auscultation: abdomen not distended Skin: no rashes, warm and dry normal turgor and + pallor Neurologic: PERRL, EOMI, accommodation nl, no face palsy, no dysarthria awake; not confused Psychiatric: A+Ox3, euthymic affect Orientation: alert, oriented x 3 and cooperative Results & Data ([facility]) Vital Signs (Past 12 Hours) Vital Signs Temp Pulse Pulse Pulse Resp BP BP 05/24/21 11:32 78 05/24/21 11:00 83 148/70 H 05/24/21 10:40 81 130/80 05/24/21 10:20 79 144/76 H 05/24/21 10:00 79 142/73 H 05/24/21 09:40 78 162/79 H 05/24/21 09:20 73 158/91 H 05/24/21 09:02 76 162/89 H 05/24/21 08:57 36.8 C 80 05/24/21 07:00 36.5 C 79 16 146/76 H 05/24/21 04:00 05/24/21 03:46 36.3 C L 85 20 164/90 H Pulse Ox 05/24/21 11:32 05/24/21 11:00 05/24/21 10:40 05/24/21 10:20 05/24/21 10:00 05/24/21 09:40 05/24/21 09:20 05/24/21 09:02 05/24/21 08:57 05/24/21 07:00 91 05/24/21 04:00 94 05/24/21 03:46 89 L Laboratory Results WBC 8.9, Hb 7.9, Hct 26.5, Plts 274, Na 132, K 5.5, Cl 101, CO2 19, BUN 76, Cr 10, glucose 134. Diagnostic Findings CTAP 05/23/21: 1. No bowel obstruction. No bowel wall thickening identified on unenhanced exam. 2. Interlobular septal thickening within the lower lungs consistent with interstitial pulmonary edema. Alveolar opacities likely reflect alveolar edema. An infectious process is considered less likely. 3. Renal atrophy. 4. Mild splenomegaly.
--- NOTE | 2021-05-24 12:52 | Pharmacy Report ---
Pharmacy Glycemic Short Note 2 - Date of Service May 24, 2021 - Glycemic Short BSG Results (Last 24 hours): 05/23/21 05/23/21 05/23/21 12:54 16:06 19:48 Glucose POC Glucose 356 H* 211 H 180 H 05/23/21 05/23/21 05/24/21 23:57 23:58 00:17 Glucose POC Glucose 67 L* 64 L* 65 L* 05/24/21 05/24/21 05/24/21 00:21 00:40 05:35 Glucose POC Glucose 66 L* 162 H 131 H 05/24/21 05/24/21 05/24/21 06:05 07:16 12:30 Glucose 127 H POC Glucose 134 H 93 OUTPATIENT ANTIDIABETIC REGIMEN: * Basaglar 56 units SQ qAM + novolog 16 units TID with meals * A1c 6.3% ASSESSMENT: * Sean is a 41 yo diabetic who presented with rectal bleeding. He has h/o ESRD on HD MWF. * He was made NPO and scheduled for a colonoscopy later today * He had an episode of hypoglycemia yesterday evening (BSG 67 mg/dL). I suspect this is due to administration of large dose of novolog and NPO status. * Basal insulin reduced by 50% by hospitalist. Will continue ordered dose for now. Basal needs have varied significantly during previous admissions. * Will change to novolog parameters used during recent hospital stay. PLAN FOR INPATIENT GLYCEMIC CONTROL: * Basal insulin * Lantus 28 units SQ daily * Bolus insulin * NovoLog per scale ACHS or Q6hrs while NPO * Goal Range: Low 120 mg/dL - High 150 mg/dL * Correction Factor: 25 mg/dL/unit * Nutritional / Prandial insulin per carb ratio of 1 unit per 6 grams CHO consumed PLAN FOR DISCHARGE: * A1c of 6.3% is at goal, however, this result is likely somewhat unreliable in ESRD patients d/t interactions between the A1c analyzing technique and high levels of urea in ESRD, reduced RBC life span, iron deficiency anemia, and EPO administration. * Recommend close monitoring and adjustment of insulin regimen based on SMBG
--- NOTE | 2021-05-24 13:13 | Hospitalist Progress Note ---
Date of Service May 24, 2021 Assessment & Plan (1) BRBPR (bright red blood per rectum): Plan: Rectal bleeding Likely secondary to rectal polyp seen on prior colonoscopy --CT ABD: No bowel obstruction. No bowel wall thickening identified on unenhanced exam. Patient refused colon prep and also refused unprepped flexible sigmoidoscopy Appreciate gastroenterology input He prefers to follow-up as outpatient Patient refused colonoscopy and further evaluation by gastroenterology Despite explaining the risks and complications without being treated patient plans to sign out AMA. He understand his condition. Hemoglobin 7.9 today (2) ESRD (end stage renal disease) on dialysis: Plan: - Nephro consulted for HD, typically gets MWF sessions Appreciate nephrology help (3) DM type 1 (diabetes mellitus, type 1): Plan: -Hgb A1c 6.4 02/2021 -Continue insulin therapy while hospitalized Monitor blood glucose levels (4) Chronic systolic CHF (congestive heart failure): Plan: -Volume status managed through dialysis - Cont asa, atorvastatin, amlodipine, hydralazine, lisinopril,metoprolol, and torsemide (5) NICM (nonischemic cardiomyopathy): Plan: - Continue medications as above (6) Hypertension: Plan: - Continue home meds (7) Dyslipidemia: Plan: - Cont statin therapy (8) Chronic respiratory failure with hypoxia: Plan: - He reports he uses 3l/min or more at home, 6L with exertion. - Needs to follow up with Pulm outpatient. He was scheduled for PFTs in April but cancelled that appt. (9) Sarcoidosis: Plan: -CT chest shows increase in size of mediastinal and bilateral hilar lymph nodes since prior CT -will need outpatient follow-up with pulmonology -PFTs were scheduled for earlier this month but pt cancelled scheduled outpt appt on May 17 (10) Anemia of chronic disease: Plan: -Anemia due to CKD and chronic comorbidities. Currently at baseline, no indication for transfusion at this time. DVT ppx: - teds, no chemical ppx in the setting of GIB CODE STATUS: Full Code Disposition : Left AMA Admission and Anticipated Discharge Date Admission Date: May 23, 2021 Subjective Patient is seen and examined at bedside Had hemodialysis earlier today Denies any active bleeding today Also denies any nausea, vomiting, chest pain, abdominal pain, dyspnea Patient refused colonoscopy and further evaluation by gastroenterology Despite explaining the risks and complications without being treated patient plans to sign out AMA. Review of Systems Review of Systems: All systems reviewed & are unremarkable except as noted in Subjective Physical Exam Physical Exam: Physical Exam: Vitals signs as noted above General Appearance:Obese, no apparent distress Head: normocephalic, Atraumatic Eyes: normal inspection, EOMI Neck: supple, Trachea midline Respiratory/Chest: Normal breath sounds, CTA Cardiovascular: S1, S2, No murmur Abdomen/GI:Soft, Non tender, Bowel sounds present Extremities/Musculoskeletal:normal inspection, no edema Neurologic/Psych:AAOX3, grossly no focal neurological deficits Skin: normal color, warm Results & Data Results & Data ([facility]) Vital Signs (Past 12 Hours) Vital Signs Temp Pulse Pulse Pulse Resp BP BP 05/24/21 12:32 36.7 C 82 17 185/108 H 05/24/21 11:32 78 05/24/21 11:00 83 148/70 H 05/24/21 10:40 81 130/80 05/24/21 10:20 79 144/76 H 05/24/21 10:00 79 142/73 H 05/24/21 09:40 78 162/79 H 05/24/21 09:20 73 158/91 H 05/24/21 09:02 76 162/89 H 05/24/21 08:57 36.8 C 80 05/24/21 07:00 36.5 C 79 16 146/76 H 05/24/21 04:00 05/24/21 03:46 36.3 C L 85 20 164/90 H Pulse Ox 05/24/21 12:32 96 05/24/21 11:32 05/24/21 11:00 05/24/21 10:40 05/24/21 10:20 05/24/21 10:00 05/24/21 09:40 05/24/21 09:20 05/24/21 09:02 05/24/21 08:57 05/24/21 07:00 91 05/24/21 04:00 94 05/24/21 03:46 89 L Laboratory Results Short CBC 05/24/21 Range/Units 06:05 WBC 8.92 (4.8-10.8) K/uL Hgb 7.9 L (14.0-18.0) g/dL Hct 26.5 L (42-52) % Plt Count 274 (130-400) K/uL BMP 05/24/21 06:05 Sodium 132 L Potassium 5.5 H Chloride 101 Carbon Dioxide 19 L BUN 76 H Creatinine 10.50 H* D Glucose 127 H Calcium 8.9 Liver Function 05/24/21 Range/Units 06:05 Total Bilirubin 0.6 (0.2-1) mg/dl AST 8 L (15-37) U/L ALT 27 (12-78) Alkaline Phosphatase 76 (45-117) U/L Albumin 3.4 (3.4-5.0) gm/dl
--- NOTE | 2021-05-24 19:14 | Discharge Summary ---
Date of Service May 24, 2021 Admission HPI Per Admitting Provider This is a 41 yo M with PMhx of DM type I, ESRD on hemodialysis MWF, nephrotic syndrome, nonischemic cardiomyopathy, Chronic systolic CHF, HTN, HLD, sarcoidosis, medical noncompliance. He was recently hospitalized earlier this month from 05/02-05/06 due to shortness of breath due to volume overload, likely from his noncompliance with HD sessions, as well as having mastoiditis of the left side and has been followed by Dr. Jackman. Mr. Justice presents with new onset of dark maroon stools which began around 2 AM. He went to his regular schedule dialysis([facility]) this morning however did not undergo any treatment based off of his complaints of having bleeding and was referred to the ER. Patient admits to generalized LLQ and lower abdominal pain, but denies nausea or vomiting. He did not have any abdominal complaints as of yesterday. He admits to some lightheadedness and dizziness this morning and generalized feeling unwell. He denies any shortness of breath while sitting at rest on 3 L, which is his baseline. He typically requires 6 L with exertion. His dry weight is 100 kg. Denies swelling in his legs, feets or fingers. He denies any chest pain, palpitations or flutter. Of note he reports congestion in his sinuses has been persistent since the last time he was here in the hospital, and that he has seen Dr. Jackman. He denies postnasal drip, drainage or any known COVID-19 exposure. Patient lives with roommates at home. He denies any alcohol, tobacco or illicit drug use. He has been poorly compliant with follow-ups per his outpatient chart review. In the ER his hemoglobin was found to be 9.0. He does have a history of being transfused many months ago. Several months ago he underwent an EGD by [facility] where it was negative for any acute findings. Recent colonoscopy shows a large recta polyp which was recommended to be removed. He does have an outpatient GI follow-up with Dr. Chavarria in June per epic review. Admission Exam Per Admitting Provider Physical Exam Physical Exam: General: awake, alert, no apparent distress, + Obese, + flat affect, + many tattoos Head: Normocephalic, atraumatic ENT: PERRL, EOMI, no pharyngeal exudate, mucous membranes moist, TM visualized bilaterally without erythema, edema, no fluid level, pearly green TM bilaterally. Chest: Poor inspiratory effort but clear to auscultation, on3L via NC, no adventitious breath sounds Cardiac: Regular rate and rhythm, no murmur, no JVD, normal peripheral pulses, good capillary refill Abdominal: NABS x 4 quadrants, soft, nondistended, minimally tender to palpation, no rebound or guarding Extremities: Normal inspection, no peripheral edema or erythema, calfs nontender to palpation Psych: Depressed mood and flat affect, irritated at times during discussion about NPO status. Neuro: AAO x 3, strength intact bilaterally and rated 5/5, no motor deficits, speech is clear, no peripheral sensory deficits Principal Diagnosis Rectal bleeding Discharge Data Allergies Allergy/AdvReac Type Severity Reaction Status Date / Time No Known Allergies Allergy Unknown Verified 05/23/21 09:24 Consultations 05/23/21 10:21 ED Decision to Admit Stat 05/23/21 10:45 Consult Gastroenterology Routine Consult Nephrology Routine Procedures Performed Operation Date: 05/24/21 14:00 <No data on this case meets the specified criteria> Operation Date: 05/24/21 16:00 <No data on this case meets the specified criteria> Ordered Studies 05/23/21 08:08 CT abd pelvis wo con Stat Hospital Course (1) BRBPR (bright red blood per rectum): Rectal bleeding Likely secondary to rectal polyp seen on prior colonoscopy --CT ABD: No bowel obstruction. No bowel wall thickening identified on unenhanced exam. Patient refused colon prep and also refused unprepped flexible sigmoidoscopy Appreciate gastroenterology input He prefers to follow-up as outpatient Patient refused colonoscopy and further evaluation by gastroenterology Despite explaining the risks and complications without being treated patient plans to sign out AMA. He understand his condition. Hemoglobin 7.9 today (2) ESRD (end stage renal disease) on dialysis: - Nephro consulted for HD, typically gets MWF sessions Appreciate nephrology help (3) DM type 1 (diabetes mellitus, type 1): -Hgb A1c 6.4 02/2021 -Continue insulin therapy while hospitalized Monitor blood glucose levels (4) Chronic systolic CHF (congestive heart failure): -Volume status managed through dialysis - Cont asa, atorvastatin, amlodipine, hydralazine, lisinopril,metoprolol, and torsemide (5) NICM (nonischemic cardiomyopathy): - Continue medications as above (6) Hypertension: - Continue home meds (7) Dyslipidemia: - Cont statin therapy (8) Chronic respiratory failure with hypoxia: - He reports he uses 3l/min or more at home, 6L with exertion. - Needs to follow up with Pulm outpatient. He was scheduled for PFTs in April but cancelled that appt. (9) Sarcoidosis: -CT chest shows increase in size of mediastinal and bilateral hilar lymph nodes since prior CT -will need outpatient follow-up with pulmonology -PFTs were scheduled for earlier this month but pt cancelled scheduled outpt appt on May 17 (10) Anemia of chronic disease: -Anemia due to CKD and chronic comorbidities. Currently at baseline, no indication for transfusion at this time. DVT ppx: - teds, no chemical ppx in the setting of GIB CODE STATUS: Full Code Disposition : Left AMA Total Time Total Time Spent Total Time Spent (In Minutes): 35 minutes Discharge Plan Discharge Items Patient Disposition: Against Medical Advice Reason For Visit: BRBPR, ANEMIA Activity: Per Instructions section Non-emergency contact: Primary Care Provider and Chain Builder Follow-up/Referrals: Jaime Lovelace MD [Primary Care Provider] - Addtl Milk Driver Provider Instructions: Follow-up with your primary care physician and sales support associate as advised Follow-up with your sales support associate for colonoscopy as outpatient Hold Aspirin and other NSAIDs as they increase your risk for bleeding Seek immediate medical attention if your symptoms reoccur or worsen Please take all medications as instructed on discharge list below. Please call if you have any questions or problems. You can reach a [facility] hospitalist on duty at [facility] 24 hours a day by calling [phone] Pending Studies at Discharge: No Stand-Alone Forms: My [facility] Social[employer], Smoking Cessation Medications and DC Order Prescriptions: Continued calcium acetate(phosphat bind) 667 mg Tablet 1,334 mg PO AC RF: 0 amlodipine 10 mg Tablet 10 mg PO HS RF: 0 lisinopril 40 mg Tablet 40 mg PO HS RF: 0 hydralazine 25 mg Tablet 25 mg PO HS RF: 0 Myrna-Bello 0.8 mg Tablet 1 tab PO HS RF: 0 albuterol sulfate 90 mcg/actuation HFA aerosol inhaler 2 puff INHALATION Q6 PRN (Reason: Shortness Of Breath Or Wheezing) RF: 0 atorvastatin 40 mg tablet 40 mg PO HS RF: 0 lorazepam 1 mg tablet 1 mg PO UD RF: 0 insulin aspart U-100 [Novolog Flexpen U-100 Insulin] 100 unit/mL (3 mL) insulin pen 16 unit SUBCUT AC RF: 0 torsemide 100 mg tablet 100 mg PO HS RF: 0 Basaglar KwikPen U-100 Insulin 100 unit/mL (3 mL) insulin pen 56 unit SUBCUT QAM RF: 0 metoprolol succinate 50 mg tablet extended release 24 hr 50 mg PO BID RF: 0 lidocaine-prilocaine 2.5-2.5 % cream 1 applic topical 3XWK RF: 0 trazodone 100 mg tablet 100 mg PO HS RF: 0 Discontinued aspirin 81 mg tablet,chewable 81 mg PO HS RF: 0 Discharge Orders: Left Against Medical Advice (Routine); Ordered 05/24/21 Ordered By: Rodney Doshi Admission Data Admit Date/Time: 05/23/21 10:45 Attending Provider: Rodney Doshi Admit Provider: Aren Kate Primary Care Provider: Jaime Loevlace Other Providers: Lydia Umaña Roshan ; Aren Kate
== END 2021-05-24 15:59 | disposition left against medical advice (07) | DRG 377 ==
LOC: ED 07:39 → EDINP 10:45 → SUATTDRO 10:45 → 2S 12:08

== ENCOUNTER 2022-07-08 06:12 | Inpatient (IN) ==
[2022-07-08] MEDS ORDERED: ACETAMINOPHEN 1,000 MG/100 ML VIAL IV STA (06:44)
[2022-07-08 07:21] LABS: Basophils # (auto) 0.11 K/uL (0-0.2); Eosinophils % (auto) 7.1 %; Hematocrit (blood only) 36.6 % (42.0-52.0); Hemoglobin 12.2 g/dl (14.0-18.0); Immature Granulocytes # (auto) 0.11 K/uL (0.01-0.20); Lymphocytes # (auto) 0.78 K/uL (1.2-3.4); Lymphocytes % (auto) 6.9 %; Mean Corpuscular Hgb Conc 33.3 g/dL (32.0-36.0); Mean Corpuscular Volume 90.1 fL (80.0-100.0); Mean Platelet Volume 11.4 fL (9.4-12.4); Monocytes # (auto) 0.47 K/uL (0.11-0.59); Monocytes % (auto) 4.1 %; Neutrophils # (auto) 9.06 K/uL (1.40-6.50); Neutrophils % (auto) 79.9 %; Platelet Count 182 K/uL (130-400); RDW Coefficient of Variation 16.6 % (11.5-14.5); RDW Standard Deviation 52.8 fL (36.4-46.3); Red Blood Count 4.06 M/uL (4.70-6.10); White Blood Count 11.33 K/ul (4.8-10.8)
--- NOTE | 2022-07-08 07:26 | Emergency Department Note ---
Impression & Plan Hypoxia, End-stage renal disease on hemodialysis, Hyperphosphatemia, Fall down stairs ED Provider Note NAME: JORDAN PHAN AGE: 42 SEX: M ARRIVES VIA: Ambulance INFORMANT: Patient ED PROVIDER(S): Jesús Sumner MD CHIEF COMPLAINT: Fall down stairs, syncope, hypoglycemia. PLAN: Disposition: Admit MEDICAL DECISION MAKING: The patient is a 42-year-old gentleman with a past medical history of end-stage renal disease on hemodialysis Friday, COPD on 2 L home oxygen, type 1 diabetes, medical noncompliance, CHF, sarcoidosis, hypertension, hyperlipidemia who presents emerged department via EMS after fall down stairs when he became lightheaded due to low blood sugar in the 40s per the patient's report to EMS. The patient had taken an oral glucose and upon arriving emerged department blood sugars in the 400s. Patient denies any fevers, chills, cough congestion,, GI or symptoms preceding his presentation today. The patient d id go to dialysis on Friday. He denies neck pain or back pain. He reports he fell down 20+ steps. He reports his roommate called the ambulance. On arrival the patient is in no acute distress, afebrile with blood pressure 200/100s and O2 saturation in the 70s on room air improving to the 90s on o xymask. The patient has a 3 cm occipital hematoma without bony crepitus. There is no laceration. He has no midline CTL spine tenderness to palpation or step-offs. He is moving all extremities equally without focal deficits. He does exhibit intermittent myoclonic jerks. Speech is fluent. CN II-XII grossly intact EKG without overt acute ischemia. CXR with pulmonary edema. WBC 11.3K nonspecific. H/H improved from prior values. Platelets within normal limits. VBG unremarkable. Glucose 206 with chemistry without metabolic acidosis. Creatinine 11.3 in setting of end-stage renal disease due for dialysis today with BUN of 47. Potassium 5.4. Magnesium 2.7 and phosphorus 11.6. High-sensitivity troponin 29.3, nonspecific in the setting of the patient's end-stage renal disease. Lipase is not elevated. COVID-19 RNA, JONELLE test was negative. CT of the head and C-spine negative for acute traumatic findings. CT of the chest and abdomen/pelvis with pulmonary findings most consistent with pulmonary edema given the clinical context. No acute intra-abdominal process is noted. Given the patient's hypoxia related to pulmonary edema related to need for hemodialysis in addition to myoclonic movements which are likely related to his hyperphosphatemia admission is appropriate this time for further management. I did review the patient's findings with him in detail and specifically discussed with him his hypoxia and symptomatic hyperphosphatemia that because of these discharge for outpatient hemodialysis is not appropriate. After our initial discussion the patient seemed to agree with this plan. Case was discussed with iGta Lama, [facility] PAC, with Laura [facility] hospitalist who will evaluate the patient for admission. Unfortunately, upon arrival of the inpatient team for their assessment the patient had changed his mind and was decided that he was going to leave. Additionally when the IV team came to his room to replace his IV which he had requested to be removed due swelling at the site, he communicated to them that he did not need another IV as he was leaving and had changed back into his clothes. Upon my reevaluation to again emphasize recommendation for admission he was on the phone arranging for his appointment with hemodialysis. At this time the patient's oxygen saturation was noted to be in the low to mid 80s despite his hypoxia he exhibited medical decision-making capacity. I explained to the patient that leaving would be AGAINST MEDICAL ADVICE and he understood the risks of this. As the patient was awaiting for transportation he suddenly again changed his mind regarding his willingness to be admitted to the hospital. I met with the patient again to see what had occurred that he had suddenly changed his mind and he became defensive and belligerent using profanity. I urged him that such behavior is inappropriate and not necessary. He agreed with plan to reconsult the admitting team to proceed with previously planned admission. Triage Nursing notes reviewed and agree them. Prior/outside medical records reviewed Vital Signs: reviewed Differential diagnosis: Fracture, dislocation, contusion, intra-abdominal, pneumothorax, intrathoracic, intracranial, neurologic, compartment syndrome, rhabdomyolysis, as well as other pathologies. ER treatment provided: See below. Diagnostics interpreted by me: ECG: Normal sinus rhythm, 82 bpm, no ectopy, no overt ST elevation or depre ssion, QTc 500, QRS 92. Cardiac Monitoring: An order for continuous cardiac monitoring was placed and demonstrated Normal sinus rhythm, 82 bpm, no ectopy Laboratory studies: See below Imaging studies: See below Consultation(s): Gita Lama, [facility] PAC, with Laura [facility] hospitalist. HPI: The patient is a 42-year-old gentleman with a past medical history of end- stage renal disease on hemodialysis Friday, COPD on 2 L home oxygen, type 1 diabetes, medical noncompliance, CHF, sarcoidosis, hypertension, hyperlipidemia who presents emerged department via EMS after fall down stairs when he became lightheaded due to low blood sugar in the 40s per the patient's report to EMS. The patient had taken an oral glucose and upon arriving emerged department blood sugars in the 400s. Patient denies any fevers, chills, cough congestion,, GI or symptoms preceding his presentation today. The patient did go to dialysis on Friday. He denies neck pain or back pain. He reports he fell down 20+ steps. He reports his roommate called the ambulance. ROS: See above HPI for pertinent positives & negatives. A total of 10 systems reviewed and were otherwise negative. VITALS:See Below PHYSICAL EXAMINATION: GENERAL: Awake, alert, fatigued-appearing, in no distress HENT: Normocephalic, 3 cm occipital hematoma without bony crepitus. There is no laceration. Oropharynx with dry mucous membranes and otherwise unremarkable. EOMI. No nystamgus. PEARRL. EYES: Normal conjunctiva. Sclera non-icteric. EOMI. No nystamgus. PEARRL. NECK: Supple. No nuchal rigidity. FROM. No JVD. RESPIRATORY: Diminished BS at the bases and otherwise clear to auscultation. CARDIAC: Regular rate, normal rhythm. Extremities warm and well perfused. Pulses equal. ABDOMEN: Soft, non-distended. No tenderness to palpation. No rebound or guarding. No masses. RECTAL: Deferred. MUSCULOSKELETAL: Chest examination reveals no tenderness. The back is symmetrical on inspection without obvious abnormality. No midline CTL spine tenderness to palpation or step-offs. There is no CVA tenderness to palpation. No joint edema. LOWER EXTREMITIES: Calves are equal size bilaterally and non-tender. No edema. No discoloration. NEURO: No focal sensory or motor deficits noted. Periodic myoclonic spasms. SKIN: No rash or jaundice noted. Jesús Sumner MD Past Med/Surg History Medical History (Updated 07/08/22 @ 20:30 by Jesús Sumner MD) A-V fistula right Anemia Chronic respiratory failure with hypoxia Chronic systolic CHF (congestive heart failure) Diabetes IDDM (Type 1 per records) Dyslipidemia End stage renal disease diaylsis - M,W,F ([facility], [place]) History of colon polyps Hypertension NICM (nonischemic cardiomyopathy) follows with [facility] cardiology Non compliance w medication regimen Obesity On home O2 pt states on 06/28/22 that he has not had to use oxygen for the last 2 months... 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 2021 Surgical History History of cardiac cath 07/2020 @ [facility]--unsure if had stents placed or not History of colonoscopy 01/25/21 [facility] History of esophagogastroduodenoscopy (EGD) 01/22/21 [facility] History of lung surgery removal of benign nodule History of myringotomy left ear History of surgery removal of permacath History of tooth extraction all top teeth removed History of vascular access device permacath insertion Hx of biopsy kidney bx PONV (postoperative nausea and vomiting) Status post creation of arteriovenous fistula right: 07/15/17: MAC sedation at [facility] Family History Father Hypertension Social History Smoking Status: Former smoker Tobacco Type: Cigarettes Second Hand Exposure: No; Hx Alcohol Use: No Hx Substance Use: Yes Prescribed Medications: Opiates Prescribed Medications Comment: follows with pain clinic Preferred Language: Polish Communication Ability: Effective Cinder Pit Worker Required: No Beliefs That Will Affect Care: None Current Living Situation: Other Current Living Situation Comment: roomates Other Information That Helps Us Care for You: No Feels Safe at Home: Yes Safety Concerns: Feels Safe At This Time Assistive Devices: Glasses and Oxygen - Continuous Allergies Allergies Allergy/AdvReac Type Severity Reaction Status Date / Time No Known Allergies Allergy Unknown Verified 06/28/22 10:51 Home Meds Home Medications Medication Instructions Recorded Confirmed amlodipine 10 mg tablet 10 mg PO HS 06/11/19 07/08/22 lisinopril 40 mg tablet 40 mg PO HS 06/11/19 07/08/22 hydralazine 25 mg tablet 25 mg PO BID 02/03/20 07/08/22 vitamin B complex-vitamin C-folic 1 tab PO 02/03/20 07/08/22 acid 0.8 mg tablet (Myrna-Bello) atorvastatin 40 mg tablet 40 mg PO HS 10/13/20 07/08/22 insulin aspart U-100 100 unit/mL 16 unit subcut 10/13/20 07/08/22 (3 mL) subcutaneous pen (Novolog FlexPen U-100 Insulin aspart) torsemide 100 mg tablet 100 mg PO 10/13/20 07/08/22 insulin glargine 100 unit/mL (3 50 unit subcut QA 01/29/21 07/08/22 mL) subcutaneous pen (Basaglar KwikPen U-100 Insulin) metoprolol succinate 50 mg 50 mg PO BID 05/02/21 07/08/22 tablet,extended release 24 hr lidocaine-prilocaine 2.5 %-2.5 % 1 applic topical 3XWK 05/23/21 07/08/22 topical cream sevelamer carbonate 800 mg tablet 1,600 mg PO 10/01/21 07/08/22 (Renvela) oxycodone 10 mg tablet 10 mg PO QID 06/28/22 07/08/22 trazodone 100 mg tablet 100 mg PO 07/08/22 07/08/22 Results & Data (ED) Vital Signs Vital Signs - 24 hr 07/08/22 06:25 07/08/22 07:25 07/08/22 09:26 Temperature 36.6 C Temperature Source Oral Pulse Rate 84 Pulse Rate [Apical] 79 75 Pulse Rhythm Regular Pulse Rhythm [Apical] Regular Regular Pulse Strength Normal Pulse Strength [Apical] Normal Respiratory Rate 20 18 18 Respiratory Effort / Characteristics Non-Labored Spontaneous Non-Labored Respiratory Depth Normal Normal Respiratory Pattern Regular Regular Blood Pressure 205/107 H Blood Pressure [Left Arm] 196/100 H 193/104 H Blood Pressure Mean 139 Blood Pressure Mean [Left Arm] 132 133 Blood Pressure Position Sitting Blood Pressure Position [Left Arm] Sitting Pulse Oximetry 91 94 Oxygen Delivery Method Oxymask Room Air Oxygen Flow Rate 10 Sepsis Recent Fever Within 48 Hours No Sepsis New/Unexplained Change in Mental Status N/A Sepsis Action Taken by Nursing No Action Required Laboratory Data Attestation: I reviewed the patient's lab results. 07/08/22 06:39 07/08/22 06:39 Lab Results 07/08/22 07/08/22 07/08/22 Range/Units 06:27 06:39 06:39 WBC 11.33 H (4.8-10.8) K/ul RBC 4.06 L (4.70-6.10) M/uL Hgb 12.2 L (14.0-18.0) g/dl Hct 36.6 L (42.0-52.0) % MCV 90.1 (80.0-100.0) fL MCH 30.0 (25.0-34.0) pg MCHC 33.3 (32.0-36.0) g/dL RDW Std Deviation 52.8 H (36.4-46.3) fL RDW Coeff of Selin 16.6 H (11.5-14.5) % Plt Count 182 (130-400) K/uL MPV 11.4 (9.4-12.4) fL Immature Gran % (Auto) 1.0 % Neut % (Auto) 79.9 % Lymph % (Auto) 6.9 % Rice % (Auto) 4.1 % Eos % (Auto) 7.1 % Baso % (Auto) 1.0 % Neut # (Auto) 9.06 H (1.40-6.50) K/uL Lymph # (Auto) 0.78 L (1.2-3.4) K/uL Rice # (Auto) 0.47 (0.11-0.59) K/uL Eos # (Auto) 0.80 H (0-0.50) K/uL Baso # (Auto) 0.11 (0-0.2) K/uL Immature Gran # (Auto) 0.11 (0.01-0.20) K/uL PT (9.0-12.0) Seconds INR (0.9-1.1) VBG pH (7.36-7.41) VBG pCO2 (38-50) mmHg VBG pO2 mmHg VBG HCO3 mmol/L VBG O2 Saturation % VBG Base Excess mEq/L Sodium 136 (136-145) mmol/L Potassium 5.4 H (3.5-5.1) mmol/L Chloride 98 (98-107) mmol/L Carbon Dioxide 25 (21-32) mmol/L Anion Gap 13 H (3-11) BUN 47 H (6-23) mg/dl Creatinine 11.35 H* (0.6-1.4) mg/dl Est Cr Clr Drug Dosing 9.9 ml/min Est GFR ( Amer) 5.8 ml/min Est GFR (Non-Af Amer) 5.0 ml/min BUN/Creatinine Ratio 4.1 L (10-20) Glucose 206 H (70-99(Fasting)) mg/dl POC Glucose 485 H* (70-99) mg/dl Calcium 9.2 (8.5-10.1) mg/dl Phosphorus 11.6 H (2.5-4.9) mg/dl Magnesium 2.7 H (1.7-2.4) mg/dl Total Bilirubin 0.9 (0.2-1.0) mg/dl AST 15 (13-39) U/L ALT 12 (7-52) U/L Alkaline Phosphatase 78 (34-104) U/L Troponin I High Sens 29.3 H (0-20) pg/ml Total Protein 6.9 (6.0-8.3) gm/dl Albumin 4.4 (3.4-5.0) gm/dl Globulin 2.5 (2.5-4.0) gm/dl Albumin/Globulin Ratio 1.8 (0.9-2) Lipase 38 (11-82) U/L SARS-CoV-2, RNA, NAAT (NEGATIVE) 07/08/22 07/08/22 07/08/22 Range/Units 07:05 07:05 11:16 WBC (4.8-10.8) K/ul RBC (4.70-6.10) M/uL Hgb (14.0-18.0) g/dl Hct (42.0-52.0) % MCV (80.0-100.0) fL MCH (25.0-34.0) pg MCHC (32.0-36.0) g/dL RDW Std Deviation (36.4-46.3) fL RDW Coeff of Selin (11.5-14.5) % Plt Count (130-400) K/uL MPV (9.4-12.4) fL Immature Gran % (Auto) % Neut % (Auto) % Lymph % (Auto) % Rice % (Auto) % Eos % (Auto) % Baso % (Auto) % Neut # (Auto) (1.40-6.50) K/uL Lymph # (Auto) (1.2-3.4) K/uL Rice # (Auto) (0.11-0.59) K/uL Eos # (Auto) (0-0.50) K/uL Baso # (Auto) (0-0.2) K/uL Immature Gran # (Auto) (0.01-0.20) K/uL PT 10.3 (9.0-12.0) Seconds INR 1.0 (0.9-1.1) VBG pH 7.36 (7.36-7.41) VBG pCO2 40 (38-50) mmHg VBG pO2 62 mmHg VBG HCO3 23 mmol/L VBG O2 Saturation 86.9 % VBG Base Excess -2.7 mEq/L Sodium (136-145) mmol/L Potassium (3.5-5.1) mmol/L Chloride (98-107) mmol/L Carbon Dioxide (21-32) mmol/L Anion Gap (3-11) BUN (6-23) mg/dl Creatinine (0.6-1.4) mg/dl Est Cr Clr Drug Dosing ml/min Est GFR ( Amer) ml/min Est GFR (Non-Af Amer) ml/min BUN/Creatinine Ratio (10-20) Glucose (70-99(Fasting)) mg/dl POC Glucose 273 H (70-99) mg/dl Calcium (8.5-10.1) mg/dl Phosphorus (2.5-4.9) mg/dl Magnesium (1.7-2.4) mg/dl Total Bilirubin (0.2-1.0) mg/dl AST (13-39) U/L ALT (7-52) U/L Alkaline Phosphatase (34-104) U/L Troponin I High Sens (0-20) pg/ml Total Protein (6.0-8.3) gm/dl Albumin (3.4-5.0) gm/dl Globulin (2.5-4.0) gm/dl Albumin/Globulin Ratio (0.9-2) Lipase (11-82) U/L SARS-CoV-2, RNA, NAAT (NEGATIVE) 07/08/22 Range/Units 11:30 WBC (4.8-10.8) K/ul RBC (4.70-6.10) M/uL Hgb (14.0-18.0) g/dl Hct (42.0-52.0) % MCV (80.0-100.0) fL MCH (25.0-34.0) pg MCHC (32.0-36.0) g/dL RDW Std Deviation (36.4-46.3) fL RDW Coeff of Selin (11.5-14.5) % Plt Count (130-400) K/uL MPV (9.4-12.4) fL Immature Gran % (Auto) % Neut % (Auto) % Lymph % (Auto) % Rice % (Auto) % Eos % (Auto) % Baso % (Auto) % Neut # (Auto) (1.40-6.50) K/uL Lymph # (Auto) (1.2-3.4) K/uL Rice # (Auto) (0.11-0.59) K/uL Eos # (Auto) (0-0.50) K/uL Baso # (Auto) (0-0.2) K/uL Immature Gran # (Auto) (0.01-0.20) K/uL PT (9.0-12.0) Seconds INR (0.9-1.1) VBG pH (7.36-7.41) VBG pCO2 (38-50) mmHg VBG pO2 mmHg VBG HCO3 mmol/L VBG O2 Saturation % VBG Base Excess mEq/L Sodium (136-145) mmol/L Potassium (3.5-5.1) mmol/L Chloride (98-107) mmol/L Carbon Dioxide (21-32) mmol/L Anion Gap (3-11) BUN (6-23) mg/dl Creatinine (0.6-1.4) mg/dl Est Cr Clr Drug Dosing ml/min Est GFR ( Amer) ml/min Est GFR (Non-Af Amer) ml/min BUN/Creatinine Ratio (10-20) Glucose (70-99(Fasting)) mg/dl POC Glucose (70-99) mg/dl Calcium (8.5-10.1) mg/dl Phosphorus (2.5-4.9) mg/dl Magnesium (1.7-2.4) mg/dl Total Bilirubin (0.2-1.0) mg/dl AST (13-39) U/L ALT (7-52) U/L Alkaline Phosphatase (34-104) U/L Troponin I High Sens (0-20) pg/ml Total Protein (6.0-8.3) gm/dl Albumin (3.4-5.0) gm/dl Globulin (2.5-4.0) gm/dl Albumin/Globulin Ratio (0.9-2) Lipase (11-82) U/L SARS-CoV-2, RNA, NAAT NEGATIVE (NEGATIVE) Administered Medications Amlodipine Besylate (Amlodipine Besylate 5 Mg Tab) 10 mg PO HS CHENG Stop: 08/07/22 20:59 Last Admin: 07/08/22 19:52 Dose: 10 mg Documented By: RH Atorvastatin Calcium (Atorvastatin 40 Mg Tab) 40 mg PO HS CHENG Stop: 08/07/22 20:59 Last Admin: 07/08/22 20:32 Dose: 40 mg Documented By: RH Diphenhydramine HCl (Diphenhydramine Capsule 25 Mg Cap) 25 mg PO DAILY PRN PRN Reason: itching Stop: 08/07/22 18:23 Last Admin: 07/08/22 20:31 Dose: 25 mg Documented By: RH Heparin Sodium (Porcine) (Heparin Sod 5,000 Unit/0.5 Ml Vial) 5,000 units SQ Q12 CHENG Stop: 08/07/22 20:59 Last Admin: 07/08/22 20:32 Dose: 5,000 units Documented By: RH Hydralazine HCl (Hydralazine Hcl 25 Mg Tab) 25 mg PO BID CHENG Stop: 08/07/22 20:59 Last Admin: 07/08/22 19:53 Dose: 25 mg Documented By: RH Insulin Aspart (Insulin Aspart Per Unit) 0 units SC ACHS CHENG Stop: 08/07/22 16:29 Last Admin: 07/08/22 20:37 Dose: 1 units Documented By: RH Co-signed By: TP Admin: 07/08/22 17:26 Dose: 8 units Documented By: NESS Co-signed By: DENNIS Lisinopril (Lisinopril 40 Mg Tab) 40 mg PO HS CHENG Stop: 08/07/22 20:59 Last Admin: 07/08/22 19:53 Dose: 40 mg Documented By: RH Metoprolol Succinate (Metoprolol Succ 50mg Ext Rel Tab) 50 mg PO BID CHENG Stop: 08/07/22 20:59 Last Admin: 07/08/22 19:52 Dose: 50 mg Documented By: RH Oxycodone HCl (Oxycodone Hcl Ir 5 Mg Tab (Immediate Release)) 10 mg PO QID CHENG Stop: 07/22/22 15:54 Last Admin: 07/08/22 20:31 Dose: 10 mg Documented By: Admin: 07/08/22 17:41 Dose: Not Given Documented By: Admin: 07/08/22 17:18 Dose: 10 mg Documented By: NESS Sevelamer HCl (Sevelamer Hcl 800 Mg Tablet) 1,600 mg PO AC [facility] Stop: 08/07/22 16:29 Last Admin: 07/08/22 17:18 Dose: 1,600 mg Documented By: NESS Torsemide (Torsemide 100 Mg Tab) 100 mg PO HS [facility] Stop: 08/07/22 20:59 Last Admin: 07/08/22 19:52 Dose: 100 mg Documented By: FRANSISCA Trazodone HCl (Trazodone Hcl 100 Mg Tab) 100 mg PO HS [facility] Stop: 08/07/22 20:59 Last Admin: 07/08/22 20:32 Dose: 100 mg Documented By: RH Discontinued Medications Heparin Sodium (Porcine) (Heparin Sod (Porcine) 1000 Unit/Ml) 1,000 units IV ONE ONE Stop: 07/08/22 12:11 Last Admin: 07/08/22 16:09 Dose: Not Given Documented By: NESS Hydralazine HCl (Hydralazine Hcl 25 Mg Tab) 25 mg PO NOW STA Stop: 07/08/22 16:28 Last Admin: 07/08/22 17:19 Dose: 25 mg Documented By: NESS Acetaminophen (Ofirmev) 1,000 mg in 100 mls @ 400 mls/hr IV NOW STA Stop: 07/08/22 06:58 Last Infusion: 07/08/22 08:09 Dose: 0 mls/hr Documented By: Admin: 07/08/22 07:21 Dose: 400 mls/hr Documented By: DANETTE Metoprolol Succinate (Metoprolol Succ 50mg Ext Rel Tab) 50 mg PO NOW STA Stop: 07/08/22 16:28 Last Admin: 07/08/22 17:19 Dose: 50 mg Documented By: NESS Torsemide (Torsemide 100 Mg Tab) 100 mg PO ONCE ONE Stop: 07/08/22 12:01 Last Admin: 07/08/22 12:34 Dose: 100 mg Documented By: BYRON Imaging Data Radiologist's Impression: Abdomen/Pelvis CT 07/08/22 06:[address] WITHOUT CONTRAST CT DOSE: 3716.17 mGy.ness HISTORY: Acute abdominal trauma status post fall trauma TECHNIQUE: Multiaxial CT images of the abdomen and pelvis were performed without contrast. A dose lowering technique was utilized adhering to the principles of ALARA. COMPARISON STUDY: Chest CT of same day, CT abdomen pelvis 11/23/2021. FINDINGS: Cardiomegaly. Small pleural effusions. Cardiomegaly with interstitial and alveolar pulmonary edema. Mild dependent bibasilar airspace consolidation. No pneumatosis or pneumoperitoneum. The spleen is enlarged, 15.5 cm in length. Unremarkable pancreas and adrenal glands. Mildly contracted gallbladder with equivocal wall thickening, similar to prior. Indeterminate 10 mm lesion of the subcapsular inferior right hepatic lobe on image 33 series 7 2 small to characterize. Liver is mildly enlarged. Moderately atrophic kidneys with cortical thinning redemonstrated. No hydronephrosis. Urinary bladder wall thickening with partial distention. Extensive vascular calcifications. No pathologically enlarged lymph nodes identified. No bowel obstruction or bowel wall thickening. Moderate colonic fecal retention. Hyperdense material within the mid to distal appendiceal lumen suggestive of retained enteric contrast. No CT evidence of acute appendicitis. Injection granulomata of the right anterior subcutaneous abdominal wall. No acute fracture identified. Unchanged nonspecific mixed sclerotic and lucent foci of the right iliac wing. IMPRESSION: 1. Cardiomegaly with pulmonary edema, small pleural effusions with mild dependen t bibasilar consolidation suggestive of atelectasis versus a mild nonspecific pneumonitis. 2. No acute intra-abdominal or intrapelvic abnormality identified. 3. Evidence of chronic medical renal disease. 4. Mild splenomegaly. ACT 112: Negative or not required by law. The above report was generated using voice recognition software. It may contain grammatical, syntax or spelling errors. Electronically signed by: Jimmy Hernandez M.D. 07/08/2022 9:[address] 07/08/22 06:44 CT chest diagnostic wo con CLINICAL HISTORY: trauma TECHNIQUE: Multidetector row helical CT of the chest was performed. Coronal and sagittal reformations were obtained. Automated dose lowering techniques and/or adjustment according to patient size were utilized for this exam. Comparison: Comparison is made to CT chest 11/23/2021 FINDINGS: Lungs and pleura: Smooth interlobular septal thickening is seen. There is airspace opacity in the bilateral lower lungs. A 15 mm groundglass density in the right lower lung is favored to also represent a focus of consolidation. Bilateral pleural effusions are seen. Heart and pericardium: Aortic valvular calcifications are seen. Vessels: Severe atherosclerotic changes in the aorta and coronary arteries. Mediastinum and maxwell: Numerous mediastinal lymph nodes are seen measuring up to 13 mm in diameter. Chest wall and lower neck: Unremarkable. Abdomen: For findings below the diaphragm, please refer to CT of the abdomen dated the same. Bones: Unremarkable. IMPRESSION: 1. Airspace opacities in the bilateral lower lungs are favored to represent pneumonia with reactive mediastinal lymphadenopathy. A component of alveolar edema cannot be entirely excluded. 2. Pulmonary edema and cardiomegaly. 3. No acute fractures. ACT 112: Negative or not required by law. Electronically signed by: Brandon Gómez M.D. 07/08/2022 8:36 AM Chest X-Ray 07/08/22 06:23 XR chest 1V portable CLINICAL HISTORY: Chest pain, nonspecific TECHNIQUE: Single frontal radiograph of the chest was obtained. Comparison: Comparison is made to chest radiograph 11/11/2021 FINDINGS: No lines and tubes are seen. Cardiomegaly is noted. There is prominence and cephalization of the vasculature with Stephanie B lines seen. No evidence of pleural effusion or pneumothorax. IMPRESSION: Cardiomegaly and moderate pulmonary edema. Otherwise no acute abnormalities. ACT 112: Negative or not required by law. Electronically signed by: Brandon Gómez M.D. 07/08/2022 7:[address] 07/08/22 06:39 CT cervical spine wo con CLINICAL HISTORY: trauma TECHNIQUE: Multidetector row helical CT of the cervical spine was performed without administration of intravenous contrast. Coronal and sagittal reformations were obtained. Automated dose lowering techniques and/or adjustment according to patient size were utilized for this exam. Comparison: Comparison is made to CT cervical spine 11/23/2021 FINDINGS: No acute fractures or subluxations are identified. Previously noted fractures of the left condyle and C3 have healed. The vertebral body heights and disk spaces are well maintained. There is straightening of the cervical spine. Calcification of the carotid bulbs and vertebral arteries incidentally noted. Incidental note is made of interlobular septal thickening. Partial visualization of a large lamellated calcification in the right submandibular region, possibly representing sialadenitis. IMPRESSION: Straightening of the cervical spine which can be seen in muscle spasm. No evidence of fracture. ACT 112: Negative or not required by law. Electronically signed by: Brandon Gómez M.D. 07/08/2022 8:[address] 07/08/22 06:39 CT head/brain wo con CLINICAL HISTORY: 42 years-old Male with trauma. Acute head trauma status post fall TECHNIQUE: Multiple axial CT images of the head were obtained without contrast. A dose lowering technique was utilized adhering to the principles of ALARA. COMPARISON: CT cervical spine of same day, head CT 11/23/2021 FINDINGS: No acute intracranial hemorrhage, midline shift, intracranial mass, hydrocephalus, territorial ischemia or abnormal extra-axial collection. Cerebral vascular calcifications. The calvarium is intact. The paranasal sinuses, mastoid air cells, and middle ear cavities are clear. IMPRESSION: No acute intracranial abnormality or calvarial fracture. ACT 112: Negative or not required by law. The above report was generated using voice recognition software. It may contain grammatical, syntax or spelling errors. Electronically signed by: Jimmy Hernandez M.D. 07/08/2022 8:14 AM Abdomen/Pelvis CT 07/08/22 06:[address] WITHOUT CONTRAST CT DOSE: 3716.17 mGy.cm HISTORY: Acute abdominal trauma status post fall trauma TECHNIQUE: Multiaxial CT images of the abdomen and pelvis were performed without contrast. A dose lowering technique was utilized adhering to the principles of ALARA. COMPARISON STUDY: Chest CT of same day, CT abdomen pelvis 11/23/2021. FINDINGS: Cardiomegaly. Small pleural effusions. Cardiomegaly with interstitial and alveolar pulmonary edema. Mild dependent bibasilar airspace consolidation. No pneumatosis or pneumoperitoneum. The spleen is enlarged, 15.5 cm in length. Unremarkable pancreas and adrenal glands. Mildly contracted gallbladder with equivocal wall thickening, similar to prior. Indeterminate 10 mm lesion of the subcapsular inferior right hepatic lobe on image 33 series 7 2 small to characterize. Liver is mildly enlarged. Moderately atrophic kidneys with cortical thinning redemonstrated. No hydronephrosis. Urinary bladder wall thickening with partial distention. Extensive vascular calcifications. No pathologically enlarged lymph nodes identified. No bowel obstruction or bowel wall thickening. Moderate colonic fecal retention. Hyperdense material within the mid to distal appendiceal lumen suggestive of retained enteric contrast. No CT evidence of acute appendicitis. Injection granulomata of the right anterior subcutaneous abdominal wall. No acute fracture identified. Unchanged nonspecific mixed sclerotic and lucent foci of the right iliac wing. IMPRESSION: 1. Cardiomegaly with pulmonary edema, small pleural effusions with mild dependent bibasilar consolidation suggestive of atelectasis versus a mild nonspecific pneumonitis. 2. No acute intra-abdominal or intrapelvic abnormality identified. 3. Evidence of chronic medical renal disease. 4. Mild splenomegaly. ACT 112: Negative or not required by law. The above report was generated using voice recognition software. It may contain grammatical, syntax or spelling errors. Electronically signed by: Jimmy Hernandez M.D. 07/08/2022 9:[address] 07/08/22 06:44 CT chest diagnostic wo con CLINICAL HISTORY: trauma TECHNIQUE: Multidetector row helical CT of the chest was performed. Coronal and sagittal reformations were obtained. Automated dose lowering techniques and/or adjustment according to patient size were utilized for this exam. Comparison: Comparison is made to CT chest 11/23/2021 FINDINGS: Lungs and pleura: Smooth interlobular septal thickening is seen. There is airspace opacity in the bilateral lower lungs. A 15 mm groundglass density in the right lower lung is favored to also represent a focus of consolidation. Bilateral pleural effusions are seen. Heart and pericardium: Aortic valvular calcifications are seen. Vessels: Severe atherosclerotic changes in the aorta and coronary arteries. Mediastinum and maxwell: Numerous mediastinal lymph nodes are seen measuring up to 13 mm in diameter. Chest wall and lower neck: Unremarkable. Abdomen: For findings below the diaphragm, please refer to CT of the abdomen dated the same. Bones: Unremarkable. IMPRESSION: 1. Airspace opacities in the bilateral lower lungs are favored to represent pneumonia with reactive mediastinal lymphadenopathy. A component of alveolar edema cannot be entirely excluded. 2. Pulmonary edema and cardiomegaly. 3. No acute fractures. ACT 112: Negative or not required by law. Electronically signed by: Brandon Gómez M.D. 07/08/2022 8:36 AM Discharge Plan Visit Data Chief Complaint: Fall Stated Complaint: Fall, Hypertension, Chest Pressure, Hypoglycemia ED Provider: Jesús Sumner Discharge Problem: Hypoxia, End-stage renal disease on hemodialysis, Hyperphosphatemia, Fall down stairs Patient Disposition: Admitted As Inpatient Discharge Instructions Interventions: ED Discharge Assessment Last Done: 07/08/22 13:46
[2022-07-08 07:30] LABS: Base Excess VBG -2.7 mEq/L; HCO3 VBG 23 mmol/L; Oxygen Saturation VBG 86.9 %; PCO2 VBG 40 mmHg (38-50); PO2 VBG 62 mmHg; pH VBG 7.36 (7.36-7.41)
--- NOTE | 2022-07-08 07:31 | XRay Report ---
XR chest 1V portable CLINICAL HISTORY: Chest pain, nonspecific TECHNIQUE: Single frontal radiograph of the chest was obtained. Comparison: Comparison is made to chest radiograph 11/11/2021 FINDINGS: No lines and tubes are seen. Cardiomegaly is noted. There is prominence and cephalization of the vasc ulature with Stephanie B lines seen. No evidence of pleural effusion or pneumothorax. IMPRESSION: Cardiomegaly and moderate pulmonary edema. Otherwise no acute abnormalities. ACT 112: Negative or not required by law. Electronically signed by: Brandon Gómez M.D. 07/08/2022 7:29 AM
[2022-07-08 07:44] LABS: Albumin Globulin Ratio 1.8 (0.9-2); Albumin Level 4.4 gm/dl (3.4-5.0); BUN Creatinine Ratio 4.1 (10-20); Bilirubin,Total 0.9 mg/dl (0.2-1.0); Calcium 9.2 mg/dl (8.5-10.1); Creatinine Clr Calc Pharmacy 9.9 ml/min; Est GFR (African American) 5.8 ml/min; Globulin 2.5 gm/dl (2.5-4.0); Magnesium 2.7 mg/dl (1.7-2.4); Phosphorus 11.6 mg/dl (2.5-4.9); Potassium 5.4 mmol/L (3.5-5.1); Total Protein 6.9 gm/dl (6.0-8.3); Troponin I High Sensitivity 29.3 pg/ml (0-20)
[2022-07-08 08:03] LABS: Prothrombin Time 10.3 Seconds (9.0-12.0)
--- NOTE | 2022-07-08 08:06 | CT Scan Report ---
CT cervical spine wo con CLINICAL HISTORY: trauma TECHNIQUE: Multidetector row helical CT of the cervical spine was performed without administration of intravenous contrast. Coronal and sagittal reformations were obtained. Automated dose lowering techn iques and/or adjustment according to patient size were utilized for this exam. Comparison: Comparison is made to CT cervical spine 11/23/2021 FINDINGS: No acute fractures or subluxations are identified. Previously noted fractures of the left condyle and C3 have healed. The vertebral body heights and disk spaces are well maintained. There is straighteni ng of the cervical spine. Calcification of the carotid bulbs and vertebral arteries incidentally note d. Incidental note is made of interlobular septal thickening. Partial visualization of a large lamell ated calcification in the right submandibular region, possibly representing sialadenitis. IMPRESSION: Straightening of the cervical spine which can be seen in muscle spasm. No evidence of fracture. ACT 112: Negative or not required by law. Electronically signed by: Brandon Gómez M.D. 07/08/2022 8:05 AM
--- NOTE | 2022-07-08 08:17 | CT Scan Report ---
CT head/brain wo con CLINICAL HISTORY: 42 years-old Male with trauma. Acute head trauma status post fall TECHNIQUE: Multiple axial CT images of the head were obtained without contrast. A dose lowering tech nique was utilized adhering to the principles of ALARA. COMPARISON: CT cervical spine of same day, head CT 11/23/2021 FINDINGS: No acute intracranial hemorrhage, midline shift, intracranial mass, hydrocephalus, territorial ischem ia or abnormal extra-axial collection. Cerebral vascular calcifications. The calvarium is intact. The paranasal sinuses, mastoid air cells, and middle ear cavities are clear . IMPRESSION: No acute intracranial abnormality or calvarial fracture. ACT 112: Negative or not required by law. The above report was generated using voice recognition software. It may contain grammatical, syntax o r spelling errors. Electronically signed by: Jimmy Hernandez M.D. 07/08/2022 8:14 AM
--- NOTE | 2022-07-08 08:38 | CT Scan Report ---
CT chest diagnostic wo con CLINICAL HISTORY: trauma TECHNIQUE: Multidetector row helical CT of the chest was performed. Coronal and sagittal reformations were obtained. Automated dose lowering techniques and/or adjustment according to patient size were u tilized for this exam. Comparison: Comparison is made to CT chest 11/23/2021 FINDINGS: Lungs and pleura: Smooth interlobular septal thickening is seen. There is airspace opacity in the faith ateral lower lungs. A 15 mm groundglass density in the right lower lung is favored to also represent a focus of consolidation. Bilateral pleural effusions are seen. Heart and pericardium: Aortic valvular calcifications are seen. Vessels: Severe atherosclerotic changes in the aorta and coronary arteries. Mediastinum and maxwell: Numerous mediastinal lymph nodes are seen measuring up to 13 mm in diameter. Chest wall and lower neck: Unremarkable. Abdomen: For findings below the diaphragm, please refer to CT of the abdomen dated the same. Bones: Unremarkable. IMPRESSION: 1. Airspace opacities in the bilateral lower lungs are favored to represent pneumonia with reactive mediastinal lymphadenopathy. A component of alveolar edema cannot be entirely excluded. 2. Pulmonary edema and cardiomegaly. 3. No acute fractures. ACT 112: Negative or not required by law. Electronically signed by: Brandon Gómez M.D. 07/08/2022 8:36 AM
--- NOTE | 2022-07-08 09:08 | CT Scan Report ---
ABDOMEN AND PELVIS CT WITHOUT CONTRAST CT DOSE: 3716.17 mGy.cm HISTORY: Acute abdominal trauma status post fall trauma TECHNIQUE: Multiaxial CT images of the abdomen and pelvis were performed without contrast. A dose lo wering technique was utilized adhering to the principles of ALARA. COMPARISON STUDY: Chest CT of same day, CT abdomen pelvis 11/23/2021. FINDINGS: Cardiomegaly. Small pleural effusions. Cardiomegaly with interstitial and alveolar pulmonar y edema. Mild dependent bibasilar airspace consolidation. No pneumatosis or pneumoperitoneum. The spleen is enlarged, 15.5 cm in length. Unremarkable pancreas and adrenal glands. Mildly contracte d gallbladder with equivocal wall thickening, similar to prior. Indeterminate 10 mm lesion of the sub capsular inferior right hepatic lobe on image 33 series 7 2 small to characterize. Liver is mildly en larged. Moderately atrophic kidneys with cortical thinning redemonstrated. No hydronephrosis. Urinary bladder wall thickening with partial distention. Extensive vascular calcifications. No pathologically enlarg ed lymph nodes identified. No bowel obstruction or bowel wall thickening. Moderate colonic fecal retention. Hyperdense material within the mid to distal appendiceal lumen suggestive of retained enteric contrast. No CT evidence of acute appendicitis. Injection granulomata of the right anterior subcutaneous abdominal wall. No acut e fracture identified. Unchanged nonspecific mixed sclerotic and lucent foci of the right iliac wing. IMPRESSION: 1. Cardiomegaly with pulmonary edema, small pleural effusions with mild dependent bibasilar consolida tion suggestive of atelectasis versus a mild nonspecific pneumonitis. 2. No acute intra-abdominal or intrapelvic abnormality identified. 3. Evidence of chronic medical renal disease. 4. Mild splenomegaly. ACT 112: Negative or not required by law. The above report was generated using voice recognition software. It may contain grammatical, syntax o r spelling errors. Electronically signed by: Jimmy Hernandez M.D. 07/08/2022 9:06 AM
--- NOTE | 2022-07-08 09:17 | Electrocardiogram Report ---
Test Reason : Blood Pressure : / mmHG Vent. Rate : 082 BPM Atrial Rate : 082 BPM P-R Int : 166 ms QRS Dur : 092 ms QT Int : 428 ms P-R-T Axes : 057 -24 066 degrees QTc Int : 500 ms Normal sinus rhythm Prolonged QT Abnormal ECG When compared with ECG of 23-NOV-2021 11:16, Minimal criteria for Anterior infarct are no longer Present Nonspecific T wave abnormality no longer evident in Anterolateral leads Confirmed by Raghu Oconnell ([id number]) on 07/08/2022 9:16:55 AM Referred By: Confirmed By:Raghu Oconnell
--- NOTE | 2022-07-08 10:15 | Communication Note ---
Date of Service: July 08, 2022 Called to admit patient who had fallen at home with hypoglycemia On entering the room, patient stated he wants to go home. I explained the reasons ER called for his admission including HD and optimization of his diabetes management to avoid recurrent hypoglycemic episodes with falls as in the past. We discussed the need for admission Patient stated he understood those but declined evaluation and admission. ER physician notified
--- NOTE | 2022-07-08 11:45 | History & Physical Report ---
Date of Service July 08, 2022 Assessment & Plan (1) Hypoglycemia: Plan: 42 y/o male with a complicated PMH including DM1 and ESRD on HD presented to the ED today for recurrent falls and hypoglycemia. Pt reports at least five falls in the last week, with most recent fall attributed to hypoglycemic episode this morning. Pt reports his blood sugars have been labile to he has been self- titrating his insulin to try to adjust for this. He is currently using 50 units Lantus in the AM and 16 units of Novolog with meals. It is unclear how compliant he is with a diabetic renal diet as he reports that he is a picky eater. Initially pt declined admission, but ultimately decided that he would agree to be admitted at least overnight to attempt to address his blood sugars. - Admit to PCU - Hold basal insulin for now, use insulin sliding scale and monitor - consult pharmacy for assistance with glycemic management. Will also consult shoe stainer. Discussed with pt the importance of ongoing follow-up outpatient. May need to adjust outpatient insulin regimen prior to discharge. - Encourage compliance with diabetic diet (2) Volume overload: Plan: Pt is due for HD today so this is likely etiology - Consult nephrology - spoke with Dr. Thomson who will help arrange for HD - Resume outpatient torsemide (3) Recurrent falls: Plan: - PT/OT evals - Fall precautions (4) Hyperphosphatemia: Plan: Ongoing issue per pt - HD today - Appreciate nephro input (5) Chronic respiratory failure with hypoxia: Plan: Pt has been noncompliant with home O2 - was previously using 3 L continuous with up to 5L with activity but self-discontinued - Continue O2 while admitted (6) End stage renal disease: (7) DM type 1 (diabetes mellitus, type 1): (8) NICM (nonischemic cardiomyopathy): (9) Hypertension: (10) Dyslipidemia: Plan Continue other home medications as appropriate Pt seen and reviewed with collaborating physician, Dr. Sanchez. Plan of care discussed and as outlined above Code Status: Full Code DVT Prophylaxis: subQ heparin Sánchez Lama PA-C History of Present Illness Chief Complaint: Falls Primary Care Provider: Jaime Lovelace MD This is a 42 y/o male with a complicated PMH including Type 1 DM, ESRD on HD, chronic respiratory failure with hypoxia, anemia, dyslipidemia, and nonischemic cardiomyopathy who presented to the ED today after a fall at home. He states that for the last few days, he has had multiple episodes of "seizures" that he describes as "flapping around" but no loss of consciousness. This morning, when he got up his sugar was 57 - drank Pepsi and ate Zebra cakes to help but did not recheck it. When he attempted to go down the starts, he apparently lost his balance, slid down the stairs, and hit his head. He reports at least 5 falls in the last week. His blood sugars have been labile. He was referred to glycemic management to consider a pump but they were unable to reach the patient to schedule. He states he would be willing to see them. Currently, he may check his sugar up to seven times per day depending on how he feels. Currently, using Lantus 50 units in the morning (usually between 5 and 8 am), 16 unit Novolog with every meal - last insulin he took at home was 16 units at 5 pm yesterday. He titrates his own insulin. Last saw endocrinology > 20 years ago. Pt is on HD M/W/F - last treatment was Fri of last week. He does still may a small amount of urine - no dysuria, no hematuria. Rare N/V but no abdominal pain, diarrhea. No fevers, chills, runny nose, cough. Has HAs but unsure if related to falls. Ongoing issue with TEE and SOB at rest. Previously on 3L of O2 at home but stopped this on his own. Had chest pain on the way to the hospital but it has since resolved. Outpatient records extensively reviewed - pt appears to have a history of similar symptoms in the past with hypoglycemia resulting in falls - has also been seen in the [place] ED, had a prior C-spine fracture. Allergies Allergy/AdvReac Type Severity Reaction Status Date / Time No Known Allergies Allergy Unknown Verified 06/28/22 10:51 Home Medications Medication Instructions Recorded Confirmed Type amlodipine 10 mg tablet 10 mg PO HS 06/11/19 07/08/22 History lisinopril 40 mg tablet 40 mg PO HS 06/11/19 07/08/22 History hydralazine 25 mg tablet 25 mg PO BID 02/03/20 07/08/22 History vitamin B complex-vitamin C-folic 1 tab PO HS 02/03/20 07/08/22 History acid 0.8 mg tablet (Myrna-Bello) atorvastatin 40 mg tablet 40 mg PO HS 10/13/20 07/08/22 History insulin aspart U-100 100 unit/mL 16 unit subcut AC 10/13/20 07/08/22 History (3 mL) subcutaneous pen (Novolog FlexPen U-100 Insulin aspart) torsemide 100 mg tablet 100 mg PO HS 10/13/20 07/08/22 History insulin glargine 100 unit/mL (3 50 unit subcut QAM 01/29/21 07/08/22 History mL) subcutaneous pen (Basaglar KwikPen U-100 Insulin) metoprolol succinate 50 mg 50 mg PO BID 05/02/21 07/08/22 History tablet,extended release 24 hr lidocaine-prilocaine 2.5 %-2.5 % 1 applic topical 3XWK 05/23/21 07/08/22 History topical cream sevelamer carbonate 800 mg tablet 1,600 mg PO AC 10/01/21 07/08/22 History (Renvela) oxycodone 10 mg tablet 10 mg PO QID 06/28/22 07/08/22 History trazodone 100 mg tablet 100 mg PO HS 07/08/22 07/08/22 History Past Med/Surg History Medical History A-V fistula right Anemia Chronic respiratory failure with hypoxia Chronic systolic CHF (congestive heart failure) Diabetes IDDM (Type 1 per records) Dyslipidemia End stage renal disease diaylsis - M,W,F ([facility], [place]) History of colon polyps Hypertension NICM (nonischemic cardiomyopathy) follows with [facility] cardiology Non compliance w medication regimen Obesity On home O2 pt states on 06/28/22 that he has not had to use oxygen for the last 2 months... 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 Sarcoidosis per records Seizure disorder remote hx (2007) in setting of hypoglycemia (?ETOH related per records), no issues since Surgical History History of cardiac cath 07/2020 @ [facility]--unsure if had stents placed or not History of colonoscopy 01/25/21 [facility] History of esophagogastroduodenoscopy (EGD) 01/22/21 [facility] History of lung surgery removal of benign nodule History of myringotomy left ear History of surgery removal of permacath History of tooth extraction all top teeth removed History of vascular access device permacath insertion Hx of biopsy kidney bx PONV (postoperative nausea and vomiting) Status post creation of arteriovenous fistula right: 07/15/17: MAC sedation at [facility] Family History Father Hypertension Social History Smoking Status: Former smoker Tobacco Type: Cigarettes Second Hand Exposure: No; Hx Alcohol Use: No Hx Substance Use: Yes Prescribed Medications: Opiates Prescribed Medications Comment: follows with pain clinic Preferred Language: Pashto Communication Ability: Effective Electrical Sign Servicer Required: No Beliefs That Will Affect Care: None Current Living Situation: Other Current Living Situation Comment: Lives with roommate Feels Safe at Home: Yes Assistive Devices: Glasses and Oxygen - Continuous Review of Systems Review of Systems: All systems reviewed & are unremarkable except as noted in HPI & below Constitutional: no fever and no chills Eyes: no diplopia Ear, Nose, Mouth, Throat: no nasal discharge and no sore throat Respiratory: + dyspnea (chronic issue - discontinued his home O2 on his own); no cough Cardiovascular: as per Subjective / HPI Gastrointestinal: as per Subjective / HPI; no change in bowel habits and no blood in stools Genitourinary: no dysuria or no hematuria Musculoskeletal: + problem reported (chronic pain - follows w/ pain management, on oxycodone 4x/day) Integumentary: no yellowing of the skin Neurologic: + seizure-like activity, + dizziness and + headache(s) Physical Exam Constitutional: well developed and well nourished; no acute distress Eyes: + anicteric sclerae Neck: trachea midline Respiratory: no respiratory distress and no labored breathing Auscultation: lungs clear to auscultation bilaterally Cardiovascular: Rate/Rhythm: regular rate and regular rhythm Extremities: no pedal edema Gastrointestinal (Abdomen): Inspection/Auscultation: normal bowel sounds; abdomen not distended Percussion/Palpation: abdomen soft; abdomen nontender Musculoskeletal: Head/Neck/Chest: + scalp tenderness (posterior where hit head with fall) Skin: no jaundice Neurologic: moves all extremities; no focal motor deficits and not confused Psychiatric: A+Ox3, euthymic affect Results & Data Results & Data ([facility]) Vital Signs (Past 12 Hours) Vital Signs Temp Pulse Pulse Resp BP BP Pulse Ox 07/08/22 09:26 75 18 193/104 H 07/08/22 07:25 79 18 196/100 H 94 07/08/22 06:25 36.6 C 84 20 205/107 H 91 O2 Del Method O2 Flow Rate 07/08/22 09:26 07/08/22 07:25 Room Air 07/08/22 06:25 Oxymask 10 Laboratory Results Laboratory Results - last 24 hr 07/08/22 07/08/22 07/08/22 06:27 06:39 06:39 WBC 11.33 H RBC 4.06 L Hgb 12.2 L Hct 36.6 L MCV 90.1 MCH 30.0 MCHC 33.3 RDW Std Deviation 52.8 H RDW Coeff of Selin 16.6 H Plt Count 182 MPV 11.4 Immature Gran % (Auto) 1.0 Neut % (Auto) 79.9 Lymph % (Auto) 6.9 Meigs % (Auto) 4.1 Eos % (Auto) 7.1 Baso % (Auto) 1.0 Neut # (Auto) 9.06 H Lymph # (Auto) 0.78 L Meigs # (Auto) 0.47 Eos # (Auto) 0.80 H Baso # (Auto) 0.11 Immature Gran # (Auto) 0.11 PT INR VBG pH VBG pCO2 VBG pO2 VBG HCO3 VBG O2 Saturation VBG Base Excess Sodium 136 Potassium 5.4 H Chloride 98 Carbon Dioxide 25 Anion Gap 13 H BUN 47 H Creatinine 11.35 H* Est Cr Clr Drug Dosing 9.9 Est GFR ( Amer) 5.8 Est GFR (Non-Af Amer) 5.0 BUN/Creatinine Ratio 4.1 L Glucose 206 H POC Glucose 485 H* Calcium 9.2 Phosphorus 11.6 H Magnesium 2.7 H Total Bilirubin 0.9 AST 15 ALT 12 Alkaline Phosphatase 78 Troponin I High Sens 29.3 H Total Protein 6.9 Albumin 4.4 Globulin 2.5 Albumin/Globulin Ratio 1.8 Lipase 38 SARS-CoV-2, RNA, NAAT 07/08/22 07/08/22 07/08/22 07:05 07:05 11:16 WBC RBC Hgb Hct MCV MCH MCHC RDW Std Deviation RDW Coeff of Selin Plt Count MPV Immature Gran % (Auto) Neut % (Auto) Lymph % (Auto) Meigs % (Auto) Eos % (Auto) Baso % (Auto) Neut # (Auto) Lymph # (Auto) Meigs # (Auto) Eos # (Auto) Baso # (Auto) Immature Gran # (Auto) PT 10.3 INR 1.0 VBG pH 7.36 VBG pCO2 40 VBG pO2 62 VBG HCO3 23 VBG O2 Saturation 86.9 VBG Base Excess -2.7 Sodium Potassium Chloride Carbon Dioxide Anion Gap BUN Creatinine Est Cr Clr Drug Dosing Est GFR ( Amer) Est GFR (Non-Af Amer) BUN/Creatinine Ratio Glucose POC Glucose 273 H Calcium Phosphorus Magnesium Total Bilirubin AST ALT Alkaline Phosphatase Troponin I High Sens Total Protein Albumin Globulin Albumin/Globulin Ratio Lipase SARS-CoV-2, RNA, NAAT 07/08/22 11:30 WBC RBC Hgb Hct MCV MCH MCHC RDW Std Deviation RDW Coeff of Selin Plt Count MPV Immature Gran % (Auto) Neut % (Auto) Lymph % (Auto) Meigs % (Auto) Eos % (Auto) Baso % (Auto) Neut # (Auto) Lymph # (Auto) Meigs # (Auto) Eos # (Auto) Baso # (Auto) Immature Gran # (Auto) PT INR VBG pH VBG pCO2 VBG pO2 VBG HCO3 VBG O2 Saturation VBG Base Excess Sodium Potassium Chloride Carbon Dioxide Anion Gap BUN Creatinine Est Cr Clr Drug Dosing Est GFR ( Amer) Est GFR (Non-Af Amer) BUN/Creatinine Ratio Glucose POC Glucose Calcium Phosphorus Magnesium Total Bilirubin AST ALT Alkaline Phosphatase Troponin I High Sens Total Protein Albumin Globulin Albumin/Globulin Ratio Lipase SARS-CoV-2, RNA, NAAT Pending Diagnostic Findings Chest X-ray 07/08/22 - IMPRESSION: Cardiomegaly and moderate pulmonary edema. Otherwise no acute abnormalities. Medications Administered Discontinued Medications Acetaminophen (Ofirmev) 1,000 mg in 100 mls @ 400 mls/hr IV NOW STA Stop: 07/08/22 06:58 Last Infusion: 07/08/22 08:09 Dose: 0 mls/hr Documented By: Admin: 07/08/22 07:21 Dose: 400 mls/hr Documented By: DANETTE Torsemide (Torsemide 100 Mg Tab) 100 mg PO ONCE ONE Stop: 07/08/22 12:01 Last Admin: 07/08/22 12:34 Dose: 100 mg Documented By: BYRON Supervising Physician Co-Signing Physician Notes History and physical exam performed by me. History notable for 42-year-old type I diabetic end-stage renal disease patient on hemodialysis who presents after a fall at home. Reports he is following multiple times in the past week and fell today without any loss of consciousness with report of blood glucose in the 50s. Patient has had similar presentations in the past he had an outside hospital for falls which usually related to his glycemic control plus or minus blood pressure. Patient initially declined admission but later changed his mind. Reports chronic dyspnea,. Denied chest pain or cough Denies any loss of consciousness. Reports some dizziness prior to the falls. Reports adherence to medication but not to diet Reports he was on chronic 3l in the past but stopped the oxygen on his own Exam notable for mild tenderness over occipital region (area of fall), diminished breath sounds, no pedal edema, elevated blood pressure 193/104 Imaging reviewed. No acute fractures noted. Chest x-ray showed pulmonary edema Labs notable for potassium of 5.4, creatinine of 11.35, phosphorus of 11.6, magnesium of 2.7, troponin of 29.3 Recurrent falls at home. Hypoglycemia Hold home antidiabetic regimen. Blood glucose was reported to be 50s at home but it took some Pepsi and by the time he arrived was 485 but then down to 273 We will manage with insulin sliding scale for now and adjust as needed Patient is frustrated about recurrent episode. We will get shoe stainer on board. We will monitor blood glucose over next 24hours and make adjustments as needed. We will get PT/OT evaluation Piano Sounding Board Matcher notified for hemodialysis Other plans as detailed by Destiny Lama PA-C
[2022-07-08] MEDS ORDERED: TORSEMIDE 100 MG TAB PO ONE (12:00)
[2022-07-08] MEDS ORDERED: SODIUM CHLORIDE 0.9% 1000ML 1,000 ML IV PRN (12:08)
[2022-07-08] MEDS ORDERED: HEPARIN SOD (PORCINE) 1000 UNIT/ML IV ONE (12:10)
[2022-07-08] MEDS ORDERED: GLUCAGON FOR INJ 1 MG VIAL SQ PRN (15:55)
[2022-07-08] MEDS ORDERED: GLUCOSE 40% GEL 15 GM TUBE PO PRN (15:55)
[2022-07-08] MEDS ORDERED: CARBOHYDRATES FOR HYPOGLYCEMIA PO PRN (15:55)
[2022-07-08] MEDS ORDERED: GLUCOSE 10 TAB/TUBE PO PRN (15:55)
[2022-07-08] MEDS ORDERED: PHARMACY GLYCEMIC MGMT CONSULT PRN (15:55)
[2022-07-08] MEDS ORDERED: DEXTROSE 50% 50 ML SYRINGE IV PRN (15:55)
--- NOTE | 2022-07-08 16:20 | Nephrology Consultation ---
Date of Consultation July 08, 2022 Assessment & Plan (1) ESRD (end stage renal disease) on dialysis: ESRD on MWF HD; shortened tx today >reassess for treatment in AM -ordered 1.5 L fluid limit given volume overload (2) Hypertensive urgency: needs more dialysis to help manage this continue home meds >> did d/w hospitalist team to give meds he missed this am now for HTN overnight, can give IV hydralazine, IV metoprolol History of Present Illness Reason for Consultation: ESRD on dialysis Requesting Physician: Dr Sanchez Attending Physician: So Sanchez MD History of Present Illness 42 y/o M whom I'm asked to see for dialysis was admitted today for management of hypoglycemia w/ recurrent falls, at least 5 in the past week. PMH includes type 1 diabetes, nonischemic cardiomyopathy, chronic systolic heart failure, sarcoidosis, chronic oxygen needs in the past but he stopped this on his own, chronic anemia, obesity, nonadherence to medical therapies and dietary recommendations. He had a tubulovillous adenoma w/ high grade dysplasia on September 2021 colonoscopy and asked to repeat close in (I believe in 6 mos) but has been refusing. He fell earlier this year d/t hypoglycemia and fractured his cervical spine and R arm and was admitted to [facility] for an extended period. Fractures were managed w/o surgery. Admission work up notable for volume overload and hypoxia. He initially refused admission but is agreeable subsequently while we work on his BG. I arranged for dialysis today > he tolerated 2.8 L UF but signed off 30 minutes early. This is not atypical for him to shorten treatments for various reasons whether u ncontrolled pain or anxiety or simple preference. today he stopped d/t pruritis and "b/c I've had a long day." When I saw him just after HD, his BP was uncontrolled at 200 systolic. he denied sob, chest pain, confusion, acute viscion changes, numbness or weakness. Allergies Allergy/AdvReac Type Severity Reaction Status Date / Time No Known Allergies Allergy Unknown Verified 06/28/22 10:51 Home Medications Medication Instructions Recorded Confirmed Type amlodipine 10 mg tablet 10 mg PO HS 06/11/19 07/08/22 History lisinopril 40 mg tablet 40 mg PO HS 06/11/19 07/08/22 History hydralazine 25 mg tablet 25 mg PO BID 02/03/20 07/08/22 History vitamin B complex-vitamin C-folic 1 tab PO HS 02/03/20 07/08/22 History acid 0.8 mg tablet (Myrna-Bello) atorvastatin 40 mg tablet 40 mg PO HS 10/13/20 07/08/22 History insulin aspart U-100 100 unit/mL 16 unit subcut AC 10/13/20 07/08/22 History (3 mL) subcutaneous pen (Novolog FlexPen U-100 Insulin aspart) torsemide 100 mg tablet 100 mg PO HS 10/13/20 07/08/22 History insulin glargine 100 unit/mL (3 50 unit subcut QAM 01/29/21 07/08/22 History mL) subcutaneous pen (Basaglar KwikPen U-100 Insulin) metoprolol succinate 50 mg 50 mg PO BID 05/02/21 07/08/22 History tablet,extended release 24 hr lidocaine-prilocaine 2.5 %-2.5 % 1 applic topical 3XWK 05/23/21 07/08/22 History topical cream sevelamer carbonate 800 mg tablet 1,600 mg PO AC 10/01/21 07/08/22 History (Renvela) oxycodone 10 mg tablet 10 mg PO QID 06/28/22 07/08/22 History trazodone 100 mg tablet 100 mg PO HS 07/08/22 07/08/22 History Patient History Medical History (Updated 07/08/22 @ 16:34 by Nicki Thomson MD, PhD) A-V fistula right Anemia Chronic respiratory failure with hypoxia Chronic systolic CHF (congestive heart failure) Diabetes IDDM (Type 1 per records) Dyslipidemia End stage renal disease diaylsis - M,W,F ([facility], [place]) History of colon polyps Hypertension NICM (nonischemic cardiomyopathy) follows with [facility] cardiology Non compliance w medication regimen Obesity On home O2 pt states on 06/28/22 that he has not had to use oxygen for the last 2 months... 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 2021 Surgical History History of cardiac cath 07/2020 @ [facility]--unsure if had stents placed or not History of colonoscopy 01/25/21 [facility] History of esophagogastroduodenoscopy (EGD) 01/22/21 [facility] History of lung surgery removal of benign nodule History of myringotomy left ear History of surgery removal of permacath History of tooth extraction all top teeth removed History of vascular access device permacath insertion Hx of biopsy kidney bx PONV (postoperative nausea and vomiting) Status post creation of arteriovenous fistula right: 07/15/17: MAC sedation at [facility] Family History Father Hypertension Social History Smoking Status: Former smoker Tobacco Type: Cigarettes Second Hand Exposure: No; Hx Alcohol Use: No Hx Substance Use: Yes Prescribed Medications: Opiates Prescribed Medications Comment: follows with pain clinic Preferred Language: Maori Communication Ability: Effective Wire Inspector Required: No Beliefs That Will Affect Care: None Current Living Situation: Other Current Living Situation Comment: Lives with roommate Feels Safe at Home: Yes Assistive Devices: Glasses and Oxygen - Continuous Review of Systems Review of Systems: All systems reviewed & are unremarkable except as noted in HPI & below Physical Exam Constitutional: well developed, well nourished, + obese and cooperative; no acute distress Eyes: EOM intact bilaterally ENMT: Ears: no external ear abnormality Nose: no external nose abnormality Mouth: + dry oral mucous membranes Neck: no nuchal rigidity Respiratory: normal respiratory effort Auscultation: + diminished lung sounds and + crackles (diminished bibasilar) Cardiovascular: Rate/Rhythm: regular rate and regular rhythm Heart Sounds: + murmur Extremities: + AV fistula (+ t/b); no edema Gastrointestinal (Abdomen): Inspection/Auscultation: normal bowel sounds Percussion/Palpation: abdomen soft; abdomen nontender Musculoskeletal: Extremities: strength 5/5 throughout Skin: no rashes, warm and dry Neurologic: morocho, fluent speech, no tremor Psychiatric: Orientation: alert and oriented x 3 Results & Data ([facility]) Vital Signs (Past 12 Hours) Vital Signs Temp Pulse Pulse Resp BP BP Pulse Ox 07/08/22 09:26 75 18 193/104 H 07/08/22 07:25 79 18 196/100 H 94 07/08/22 06:25 36.6 C 84 20 205/107 H 91 O2 Del Method O2 Flow Rate 07/08/22 09:26 07/08/22 07:25 Room Air 07/08/22 06:25 Oxymask 10 Laboratory Results 07/08/22 06:39 07/08/22 06:[address] chest 1. Airspace opacities in the bilateral lower lungs are favored to represent pneumonia with reactive mediastinal lymphadenopathy. A component of alveolar edema cannot be entirely excluded. 2. Pulmonary edema and cardiomegaly. 3. No acute fractures. CT neck no fracture CT a/p 1. Cardiomegaly with pulmonary edema, small pleural effusions with mild dependent bibasilar consolidation suggestive of atelectasis versus a mild nonspecific pneumonitis. 2. No acute intra-abdominal or intrapelvic abnormality identified. 3. Evidence of chronic medical renal disease. 4. Mild splenomegaly.
[2022-07-08] MEDS ORDERED: hydrALAZINE HCL 25 MG TAB PO STA (16:27)
[2022-07-08] MEDS ORDERED: METOPROLOL SUCC 50MG EXT REL TAB PO STA (16:27)
[2022-07-08] MEDS: oxyCODONE HCL IR 5 MG TAB (IMMEDIATE RELEASE) PO SCH ×3 (17:18→20:31)
[2022-07-08] MEDS: SEVELAMER HCL 800 MG TABLET PO SCH (17:18)
[2022-07-08] MEDS: INSULIN ASPART PER UNIT SC SCH ×2 (17:26→20:37)
[2022-07-08] MEDS ORDERED: diphenhydrAMINE Capsule 25 MG CAP PO PRN (18:24)
[2022-07-08] MEDS: amLODIPine BESYLATE 5 MG TAB PO SCH (19:52)
[2022-07-08] MEDS: METOPROLOL SUCC 50MG EXT REL TAB PO SCH (19:52)
[2022-07-08] MEDS: TORSEMIDE 100 MG TAB PO SCH (19:52)
[2022-07-08] MEDS: lisinopril 40 MG TAB PO SCH (19:53)
[2022-07-08] MEDS: hydrALAZINE HCL 25 MG TAB PO SCH (19:53)
[2022-07-08] MEDS: ATORVASTATIN 40 MG TAB PO SCH (20:32)
[2022-07-08] MEDS: HEPARIN SOD 5,000 UNIT/0.5 ML VIAL SQ SCH (20:32)
[2022-07-08] MEDS: traZODone HCL 100 MG TAB PO SCH (20:32)
[2022-07-08] MEDS ORDERED: B COMPLEX VITAMIN C FOLIC ACID 0.8 MG PO SCH (21:00)
[2022-07-09] MEDS ORDERED: hydrALAZINE HCL 20 MG/ML VIAL IV STA (04:35)
[2022-07-09] MEDS ORDERED: SODIUM CHLORIDE 0.9% 1000ML 1,000 ML IV PRN (07:49)
[2022-07-09 07:51] LABS: Basophils # (auto) 0.08 K/uL (0-0.2); Eosinophils # (auto) 0.64 K/uL (0-0.50); Eosinophils % (auto) 7.7 %; Hematocrit (blood only) 33.5 % (42.0-52.0); Hemoglobin 11.2 g/dl (14.0-18.0); Immature Granulocytes # (auto) 0.04 K/uL (0.01-0.20); Immature Granulocytes % (auto) 0.5 %; Lymphocytes # (auto) 0.65 K/uL (1.2-3.4); Lymphocytes % (auto) 7.9 %; Mean Corpuscular Hemoglobin 30.4 pg (25.0-34.0); Mean Corpuscular Hgb Conc 33.4 g/dL (32.0-36.0); Mean Corpuscular Volume 90.8 fL (80.0-100.0); Mean Platelet Volume 11.6 fL (9.4-12.4); Monocytes # (auto) 0.36 K/uL (0.11-0.59); Monocytes % (auto) 4.3 %; Neutrophils # (auto) 6.51 K/uL (1.40-6.50); Neutrophils % (auto) 78.6 %; Platelet Count 144 K/uL (130-400); RDW Coefficient of Variation 16.5 % (11.5-14.5); RDW Standard Deviation 53.7 fL (36.4-46.3); Red Blood Count 3.69 M/uL (4.70-6.10); White Blood Count 8.28 K/ul (4.8-10.8)
[2022-07-09] MEDS ORDERED: HEPARIN SOD (PORCINE) 1000 UNIT/ML IV SCH (08:00)
[2022-07-09] MEDS ORDERED: LANTUS PER UNIT CHARGE SQ ONE (08:00)
[2022-07-09] MEDS: SEVELAMER HCL 800 MG TABLET PO SCH ×4 (08:03→17:50)
[2022-07-09] MEDS: METOPROLOL SUCC 50MG EXT REL TAB PO SCH ×2 (08:03→21:35)
[2022-07-09] MEDS: HEPARIN SOD 5,000 UNIT/0.5 ML VIAL SQ SCH ×2 (08:04→21:36)
[2022-07-09] MEDS: hydrALAZINE HCL 25 MG TAB PO SCH ×2 (08:05→21:36)
[2022-07-09] MEDS: INSULIN ASPART PER UNIT SC SCH ×4 (08:05→21:32)
[2022-07-09 08:13] LABS: BUN Creatinine Ratio 4.5 (10-20); Calcium 8.8 mg/dl (8.5-10.1); Creatinine Clr Calc Pharmacy 12.8 ml/min; Est GFR (African American) 7.6 ml/min; Est GFR (Non-African American) 6.6 ml/min; Magnesium 2.4 mg/dl (1.7-2.4); Phosphorus 8.8 mg/dl (2.5-4.9); Potassium 6.8 mmol/L (3.5-5.1)
[2022-07-09] MEDS: oxyCODONE HCL IR 5 MG TAB (IMMEDIATE RELEASE) PO SCH ×4 (08:17→21:35)
--- NOTE | 2022-07-09 08:40 | Nephrology Progress Note ---
Date of Service July 09, 2022 Assessment & Plan (1) Hyperkalemia: Plan: will run first shift , 1 hr on 1K bath and 2 hrs on 2K recheck BMP ordered for 4h post tx continue low K diet -recheck K at start of tx STAT b/c does not make sense clinically to have this increase; suspect drawn from peripheral IV ?cause here (2) ESRD (end stage renal disease) on dialysis: Plan: ESRD on MWF HD; shortened tx 07/08 >repeat HD today 3.5 hrs goal 3L UF -cont 1.5 L fluid limit given volume overload (3) Hypertensive urgency: Plan: needs more dialysis to help manage this continue home meds >> did d/w hospitalist team to give meds he missed this am now continue prn IV hydralazine, IV metoprolol Admission and Anticipated Discharge Date Admission Date: July 08, 2022 Physical Exam Constitutional: well developed, well nourished, + obese and cooperative; no acute distress Eyes: EOM intact bilaterally ENMT: Ears: no external ear abnormality Nose: no external nose abnormality Mouth: + dry oral mucous membranes Neck: no nuchal rigidity Respiratory: normal respiratory effort Auscultation: + diminished lung sounds and + crackles (diminished bibasilar) Cardiovascular: Rate/Rhythm: regular rate and regular rhythm Heart Sounds: + murmur Extremities: + AV fistula (+ t/b); no edema Gastrointestinal (Abdomen): Inspection/Auscultation: normal bowel sounds Percussion/Palpation: abdomen soft; abdomen nontender Musculoskeletal: Extremities: strength 5/5 throughout Skin: no rashes, warm and dry Psychiatric: Orientation: alert and oriented x 3 Results & Data ([facility]) Vital Signs (Past 12 Hours) Vital Signs Temp Pulse Pulse Resp BP Pulse Ox O2 Del Method 07/09/22 07:51 36.9 C 78 19 166/75 H 94 Oxymask 07/09/22 03:58 36.6 C 78 18 193/74 H 92 Oxymask 07/08/22 23:11 36.6 C 73 20 173/92 H 90 Oxymask 07/08/22 22:09 81 07/08/22 22:00 36.7 C 81 17 169/95 H 93 Oxymask O2 Flow Rate 07/09/22 07:51 6 07/09/22 03:58 6.0 07/08/22:11 6.0 07/08/22 22:09 07/08/22 22:00 6 Laboratory Results 07/09/22 06:56 07/09/22 06:56
[2022-07-09 09:23] LABS: Estimated Average Glucose 128 mg/dl; Hemoglobin A1C 6.1 % (4.5-5.6)
[2022-07-09 10:01] LABS: BUN Creatinine Ratio 4.8 (10-20); Calcium 8.8 mg/dl (8.5-10.1); Creatinine Clr Calc Pharmacy 12.6 ml/min; Est GFR (African American) 7.4 ml/min; Est GFR (Non-African American) 6.4 ml/min; Potassium 5.2 mmol/L (3.5-5.1)
--- NOTE | 2022-07-09 10:18 | Pharmacy Report ---
Pharmacy Glycemic Short Note 2 - Date of Service July 09, 2022 - Glycemic Short BSG Results (Last 24 hours): 07/08/22 07/08/22 07/08/22 11:16 16:14 20:00 Glucose POC Glucose 273 H 291 H 161 H 07/09/22 07/09/22 07/09/22 06:56 07:33 09:19 Glucose 293 H 307 H* POC Glucose 281 H OUTPATIENT ANTIDIABETIC REGIMEN: * Basaglar 50 units SC qAM * Novolog 16 units SC AC * Patient's A1c = 6.1% today. * However, this result is likely somewhat unreliable in ESRD patients d/t interactions between the A1c analyzing technique and high levels of urea in ESRD, reduced RBC life span, iron deficiency anemia, and EPO administration. HbA1c > 7.5% in ESRD patient may overestimate the extent of hyperglycemia in ESRD patients. ASSESSMENT: * RB is a 42 year old male with T1DM and ESRD requiring hemodialysis MWF * Hyperglycemia noted on admission (BSG > 400 mg/dL). However, patient presented to ED due to hypoglycemia w/ multiple falls at home. * Patient has not been following up with outpatient MTM, although is now reportedly interested in possible insulin pump * BSGs trended down nicely yesterday with bolus insulin only. However, fasting BSG of 281 mg/dL this morning, which is likely related to lack of basal insulin yesterday * Will be conservative with initial insulin dosing in light of recent hypoglycemia and based on prior inpatient glycemic data (2020) * BSG trended down after dialysis (71 mg/dL), will loosen carb coverage and refrain from any more basal today PLAN FOR INPATIENT GLYCEMIC CONTROL: * Basal insulin * Lantus 20 units SQ x 1 this morning * Reassess in AM * Bolus insulin * NovoLog per scale ACHS or Q6hrs while NPO * Goal Range: Low 120 mg/dL - High 150 mg/dL * Correction Factor: 25 mg/dL/unit * Nutritional / Prandial insulin per carb ratio of 1 unit per 10 grams CHO consumed
[2022-07-09] MEDS: HEPARIN SOD (PORCINE) 1000 UNIT/ML IV SCH ×2 (11:04→11:05)
--- NOTE | 2022-07-09 14:48 | Hospitalist Progress Note ---
Date of Service July 09, 2022 Assessment & Plan (1) Hypoglycemia: Plan: 42 y/o male with a complicated PMH including DM1 and ESRD on HD presented to the ED today for recurrent falls and hypoglycemia. Pt reports at least five falls in the last week, with most recent fall attributed to hypoglycemic episode this morning. Pt reports his blood sugars have been labile to he has been self- titrating his insulin to try to adjust for this. He is currently using 50 units Lantus in the AM and 16 units of Novolog with meals. It is unclear how compliant he is with a diabetic renal diet as he reports that he is a picky eater. Initially pt declined admission, but ultimately decided that he would agree to be admitted at least overnight to attempt to address his blood sugars. - Admit to PCU - Hold basal insulin for now, use insulin sliding scale and monitor - consult pharmacy for assistance with glycemic management. Will also consult diabetes educator. Discussed with pt the importance of ongoing follow-up outpatient. May need to adjust outpatient insulin regimen prior to discharge. - Encourage compliance with diabetic diet -Blood sugar is more than 300 before he went for dialysis and after coming back he went down to 70s -Appreciate diabetes educator recommendation to the patient's -We will monitor in the telemetry unit (2) Volume overload: Plan: Pt is due for HD today so this is likely etiology - Consult nephrology - spoke with Dr. Thomson who will help arrange for HD - Resume outpatient torsemide -Has had dialysis and next dialysis tomorrow - (3) Recurrent falls: Plan: - PT/OT evals-refusing PT and OT evaluation - Fall precautions -Will cancel (4) Hyperphosphatemia: Plan: Ongoing issue per pt - HD today - Appreciate nephro input (5) Chronic respiratory failure with hypoxia: Plan: Pt has been noncompliant with home O2 - was previously using 3 L continuous with up to 5L with activity but self-discontinued - Continue O2 while admitted -We will get a 2 steps O2 saturation test prior to discharge (6) End stage renal disease: Plan: Continue hemodialysis (7) DM type 1 (diabetes mellitus, type 1): Plan: Diabetic diet and education Glycemic control as per pharmacy (8) NICM (nonischemic cardiomyopathy): (9) Hypertension: (10) Dyslipidemia: Plan Continue other home medications as appropriate Pt seen and reviewed with collaborating physician, Dr. Sanchez. Plan of care discussed and as outlined above Code Status: Full Code DVT Prophylaxis: subQ heparin Admission and Anticipated Discharge Date Admission Date: July 08, 2022 Subjective 07/09/2022 The patient was seen and examined in telemetry unit She is a status post dialysis His blood sugar is very unstable and he feels hypoglycemia the cause of his recent falls at home He denies any significant symptoms but does not feel good following dialysis Refused to have PT and OT Review of Systems Review of Systems: All systems reviewed and are unremarkable except as noted below Musculoskeletal: No acute arthritis involving any of the joint Physical Exam Physical Exam: Lying in bed comfortably Constitutional: well developed, well nourished, + ill appearing and + obese Eyes: PERRL, conjunctivae normal, anicteric sclerae ENMT: external ear and nose normal, oropharynx normal Neck: trachea midline, no thyromegaly Respiratory: no respiratory distress Auscultation: + diminished lung sounds and + crackles (Bibasilar crackles) Cardiovascular: Rate/Rhythm: regular rate and regular rhythm; not tachycardic Heart Sounds: normal S1 and normal S2; no murmur Extremities: + edema (Trace edema bilaterally) Gastrointestinal (Abdomen): Inspection/Auscultation: + abdomen distended and normal bowel sounds Percussion/Palpation: abdomen soft; abdomen nontender Musculoskeletal: No acute arthritis involving any joint Neurologic: Alert, awake and oriented x3. No focal sensory or motor deficit appreciated Lymphatic: no cervical or axillary lymphadenopathy Results & Data Results & Data ([facility]) Vital Signs (Past 12 Hours) Vital Signs Temp Pulse Pulse Pulse Resp BP BP 07/09/22 12:40 36.6 C 73 19 154/82 H 07/09/22 12:20 36.5 C 73 172/95 H 07/09/22 12:00 75 155/92 H 07/09/22 11:30 64 163/80 H 07/09/22 11:00 71 109/77 07/09/22 10:30 75 125/63 07/09/22 10:00 76 134/65 07/09/22 09:30 76 163/86 H 07/09/22 09:05 36.5 C 78 07/09/22 08:00 73 07/09/22 08:00 07/09/22 07:51 36.9 C 78 19 166/75 H 07/09/22 03:58 36.6 C 78 18 193/74 H Pulse Ox O2 Del Method O2 Flow Rate 07/09/22 12:40 94 Oxymask 6 07/09/22 12:20 07/09/22 12:00 07/09/22 11:30 07/09/22 11:00 07/09/22 10:30 07/09/22 10:00 07/09/22 09:30 07/09/22 09:05 07/09/22 08:00 07/09/22 08:00 Oxymask 6 07/09/22 07:51 94 Oxymask 6 07/09/22 03:58 92 Oxymask 6.0 Laboratory Results Short CBC 07/09/22 Range/Units 06:56 WBC 8.28 (4.8-10.8) K/ul Hgb 11.2 L (14.0-18.0) g/dl Hct 33.5 L (42.0-52.0) % Plt Count 144 (130-400) K/uL BMP 07/09/22 07/09/22 07/09/22 06:56 08:51 09:19 Sodium 134 L 136 Potassium 6.8 H* D 5.6 H 5.2 H Chloride 97 L 98 Carbon Dioxide 22 21 BUN 41 H 44 H Creatinine 9.02 H* D 9.19 H* Glucose 293 H 307 H* Calcium 8.8 8.8 Medications Administered Current Inpatient Medications Amlodipine Besylate (Amlodipine Besylate 5 Mg Tab) 10 mg PO HS CHENG Stop: 08/07/22 20:59 Last Admin: 07/08/22 19:52 Dose: 10 mg Atorvastatin Calcium (Atorvastatin 40 Mg Tab) 40 mg PO HS CHENG Stop: 08/07/22 20:59 Last Admin: 07/08/22 20:32 Dose: 40 mg Dextrose (Dextrose 50% 50 Ml Syringe) 25 - 50 ml IV UD PRN; Protocol PRN Reason: Hypoglycemia Protocol Stop: 08/07/22 15:54 Diphenhydramine HCl (Diphenhydramine Capsule 25 Mg Cap) 25 mg PO DAILY PRN PRN Reason: itching Stop: 08/07/22 18:23 Last Admin: 07/08/22 20:31 Dose: 25 mg Glucagon (Glucagon For Inj 1 Mg Vial) 1 mg SQ UD PRN; Protocol PRN Reason: Hypoglycemia Protocol Stop: 08/07/22 15:54 Glucose (Glucose 40% Gel 15 Gm Tube) 15 - 30 gm PO UD PRN; Protocol PRN Reason: Hypoglycemia Protocol Stop: 08/07/22 15:54 Glucose (Glucose 10 Tab/Tube) 4 - 8 tab PO UD PRN; Protocol PRN Reason: Hypoglycemia Treatment Stop: 08/07/22 15:54 Heparin Sodium (Porcine) (Heparin Sod 5,000 Unit/0.5 Ml Vial) 5,000 units SQ Q12 [facility]ENG Stop: 08/07/22 20:59 Last Admin: 07/09/22 08:04 Dose: 5,000 units Heparin Sodium (Porcine) (Heparin Sod (Porcine) 1000 Unit/Ml) 1,000 units IV TODAY@0800 [facility] Stop: 07/09/22 23:59 Last Admin: 07/09/22 11:04 Dose: Not Given Heparin Sodium (Porcine) (Heparin Sod (Porcine) 1000 Unit/Ml) 400 units IV TODAY@0800,0900,1000 [facility] [place] Stop: 07/09/22 23:59 Last Admin: 07/09/22 11:05 Dose: Not Given Hydralazine HCl (Hydralazine Hcl 25 Mg Tab) 25 mg PO BID CHENG Stop: 08/07/22 20:59 Last Admin: 07/09/22 08:05 Dose: 25 mg Insulin Aspart (Insulin Aspart Per Unit) 0 units SC ACHS CHENG Stop: 08/07/22 16:29 Last Admin: 07/09/22 12:57 Dose: 3 units Lidocaine/Prilocaine (Lidocaine/Prilocaine 2.5% Ea Crm) 1 each EXT MoWeFr@0900 [facility] [place] Stop: 08/09/22 08:59 Lisinopril (Lisinopril 40 Mg Tab) 40 mg PO HS [facility] [place] Stop: 08/07/22 20:59 Last Admin: 07/08/22 19:53 Dose: 40 mg Metoprolol Succinate (Metoprolol Succ 50mg Ext Rel Tab) 50 mg PO BID [facility] [place] Stop: 08/07/22 20:59 Last Admin: 07/09/22 08:03 Dose: 50 mg Miscellaneous (Carbohydrates For Hypoglycemia ) 15 - 30 gm PO UD PRN PRN Reason: Hypoglycemia Protocol Stop: 08/07/22 15:54 Miscellaneous Information (Pharmacy Glycemic Mgmt Consult) 1 each N/A UD PRN PRN Reason: Consult Stop: 08/07/22 15:54 Oxycodone HCl (Oxycodone Hcl Ir 5 Mg Tab (Immediate Release)) 10 mg PO QID [facility]ENG Stop: 07/22/22 15:54 Last Admin: 07/09/22 12:57 Dose: 10 mg Sevelamer HCl (Sevelamer Hcl 800 Mg Tablet) 1,600 mg PO AC CHENG Stop: 08/07/22 16:29 Last Admin: 07/09/22 12:58 Dose: 1,600 mg Torsemide (Torsemide 100 Mg Tab) 100 mg PO HS CHENG Stop: 08/07/22 20:59 Last Admin: 07/08/22 19:52 Dose: 100 mg Trazodone HCl (Trazodone Hcl 100 Mg Tab) 100 mg PO HS CHENG Stop: 08/07/22 20:59 Last Admin: 07/08/22 20:32 Dose: 100 mg
--- NOTE | 2022-07-09 17:02 | Dialysis Progress Note ---
Date of Service July 09, 2022 Assessment & Plan (1) Hyperkalemia: Plan: recheck K drawn also from periph line >> stat K at start of HD was 5.2; ran on 2 k bath (2) ESRD (end stage renal disease) on dialysis: Plan: for HD today, extra tx to manage voluem status and K goal was 3L off which he tolerated next tx tomorrow (3) Hypertensive urgency: Plan: SBP improving w/ more dialysis; cont current meds Admission and Anticipated Discharge Date Admission Date: July 08, 2022 Subjective no interval events. denies worse sob, denies n/v; feels BG unchanged; K this am quite high >> drawn from periph IV though Review of Systems Review of Systems: All systems reviewed & are unremarkable except as noted in Subjective Physical Exam Constitutional: well developed and well nourished Eyes: EOM intact bilaterally ENMT: Ears: no external ear abnormality Nose: no external nose abnormality Mouth: + dry oral mucous membranes Neck: no nuchal rigidity Respiratory: normal respiratory effort Auscultation: + diminished lung soun ds Cardiovascular: Rate/Rhythm: regular rate and regular rhythm Extremities: + AV fistula; no edema Gastrointestinal (Abdomen): Inspection/Auscultation: normal bowel sounds Percussion/Palpation: abdomen soft; abdomen nontender Musculoskeletal: Extremities: strength 5/5 throughout Skin: no rashes, warm and dry Neurologic: morocho, fluent speech, no tremor Results & Data ([facility]) Vital Signs (Past 12 Hours) Vital Signs Temp Pulse Pulse Pulse Resp BP BP 07/09/22 16:09 36.9 C 73 20 157/88 H 07/09/22 16:00 78 07/09/22 12:40 36.6 C 73 19 154/82 H 07/09/22 12:20 36.5 C 73 172/95 H 07/09/22 12:00 75 155/92 H 07/09/22 11:30 64 163/80 H 07/09/22 11:00 71 109/77 07/09/22 10:30 75 125/63 07/09/22 10:00 76 134/65 07/09/22 09:30 76 163/86 H 07/09/22 09:05 36.5 C 78 07/09/22 08:00 73 07/09/22 08:00 07/09/22 07:51 36.9 C 78 19 166/75 H Pulse Ox O2 Del Method O2 Flow Rate 07/09/22 16:09 92 Room Air 07/09/22 16:00 07/09/22 12:40 94 Oxymask 6 07/09/22 12:20 07/09/22 12:00 07/09/22 11:30 07/09/22 11:00 07/09/22 10:30 07/09/22 10:00 07/09/22 09:30 07/09/22 09:05 07/09/22 08:00 07/09/22 08:00 Oxymask 6 07/09/22 07:51 94 Oxymask 6 Laboratory Results 07/09/22 06:56 07/09/22 09:19
[2022-07-09] MEDS: amLODIPine BESYLATE 5 MG TAB PO SCH (21:35)
[2022-07-09] MEDS: lisinopril 40 MG TAB PO SCH (21:35)
[2022-07-09] MEDS: traZODone HCL 100 MG TAB PO SCH (21:35)
[2022-07-09] MEDS: TORSEMIDE 100 MG TAB PO SCH (21:35)
[2022-07-09] MEDS: ATORVASTATIN 40 MG TAB PO SCH (21:35)
[2022-07-10 07:37] LABS: BUN Creatinine Ratio 6.2 (10-20); Calcium 8.7 mg/dl (8.5-10.1); Creatinine Clr Calc Pharmacy 15.2 ml/min; Est GFR (African American) 9.4 ml/min; Est GFR (Non-African American) 8.1 ml/min; Magnesium 2.4 mg/dl (1.7-2.4); Phosphorus 8.6 mg/dl (2.5-4.9); Potassium 5.7 mmol/L (3.5-5.1)
[2022-07-10] MEDS: METOPROLOL SUCC 50MG EXT REL TAB PO SCH ×2 (07:52→21:00)
[2022-07-10] MEDS: hydrALAZINE HCL 25 MG TAB PO SCH ×2 (07:53→21:00)
[2022-07-10] MEDS: SEVELAMER HCL 800 MG TABLET PO SCH ×3 (07:53→16:51)
[2022-07-10] MEDS: HEPARIN SOD 5,000 UNIT/0.5 ML VIAL SQ SCH ×2 (07:53→20:58)
[2022-07-10] MEDS: oxyCODONE HCL IR 5 MG TAB (IMMEDIATE RELEASE) PO SCH ×4 (07:55→20:59)
[2022-07-10] MEDS ORDERED: HEPARIN SOD (PORCINE) 1000 UNIT/ML IV ONE (07:58)
[2022-07-10] MEDS ORDERED: SODIUM CHLORIDE 0.9% 1000ML 1,000 ML IV PRN (07:58)
[2022-07-10] MEDS: INSULIN ASPART PER UNIT SC SCH ×4 (08:56→21:09)
[2022-07-10] MEDS ORDERED: LIDOCAINE/PRILOCAINE 2.5% EA CRM EXT SCH (09:00)
[2022-07-10] MEDS ORDERED: LANTUS PER UNIT CHARGE SQ SCH (09:00)
[2022-07-10] MEDS: HEPARIN SOD (PORCINE) 1000 UNIT/ML IV SCH ×2 (11:05→12:03)
--- NOTE | 2022-07-10 14:22 | Pharmacy Report ---
Pharmacy Glycemic Short Note 2 - Date of Service July 10, 2022 - Glycemic Short BSG Results (Last 24 hours): 07/09/22 07/09/22 07/10/22 16:21 20:03 06:18 Glucose 410 H* POC Glucose 125 H 250 H 07/10/22 07/10/22 07/10/22 07:32 07:33 13:56 Glucose POC Glucose 415 H* 396 H* 55 L* OUTPATIENT ANTIDIABETIC REGIMEN: * Basaglar 50 units SC qAM * Novolog 16 units SC AC * Patient's A1c = 6.1% today. * However, this result is likely somewhat unreliable in ESRD patients d/t interactions between the A1c analyzing technique and high levels of urea in ESRD, reduced RBC life span, iron deficiency anemia, and EPO administration. HbA1c > 7.5% in ESRD patient may overestimate the extent of hyperglycemia in ESRD patients. ASSESSMENT: 07/10/22: * Patient received total of 40 units of insulin yesterday; 20 units basal and 20 units bolus. * BSGs yesterday were [id number] mg/dl. Fasting BSG today was 410 mg/dl. * Novolog parameters were tightened slightly at breakfast and Lantus dose in creased to 30 units. * Patient received 19 units of insulin at breakfast and went hemodialysis, this ended up causing BSG to drop to 55 mg/dl before lunch. * Novolog parameters loosened at lunch. 07/09/22: * RB is a 42 year old male with T1DM and ESRD requiring hemodialysis MWF * Hyperglycemia noted on admission (BSG > 400 mg/dL). However, patient presented to ED due to hypoglycemia w/ multiple falls at home. * Patient has not been following up with outpatient MTM, although is now reportedly interested in possible insulin pump * BSGs trended down nicely yesterday with bolus insulin only. However, fasting BSG of 281 mg/dL this morning, which is likely related to lack of basal insulin yesterday * Will be conservative with initial insulin dosing in light of recent hypoglycemia and based on prior inpatient glycemic data (2020) * BSG trended down after dialysis (71 mg/dL), will loosen carb coverage and refrain from any more basal today PLAN FOR INPATIENT GLYCEMIC CONTROL: * Basal insulin * Lantus 30 units SQ QAM * Bolus insulin * NovoLog per scale ACHS or Q6hrs while NPO * Goal Range: Low 120 mg/dL - High 150 mg/dL * Correction Factor: 25 mg/dL/unit * Nutritional / Prandial insulin per carb ratio of 1 unit per 10 grams CHO consumed
--- NOTE | 2022-07-10 17:26 | Hospitalist Progress Note ---
Date of Service July 10, 2022 Assessment & Plan (1) Hypoglycemia: Plan: 42 y/o male with a complicated PMH including DM1 and ESRD on HD presented to the ED today for recurrent falls and hypoglycemia. Pt reports at least five falls in the last week, with most recent fall attributed to hypoglycemic episode this morning. Pt reports his blood sugars have been labile to he has been self- titrating his insulin to try to adjust for this. He is currently using 50 units Lantus in the AM and 16 units of Novolog with meals. It is unclear how compliant he is with a diabetic renal diet as he reports that he is a picky eater. Initially pt declined admission, but ultimately decided that he would agree to be admitted at least overnight to attempt to address his blood sugars. - Admit to PCU - Hold basal insulin for now, use insulin sliding scale and monitor - consult pharmacy for assistance with glycemic management. Will also consult assistant health educator. Discussed with pt the importance of ongoing follow-up outpatient. May need to adjust outpatient insulin regimen prior to discharge. - Encourage compliance with diabetic diet -Blood sugar is more than 300 before he went for dialysis and after coming back he went down to 70s -Appreciate assistant health educator recommendation to the patient's -We will monitor in the telemetry unit -Still having hypoglycemic episode even after reducing the doses of insulin -We will see hop farm worker tomorrow at around 2 -We will be discharged tomorrow at around 9 or 10 in the morning (2) Volume overload: Plan: Pt is due for HD today so this is likely etiology - Consult nephrology - spoke with Dr. Thomson who will help arrange for HD - Resume outpatient torsemide -Has had dialysis and next dialysis tomorrow -We will continue dialysis as an outpatient - (3) Recurrent falls: Plan: - PT/OT evals-refusing PT and OT evaluation - Fall precautions -Will cancel -Refused to have any PT and OT evaluation (4) Hyperphosphatemia: Plan: Ongoing issue per pt - HD today - Appreciate nephro input (5) Chronic respiratory failure with hypoxia: Plan: Pt has been noncompliant with home O2 - was previously using 3 L continuous with up to 5L with activity but self-discontinued - Continue O2 while admitted -We will get a 2 steps O2 saturation test prior to discharge -We will get to a stable O2 saturation test prior to discharge (6) End stage renal disease: Plan: Continue hemodialysis (7) DM type 1 (diabetes mellitus, type 1): Plan: Diabetic diet and education Glycemic control as per pharmacy (8) NICM (nonischemic cardiomyopathy): (9) Hypertension: (10) Dyslipidemia: Plan Continue other home medications as appropriate Pt seen and reviewed with collaborating physician, Dr. Sanchez. Plan of care discussed and as outlined above Code Status: Full Code DVT Prophylaxis: subQ heparin Admission and Anticipated Discharge Date Admission Date: July 08, 2022 Subjective 07/09/2022 The patient was seen and examined in telemetry unit She is a status post dialysis His blood sugar is very unstable and he feels hypoglycemia the cause of his recent falls at home He denies any significant symptoms but does not feel good following dialysis Refused to have PT and OT 07/10/2022 The patient was seen and examined in telemetry unit following dialysis Feels weak and tired Blood pressure noted to be low at 73 He has an appointment with hop farm worker tomorrow Denies any other significant symptoms Review of Systems Review of Systems: All systems reviewed and are unremarkable except as noted below Physical Exam Physical Exam: Lying in bed comfortably Constitutional: well developed, well nourished, + ill appearing and + obese Eyes: PERRL, conjunctivae normal, anicteric sclerae ENMT: external ear and nose normal, oropharynx normal Neck: trachea midline, no thyromegaly Respiratory: no respiratory distress Auscultation: + diminished lung sounds and + crackles (Bibasilar crackles) Cardiovascular: Rate/Rhythm: regular rate and regular rhythm; not tachycardic Heart Sounds: normal S1 and normal S2; no murmur Extremities: + edema (Trace edema bilaterally) Gastrointestinal (Abdomen): Inspection/Auscultation: + abdomen distended and normal bowel sounds Percussion/Palpation: abdomen soft; abdomen nontender Neurologic: Alert, awake and oriented x3 Lymphatic: no cervical or axillary lymphadenopathy Results & Data Results & Data ([facility]) Vital Signs (Past 12 Hours) Vital Signs Temp Pulse Pulse Resp BP BP Pulse Ox 07/10/22 16:33 36.7 C 72 18 143/74 H 97 07/10/22 12:47 37.1 C 68 135/77 07/10/22 12:30 75 122/65 07/10/22 12:00 68 135/70 07/10/22 11:30 70 151/84 H 07/10/22 11:00 67 134/67 07/10/22 10:30 72 124/58 L 07/10/22 10:00 72 141/70 H 07/10/22 09:30 73 155/76 H 07/10/22 09:00 77 165/110 H 07/10/22 08:56 77 168/90 H 07/10/22 08:46 36.6 C 77 07/10/22 07:37 36.2 C L 81 18 194/86 H 97 O2 Del Method O2 Flow Rate 07/10/22 16:33 Oxymask 6 07/10/22 12:47 07/10/22 12:30 07/10/22 12:00 07/10/22 11:30 07/10/22 11:00 07/10/22 10:30 07/10/22 10:00 07/10/22 09:30 07/10/22 09:00 07/10/22 08:56 07/10/22 08:46 07/10/22 07:37 Oxymask 3 Laboratory Results [facility] 07/10/22 06:18 Sodium 132 L Potassium 5.7 H Chloride 96 L Carbon Dioxide 19 L BUN 47 H Creatinine 7.56 H* D Glucose 410 H* Calcium 8.7 Medications Administered Current Inpatient Medications Amlodipine Besylate (Amlodipine Besylate 5 Mg Tab) 10 mg PO HS CHENG Stop: 08/07/22 20:59 Last Admin: 07/09/22 21:35 Dose: 10 mg Atorvastatin Calcium (Atorvastatin 40 Mg Tab) 40 mg PO HS CHENG Stop: 08/07/22 20:59 Last Admin: 07/09/22 21:35 Dose: 40 mg Dextrose (Dextrose 50% 50 Ml Syringe) 25 - 50 ml IV UD PRN; Protocol PRN Reason: Hypoglycemia Protocol Stop: 08/07/22 15:54 Diphenhydramine HCl (Diphenhydramine Capsule 25 Mg Cap) 25 mg PO DAILY PRN PRN Reason: itching Stop: 08/07/22 18:23 Last Admin: 07/08/22 20:31 Dose: 25 mg Glucagon (Glucagon For Inj 1 Mg Vial) 1 mg SQ UD PRN; Protocol PRN Reason: Hypoglycemia Protocol Stop: 08/07/22 15:54 Glucose (Glucose 40% Gel 15 Gm Tube) 15 - 30 gm PO UD PRN; Protocol PRN Reason: Hypoglycemia Protocol Stop: 08/07/22 15:54 Glucose (Glucose 10 Tab/Tube) 4 - 8 tab PO UD PRN; Protocol PRN Reason: Hypoglycemia Treatment Stop: 08/07/22 15:54 Heparin Sodium (Porcine) (Heparin Sod 5,000 Unit/0.5 Ml Vial) 5,000 units SQ Q12 [facility]ENG Stop: 08/07/22 20:59 Last Admin: 07/10/22 07:53 Dose: 5,000 units Hydralazine HCl (Hydralazine Hcl 25 Mg Tab) 25 mg PO BID [facility]ENG Stop: 08/07/22 20:59 Last Admin: 07/10/22 07:53 Dose: 25 mg Insulin Aspart (Insulin Aspart Per Unit) 0 units SC ACHS [facility]ENG Stop: 08/07/22 16:29 Last Admin: 07/10/22 16:50 Dose: 8 units Insulin Glargine (Lantus Per Unit Charge) 30 units SQ QAM [facility]ENG Stop: 08/09/22 08:59 Last Admin: 07/10/22 08:56 Dose: 30 units Lidocaine/Prilocaine (Lidocaine/Prilocaine 2.5% Ea Crm) 1 each EXT MoWeFr@0900 [facility] Stop: 08/09/22 08:59 Last Admin: 07/10/22 13:58 Dose: Not Given Lisinopril (Lisinopril 40 Mg Tab) 40 mg PO HS [facility] Stop: 08/07/22 20:59 Last Admin: 07/09/22 21:35 Dose: 40 mg Metoprolol Succinate (Metoprolol Succ 50mg Ext Rel Tab) 50 mg PO BID [facility]ENG Stop: 08/07/22 20:59 Last Admin: 07/10/22 07:52 Dose: 50 mg Miscellaneous (Carbohydrates For Hypoglycemia ) 15 - 30 gm PO UD PRN PRN Reason: Hypoglycemia Protocol Stop: 08/07/22 15:54 Miscellaneous Information (Pharmacy Glycemic Mgmt Consult) 1 each N/A UD PRN PRN Reason: Consult Stop: 08/07/22 15:54 Oxycodone HCl (Oxycodone Hcl Ir 5 Mg Tab (Immediate Release)) 10 mg PO QID [facility] Stop: 07/22/22 15:54 Last Admin: 07/10/22 16:51 Dose: 10 mg Sevelamer HCl (Sevelamer Hcl 800 Mg Tablet) 1,600 mg PO AC CHENG Stop: 08/07/22 16:29 Last Admin: 07/10/22 16:51 Dose: 1,600 mg Torsemide (Torsemide 100 Mg Tab) 100 mg PO HS CHENG Stop: 08/07/22 20:59 Last Admin: 07/09/22 21:35 Dose: 100 mg Trazodone HCl (Trazodone Hcl 100 Mg Tab) 100 mg PO HS [facility]ENG Stop: 08/07/22 20:59 Last Admin: 07/09/22 21:35 Dose: 100 mg
--- NOTE | 2022-07-10 17:46 | Dialysis Progress Note ---
Date of Service July 10, 2022 Assessment & Plan (1) Hyperkalemia: Plan: K elevation 07/09 was d/t drarw from peripheral line K elevation today d/t elevated BG (2) ESRD (end stage renal disease) on dialysis: Plan: for HD today goal is 4L off which he tolerated next tx on or as needs dictate (3) Hypertensive urgency: Plan: SBP improving w/ more dialysis; cont current meds Admission and Anticipated Discharge Date Admission Date: July 08, 2022 Subjective seen on dialysis at about 1215 pm; no c/o; BG remain labile; no worse sob; no n/v, no edema Review of Systems Review of Systems: All systems reviewed & are unremarkable except as noted in Subjective Physical Exam Constitutional: well developed and well nourished Eyes: EOM intact bilaterally ENMT: Ears: no external ear abnormality Nose: no external nose abnormality Mouth: + dry oral mucous membranes Neck: no nuchal rigidity Respiratory: normal respiratory effort Auscultation: + diminished lung sounds Cardiovascular: Rate/Rhythm: regular rate and regular rhythm Extremities: + AV fistula; no edema Gastrointestinal (Abdomen): Inspection/Auscultation: normal bowel sounds Percussion/Palpation: abdomen soft; abdomen nontender Musculoskeletal: Extremities: strength 5/5 throughout Skin: no rashes, warm and dry Results & Data ([facility]) Vital Signs (Past 12 Hours) Vital Signs Temp Pulse Pulse Resp BP BP Pulse Ox 07/10/22 16:33 36.7 C 72 18 143/74 H 97 07/10/22 12:47 37.1 C 68 135/77 07/10/22 12:30 75 122/65 07/10/22 12:00 68 135/70 07/10/22 11:30 70 151/84 H 07/10/22 11:00 67 134/67 07/10/22 10:30 72 124/58 L 07/10/22 10:00 72 141/70 H 07/10/22 09:30 73 155/76 H 07/10/22 09:00 77 165/110 H 07/10/22 08:56 77 168/90 H 07/10/22 08:46 36.6 C 77 07/10/22 07:37 36.2 C L 81 18 194/86 H 97 O2 Del Method O2 Flow Rate 07/10/22 16:33 Oxymask 6 07/10/22 12:47 07/10/22 12:30 07/10/22 12:00 07/10/22 11:30 07/10/22 11:00 07/10/22 10:30 07/10/22 10:00 07/10/22 09:30 07/10/22 09:00 07/10/22 08:56 07/10/22 08:46 07/10/22 07:37 Oxymask 3 Laboratory Results 07/09/22 06:56 07/10/22 06:18
[2022-07-10] MEDS: amLODIPine BESYLATE 5 MG TAB PO SCH (20:59)
[2022-07-10] MEDS: TORSEMIDE 100 MG TAB PO SCH (20:59)
[2022-07-10] MEDS: traZODone HCL 100 MG TAB PO SCH (21:00)
[2022-07-10] MEDS: ATORVASTATIN 40 MG TAB PO SCH (21:00)
[2022-07-10] MEDS: lisinopril 40 MG TAB PO SCH (21:00)
[2022-07-11] MEDS: oxyCODONE HCL IR 5 MG TAB (IMMEDIATE RELEASE) PO SCH (07:50)
[2022-07-11] MEDS: METOPROLOL SUCC 50MG EXT REL TAB PO SCH (07:50)
[2022-07-11] MEDS: SEVELAMER HCL 800 MG TABLET PO SCH (07:51)
[2022-07-11] MEDS: hydrALAZINE HCL 25 MG TAB PO SCH (07:51)
[2022-07-11] MEDS: HEPARIN SOD 5,000 UNIT/0.5 ML VIAL SQ SCH (07:51)
[2022-07-11 07:56] LABS: BUN Creatinine Ratio 5.1 (10-20); Calcium 9.3 mg/dl (8.5-10.1); Creatinine Clr Calc Pharmacy 19.7 ml/min; Est GFR (African American) 12.9 ml/min; Est GFR (Non-African American) 11.1 ml/min; Magnesium 2.3 mg/dl (1.7-2.4); Phosphorus 7.5 mg/dl (2.5-4.9); Potassium 4.3 mmol/L (3.5-5.1)
--- NOTE | 2022-07-11 08:17 | Hospitalist Progress Note ---
Date of Service July 11, 2022 Assessment & Plan (1) Hypoglycemia: Plan: 42 y/o male with a complicated PMH including DM1 and ESRD on HD presented to the ED today for recurrent falls and hypoglycemia. Pt reports at least five falls in the last week, with most recent fall attributed to hypoglycemic episode this morning. Pt reports his blood sugars have been labile to he has been self- titrating his insulin to try to adjust for this. He is currently using 50 units Lantus in the AM and 16 units of Novolog with meals. It is unclear how compliant he is with a diabetic renal diet as he reports that he is a picky eater. Initially pt declined admission, but ultimately decided that he would agree to be admitted at least overnight to attempt to address his blood sugars. - Admit to PCU - Hold basal insulin for now, use insulin sliding scale and monitor - consult pharmacy for assistance with glycemic management. Will also consult day haul youth supervisor. Discussed with pt the importance of ongoing follow-up outpatient. May need to adjust outpatient insulin regimen prior to discharge. - Encourage compliance with diabetic diet -Blood sugar is more than 300 before he went for dialysis and after coming back he went down to 70s -Appreciate day haul youth supervisor recommendation to the patient's -We will monitor in the telemetry unit -Still having hypoglycemic episode even after reducing the doses of insulin -We will see rn burn tomorrow at around 2 -We will be discharged tomorrow at around 9 or 10 in the morning -Blood sugar is maintained as of this morning and he has an appointment with the rn burn at 2 PM today at [place] -He threatened to sign out AMA if not discharged at 9 or after to keep the appointment -His blood sugar is maintained and he does not have any acute distress -We will have usual dialysis on schedule days as an outpatient (2) Volume overload: Plan: Pt is due for HD today so this is likely etiology - Consult nephrology - spoke with Dr. Thomson who will help arrange for HD - Resume outpatient torsemide -Has had dialysis and next dialysis tomorrow -We will continue dialysis as an outpatient -Strongly advised to continue with the outpatient dialysis and not to miss a day (3) Recurrent falls: Plan: - PT/OT evals-refusing PT and OT evaluation - Fall precautions -Will cancel -Refused to have any PT and OT evaluation -He has been ambulating without any difficulties and does not want to go for the PT and OT evaluation (4) Hyperphosphatemia: Plan: Ongoing issue per pt - HD today - Appreciate nephro input (5) Chronic respiratory failure with hypoxia: Plan: Pt has been noncompliant with home O2 - was previously using 3 L continuous with up to 5L with activity but self-discontinued - Continue O2 while admitted -We will get a 2 steps O2 saturation test prior to discharge -We will get to a stable O2 saturation test prior to discharge -He is refusing to a stable O2 saturation test and has oxygen at home (6) End stage renal disease: Plan: Continue hemodialysis (7) DM type 1 (diabetes mellitus, type 1): Plan: Diabetic diet and education Glycemic control as per pharmacy (8) NICM (nonischemic cardiomyopathy): (9) Hypertension: (10) Dyslipidemia: Plan Continue other home medications as appropriate Pt seen and reviewed with collaborating physician, Dr. Sanchez. Plan of care discussed and as outlined above Code Status: Full Code DVT Prophylaxis: subQ heparin Admission and Anticipated Discharge Date Admission Date: July 08, 2022 Subjective 07/09/2022 The patient was seen and examined in telemetry unit She is a status post dialysis His blood sugar is very unstable and he feels hypoglycemia the cause of his recent falls at home He denies any significant symptoms but does not feel good following dialysis Refused to have PT and OT 07/10/2022 The patient was seen and examined in telemetry unit following dialysis Feels weak and tired Blood pressure noted to be low at 73 He has an appointment with rn burn tomorrow Denies any other significant symptoms 07/11/2022 The patient was seen and examined in telemetry unit He has been feeling much better His oxygen delivery has decreased to 3 L and he uses oxygen as needed at home He did not go for to a step O2 saturation test this morning He will be discharged around 9 AM today Review of Systems Review of Systems: All systems reviewed and are unremarkable except as noted below Physical Exam Physical Exam: Lying in bed comfortably Constitutional: well developed, well nourished, + ill appearing and + obese Eyes: PERRL, conjunctivae normal, anicteric sclerae ENMT: external ear and nose normal, oropharynx normal Neck: trachea midline, no thyromegaly Respiratory: no respiratory distress Auscultation: + diminished lung sounds and + crackles (Bibasilar crackles) Cardiovascular: Rate/Rhythm: regular rate and regular rhythm; not tachycardic Heart Sounds: normal S1 and normal S2; no murmur Extremities: + edema (Trace edema bilaterally) Gastrointestinal (Abdomen): Inspection/Auscultation: + abdomen distended and normal bowel sounds Percussion/Palpation: abdomen soft; abdomen nontender Musculoskeletal: No acute arthritis involving any joint Neurologic: normal touch/pain/proprioception and moves all extremities; no focal motor deficits Alert, awake and oriented x3 Lymphatic: no cervical or axillary lymphadenopathy Results & Data Results & Data ([facility]) Vital Signs (Past 12 Hours) Vital Signs Temp Pulse Pulse Pulse Resp BP Pulse Ox 07/11/22 07:43 36.7 C 63 18 166/89 H 93 07/11/22 05:59 36.6 C 61 16 155/83 H 94 07/11/22 00:45 36.6 C 64 18 162/83 H 94 07/10/22 20:59 07/10/22 20:16 36.7 C 77 70 158/83 H 98 O2 Del Method O2 Flow Rate 07/11/22 07:43 Oxymask 3 07/11/22 05:59 Oxymask 4 07/11/22 00:45 Oxymask 4 07/10/22 20:59 Room Air, Oxymask 07/10/22 20:16 Oxymask 6 Laboratory Results [facility] 07/11/22 06:49 Sodium 138 Potassium 4.3 D Chloride 99 Carbon Dioxide 28 BUN 30 H Creatinine 5.83 H* D Glucose 55 L Calcium 9.3 Medications Administered Current Inpatient Medications Amlodipine Besylate (Amlodipine Besylate 5 Mg Tab) 10 mg PO HS CHENG Stop: 08/07/22 20:59 Last Admin: 07/10/22 20:59 Dose: 10 mg Atorvastatin Calcium (Atorvastatin 40 Mg Tab) 40 mg PO HS CHENG Stop: 08/07/22 20:59 Last Admin: 07/10/22 21:00 Dose: 40 mg Dextrose (Dextrose 50% 50 Ml Syringe) 25 - 50 ml IV UD PRN; Protocol PRN Reason: Hypoglycemia Protocol Stop: 08/07/22 15:54 Diphenhydramine HCl (Diphenhydramine Capsule 25 Mg Cap) 25 mg PO DAILY PRN PRN Reason: itching Stop: 08/07/22 18:23 Last Admin: 07/08/22 20:31 Dose: 25 mg Glucagon (Glucagon For Inj 1 Mg Vial) 1 mg SQ UD PRN; Protocol PRN Reason: Hypoglycemia Protocol Stop: 08/07/22 15:54 Glucose (Glucose 40% Gel 15 Gm Tube) 15 - 30 gm PO UD PRN; Protocol PRN Reason: Hypoglycemia Protocol Stop: 08/07/22 15:54 Glucose (Glucose 10 Tab/Tube) 4 - 8 tab PO UD PRN; Protocol PRN Reason: Hypoglycemia Treatment Stop: 08/07/22 15:54 Heparin Sodium (Porcine) (Heparin Sod 5,000 Unit/0.5 Ml Vial) 5,000 units SQ Q12 CHENG Stop: 08/07/22 20:59 Last Admin: 07/11/22 07:51 Dose: 5,000 units Hydralazine HCl (Hydralazine Hcl 25 Mg Tab) 25 mg PO BID CHENG Stop: 08/07/22 20:59 Last Admin: 07/11/22 07:51 Dose: 25 mg Insulin Aspart (Insulin Aspart Per Unit) 0 units SC ACHS CHENG Stop: 08/07/22 16:29 Last Admin: 07/10/22 21:09 Dose: Not Given Insulin Glargine (Lantus Per Unit Charge) 25 units SQ QAM [facility] Stop: 08/10/22 08:59 Lidocaine/Prilocaine (Lidocaine/Prilocaine 2.5% Ea Crm) 1 each EXT MoWeFr@0900 [facility] Stop: 08/09/22 08:59 Last Admin: 07/10/22 13:58 Dose: Not Given Lisinopril (Lisinopril 40 Mg Tab) 40 mg PO HS [facility] Stop: 08/07/22 20:59 Last Admin: 07/10/22 21:00 Dose: 40 mg Metoprolol Succinate (Metoprolol Succ 50mg Ext Rel Tab) 50 mg PO BID [facility] Stop: 08/07/22 20:59 Last Admin: 07/11/22 07:50 Dose: 50 mg Miscellaneous (Carbohydrates For Hypoglycemia ) 15 - 30 gm PO UD PRN PRN Reason: Hypoglycemia Protocol Stop: 08/07/22 15:54 Miscellaneous Information (Pharmacy Glycemic Mgmt Consult) 1 each N/A UD PRN PRN Reason: Consult Stop: 08/07/22 15:54 Oxycodone HCl (Oxycodone Hcl Ir 5 Mg Tab (Immediate Release)) 10 mg PO QID [facility]ENG Stop: 07/22/22 15:54 Last Admin: 07/11/22 07:50 Dose: 10 mg Sevelamer HCl (Sevelamer Hcl 800 Mg Tablet) 1,600 mg PO AC [facility] Stop: 08/07/22 16:29 Last Admin: 07/11/22 07:51 Dose: 1,600 mg Torsemide (Torsemide 100 Mg Tab) 100 mg PO HS [facility] Stop: 08/07/22 20:59 Last Admin: 07/10/22 20:59 Dose: 100 mg Trazodone HCl (Trazodone Hcl 100 Mg Tab) 100 mg PO HS [facility] Stop: 08/07/22 20:59 Last Admin: 07/10/22 21:00 Dose: 100 mg
[2022-07-11] MEDS: INSULIN ASPART PER UNIT SC SCH (08:46)
[2022-07-11] MEDS ORDERED: LANTUS PER UNIT CHARGE SQ SCH ×2 (09:00)
--- NOTE | 2022-07-11 17:23 | Discharge Summary ---
Date of Service July 11, 2022 Admission HPI Per Admitting Provider This is a 42 y/o male with a complicated PMH including Type 1 DM, ESRD on HD, chronic respiratory failure with hypoxia, anemia, dyslipidemia, and nonischemic cardiomyopathy who presented to the ED today after a fall at home. He states that for the last few days, he has had multiple episodes of "seizures" that he describes as "flapping around" but no loss of consciousness. This morning, when he got up his sugar was 57 - drank Pepsi and ate Zebra cakes to help but did not recheck it. When he attempted to go down the starts, he apparently lost his balance, slid down the stairs, and hit his head. He reports at least 5 falls in the last week. His blood sugars have been labile. He was referred to glycemic management to consider a pump but they were unable to reach the patient to schedule. He states he would be willing to see them. Currently, he may check his sugar up to seven times per day depending on how he feels. Currently, using Lantus 50 units in the morning (usually between 5 and 8 am), 16 unit Novolog with every meal - last insulin he took at home was 16 units at 5 pm yesterday. He titrates his own insulin. Last saw endocrinology > 20 years ago. Pt is on HD M// - last treatment was Fri of last week. He does still may a small amount of urine - no dysuria, no hematuria. Rare N/V but no abdominal pain, diarrhea. No fevers, chills, runny nose, cough. Has HAs but unsure if related to falls. Ongoing issue with TEE and SOB at rest. Previously on 3L of O2 at home but stopped this on his own. Had chest pain on the way to the hospital but it has since resolved. Outpatient records extensively reviewed - pt appears to have a history of similar symptoms in the past with hypoglycemia resulting in falls - has also been seen in the [facility], had a prior C-spine fracture. Admission Exam Per Admitting Provider Constitutional: well developed and well nourished; no acute distress Eyes: + anicteric sclerae Neck: trachea midline Respiratory: no respiratory distress and no labored breathing Auscultation: lungs clear to auscultation bilaterally Cardiovascular: Rate/Rhythm: regular rate and regular rhythm Extremities: no pedal edema Gastrointestinal (Abdomen): Inspection/Auscultation: normal bowel sounds; abdomen not distended Percussion/Palpation: abdomen soft; abdomen nontender Musculoskeletal: Head/Neck/Chest: + scalp tenderness (posterior where hit head with fall) Skin: no jaundice Neurologic: moves all extremities; no focal motor deficits and not confused Psychiatric: A+Ox3, euthymic affect Principal Diagnosis Hypoglycemic episodes, type 1 diabetes, end-stage renal disease on hemodialysis, chronic respiratory failure Discharge Exam Lying in bed comfortably Constitutional well developed, well nourished, + ill appearing and + obese Eyes PERRL, conjunctivae normal, anicteric sclerae ENMT external ear and nose normal, oropharynx normal Neck trachea midline, no thyromegaly Respiratory no respiratory distress Auscultation: + diminished lung sounds and + crackles (Bibasilar crackles) Cardiovascular Rate/Rhythm: regular rate and regular rhythm; not tachycardic Heart Sounds: normal S1 and normal S2; no murmur Extremities: + edema (Trace edema bilaterally) Gastrointestinal (Abdomen) Inspection/Auscultation: + abdomen distended and normal bowel sounds Percussion/Palpation: abdomen soft; abdomen nontender Neurologic normal touch/pain/proprioception and moves all extremities; no focal motor deficits Lymphatic no cervical or axillary lymphadenopathy Discharge Data Allergies Allergy/AdvReac Type Severity Reaction Status Date / Time No Known Allergies Allergy Unknown Verified 06/28/22 10:51 Consultations 07/08/22 09:32 ED Decision to Admit Stat 07/08/22 15:55 Consult Nephrology Routine Ordered Studies 07/08/22 06:39 CT cervical spine wo con Stat CT head/brain wo con Stat 07/08/22 06:44 CT abd pelvis wo con Stat CT chest diagnostic wo con Stat Hospital Course (1) Hypoglycemia: 42 y/o male with a complicated PMH including DM1 and ESRD on HD presented to the ED today for recurrent falls and hypoglycemia. Pt reports at least five falls in the last week, with most recent fall attributed to hypoglycemic episode this morning. Pt reports his blood sugars have been labile to he has been self-titrating his insulin to try to adjust for this. He is currently using 50 units Lantus in the AM and 16 units of Novolog with meals. It is unclear how compliant he is with a diabetic renal diet as he reports that he is a picky eater. Initially pt declined admission, but ultimately decided that he would agree to be admitted at least overnight to attempt to address his blood sugars. - Admit to PCU - Hold basal insulin for now, use insulin sliding scale and monitor - consult pharmacy for assistance with glycemic management. Will also consult environmental educator. Discussed with pt the importance of ongoing follow-up outpatient. May need to adjust outpatient insulin regimen prior to discharge. - Encourage compliance with diabetic diet -Blood sugar is more than 300 before he went for dialysis and after coming back he went down to 70s -Appreciate environmental educator recommendation to the patient's -We will monitor in the telemetry unit -Still having hypoglycemic episode even after reducing the doses of insulin -We will see electronic test technician tomorrow at around 2 -We will be discharged tomorrow at around 9 or 10 in the morning -Blood sugar is maintained as of this morning and he has an appointment with the electronic test technician at 2 PM today at [place] -He threatened to sign out AMA if not discharged at 9 or after to keep the appointment -His blood sugar is maintained and he does not have any acute distress -We will have usual dialysis on schedule days as an outpatient (2) Volume overload: Pt is due for HD today so this is likely etiology - Consult nephrology - spoke with Dr. Thomson who will help arrange for HD - Resume outpatient torsemide -Has had dialysis and next dialysis tomorrow -We will continue dialysis as an outpatient -Strongly advised to continue with the outpatient dialysis and not to miss a day (3) Recurrent falls: - PT/OT evals-refusing PT and OT evaluation - Fall precautions -Will cancel -Refused to have any PT and OT evaluation -He has been ambulating without any difficulties and does not want to go for the PT and OT evaluation (4) Hyperphosphatemia: Ongoing issue per pt - HD today - Appreciate nephro input (5) Chronic respiratory failure with hypoxia: Pt has been noncompliant with home O2 - was previously using 3 L continuous with up to 5L with activity but self-discontinued - Continue O2 while admitted -We will get a 2 steps O2 saturation test prior to discharge -We will get to a stable O2 saturation test prior to discharge -He is refusing to a stable O2 saturation test and has oxygen at home (6) End stage renal disease: Continue hemodialysis (7) DM type 1 (diabetes mellitus, type 1): Diabetic diet and education Glycemic control as per pharmacy (8) NICM (nonischemic cardiomyopathy): (9) Hypertension: (10) Dyslipidemia: Plan Continue other home medications as appropriate Pt seen and reviewed with collaborating physician, Dr. Sanchez. Plan of care discussed and as outlined above Code Status: Full Code DVT Prophylaxis: subQ heparin Total Time Total Time Spent Total Time Spent (In Minutes): 35 minutes Discharge Plan Discharge Items Patient Disposition: Home - Self-Care Reason For Visit: HYPOXIA, HYPOGLYCEMIA Discharge Diagnosis: Hypoglycemic episodes, type 1 diabetes, end-stage renal disease on hemodialysis, chronic respiratory failure Condition on Discharge: Good Activity: Resume your previous activity Non-emergency contact: Primary Care Provider Call non-emergency contact if: you have any medication questions and your symptoms worsen Follow-up/Referrals: Jaime Lovelace MD [Primary Care Provider] - (Date & Time 07/18/2022 11:20 AM Provider Jaime Lovelace MD Department Family Medicine [facility] ) Diet: Carb Count or DM1, Dialysis Renal and Low Sodium (2gm) Fluids: 1800ml (7 cups) Addtl Attending Provider Instructions: Please take precautions to avoid falls Strongly advised to keep appointment with the electronic test technician and follow diabetic diet Take your medications specially insulin as advised Check your blood sugar regularly Continue with outpatient hemodialysis Pending Studies at Discharge: No Stand-Alone Forms: My [employer] Smoking Cessation Medications and DC Order Prescriptions: Continued amlodipine 10 mg Tablet 10 mg PO HS lisinopril 40 mg Tablet 40 mg PO HS hydralazine 25 mg Tablet 25 mg PO BID Myrna-Bello 0.8 mg Tablet 1 tab PO HS atorvastatin 40 mg tablet 40 mg PO HS insulin aspart U-100 [Novolog FlexPen U-100 Insulin] 100 unit/mL (3 mL) insulin pen 16 unit SUBCUT AC torsemide 100 mg tablet 100 mg PO HS insulin glargine [Basaglar KwikPen U-100 Insulin] 100 unit/mL (3 mL) insulin pen 50 unit SUBCUT QAM sevelamer carbonate [Renvela] 800 mg Tablet 1,600 mg PO AC oxycodone 10 mg Tablet 10 mg PO QID metoprolol succinate 50 mg tablet extended release 24 hr 50 mg PO BID Patient Comments: does not take on mon/fri/fri before dialysis lidocaine-prilocaine 2.5-2.5 % cream 1 applic topical [id number] Rx Instructions: Apply to site 1 hour before Dialysis on Friday,Friday,Friday trazodone 100 mg tablet 100 mg PO HS Discharge Orders: Discharge Order (Routine); Ordered 07/11/22 Ordered By: Aren Kate Admission Data Admit Date/Time: 07/08/22 12:33 Attending Provider: Aren Kate Admit Provider: So Sanchez I. Primary Care Provider: Jaime Lovelace Other Providers: So Sanchez I. ; Nicki Thomson Other Interventions: Discharge Summary Assessment (RN) Last Done: 07/11/22 08:44
== END 2022-07-11 09:56 | disposition home or self-care (01) | DRG 638 ==
LOC: ED 06:12 → 2S 12:33 → SUATTDRO 12:33 → 2S 13:46